=== PATIENT | female | born 1935 | race Caucasian/White ===

== ENCOUNTER → 2017-11-02 | Outpatient (REF) | payer MEDICARE ==
[2017-11-02 17:28] LABS: PLATELET COUNT, AUTOMATED 154 10^3/uL (150-450)
[2017-11-02 17:37] LABS: INR 1.35; PROTHROMBIN TIME 16.8 SECONDS (12.1-14.4)
== END ==
LOC: M LAB REF 16:51
DX: Z01.812 Encounter for preprocedural laboratory examination (principal); Z79.899 Other long term (current) drug therapy; Z79.4 Long term (current) use of insulin
CPT/HCPCS: 85049

== ENCOUNTER → 2017-11-10 | Outpatient (CLI) | payer MEDICARE ==
[2017-11-10 12:36] LABS: BF MONONUCLEAR CELL % 98.3 % (0-0); BF POLYMORPHONUCLEAR CELL % 1.7 % (0-0); RBC BODY FLUID 23 10^3/uL (<2); WBC BODY FLUID 463 /uL (0-10)
[2017-11-10 12:37] LABS: APPEARANCE, BODY FLUID CLOUDY (CLEAR); BF DIFF IF INDICATED? YES (NO); PLEURAL FL COLOR AMBER (COLORLESS); SOURCE, BODY FLUID PLEURAL
[2017-11-10 12:48] LABS: PH BODY FLUID 7.525 UNITS (NOT ESTABLISHED); SOURCE, BODY FLUID pH PLEURAL
[2017-11-10 12:54] LABS: AMYLASE, BODY FLUID 26 U/L (NOT ESTABLISHED); LDH, BODY FLUID 126 U/L (NOT ESTABLISHED); SOURCE, BODY FLUID AMYLASE PLEURAL; SOURCE, BODY FLUID GLUCOSE PLEURAL; SOURCE, BODY FLUID LDH PLEURAL; SOURCE, BODY FLUID TOT PROTEIN PLEURAL; TOTAL PROTEIN, BODY FLUID 3.4 G/DL (NOT ESTABLISHED)
== END ==
LOC: M RADPRO 10:41
DX: J90 Pleural effusion, not elsewhere classified (principal); R06.00 Dyspnea, unspecified; R18.8 Other ascites
CPT/HCPCS: 32555

== ENCOUNTER → 2019-12-05 | Outpatient (CLI) | payer MEDICARE ==
[~2019-12-05] MED LIST: /GLIP10TAB OR; DIOVAN PO; FURO20TA2 PO; GLIP-162 PO; GLIP5TAB2 OR; GLUC1000 OR; LACT20EL PO; LANTINJ4 SC; OMEP-218 PO; SPIR50TA4 PO; VENTAER INH; VERA120C PO
--- NOTE | 2019-12-05 12:44 | REPVR ---
PROCEDURE INFORMATION: Exam: US Duplex Right Lower Extremity Veins, Limited Exam date and time: 12/05/2019 12:04 PM Age: 84 years old Clinical indication: Pain; Leg, lower; Right; Additional info: Pain in right lower leg, fell and broke calf bone 3 weeks ago, unsure which TECHNIQUE: Imaging protocol: Real-time Duplex ultrasound of the Right Lower Extremity with 2-D ferguson scale, color Doppler flow and spectral waveform analysis with image documentation. Limited exam was focused on the right lower extremity veins. COMPARISON: No relevant prior studies available. FINDINGS: Right deep veins: The common femoral, femoral, proximal profunda femoral and popliteal veins are patent without thrombus. Normal Doppler waveforms. Normal compressibility and/or augmentation response. Right superficial veins: Unremarkable. Saphenofemoral junction is patent without thrombus. Soft tissues: Unremarkable. IMPRESSION: No evidence of deep vein thrombosis. There is mild calcification in the wall of the mid to distal right femoral vein which could be secondary to a chronic thrombus. Electronically signed by: Eldon Shen On 12/05/2019 12:44:32 PM
== END ==
LOC: M RAD 11:42
PROVIDERS: ATTEND Physician Assistant Surgical
DX: M79.661 Pain in right lower leg (principal)

== ENCOUNTER 2020-02-25 13:08 | Inpatient (IN) | payer MEDICARE ==
[~2020-02-25] VITALS: Ht 152.4 cm; Wt 66.1 kg
[2020-02-25] MEDS ORDERED: GLUCOSE 4GM CHEW TABLET PO PRN (19:30)
[2020-02-25] MEDS ORDERED: GLUCAGON INJ 1MG VIAL SC PRN (19:30)
[2020-02-25] MEDS ORDERED: DEXTROSE 50% 50 ML SYRINGE IV PRN (19:30)
[2020-02-25] MEDS ORDERED: ACETAMINOPHEN TAB 650MG DOSE (2X325MG) PO PRN (19:30)
[2020-02-25] MEDS: LEVALBUTEROL 1.25 MG/0.5 ML CONCENTRATE NEB INH SCH (20:00)
[2020-02-25] MEDS ORDERED: TORS20TA2 PO (20:25)
[2020-02-25] MEDS ORDERED: SPIR-10 PO (20:25)
[2020-02-25] MEDS ORDERED: ASPI81TA26 PO (20:29)
[2020-02-25] MEDS ORDERED: INSULADS INJ (20:29)
[2020-02-25 20:46] LABS: MEAN CORPUSCULAR HGB CONC 32.4 g/dl (32.0-36.5); MEAN CORPUSCULAR VOLUME 104.8 fl (80.0-96.0); PLATELET COUNT, AUTOMATED 220 10^3/uL (150-450); RED BLOOD COUNT 3.53 10^6/uL (4.00-5.40); WHITE BLOOD COUNT 8.1 10^3/uL (4.0-10.0)
--- NOTE | 2020-02-25 20:57 | HPEPDOC ---
[facility] Medical History & Physical Date of Admission Feb 25, 2020 Date of Service: Feb 25, 2020 History and Physical Chief complaint: Transferred from [facility] for right hip fracture History of present illness: Patient is an 84-year-old female with a PMHx of Liver disease (reported Cirrhosis), Pacemaker, HTN, DLP, IDDM2, Murmur (since childhood) who presented February to [facility] as a transfer from [facility] after she had a right hip fracture. Patient reported that she has been in and out of the hospital after she had fallen on November 12. She has been at the [facility] in [facility] and was discharged on 02/23. Patient reported that that morning she was doing well. However, in the evening, she had fallen on her right side and reported severe pain. Patient went to [facility] over further evaluation and she was transferred to [facility] for orthopedic evaluation. Currently patient is seen resting in bed, does not appear to be in any discomfort. She denies any chest pain, shortness breath or palpitations. Patient reported that she fell yesterday. She did not lose consciousness or sustain any head trauma. Patient denies any nausea, vomiting about pain consultation, diarrhea, or urinary discomfort. Patient denies any stroke or heart attack. Reports that she has had a stress test several years ago and reports that 2 months ago she was able to go up and down a flight of stairs without any problems. Patient doesnt appear to be the best historian and I have contacted her sister Jo Ann at [phone]. Past Medical History: Liver disease (reported Cirrhosis), Pacemaker, HTN, DLP, IDDM2, Murmur (since childhood) Past Surgical History: Hysterectomy Appendectomy Cholecystectomy Allergies: See below Medications: See below Family History: - Reviewed and noncontributory Social History: - Denies the use of alcohol or illicit drugs; Quit smoking - Denies recent travel or sick contacts - Lives alone Review of Systems: 10 point review of systems complete, all negative otherwise stated in HPI Physical exam: - Vitals: BP [123/87], HR [74], RR [16], Sat [100%RA], Temp [98.5F] - General: Lying in bed, No acute distress, Speaking in full sentences, AAOx3 - HEENT: NC, AT, PERRLA, EOMI - CVS: RRR, +S1S2, + systolic murmur - Lungs: Fair air entry bilaterally, No appreciable wheezing / rales / rhonchi - Abdomen: Soft, Non-distended, Non-tender - Extremities: No lower extremity edema, No calf tenderness, R leg is externally rotated and shorter than Left - Neuro: No focal motor or sensory deficit - Skin: No visible rashes Labs: See below Imaging: See below EKG: See below Assessment and Plan: Right femoral neck fracture - likely 2/2 mechanical fall - Patient had fallen on the evening of 02/23 - Discussed with patient and sister; patient was discharged from [facility] in [place] on 02/23 and was not able to ambulate well - Patient denies any loss of consciousness or head trauma - Imaging from [facility] consistent with fracture of femoral neck - Orthopedic surgery has been consulted; will keep NPO post-midnight; plan for OR intervention at noon - Discussed with patient and sister patient is at moderate/high risk for low risk procedure - Lab work / CXR / EKG pending Liver disease (reported Cirrhosis) - Currently patient is oriented to person, place and time - Physical does not reveal any evidence of decompensated cirrhosis - Will check ultrasound of liver - Will check Ammonia - c/w Lactulose / Torsemide / Spironolactone Pacemaker - Discussed with sister. Patient has had a pacemaker and lead change October 2019 - Will check EKG HTN - BP currently well controlled DLP - Currently not on medications IDDM2 - Will c/w ISS and long acting insulin (dose unverified) - Will continue with twice a day dosing of Levemir and adjust based on glucose levels Murmur - As per sister patient has had this since childhood - Will get ECHO GERD - Will c/w Omeprazole DVT prophylaxis - Will start TEDs/Sequentials pre-surgery; post-surgery will be as per orthopedic surgery Laboratory Data Labs 24H Laboratory Tests 2 02/25/20 20:27: Nucleated Red Blood Cells % (auto) 0.0 CBC/BMP Laboratory Tests 02/25/20 20:27 Home Medications Scheduled Aspirin (Aspirin EC) 81 Mg Tablet.dr, 81 MG PO DAILY Glipizide (Glipizide Xl) 5 Mg Tab, 5 MG PO DAILY TAKES @ 1130 Insulin Glargine (Lantus) 100 Unit/1 Ml Vial, Unknown Dose INJ QHS PT'S SISTER STATES THAT [facility] CHANGED THE DOSE BUT WASN'T SURE TO WHAT DEGREE. Lactulose (Lactulose) 10 Gm/15 Ml Skylar, 30 ML PO TID Omeprazole (Omeprazole) 20 Mg Cap, 20 MG PO DAILY Spironolactone (Spironolactone) 25 Mg Tablet, 25 MG PO DAILY Torsemide (Torsemide) 20 Mg Tablet, 20 MG PO DAILY PT WAS ON FUROSEMIDE 20MG DAILY. CHANGED BY [facility] TO TORSEMIDE Scheduled PRN Albuterol Sulfate (Ventolin Hfa) 108 Mcg/Act Aer, 2 PUFF INH Q4H PRN for SHORTNESS OF BREATH Allergies Coded Allergies: No Known Drug Allergies (Verified Allergy, Unknown, 02/25/20) meperidine (Verified Adverse Reaction, Mild, N/V, 02/25/20) EZEQUIEL SANCHES MD Feb 25, 2020 20:57
--- NOTE | 2020-02-25 20:57 | REPVR ---
PROCEDURE INFORMATION: Exam: XR Chest, 1 View Exam date and time: 02/25/2020 8:16 PM Age: 84 years old Clinical indication: Shortness of breath; Additional info: Pre-op TECHNIQUE: Imaging protocol: XR of the chest Views: 1 view. COMPARISON: CT Chest without contrast 11/10/2017 12:18 PM FINDINGS: Lungs: There is right basilar atelectasis and volume loss in the right hemithorax. Pleural space: There is a moderate to large right pleural effusion. No pneumothorax is identified. Heart/Mediastinum: There is a left subclavian pacemaker device in place with intact leads projecting over the expected locations of the right atrium and right ventricle. No cardiomegaly is noted. There is a shift of the mediastinum to the right of midline. Bones/joints: Unremarkable. IMPRESSION: Moderate to large right pleural effusion with associated right basilar atelectasis. Electronically signed by: Jose Navarro On 02/25/2020 20:56:59 PM
[2020-02-25 20:59] LABS: INR 1.4; PROTHROMBIN TIME 17.5 SECONDS (12.5-14.3)
[2020-02-25 21:00] VITALS: BP 127/71
[2020-02-25] MEDS: HumaLOG INSULIN (NovoLOG) PER UNIT SC SCH (21:00)
[2020-02-25 21:14] LABS: ALBUMIN 2.5 GM/DL (3.2-5.2); BILIRUBIN,TOTAL 2.9 MG/DL (0.2-1.0); CALCIUM LEVEL 10.4 MG/DL (8.8-10.2); CREATININE FOR GFR 0.99 MG/DL (0.55-1.30); GLOMERULAR FILTRATION RATE 56.9 (>32); POTASSIUM SERUM 3.7 MEQ/L (3.5-5.1); TOTAL PROTEIN 7.8 GM/DL (6.4-8.2)
[2020-02-25 21:22] LABS: FREE T4 1.31 NG/DL (0.76-1.46); THYROID STIMULATING HORMONE 1.37 uIU/ML (0.358-3.740)
[2020-02-25] MEDS ORDERED: LEVALBUTEROL 1.25 MG/0.5 ML CONCENTRATE NEB INH PRN (22:00)
[2020-02-25 22:03] LABS: CORTISOL PM 14.2 UG/DL (3.1-16.7); TOTAL T3 71.3 NG/DL (60.0-181.0)
[2020-02-25] MEDS: LEVEMIR (INSULIN DETEMIR) 1 UNITS/0.01ML SC SCH (22:39)
--- NOTE | 2020-02-25 22:46 | CR ---
CONSULTATION REASON FOR CONSULTATION: Right femoral neck fracture. HISTORY OF PRESENT ILLNESS: An 84-year-old female who was recently discharged from the [facility] up in [place], went home and then during the evening got up out of bed and apparently fell and she complained of right hip pain and presented to [facility] and was found to have a right femoral neck fracture. She was in rehab recovering from a right proximal tibia fracture which was treated closed with just a cast. She was initially treated for that down at [facility] and then followed up at [facility]. She has resolved that. She complains of isolated soreness of the right hip. No loss of consciousness. No tingling or numbness otherwise and she is transferred and admitted to [address] [place] [address] where I am seeing her in consultation with Dr. Corbett, the Hospitalist. She complains only of right hip pain at the present time. PAST MEDICAL HISTORY: The patient's past medical history is significant for: 1. Insulin dependent diabetes mellitus. 2. Liver failure. 3. Coronary artery disease. 4. Arrhythmias with syncopal episodes. 5. Hypertension. 6. Asthma. 7. History of pulmonary hypertension. PAST SURGICAL HISTORY: The patient's past surgical history is significant for: 1. Pacemaker placement with battery changes. 2. Appendectomy. 3. Cholecystectomy. 4. Hysterectomy. ALLERGIES: Demerol. MEDICATIONS: 1. Lactulose. 2. Omeprazole. 3. Albuterol. 4. Insulin. 5. Multivitamin. 6. Nadolol. 7. Spironolactone. 8. Torsemide. 9. Glipizide. 10. Magnesium Oxide. 11. Loperamide. SOCIAL HISTORY: She does not smoke. She quit many years ago. She does not drink alcohol. She is , lives alone in the [place] area. She has a sister in [place], named Jo Ann. She has no children. PHYSICAL EXAMINATION: GENERAL APPEARANCE: This is a pleasant female. She is actually alert and oriented. VITAL SIGNS: Temperature is 97.5 with a pulse of 70, respirations 20, blood pressure 113/68. HEENT: Normocephalic and atraumatic. The extraocular muscles grossly normal. NECK: Nontender. EXTREMITIES: Upper extremities she could elevate up over her head. There is no pain, soreness, crepitance or deformity noted of her shoulders, humeri, elbows, forearms or wrists. LUNGS: Diffuse, scattered, mild wheezes. HEART: There was a heart murmur that we could hear. ABDOMEN: Obese but nontender. EXTREMITIES: Right lower extremity was shortened and externally rotated with good strong dorsalis pedis pulse. She could dorsi flex and plantar flex her ankle well with normal sensation to light touch. Left lower extremity was benign on exam. LABORATORY DATA: White count of 9.4, hematocrit 33, platelets 190 with a sodium of 131, potassium 3.7, chloride 96, bicarbonate 28.9, BUN 15, creatinine 1.1. She did have an elevated alkaline phosphatase of 372 and an elevated bilirubin of 2.9 which apparently is chronic from her liver failure. IMAGING DATA: X-rays of the right hip showed a displaced femoral neck fracture. She had a head CT which by report is normal and showed no acute findings. IMPRESSION: Right displaced femoral neck fracture in an 84-year-old female with multiple medical comorbidities. PLAN: She is being admitted and evaluated by the Hospitalist, Dr. Corbett, who we examined her together and discussed the nature of her problems and nature of her fracture, and I discussed this with her in detail. I would recommend a right hip hemiarthroplasty for this type of fracture for her, but this does carry the risk of having surgery which I discussed with her. There is a risk of infection, damage to nerves, blood vessels, anesthetic complications, phlebitis, embolism, heart attack, , amongst others. She understands when I explained this to her. We plan to get her medically optimized and hopefully proceed with surgery tomorrow if she is felt to be medically optimized. So she signed the consent tonight and we plan for subsequently tomorrow. [facility]
[2020-02-26] VITALS (7 sets, daily range): BP systolic 96–127; BP diastolic 60–73
[2020-02-26] MEDS: LACTULOSE 20 GM/30 ML SYRUP UD PO SCH ×5 (00:36→23:38)
--- NOTE | 2020-02-26 02:22 | REPVR ---
PROCEDURE INFORMATION: Exam: US Abdomen, Limited; Right Upper Quadrant Exam date and time: 02/25/2020 9:47 PM Age: 84 years old Clinical indication: Cirrhosis; Patient HX: PT is confused and is a poor historian TECHNIQUE: Imaging protocol: US abdomen. Real time ultrasound with image documentation. Limited exam focused on the right upper quadrant. COMPARISON: CT Chest without contrast 11/10/2017 12:18:58 PM FINDINGS: Liver: The liver has a nodular contour, which can be seen with cirrhosis. There is a 3.4 cm x 3.9 cm x 3.6 cm heterogeneous lesion in the right hepatic lobe. Gallbladder: There has been a cholecystectomy. There is no fluid collection in the gallbladder fossa. Common bile duct: The common bile duct is dilated and measures 12 mm in diameter at the level of the feroz hepatis, which is stable compared to the prior CT chest on 11/10/2017. Pancreas: The imaged portion of the pancreas is unremarkable. Right kidney: The right kidney measures 9.9 cm in length. There is a 1.5 cm x 1.6 cm x 1.7 cm benign-appearing simple exophytic cyst arising from the upper pole of the right kidney, for which imaging follow-up is not recommended. Portal venous: The main portal vein is dilated and measures 15 mm in diameter. Intraperitoneal space: No free fluid is seen from the images obtained. IMPRESSION: Cirrhotic liver with a 3.4 cm x 3.9 cm x 3.6 cm lesion in the right hepatic lobe. Further with a multiphasic liver protocol MRI abdomen without and with intravenous contrast is suggested. COMMENTS: Consistent with the [employer]'s Incidental Findings Committee white paper (J Am Lucía Radiol 2018): Any incidental renal lesion less than 1 cm or classified as too small to characterize, or any incidental cystic renal lesion characterized as simple-appearing, is likely benign. No follow-up imaging is recommended for these lesions per consensus recommendations based on imaging criteria. Electronically signed by: Jose Navarro On 02/26/2020 02:22:52 AM
[2020-02-26] MEDS: ceFAZolin SOD 2 GM in IV 1 EA IV ONE ×2 (06:00→06:29)
[2020-02-26] MEDS: HumaLOG INSULIN (NovoLOG) PER UNIT SC SCH ×4 (07:30→21:00)
[2020-02-26] MEDS: LEVALBUTEROL 1.25 MG/0.5 ML CONCENTRATE NEB INH SCH ×4 (07:47→20:13)
[2020-02-26] MEDS: LEVEMIR (INSULIN DETEMIR) 1 UNITS/0.01ML SC SCH ×2 (07:59→22:27)
[2020-02-26 08:21] LABS: BASO # 0.1 10^3/uL (0.0-0.2); BASO % 0.8 % (0.0-1.0); EOS # 0.1 10^3/uL (0.0-0.5); EOS % 2.1 % (0.0-3.0); HEMATOCRIT 36.7 % (36.0-47.0); HEMOGLOBIN 11.6 g/dl (12.0-15.5); LYMPH # 0.7 10^3/uL (1.5-5.0); LYMPH % 9.9 % (24.0-44.0); MEAN CORPUSCULAR HEMOGLOBIN 33.5 pg (27.0-33.0); MEAN CORPUSCULAR HGB CONC 31.6 g/dl (32.0-36.5); MEAN CORPUSCULAR VOLUME 106.1 fl (80.0-96.0); MONO # 0.9 10^3/uL (0.0-0.8); MONO % 14.4 % (0.0-5.0); NEUTROPHILS # 4.7 10^3/uL (1.5-8.5); NEUTROPHILS % 72.3 % (36.0-66.0); PLATELET COUNT, AUTOMATED 212 10^3/uL (150-450); RED BLOOD COUNT 3.46 10^6/uL (4.00-5.40); WHITE BLOOD COUNT 6.6 10^3/uL (4.0-10.0)
[2020-02-26 08:41] LABS: ALBUMIN 2.2 GM/DL (3.2-5.2); BILIRUBIN,TOTAL 2.6 MG/DL (0.2-1.0); CALCIUM LEVEL 10.2 MG/DL (8.8-10.2); CREATININE FOR GFR 1.1 MG/DL (0.55-1.30); GLOMERULAR FILTRATION RATE 50.4 (>32); MAGNESIUM LEVEL 1.9 MG/DL (1.8-2.4); TOTAL PROTEIN 7.2 GM/DL (6.4-8.2)
[2020-02-26] MEDS ORDERED: PANTOPRAZOLE 40MG VIAL (C9113 PER 1) IV ONE (09:00)
[2020-02-26] MEDS ORDERED: TORSEMIDE 20 MG TAB PO SCH (09:00)
[2020-02-26] MEDS ORDERED: OMEPRAZOLE 20 MG CAP PO SCH (09:00)
[2020-02-26] MEDS ORDERED: SPIRONOLACTONE 25 MG TAB PO SCH (09:00)
--- NOTE | 2020-02-26 12:42 | REP ---
INDICATION: R effusion COMPARISON: 03/18/2019 TECHNIQUE: Real time ferguson scale ultrasound examination using curved array transducer. FINDINGS: Directed limited examination along the right posterior inferior hemithorax demonstrates very minimal amount of complex pleural fluid below the limits for safe thoracentesis. IMPRESSION: Small amount of right pleural fluid insufficient for thoracentesis. <Electronically signed by Glenn Mohr > 02/26/20 [id number]
[2020-02-26] MEDS ORDERED: ceFAZolin 1GM VIAL (J0690 PER 500MG) As Ordered ONE (12:53)
[2020-02-26] MEDS ORDERED: EPINEPHrine INJ 1 MG/ML 1ML AMP As Ordered ONE (12:53)
[2020-02-26] MEDS ORDERED: NS 500 ML IV ONE (14:15)
[2020-02-26] MEDS ORDERED: NS 1,000 ML IV SCH (14:15)
--- NOTE | 2020-02-26 14:29 | ECGEPIP ---
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
[2020-02-26] MEDS ORDERED: ceFAZolin 2 GM/D5W 50 ML IV BAG (J0690 PER 500MG) As Ordered ONE (15:03)
[2020-02-26] MEDS ORDERED: LIDOCAINE 2% 100MG/5ML SDV (FOR ANES.) As Ordered ONE (15:07)
[2020-02-26] MEDS ORDERED: fentaNYL 100 MCG/2 ML INJECTION (J3010) As Ordered ONE ×2 (15:07→18:51)
[2020-02-26] MEDS ORDERED: propofoL 500 MG/50 ML VIAL As Ordered ONE (15:07)
[2020-02-26] MEDS ORDERED: MIDAZOLAM INJ 2MG/2ML VIAL (J2250 PER 1MG) As Ordered ONE (15:07)
[2020-02-26] MEDS ORDERED: KETAMINE HCL 200 MG/20 ML VIAL As Ordered ONE (15:59)
[2020-02-26] MEDS ORDERED: PHENYLEPHRINE 10MG/ML 1ML VIAL (J2370 PER 1) As Ordered ONE (16:25)
[2020-02-26] MEDS ORDERED: PHENYLephrine HCL 500 MCG/5 ML (100MCG/ML) SYRINGE (J2370) As Ordered ONE ×2 (16:34→18:51)
[2020-02-26] MEDS ORDERED: fentaNYL 100 MCG/2 ML INJECTION (J3010) IV PRN (19:00)
[2020-02-26] MEDS ORDERED: LR 1,000 ML IV SCH (19:00)
[2020-02-26] MEDS ORDERED: oxyCODONE 5MG TAB PO PRN (19:00)
--- NOTE | 2020-02-26 19:04 | REP ---
INDICATION: POST OP. COMPARISON: None. TECHNIQUE: AP and cross-table lateral portably obtained radiographs of the right hip. FINDINGS: Lateral skin zach and periarticular soft tissue emphysema is seen. Right femoral head is been replaced. Right hip joint is rib normally aligned. Femoral stem prosthesis is in good position. IMPRESSION: Status post hemiarthroplasty right hip. <Electronically signed by Abdiel Vieira > 02/26/20 [id number]
[2020-02-26] MEDS ORDERED: LR 500 ML IV SCH (19:15)
[2020-02-26] MEDS ORDERED: PHENYLephrine HCL 500 MCG/5 ML (100MCG/ML) SYRINGE (J2370) IV SCH (19:15)
--- NOTE | 2020-02-26 20:10 | IPNPDOC ---
Subjective Date Seen The patient was seen on 02/26/20. Subjective Chief Complaint/HPI Ms. Cabello is an 84 year old female with history of cirrhosis and recent right hip fracture who is here after having a fall and fracturing the right femur neck. This morning, denies fever, chest pain, abdominal pain, or dysuria. She says she gets short of breath with anxiety, but otherwise, no shortness of breath at rest. Imaging demonstrated right pleural effusion. Spoke with IR about draining fluid. They were unable to perform thoracentesis since she cannot sit upright with her hip fracture. Spoke with pulmonology. It appears that her lung did not re-expand after thoracentesis in 2018, so she had an entrapped lung and it may be a chronic finding. Patient was saturating well at room air. Otherwise spoke with Cardiology about echocardiogram. EF was good and patient had moderate aortic stenosis. RCRI score of 1 which correlates to class II risk. There is no contraindication to surgery. Patient to go down to OR today. Objective Physical Examination General Exam: Positive: Cooperative Eye Exam: Positive: EOMI; Negative: Sclera icteric ENT Exam: Positive: Atraumatic Neck Exam: Positive: Supple Chest Exam: Positive: Diminished (right side) Heart Exam: Positive: Rate Normal, Regular Rhythm Abdomen Exam: Positive: Normal bowel sounds, Soft; Negative: Tenderness Extremity Exam: Negative: Edema Neuro Exam: Positive: Normal Speech Psych Exam: Positive: Mental status NL, Mood NL Assessment /Plan Assessment Ms. Cabello is an 84 year old female with history of cirrhosis and recent right hip fracture who is here after having a fall and fracturing the right femur neck. XR findings of right lung may be chronic as her lung did not re-expand in 2018. 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 Respiratory status stable. RCRI score of 1 which is class II risk (for insulin dependent diabetes mellitus). Echocardiogram demonstrated moderate aortic stenosis. There is no contraindication to surgery. Patient to go to the OR today. Plan/VTE VTE Prophylaxis Ordered?: Yes Plan 1. Right femoral neck fracture 2/2 mechanical fall -Orthopedic surgery consulted, recommendations appreciated -Went to the OR on 02/26/2020 -Most likely will need acute rehab 2. Right entrapped lung -Thoracentesis in 2018 did not re-expand lung -Finding may be chronic -Saturating well at room air -Will request pulmonary to see patient tomorrow after procedure 3. Cirrhosis -Continue with Torsemide, spironolactone, and lactulose 4. DM -Continue insulin sliding scale and levemir 5. Pacemaker -Placed for recurrent syncopal episode due to bradycardia. [place] [address]avi and Dr[address] Watts 6. GERD -Continue omeprazole 7. DVT ppx -Per orthopedic recommendation VS, I&O, 24H, Fishbone Vital Signs/I&O Vital Signs Date Time Temp Pulse Resp B/P (MAP) Pulse Ox O2 Delivery O2 Flow Rate FiO2 02/26/20 19:10 97.8 69 18 104/58 (73) 97 Room Air 02/26/20 18:06 2 I&O- Last 24 Hours up to 6 AM 02/26/20 06:00 Intake Total 0 ml Output Total 200 ml Balance -200 ml Laboratory Data 24H LABS Laboratory Tests 2 02/25/20 20:27: Nucleated Red Blood Cells % (auto) 0.0, Prothrombin Time 17.5H, Prothromb Time International Ratio 1.40, Anion Gap 6L, Glomerular Filtration Rate 56.9, Osmolality 288, Calcium Level 10.4H, Total Bilirubin 2.9H, Gamma Glutamyl Transferase 196H, Aspartate Amino Transf (AST/SGOT) 37, Alanine Aminotransferase (ALT/SGPT) 12, Alkaline Phosphatase 365H, Ammonia 45H, Total Protein 7.8, Albumin 2.5L, Albumin/Globulin Ratio 0.5L, Procalcitonin 0.24, Thyroid Stimulating Hormone (TSH) 1.370, Free Thyroxine 1.31, Total Triiodothyronine 71.3, Cortisol PM Sample 14.2 02/26/20 03:20: Coronavirus (COVID-19)(PCR) NEGATIVE 02/26/20 07:30: Urine Random Osmolality 495L, Urine Random Creatinine 102.0, Urine Random Sodium 35 02/26/20 07:56: Bedside Glucose (Misc Panel) 128H 02/26/20 08:02: Immature Granulocyte % (Auto) 0.5, Neutrophils (%) (Auto) 72.3H, Lymphocytes (%) (Auto) 9.9L, Monocytes (%) (Auto) 14.4H, Eosinophils (%) (Auto) 2.1, Basophils (%) (Auto) 0.8, Neutrophils # (Auto) 4.7, Lymphocytes # (Auto) 0.7L, Monocytes # (Auto) 0.9H, Eosinophils # (Auto) 0.1, Basophils # (Auto) 0.1, Nucleated Red Blood Cells % (auto) 0.0, Anion Gap 5L, Glomerular Filtration Rate 50.4, Calcium Level 10.2, Magnesium Level 1.9, Total Bilirubin 2.6H, Aspartate Amino Transf (AST/SGOT) 34, Alanine Aminotransferase (ALT/SGPT) 12, Alkaline Phosphatase 318H, Lactate Dehydrogenase 277H, Total Protein 7.2, Albumin 2.2L, Albumin/Globulin Ratio 0.4L 02/26/20 12:23: Bedside Glucose (Misc Panel) 150H 02/26/20 18:22: Bedside Glucose (Misc Panel) 165H CBC/BMP Laboratory Tests 02/25/20 20:27 02/26/20 08:02 PREMA DEL VALLE DO Feb 26, 2020 20:10
[2020-02-26] MEDS: LR 1,000 ML IV SCH (22:27)
[2020-02-26] MEDS: ASPIRIN 81 MG CHEW TABLET PO SCH (22:27)
[2020-02-26] MEDS: ceFAZolin SOD 2 GM in IV 1 EA IV SCH (23:36)
[2020-02-27 00:30] VITALS: BP 106/60
[2020-02-27 04:30] VITALS: BP 106/61
[2020-02-27] MEDS: LACTULOSE 20 GM/30 ML SYRUP UD PO SCH ×2 (05:33→12:20)
[2020-02-27] MEDS: ceFAZolin SOD 2 GM in IV 1 EA IV SCH ×2 (05:33→15:15)
[2020-02-27 05:55] LABS: BASO % 0.5 % (0.0-1.0); EOS % 0.5 % (0.0-3.0); HEMATOCRIT 27.6 % (36.0-47.0); LYMPH # 0.5 10^3/uL (1.5-5.0); LYMPH % 7.5 % (24.0-44.0); MEAN CORPUSCULAR HEMOGLOBIN 33.5 pg (27.0-33.0); MEAN CORPUSCULAR HGB CONC 30.8 g/dl (32.0-36.5); MEAN CORPUSCULAR VOLUME 108.7 fl (80.0-96.0); MONO # 1.2 10^3/uL (0.0-0.8); MONO % 17.7 % (0.0-5.0); NEUTROPHILS # 4.8 10^3/uL (1.5-8.5); NEUTROPHILS % 73.3 % (36.0-66.0); PLATELET COUNT, AUTOMATED 198 10^3/uL (150-450); RED BLOOD COUNT 2.54 10^6/uL (4.00-5.40); WHITE BLOOD COUNT 6.6 10^3/uL (4.0-10.0)
[2020-02-27 06:00] LABS: HEMOGLOBIN 8.5 g/dl (12.0-15.5)
[2020-02-27] MEDS ORDERED: traMADol 50 MG TAB PO PRN (06:15)
[2020-02-27 06:19] LABS: ALBUMIN 1.9 GM/DL (3.2-5.2); BILIRUBIN,TOTAL 2.3 MG/DL (0.2-1.0); CALCIUM LEVEL 9.3 MG/DL (8.8-10.2); CREATININE FOR GFR 1.34 MG/DL (0.55-1.30); GLOMERULAR FILTRATION RATE 40.1 (>32); MAGNESIUM LEVEL 1.7 MG/DL (1.8-2.4); POTASSIUM SERUM 4.3 MEQ/L (3.5-5.1); TOTAL PROTEIN 5.8 GM/DL (6.4-8.2)
[2020-02-27] MEDS: LEVALBUTEROL 1.25 MG/0.5 ML CONCENTRATE NEB INH SCH ×3 (07:18→15:19)
[2020-02-27] MEDS: LR 1,000 ML IV SCH (07:30)
[2020-02-27] MEDS: ACETAMINOPHEN 500 MG TAB PO SCH ×2 (08:54→15:15)
[2020-02-27] MEDS: MIRALAX *UNIT DOSE* 17GM PACKET PO SCH ×2 (09:00→09:45)
[2020-02-27] MEDS: MOM 30ML SUSPENSION UDC PO SCH ×2 (09:00→09:45)
[2020-02-27] MEDS: ASPIRIN 81 MG CHEW TABLET PO SCH (09:45)
[2020-02-27] MEDS: LEVEMIR (INSULIN DETEMIR) 1 UNITS/0.01ML SC SCH (09:46)
[2020-02-27] MEDS: HumaLOG INSULIN (NovoLOG) PER UNIT SC SCH ×2 (09:47→12:19)
[2020-02-27 10:00] VITALS: BP 86/49
[2020-02-27 11:00] LABS: HEMATOCRIT 25.7 % (36.0-47.0); HEMOGLOBIN 8.3 g/dl (12.0-15.5); MEAN CORPUSCULAR HEMOGLOBIN 34.4 pg (27.0-33.0); MEAN CORPUSCULAR HGB CONC 32.3 g/dl (32.0-36.5); MEAN CORPUSCULAR VOLUME 106.6 fl (80.0-96.0); PLATELET COUNT, AUTOMATED 192 10^3/uL (150-450); RED BLOOD COUNT 2.41 10^6/uL (4.00-5.40); WHITE BLOOD COUNT 8.1 10^3/uL (4.0-10.0)
[2020-02-27] MEDS ORDERED: NS 500 ML IV ONE (11:45)
[2020-02-27 12:23] VITALS: BP 105/59
[2020-02-27 13:27] VITALS: BP 103/59
[2020-02-27 14:00] VITALS: BP 104/75
[2020-02-27] MEDS ORDERED: MOM30SS2 PO (14:29)
[2020-02-27] MEDS ORDERED: INSUDET SC (14:29)
[2020-02-27] MEDS ORDERED: ACET-683 PO (14:29)
[2020-02-27] MEDS ORDERED: ASPI81CH8 PO (14:29)
[2020-02-27] MEDS ORDERED: INSUHUMDS SC ×2 (14:29)
[2020-02-27] MEDS ORDERED: LEVA12INH INH (14:29)
[2020-02-27] MEDS ORDERED: TRAM50TA2 PO (14:29)
[2020-02-27] MEDS ORDERED: PEG1POW PO (14:29)
--- NOTE | 2020-02-28 00:15 | DS.PDOC ---
Discharge Summary General Date of Admission Feb 25, 2020 at 18:05 Date of Discharge Feb 27, 2020 Attending Physician: PREMA DEL VALLE DO Specialist/Consultants [facility] Orthopedic surgery, Dr. Millard Pulmonary, Dr. Guerrero Discharge Summary PROCEDURES PERFORMED DURING STAY: Hemiarthroplasty of right hip, cemented on 02/26/2020 ADMITTING DIAGNOSES: 1. Right femoral neck fracture 2/2 fall 2. Cirrhosis 3. Bradycardia s/p pacemaker placement 4. HTN 5. Dyslipidemia 6. Diabetes Mellitus type 2 7. GERD DISCHARGE DIAGNOSES: 1. Right femoral neck fracture 2/2 fall 2. Cirrhosis 3. Bradycardia s/p pacemaker placement 4. HTN 5. Dyslipidemia 6. Diabetes Mellitus type 2 7. GERD COMPLICATIONS/CHIEF COMPLAINT: Right Fem Neck Fracture. HISTORY OF PRESENT ILLNESS: Mrs. Cabello is an 84 year old female with cirrhosis, DM2, and bradycardia s/p pacemaker transferred here from [facility] transferred here for a mechanical fall with subsequent right hip fracture. Patient had completed rehabilitation in [facility] and was discharged on 02/23. On the same day of discharge, she had mechanical fall on her right side and had severe pain. Patient went to [place] for further evaluation and was transferred here for orthopedic evaluation. HOSPITAL COURSE: During pre-op workup, it was noted that she had right pleural effusion. Discussed with pulmonary about case. In 2018, patient had a right thoracentesis and right lung has not re-expanded afterwards. 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 The pleural effusion in the CXR is actually the heart shifted to the right, and the effusion is mild. Patient went to surgery on 02/26/2020. Today, she denies any fever, chest pain, or abdominal pain. Dyspnea is not worse than before. Touched base with orthopedic surgery. Aspirin 81mg BID for 35 days for DVT ppx. DISCHARGE MEDICATIONS: Please see below. ALLERGIES: Please see below. PHYSICAL EXAMINATION ON DISCHARGE: VITAL SIGNS: Please see below. GENERAL: Comfortable, in no apparent distress. HEENT: EOMI, sclera clear. NECK: Supple. RESPIRATORY: Diminished breath sound on right lower side. CARDIOVASCULAR: Regular rate and rhythm. ABDOMEN: Soft, nontender, no guarding or rebound tenderness. Normal bowel sounds. MUSCLE SKELETAL: No pitting edema NEUROLOGICAL: CN 312 grossly intact, no focal deficits noted. PSYCHOLOGICAL: Normal mood and affect LABORATORY DATA: Please see below. IMAGING: Chest x-ray Moderate to large right pleural effusion with associated right basilar atelectasis. PROGNOSIS: Stable ACTIVITY: Weightbearing as tolerated. DIET: Carbohydrate consistent DISCHARGE PLAN: Transfer to ARU DISPOSITION: 70 Xfer Other. DISCHARGE INSTRUCTIONS: 1. With her provider at ARU 2. Continue aspirin 81mg BID for 35 days for DVT ppx per orthopedic 3. Weight bearing as tolerated DISCHARGE CONDITION: Stable Total time spent on discharge planning, discharge summary, and medication reconciliation: 45 minutes. Vital Signs/I&Os Vital Signs Date Time Temp Pulse Resp B/P (MAP) Pulse Ox O2 Delivery O2 Flow Rate FiO2 02/27/20 14:00 98.6 73 18 104/75 (85) 95 Room Air 02/27/20 08:53 1.0 I&O- Last 24 Hours up to 6 AM 02/27/20 06:00 Intake Total 2990 ml Output Total 400 ml Balance 2590 ml Laboratory Data Labs 24H Laboratory Tests 2 02/27/20 05:25: Immature Granulocyte % (Auto) 0.5, Neutrophils (%) (Auto) 73.3H, Lymphocytes (%) (Auto) 7.5L, Monocytes (%) (Auto) 17.7H, Eosinophils (%) (Auto) 0.5, Basophils (%) (Auto) 0.5, Neutrophils # (Auto) 4.8, Lymphocytes # (Auto) 0.5L, Monocytes # (Auto) 1.2H, Eosinophils # (Auto) 0.0, Basophils # (Auto) 0.0, Nucleated Red Blood Cells % (auto) 0.3H, Anion Gap 9, Glomerular Filtration Rate 40.1, Calcium Level 9.3, Magnesium Level 1.7L, Total Bilirubin 2.3H, Aspartate Amino Transf (AST/SGOT) 28, Alanine Aminotransferase (ALT/SGPT) 8L, Alkaline Phosphatase 241H, Total Protein 5.8L, Albumin 1.9L, Albumin/Globulin Ratio 0.5L 02/27/20 10:38: Nucleated Red Blood Cells % (auto) 0.0 02/27/20 11:30: Bedside Glucose (Misc Panel) 268H CBC/BMP Laboratory Tests 02/27/20 05:25 02/27/20 10:38 FSBS Laboratory Tests Test 02/27/20 11:30 Range/Units Bedside Glucose (Misc Panel) 268 83-110 MG/DL Discharge Medications Scheduled Acetaminophen (Acetaminophen) 500 Mg Tablet, 1,000 MG PO Q8H Aspirin (Children's Aspirin) 81 Mg Tab.chew, 81 MG PO BID To continue for 35 days Insulin Detemir (Levemir) 100 Unit/1 Ml Vial, 10 UNITS SC BID Insulin Human Lispro (Humalog) 100 Unit/1 Ml Vial, 0 UNITS SC AC Insulin Human Lispro (Humalog) 100 Unit/1 Ml Vial, 0 UNITS SC QHS Lactulose (Lactulose) 10 Gm/15 Ml Skylar, 30 ML PO TID, (Reported) Magnesium Hydroxide (Milk of Magnesia) 400 Mg/5 Ml Oral.susp, 30 ML PO DAILY Omeprazole (Omeprazole) 20 Mg Cap, 20 MG PO DAILY, (Reported) Polyethylene Glycol 3350 (Polyethylene Glycol 3350) 17 Gm Powd.pack, 1 PKT PO DAILY Spironolactone (Spironolactone) 25 Mg Tablet, 25 MG PO DAILY, (Reported) Torsemide (Torsemide) 20 Mg Tablet, 20 MG PO DAILY, (Reported) PT WAS ON FUROSEMIDE 20MG DAILY. CHANGED BY OLLA Indelsul TO TORSEMIDE Scheduled PRN Levalbuterol Hydrochloride (Xopenex Concentrate) 1.25 Mg/0.5 Ml Vial.neb, 0.63 MG INH Q2HP PRN for SOB/WHEEZING Tramadol HCl (Tramadol HCl) 50 Mg Tablet, 50 MG PO Q4HP PRN for MODERATE PAIN (PS 5-7) Allergies Coded Allergies: No Known Drug Allergies (Verified Allergy, Unknown, 02/25/20) meperidine (Verified Adverse Reaction, Mild, N/V, 02/25/20) PREMA DEL VALLE DO Feb 27, 2020 22:10
--- NOTE | 2020-03-02 09:41 | ECHO ---
DATE OF PROCEDURE: 02/26/2020 Age: 84 Gender: Female REFERRING PHYSICIAN: Milton Gilliland DO PATIENT LOCATION: Room 5144 REASON FOR STUDY: Heart murmur, preop. 2D MEASUREMENTS: IVS 1.7 cm LV 3.0 cm LVPW 1.4 cm LA 2.7 cm Aorta 3.2 cm DOPPLER MEASUREMENT Peak velocity across the aortic valve 2.7 msec Peak velocity across the LVOT 1.6 msec Mitral E 0.83 Mitral A 1.4 with a ratio of 0.6 2D COMMENTS: 1. Normal left ventricular size with moderately increased left ventricular wall thickness. Left ventricular systolic function is normal, estimated at 55% to 60%. 2. Normal left atrium. Normal right atrium and right ventricle. 3. The atrial septum appeared to be normal without evidence of defect or shunt. 4. Normal aortic root. 5. A small pericardial effusion was noted, no evidence of cardiac tamponade. 6. Mildly to moderately calcified aortic valve with decreased leaflet excursion. Mildly calcified mitral annulus with normal anterior mitral valve leaflet motion. Normal tricuspid valve. The pulmonic valve also appeared to be normal. The proximal pulmonary artery branches were not well visualized. 7. The inferior vena cava was normal in size, central venous pressure is most likely normal. Doppler detects mild aortic regurgitation. Abnormal relaxation pattern was noted across the mitral valve leaflets, as well as the mitral valve annulus consistent with features of grade 1 left ventricular diastolic dysfunction. IMPRESSION: 1. Normal global left ventricular systolic function with probably moderate concentric left ventricular hypertrophy. There are some features of left ventricular diastolic dysfunction manifested by abnormal relaxation, grade 1. 2. Aortic valve sclerosis with [id number] aortic stenosis and mild aortic regurgitation. 3. Isolated mitral annulus calcification. 4. A small pericardial effusion was noted. No evidence of cardiac tamponade. The above findings were discussed with Dr. Xiao prior to the patients surgery. MAAME
== END 2020-02-27 15:45 | DRG 522 ==
LOC: M MS5PR 18:05 → M RR INP 02-26 18:49 → M MS5PR 02-26 19:54
PROVIDERS: ADMIT Internal Medicine; ATTEND Internal Medicine
PROC: 0W993ZZ Drainage of Right Pleural Cavity, Percutaneous Approach (ICD-10-PCS; 2020-02-26)
PROC: 0SRR0J9 Replacement of Right Hip Joint, Femoral Surface with Synthetic Substitute, Cemented, Open Approach (ICD-10-PCS; principal; 2020-02-26 13:30)
DX: S72.001A Fracture of unspecified part of neck of right femur, initial encounter for closed fracture (principal); E11.9 Type 2 diabetes mellitus without complications; I10 Essential (primary) hypertension; K74.60 Unspecified cirrhosis of liver; J98.4 Other disorders of lung; Z95.0 Presence of cardiac pacemaker; E78.5 Hyperlipidemia, unspecified; K21.9 Gastro-esophageal reflux disease without esophagitis; Z79.82 Long term (current) use of aspirin; Z79.899 Other long term (current) drug therapy; Z88.8 Allergy status to other drugs, medicaments and biological substances; Z79.4 Long term (current) use of insulin; J45.909 Unspecified asthma, uncomplicated; I25.10 Atherosclerotic heart disease of native coronary artery without angina pectoris; I27.20 Pulmonary hypertension, unspecified; W18.30XA Fall on same level, unspecified, initial encounter; Y92.009 Unspecified place in unspecified non-institutional (private) residence as the place of occurrence of the external cause

== ENCOUNTER 2020-02-27 13:28 | Inpatient (IN) | payer MEDICARE ==
[~2020-02-27] VITALS: Ht 152.4 cm; Wt 66.5 kg
[~2020-02-27 13:28] MED LIST changes: +ASPI81TA26 PO; +INSULADS INJ; +SPIR-10 PO; +TORS20TA2 PO
[2020-02-27] MEDS ORDERED: TRAM50TA2 PO (14:29)
[2020-02-27] MEDS ORDERED: ASPI81CH8 PO (14:29)
[2020-02-27] MEDS ORDERED: ACET-683 PO (14:29)
[2020-02-27] MEDS ORDERED: INSUDET SC (14:29)
[2020-02-27] MEDS ORDERED: PEG1POW PO (14:29)
[2020-02-27] MEDS ORDERED: INSUHUMDS SC ×2 (14:29)
[2020-02-27] MEDS ORDERED: LEVA12INH INH (14:29)
[2020-02-27] MEDS ORDERED: MOM30SS2 PO (14:29)
[2020-02-27 15:55] VITALS: BP 105/55
[2020-02-27 17:30] LABS: BASO % 0.2 % (0.0-1.0); EOS # 0.1 10^3/uL (0.0-0.5); EOS % 1.2 % (0.0-3.0); HEMATOCRIT 25.4 % (36.0-47.0); HEMOGLOBIN 8.2 g/dl (12.0-15.5); LYMPH # 0.7 10^3/uL (1.5-5.0); LYMPH % 7.5 % (24.0-44.0); MEAN CORPUSCULAR HEMOGLOBIN 34.2 pg (27.0-33.0); MEAN CORPUSCULAR HGB CONC 32.3 g/dl (32.0-36.5); MEAN CORPUSCULAR VOLUME 105.8 fl (80.0-96.0); MONO # 1.8 10^3/uL (0.0-0.8); MONO % 20.3 % (0.0-5.0); NEUTROPHILS # 6.1 10^3/uL (1.5-8.5); NEUTROPHILS % 70.1 % (36.0-66.0); PLATELET COUNT, AUTOMATED 183 10^3/uL (150-450); WHITE BLOOD COUNT 8.7 10^3/uL (4.0-10.0)
[2020-02-27] MEDS ORDERED: DEXTROSE 50% 50 ML SYRINGE IV PRN (17:45)
[2020-02-27] MEDS ORDERED: GLUCOSE 4GM CHEW TABLET PO PRN (17:45)
[2020-02-27] MEDS ORDERED: ONDANSETRON 4 MG TAB PO PRN (17:45)
[2020-02-27] MEDS ORDERED: LEVALBUTEROL HFA 45MCG/ACT 15 GM INHALER INH PRN (17:45)
[2020-02-27] MEDS ORDERED: GLUCAGON INJ 1MG VIAL SC PRN (17:45)
--- NOTE | 2020-02-27 18:51 | HPEPDOC ---
Radial Drill Operator Note DATE OF ADMISSION: 02.27.2020 DATE OF SERVICE: 02.27.2020 TIME OF ADMISSION: Please refer to physician's admission order. SOURCE OF ADMISSION INFORMATION: Medical Records and Patient ADMITTING DIAGNOSES: S/P R Hip Fracture with cemented hemiarthroplasty 02.26.2020 R Pleural Effusion with cardiodextrorotation unable to undergo thoracentesis with episodic hypoxia Chronic underexpansion right lung s/p thoracentesis 2018 Chronic liver disease with encephalopathy IDDM2 GERD HTN Aortic Stenosis Murmur CHIEF COMPLAINT: Right hip pain, confusion. HISTORY OF PRESENT ILLNESS: Patient is a hypertensive, Diabetic 84 year old female with eliceo gstanding history of liver disease requiring chronic lactulose who apparently had completed a course of rehabilitation at [facility] after right tibia fracture and was discharged home 02.24.2020. However that evening she fell and had severe pain, returned to [place] and was transferred to [facility]. She was found to have pleural effusion, not felt stable for thoracentesis, Echo demonstrated moderate Aortic Stenosis but no contraindication to surgery. She underwent right cemented hemiarthroplasty under spinal anesthesia 02.26.2020 and is now WBAT to begin comprehensive rehabilitation. ASA BID and LAITH hose recommended for 35 days (04/01/2020). Some hypotension and drop in H/H noted postoperatively, was felt to be dehydrated, may need adjustment in antihypertensive medications, possible transfusion if HB drops <7. REVIEW OF SYSTEMS: The following is a completed review of systems and has been reviewed. Review of systems otherwise unremarkable. PAIN: right hip pain EYES: No recent vision changes. EARS, NOSE, & THROAT: No throat pain, or dysphagia, or rhinorrhea. CARDIOVASCULAR: Denies chest pain or palpitations. PULMONARY: admits shortness of breath. GASTROINTESTINAL: Denies constipation/diarrhea. MUSCULOSKELETAL: hip pain, s/p tibial fracture NEUROLOGICAL:.AMS chronic encephalopathy from liver disease HEMATOLOGICAL: Anemic SKIN: .Healing right hip incision PSYCHIATRIC: cognitive processing issues All other review of systems found to be negative. PAST MEDICAl HISTORY: Liver disease (reported Cirrhosis) Pacemaker HTN IDDM2 Murmur (since childhood) Asthma PAST SURGICAL HISTORY: Hysterectomy Appendectomy Cholecystectomy Tonsillectomy S/P pacemaker Allergies: Multiple.See below FAMILY HISTORY: 83, positive for DM SOCIAL HISTORY: remote former Smoker, no EtOH, lives in a [facility] step [facility] 2 story home, resides on 1st floor with assistance and support of her sister who is 18 years her vj. DIET: Low CHO regular PHYSICAL EXAMINATION: VITAL SIGNS: Please see below. GENERAL: Pleasant and cooperative. Sleepy, oriented to self and place. Able to follow 1 step commands HEENT: PERRL. Extraocular movements intact. Clear conjunctiva, no adenopathy or thyromegaly. Full cervical range of motion without tenderness or spasm. CARDIOVASCULAR: Regular rate and rhythm. Holosystolic machine murmur bilateral anterior chest szymanski. Palpable pacemaker LUNGS: Clear to auscultation bilaterally. Diminished breath sounds bilateral bases. No wheezes. No rhonchi. ABDOMEN: Soft, nontender, mildly distended. Positive bowel sounds.no organomegaly. NEUROLOGICAL: Cranial nerves II through XII intact. Sensation intact all 4 extremities. Tone wnl. EXTREMITIES: Full bilateral forward flexion, no tenderness about shoulder girdles. LAITH in place, healing anterior foreleg abrasions, 5 /5 bilateral hydrochloric acid operator, elbow flexion, unable to fully test knee extension, approximately 4/4 foot dorsiflexion, plantar flexion. SKIN: Healing right lateral incision bulky dressing, dry. Otherwise intact. LABORATORY DATA: Please see below. IMAGING: Imaging documentation personally reviewed by record. FUNCTIONAL STATUS: Premorbid: Assistance from sister, able to ambulate independently, full baseline unclear. Premorbid: Independent with all activities of daily life as well as mobility. On Admission: -Total assistance for lower body dressing, shower transfers, stairs. -Moderate to maximal assistance for bathing, upper body dressing, bed chair and wheelchair transfers, toilet transfers, ambulation. - Moderate to minimal assistance for grooming. -Moderate assistance for memory and problem solving. GOALS: regain functional capabilities at time of DC from most recent rehab stay ASSESSMENT: 84 year-old hypertensive diabetic female with past medical history of chronic liver disease who presents status post cemented hemiarthroplasty for Right hip fracture 02.26.2020. Post operatively has had hypotension, anemia, altered mental status, however is clearing and would benefit from rehabilitation interventions to regain optimal functional independence. PLAN: 1. Rehab- PT/OT advance gait and ADls, strengthen/stretch/maintain ROM all 4 limbs. We'll continue to work on timing pain medication with therapy interventions to optimize possible capacity to participate. 2. Neuro- Continue Laculose for chronic metabolic encephalopathy 3. Ortho- THR hip precautions, LAITH, ASA 4. Cardiac- Longstanding Murmur, s/p pacemaker 2007 Dr. Ravi, Dr. Watts for bradycardia, stable cardiac function Anemia H/H 8.3/25.7 on d/c -HTN running low 5. Resp pleural effusion with hx underinflated lung from prior thoracentesis 2018 incentive spirometry, monitor for need of oxygen supplementation, RT, possible infection 6. Endo- hx of DM, stable on SSI 7. - initiate usual bladder protocol 8. GI ppx- continue omeprazole, continue Lactulose, Torsemide, Spironolactone, monitor. 9. DVT prophylaxis ASA, LAITH, per ortho POST ADMISSION PHYSICIAN EVALUATION: Medical and functional status: Description of medical status, medical assessment : As above. Rehabilitation diagnosis and current and prior cold morbid medical conditions as above. Risk of complications and plans to mitigate them as above. Description of functional status current status is as above. Prior status as above. Status compared to preadmission: There are no clinically significant differences between the patient's current status and the information described on the pr eadmission screening document. Treatment plan anticipated: Treatment plan is as described above. Required disciplines including physical therapy, occupational therapy, others as noted above]. Intensity of services: 3 hours a day, 6-7 days a week. Special considerations: There are no specific special or safety considerations that would likely preclude immediate implementation of an intensive rehab ilitation program or subsequently influence the plan of care. ATTESTATION: Considering all the information above, it is my best judgment that this patient requires intensive rehabilitation therapy as described above and an inpatient hospital environment due to the complexity of nursing, medical, and rehabilitation needs required by the patient. Furthermore, this patient can reasonably be expected to participate in an benefit from an inpatient rehabilitation stay with an interdisciplinary team approach to the delivery of rehabilitation care under the direction and supervision of rehabilitation physician. PROGNOSIS: Excellent. ESTIMATED LENGTH OF STAY:7-10 days. PROJECTED DISCHARGE DESTINATION: Home with family support and any durable medical equipment required to increase functional safety and mobility. TIME SPENT COUNSELING AND COORDINATING INITIAL CARE: Greater than 60 minutes. This document is generated using speech recognition software which may result in grammatical, typographical and individual word errors. Vital Signs Vital Sign - Last 24 Hours 02/27/20 15:55 Temp 97.9 Pulse 72 Resp 20 B/P (MAP) 105/55 (72) Pulse Ox 96 O2 Delivery Room Air Laboratory Data CBC/BMP Laboratory Tests 02/27/20 16:52 Labs 24H Laboratory Tests 2 02/27/20 16:29: Bedside Glucose (Misc Panel) 270H 02/27/20 16:52: Immature Granulocyte % (Auto) 0.7, Neutrophils (%) (Auto) 70.1H, Lymphocytes (%) (Auto) 7.5L, Monocytes (%) (Auto) 20.3H, Eosinophils (%) (Auto) 1.2, Basophils (%) (Auto) 0.2, Neutrophils # (Auto) 6.1, Lymphocytes # (Auto) 0.7L, Monocytes # (Auto) 1.8H, Eosinophils # (Auto) 0.1, Basophils # (Auto) 0.0, Nucleated Red Blood Cells % (auto) 0.0 FSBS Laboratory Tests Test 02/27/20 16:29 Range/Units Bedside Glucose (Misc Panel) 270 83-110 MG/DL Home Medications Scheduled Acetaminophen (Acetaminophen) 500 Mg Tablet, 1,000 MG PO Q8H Aspirin (Children's Aspirin) 81 Mg Tab.chew, 81 MG PO BID To continue for 35 days Insulin Detemir (Levemir) 100 Unit/1 Ml Vial, 10 UNITS SC BID Insulin Human Lispro (Humalog) 100 Unit/1 Ml Vial, 0 UNITS SC AC Insulin Human Lispro (Humalog) 100 Unit/1 Ml Vial, 0 UNITS SC QHS Lactulose (Lactulose) 10 Gm/15 Ml Skylar, 30 ML PO TID, (Reported) Magnesium Hydroxide (Milk of Magnesia) 400 Mg/5 Ml Oral.susp, 30 ML PO DAILY Omeprazole (Omeprazole) 20 Mg Cap, 20 MG PO DAILY, (Reported) Polyethylene Glycol 3350 (Polyethylene Glycol 3350) 17 Gm Powd.pack, 1 PKT PO DAILY Spironolactone (Spironolactone) 25 Mg Tablet, 25 MG PO DAILY, (Reported) Torsemide (Torsemide) 20 Mg Tablet, 20 MG PO DAILY, (Reported) PT WAS ON FUROSEMIDE 20MG DAILY. CHANGED BY GIULIANO SANFORD TO TORSEMIDE Scheduled PRN Levalbuterol Hydrochloride (Xopenex Concentrate) 1.25 Mg/0.5 Ml Vial.neb, 0.63 MG INH Q2HP PRN for SOB/WHEEZING Tramadol HCl (Tramadol HCl) 50 Mg Tablet, 50 MG PO Q4HP PRN for MODERATE PAIN (PS 5-7) Allergies Coded Allergies: No Known Drug Allergies (Verified Allergy, Unknown, 02/25/20) meperidine (Verified Adverse Reaction, Mild, N/V, 02/25/20) A-FIB/CHADSVASC A-FIB History Current/History of A-Fib/PAF?: No Current PO Anticoag Therapy: No Age/Risk Factor Scoring CHADSVASC: CHADSVASC Response (Comments) Value Age Risk Factor Age >/= 75 years old 2 Gender Risk Factor Female 1 Hx of CHF No 0 Hx of HTN Yes 1 Hx of Stroke/TIA/or VTE No 0 Hx of Diabetes Yes 1 Hx of Vascular Disease No 0 Total 5 Treatment Other anticoagulant ordered: GALEN JIMENEZ MD Feb 27, 2020 18:51
[2020-02-27] MEDS: HumaLOG INSULIN (NovoLOG) PER UNIT SC SCH ×2 (19:49→21:43)
[2020-02-27 20:30] VITALS: BP 120/60
[2020-02-27] MEDS: ASPIRIN 81 MG CHEW TABLET PO SCH (21:29)
[2020-02-27] MEDS: LEVEMIR (INSULIN DETEMIR) 1 UNITS/0.01ML SC SCH (21:29)
[2020-02-28] MEDS: ACETAMINOPHEN TAB 650MG DOSE (2X325MG) PO PRN ×2 (02:40→21:50)
[2020-02-28 06:34] VITALS: BP 113/52
[2020-02-28 07:45] LABS: BASO % 0.3 % (0.0-1.0); EOS # 0.2 10^3/uL (0.0-0.5); EOS % 1.6 % (0.0-3.0); HEMATOCRIT 24.2 % (36.0-47.0); HEMOGLOBIN 7.9 g/dl (12.0-15.5); LYMPH # 0.6 10^3/uL (1.5-5.0); LYMPH % 6.3 % (24.0-44.0); MEAN CORPUSCULAR HEMOGLOBIN 34.3 pg (27.0-33.0); MEAN CORPUSCULAR HGB CONC 32.6 g/dl (32.0-36.5); MEAN CORPUSCULAR VOLUME 105.2 fl (80.0-96.0); MONO # 1.6 10^3/uL (0.0-0.8); MONO % 17.3 % (0.0-5.0); NEUTROPHILS # 6.9 10^3/uL (1.5-8.5); NEUTROPHILS % 73.6 % (36.0-66.0); PLATELET COUNT, AUTOMATED 192 10^3/uL (150-450); WHITE BLOOD COUNT 9.4 10^3/uL (4.0-10.0)
[2020-02-28 08:10] LABS: ALBUMIN 1.9 GM/DL (3.2-5.2); ALT/SGPT < 6 U/L (12-78); BILIRUBIN,TOTAL 1.9 MG/DL (0.2-1.0); BLOOD UREA NITROGEN 27 MG/DL (7-18); CALCIUM LEVEL 9.5 MG/DL (8.8-10.2); CARBON DIOXIDE LEVEL 27 MEQ/L (21-32); CHLORIDE LEVEL 96 MEQ/L (98-107); CREATININE FOR GFR 0.98 MG/DL (0.55-1.30); GLOMERULAR FILTRATION RATE 57.6 (>32); GLUCOSE, FASTING 191 MG/DL (70-100); POTASSIUM SERUM 3.9 MEQ/L (3.5-5.1); SODIUM LEVEL 130 MEQ/L (136-145); TOTAL PROTEIN 5.6 GM/DL (6.4-8.2)
[2020-02-28] MEDS: HumaLOG INSULIN (NovoLOG) PER UNIT SC SCH ×4 (08:43→21:49)
[2020-02-28] MEDS: LEVEMIR (INSULIN DETEMIR) 1 UNITS/0.01ML SC SCH ×2 (08:43→21:49)
[2020-02-28] MEDS: SPIRONOLACTONE 12.5MG PER 1/2 TABLET PO SCH (08:44)
[2020-02-28] MEDS: OMEPRAZOLE 20 MG CAP PO SCH (08:44)
[2020-02-28] MEDS: ASPIRIN 81 MG CHEW TABLET PO SCH ×2 (08:44→21:50)
[2020-02-28] MEDS: FIBER-CON 625 MG TAB PO SCH (08:44)
[2020-02-28] MEDS: LACTULOSE 20 GM/30 ML SYRUP UD PO SCH (08:44)
[2020-02-28] MEDS: traMADol 50 MG TAB PO PRN (08:59)
--- NOTE | 2020-02-28 09:57 | IPNPDOC ---
PM&R Progress Note DATE OF SERVICE: Feb 28, 2020 Sweater Designer Progress Note DATE OF ADMISSION: Feb 27, 2020 at 15:45 INPATIENT REHABILITATION ADMISSION DAY: # 2 CHIEF COMPLAINT: Right hip pain, confusion. HISTORY OF PRESENT ILLNESS: Patient is a hypertensive, diabetic 84 year old female with longstanding history of liver disease requiring chronic lactulose who apparently had completed a course of rehabilitation at [facility] after right tibia fracture and was discharged home 02.24.2020. However that evening she fell and had severe pain, returned to [place] and was transferred to [facility]. She was found to have possible pleural effusion, not felt stable for thoracentesis, Echo demonstrated moderate Aortic Stenosis and rotation and shift of the heart to midline due to volume loss from chronic right lung entrapment from prior thoracentesis, but no contraindication to surgery. She underwent right cemented hemiarthroplasty under spinal anesthesia 02.26.2020 and is now WBAT to begin comprehensive rehabilitation. ASA BID and LAITH hose recommended for 35 days (04/01/2020). Some hypotension and drop in H/H noted postoperatively, was felt to be dehydrated, improved with IV fluid bolus prior to transfer, may need adjustment in antihypertensive medications, possible transfusion if HB drops <7. Hyponatremic this morning, HB holding steady, pain management adequate. REVIEW OF SYSTEMS: The following is a completed review of systems and has been reviewed. Review of systems otherwise unremarkable. PAIN: right hip pain EYES: No recent vision changes. EARS, NOSE, & THROAT: No throat pain, or dysphagia, or rhinorrhea. CARDIOVASCULAR: Denies chest pain or palpitations. PULMONARY: admits shortness of breath. GASTROINTESTINAL: Denies constipation/diarrhea. 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 PAST MEDICAL HISTORY: Liver disease (reported Cirrhosis) Pacemaker HTN IDDM2 Murmur (since childhood) Asthma PAST SURGICAL HISTORY: Hysterectomy Appendectomy Cholecystectomy Tonsillectomy S/P pacemaker Allergies: Multiple.See below SOCIAL HISTORY: remote former Smoker, no EtOH, lives in a [facility] 2 story home, resides on 1st floor with assistance and support of her sister who is 18 years her vj. PHYSICAL EXAMINATION: VITAL SIGNS: Please see below. GENERAL: Pleasant and cooperative. Sleepy, oriented to self and place. Able to follow 1 step commands HEENT: PERRL. Extraocular movements intact. Clear conjunctiva, no adenopathy or thyromegaly. Full cervical range of motion without tenderness or spasm. CARDIOVASCULAR: Regular rate and rhythm. Holosystolic machine murmur bilateral anterior chest szymanski. Palpable pacemaker LUNGS: Clear to auscultation bilaterally. Diminished breath sounds bilateral bases. No wheezes. No rhonchi. Old healed right lower diagonal flank incision. ABDOMEN: Soft, nontender, mildly distended. Positive bowel sounds.no organomegaly. NEUROLOGICAL: Cranial nerves II through XII intact. Sensation intact all 4 extremities. Tone wnl. EXTREMITIES: Full bilateral forward flexion, no tenderness about shoulder girdles. 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 SKIN: Healing right lateral incision dressing, dry, some surrounding erythema noted. LABORATORY DATA: Please see below. IMAGING: Imaging documentation personally reviewed by record. FUNCTIONAL STATUS: Premorbid: Assistance from sister, able to ambulate independently, full baseline unclear. -Total assistance for lower body dressing, shower transfers, stairs. -Moderate to maximal assistance for bathing, upper body dressing, bed chair and wheelchair transfers, toilet transfers, ambulation. - Moderate to minimal assistance for grooming. -Moderate assistance for memory and problem solving. GOALS: regain functional capabilities at time of DC from most recent rehab stay ASSESSMENT: 84 year-old hypertensive diabetic female with past medical history of chronic liver disease who presents status post cemented hemiarthroplasty for Right hip fracture 02.26.2020. Post operatively has had hypotension, anemia, altered mental status, however is clearing and would benefit from rehabilitation interventions to regain optimal functional independence. PLAN: 1. Rehab- PT/OT advance gait and ADls, strengthen/stretch/maintain ROM all 4 limbs. We'll continue to work on timing pain medication with therapy interventions to optimize possible capacity to participate while also being cautious of limited hepatic metabolic capacity. 2. Neuro- Continue Lactulose for chronic metabolic encephalopathy. WRAPPER SIZER orientation, cognitive processing 3. Ortho- THR hip precautions, LAITH, ASA 4. Cardiac- Shifted position of heart,Longstanding Murmur, s/p pacemaker 2008 Dr. Ravi, Dr. Watts for bradycardia, stable cardiac function Anemia H/H 8.3/25.7 on d/c today 7.9/24.2 -HTN by history, currently running low, but tolerating spironolactone 5. Resp pleural effusion with hx underinflated lung from prior thoracentesis 2018 incentive spirometry, monitor for need of oxygen supplementation, RT, possible infection 6. Endo- hx of DM, stable on SSI 7. - initiate usual bladder protocol 8. GI ppx- continue omeprazole, continue Lactulose, Spironolactone, monitor, hyponatremia, will replenish 9. DVT prophylaxis ASA, LAITH, per ortho PROGNOSIS: Good ESTIMATED LENGTH OF STAY:7-14 days. PROJECTED DISCHARGE DESTINATION: Home with family support and any durable medical equipment required to increase functional safety and mobility. TIME SPENT COUNSELING AND COORDINATING INITIAL CARE: 30 minutes. This document is generated using speech recognition software which may result in grammatical, typographical and individual word errors. Allergies Coded Allergies: No Known Drug Allergies (Verified Allergy, Unknown, 02/25/20) meperidine (Verified Adverse Reaction, Mild, N/V, 02/25/20) Vital Signs Vital Signs Date Time Temp Pulse Resp B/P (MAP) Pulse Ox O2 Delivery O2 Flow Rate FiO2 02/28/20 08:59 20 Room Air 02/28/20 06:34 98.0 70 113/52 (72) 98 Laboratory Data CBC/BMP Laboratory Tests 02/27/20 16:52 02/28/20 07:26 Labs 24H Laboratory Tests 2 02/27/20 16:29: Bedside Glucose (Misc Panel) 270H 02/27/20 16:52: Immature Granulocyte % (Auto) 0.7, Neutrophils (%) (Auto) 70.1H, Lymphocytes (%) (Auto) 7.5L, Monocytes (%) (Auto) 20.3H, Eosinophils (%) (Auto) 1.2, Basophils ( %) (Auto) 0.2, Neutrophils # (Auto) 6.1, Lymphocytes # (Auto) 0.7L, Monocytes # (Auto) 1.8H, Eosinophils # (Auto) 0.1, Basophils # (Auto) 0.0, Nucleated Red Blood Cells % (auto) 0.0 02/27/20 21:27: Bedside Glucose (Misc Panel) 317H 02/28/20 06:26: Bedside Glucose (Misc Panel) 150H 02/28/20 07:26: Immature Granulocyte % (Auto) 0.9, Neutrophils (%) (Auto) 73.6H, Lymphocytes (%) (Auto) 6.3L, Monocytes (%) (Auto) 17.3H, Eosinophils (%) (Auto) 1.6, Basophils (%) (Auto) 0.3, Neutrophils # (Auto) 6.9, Lymphocytes # (Auto) 0.6L, Monocytes # (Auto) 1.6H, Eosinophils # (Auto) 0.2, Basophils # (Auto) 0.0, Nucleated Red Blood Cells % (auto) 0.0, Anion Gap 7L, Glomerular Filtration Rate 57.6, Calcium Level 9.5, Total Bilirubin 1.9H, Aspartate Amino Transf (AST/SGOT) 33, Alanine Aminotransferase (ALT/SGPT) < 6L, Alkaline Phosphatase 261H, Ammonia < 10, Total Protein 5.6L, Albumin 1.9L, Albumin/Globulin Ratio 0.5L Current Medications Current Medications Current Medications Medications (Trade) Dose Ordered Sig/Paige Route PRN Reason Start Time Stop Time Status Last Admin Dose Admin Acetaminophen (Tylenol Tab) 650 mg Q6HP PRN PO PAIN / FEVER 02/27/20 17:45 02/28/20 02:40 Aspirin (Aspirin Chewable) 81 mg BID PO 02/27/20 21:00 02/28/20 08:44 Calcium Polycarbophil (Fiber Con) 1 ea DAILY PO 02/28/20 09:00 02/28/20 08:44 Dextrose (Dextrose 50%) 25 ml ASDIRECTED PRN IV SEE LABEL COMMENTS 02/27/20 17:45 Glucagon (Glucagon) 1 mg ASDIRECTED PRN SC SEE LABEL COMMENTS 02/27/20 17:45 Glucose (Glucose) 16 GM ASDIRECTED PRN PO SEE LABEL COMMENTS 02/27/20 17:45 Home Med (Med Rec Complete!) ASDIRECTED XX 02/27/20 18:00 02/27/20 18:00 DC Insulin Detemir (Levemir Insulin) 10 units BID SC 02/27/20 21:00 02/28/20 08:43 Insulin Human Lispro (HumaLOG INSULIN) See Protocol Table AC SC 02/27/20 17:30 02/28/20 08:43 Insulin Human Lispro (HumaLOG INSULIN) See Protocol Table QHS SC 02/27/20 21:00 02/27/20 21:43 Lactulose (Cephulac) 15 ml DAILY PO 02/28/20 09:00 02/28/20 08:44 Levalbuterol HCl (Xopenex Hfa) 2 puff Q4HP PRN INH SHORTNESS OF BREATH 02/27/20 17:45 Omeprazole (PriLOSEC) 20 mg DAILY PO 02/28/20 09:00 02/28/20 08:44 Ondansetron HCl (Zofran) 4 mg Q8HP PRN PO NAUSEA OR VOMITING 02/27/20 17:45 Spironolactone (Aldactone) 12.5 mg DAILY PO 02/28/20 09:00 02/28/20 08:44 Tramadol HCl (Ultram) 50 mg Q6HP PRN PO MODERATE PAIN (PS 5-7) 02/27/20 17:45 02/28/20 08:59 GALEN HILLMAN MD Feb 28, 2020 09:57
[2020-02-28] MEDS: SODIUM CHLORIDE 1 GM TAB PO SCH ×2 (12:43→21:50)
[2020-02-28 14:00] VITALS: BP 147/77
[2020-02-28 14:37] LABS: HEMATOCRIT 23.9 % (36.0-47.0); HEMOGLOBIN 7.6 g/dl (12.0-15.5); MEAN CORPUSCULAR HEMOGLOBIN 33.6 pg (27.0-33.0); MEAN CORPUSCULAR HGB CONC 31.8 g/dl (32.0-36.5); MEAN CORPUSCULAR VOLUME 105.8 fl (80.0-96.0); PLATELET COUNT, AUTOMATED 174 10^3/uL (150-450); RED BLOOD COUNT 2.26 10^6/uL (4.00-5.40); WHITE BLOOD COUNT 8.6 10^3/uL (4.0-10.0)
[2020-02-28 15:07] LABS: PERCENT SATURATION 18.5 % (13.2-45.0)
[2020-02-28 20:00] VITALS: BP 132/71
--- NOTE | 2020-02-28 20:05 | CR.PDOC ---
General Date of Consultation: Feb 28, 2020 Consultation REASON FOR CONSULTATION/CHIEF COMPLAINT: Medical comanagement HISTORY OF PRESENT ILLNESS: Mrs. Cabello is an 84 year old female with cirrhosis, DM2, and bradycardia s/p pacemaker transferred here from [facility] transferred here for a mechanical fall with subsequent right hip fracture. Patient had completed rehabilitation in [facility] and was discharged on 02/23. On the same day of discharge, she had mechanical fall on her right side and had severe pain. Patient went to [place] for further evaluation and was transferred here for orthopedic evaluation. During pre-op workup, it was noted that she had right pleural effusion. Discussed with pulmonary about case. In 2018, patient had a right thoracentesis and right lung has not re-expanded afterwards. 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 The pleural effusion in the CXR is actually the heart shifted to the right, and the effusion is mild. Patient went to surgery on 02/26/2020. Aspirin 81mg BID for 35 days for DVT ppx. The following day, she was discharged to ARU. This afternoon, she was seen at ARU. She tells that she is feeling better today compared to yesterday. Denies any fever or chills, chest pain, abdominal pain, diarrhea, or dysuria. She tells me she thinks she doesn't have shortness of breath. ALLERGIES: Please see below. HOME MEDICATIONS: Please see below. PAST MEDICAL HISTORY: 1. Right femoral neck fracture 2/2 fall 2. Cirrhosis 3. Bradycardia s/p pacemaker placement 4. HTN 5. Dyslipidemia 6. Diabetes Mellitus type 2 7. GERD PAST SURGICAL HISTORY: 1. Hysterectomy 2. Appendectomy 3. Cholecystectomy 4. Hemiarthroplasty of right hip 2 FAMILY HISTORY: , positive for diabetes mellitus SOCIAL HISTORY: Tobacco use: Former smoker ETOH: Denies REVIEW OF SYSTEMS: CONSTITUTIONAL: Denies any fever or chills. Denies lightheadedness or dizziness. ENT: Denies sore throat. RESPIRATORY: Denies worsening shortness of breath. Denies cough. CARDIOVASCULAR: Denies chest pain. GASTROINTESTINAL: Denies abdominal pain. Denies diarrhea. GENITOURINARY: Denies dysuria. CUTANEOUS: Denies rashes. MUSCULOSKELETAL: Right hip pain HEMATOLOGICAL: Denies easy bruisability NEUROLOGICAL: Denies paresthesias. PHYSICAL EXAMINATION: VITAL SIGNS: Please see below. GENERAL: Comfortable, in no apparent distress. HEENT: Head normocephalic/atraumatic, EOMI, sclera clear. NECK: Supple RESPIRATORY: Diminished breath sounds on the right, otherwise clear CARDIOVASCULAR: Heart sounds are more obvious on the right, otherwise regular rate and rhythm ABDOMEN: Soft, nontender, no guarding or rebound tenderness. Normal bowel sounds. MUSCLE SKELETAL: Mild pitting edema NEUROLOGICAL: CN 312 grossly intact PSYCHOLOGICAL: Normal mood and affect LABORATORY DATA: Please see below. ASSESSMENT/PLAN: 1. Right femoral neck fracture 2/2 mechanical fall -Went to the OR on 02/26/2020 for a right hemiarthroplasty of the hip -Now in ARU for rehabilitation 2. Right entrapped lung -Thoracentesis in 2018 did not re-expand lung -Finding are chronic -Saturating well at room air 3. Cirrhosis -Continue with torsemide, spironolactone, and lactulose 4. DM -Continue insulin sliding scale and levemir 5. Pacemaker -Placed for recurrent syncopal episode due to bradycardia. [place] [address] Watts 6. GERD -Continue omeprazole 7. DVT ppx -Aspirin 81 mg twice a day for 35 days Vital Signs/I&O Vital Signs Date Time Temp Pulse Resp B/P (MAP) Pulse Ox O2 Delivery O2 Flow Rate FiO2 02/28/20 14:00 97.2 74 18 147/77 (100) 98 Room Air I&O- Last 24 Hours up to 6 AM 02/28/20 06:00 Intake Total 640 ml Output Total 225 ml Balance 415 ml Laboratory Data Labs 24H Laboratory Tests 2 02/27/20 16:29: Bedside Glucose (Misc Panel) 270H 02/27/20 16:52: Immature Granulocyte % (Auto) 0.7, Neutrophils (%) (Auto) 70.1H, Lymphocytes (%) (Auto) 7.5L, Monocytes (%) (Auto) 20.3H, Eosinophils (%) (Auto) 1.2, Basophils (%) (Auto) 0.2, Neutrophils # (Auto) 6.1, Lymphocytes # (Auto) 0.7L, Monocytes # (Auto) 1.8H, Eosinophils # (Auto) 0.1, Basophils # (Auto) 0.0, Nucleated Red Blood Cells % (auto) 0.0 02/27/20 21:27: Bedside Glucose (Misc Panel) 317H 02/28/20 06:26: Bedside Glucose (Misc Panel) 150H 02/28/20 07:26: Immature Granulocyte % (Auto) 0.9, Neutrophils (%) (Auto) 73.6H, Lymphocytes (%) (Auto) 6.3L, Monocytes (%) (Auto) 17.3H, Eosinophils (%) (Auto) 1.6, Basophils (%) (Auto) 0.3, Neutrophils # (Auto) 6.9, Lymphocytes # (Auto) 0.6L, Monocytes # (Auto) 1.6H, Eosinophils # (Auto) 0.2, Basophils # (Auto) 0.0, Nucleated Red Blood Cells % (auto) 0.0, Anion Gap 7L, Glomerular Filtration Rate 57.6, Calcium Level 9.5, Total Bilirubin 1.9H, Aspartate Amino Transf (AST/SGOT) 33, Alanine Aminotransferase (ALT/SGPT) < 6L, Alkaline Phosphatase 261H, Ammonia < 10, Total Protein 5.6L, Albumin 1.9L, Albumin/Globulin Ratio 0.5L 02/28/20 11:49: Bedside Glucose (Misc Panel) 164H 02/28/20 14:25: Nucleated Red Blood Cells % (auto) 0.0, Reticulocyte # (auto) 175.8H, Percent Reticulocyte Count 7.8H, Reticulocyte Hemoglobin Equivalent 39.2H, Iron Level 36L, Total Iron Binding Capacity 195L, Transferrin % Saturation 18.5, Ferritin 152, Lactate Dehydrogenase 202 CBC/BMP Laboratory Tests 02/27/20 16:52 02/28/20 07:26 02/28/20 14:25 Allergies Coded Allergies: No Known Drug Allergies (Verified Allergy, Unknown, 02/25/20) meperidine (Verified Adverse Reaction, Mild, N/V, 02/25/20) Home Medications Scheduled Acetaminophen (Acetaminophen) 500 Mg Tablet, 1,000 MG PO Q8H for 30 Days, #30 Aspirin (Children's Aspirin) 81 Mg Tab.chew, 81 MG PO BID for 35 Days, #70 To continue for 35 days Insulin Detemir (Levemir) 100 Unit/1 Ml Vial, 10 UNITS SC BID for 7 Days, #1 Insulin Human Lispro (Humalog) 100 Unit/1 Ml Vial, 0 UNITS SC AC for 14 Days, #10 Insulin Human Lispro (Humalog) 100 Unit/1 Ml Vial, 0 UNITS SC QHS for 10 Days, #10 Lactulose (Lactulose) 10 Gm/15 Ml Skylar, 30 ML PO TID, (Reported) Magnesium Hydroxide (Milk of Magnesia) 400 Mg/5 Ml Oral.susp, 30 ML PO DAILY for 10 Days, #10 Omeprazole (Omeprazole) 20 Mg Cap, 20 MG PO DAILY, (Reported) Polyethylene Glycol 3350 (Polyethylene Glycol 3350) 17 Gm Powd.pack, 1 PKT PO DAILY for 10 Days, #10 Spironolactone (Spironolactone) 25 Mg Tablet, 25 MG PO DAILY, (Reported) Torsemide (Torsemide) 20 Mg Tablet, 20 MG PO DAILY, (Reported) PT WAS ON FUROSEMIDE 20MG DAILY. CHANGED BY GIULIANO SANFORD TO TORSEMIDE Scheduled PRN Levalbuterol Hydrochloride (Xopenex Concentrate) 1.25 Mg/0.5 Ml Vial.neb, 0.63 MG INH Q2HP PRN for SOB/WHEEZING for 10 Days, #1 Tramadol HCl (Tramadol HCl) 50 Mg Tablet, 50 MG PO Q4HP PRN for MODERATE PAIN (PS 5-7) for 7 Days, #7 PREMA DEL VALLE DO Feb 28, 2020 18:25
[2020-02-29 05:56] VITALS: BP 111/57
[2020-02-29 08:35] LABS: HEMATOCRIT 23.9 % (36.0-47.0); MEAN CORPUSCULAR HEMOGLOBIN 35.9 pg (27.0-33.0); MEAN CORPUSCULAR HGB CONC 33.5 g/dl (32.0-36.5); MEAN CORPUSCULAR VOLUME 107.2 fl (80.0-96.0); PLATELET COUNT, AUTOMATED 204 10^3/uL (150-450); RED BLOOD COUNT 2.23 10^6/uL (4.00-5.40)
[2020-02-29 08:58] LABS: BLOOD UREA NITROGEN 27 MG/DL (7-18); CALCIUM LEVEL 10.1 MG/DL (8.8-10.2); CARBON DIOXIDE LEVEL 28 MEQ/L (21-32); CHLORIDE LEVEL 96 MEQ/L (98-107); CREATININE FOR GFR 0.88 MG/DL (0.55-1.30); GLOMERULAR FILTRATION RATE > 60.0 (>32); GLUCOSE, FASTING 220 MG/DL (70-100); POTASSIUM SERUM 4.6 MEQ/L (3.5-5.1); SODIUM LEVEL 129 MEQ/L (136-145)
[2020-02-29] MEDS: SPIRONOLACTONE 12.5MG PER 1/2 TABLET PO SCH (09:15)
[2020-02-29] MEDS: ASPIRIN 81 MG CHEW TABLET PO SCH ×2 (09:16→21:13)
[2020-02-29] MEDS: SODIUM CHLORIDE 1 GM TAB PO SCH ×2 (09:16→21:12)
[2020-02-29] MEDS: TORSEMIDE 20 MG TAB PO SCH (09:16)
[2020-02-29] MEDS: OMEPRAZOLE 20 MG CAP PO SCH (09:16)
[2020-02-29] MEDS: FIBER-CON 625 MG TAB PO SCH (09:16)
[2020-02-29] MEDS: LEVEMIR (INSULIN DETEMIR) 1 UNITS/0.01ML SC SCH ×2 (09:18→21:14)
[2020-02-29] MEDS: LACTULOSE 20 GM/30 ML SYRUP UD PO SCH (09:18)
[2020-02-29] MEDS: traMADol 50 MG TAB PO PRN (09:18)
[2020-02-29] MEDS: HumaLOG INSULIN (NovoLOG) PER UNIT SC SCH ×4 (09:20→21:13)
[2020-02-29 14:00] VITALS: BP 109/56
[2020-02-29 20:00] VITALS: BP 113/61
[2020-03-01 06:00] VITALS: BP 134/63
[2020-03-01] MEDS: SPIRONOLACTONE 12.5MG PER 1/2 TABLET PO SCH (09:17)
[2020-03-01] MEDS: LACTULOSE 20 GM/30 ML SYRUP UD PO SCH (09:17)
[2020-03-01] MEDS: SODIUM CHLORIDE 1 GM TAB PO SCH ×2 (09:17→20:37)
[2020-03-01] MEDS: OMEPRAZOLE 20 MG CAP PO SCH (09:18)
[2020-03-01] MEDS: HumaLOG INSULIN (NovoLOG) PER UNIT SC SCH ×4 (09:18→20:36)
[2020-03-01] MEDS: ASPIRIN 81 MG CHEW TABLET PO SCH ×2 (09:18→20:37)
[2020-03-01] MEDS: FIBER-CON 625 MG TAB PO SCH (09:18)
[2020-03-01] MEDS: TORSEMIDE 20 MG TAB PO SCH (09:19)
[2020-03-01] MEDS: LEVEMIR (INSULIN DETEMIR) 1 UNITS/0.01ML SC SCH ×2 (09:19→20:37)
[2020-03-01 10:26] LABS: HEMATOCRIT 22.3 % (36.0-47.0); HEMOGLOBIN 7.1 g/dl (12.0-15.5); MEAN CORPUSCULAR HGB CONC 31.8 g/dl (32.0-36.5); MEAN CORPUSCULAR VOLUME 106.7 fl (80.0-96.0); PLATELET COUNT, AUTOMATED 204 10^3/uL (150-450); RED BLOOD COUNT 2.09 10^6/uL (4.00-5.40)
[2020-03-01 10:33] LABS: CALCIUM LEVEL 10.1 MG/DL (8.8-10.2); CREATININE FOR GFR 1.02 MG/DL (0.55-1.30); POTASSIUM SERUM 4.1 MEQ/L (3.5-5.1)
[2020-03-01 12:54] LABS: HEMATOCRIT 24.3 % (36.0-47.0); MEAN CORPUSCULAR HEMOGLOBIN 35.1 pg (27.0-33.0); MEAN CORPUSCULAR HGB CONC 32.9 g/dl (32.0-36.5); MEAN CORPUSCULAR VOLUME 106.6 fl (80.0-96.0); PLATELET COUNT, AUTOMATED 262 10^3/uL (150-450); RED BLOOD COUNT 2.28 10^6/uL (4.00-5.40); WHITE BLOOD COUNT 9.9 10^3/uL (4.0-10.0)
[2020-03-01 14:00] VITALS: BP 121/70
[2020-03-01 19:18] LABS: OSMOLALITY URINE 346 MOSM/KG (500-800)
[2020-03-01 19:26] LABS: SODIUM,RANDOM URINE 45 MEQ/L
[2020-03-01 20:00] VITALS: BP 118/58
[2020-03-02 06:00] VITALS: BP 123/62
[2020-03-02 07:07] LABS: HEMATOCRIT 22.5 % (36.0-47.0); HEMOGLOBIN 7.4 g/dl (12.0-15.5); MEAN CORPUSCULAR HEMOGLOBIN 34.4 pg (27.0-33.0); MEAN CORPUSCULAR HGB CONC 32.9 g/dl (32.0-36.5); MEAN CORPUSCULAR VOLUME 104.7 fl (80.0-96.0); PLATELET COUNT, AUTOMATED 214 10^3/uL (150-450); RED BLOOD COUNT 2.15 10^6/uL (4.00-5.40)
[2020-03-02 07:30] LABS: CALCIUM LEVEL 9.4 MG/DL (8.8-10.2); CREATININE FOR GFR 0.96 MG/DL (0.55-1.30); GLOMERULAR FILTRATION RATE 58.9 (>32); POTASSIUM SERUM 3.8 MEQ/L (3.5-5.1)
[2020-03-02] MEDS: LEVEMIR (INSULIN DETEMIR) 1 UNITS/0.01ML SC SCH ×2 (09:01→21:00)
[2020-03-02] MEDS: HumaLOG INSULIN (NovoLOG) PER UNIT SC SCH ×4 (09:01→21:08)
[2020-03-02] MEDS: SPIRONOLACTONE 12.5MG PER 1/2 TABLET PO SCH (09:01)
[2020-03-02] MEDS: FIBER-CON 625 MG TAB PO SCH (09:01)
[2020-03-02] MEDS: OMEPRAZOLE 20 MG CAP PO SCH ×2 (09:01→21:00)
[2020-03-02] MEDS: LACTULOSE 20 GM/30 ML SYRUP UD PO SCH (09:02)
[2020-03-02] MEDS: TORSEMIDE 20 MG TAB PO SCH (09:02)
[2020-03-02] MEDS: ASPIRIN 81 MG CHEW TABLET PO SCH (09:02)
[2020-03-02] MEDS: traMADol 50 MG TAB PO PRN (09:04)
[2020-03-02] MEDS: SUCRALFATE 1 GM TAB PO SCH ×2 (10:19→18:29)
[2020-03-02 10:47] LABS: HEMATOCRIT 25.8 % (36.0-47.0); HEMOGLOBIN 8.7 g/dl (12.0-15.5)
[2020-03-02] MEDS ORDERED: ACETAMINOPHEN TAB 650MG DOSE (2X325MG) PO PRN (11:15)
--- NOTE | 2020-03-02 11:17 | IPNPDOC ---
PM&R Progress Note DATE OF SERVICE: Mar 02, 2020 Territory Account Representative Progress Note Subjective: PAtient seen in therapy stating she does not feel more short of breath than usual or much weaker, but it limited by pain. She is interested in taking tramadol in the morning before therapy. She denies olga blood in her stool. REVIEW OF SYSTEMS: The following is a completed review of systems and has been reviewed. Review of systems otherwise unremarkable. PAIN: right hip pain EYES: No recent vision changes. EARS, NOSE, & THROAT: No throat pain, or dysphagia, or rhinorrhea. CARDIOVASCULAR: Denies chest pain or palpitations. PULMONARY: admits shortness of breath. GASTROINTESTINAL: Denies constipation/diarrhea. 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 PHYSICAL EXAMINATION: VITAL SIGNS: Please see below. GENERAL: Pleasant and cooperative. HEENT: PERRL. Extraocular movements intact. Clear conjunctiva, no adenopathy or thyromegaly. Full cervical range of motion without tenderness or spasm. CARDIOVASCULAR: Regular rate and rhythm. Holosystolic machine murmur bilateral anterior chest szymanski. Palpable pacemaker LUNGS: Clear to auscultation bilaterally. Diminished breath sounds bilateral bases. No wheezes. No rhonchi. Old healed right lower diagonal flank incision. ABDOMEN: Soft, nontender, mildly distended. Positive bowel sounds.no organomegaly. NEUROLOGICAL: Cranial nerves II through XII intact. Sensation intact all 4 extremities. Tone wnl. EXTREMITIES: Full bilateral forward flexion, no tenderness about shoulder girdles. 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 SKIN: Healing right lateral incision dressing, dry, some surrounding erythema noted. LABORATORY DATA: Please see below. ASSESSMENT: 84 year-old hypertensive diabetic female with past medical history of chronic liver disease who presents status post cemented hemiarthroplasty for Right hip fracture 02.26.2020. Post operatively has had hypotension, anemia, altered mental status, however is clearing and would benefit from rehabilitation interventions to regain optimal functional independence. PLAN: 1. Rehab- PT/OT advance gait and ADls, strengthen/stretch/maintain ROM all 4 limbs. We'll continue to work on timing pain medication with therapy interventions to optimize possible capacity to participate while also being cautious of limited hepatic metabolic capacity. 2. Neuro- Continue Lactulose for chronic metabolic encephalopathy. SHOWROOM SALESPERSON orientation, cognitive processing 3. Ortho- THR hip precautions, LAITH, ASA 4. Cardiac- Shifted position of heart,Longstanding Murmur, s/p pacemaker 2007 Dr. Ravi, Dr. Watts for bradycardia, stable cardiac function Anemia Hgb on recheck today 8.7 -HTN c/u BP meds 5. Resp pleural effusion with hx under-inflated lung from prior thoracentesis 2018 incentive spirometry, monitor for need of oxygen supplementation, RT, possible infection -Duonebs ordered 6. Endo- hx of DM, stable on 7. - monitor PVRs 8. GI ppx-concern for possible GI bleed while on ASA which was changed to EC today, increased omeprazole to BID and added sucralfate, FOBT pending, continue Lactulose, Spironolactone, monitor 9. Hyponatremia- patient started on fluid restriction per medicine, c/u to monitor 10. Pain- c./u tramadol, judicious use of tylenol in setting of cirrhosis 9. DVT prophylaxis ASA BID Allergies Coded Allergies: No Known Drug Allergies (Verified Allergy, Unknown, 02/25/20) meperidine (Verified Adverse Reaction, Mild, N/V, 02/25/20) Vital Signs Vital Signs Date Time Temp Pulse Resp B/P (MAP) Pulse Ox O2 Delivery O2 Flow Rate FiO2 03/02/20 09:46 20 03/02/20 06:00 99.4 74 123/62 (82) 100 Room Air 03/01/20 08:00 2.0 Laboratory Data CBC/BMP Laboratory Tests 03/01/20 12:42 03/02/20 06:47 03/02/20 10:30 Labs 24H Laboratory Tests 2 03/01/20 11:25: Bedside Glucose (Misc Panel) 256H 03/01/20 12:42: Nucleated Red Blood Cells % (auto) 0.2H 03/01/20 16:17: Bedside Glucose (Misc Panel) 211H 03/01/20 19:00: Urine Random Osmolality 346L, Urine Random Sodium 45 03/01/20 19:38: Bedside Glucose (Misc Panel) 263H 03/02/20 05:57: Bedside Glucose (Misc Panel) 162H 03/02/20 06:47: Nucleated Red Blood Cells % (auto) 0.4H, Anion Gap 5L, Glomerular Filtration Rate 58.9, Calcium Level 9.4 Current Medications Current Medications Current Medications Medications (Trade) Dose Ordered Sig/Paige Route PRN Reason Start Time Stop Time Status Last Admin Dose Admin Acetaminophen (Tylenol Tab) 650 mg Q6HP PRN PO PAIN / FEVER 02/27/20 17:45 02/28/20 21:50 Albuterol/ Ipratropium (Duoneb (Ipr 0.5mg/Alb 2.5mg)) 3 ml RQID NEB 03/02/20 12:00 Aspirin (Aspirin Chewable) 81 mg BID PO 02/27/20 21:00 03/02/20 09:57 DC 03/02/20 09:02 Aspirin (Ecotrin) 81 mg BID PO 03/02/20 21:00 Calcium Polycarbophil (Fiber Con) 1 ea DAILY PO 02/28/20 09:00 03/02/20 09:01 Dextrose (Dextrose 50%) 25 ml ASDIRECTED PRN IV SEE LABEL COMMENTS 02/27/20 17:45 Glucagon (Glucagon) 1 mg ASDIRECTED PRN SC SEE LABEL COMMENTS 02/27/20 17:45 Glucose (Glucose) 16 GM ASDIRECTED PRN PO SEE LABEL COMMENTS 02/27/20 17:45 Home Med (Med Rec Complete!) ASDIRECTED XX 02/27/20 18:00 02/27/20 18:00 DC Insulin Detemir (Levemir Insulin) 10 units BID SC 02/27/20 21:00 03/02/20 09:01 Insulin Human Lispro (HumaLOG INSULIN) See Protocol Table AC SC 02/27/20 17:30 03/02/20 09:01 Insulin Human Lispro (HumaLOG INSULIN) See Protocol Table QHS SC 02/27/20 21:00 03/01/20 20:36 Lactulose (Cephulac) 15 ml DAILY PO 02/28/20 09:00 03/02/20 09:02 Levalbuterol HCl (Xopenex Hfa) 2 puff Q4HP PRN INH SHORTNESS OF BREATH 02/27/20 17:45 Omeprazole (PriLOSEC) 20 mg BID PO 03/02/20 21:00 Omeprazole (PriLOSEC) 20 mg DAILY PO 02/28/20 09:00 03/02/20 09:55 DC 03/02/20 09:01 Ondansetron HCl (Zofran) 4 mg Q8HP PRN PO NAUSEA OR VOMITING 02/27/20 17:45 Sodium Chloride (Sodium Chloride) 2 gm BID PO 02/28/20 09:00 03/02/20 08:59 DC 03/01/20 20:37 Spironolactone (Aldactone) 12.5 mg DAILY PO 02/28/20 09:00 03/02/20 09:01 Sucralfate (Carafate) 1 gm BID@0730,1730 PO 03/02/20 07:30 03/02/20 10:19 Torsemide (Demadex) 20 mg DAILY PO 02/29/20 09:00 03/02/20 09:02 Tramadol HCl (Ultram) 50 mg Q6HP PRN PO MODERATE PAIN (PS 5-7) 02/27/20 17:45 03/02/20 09:04 DEDE ARMSTRONG MD Mar 02, 2020 11:17
[2020-03-02] MEDS: IPRATROPIUM 0.5MG/ALBUTEROL 2.5MG INH SOL UD 3ML (DUONEB) NEB SCH ×3 (11:31→20:00)
--- NOTE | 2020-03-02 12:42 | IPNPDOC ---
Text Note Date of Service The patient was seen on 03/02/20. NOTE Patient was seen and examined this morning. Participating in therapy. Tolerating diet. No acute overnight events PHYSICAL EXAMINATION: GENERAL: Comfortable, in no apparent distress. HEENT: Head normocephalic/atraumatic, EOMI, sclera clear. NECK: Supple RESPIRATORY: Diminished breath sounds on the right, otherwise clear CARDIOVASCULAR: Heart sounds are more obvious on the right, otherwise regular rate and rhythm ABDOMEN: Soft, nontender, no guarding or rebound tenderness. Normal bowel sounds. Mildly distended MUSCLE SKELETAL: Mild pitting edema NEUROLOGICAL: CN 312 grossly intact PSYCHOLOGICAL: Normal mood and affect LABORATORY DATA: Please see below. ASSESSMENT/PLAN: 84 year-old hypertensive diabetic female with past medical history of chronic liver disease who presents status post hemiarthroplasty for Right hip fracture 02.26.2020 and currently in ARU to regain optimal functional independence. 1. Right femoral neck fracture 2/2 mechanical fall: Went to the OR on 02/26/2020 for a right hemiarthroplasty of the hip. Continue ARU for rehabilitation 2. Right entrapped lung: Chronic. Thoracentesis in 2018 did not re-expand lung. Saturating well at room air 3. Cirrhosis. Continue with torsemide, spironolactone, and lactulose to have 2-3 BMS 4. DM : Continue insulin sliding scale and levemir 5. Pacemaker: Placed for recurrent syncopal episode due to bradycardia[place] [address] Ravi and Dr[address] Watts. Out patient followup 6. GERD: Continue omeprazole 7. Hyponatremia: Stable around 130. 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 No intervention at this time. DVT ppx: Aspirin 81 mg twice a day for 35 days as per ortho Pain control as per primary Disposition as per primary. VS,Fishbone, I+O VS, Fishbone, I+O Laboratory Tests 03/01/20 12:42 03/02/20 06:47 03/02/20 10:30 Vital Signs Date Time Temp Pulse Resp B/P (MAP) Pulse Ox O2 Delivery O2 Flow Rate FiO2 03/02/20 09:46 20 03/02/20 06:00 99.4 74 123/62 (82) 100 Room Air 03/01/20 08:00 2.0 I&O- Last 24 Hours up to 6 AM 03/02/20 05:59 Intake Total 1040 ml Balance 1040 ml KT WHITE MD Mar 02, 2020 12:34
[2020-03-02 14:00] VITALS: BP 109/54
[2020-03-02 20:35] VITALS: BP 132/61
[2020-03-02] MEDS: ASPIRIN 81 MG ENTERIC TAB PO SCH (21:00)
[2020-03-03] VITALS (8 sets, daily range): BP systolic 95–114; BP diastolic 55–67
[2020-03-03 07:22] LABS: BASO % 0.3 % (0.0-1.0); EOS # 0.1 10^3/uL (0.0-0.5); EOS % 1.6 % (0.0-3.0); HEMATOCRIT 24.3 % (36.0-47.0); HEMOGLOBIN 7.8 g/dl (12.0-15.5); LYMPH # 0.8 10^3/uL (1.5-5.0); LYMPH % 9.9 % (24.0-44.0); MEAN CORPUSCULAR HEMOGLOBIN 33.6 pg (27.0-33.0); MEAN CORPUSCULAR HGB CONC 32.1 g/dl (32.0-36.5); MEAN CORPUSCULAR VOLUME 104.7 fl (80.0-96.0); MONO # 1.2 10^3/uL (0.0-0.8); MONO % 15.4 % (0.0-5.0); NEUTROPHILS # 5.6 10^3/uL (1.5-8.5); NEUTROPHILS % 70.8 % (36.0-66.0); PLATELET COUNT, AUTOMATED 226 10^3/uL (150-450); RED BLOOD COUNT 2.32 10^6/uL (4.00-5.40); WHITE BLOOD COUNT 7.9 10^3/uL (4.0-10.0)
[2020-03-03] MEDS: IPRATROPIUM 0.5MG/ALBUTEROL 2.5MG INH SOL UD 3ML (DUONEB) NEB SCH ×4 (07:26→19:25)
[2020-03-03 07:43] LABS: CREATININE FOR GFR 0.99 MG/DL (0.55-1.30); GLOMERULAR FILTRATION RATE 56.9 (>32); POTASSIUM SERUM 3.8 MEQ/L (3.5-5.1)
[2020-03-03] MEDS: SUCRALFATE 1 GM TAB PO SCH ×2 (08:34→17:53)
[2020-03-03] MEDS: TORSEMIDE 20 MG TAB PO SCH (08:35)
[2020-03-03] MEDS: HumaLOG INSULIN (NovoLOG) PER UNIT SC SCH ×4 (08:35→21:00)
[2020-03-03] MEDS: LEVEMIR (INSULIN DETEMIR) 1 UNITS/0.01ML SC SCH ×2 (08:35→20:59)
[2020-03-03] MEDS: SPIRONOLACTONE 12.5MG PER 1/2 TABLET PO SCH (08:36)
[2020-03-03] MEDS: ASPIRIN 81 MG ENTERIC TAB PO SCH ×2 (08:36→20:58)
[2020-03-03] MEDS: LACTULOSE 20 GM/30 ML SYRUP UD PO SCH (08:36)
[2020-03-03] MEDS: FIBER-CON 625 MG TAB PO SCH (08:36)
[2020-03-03] MEDS: OMEPRAZOLE 20 MG CAP PO SCH ×2 (08:36→20:59)
[2020-03-03] MEDS: traMADol 50 MG TAB PO SCH (08:36)
[2020-03-03] MEDS ORDERED: diphenhydrAMINE 25MG CAP PO ONE (12:30)
[2020-03-03] MEDS ORDERED: ACETAMINOPHEN TAB 650MG DOSE (2X325MG) PO ONE (12:30)
[2020-03-03] MEDS ORDERED: FUROSEMIDE 20MG/2ML VIAL (J1940) IV ONE (12:30)
--- NOTE | 2020-03-03 12:37 | IPNPDOC ---
PM&R Progress Note DATE OF SERVICE: Mar 03, 2020 Log Manager Progress Note Subjective: PAtient seen in therapy stating she does feel a little more short of breath than usual and is open to a blood transfusion. REVIEW OF SYSTEMS: The following is a completed review of systems and has been reviewed. Review of systems otherwise unremarkable. PAIN: right hip pain EYES: No recent vision changes. EARS, NOSE, & THROAT: No throat pain, or dysphagia, or rhinorrhea. CARDIOVASCULAR: Denies chest pain or palpitations. PULMONARY: admits shortness of breath (chronic) GASTROINTESTINAL: Denies constipation/diarrhea. 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 PHYSICAL EXAMINATION: VITAL SIGNS: Please see below. GENERAL: Pleasant and cooperative. HEENT: PERRL. Extraocular movements intact. Clear conjunctiva, no adenopathy or thyromegaly. Full cervical range of motion without tenderness or spasm. CARDIOVASCULAR: Regular rate and rhythm. Holosystolic machine murmur bilateral anterior chest szymanski. Palpable pacemaker LUNGS: Clear to auscultation bilaterally. Diminished breath sounds bilateral bases. No wheezes. No rhonchi. no crackles ABDOMEN: Soft, nontender, mildly distended. Positive bowel sounds.no organomegaly. NEUROLOGICAL: Cranial nerves II through XII intact. Sensation intact all 4 extremities. Tone wnl. EXTREMITIES: Full bilateral forward flexion, no tenderness about shoulder girdles. healing anterior foreleg abrasions, 5 /5 bilateral inspector golf ball, elbow flexion, unable to fully test knee extension, 5/5 foot dorsiflexion, plantar flexion. SKIN: Healing right lateral incision dressing, dry, some surrounding erythema noted. bilat LE edema LABORATORY DATA: Please see below. ASSESSMENT: 84 year-old hypertensive diabetic female with past medical history of chronic liver disease who presents status post cemented hemiarthroplasty for Right hip fracture 02.26.2020. Post operatively has had hypotension, anemia, altered mental status, however is clearing and would benefit from rehabilitation interventions to regain optimal functional independence. PLAN: 1. Rehab- PT/OT advance gait and ADls, strengthen/stretch/maintain ROM all 4 limbs. We'll continue to work on timing pain medication with therapy inter ventions to optimize possible capacity to participate while also being cautious of limited hepatic metabolic capacity. 2. Neuro- Continue Lactulose for chronic metabolic encephalopathy. DYE REEL OPERATOR HELPER orientation, cognitive processing 3. Ortho- THR hip precautions, LAITH, ASA 4. Cardiac- Shifted position of heart,Longstanding Murmur, s/p pacemaker 2007 [address]. Ravi, Dr. Watts for bradycardia, stable cardiac function -HTN c/u BP meds 5. Resp pleural effusion with hx under-inflated lung from prior thoracentesis 2017 incentive spirometry, monitor for need of oxygen supplementation, RT, possible infection -Duonebs ordered 6. Endo- hx of DM, stable on 7. - monitor PVRs 8. GI ppx-concern for possible GI bleed while on ASA which was changed to EC , c/u increased omeprazole BID and sucralfate, FOBT pending, continue Lactulose, Spironolactone, monitor 9. Hyponatremia- patient started on fluid restriction per medicine, will change from 1500cc to 1800cc and add back 2g salt and monitor for worsening hy ponatremia, will consider renal consult for fluid management as patient on diuretics for CHF 10. Pain- c./u tramadol, judicious use of tylenol in setting of cirrhosis 9. DVT prophylaxis ASA BID 10. Heme- patient with fluctuating H/H msotly <8 and symptomatic, will transfuse 1 unit prbc today 11. Dispo- tbd Allergies Coded Allergies: No Known Drug Allergies (Verified Allergy, Unknown, 02/25/20) meperidine (Verified Adverse Reaction, Mild, N/V, 02/25/20) Vital Signs Vital Signs Date Time Temp Pulse Resp B/P (MAP) Pulse Ox O2 Delivery O2 Flow Rate FiO2 03/03/20 08:36 18 03/03/20 06:00 97.2 74 104/61 (75) 98 Room Air 03/01/20 08:00 2.0 Laboratory Data CBC/BMP Laboratory Tests 03/03/20 06:58 Labs 24H Laboratory Tests 2 03/02/20 16:19: Bedside Glucose (Misc Panel) 302H 03/02/20 20:57: Bedside Glucose (Misc Panel) 256H 03/03/20 06:53: Bedside Glucose (Misc Panel) 147H 03/03/20 06:58: Immature Granulocyte % (Auto) 2.0, Neutrophils (%) (Auto) 70.8H, Lymphocytes (%) (Auto) 9.9L, Monocytes (%) (Auto) 15.4H, Eosinophils (%) (Auto) 1.6, Basophils (%) (Auto) 0.3, Neutrophils # (Auto) 5.6, Lymphocytes # (Auto) 0.8L, Monocytes # (Auto) 1.2H, Eosinophils # (Auto) 0.1, Basophils # (Auto) 0.0, Nucleated Red Blood Cells % (auto) 0.0, Anion Gap 5L, Glomerular Filtration Rate 56.9, Calcium Level 9.0 03/03/20 11:37: Bedside Glucose (Misc Panel) 209H Current Medications Current Medications Current Medications Medications (Trade) Dose Ordered Sig/Paige Route PRN Reason Start Time Stop Time Status Last Admin Dose Admin Acetaminophen (Tylenol Tab) 650 mg Q6HP PRN PO PAIN / FEVER 02/27/20 17:45 03/02/20 11:08 DC 02/28/20 21:50 Acetaminophen (Tylenol Tab) 650 mg Q6HP PRN PO MILD PAIN, FEVER 03/02/20 11:15 03/02/20 21:12 Albuterol/ Ipratropium (Duoneb (Ipr 0.5mg/Alb 2.5mg)) 3 ml RQID NEB 03/02/20 12:00 03/03/20 07:26 Aspirin (Aspirin Chewable) 81 mg BID PO 02/27/20 21:00 03/02/20 09:57 DC 03/02/20 09:02 Aspirin (Ecotrin) 81 mg BID PO 03/02/20 21:00 03/03/20 08:36 Calcium Polycarbophil (Fiber Con) 1 ea DAILY PO 02/28/20 09:00 03/03/20 08:36 Dextrose (Dextrose 50%) 25 ml ASDIRECTED PRN IV SEE LABEL COMMENTS 02/27/20 17:45 Glucagon (Glucagon) 1 mg ASDIRECTED PRN SC SEE LABEL COMMENTS 02/27/20 17:45 Glucose (Glucose) 16 GM ASDIRECTED PRN PO SEE LABEL COMMENTS 02/27/20 17:45 Home Med (Med Rec Complete!) ASDIRECTED XX 02/27/20 18:00 02/27/20 18:00 DC Insulin Detemir (Levemir Insulin) 10 units BID SC 02/27/20 21:00 03/03/20 09:34 DC 03/03/20 08:35 Insulin Detemir (Levemir Insulin) 10 units QHS [place] 03/03/20 21:00 Insulin Detemir (Levemir Insulin) 15 units DAILY SC 03/04/20 09:00 Insulin Human Lispro (HumaLOG INSULIN) See Protocol Table AC [place] 02/27/20 17:30 03/03/20 08:35 Insulin Human Lispro (HumaLOG INSULIN) [facility] 02/27/20 21:00 03/02/20 21:08 Lactulose (Cephulac) 15 ml DAILY PO 02/28/20 09:00 03/03/20 08:36 Levalbuterol HCl (Xopenex Hfa) 2 puff Q4HP PRN INH SHORTNESS OF BREATH 02/27/20 17:45 Omeprazole (PriLOSEC) 20 mg BID PO 03/02/20 21:00 03/03/20 08:36 Omeprazole (PriLOSEC) 20 mg DAILY PO 02/28/20 09:00 03/02/20 09:55 DC 03/02/20 09:01 Ondansetron HCl (Zofran) 4 mg Q8HP PRN PO NAUSEA OR VOMITING 02/27/20 17:45 Sodium Chloride (Sodium Chloride) 2 gm BID PO 02/28/20 09:00 03/02/20 08:59 DC 03/01/20 20:37 Spironolactone (Aldactone) 12.5 mg DAILY PO 02/28/20 09:00 03/03/20 08:36 Sucralfate (Carafate) 1 gm BID@0730,1730 PO 03/02/20 07:30 03/03/20 08:34 Torsemide (Demadex) 20 mg DAILY PO 02/29/20 09:00 03/03/20 08:35 Tramadol HCl (Ultram) 50 mg DAILY@0800 PO 03/03/20 08:00 03/03/20 08:36 Tramadol HCl (Ultram) 50 mg Q6HP PRN PO MODERATE PAIN (PS 5-7) 02/27/20 17:45 03/02/20 09:04 DEDE ARMSTRONG MD Mar 03, 2020 12:37
--- NOTE | 2020-03-03 13:17 | IPNPDOC ---
Text Note Date of Service The patient was seen on 03/03/20. NOTE Patient was seen and examined this morning. Participating in therapy. Not happy about the fluid restriction. Asking to change the diet PHYSICAL EXAMINATION: GENERAL: Comfortable, in no apparent distress. HEENT: Head normocephalic/atraumatic, EOMI, sclera clear. NECK: Supple RESPIRATORY: Diminished breath sounds on the right, otherwise clear CARDIOVASCULAR: Heart sounds are more obvious on the right, otherwise regular rate and rhythm ABDOMEN: Soft, nontender, no guarding or rebound tenderness. Normal bowel sounds. Mildly distended MUSCLE SKELETAL: SUNNY wraps in place. NEUROLOGICAL: CN 312 grossly intact PSYCHOLOGICAL: Normal mood and affect LABORATORY DATA: Please see below. ASSESSMENT/PLAN: 84 year-old hypertensive diabetic female with past medical history of chronic liver disease who presents status post hemiarthroplasty for Right hip fracture 02.26.2020 and currently in ARU to regain optimal functional independence. 1. Right femoral neck fracture 2/2 mechanical fall: Went to the OR on 02/26/2020 for a right hemiarthroplasty of the hip. Continue ARU for rehabilitation 2. Right entrapped lung: Chronic. Thoracentesis in 2018 did not re-expand lung. Saturating well at room air 3. Cirrhosis. Continue with torsemide, spironolactone, and lactulose to have 2-3 BMS 4. DM : Continue insulin sliding scale and levemir 5. Pacemaker: Placed for recurrent syncopal episode due to bradycardia. [place] [address] Ravi and Dr[address] Watts. Out patient followup 6. GERD: Continue omeprazole 7. Hyponatremia: Stable around 130. 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 No intervention at this time. DVT ppx: Aspirin 81 mg twice a day for 35 days as per ortho Pain control as per primary Disposition as per primary. VS,Fishbone, I+O VS, Fishbone, I+O Laboratory Tests 03/03/20 06:58 Vital Signs Date Time Temp Pulse Resp B/P (MAP) Pulse Ox O2 Delivery O2 Flow Rate FiO2 03/03/20 08:36 18 03/03/20 06:00 97.2 74 104/61 (75) 98 Room Air 03/01/20 08:00 2.0 I&O- Last 24 Hours up to 6 AM 03/03/20 06:00 Intake Total 1570 ml Output Total 375 ml Balance 1195 ml KT WHITE MD Mar 03, 2020 13:17
[2020-03-03] MEDS: traMADol 50 MG TAB PO PRN (23:18)
[2020-03-04] MEDS ORDERED: ECOT81TA5 PO (05:59)
[2020-03-04 06:38] VITALS: BP 115/64
[2020-03-04 06:44] LABS: BASO % 0.5 % (0.0-1.0); EOS # 0.1 10^3/uL (0.0-0.5); EOS % 1.7 % (0.0-3.0); HEMATOCRIT 27.6 % (36.0-47.0); HEMOGLOBIN 9.1 g/dl (12.0-15.5); LYMPH # 0.7 10^3/uL (1.5-5.0); LYMPH % 8.9 % (24.0-44.0); MEAN CORPUSCULAR HEMOGLOBIN 33.7 pg (27.0-33.0); MEAN CORPUSCULAR VOLUME 102.2 fl (80.0-96.0); MONO # 1.3 10^3/uL (0.0-0.8); MONO % 17.6 % (0.0-5.0); NEUTROPHILS # 5.3 10^3/uL (1.5-8.5); NEUTROPHILS % 69.9 % (36.0-66.0); PLATELET COUNT, AUTOMATED 210 10^3/uL (150-450); WHITE BLOOD COUNT 7.6 10^3/uL (4.0-10.0)
[2020-03-04 07:03] LABS: CALCIUM LEVEL 9.4 MG/DL (8.8-10.2); CREATININE FOR GFR 0.98 MG/DL (0.55-1.30); GLOMERULAR FILTRATION RATE 57.6 (>32); POTASSIUM SERUM 3.9 MEQ/L (3.5-5.1)
[2020-03-04] MEDS: LACTULOSE 20 GM/30 ML SYRUP UD PO SCH (08:25)
[2020-03-04] MEDS: traMADol 50 MG TAB PO SCH (08:26)
[2020-03-04] MEDS: SPIRONOLACTONE 12.5MG PER 1/2 TABLET PO SCH (08:26)
[2020-03-04] MEDS: TORSEMIDE 20 MG TAB PO SCH (08:27)
[2020-03-04] MEDS: LEVEMIR (INSULIN DETEMIR) 1 UNITS/0.01ML SC SCH ×2 (08:27→21:20)
[2020-03-04] MEDS: ASPIRIN 81 MG ENTERIC TAB PO SCH ×2 (08:27→21:20)
[2020-03-04] MEDS: SUCRALFATE 1 GM TAB PO SCH ×2 (08:27→17:14)
[2020-03-04] MEDS: HumaLOG INSULIN (NovoLOG) PER UNIT SC SCH ×4 (08:28→21:00)
[2020-03-04] MEDS: OMEPRAZOLE 20 MG CAP PO SCH ×2 (08:29→21:20)
[2020-03-04] MEDS: FIBER-CON 625 MG TAB PO SCH (08:29)
[2020-03-04] MEDS: IPRATROPIUM 0.5MG/ALBUTEROL 2.5MG INH SOL UD 3ML (DUONEB) NEB SCH ×3 (08:35→19:50)
--- NOTE | 2020-03-04 10:47 | IPNPDOC ---
PM&R Progress Note DATE OF SERVICE: Mar 04, 2020 Nanoelectronics Engineer Progress Note Subjective: Patient repoting she still feels short of breath on exertion, but it is no worse than yesterday, she really wants to drink more water. She denies feeling any better after getting a unit of blood. She reports the tramadol in the morning is helping her hip pain. REVIEW OF SYSTEMS: The following is a completed review of systems and has been reviewed. Review of systems otherwise unremarkable. PAIN: right hip pain EYES: No recent vision changes. EARS, NOSE, & THROAT: No throat pain, or dysphagia, or rhinorrhea. CARDIOVASCULAR: Denies chest pain or palpitations. PULMONARY: admits shortness of breath (chronic) GASTROINTESTINAL: Denies constipation/diarrhea. 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 PHYSICAL EXAMINATION: VITAL SIGNS: Please see below. GENERAL: Pleasant and cooperative. HEENT: PERRL. Extraocular movements intact. Clear conjunctiva, no adenopathy or thyromegaly. Full cervical range of motion without tenderness or spasm. CARDIOVASCULAR: Regular rate and rhythm. Holosystolic machine murmur bilateral anterior chest szymanski. Palpable pacemaker LUNGS: Clear to auscultation bilaterally. Diminished breath sounds bilateral bases. No wheezes. No rhonchi. no crackles ABDOMEN: Soft, nontender, mildly distended. Positive bowel sounds.no organomegaly. NEUROLOGICAL: Cranial nerves II through XII intact. Sensation intact all 4 extremities. Tone wnl. EXTREMITIES: Full bilateral forward flexion, no tenderness about shoulder girdles. healing anterior foreleg abrasions, 5 /5 bilateral compliance advisor, elbow flexion, unable to fully test knee extension, 5/5 foot dorsiflexion, plantar flexion. SKIN: Healing right lateral incision dressing, dry, some surrounding erythema noted. bilat LE edema (improving) LABORATORY DATA: Please see below. ASSESSMENT: 84 year-old hypertensive diabetic female with past medical history of chronic liver disease who presents status post cemented hemiarthroplasty for Right hip fracture 02.26.2020. Post operatively has had hypotension, anemia, altered mental status, however is clearing and would benefit from rehabilitation interventions to regain optimal functional independence. PLAN: 1. Rehab- PT/OT advance gait and ADls, strengthen/stretch/maintain ROM all 4 limbs. We'll continue to work on timing pain medication with therapy interventions to optimize possible capacity to participate while also being cautious of limited hepatic metabolic capacity. 2. Neuro- Continue Lactulose for chronic metabolic encephalopathy. DRYING SUPERVISOR orientation, cognitive processing 3. Ortho- THR hip precautions, LAITH, ASA 4. Cardiac- Shifted position of heart,Longstanding Murmur, s/p pacemaker 2007 Dr. Ravi, Dr. Watts for bradycardia, stable cardiac function -HTN c/u BP meds 5. Resp right pleural effusion with hx under-inflated lung from prior thoracentesis 2018 incentive spirometry, monitor for need of oxygen supplementation, RT, possible infection- repeat CXR ordered today to monitor effusion noted on last CXR from 02-25-20 patient still short of breath on exertion, but no worse and has lost weight -Duonebs ordered 6. Endo- hx of DM, stable on 7. - monitor PVRs 8. GI ppx-concern for possible GI bleed while on ASA which was changed to EC , c/u increased omeprazole BID and sucralfate, FOBT pending, continue Lactulose, Spironolactone- FOBT negative 9. Hyponatremia- patient started on fluid restriction per medicine, changed from 1500cc to 1800cc 03-03-20 and added back on 2g salt and monitor for worsening hyponatremia, will consider renal consult for fluid management as patient on diuretics for CHF however patient today appears less edematous and Na up to 132 10. Pain- c./u tramadol, judicious use of tylenol in setting of cirrhosis 9. DVT prophylaxis ASA BID 10. Heme- patient with fluctuating H/H msotly <8 and symptomatic, s/p i unit given 03-03-20 Hgb 9.1 today 11. Dispo- tbd Allergies Coded Allergies: No Known Drug Allergies (Verified Allergy, Unknown, 02/25/20) meperidine (Verified Adverse Reaction, Mild, N/V, 02/25/20) Vital Signs Vital Signs Date Time Temp Pulse Resp B/P (MAP) Pulse Ox O2 Delivery O2 Flow Rate FiO2 03/04/20 08:26 18 Room Air 03/04/20 06:38 97.6 72 115/64 (81) 98 03/01/20 08:00 2.0 Laboratory Data CBC/BMP Laboratory Tests 03/04/20 06:02 Labs 24H Laboratory Tests 2 03/03/20 11:37: Bedside Glucose (Misc Panel) 209H 03/03/20 16:43: Bedside Glucose (Misc Panel) 273H 03/03/20 20:14: Bedside Glucose (Misc Panel) 336H 03/04/20 06:02: Immature Granulocyte % (Auto) 1.4, Neutrophils (%) (Auto) 69.9H, Lymphocytes (%) (Auto) 8.9L, Monocytes (%) (Auto) 17.6H, Eosinophils (%) (Auto) 1.7, Basophils (%) (Auto) 0.5, Neutrophils # (Auto) 5.3, Lymphocytes # (Auto) 0.7L, Monocytes # (Auto) 1.3H, Eosinophils # (Auto) 0.1, Basophils # (Auto) 0.0, Nucleated Red Blood Cells % (auto) 0.3H, Anion Gap 5L, Glomerular Filtration Rate 57.6, Calcium Level 9.4 03/04/20 06:29: Bedside Glucose (Misc Panel) 192H Microbiology Microbiology 03/04/20 Stool Occult Blood (THOM) - Final, Complete Current Medications Current Medications Current Medications Medications (Trade) Dose Ordered Sig/Paige Route PRN Reason Start Time Stop Time Status Last Admin Dose Admin Acetaminophen (Tylenol Tab) 650 mg Q6HP PRN PO PAIN / FEVER 02/27/20 17:45 03/02/20 11:08 DC 02/28/20 21:50 Acetaminophen (Tylenol Tab) 650 mg Q6HP PRN PO MILD PAIN, FEVER 03/02/20 11:15 03/02/20 21:12 Albuterol/ Ipratropium (Duoneb (Ipr 0.5mg/Alb 2.5mg)) 3 ml RQID NEB 03/02/20 12:00 03/04/20 08:35 Aspirin (Aspirin Chewable) 81 mg BID PO 02/27/20 21:00 03/02/20 09:57 DC 03/02/20 09:02 Aspirin (Ecotrin) 81 mg BID PO 03/02/20 21:00 03/04/20 08:27 Calcium Polycarbophil (Fiber Con) 1 ea DAILY PO 02/28/20 09:00 03/04/20 08:29 Dextrose (Dextrose 50%) 25 ml ASDIRECTED PRN IV SEE LABEL COMMENTS 02/27/20 17:45 Glucagon (Glucagon) 1 mg ASDIRECTED PRN SC SEE LABEL COMMENTS 02/27/20 17:45 Glucose (Glucose) 16 GM ASDIRECTED PRN PO SEE LABEL COMMENTS 02/27/20 17:45 Home Med (Med Rec Complete!) ASDIRECTED XX 02/27/20 18:00 02/27/20 18:00 DC Insulin Detemir (Levemir Insulin) 10 units BID SC 02/27/20 21:00 03/03/20 09:34 DC 03/03/20 08:35 Insulin Detemir (Levemir Insulin) 10 units QHS SC 03/03/20 21:00 03/03/20 20:59 Insulin Detemir (Levemir Insulin) 15 units DAILY SC 03/04/20 09:00 03/04/20 08:27 Insulin Human Lispro (HumaLOG INSULIN) See Protocol Table AC [place] 02/27/20 17:30 03/04/20 08:28 Insulin Human Lispro (HumaLOG INSULIN) See Protocol Table QHS [place] 02/27/20 21:00 03/03/20 21:00 Lactulose (Cephulac) 15 ml DAILY PO 02/28/20 09:00 03/04/20 08:25 Levalbuterol HCl (Xopenex Hfa) 2 puff Q4HP PRN INH SHORTNESS OF BREATH 02/27/20 17:45 Omeprazole (PriLOSEC) 20 mg BID PO 03/02/20 21:00 03/04/20 08:29 Omeprazole (PriLOSEC) 20 mg DAILY PO 02/28/20 09:00 03/02/20 09:55 DC 03/02/20 09:01 Ondansetron HCl (Zofran) 4 mg Q8HP PRN PO NAUSEA OR VOMITING 02/27/20 17:45 Sodium Chloride (Sodium Chloride) 2 gm BID PO 02/28/20 09:00 03/02/20 08:59 DC 03/01/20 20:37 Spironolactone (Aldactone) 12.5 mg DAILY PO 02/28/20 09:00 03/04/20 08:26 Sucralfate (Carafate) 1 gm BID@0730,1730 PO 03/02/20 07:30 03/04/20 08:27 Torsemide (Demadex) 20 mg DAILY PO 02/29/20 09:00 03/04/20 08:27 Tramadol HCl (Ultram) 50 mg DAILY@0800 PO 03/03/20 08:00 03/04/20 08:26 Tramadol HCl (Ultram) 50 mg Q6HP PRN PO MODERATE PAIN (PS 5-7) 02/27/20 17:45 03/03/20 23:18 DEDE ARMSTRONG MD Mar 04, 2020 10:47
[2020-03-04 14:00] VITALS: BP_SYST 153; BP_SYST 171; BP_DIAS 63; BP_DIAS 88
--- NOTE | 2020-03-04 14:35 | REP ---
INDICATION: hx of effusion, monitor size. COMPARISON: Comparison chest x-ray February 25, 2020. TECHNIQUE: Two views.. FINDINGS: A bipolar pacemaker is seen in the enlarged right heart view of the left side. Left lung remains clear. Left pleural angles are sharp. No infiltrate noted on the left. There is volume loss in the right hemithorax with shift of mediastinum to the right unchanged. There is also blunting of the right lateral pleural angle and pleural fluid or pleural thickening are seen along the right lateral chest wall. There is fullness in the right perihilar region. These findings are unchanged from February 25, 2020. IMPRESSION: Volume loss in the right hemithorax and evidence of right pleural effusion and/or pleural thickening. Fullness in the right perihilar region. Unchanged from February 25, 2020.. <Electronically signed by Abdiel Vieira > 03/04/20 2198
[2020-03-04 20:00] VITALS: BP 114/60
[2020-03-05 06:00] VITALS: BP 119/59
[2020-03-05] MEDS: IPRATROPIUM 0.5MG/ALBUTEROL 2.5MG INH SOL UD 3ML (DUONEB) NEB SCH ×4 (08:00→19:27)
[2020-03-05] MEDS: HumaLOG INSULIN (NovoLOG) PER UNIT SC SCH ×4 (09:32→21:00)
[2020-03-05] MEDS: LEVEMIR (INSULIN DETEMIR) 1 UNITS/0.01ML SC SCH ×2 (09:33→21:02)
[2020-03-05] MEDS: SPIRONOLACTONE 12.5MG PER 1/2 TABLET PO SCH (09:34)
[2020-03-05] MEDS: SUCRALFATE 1 GM TAB PO SCH ×2 (09:34→17:59)
[2020-03-05] MEDS: traMADol 50 MG TAB PO SCH (09:34)
[2020-03-05] MEDS: LACTULOSE 20 GM/30 ML SYRUP UD PO SCH (09:34)
[2020-03-05] MEDS: ASPIRIN 81 MG ENTERIC TAB PO SCH ×2 (09:35→21:02)
[2020-03-05] MEDS: TORSEMIDE 20 MG TAB PO SCH (09:35)
[2020-03-05] MEDS: FIBER-CON 625 MG TAB PO SCH (09:35)
[2020-03-05] MEDS: OMEPRAZOLE 20 MG CAP PO SCH ×2 (09:35→21:02)
--- NOTE | 2020-03-05 09:40 | IPNPDOC ---
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 REVIEW OF SYSTEMS: The following is a completed review of systems and has been reviewed. Review of systems otherwise unremarkable. PAIN: right hip pain EYES: No recent vision changes. EARS, NOSE, & THROAT: No throat pain, or dysphagia, or rhinorrhea. CARDIOVASCULAR: Denies chest pain or palpitations. PULMONARY: admits shortness of breath (chronic) GASTROINTESTINAL: Denies constipation/diarrhea. 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 PHYSICAL EXAMINATION: VITAL SIGNS: Please see below. GENERAL: Pleasant and cooperative. HEENT: PERRL. Extraocular movements intact. Clear conjunctiva, no adenopathy or thyromegaly. Full cervical range of motion without tenderness or spasm. CARDIOVASCULAR: Regular rate and rhythm. Holosystolic machine murmur bilateral anterior chest szymanski. Palpable pacemaker LUNGS: Clear to auscultation bilaterally. Diminished breath sounds bilateral bases. No wheezes. No rhonchi. no crackles ABDOMEN: Soft, nontender, mildly distended. Positive bowel sounds.no organomegaly. NEUROLOGICAL: Cranial nerves II through XII intact. Sensation intact all 4 extremities. Tone wnl. EXTREMITIES: Full bilateral forward flexion, no tenderness about shoulder girdles. healing anterior foreleg abrasions, 5 /5 bilateral steel grinder, elbow flexion, unable to fully test knee extension, 5/5 foot dorsiflexion, plantar flexion. SKIN: Healing right lateral incision dressing, dry, some surrounding erythema noted. bilat LE edema (improving) LABORATORY DATA: Please see below. ASSESSMENT: 84 year-old hypertensive diabetic female with past medical history of chronic liver disease who presents status post cemented hemiarthroplasty for Right hip fracture 02.26.2020. Post operatively has had hypotension, anemia, altered mental status, however is clearing and would benefit from rehabilitation interventions to regain optimal functional independence. PLAN: 1. Rehab- PT/OT advance gait and ADls, strengthen/stretch/maintain ROM all 4 limbs 2. Neuro- Continue Lactulose for chronic metabolic encephalopathy. DIET COUNSELOR orientation, cognitive processing 3. Ortho- THR hip precautions, LAITH, ASA 4. Cardiac- Shifted position of heart,Longstanding Murmur, s/p pacemaker 2008 Dr. Ravi, Dr. Watts for bradycardia, stable cardiac function -HTN c/u BP meds 5. Resp right pleural effusion with hx under-inflated lung from prior thoracentesis 2018 incentive spirometry, monitor for need of oxygen supplementation, RT, possible infection- repeat CXR 03-03-20 showing unchanged right sided pleural effusion which may appear larger on CXR due to underinflation of lung and shifted heart position- patients weight improving -Duonebs ordered 6. Endo- hx of DM, stable on 7. - monitor PVRs 8. GI ppx-concern for possible GI bleed while on ASA which was changed to EC , c/u increased omeprazole BID and sucralfate, continue Lactulose, Spironolactone- FOBT negative 9. Hyponatremia- patient started on fluid restriction per medicine, changed from 1500cc to 1800cc 03-03-20 and added back on 2g salt and monitor for worsening hyponatremia- Sodium levels improving, however patient still with edematous LE and is consistently requesting more water which is stalling her gains in therapy, will consult renal to see if there is a way to loosen fluid restriction and balance with more aggressive diuresis 10. Pain- c./u tramadol, judicious use of tylenol in setting of cirrhosis -lidoderm patch to right knee 9. DVT prophylaxis ASA BID 10. Heme- patient with fluctuating H/H s/p 1 unit rbc 03-03-20 11. Dispo- 03-12-20 to home Allergies Coded Allergies: No Known Drug Allergies (Verified Allergy, Unknown, 02/25/20) meperidine (Verified Adverse Reaction, Mild, N/V, 02/25/20) Vital Signs Vital Signs Date Time Temp Pulse Resp B/P (MAP) Pulse Ox O2 Delivery O2 Flow Rate FiO2 03/05/20 06:00 97.7 89 18 119/59 (79) 100 Room Air 03/01/20 08:00 2.0 Laboratory Data Labs 24H Laboratory Tests 2 03/04/20 16:21: Bedside Glucose (Misc Panel) 198H 03/04/20 20:00: Bedside Glucose (Misc Panel) 228H 03/05/20 07:19: Bedside Glucose (Misc Panel) 189H Microbiology Microbiology 03/04/20 Stool Occult Blood (THOM) - Final, Complete Current Medications Current Medications Current Medications Medications (Trade) Dose Ordered Sig/Paige Route PRN Reason Start Time Stop Time Status Last Admin Dose Admin Acetaminophen (Tylenol Tab) 650 mg Q6HP PRN PO PAIN / FEVER 02/27/20 17:45 03/02/20 11:08 DC 02/28/20 21:50 Acetaminophen (Tylenol Tab) 650 mg Q6HP PRN PO MILD PAIN, FEVER 03/02/20 11:15 03/02/20 21:12 Albuterol/ Ipratropium (Duoneb (Ipr 0.5mg/Alb 2.5mg)) 3 ml RQID NEB 03/02/20 12:00 03/04/20 19:50 Aspirin (Aspirin Chewable) 81 mg BID PO 02/27/20 21:00 03/02/20 09:57 DC 03/02/20 09:02 Aspirin (Ecotrin) 81 mg BID PO 03/02/20 21:00 03/04/20 21:20 Calcium Polycarbophil (Fiber Con) 1 ea DAILY PO 02/28/20 09:00 03/04/20 08:29 Dextrose (Dextrose 50%) 25 ml ASDIRECTED PRN IV SEE LABEL COMMENTS 02/27/20 17:45 Glucagon (Glucagon) 1 mg ASDIRECTED PRN SC SEE LABEL COMMENTS 02/27/20 17:45 Glucose (Glucose) 16 GM ASDIRECTED PRN PO SEE LABEL COMMENTS 02/27/20 17:45 Home Med (Med Rec Complete!) ASDIRECTED XX 02/27/20 18:00 02/27/20 18:00 DC Insulin Detemir (Levemir Insulin) 10 units BID SC 02/27/20 21:00 03/03/20 09:34 DC 03/03/20 08:35 Insulin Detemir (Levemir Insulin) 10 units QHS SC 03/03/20 21:00 03/04/20 21:20 Insulin Detemir (Levemir Insulin) 15 units DAILY SC 03/04/20 09:00 03/04/20 08:27 Insulin Human Lispro (HumaLOG INSULIN) See Protocol Table AC [place] 02/27/20 17:30 03/04/20 17:15 Insulin Human Lispro (HumaLOG INSULIN) See Protocol Table QHS [place] 02/27/20 21:00 03/03/20 21:00 Lactulose (Cephulac) 15 ml DAILY PO 02/28/20 09:00 03/04/20 08:25 Levalbuterol HCl (Xopenex Hfa) 2 puff Q4HP PRN INH SHORTNESS OF BREATH 02/27/20 17:45 Omeprazole (PriLOSEC) 20 mg BID PO 03/02/20 21:00 03/04/20 21:20 Omeprazole (PriLOSEC) 20 mg DAILY PO 02/28/20 09:00 03/02/20 09:55 DC 03/02/20 09:01 Ondansetron HCl (Zofran) 4 mg Q8HP PRN PO NAUSEA OR VOMITING 02/27/20 17:45 Sodium Chloride (Sodium Chloride) 2 gm BID PO 02/28/20 09:00 03/02/20 08:59 DC 03/01/20 20:37 Spironolactone (Aldactone) 12.5 mg DAILY PO 02/28/20 09:00 03/04/20 08:26 Sucralfate (Carafate) 1 gm BID@0730,1730 PO 03/02/20 07:30 03/04/20 17:14 Torsemide (Demadex) 20 mg DAILY PO 02/29/20 09:00 03/04/20 08:27 Tramadol HCl (Ultram) 50 mg DAILY@0800 PO 03/03/20 08:00 03/04/20 08:26 Tramadol HCl (Ultram) 50 mg Q6HP PRN PO MODERATE PAIN (PS 5-7) 02/27/20 17:45 03/03/20 23:18 DEDE ARMSTRONG MD Mar 05, 2020 09:40
--- NOTE | 2020-03-05 11:25 | IPNPDOC ---
Text Note Date of Service The patient was seen on 03/05/20. NOTE Patient was seen and examined this morning. Participating in therapy. Still asking for more fluids and change in diet PHYSICAL EXAMINATION: GENERAL: Comfortable, in no apparent distress. HEENT: Head normocephalic/atraumatic, EOMI, sclera clear. RESPIRATORY: Diminished breath sounds on the right, otherwise clear CARDIOVASCULAR: Heart sounds are more obvious on the right, otherwise regular rate and rhythm ABDOMEN: Soft, nontender, no guarding or rebound tenderness. Normal bowel sounds. Mildly distended MUSCLE SKELETAL: SUNNY wraps in place. NEUROLOGICAL: CN 312 grossly intact PSYCHOLOGICAL: Normal mood and affect LABORATORY DATA: Please see below. ASSESSMENT/PLAN: 84 year-old hypertensive diabetic female with past medical history of chronic liver disease/cirrhosis on lactulose torsemide and Aldactone, not in decompensation, who presents status post hemiarthroplasty for Right hip fracture 02.26.2020 and currently in ARU to regain optimal functional independence. 1. Right femoral neck fracture 2/2 mechanical fall: Went to the OR on 02/26/2020 for a right hemiarthroplasty of the hip. Continue ARU for rehabilitation 2. Right entrapped lung: Chronic. Thoracentesis in 2018 did not re-expand lung. Saturating well at room air 3. Cirrhosis. Continue with torsemide, spironolactone, and lactulose to have 2-3 BMS 4. DM : Continue insulin sliding scale and levemir 5. Pacemaker: Placed for recurrent syncopal episode due to bradycardia. [place] [address] Ravi and Dr[address] Watts. Out patient followup 6. GERD: Continue omeprazole 7. Hyponatremia: Stable around 130. 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 No intervention at this time. DVT ppx: Aspirin 81 mg twice a day for 35 days as per ortho Pain control as per primary Disposition as per primary. VS,Fishbone, I+O VS, Fishbone, I+O Vital Signs Date Time Temp Pulse Resp B/P (MAP) Pulse Ox O2 Delivery O2 Flow Rate FiO2 03/05/20 09:34 20 Room Air 03/05/20 06:00 97.7 89 119/59 (79) 100 03/01/20 08:00 2.0 I&O- Last 24 Hours up to 6 AM 03/05/20 06:00 Intake Total 955 ml Output Total 300 ml Balance 655 ml KT WHITE MD Mar 05, 2020 11:25
[2020-03-05] MEDS: LIDOCAINE 5% (LIDODERM) PATCH TD SCH (12:30)
[2020-03-05 14:00] VITALS: BP 146/82
[2020-03-05 20:00] VITALS: BP 91/53
[2020-03-05] MEDS: traMADol 50 MG TAB PO PRN (21:04)
[2020-03-05] MEDS: **NOTE PATIENT COMMENT** MISC XX SCH (21:07)
[2020-03-05 21:12] VITALS: BP 110/52
[2020-03-06 06:00] VITALS: BP 112/60
[2020-03-06 06:26] VITALS: BP 112/60
[2020-03-06] MEDS: IPRATROPIUM 0.5MG/ALBUTEROL 2.5MG INH SOL UD 3ML (DUONEB) NEB SCH ×4 (07:17→19:51)
[2020-03-06 07:31] LABS: BASO % 0.4 % (0.0-1.0); EOS # 0.1 10^3/uL (0.0-0.5); EOS % 0.9 % (0.0-3.0); HEMATOCRIT 26.8 % (36.0-47.0); HEMOGLOBIN 8.5 g/dl (12.0-15.5); LYMPH # 0.5 10^3/uL (1.5-5.0); LYMPH % 6.3 % (24.0-44.0); MEAN CORPUSCULAR HEMOGLOBIN 32.7 pg (27.0-33.0); MEAN CORPUSCULAR HGB CONC 31.7 g/dl (32.0-36.5); MEAN CORPUSCULAR VOLUME 103.1 fl (80.0-96.0); MONO % 12.6 % (0.0-5.0); NEUTROPHILS # 6.2 10^3/uL (1.5-8.5); NEUTROPHILS % 78.9 % (36.0-66.0); PLATELET COUNT, AUTOMATED 204 10^3/uL (150-450); WHITE BLOOD COUNT 7.8 10^3/uL (4.0-10.0)
[2020-03-06 08:04] LABS: BLOOD UREA NITROGEN 21 MG/DL (7-18); CALCIUM LEVEL 8.9 MG/DL (8.8-10.2); CARBON DIOXIDE LEVEL 35 MEQ/L (21-32); CHLORIDE LEVEL 87 MEQ/L (98-107); CREATININE FOR GFR 0.91 MG/DL (0.55-1.30); GLOMERULAR FILTRATION RATE > 60.0 (>32); GLUCOSE, FASTING 148 MG/DL (70-100); POTASSIUM SERUM 3.6 MEQ/L (3.5-5.1); SODIUM LEVEL 127 MEQ/L (136-145)
[2020-03-06] MEDS: LACTULOSE 20 GM/30 ML SYRUP UD PO SCH (08:42)
[2020-03-06] MEDS: SPIRONOLACTONE 12.5MG PER 1/2 TABLET PO SCH (08:43)
[2020-03-06] MEDS: FIBER-CON 625 MG TAB PO SCH (08:43)
[2020-03-06] MEDS: OMEPRAZOLE 20 MG CAP PO SCH ×2 (08:43→21:49)
[2020-03-06] MEDS: ASPIRIN 81 MG ENTERIC TAB PO SCH ×2 (08:43→21:49)
[2020-03-06] MEDS: LEVEMIR (INSULIN DETEMIR) 1 UNITS/0.01ML SC SCH ×2 (08:44→21:50)
[2020-03-06] MEDS: TORSEMIDE 20 MG TAB PO SCH (08:44)
[2020-03-06] MEDS: SUCRALFATE 1 GM TAB PO SCH ×2 (08:44→17:58)
[2020-03-06] MEDS: HumaLOG INSULIN (NovoLOG) PER UNIT SC SCH ×4 (08:45→21:00)
[2020-03-06] MEDS: LIDOCAINE 5% (LIDODERM) PATCH TD SCH (08:46)
[2020-03-06] MEDS: traMADol 50 MG TAB PO SCH (08:54)
[2020-03-06] MEDS ORDERED: IRON SUCROSE 100MG 5ML VIAL (J1756 PER 1MG) IV SCH (09:00)
--- NOTE | 2020-03-06 11:41 | IPNPDOC ---
Text Note Date of Service The patient was seen on 03/06/20. NOTE Patient was seen and examined this morning. No acute overnight events PHYSICAL EXAMINATION: GENERAL: Comfortable, in no apparent distress. HEENT: Head normocephalic/atraumatic, EOMI, sclera clear. RESPIRATORY: Diminished breath sounds on the right, otherwise clear CARDIOVASCULAR: Heart sounds are more obvious on the right, otherwise regular rate and rhythm ABDOMEN: Soft, nontender, no guarding or rebound tenderness. Normal bowel sounds. Mildly distended MUSCLE SKELETAL: SUNNY wraps in place. NEUROLOGICAL: CN 312 grossly intact PSYCHOLOGICAL: Normal mood and affect LABORATORY DATA: Please see below. ASSESSMENT/PLAN: 84 year-old hypertensive diabetic female with past medical history of chronic liver disease/cirrhosis on lactulose torsemide and Aldactone, not in decompensation, who presents status post hemiarthroplasty for Right hip fracture 02.26.2020 and currently in ARU to regain optimal functional independence. 1. Right femoral neck fracture 2/2 mechanical fall: Went to the OR on 02/26/2020 for a right hemiarthroplasty of the hip. Continue ARU for rehabilitation 2. Right entrapped lung: Chronic. Thoracentesis in 2018 did not re-expand lung. Saturating well at room air 3. Cirrhosis. Continue with torsemide, spironolactone, and lactulose to have 2-3 BMS 4. DM : Continue insulin sliding scale and levemir 5. Pacemaker: Placed for recurrent syncopal episode due to bradycardia. [place] [address] Ravi and Dr[address] Watts. Out patient followup 6. GERD: Continue omeprazole 7. Hyponatremia: Stable around 130. will continue to monitor, likely hype rvolumic hypona as the pts is cirrhotic . No intervention at this time. 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 Stool of occult blood negative. DVT ppx: Aspirin 81 mg twice a day for 35 days as per ortho Pain control as per primary Disposition as per primary. VS,Fishbone, I+O VS, Fishbone, I+O Laboratory Tests 03/06/20 07:01 Vital Signs Date Time Temp Pulse Resp B/P (MAP) Pulse Ox O2 Delivery O2 Flow Rate FiO2 03/06/20 08:54 18 Room Air 03/06/20 06:26 98.0 79 112/60 (77) 97 03/01/20 08:00 2.0 I&O- Last 24 Hours up to 6 AM 03/06/20 06:00 Intake Total 640 ml Output Total 0 ml Balance 640 ml KT HWITE MD Mar 06, 2020 11:41
[2020-03-06 14:00] VITALS: BP 112/53
[2020-03-06] MEDS: TORSEMIDE 10 MG TABLET PO SCH (17:59)
[2020-03-06] MEDS: IRON SUCROSE 100 MG in NS 95 ML IV SCH (18:00)
[2020-03-06 20:15] VITALS: BP 101/61
[2020-03-06] MEDS: traMADol 50 MG TAB PO PRN (21:49)
[2020-03-06] MEDS: **NOTE PATIENT COMMENT** MISC XX SCH (21:50)
[2020-03-07 06:11] VITALS: BP 118/62
[2020-03-07] MEDS: IPRATROPIUM 0.5MG/ALBUTEROL 2.5MG INH SOL UD 3ML (DUONEB) NEB SCH ×4 (07:10→21:08)
[2020-03-07] MEDS: ASPIRIN 81 MG ENTERIC TAB PO SCH ×2 (07:56→21:34)
[2020-03-07] MEDS: SUCRALFATE 1 GM TAB PO SCH ×2 (07:57→17:19)
[2020-03-07] MEDS: OMEPRAZOLE 20 MG CAP PO SCH ×2 (07:57→21:34)
[2020-03-07] MEDS: traMADol 50 MG TAB PO SCH (07:57)
[2020-03-07] MEDS: LACTULOSE 20 GM/30 ML SYRUP UD PO SCH (07:57)
[2020-03-07] MEDS: TORSEMIDE 20 MG TAB PO SCH (07:57)
[2020-03-07] MEDS: FIBER-CON 625 MG TAB PO SCH (07:57)
[2020-03-07] MEDS: SPIRONOLACTONE 12.5MG PER 1/2 TABLET PO SCH (07:58)
[2020-03-07] MEDS: LEVEMIR (INSULIN DETEMIR) 1 UNITS/0.01ML SC SCH ×2 (07:58→21:33)
[2020-03-07] MEDS: HumaLOG INSULIN (NovoLOG) PER UNIT SC SCH ×4 (07:59→21:00)
[2020-03-07] MEDS: LIDOCAINE 5% (LIDODERM) PATCH TD SCH (07:59)
[2020-03-07] MEDS: IRON SUCROSE 100 MG in NS 95 ML IV SCH (07:59)
[2020-03-07 10:24] LABS: CALCIUM LEVEL 9.1 MG/DL (8.8-10.2); CREATININE FOR GFR 1.01 MG/DL (0.55-1.30); GLOMERULAR FILTRATION RATE 55.6 (>32); MAGNESIUM LEVEL 1.9 MG/DL (1.8-2.4); POTASSIUM SERUM 3.6 MEQ/L (3.5-5.1)
--- NOTE | 2020-03-07 11:21 | IPNPDOC ---
PM&R Progress Note DATE OF SERVICE: Mar 06, 2020 Auto Body Estimator Progress Note Subjective: Patient reporting she is very pleased she can drink more water and feels she can better tolerate therapy. REVIEW OF SYSTEMS: The following is a completed review of systems and has been reviewed. Review of systems otherwise unremarkable. PAIN: right hip pain EYES: No recent vision changes. EARS, NOSE, & THROAT: No throat pain, or dysphagia, or rhinorrhea. CARDIOVASCULAR: Denies chest pain or palpitations. PULMONARY: admits shortness of breath (chronic) GASTROINTESTINAL: Denies constipation/diarrhea. 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 PHYSICAL EXAMINATION: VITAL SIGNS: Please see below. GENERAL: Pleasant and cooperative. HEENT: PERRL. Extraocular movements intact. Clear conjunctiva, no adenopathy or thyromegaly. Full cervical range of motion without tenderness or spasm. CARDIOVASCULAR: Regular rate and rhythm. Holosystolic machine murmur bilateral anterior chest szymanski. Palpable pacemaker LUNGS: Clear to auscultation bilaterally. Diminished breath sounds bilateral bases. No wheezes. No rhonchi. no crackles ABDOMEN: Soft, nontender, mildly distended. Positive bowel sounds.no organomegaly. NEUROLOGICAL: Cranial nerves II through XII intact. Sensation intact all 4 extremities. Tone wnl. EXTREMITIES: Full bilateral forward flexion, no tenderness about shoulder girdles. 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 SKIN: Healing right lateral incision dressing, dry, some surrounding erythema noted. bilat LE edema (improving) LABORATORY DATA: Please see below. ASSESSMENT: 84 year-old hypertensive diabetic female with past medical history of chronic liver disease who presents status post cemented hemiarthroplasty for Right hip fracture 02.26.2020. Post operatively has had hypotension, anemia, altered mental status, however is clearing and would benefit from rehabilitation interventions to regain optimal functional independence. PLAN: 1. Rehab- PT/OT advance gait and ADls, strengthen/stretch/maintain ROM all 4 limbs 2. Neuro- Continue Lactulose for chronic metabolic encephalopathy. ADJUNCT BUSINESS INSTRUCTOR orientation, cognitive processing 3. Ortho- THR hip precautions, LAITH, ASA 4. Cardiac- Shifted position of heart,Longstanding Murmur, s/p pacemaker 2007 Dr. Ravi, Dr. Watts for bradycardia, stable cardiac function -HTN c/u BP meds 5. Resp right pleural effusion with hx under-inflated lung from prior thoracentesis 2018 incentive spirometry, monitor for need of oxygen supplementation, RT, possible infection- repeat CXR 03-03-20 showing unchanged right sided pleural effusion which may appear larger on CXR due to underinflation of lung and shifted heart position- patients weight improving -Duonebs ordered 6. Endo- hx of DM, stable on 7. - monitor PVRs 8. GI ppx-concern for possible GI bleed while on ASA which was changed to EC , c/u increased omeprazole BID and sucralfate, continue Lactulose, Spironolactone- FOBT negative 9. Hyponatremia- renal following, patient's diuretics increased and fluid restriction, loosened, recs and interventions appreciated 10. Pain- c./u tramadol, judicious use of tylenol in setting of cirrhosis -lidoderm patch to right knee 9. DVT prophylaxis ASA BID 10. Heme- patient with fluctuating H/H s/p 1 unit rbc 03-03-20 -receiving VEnofer per renal 11. Dispo- 03-12-20 to home Allergies Coded Allergies: No Known Drug Allergies (Verified Allergy, Unknown, 02/25/20) meperidine (Verified Adverse Reaction, Mild, N/V, 02/25/20) Vital Signs Vital Signs Date Time Temp Pulse Resp B/P (MAP) Pulse Ox O2 Delivery O2 Flow Rate FiO2 03/07/20 07:57 20 03/07/20 06:11 98.6 73 118/62 (80) 98 Room Air 99.0 Laboratory Data CBC/BMP Laboratory Tests 03/07/20 09:47 Labs 24H Laboratory Tests 2 03/06/20 16:49: Bedside Glucose (Misc Panel) 149H 03/06/20 20:48: Bedside Glucose (Misc Panel) 219H 03/07/20 06:34: Bedside Glucose (Misc Panel) 159H 03/07/20 09:47: Anion Gap 5L, Glomerular Filtration Rate 55.6, Calcium Level 9.1, Magnesium Level 1.9 Microbiology Microbiology 03/04/20 Stool Occult Blood (THOM) - Final, Complete Current Medications Current Medications Current Medications Medications (Trade) Dose Ordered Sig/Paige Route PRN Reason Start Time Stop Time Status Last Admin Dose Admin Acetaminophen (Tylenol Tab) 650 mg Q6HP PRN PO PAIN / FEVER 02/27/20 17:45 03/02/20 11:08 DC 02/28/20 21:50 Acetaminophen (Tylenol Tab) 650 mg Q6HP PRN PO MILD PAIN, FEVER 03/02/20 11:15 03/02/20 21:12 Albuterol/ Ipratropium (Duoneb (Ipr 0.5mg/Alb 2.5mg)) 3 ml RQID NEB 03/02/20 12:00 03/07/20 11:07 Aspirin (Aspirin Chewable) 81 mg BID PO 02/27/20 21:00 03/02/20 09:57 DC 03/02/20 09:02 Aspirin (Ecotrin) 81 mg BID PO 03/02/20 21:00 03/07/20 07:56 Calcium Polycarbophil (Fiber Con) 1 ea DAILY PO 02/28/20 09:00 03/07/20 07:57 Dextrose (Dextrose 50%) 25 ml ASDIRECTED PRN IV SEE LABEL COMMENTS 02/27/20 17:45 Glucagon (Glucagon) 1 mg ASDIRECTED PRN SC SEE LABEL COMMENTS 02/27/20 17:45 Glucose (Glucose) 16 GM ASDIRECTED PRN PO SEE LABEL COMMENTS 02/27/20 17:45 Home Med (Med Rec Complete!) ASDIRECTED XX 02/27/20 18:00 02/27/20 18:00 DC Insulin Detemir (Levemir Insulin) 10 units BID SC 02/27/20 21:00 03/03/20 09:34 DC 03/03/20 08:35 Insulin Detemir (Levemir Insulin) 10 units QHS SC 03/03/20 21:00 03/06/20 21:50 Insulin Detemir (Levemir Insulin) 15 units DAILY SC 03/04/20 09:00 03/07/20 07:58 Insulin Human Lispro (HumaLOG INSULIN) See Protocol Table AC SC 02/27/20 17:30 03/07/20 07:59 Insulin Human Lispro (HumaLOG INSULIN) See [facility] 02/27/20 21:00 03/03/20 21:00 Iron (Venofer) 100 mg DAILY IV 03/06/20 09:00 03/05/20 19:16 DC Iron 100 mg/ Sodium Chloride 100 ml @ 100 mls/hr Q24H IV 03/06/20 09:00 03/08/20 09:59 03/07/20 07:59 Lactulose (Cephulac) 15 ml DAILY PO 02/28/20 09:00 03/07/20 07:57 Levalbuterol HCl (Xopenex Hfa) 2 puff Q4HP PRN INH SHORTNESS OF BREATH 02/27/20 17:45 Lidocaine (Lidoderm Patch) 1 patch DAILY TD 03/05/20 09:00 03/07/20 07:59 Non-Formulary Medication ( See Comment Field Below ) REMOVE LIDODERM PATCH DAILY@21 XX 03/05/20 21:00 03/06/20 21:50 Omeprazole (PriLOSEC) 20 mg BID PO 03/02/20 21:00 03/07/20 07:57 Omeprazole (PriLOSEC) 20 mg DAILY PO 02/28/20 09:00 03/02/20 09:55 DC 03/02/20 09:01 Ondansetron HCl (Zofran) 4 mg Q8HP PRN PO NAUSEA OR VOMITING 02/27/20 17:45 Sodium Chloride (Sodium Chloride) 2 gm BID PO 02/28/20 09:00 03/02/20 08:59 DC 03/01/20 20:37 Spironolactone (Aldactone) 12.5 mg DAILY PO 02/28/20 09:00 03/05/20 19:02 DC 03/05/20 09:34 Spironolactone (Aldactone) 25 mg DAILY PO 03/06/20 09:00 03/07/20 07:58 Sucralfate (Carafate) 1 gm BID@0730,1730 PO 03/02/20 07:30 03/07/20 07:57 Torsemide (Demadex) 10 mg DAILY@1700 PO 03/06/20 17:00 03/06/20 17:59 Torsemide (Demadex) 20 mg DAILY PO 02/29/20 09:00 03/07/20 07:57 Tramadol HCl (Ultram) 50 mg DAILY@0800 PO 03/03/20 08:00 03/07/20 07:57 Tramadol HCl (Ultram) 50 mg Q6HP PRN PO MODERATE PAIN (PS 5-7) 02/27/20 17:45 03/06/20 21:49 DEDE ARMSTRONG MD Mar 07, 2020 11:21
[2020-03-07 14:00] VITALS: BP 102/56
[2020-03-07] MEDS: TORSEMIDE 10 MG TABLET PO SCH (17:19)
--- NOTE | 2020-03-07 19:48 | IPN ---
PROGRESS NOTE DATE: 03/07/2020 SUBJECTIVE: Ms. Cabello is seen this morning on her bedside. She has been admitted to acute rehabilitation following surgery for her right hip fracture. She has also significant peripheral edema and hyponatremia due to which nephrology service has been following. The patient reports feeling weak and wants to be in the bed. She is currently sitting in the recliner chair with her legs elevated. PHYSICAL EXAMINATION: Temperature 98.6 degrees Fahrenheit, heart rate 72 per minute and respiratory rate 18 per minute Blood pressure 118/62 mmHg and oxygen saturation 98% on room air. Head is atraumatic. Neck supple and jugular venous distention (JVD) minimally elevated. Heart sounds are regular and lung sounds slightly diminished at the bases. Abdomen is soft and nontender and bowel sounds are normal. Extremities without any cyanosis or clubbing. Her right lower extremity is wrapped in the Srikanth bandage. Adolfo lower extremity has 2+ edema. Neurologically, she is awake and grossly intact. LABORATORY: Today's labs show sodium 127, potassium 3.6, Co2 35, BUN 20 and creatinine 1.0, glucose 150 and calcium 9.1. A BNP level yesterday was only 542. PROBLEMS: 1. Hyponatremia and sodium level is essentially unchanged over the last 24 hours. At present, we will continue with diuretic and see how she does. 2. Hypovolemia. Her volume status is clinically decompensated with peripheral edema, but her lungs sound clear. She is oxygenating at 98% on room air. She is currently on oral diuretics an we will monitor her renal function and volume status on a daily basis. 3. Anemia. Her anemia is stable and does not need any urgent intervention. 4. Status post right hip fracture. She is currently getting acute rehabilitation.
[2020-03-07 20:15] VITALS: BP 109/53
[2020-03-07] MEDS: **NOTE PATIENT COMMENT** MISC XX SCH (21:33)
[2020-03-07] MEDS: traMADol 50 MG TAB PO PRN (21:34)
[2020-03-08 06:00] VITALS: BP 104/55
[2020-03-08] MEDS: IPRATROPIUM 0.5MG/ALBUTEROL 2.5MG INH SOL UD 3ML (DUONEB) NEB SCH ×4 (07:14→19:32)
[2020-03-08] MEDS: LIDOCAINE 5% (LIDODERM) PATCH TD SCH (09:00)
[2020-03-08] MEDS: SUCRALFATE 1 GM TAB PO SCH ×2 (09:01→17:46)
[2020-03-08] MEDS: IRON SUCROSE 100 MG in NS 95 ML IV SCH (09:01)
[2020-03-08] MEDS: TORSEMIDE 20 MG TAB PO SCH (09:01)
[2020-03-08] MEDS: traMADol 50 MG TAB PO SCH (09:02)
[2020-03-08] MEDS: FIBER-CON 625 MG TAB PO SCH (09:02)
[2020-03-08] MEDS: OMEPRAZOLE 20 MG CAP PO SCH ×2 (09:02→21:11)
[2020-03-08] MEDS: SPIRONOLACTONE 12.5MG PER 1/2 TABLET PO SCH (09:02)
[2020-03-08] MEDS: ASPIRIN 81 MG ENTERIC TAB PO SCH ×2 (09:02→21:11)
[2020-03-08] MEDS: LEVEMIR (INSULIN DETEMIR) 1 UNITS/0.01ML SC SCH ×2 (09:03→21:12)
[2020-03-08] MEDS: LACTULOSE 20 GM/30 ML SYRUP UD PO SCH (09:03)
[2020-03-08] MEDS: HumaLOG INSULIN (NovoLOG) PER UNIT SC SCH ×4 (09:03→21:00)
[2020-03-08 14:00] VITALS: BP 114/63
[2020-03-08] MEDS: TORSEMIDE 10 MG TABLET PO SCH (17:46)
[2020-03-08 20:00] VITALS: BP 111/59
--- NOTE | 2020-03-08 20:45 | IPN ---
PROGRESS NOTE DATE: 03/08/2020 SUBJECTIVE: Mrs. Cabello seen this morning on her bedside. She is lying in the bed at present, comfortably and denies any dyspnea or chest pain. She does have some lower extremity edema, which is essentially unchanged. She has more swelling on her right leg following her surgery for right hip fracture. She has a bruised right knee, where she has a dressing. She denies any fever or chills. PHYSICAL EXAMINATION: VITALS: Temperature 97.5 degrees Fahrenheit, heart rate 88 per minute, respiratory rate 20 per minute, blood pressure 104/55 mmHg and oxygen saturation 99% on room air. HEENT: Head is atraumatic. Neck is supple. JVD is about 7 to 8 cm above sternal angle. HEART: Heart sounds are irregular in rhythm. LUNGS: Clear to auscultation. ABDOMEN: Soft and nontender. Bowel sounds are normal. EXTREMITIES: Without any cyanosis or clubbing. Right knee is bruised and right thigh and leg are swollen. Surgical dressing on right hip is intact. Left leg has only 1+ edema. NEUROLOGIC: She is awake, alert and oriented x3. LABORATORY DATA: She did not have any new labs done today. Yesterday, her sodium level was 127, BUN 20, creatinine 1.0. PROBLEMS: 1. Hyponatremia: Electrolytes will be checked again tomorrow. At present, we will continue to diurese her due to leg edema. 2. Congestive heart failure: Most likely her leg edema is related to congestive heart failure. Right leg has disproportionately more swelling due to the fracture and surgery. Will continue with current diuretic dose and recheck her electrolytes and kidney function tomorrow. 3. Acute on chronic kidney disease: She has mild chronic kidney disease with slight worsening. We will recheck her renal function tomorrow morning.
[2020-03-08] MEDS: **NOTE PATIENT COMMENT** MISC XX SCH (21:13)
[2020-03-09 05:55] VITALS: BP 125/66
[2020-03-09 08:08] LABS: BASO # 0.1 10^3/uL (0.0-0.2); BASO % 0.4 % (0.0-1.0); EOS # 0.1 10^3/uL (0.0-0.5); EOS % 0.6 % (0.0-3.0); HEMATOCRIT 28.2 % (36.0-47.0); LYMPH # 0.6 10^3/uL (1.5-5.0); MEAN CORPUSCULAR HGB CONC 31.9 g/dl (32.0-36.5); MEAN CORPUSCULAR VOLUME 103.3 fl (80.0-96.0); MONO # 1.1 10^3/uL (0.0-0.8); MONO % 8.8 % (0.0-5.0); NEUTROPHILS % 84.4 % (36.0-66.0); PLATELET COUNT, AUTOMATED 218 10^3/uL (150-450); RED BLOOD COUNT 2.73 10^6/uL (4.00-5.40); WHITE BLOOD COUNT 11.9 10^3/uL (4.0-10.0)
[2020-03-09 08:29] LABS: CALCIUM LEVEL 8.6 MG/DL (8.8-10.2); CREATININE FOR GFR 0.98 MG/DL (0.55-1.30); GLOMERULAR FILTRATION RATE 57.6 (>32); POTASSIUM SERUM 3.5 MEQ/L (3.5-5.1)
[2020-03-09] MEDS: IPRATROPIUM 0.5MG/ALBUTEROL 2.5MG INH SOL UD 3ML (DUONEB) NEB SCH ×4 (08:34→18:49)
[2020-03-09] MEDS: ASPIRIN 81 MG ENTERIC TAB PO SCH ×2 (08:51→21:38)
[2020-03-09] MEDS: SPIRONOLACTONE 12.5MG PER 1/2 TABLET PO SCH (08:51)
[2020-03-09] MEDS: LACTULOSE 20 GM/30 ML SYRUP UD PO SCH (08:51)
[2020-03-09] MEDS: traMADol 50 MG TAB PO SCH (08:52)
[2020-03-09] MEDS: SUCRALFATE 1 GM TAB PO SCH ×2 (08:52→17:13)
[2020-03-09] MEDS: LEVEMIR (INSULIN DETEMIR) 1 UNITS/0.01ML SC SCH ×2 (08:53→21:40)
[2020-03-09] MEDS: HumaLOG INSULIN (NovoLOG) PER UNIT SC SCH ×4 (08:54→21:42)
[2020-03-09] MEDS: OMEPRAZOLE 20 MG CAP PO SCH ×2 (08:54→21:38)
[2020-03-09] MEDS: FIBER-CON 625 MG TAB PO SCH (08:54)
[2020-03-09] MEDS: TORSEMIDE 20 MG TAB PO SCH (08:54)
[2020-03-09] MEDS: LIDOCAINE 5% (LIDODERM) PATCH TD SCH (08:55)
--- NOTE | 2020-03-09 12:49 | IPNPDOC ---
PM&R Progress Note DATE OF SERVICE: Mar 09, 2020 Extra Gang Supervisor Progress Note Subjective: Patient reporting she feels less short of breath at rest, but on exertion it is the same more or less. She reports minimal pain. REVIEW OF SYSTEMS: The following is a completed review of systems and has been reviewed. Review of systems otherwise unremarkable. PAIN: right hip pain EYES: No recent vision changes. EARS, NOSE, & THROAT: No throat pain, or dysphagia, or rhinorrhea. CARDIOVASCULAR: Denies chest pain or palpitations. PULMONARY: admits shortness of breath (chronic) GASTROINTESTINAL: Denies constipation/diarrhea. 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 PHYSICAL EXAMINATION: VITAL SIGNS: Please see below. GENERAL: Pleasant and cooperative. HEENT: PERRL. Extraocular movements intact. Clear conjunctiva, no adenopathy or thyromegaly. Full cervical range of motion without tenderness or spasm. CARDIOVASCULAR: Regular rate and rhythm. Holosystolic machine murmur bilateral anterior chest szymanski. Palpable pacemaker LUNGS: Clear to auscultation bilaterally. Diminished breath sounds bilateral bases. No wheezes. No rhonchi. no crackles ABDOMEN: Soft, nontender, mildly distended. Positive bowel sounds.no organomegaly. NEUROLOGICAL: Cranial nerves II through XII intact. Sensation intact all 4 extremities. Tone wnl. EXTREMITIES: Full bilateral forward flexion, no tenderness about shoulder girdles. healing anterior foreleg abrasions, 5 /5 bilateral comb tender, elbow flexion, unable to fully test knee extension, 5/5 foot dorsiflexion, plantar flexion. SKIN: Healing right lateral incision dressing, dry, some surrounding erythema noted. bilat LE edema (improving) LABORATORY DATA: Please see below. ASSESSMENT: 84 year-old hypertensive diabetic female with past medical history of chronic liver disease who presents status post cemented hemiarthroplasty for Right hip fracture 02.26.2020. Post operatively has had hypotension, anemia, altered mental status, however is clearing and would benefit from rehabilitation interventions to regain optimal functional independence. PLAN: 1. Rehab- PT/OT advance gait and ADls, strengthen/stretch/maintain ROM all 4 limbs 2. Neuro- Continue Lactulose for chronic metabolic encephalopathy. 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 Ortho- THR hip precautions, LAITH, ASA 4. Cardiac- Shifted position of heart,Longstanding Murmur, s/p pacemaker 2008 Dr. Ravi, Dr. Watts for bradycardia, stable cardiac function -HTN c/u BP meds 5. Resp right pleural effusion with hx under-inflated lung from prior thoracentesis 2018 incentive spirometry, monitor for need of oxygen supp lementation, RT, possible infection- repeat CXR 03-03-20 showing unchanged right sided pleural effusion which may appear larger on CXR due to underinflation of lung and shifted heart position- patients weight improving -Duonebs ordered 6. Endo- hx of DM, stable on 7. - monitor PVRs 8. GI ppx-concern for possible GI bleed while on ASA which was changed to EC , c/u increased omeprazole BID and sucralfate, continue Lactulose, Spironolactone- FOBT negative 9. Hyponatremia- renal following, patient's diuretics increased and fluid restriction, loosened, recs and interventions appreciated 10. Pain- c./u tramadol, judicious use of tylenol in setting of cirrhosis -lidoderm patch to right knee 9. DVT prophylaxis ASA BID 10. Heme- patient with fluctuating H/H s/p 1 unit rbc 03-03-20 -s/p VEnofer per renal 11. Dispo- 03-12-20 to home, patient may need more time as not independent yet Allergies Coded Allergies: No Known Drug Allergies (Verified Allergy, Unknown, 02/25/20) meperidine (Verified Adverse Reaction, Mild, N/V, 02/25/20) Vital Signs Vital Signs Date Time Temp Pulse Resp B/P (MAP) Pulse Ox O2 Delivery O2 Flow Rate FiO2 03/09/20 08:52 18 Room Air 03/09/20 05:55 98.1 81 125/66 (85) 97 03/07/20 06:11 99.0 Laboratory Data CBC/BMP Laboratory Tests 03/09/20 07:30 Labs 24H Laboratory Tests 2 03/08/20 16:33: Bedside Glucose (Misc Panel) 200H 03/08/20 19:42: Bedside Glucose (Misc Panel) 201H 03/09/20 04:54: Bedside Glucose (Misc Panel) 176H 03/09/20 07:30: Immature Granulocyte % (Auto) 0.8, Neutrophils (%) (Auto) 84.4H, Lymphocytes (%) (Auto) 5.0L, Monocytes (%) (Auto) 8.8H, Eosinophils (%) (Auto) 0.6, Basophils (%) (Auto) 0.4, Neutrophils # (Auto) 10.0H, Lymphocytes # (Auto) 0.6L, Monocytes # (Auto) 1.1H, Eosinophils # (Auto) 0.1, Basophils # (Auto) 0.1, Nucleated Red Blood Cells % (auto) 0.2H, Anion Gap 8, Glomerular Filtration Rate 57.6, Calcium Level 8.6L 03/09/20 11:11: Bedside Glucose (Misc Panel) 186H Microbiology Microbiology 03/04/20 Stool Occult Blood (THOM) - Final, Complete Current Medications Current Medications Current Medications Medications (Trade) Dose Ordered Sig/Paige Route PRN Reason Start Time Stop Time Status Last Admin Dose Admin Acetaminophen (Tylenol Tab) 650 mg Q6HP PRN PO PAIN / FEVER 02/27/20 17:45 03/02/20 11:08 DC 02/28/20 21:50 Acetaminophen (Tylenol Tab) 650 mg Q6HP PRN PO MILD PAIN, FEVER 03/02/20 11:15 03/02/20 21:12 Albuterol/ Ipratropium (Duoneb (Ipr 0.5mg/Alb 2.5mg)) 3 ml RQID NEB 03/02/20 12:00 03/09/20 11:32 Aspirin (Aspirin Chewable) 81 mg BID PO 02/27/20 21:00 03/02/20 09:57 DC 03/02/20 09:02 Aspirin (Ecotrin) 81 mg BID PO 03/02/20 21:00 03/09/20 08:51 Calcium Polycarbophil (Fiber Con) 1 ea DAILY PO 02/28/20 09:00 03/09/20 08:54 Dextrose (Dextrose 50%) 25 ml ASDIRECTED PRN IV SEE LABEL COMMENTS 02/27/20 17:45 Glucagon (Glucagon) 1 mg ASDIRECTED PRN SC SEE LABEL COMMENTS 02/27/20 17:45 Glucose (Glucose) 16 GM ASDIRECTED PRN PO SEE LABEL COMMENTS 02/27/20 17:45 Home Med (Med Rec Complete!) ASDIRECTED XX 02/27/20 18:00 02/27/20 18:00 DC Insulin Detemir (Levemir Insulin) 10 units BID SC 02/27/20 21:00 03/03/20 09:34 DC 03/03/20 08:35 Insulin Detemir (Levemir Insulin) 10 units QHS SC 03/03/20 21:00 03/08/20 21:12 Insulin Detemir (Levemir Insulin) 15 units DAILY SC 03/04/20 09:00 03/09/20 08:53 Insulin Human Lispro (HumaLOG INSULIN) See Protocol Table AC SC 02/27/20 17:30 03/09/20 12:43 Insulin Human Lispro (HumaLOG INSULIN) See Protocol Table QHS SC 02/27/20 21:00 03/03/20 21:00 Iron (Venofer) 100 mg DAILY IV 03/06/20 09:00 03/05/20 19:16 DC Iron 100 mg/ Sodium Chloride 100 ml @ 100 mls/hr Q24H IV 03/06/20 09:00 03/08/20 09:59 DC 03/08/20 09:01 Lactulose (Cephulac) 15 ml DAILY PO 02/28/20 09:00 03/09/20 08:51 Levalbuterol HCl (Xopenex Hfa) 2 puff Q4HP PRN INH SHORTNESS OF BREATH 02/27/20 17:45 Lidocaine (Lidoderm Patch) 1 patch DAILY TD 03/05/20 09:00 03/09/20 08:55 Non-Formulary Medication ( See Comment Field Below ) REMOVE LIDODERM PATCH DAILY@21 XX 03/05/20 21:00 03/08/20 21:13 Omeprazole (PriLOSEC) 20 mg BID PO 03/02/20 21:00 03/09/20 08:54 Omeprazole (PriLOSEC) 20 mg DAILY PO 02/28/20 09:00 03/02/20 09:55 DC 03/02/20 09:01 Ondansetron HCl (Zofran) 4 mg Q8HP PRN PO NAUSEA OR VOMITING 02/27/20 17:45 Sodium Chloride (Sodium Chloride) 2 gm BID PO 02/28/20 09:00 03/02/20 08:59 DC 03/01/20 20:37 Spironolactone (Aldactone) 12.5 mg DAILY PO 02/28/20 09:00 03/05/20 19:02 DC 03/05/20 09:34 Spironolactone (Aldactone) 25 mg DAILY PO 03/06/20 09:00 03/09/20 08:56 MA 03/09/20 08:51 Spironolactone (Aldactone) 50 mg DAILY PO 03/10/20 09:00 Sucralfate (Carafate) 1 gm BID@0730,1730 PO 03/02/20 07:30 03/09/20 08:52 Torsemide (Demadex) 10 mg DAILY@1700 PO 03/06/20 17:00 03/09/20 08:56 MA 03/08/20 17:46 Torsemide (Demadex) 20 mg DAILY PO 02/29/20 09:00 03/09/20 08:56 MA 03/09/20 08:54 Torsemide (Demadex) 40 mg DAILY PO 03/10/20 09:00 Tramadol HCl (Ultram) 50 mg DAILY@0800 PO 03/03/20 08:00 03/09/20 08:52 Tramadol HCl (Ultram) 50 mg Q6HP PRN PO MODERATE PAIN (PS 5-7) 02/27/20 17:45 03/07/20 21:34 DEDE ARMSTRONG MD Mar 09, 2020 12:49
[2020-03-09] MEDS ORDERED: POTASSIUM CHLORIDE 10 MEQ SR TABLET PO ONE (13:00)
--- NOTE | 2020-03-09 13:11 | IPN ---
PROGRESS NOTE DATE: 03/09/2020 SUBJECTIVE: Mrs. Cabello is seen this morning at her bedside. She reports feeling weak and short of breath on exertion. She also has a complaint of constipation but denies any dysuria or hematuria. She is currently in acute rehab following surgery for her fractured right hip. She has significant edema on her lower extremities and also has hyponatremia. PHYSICAL EXAMINATION: VITAL SIGNS: Temperature 98.1 degrees Fahrenheit, heart rate 80 per minute, respiratory rate 18 per minute. Blood pressure 125/66 mmHg and oxygen saturation 97% on room air. HEAD AND NECK: Head is atraumatic. Neck is supple and JVD is about 7 to 8 cm above sternal angle. LUNGS: A few basilar rales. HEART: Heart sounds are regular and without epicardial friction rub. ABDOMEN: Soft and nontender and bowel sounds are present. EXTREMITIES: Without any cyanosis or clubbing. The right leg/hip area dressing is intact. She has edema on both legs, at least 2+. NEUROLOGIC: She is awake, alert and oriented x3. LABORATORY DATA: Today's labs showed a WBC count of 11.9, hemoglobin 9.0 and hematocrit 28.2. Platelets are 218,000. Sodium 127, potassium 3.5, CO2 33, chloride 86, BUN 16 and creatinine 0.98, glucose 194 and calcium 8.6. PROBLEMS: 1. Congestive heart failure, volume status remains decompensated. I am increasing her furosemide dose to 40 mg daily and spironolactone 50 mg daily. She should continue with restricted fluid intake. 2. Hyponatremia, this is related to congestive heart failure and inability to follow fluid restriction. Will continue with diuretics and hope to correct her volume status over the next few days. 3. Hypokalemia, the potassium level is borderline and spironolactone dose is being increased to 50 mg daily. I will also give her one dose of potassium chloride 20 mEq today. In fact, I am going to put her on twice a day potassium chloride for now until her potassium level improves. 4. Constipation. Patient reports constipation but did have a small bowel movement today. She has received some bowel care. She can probably benefit from Senokot.
[2020-03-09 14:00] VITALS: BP 115/69
[2020-03-09 20:00] VITALS: BP 117/57
[2020-03-09] MEDS: **NOTE PATIENT COMMENT** MISC XX SCH (21:39)
[2020-03-09] MEDS: POTASSIUM CHLORIDE 10 MEQ SR TABLET PO SCH (21:39)
--- NOTE | 2020-03-10 04:58 | CR ---
CONSULTATION DATE: 03/05/2020 REQUESTING PHYSICIAN: Parvin Doherty D.O. CONSULTING PHYSICIAN: Miranda Castelan DO REASON FOR CONSULTATION: Diuretic management in this patient with chronic diastolic congestive heart failure. HISTORY OF PRESENT ILLNESS: Lindsay Cabello is an 84-year-old female with a past medical history of cirrhosis, Type 2 diabetes mellitus, bradycardia status post pacemaker and chronic diastolic congestive heart failure and other comorbid conditions mentioned below. The patient is an admit to the acute rehabilitation unit status post right hip fracture with cemented hemiarthroplasty on February 26, 2020. She is on a 1.8 liter fluid restriction. She has bilateral leg edema. She is on chronic diuretic therapy with torsemide and spirolactone and nephrology evaluation was requested for help in the management of her diuretics given her decompensated heart failure and optimization of fluid status while she is undergoing rehabilitation. PAST MEDICAL HISTORY: 1. Insulin dependent diabetes mellitus Type 2. 2. GERD. 3. Hypertension. 4. Diastolic congestive heart failure. 5. History of chronic liver disease with hepatic encephalopathy. 6. Chronic under-expansion of the right lung status post thoracentesis in 2018. 7. Cardio dextrorotation. 8. Status post right hip fracture with cemented hemiarthroplasty. 9. Pacemaker. 10.Asthma. 11.Dyslipidemia. 12.Anemia. 13.Aortic stenosis. PAST SURGICAL HISTORY: 1. Cemented hemiarthroplasty thoracentesis. 2. Pacemaker. 3. Hysterectomy. 4. Appendectomy. 5. Cholecystectomy. 6. Tonsillectomy. ALLERGIES: Meperidine. FAMILY HISTORY: No family history of kidney failure requiring dialysis. SOCIAL HISTORY: Remote former smoker, no alcohol. No drug use. REVIEW OF SYSTEMS: Constitutional: Denies fevers or chills. Eyes: Denies recent vision changes or tearing. ENT: Denies throat pain or dysphagia. Cardiac: Has a history of diastolic congestive heart failure, reports leg edema. Denies chest pain or palpitations. Pulmonary: Reports dyspnea with exertion. Denies hemoptysis. Gastrointestinal: Denies constipation or diarrhea. Musculoskeletal: Reports hip pain status post hemiarthroplasty. Neurologic: A history of encephalopathy and altered mental status. Hematologic: Anemia. Denies anticoagulant use. Skin: Healing right hip incision. Denies pruritus. Psychiatric: Cognitive processing issues. Denies anxiety or depression. Endocrine: Diabetes and no reported thyroid issues. PHYSICAL EXAMINATION: VITAL SIGNS: Temperature 98.7, pulse 85, respiratory rate 22, blood pressure 146/82, saturating 94 to 96% on room air. GENERAL: The patient is seen sitting in the chair in the rehabilitation unit. Awake, alert, oriented to person and place and in no apparent distress. NECK: Supple. Jugular veins are mildly elevated. HEART: Heart sounds are regular and there is 2+ leg edema of the left lower extremity. The right lower extremity is wrapped in bandages. LUNGS: Lung sounds are diminished on the right and clearer on the left. ABDOMEN: Soft and nontender. There are bowel sounds. EXTREMITIES: The right lower extremity is wrapped in bandages. The left lower extremity has 2+ edema. NEUROLOGIC: She is oriented to person, place and situation. SKIN: Warm and dry. LABORATORY DATA: White count 7.6, hemoglobin 9.1, platelets are 210,000. Sodium 132, potassium 3.9, bicarbonate 34, BUN 24, creatinine 0.9. Stool occult blood is negative. Iron is 36, T-sat 18.5, ferritin 152. Chest x-ray March 04: Volume loss in the right hemithorax, right pleural effusion or right pleural thickening, volume loss of the right hemithorax with shift of mediastinum to the right which is a chronic finding. INPATIENT MEDICATIONS: Lidoderm patch, Tylenol 6 q. hourly p.r.n., DuoNeb, aspirin 81 mg p.o. b.i.d., FiberCon one daily, insulin, Lactulose 15 ml p.o. daily, omeprazole 20 mg p.o. b.i.d., Zofran p.r.n., Spironolactone 12.5 mg p.o. daily, Carafate 1 gram p.o. b.i.d., torsemide 20 mg p.o. daily, tramadol q. 6 hourly p.r.n. PROBLEMS: 1. Decompensated chronic diastolic congestive heart failure. Echocardiogram from February 26, 2020 reviewed with preserved left ventricular ejection fraction and Grade 1 diastolic dysfunction. Patient has fluid overload with significant leg edema although she is not requiring any supplemental oxygen. The patient makes it clear to me that she does not want to tighten her fluid restriction. We will increase the diuretics, torsemide is increased to 20 mg in the morning and 10 mg in the afternoon and spironolactone is increased to 25 mg daily. I have advised her to use ice chips to try and cut back on her fluid intake. 2. Hypervolemic hyponatremia. It is due to decompensated heart failure fluid overload and probably also related to her cirrhosis. She has no ascites seen on recent abdominal imaging. Her diuretics are being up-titrated although I am keeping her on oral diuretic and not changing to IV. She should continue on a moderate fluid restriction and low sodium diet. 3. Anemia related to iron deficiency. She was transfused 1 unit of packed red blood cells two days ago and hemoglobin has come up from 7.8 to 9.1. Iron stores show iron deficiency and I have ordered three doses of IV Venofer 100 mg once daily for the next three days. Her stool occult blood was negative. 4. Chronic liver disease, no ascites seen on recent imaging. Patient has a cirrhotic liver. She is on daily Lactulose for a history of encephalopathy. Her albumin is less than 2. If she does not respond to increased oral diuretic we will give her albumin infusion to help correct the volume status. She likely has some third spacing given low oncotic pressure. Thank you for involving me in the care of Ms. Cabello. I will be happy to follow her along with you.
[2020-03-10 05:57] VITALS: BP 120/58
[2020-03-10] MEDS: POTASSIUM CHLORIDE 10 MEQ SR TABLET PO SCH ×2 (08:55→22:07)
[2020-03-10] MEDS: SUCRALFATE 1 GM TAB PO SCH ×2 (08:56→17:02)
[2020-03-10] MEDS: ASPIRIN 81 MG ENTERIC TAB PO SCH ×2 (08:56→22:07)
[2020-03-10] MEDS: SPIRONOLACTONE 50 MG TAB PO SCH (08:56)
[2020-03-10] MEDS: IPRATROPIUM 0.5MG/ALBUTEROL 2.5MG INH SOL UD 3ML (DUONEB) NEB SCH ×4 (08:56→18:04)
[2020-03-10] MEDS: traMADol 50 MG TAB PO SCH (08:56)
[2020-03-10] MEDS: FIBER-CON 625 MG TAB PO SCH (08:56)
[2020-03-10] MEDS: TORSEMIDE 20 MG TAB PO SCH (08:57)
[2020-03-10] MEDS: HumaLOG INSULIN (NovoLOG) PER UNIT SC SCH ×4 (08:57→22:06)
[2020-03-10] MEDS: OMEPRAZOLE 20 MG CAP PO SCH ×2 (08:58→22:07)
[2020-03-10] MEDS: LEVEMIR (INSULIN DETEMIR) 1 UNITS/0.01ML SC SCH ×2 (08:58→22:07)
[2020-03-10] MEDS: LIDOCAINE 5% (LIDODERM) PATCH TD SCH (08:58)
[2020-03-10] MEDS: LACTULOSE 20 GM/30 ML SYRUP UD PO SCH (08:58)
--- NOTE | 2020-03-10 12:50 | IPNPDOC ---
PM&R Progress Note DATE OF SERVICE: Mar 10, 2020 Driver License Examiner Progress Note Subjective: Patient seen eating lunch stating she feels well and understands she has more wok to do in order to be safe for a discahrge home. The option of short-term rehab was explained to her and she was open to the idea. REVIEW OF SYSTEMS: The following is a completed review of systems and has been reviewed. Review of systems otherwise unremarkable. PAIN: right hip pain EYES: No recent vision changes. EARS, NOSE, & THROAT: No throat pain, or dysphagia, or rhinorrhea. CARDIOVASCULAR: Denies chest pain or palpitations. PULMONARY: admits shortness of breath (chronic) GASTROINTESTINAL: Denies constipation/diarrhea. 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 PHYSICAL EXAMINATION: VITAL SIGNS: Please see below. GENERAL: Pleasant and cooperative. HEENT: PERRL. Extraocular movements intact. Clear conjunctiva, no adenopathy or thyromegaly. Full cervical range of motion without tenderness or spasm. CARDIOVASCULAR: Regular rate and rhythm. Holosystolic machine murmur bilateral anterior chest szymanski. Palpable pacemaker LUNGS: Clear to auscultation bilaterally. Diminished breath sounds bilateral bases. No wheezes. No rhonchi. no crackles ABDOMEN: Soft, nontender, mildly distended. Positive bowel sounds.no organomegaly. NEUROLOGICAL: Cranial nerves II through XII intact. Sensation intact all 4 extremities. Tone wnl. EXTREMITIES: Full bilateral forward flexion, no tenderness about shoulder girdles. healing anterior foreleg abrasions, 5 /5 bilateral transfer driver, elbow flexion, unable to fully test knee extension, 5/5 foot dorsiflexion, plantar flexion. SKIN: Healing right lateral incision dressing, dry, some surrounding erythema noted. bilat LE edema (improving) ASSESSMENT: 84 year-old hypertensive diabetic female with past medical history of chronic liver disease who presents status post cemented hemiarthroplasty for Right hip fracture 02.26.2020. Post operatively has had hypotension, anemia, altered mental status, however is clearing and would benefit from rehabilitation interventions to regain optimal functional independence. PLAN: 1. Rehab- PT/OT advance gait and ADls, strengthen/stretch/maintain ROM all 4 limbs 2. Neuro- Continue Lactulose for chronic metabolic encephalopathy. GREEN BUILDING DESIGN SPECIALIST orientation, cognitive processing 3. Ortho- THR hip precautions, LAITH, ASA 4. Cardiac- Shifted position of heart,Longstanding Murmur, s/p pacemaker 2007 Dr. Ravi, Dr. Watts for bradycardia, stable cardiac function -HTN c/u BP meds 5. Resp right pleural effusion with hx under-inflated lung from prior thoracentesis 2018 incentive spirometry, monitor for need of oxygen supplementation, RT, possible infection- repeat CXR 03-03-20 showing unchanged right sided pleural effusion which may appear larger on CXR due to underinflation of lung and shifted heart position- patients weight improving -Duonebs ordered 6. Endo- hx of DM, stable on 7. - monitor PVRs 8. GI ppx-concern for possible GI bleed while on ASA which was changed to EC , c/u increased omeprazole BID and sucralfate, continue Lactulose, Spironolactone- FOBT negative 9. Hyponatremia- renal following, patient's diuretics increased and fluid restriction, loosened, recs and interventions appreciated 10. Pain- c./u tramadol, judicious use of tylenol in setting of cirrhosis -lidoderm patch to right knee 9. DVT prophylaxis ASA BID 10. Heme- patient with fluctuating H/H s/p 1 unit rbc 03-03-20 -s/p VEnofer per renal 11. Dispo- 03-12-20 to home, patient may need more time as not independent yet Allergies Coded Allergies: No Known Drug Allergies (Verified Allergy, Unknown, 02/25/20) meperidine (Verified Adverse Reaction, Mild, N/V, 02/25/20) Vital Signs Vital Signs Date Time Temp Pulse Resp B/P (MAP) Pulse Ox O2 Delivery O2 Flow Rate FiO2 03/10/20 08:56 19 Room Air 03/10/20 05:57 97.8 82 120/58 (78) 100 03/07/20 06:11 99.0 Laboratory Data Labs 24H Laboratory Tests 2 03/09/20 16:50: Bedside Glucose (Misc Panel) 288H 03/09/20 20:11: Bedside Glucose (Misc Panel) 323H 03/10/20 04:59: Bedside Glucose (Misc Panel) 219H 03/10/20 11:46: Bedside Glucose (Misc Panel) 231H Microbiology Microbiology 03/04/20 Stool Occult Blood (THOM) - Final, Complete Current Medications Current Medications Current Medications Medications (Trade) Dose Ordered Sig/Paige Route PRN Reason Start Time Stop Time Status Last Admin Dose Admin Acetaminophen (Tylenol Tab) 650 mg Q6HP PRN PO PAIN / FEVER 02/27/20 17:45 03/02/20 11:08 DC 02/28/20 21:50 Acetaminophen (Tylenol Tab) 650 mg Q6HP PRN PO MILD PAIN, FEVER 03/02/20 11:15 03/02/20 21:12 Albuterol/ Ipratropium (Duoneb (Ipr 0.5mg/Alb 2.5mg)) 3 ml RQID NEB 03/02/20 12:00 03/10/20 12:43 Aspirin (Aspirin Chewable) 81 mg BID PO 02/27/20 21:00 03/02/20 09:57 DC 03/02/20 09:02 Aspirin (Ecotrin) 81 mg BID PO 03/02/20 21:00 03/10/20 08:56 Calcium Polycarbophil (Fiber Con) 1 ea DAILY PO 02/28/20 09:00 03/10/20 08:56 Dextrose (Dextrose 50%) 25 ml ASDIRECTED PRN IV SEE LABEL COMMENTS 02/27/20 17:45 Glucagon (Glucagon) 1 mg ASDIRECTED PRN SC SEE LABEL COMMENTS 02/27/20 17:45 Glucose (Glucose) 16 GM ASDIRECTED PRN PO SEE LABEL COMMENTS 02/27/20 17:45 Home Med (Med Rec Complete!) ASDIRECTED XX 02/27/20 18:00 02/27/20 18:00 DC Insulin Detemir (Levemir Insulin) 10 units BID SC 02/27/20 21:00 03/03/20 09:34 DC 03/03/20 08:35 Insulin Detemir (Levemir Insulin) 10 units QHS SC 03/03/20 21:00 03/10/20 08:03 DC 03/09/20 21:40 Insulin Detemir (Levemir Insulin) 15 units DAILY SC 03/04/20 09:00 03/10/20 08:58 Insulin Detemir (Levemir Insulin) 15 units QHS SC 03/10/20 21:00 Insulin Human Lispro (HumaLOG INSULIN) See Protocol Table AC SC 02/27/20 17:30 03/10/20 12:43 Insulin Human Lispro (HumaLOG INSULIN) See Protocol Table QHS SC 02/27/20 21:00 03/09/20 21:42 Iron (Venofer) 100 mg DAILY IV 03/06/20 09:00 03/05/20 19:16 DC Iron 100 mg/ Sodium Chloride 100 ml @ 100 mls/hr Q24H IV 03/06/20 09:00 03/08/20 09:59 DC 03/08/20 09:01 Lactulose (Cephulac) 15 ml DAILY PO 02/28/20 09:00 03/10/20 08:58 Levalbuterol HCl (Xopenex Hfa) 2 puff Q4HP PRN INH SHORTNESS OF BREATH 02/27/20 17:45 Lidocaine (Lidoderm Patch) 1 patch DAILY TD 03/05/20 09:00 03/10/20 08:58 Non-Formulary Medication ( See Comment Field Below ) REMOVE LIDODERM PATCH DAILY@21 XX 03/05/20 21:00 03/09/20 21:39 Omeprazole (PriLOSEC) 20 mg BID PO 03/02/20 21:00 03/10/20 08:58 Omeprazole (PriLOSEC) 20 mg DAILY PO 02/28/20 09:00 03/02/20 09:55 DC 03/02/20 09:01 Ondansetron HCl (Zofran) 4 mg Q8HP PRN PO NAUSEA OR VOMITING 02/27/20 17:45 Potassium Chloride (Micro-K Extencaps) 10 meq BID PO 03/09/20 21:00 03/10/20 08:55 Sodium Chloride (Sodium Chloride) 2 gm BID PO 02/28/20 09:00 03/02/20 08:59 DC 03/01/20 20:37 Spironolactone (Aldactone) 12.5 mg DAILY PO 02/28/20 09:00 03/05/20 19:02 DC 03/05/20 09:34 Spironolactone (Aldactone) 25 mg DAILY PO 03/06/20 09:00 03/09/20 08:56 DC 03/09/20 08:51 Spironolactone (Aldactone) 50 mg DAILY PO 03/10/20 09:00 03/10/20 08:56 Sucralfate (Carafate) 1 gm BID@0730,1730 PO 03/02/20 07:30 03/10/20 08:56 Torsemide (Demadex) 10 mg DAILY@1700 PO 03/06/20 17:00 03/09/20 08:56 DC 03/08/20 17:46 Torsemide (Demadex) 20 mg DAILY PO 02/29/20 09:00 03/09/20 08:56 DC 03/09/20 08:54 Torsemide (Demadex) 40 mg DAILY PO 03/10/20 09:00 03/10/20 08:57 Tramadol HCl (Ultram) 50 mg DAILY@0800 PO 03/03/20 08:00 03/10/20 08:56 Tramadol HCl (Ultram) 50 mg Q6HP PRN PO MODERATE PAIN (PS 5-7) 02/27/20 17:45 03/07/20 21:34 DEDE ARMSTRONG MD Mar 10, 2020 12:50
[2020-03-10 14:00] VITALS: BP 100/60
--- NOTE | 2020-03-10 19:00 | IPN ---
PROGRESS NOTE DATE: 03/10/2020 SUBJECTIVE: Mrs. Cabello is seen this morning at her bedside. She is lying in the bed currently and denies any new issues. She does get dyspnea on exertion. She has bilateral lower extremity edema. She is currently getting rehab following her right hip surgery for fracture. OBJECTIVE: VITAL SIGNS: Temperature 97.8 degrees Fahrenheit, heart rate 82 per minute, respiratory rate 19 per minute, blood pressure 120/58 mmHg, and oxygen saturation 100% on room air. HEENT: Head is atraumatic. NECK: Supple. JVD is about 7 cm above the sternal angle. HEART: Sounds are regular. LUNGS: Slightly diminished at the bases. ABDOMEN: Soft and nontender. Bowel sounds are normal. EXTREMITIES: Without any cyanosis or clubbing. Both her lower extremities are wrapped in an Srikanth bandage. She does have 2+ edema. NEUROLOGIC: She is awake, alert, and oriented x3. LABORATORY DATA: The patient did not have any new labs done today. PROBLEMS: 1. Hyponatremia. Yesterday her sodium level was stable at 127. We will recheck her electrolytes tomorrow. 2. Hypokalemia. Potassium was 3.5 and she has been given potassium supplement in addition to increased dose of Spironolactone. Electrolytes will be checked again tomorrow morning. 3. Acute on chronic congestive heart failure. Her volume status remains decompensated. She is now on 40 mg of torsemide and 50 Spironolactone once a day. Weight is essentially unchanged. She is trying not to follow any fluid restriction. 4. Anemia. Most likely related to her fractured hip and surgery. She is stable so far. CBC will be checked again tomorrow morning.
[2020-03-10 20:00] VITALS: BP 135/79
[2020-03-10] MEDS ORDERED: SENNA 8.6 MG TAB (SENOKOT) PO ONE (21:00)
[2020-03-10] MEDS: **NOTE PATIENT COMMENT** MISC XX SCH (21:00)
[2020-03-11 06:00] VITALS: BP 139/73
[2020-03-11] MEDS: IPRATROPIUM 0.5MG/ALBUTEROL 2.5MG INH SOL UD 3ML (DUONEB) NEB SCH ×4 (06:02→17:56)
[2020-03-11 06:57] LABS: BASO # 0.1 10^3/uL (0.0-0.2); BASO % 0.6 % (0.0-1.0); EOS # 0.1 10^3/uL (0.0-0.5); EOS % 1.5 % (0.0-3.0); HEMATOCRIT 29.3 % (36.0-47.0); HEMOGLOBIN 9.3 g/dl (12.0-15.5); LYMPH # 0.6 10^3/uL (1.5-5.0); LYMPH % 7.5 % (24.0-44.0); MEAN CORPUSCULAR HEMOGLOBIN 33.9 pg (27.0-33.0); MEAN CORPUSCULAR HGB CONC 31.7 g/dl (32.0-36.5); MEAN CORPUSCULAR VOLUME 106.9 fl (80.0-96.0); MONO # 0.9 10^3/uL (0.0-0.8); MONO % 11.1 % (0.0-5.0); NEUTROPHILS # 6.2 10^3/uL (1.5-8.5); NEUTROPHILS % 78.7 % (36.0-66.0); PLATELET COUNT, AUTOMATED 198 10^3/uL (150-450); RED BLOOD COUNT 2.74 10^6/uL (4.00-5.40); WHITE BLOOD COUNT 7.8 10^3/uL (4.0-10.0)
[2020-03-11 07:21] LABS: CALCIUM LEVEL 9.2 MG/DL (8.8-10.2); CREATININE FOR GFR 1.02 MG/DL (0.55-1.30); POTASSIUM SERUM 3.7 MEQ/L (3.5-5.1)
[2020-03-11] MEDS: LIDOCAINE 5% (LIDODERM) PATCH TD SCH (08:39)
[2020-03-11] MEDS: HumaLOG INSULIN (NovoLOG) PER UNIT SC SCH ×4 (08:39→21:00)
[2020-03-11] MEDS: SPIRONOLACTONE 50 MG TAB PO SCH (08:40)
[2020-03-11] MEDS: LEVEMIR (INSULIN DETEMIR) 1 UNITS/0.01ML SC SCH ×2 (08:40→21:51)
[2020-03-11] MEDS: traMADol 50 MG TAB PO SCH (08:40)
[2020-03-11] MEDS: OMEPRAZOLE 20 MG CAP PO SCH ×2 (08:40→21:49)
[2020-03-11] MEDS: LACTULOSE 20 GM/30 ML SYRUP UD PO SCH (08:40)
[2020-03-11] MEDS: SUCRALFATE 1 GM TAB PO SCH ×2 (08:40→17:55)
[2020-03-11] MEDS: POTASSIUM CHLORIDE 10 MEQ SR TABLET PO SCH ×2 (08:41→21:49)
[2020-03-11] MEDS: ASPIRIN 81 MG ENTERIC TAB PO SCH ×2 (08:41→21:51)
[2020-03-11] MEDS: TORSEMIDE 20 MG TAB PO SCH (08:41)
[2020-03-11] MEDS: FIBER-CON 625 MG TAB PO SCH (08:41)
[2020-03-11] MEDS: ACETAMINOPHEN TAB 650MG DOSE (2X325MG) PO SCH ×2 (13:57→21:50)
[2020-03-11 14:00] VITALS: BP 103/59
--- NOTE | 2020-03-11 15:53 | IPNPDOC ---
PM&R Progress Note DATE OF SERVICE: Mar 11, 2020 Drilling Field Operator Progress Note Subjective: Patient reporting she has pain in her knee and back today and would like to try taking tylenol more regularly. She reports she otherwise is doing well. REVIEW OF SYSTEMS: The following is a completed review of systems and has been reviewed. Review of systems otherwise unremarkable. PAIN: right hip pain EYES: No recent vision changes. EARS, NOSE, & THROAT: No throat pain, or dysphagia, or rhinorrhea. CARDIOVASCULAR: Denies chest pain or palpitations. PULMONARY: admits shortness of breath (chronic) GASTROINTESTINAL: Denies constipation/diarrhea. 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 PHYSICAL EXAMINATION: VITAL SIGNS: Please see below. GENERAL: Pleasant and cooperative. HEENT: PERRL. Extraocular movements intact. Clear conjunctiva, no adenopathy or thyromegaly. Full cervical range of motion without tenderness or spasm. CARDIOVASCULAR: Regular rate and rhythm. Holosystolic machine murmur bilateral anterior chest szymanski. Palpable pacemaker LUNGS: Clear to auscultation bilaterally. Diminished breath sounds bilateral bases. No wheezes. No rhonchi. no crackles ABDOMEN: Soft, nontender, mildly distended. Positive bowel sounds.no organomegaly. NEUROLOGICAL: Cranial nerves II through XII intact. Sensation intact all 4 extr emities. Tone wnl. EXTREMITIES: Full bilateral forward flexion, no tenderness about shoulder girdle s. healing anterior foreleg abrasions, 5 /5 bilateral dog groomer, elbow flexion, unable to fully test knee extension, 5/5 foot dorsiflexion, plantar flexion. SKIN: Healing right lateral incision dressing, dry, some surrounding erythema noted. bilat LE edema (improving) ASSESSMENT: 84 year-old hypertensive diabetic female with past medical history of chronic liver disease who presents status post cemented hemiarthroplasty for Right hip fracture 02.26.2020. Post operatively has had hypotension, anemia, altered mental status, however is clearing and would benefit from rehabilitation interventions to regain optimal functional independence. PLAN: 1. Rehab- PT/OT advance gait and ADls, strengthen/stretch/maintain ROM all 4 limbs 2. Neuro- Continue Lactulose for chronic metabolic encephalopathy. DENTAL OFFICE ASSISTANT orientation, cognitive processing 3. Ortho- THR hip precautions, LAITH, ASA 4. Cardiac- Shifted position of heart,Longstanding Murmur, s/p pacemaker 2008 Dr. Ravi, Dr. Watts for bradycardia, stable cardiac function -HTN c/u BP meds 5. Resp right pleural effusion with hx under-inflated lung from prior thoracentesis 2018 incentive spirometry, monitor for need of oxygen supplementation, RT, possible infection- repeat CXR 03-03-20 showing unchanged right sided pleural effusion which may appear larger on CXR due to underinflation of lung and shifted heart position- patients weight improving -Duonebs ordered 6. Endo- hx of DM, stable on 7. - monitor PVRs 8. GI ppx-concern for possible GI bleed while on ASA which was changed to EC , c/u increased omeprazole BID and sucralfate, continue Lactulose, Spironolactone- FOBT negative 9. Hyponatremia- renal following, patient's diuretics increased and fluid restriction, loosened, recs and interventions appreciated 10. Pain- c./u tramadol, judicious use of tylenol in setting of cirrhosis -lidoderm patch to right knee 9. DVT prophylaxis ASA BID 10. Heme- patient with fluctuating H/H s/p 1 unit rbc 03-03-20-stable -s/p VEnofer per renal 11. Dispo- patient is participating wellin therapy, but will likely need longer period of therapy at short term rehab in order to be able to go home alone safely Allergies Coded Allergies: No Known Drug Allergies (Verified Allergy, Unknown, 02/25/20) meperidine (Verified Adverse Reaction, Mild, N/V, 02/25/20) Vital Signs Vital Signs Date Time Temp Pulse Resp B/P (MAP) Pulse Ox O2 Delivery O2 Flow Rate FiO2 03/11/20 14:00 97.6 97 19 103/59 (74) 95 Room Air 03/07/20 06:11 99.0 Laboratory Data CBC/BMP Laboratory Tests 03/11/20 06:42 Labs 24H Laboratory Tests 2 03/10/20 16:53: Bedside Glucose (Misc Panel) 232H 03/10/20 19:45: Bedside Glucose (Misc Panel) 261H 03/11/20 05:26: Bedside Glucose (Misc Panel) 199H 03/11/20 06:42: Immature Granulocyte % (Auto) 0.6, Neutrophils (%) (Auto) 78.7H, Lymphocytes (%) (Auto) 7.5L, Monocytes (%) (Auto) 11.1H, Eosinophils (%) (Auto) 1.5, Basophils (%) (Auto) 0.6, Neutrophils # (Auto) 6.2, Lymphocytes # (Auto) 0.6L, Monocytes # (Auto) 0.9H, Eosinophils # (Auto) 0.1, Basophils # (Auto) 0.1, Nucleated Red Blood Cells % (auto) 0.0, Anion Gap 5L, Glomerular Filtration Rate 55.0, Calcium Level 9.2 03/11/20 11:36: Bedside Glucose (Misc Panel) 196H Microbiology Microbiology 03/04/20 Stool Occult Blood (THOM) - Final, Complete Current Medications Current Medications Current Medications Medications (Trade) Dose Ordered Sig/Paige Route PRN Reason Start Time Stop Time Status Last Admin Dose Admin Acetaminophen (Tylenol Tab) 650 mg Q6HP PRN PO PAIN / FEVER 02/27/20 17:45 03/02/20 11:08 DC 02/28/20 21:50 Acetaminophen (Tylenol Tab) 650 mg Q6HP PRN PO MILD PAIN, FEVER 03/02/20 11:15 03/11/20 13:15 DC 03/02/20 21:12 Acetaminophen (Tylenol Tab) 650 mg TID PO 03/11/20 13:30 03/11/20 13:57 Albuterol/ Ipratropium (Duoneb (Ipr 0.5mg/Alb 2.5mg)) 3 ml RQID NEB 03/02/20 12:00 03/11/20 14:55 Aspirin (Aspirin Chewable) 81 mg BID PO 02/27/20 21:00 03/02/20 09:57 DC 03/02/20 09:02 Aspirin (Ecotrin) 81 mg BID PO 03/02/20 21:00 03/11/20 08:41 Calcium Polycarbophil (Fiber Con) 1 ea DAILY PO 02/28/20 09:00 03/11/20 08:41 Dextrose (Dextrose 50%) 25 ml ASDIRECTED PRN IV SEE LABEL COMMENTS 02/27/20 17:45 Glucagon (Glucagon) 1 mg ASDIRECTED PRN SC SEE LABEL COMMENTS 02/27/20 17:45 Glucose (Glucose) 16 GM ASDIRECTED PRN PO SEE LABEL COMMENTS 02/27/20 17:45 Home Med (Med Rec Complete!) ASDIRECTED XX 02/27/20 18:00 02/27/20 18:00 DC Insulin Detemir (Levemir Insulin) 10 units BID SC 02/27/20 21:00 03/03/20 09:34 DC 03/03/20 08:35 Insulin Detemir (Levemir Insulin) 10 units QHS SC 03/03/20 21:00 03/10/20 08:03 DC 03/09/20 21:40 Insulin Detemir (Levemir Insulin) 15 units DAILY SC 03/04/20 09:00 03/11/20 08:40 Insulin Detemir (Levemir Insulin) 15 units QHS SC 03/10/20 21:00 03/10/20 22:07 Insulin Human Lispro (HumaLOG INSULIN) See Protocol Table AC TN 02/27/20 17:30 03/11/20 12:25 Insulin Human Lispro (HumaLOG INSULIN) See Protocol Table QHS TN 02/27/20 21:00 03/10/20 22:06 Iron (Venofer) 100 mg DAILY IV 03/06/20 09:00 03/05/20 19:16 DC Iron 100 mg/ Sodium Chloride 100 ml @ 100 mls/hr Q24H IV 03/06/20 09:00 03/08/20 09:59 DC 03/08/20 09:01 Lactulose (Cephulac) 15 ml DAILY PO 02/28/20 09:00 03/11/20 08:40 Levalbuterol HCl (Xopenex Hfa) 2 puff Q4HP PRN INH SHORTNESS OF BREATH 02/27/20 17:45 Lidocaine (Lidoderm Patch) 1 patch DAILY TD 03/05/20 09:00 03/11/20 08:39 Non-Formulary Medication ( See Comment Field Below ) REMOVE LIDODERM PATCH DAILY@21 XX 03/05/20 21:00 03/10/20 21:00 Omeprazole (PriLOSEC) 20 mg BID PO 03/02/20 21:00 03/11/20 08:40 Omeprazole (PriLOSEC) 20 mg DAILY PO 02/28/20 09:00 03/02/20 09:55 DC 03/02/20 09:01 Ondansetron HCl (Zofran) 4 mg Q8HP PRN PO NAUSEA OR VOMITING 02/27/20 17:45 Potassium Chloride (Micro-K Extencaps) 10 meq BID PO 03/09/20 21:00 03/11/20 08:41 Sodium Chloride (Sodium Chloride) 2 gm BID PO 02/28/20 09:00 03/02/20 08:59 DC 03/01/20 20:37 Spironolactone (Aldactone) 12.5 mg DAILY PO 02/28/20 09:00 03/05/20 19:02 DC 03/05/20 09:34 Spironolactone (Aldactone) 25 mg DAILY PO 03/06/20 09:00 03/09/20 08:56 DC 03/09/20 08:51 Spironolactone (Aldactone) 50 mg DAILY PO 03/10/20 09:00 03/11/20 08:40 Sucralfate (Carafate) 1 gm BID@0730,1730 PO 03/02/20 07:30 03/11/20 08:40 Torsemide (Demadex) 10 mg DAILY@1700 PO 03/06/20 17:00 03/09/20 08:56 DC 03/08/20 17:46 Torsemide (Demadex) 20 mg DAILY PO 02/29/20 09:00 03/09/20 08:56 DC 03/09/20 08:54 Torsemide (Demadex) 40 mg DAILY PO 03/10/20 09:00 03/11/20 08:41 Tramadol HCl (Ultram) 50 mg DAILY@0800 PO 03/03/20 08:00 03/11/20 08:40 Tramadol HCl (Ultram) 50 mg Q6HP PRN PO MODERATE PAIN (PS 5-7) 02/27/20 17:45 03/07/20 21:34 DEDE ARMSTRONG MD Mar 11, 2020 15:53
--- NOTE | 2020-03-11 16:36 | IPN ---
NEPHROLOGY PROGRESS NOTE DATE: 03/11/2020 SUBJECTIVE: Ms. Cabello is seen this morning on her bedside. She is currently in the chair and wants to go back to her bed. She reports that physical therapy was hard and she feels very tired now. She is also quite short of breath even sitting in the chair. PHYSICAL EXAMINATION: Temperature 98.2 degrees Fahrenheit, heart rate 95 per minute and respiratory rate 18 per minute. Blood pressure 139/73 mmHg and oxygen saturation 97% on room air. Head: Atraumatic. Neck: Supple and JVD difficult to be assessed sitting upright. Heart: Sounds are tachycardic. Lungs: Few basilar rales. Abdomen: Soft and nontender and bowel sounds are normal. Extremities: Without any cyanosis or clubbing. Lower extremity edema is 2+ bilaterally. Neurologically: She is awake, alert and oriented times 3. LABORATORY DATA: Today's labs show WBC count 7.8, hemoglobin 9.3, hematocrit 29.3. Sodium is up to 130, potassium 3.7, CO2 37, BUN 16, creatinine 1.02, glucose 192 and calcium 9.2. PROBLEMS/PLAN: 1. Hyponatremia: Sodium level is improved to 130 today and we will continue with diuretics. Electrolytes should be checked again tomorrow. 2. Hypokalemia: Potassium level has improved with potassium supplement and spironolactone. Will need to monitor her electrolytes daily and adjust her potassium and spironolactone dose. 3. Congestive heart failure: Volume status is gradually improving. Patient is being advised to restrict her fluid intake in order for her diuretic to work well. She likes to drink more fluids. At present she is responding to diuretic and we will continue to monitor her closely. 4. Anemia: Her anemia is stable and does not need any urgent intervention.
[2020-03-11 20:30] VITALS: BP 122/63
[2020-03-11] MEDS: **NOTE PATIENT COMMENT** MISC XX SCH (21:00)
[2020-03-12] MEDS: IPRATROPIUM 0.5MG/ALBUTEROL 2.5MG INH SOL UD 3ML (DUONEB) NEB SCH ×4 (06:07→19:34)
[2020-03-12] MEDS: LEVEMIR (INSULIN DETEMIR) 1 UNITS/0.01ML SC SCH ×2 (08:09→20:40)
[2020-03-12] MEDS: LACTULOSE 20 GM/30 ML SYRUP UD PO SCH (08:10)
[2020-03-12] MEDS: HumaLOG INSULIN (NovoLOG) PER UNIT SC SCH ×4 (08:10→20:40)
[2020-03-12] MEDS: SUCRALFATE 1 GM TAB PO SCH ×2 (08:10→17:30)
[2020-03-12] MEDS: LIDOCAINE 5% (LIDODERM) PATCH TD SCH (08:10)
[2020-03-12] MEDS: OMEPRAZOLE 20 MG CAP PO SCH ×2 (08:11→20:38)
[2020-03-12] MEDS: TORSEMIDE 20 MG TAB PO SCH (08:11)
[2020-03-12] MEDS: POTASSIUM CHLORIDE 10 MEQ SR TABLET PO SCH ×2 (08:11→20:39)
[2020-03-12] MEDS: ASPIRIN 81 MG ENTERIC TAB PO SCH ×2 (08:11→20:38)
[2020-03-12] MEDS: SPIRONOLACTONE 50 MG TAB PO SCH (08:11)
[2020-03-12] MEDS: FIBER-CON 625 MG TAB PO SCH (08:11)
[2020-03-12] MEDS: ACETAMINOPHEN TAB 650MG DOSE (2X325MG) PO SCH ×3 (08:12→20:39)
[2020-03-12] MEDS: traMADol 50 MG TAB PO SCH (08:12)
[2020-03-12 10:25] LABS: CALCIUM LEVEL 9.3 MG/DL (8.8-10.2); CREATININE FOR GFR 1.07 MG/DL (0.55-1.30); PHOSPHORUS LEVEL 3.2 MG/DL (2.5-4.9); POTASSIUM SERUM 4.1 MEQ/L (3.5-5.1)
--- NOTE | 2020-03-12 11:59 | IPN ---
PROGRESS NOTE DATE: 03/12/2020 SUBJECTIVE: Mrs. Cabello is seen this morning on her bedside. She is sitting in the chair. She reports feeling tired and has complained of pain in her right knee and hip. She denies any nausea or vomiting. PHYSICAL EXAMINATION: VITAL SIGNS: Temperature is 98.4 degrees Fahrenheit, heart rate is 65 per minute and respiratory rate is 18 per minute. Blood pressure is 122/63 mmHg and oxygen saturation is 96% on room air. HEAD: Atraumatic. NECK: Supple. JVD is difficult to be assessed. HEART: Heart sounds are regular. LUNGS: Bibasilar rales. ABDOMEN: Soft and nontender. Bowel sounds are normal. EXTREMITIES: Without any cyanosis or clubbing. Lower extremity edema is 2+ bilaterally. She has a dressing on her right knee which is bruised and also dressing on her right hip incision site where she had her surgery. LABORATORY DATA: Today's chemistries showed a sodium level of 129, potassium 4.1, chloride 89, CO2 32, BUN 18, and creatinine 1.07. Her serum albumin is 2.0, calcium is 9.3 and phosphorus 3.2. PROBLEMS: 1. Acute on chronic congestive heart failure, volume status is still not very well-compensated. She is on Furosemide 40 mg daily and Spironolactone 50 mg daily. Will continue with the same. 2. Hypokalemia. Her potassium level is gradually improving and we will consider to cut down her potassium supplement if her potassium goes above 4.5. 3. Hyponatremia. Sodium level is essentially unchanged. I feel that her hyponatremia is related to volume overload and decompensated congestive heart failure. We will continue our efforts to diurese her. Unfortunately, she is not willing to restrict her fluid intake much. 4. Constipation. The patient has been quite concerned about her constipation. She did have one bowel movement yesterday and I will give her another dose of Senokot tonight. She received Lactulose 15 ml daily and I would suggest to increase the dose to 30 ml in order for her to have a good BM.
--- NOTE | 2020-03-12 12:14 | IPNPDOC ---
PM&R Progress Note DATE OF SERVICE: Mar 12, 2020 [id number] Developer Progress Note Subjective: Patient reporting she feels sore today and would like to try taking tramadol. She otherwise states her breathing is stable. REVIEW OF SYSTEMS: The following is a completed review of systems and has been reviewed. Review of systems otherwise unremarkable. PAIN: right hip pain EYES: No recent vision changes. EARS, NOSE, & THROAT: No throat pain, or dysphagia, or rhinorrhea. CARDIOVASCULAR: Denies chest pain or palpitations. PULMONARY: admits shortness of breath (chronic) GASTROINTESTINAL: Denies constipation/diarrhea. 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 PHYSICAL EXAMINATION: VITAL SIGNS: Please see below. GENERAL: Pleasant and cooperative. HEENT: PERRL. Extraocular movements intact. Clear conjunctiva, no adenopathy or thyromegaly. Full cervical range of motion without tenderness or spasm. CARDIOVASCULAR: Regular rate and rhythm. Holosystolic machine murmur bilateral anterior chest szymanski. Palpable pacemaker LUNGS: Clear to auscultation bilaterally. Diminished breath sounds bilateral bases. No wheezes. No rhonchi. no crackles ABDOMEN: Soft, nontender, mildly distended. Positive bowel sounds.no organomegaly. NEUROLOGICAL: Cranial nerves II through XII intact. Sensation intact all 4 extremities. Tone wnl. EXTREMITIES: Full bilateral forward flexion, no tenderness about shoulder girdles. 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 SKIN: Healing right lateral incision dressing, dry, some surrounding erythema noted. bilat LE edema (improving) ASSESSMENT: 84 year-old hypertensive diabetic female with past medical history of chronic liver disease who presents status post cemented hemiarthroplasty for Right hip fracture 02.26.2020. Post operatively has had hypotension, anemia, altered mental status, however is clearing and would benefit from rehabilitation interventions to regain optimal functional independence. PLAN: 1. Rehab- PT/OT advance gait and ADls, strengthen/stretch/maintain ROM all 4 limbs 2. Neuro- Continue Lactulose for chronic metabolic encephalopathy. SWEATBAND PERFORATOR orientation, cognitive processing 3. Ortho- THR hip precautions, LAITH, ASA 4. Cardiac- Shifted position of heart,Longstanding Murmur, s/p pacemaker 2007 Dr. Ravi, Dr. Watts for bradycardia, stable cardiac function -HTN c/u BP meds 5. Resp right pleural effusion with hx under-inflated lung from prior thoracentesis 2018 incentive spirometry, monitor for need of oxygen supplementation, RT, possible infection- repeat CXR 03-03-20 showing unchanged right sided pleural effusion which may appear larger on CXR due to underinflation of lung and shifted heart position- patients weight improving and endurance in therapy also improving -Duonebs ordered 6. Endo- hx of DM, stable on 7. - monitor PVRs 8. GI ppx-concern for possible GI bleed while on ASA which was changed to EC , c/u increased omeprazole BID and sucralfate, continue Lactulose, Spironolactone- FOBT negative 9. Hyponatremia- renal following, patient's diuretics increased and fluid restriction, loosened, recs and interventions appreciated 10. Pain- c./u tramadol, judicious use of tylenol in setting of cirrhosis -lidoderm patch to right knee 9. DVT prophylaxis ASA BID 10. Heme- patient with fluctuating H/H s/p 1 unit rbc 03-03-20-stable -s/p VEnofer per renal 11. Dispo- patient is participating wellin therapy, but will likely need longer period of therapy at short term rehab in order to be able to go home alone safely Allergies Coded Allergies: No Known Drug Allergies (Verified Allergy, Unknown, 02/25/20) meperidine (Verified Adverse Reaction, Mild, N/V, 02/25/20) Vital Signs Vital Signs Date Time Temp Pulse Resp B/P (MAP) Pulse Ox O2 Delivery O2 Flow Rate FiO2 03/12/20 08:12 18 03/12/20 06:00 98.4 65 96 Room Air 03/11/20 20:30 122/63 (82) 03/07/20 06:11 99.0 Laboratory Data CBC/BMP Laboratory Tests 03/12/20 09:20 Labs 24H Laboratory Tests 2 03/11/20 16:52: Bedside Glucose (Misc Panel) 187H 03/11/20 21:06: Bedside Glucose (Misc Panel) 180H 03/12/20 06:12: Bedside Glucose (Misc Panel) 125H 03/12/20 09:20: Anion Gap 8, Glomerular Filtration Rate 52.0, Calcium Level 9.3, Phosphorus Level 3.2, Albumin 2.0L 03/12/20 11:34: Bedside Glucose (Misc Panel) 156H Microbiology Microbiology 03/04/20 Stool Occult Blood (THOM) - Final, Complete Current Medications Current Medications Current Medications Medications (Trade) Dose Ordered Sig/Paige Route PRN Reason Start Time Stop Time Status Last Admin Dose Admin Acetaminophen (Tylenol Tab) 650 mg Q6HP PRN PO PAIN / FEVER 02/27/20 17:45 03/02/20 11:08 DC 02/28/20 21:50 Acetaminophen (Tylenol Tab) 650 mg Q6HP PRN PO MILD PAIN, FEVER 03/02/20 11:15 03/11/20 13:15 DC 03/02/20 21:12 Acetaminophen (Tylenol Tab) 650 mg TID PO 03/11/20 13:30 03/12/20 08:12 Albuterol/ Ipratropium (Duoneb (Ipr 0.5mg/Alb 2.5mg)) 3 ml RQID NEB 03/02/20 12:00 03/12/20 12:11 Aspirin (Aspirin Chewable) 81 mg BID PO 02/27/20 21:00 03/02/20 09:57 DC 03/02/20 09:02 Aspirin (Ecotrin) 81 mg BID PO 03/02/20 21:00 03/12/20 08:11 Calcium Polycarbophil (Fiber Con) 1 ea DAILY PO 02/28/20 09:00 03/12/20 08:11 Dextrose (Dextrose 50%) 25 ml ASDIRECTED PRN IV SEE LABEL COMMENTS 02/27/20 17:45 Glucagon (Glucagon) 1 mg ASDIRECTED PRN SC SEE LABEL COMMENTS 02/27/20 17:45 Glucose (Glucose) 16 GM ASDIRECTED PRN PO SEE LABEL COMMENTS 02/27/20 17:45 Home Med (Med Rec Complete!) ASDIRECTED XX 02/27/20 18:00 02/27/20 18:00 DC Insulin Detemir (Levemir Insulin) 10 units BID SC 02/27/20 21:00 03/03/20 09:34 DC 03/03/20 08:35 Insulin Detemir (Levemir Insulin) 10 units QHS SC 03/03/20 21:00 03/10/20 08:03 DC 03/09/20 21:40 Insulin Detemir (Levemir Insulin) 15 units DAILY SC 03/04/20 09:00 03/12/20 08:09 Insulin Detemir (Levemir Insulin) 15 units QHS [place] 03/10/20 21:00 03/11/20 21:51 Insulin Human Lispro (HumaLOG INSULIN) See Protocol Table AC SC 02/27/20 17:30 03/12/20 08:10 Insulin Human Lispro (HumaLOG INSULIN) See Protocol Table QHS NH 02/27/20 21:00 03/10/20 22:06 Iron (Venofer) 100 mg DAILY IV 03/06/20 09:00 03/05/20 19:16 DC Iron 100 mg/ Sodium Chloride 100 ml @ 100 mls/hr Q24H IV 03/06/20 09:00 03/08/20 09:59 DC 03/08/20 09:01 Lactulose (Cephulac) 15 ml DAILY PO 02/28/20 09:00 03/12/20 11:33 DC 03/12/20 08:10 Lactulose (Cephulac) 30 ml DAILY PO 03/13/20 09:00 Levalbuterol HCl (Xopenex Hfa) 2 puff Q4HP PRN INH SHORTNESS OF BREATH 02/27/20 17:45 Lidocaine (Lidoderm Patch) 1 patch DAILY TD 03/05/20 09:00 03/12/20 08:10 Non-Formulary Medication ( See Comment Field Below ) REMOVE LIDODERM PATCH DAILY@21 XX 03/05/20 21:00 03/11/20 21:00 Omeprazole (PriLOSEC) 20 mg BID PO 03/02/20 21:00 03/12/20 08:11 Omeprazole (PriLOSEC) 20 mg DAILY PO 02/28/20 09:00 03/02/20 09:55 DC 03/02/20 09:01 Ondansetron HCl (Zofran) 4 mg Q8HP PRN PO NAUSEA OR VOMITING 02/27/20 17:45 Potassium Chloride (Micro-K Extencaps) 10 meq BID PO 03/09/20 21:00 03/12/20 08:11 Sodium Chloride (Sodium Chloride) 2 gm BID PO 02/28/20 09:00 03/02/20 08:59 DC 03/01/20 20:37 Spironolactone (Aldactone) 12.5 mg DAILY PO 02/28/20 09:00 03/05/20 19:02 DC 03/05/20 09:34 Spironolactone (Aldactone) 25 mg DAILY PO 03/06/20 09:00 03/09/20 08:56 DC 03/09/20 08:51 Spironolactone (Aldactone) 50 mg DAILY PO 03/10/20 09:00 03/12/20 08:11 Sucralfate (Carafate) 1 gm BID@0730,1730 PO 03/02/20 07:30 03/12/20 08:10 Torsemide (Demadex) 10 mg DAILY@1700 PO 03/06/20 17:00 03/09/20 08:56 DC 03/08/20 17:46 Torsemide (Demadex) 20 mg DAILY PO 02/29/20 09:00 03/09/20 08:56 DC 03/09/20 08:54 Torsemide (Demadex) 40 mg DAILY PO 03/10/20 09:00 03/12/20 08:11 Tramadol HCl (Ultram) 50 mg DAILY@0800 PO 03/03/20 08:00 03/12/20 08:12 Tramadol HCl (Ultram) 50 mg Q6HP PRN PO MODERATE PAIN (PS 5-7) 02/27/20 17:45 03/07/20 21:34 DEDE ARMSTRONG MD Mar 12, 2020 12:14
[2020-03-12 14:30] VITALS: BP 128/68
[2020-03-12] MEDS: **NOTE PATIENT COMMENT** MISC XX SCH (20:41)
[2020-03-12 21:00] VITALS: BP 113/63
[2020-03-12] MEDS ORDERED: SENNA 8.6 MG TAB (SENOKOT) PO ONE (21:00)
[2020-03-13 05:53] VITALS: BP 131/72
[2020-03-13 06:00] VITALS: BP 117/86
[2020-03-13 06:52] LABS: BASO # 0.1 10^3/uL (0.0-0.2); BASO % 1.1 % (0.0-1.0); EOS # 0.1 10^3/uL (0.0-0.5); EOS % 1.7 % (0.0-3.0); HEMATOCRIT 28.8 % (36.0-47.0); HEMOGLOBIN 9.4 g/dl (12.0-15.5); LYMPH # 0.5 10^3/uL (1.5-5.0); LYMPH % 8.8 % (24.0-44.0); MEAN CORPUSCULAR HEMOGLOBIN 34.6 pg (27.0-33.0); MEAN CORPUSCULAR HGB CONC 32.6 g/dl (32.0-36.5); MEAN CORPUSCULAR VOLUME 105.9 fl (80.0-96.0); MONO # 0.9 10^3/uL (0.0-0.8); MONO % 16.5 % (0.0-5.0); NEUTROPHILS # 3.9 10^3/uL (1.5-8.5); NEUTROPHILS % 71.2 % (36.0-66.0); PLATELET COUNT, AUTOMATED 169 10^3/uL (150-450); RED BLOOD COUNT 2.72 10^6/uL (4.00-5.40); WHITE BLOOD COUNT 5.5 10^3/uL (4.0-10.0)
[2020-03-13 07:16] LABS: CALCIUM LEVEL 9.1 MG/DL (8.8-10.2); CREATININE FOR GFR 1.02 MG/DL (0.55-1.30)
[2020-03-13] MEDS: IPRATROPIUM 0.5MG/ALBUTEROL 2.5MG INH SOL UD 3ML (DUONEB) NEB SCH ×4 (08:00→20:00)
[2020-03-13] MEDS: LACTULOSE 20 GM/30 ML SYRUP UD PO SCH (09:20)
[2020-03-13] MEDS: TORSEMIDE 20 MG TAB PO SCH (09:20)
[2020-03-13] MEDS: OMEPRAZOLE 20 MG CAP PO SCH ×2 (09:20→21:37)
[2020-03-13] MEDS: POTASSIUM CHLORIDE 10 MEQ SR TABLET PO SCH ×2 (09:21→21:38)
[2020-03-13] MEDS: ACETAMINOPHEN TAB 650MG DOSE (2X325MG) PO SCH ×3 (09:21→21:38)
[2020-03-13] MEDS: ASPIRIN 81 MG ENTERIC TAB PO SCH ×2 (09:21→21:37)
[2020-03-13] MEDS: LEVEMIR (INSULIN DETEMIR) 1 UNITS/0.01ML SC SCH ×2 (09:22→21:39)
[2020-03-13] MEDS: SUCRALFATE 1 GM TAB PO SCH ×2 (09:22→17:39)
[2020-03-13] MEDS: HumaLOG INSULIN (NovoLOG) PER UNIT SC SCH ×4 (09:22→21:00)
[2020-03-13] MEDS: traMADol 50 MG TAB PO SCH (09:23)
[2020-03-13] MEDS: SPIRONOLACTONE 50 MG TAB PO SCH (09:23)
[2020-03-13] MEDS: LIDOCAINE 5% (LIDODERM) PATCH TD SCH (09:23)
[2020-03-13] MEDS: FIBER-CON 625 MG TAB PO SCH (09:23)
--- NOTE | 2020-03-13 10:36 | IPNPDOC ---
PM&R Progress Note DATE OF SERVICE: Mar 13, 2020 [employer] Analyst Progress Note Subjective: Patient seen in therapy with no complaints and denies worsening shortness of breath. REVIEW OF SYSTEMS: The following is a completed review of systems and has been reviewed. Review of systems otherwise unremarkable. PAIN: right hip pain EYES: No recent vision changes. EARS, NOSE, & THROAT: No throat pain, or dysphagia, or rhinorrhea. CARDIOVASCULAR: Denies chest pain or palpitations. PULMONARY: admits shortness of breath (chronic) GASTROINTESTINAL: Denies constipation/diarrhea. 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 PHYSICAL EXAMINATION: VITAL SIGNS: Please see below. GENERAL: Pleasant and cooperative. HEENT: PERRL. Extraocular movements intact. Clear conjunctiva, no adenopathy or thyromegaly. Full cervical range of motion without tenderness or spasm. CARDIOVASCULAR: Regular rate and rhythm. Holosystolic machine murmur bilateral anterior chest szymanski. Palpable pacemaker LUNGS: Clear to auscultation bilaterally. Diminished breath sounds bilateral bases. No wheezes. No rhonchi. no crackles ABDOMEN: Soft, nontender, mildly distended. Positive bowel sounds.no organomegaly. NEUROLOGICAL: Cranial nerves II through XII intact. Sensation intact all 4 extremities. Tone wnl. EXTREMITIES: Full bilateral forward flexion, no tenderness about shoulder girdles. healing anterior foreleg abrasions, 5 /5 bilateral automatic toe laster, elbow flexion, unable to fully test knee extension, 5/5 foot dorsiflexion, plantar flexion. SKIN: Healing right lateral incision dressing, dry, some surrounding erythema noted. bilat LE edema (improving) ASSESSMENT: 84 year-old hypertensive diabetic female with past medical history of chronic liver disease who presents status post cemented hemiarthroplasty for Right hip fracture 02.26.2020. Post operatively has had hypotension, anemia, altered mental status, however is clearing and would benefit from rehabilitation interventions to regain optimal functional independence. PLAN: 1. Rehab- PT/OT advance gait and ADls, strengthen/stretch/maintain ROM all 4 limbs 2. Neuro- Continue Lactulose for chronic metabolic encephalopathy. LACING PRESSER orientation, cognitive processing 3. Ortho- THR hip precautions, LAITH, ASA 4. Cardiac- Shifted position of heart,Longstanding Murmur, s/p pacemaker 2007 Dr Eric Ravi, Dr. Watts for bradycardia, stable cardiac function -HTN c/u BP meds 5. Resp right pleural effusion with hx under-inflated lung from prior thoracentesis 2018 incentive spirometry, monitor for need of oxygen supplementation, RT, possible infection- repeat CXR 03-03-20 showing unchanged right sided pleural effusion which may appear larger on CXR due to underinflation of lung and shifted heart position- patients weight improving and endurance in therapy also improving -Duonebs ordered 6. Endo- hx of DM, stable on 7. - monitor PVRs 8. GI ppx-concern for possible GI bleed while on ASA which was changed to EC , c/u increased omeprazole BID and sucralfate, continue Lactulose, Fabian nolactone- FOBT negative 9. Hyponatremia- renal following, patient's diuretics increased and fluid r estriction, loosened, recs and interventions appreciated 10. Pain- c./u tramadol, judicious use of tylenol in setting of cirrhosis -lidoderm patch to right knee 9. DVT prophylaxis ASA BID 10. Heme- patient with fluctuating H/H s/p 1 unit rbc 03-03-20-stable -s/p VEnofer per renal 11. Dispo- patient is participating wellin therapy, but will likely need longer period of therapy at short term rehab in order to be able to go home alone safely-awaiting bed at [facility] Allergies Coded Allergies: No Known Drug Allergies (Verified Allergy, Unknown, 02/25/20) meperidine (Verified Adverse Reaction, Mild, N/V, 02/25/20) Vital Signs Vital Signs Date Time Temp Pulse Resp B/P (MAP) Pulse Ox O2 Delivery O2 Flow Rate FiO2 03/13/20 09:23 16 Room Air 03/13/20 06:00 97.7 75 117/86 (96) 98 03/07/20 06:11 99.0 Laboratory Data CBC/BMP Laboratory Tests 03/13/20 06:24 Labs 24H Laboratory Tests 2 03/12/20 11:34: Bedside Glucose (Misc Panel) 156H 03/12/20 16:27: Bedside Glucose (Misc Panel) 224H 03/12/20 20:20: Bedside Glucose (Misc Panel) 208H 03/13/20 06:24: Immature Granulocyte % (Auto) 0.7, Neutrophils (%) (Auto) 71.2H, Lymphocytes (%) (Auto) 8.8L, Monocytes (%) (Auto) 16.5H, Eosinophils (%) (Auto) 1.7, Basophils (%) (Auto) 1.1H, Neutrophils # (Auto) 3.9, Lymphocytes # (Auto) 0.5L, Monocytes # (Auto) 0.9H, Eosinophils # (Auto) 0.1, Basophils # (Auto) 0.1, Nucleated Red Blood Cells % (auto) 0.0, Anion Gap 7L, Glomerular Filtration Rate 55.0, Calcium Level 9.1 Microbiology Microbiology 03/04/20 Stool Occult Blood (THOM) - Final, Complete Current Medications Current Medications Current Medications Medications (Trade) Dose Ordered Sig/Paige Route PRN Reason Start Time Stop Time Status Last Admin Dose Admin Acetaminophen (Tylenol Tab) 650 mg Q6HP PRN PO PAIN / FEVER 02/27/20 17:45 03/02/20 11:08 DC 02/28/20 21:50 Acetaminophen (Tylenol Tab) 650 mg Q6HP PRN PO MILD PAIN, FEVER 03/02/20 11:15 03/11/20 13:15 DC 03/02/20 21:12 Acetaminophen (Tylenol Tab) 650 mg TID PO 03/11/20 13:30 03/13/20 09:21 Albuterol/ Ipratropium (Duoneb (Ipr 0.5mg/Alb 2.5mg)) 3 ml RQID NEB 03/02/20 12:00 03/12/20 19:34 Aspirin (Aspirin Chewable) 81 mg BID PO 02/27/20 21:00 03/02/20 09:57 DC 03/02/20 09:02 Aspirin (Ecotrin) 81 mg BID PO 03/02/20 21:00 03/13/20 09:21 Calcium Polycarbophil (Fiber Con) 1 ea DAILY PO 02/28/20 09:00 03/13/20 09:23 Dextrose (Dextrose 50%) 25 ml ASDIRECTED PRN IV SEE LABEL COMMENTS 02/27/20 17:45 Glucagon (Glucagon) 1 mg ASDIRECTED PRN SC SEE LABEL COMMENTS 02/27/20 17:45 Glucose (Glucose) 16 GM ASDIRECTED PRN PO SEE LABEL COMMENTS 02/27/20 17:45 Home Med (Med Rec Complete!) ASDIRECTED XX 02/27/20 18:00 02/27/20 18:00 DC Insulin Detemir (Levemir Insulin) 10 units BID SC 02/27/20 21:00 03/03/20 09:34 DC 03/03/20 08:35 Insulin Detemir (Levemir Insulin) 10 units QHS SC 03/03/20 21:00 03/10/20 08:03 DC 03/09/20 21:40 Insulin Detemir (Levemir Insulin) 15 units DAILY SC 03/04/20 09:00 03/13/20 09:22 Insulin Detemir (Levemir Insulin) 15 units QHS MT 03/10/20 21:00 03/12/20 20:40 Insulin Human Lispro (HumaLOG INSULIN) See Protocol Table AC MT 02/27/20 17:30 03/13/20 09:22 Insulin Human Lispro (HumaLOG INSULIN) See Protocol Table QHS MT 02/27/20 21:00 03/10/20 22:06 Iron (Venofer) 100 mg DAILY IV 03/06/20 09:00 03/05/20 19:16 DC Iron 100 mg/ Sodium Chloride 100 ml @ 100 mls/hr Q24H IV 03/06/20 09:00 03/08/20 09:59 DC 03/08/20 09:01 Lactulose (Cephulac) 15 ml DAILY PO 02/28/20 09:00 03/12/20 11:33 DC 03/12/20 08:10 Lactulose (Cephulac) 30 ml DAILY PO 03/13/20 09:00 03/13/20 09:20 Levalbuterol HCl (Xopenex Hfa) 2 puff Q4HP PRN INH SHORTNESS OF BREATH 02/27/20 17:45 Lidocaine (Lidoderm Patch) 1 patch DAILY TD 03/05/20 09:00 03/13/20 09:23 Non-Formulary Medication ( See Comment Field Below ) REMOVE LIDODERM PATCH DAILY@21 XX 03/05/20 21:00 03/12/20 20:41 Omeprazole (PriLOSEC) 20 mg BID PO 03/02/20 21:00 03/13/20 09:20 Omeprazole (PriLOSEC) 20 mg DAILY PO 02/28/20 09:00 03/02/20 09:55 DC 03/02/20 09:01 Ondansetron HCl (Zofran) 4 mg Q8HP PRN PO NAUSEA OR VOMITING 02/27/20 17:45 Potassium Chloride (Micro-K Extencaps) 10 meq BID PO 03/09/20 21:00 03/13/20 09:21 Sodium Chloride (Sodium Chloride) 2 gm BID PO 02/28/20 09:00 03/02/20 08:59 DC 03/01/20 20:37 Spironolactone (Aldactone) 12.5 mg DAILY PO 02/28/20 09:00 03/05/20 19:02 DC 03/05/20 09:34 Spironolactone (Aldactone) 25 mg DAILY PO 03/06/20 09:00 03/09/20 08:56 DC 03/09/20 08:51 Spironolactone (Aldactone) 50 mg DAILY PO 03/10/20 09:00 03/13/20 09:23 Sucralfate (Carafate) 1 gm BID@0730,1730 PO 03/02/20 07:30 03/13/20 09:22 Torsemide (Demadex) 10 mg DAILY@1700 PO 03/06/20 17:00 03/09/20 08:56 DC 03/08/20 17:46 Torsemide (Demadex) 20 mg DAILY PO 02/29/20 09:00 03/09/20 08:56 [place] 03/09/20 08:54 Torsemide (Demadex) 40 mg DAILY PO 03/10/20 09:00 03/13/20 09:20 Tramadol HCl (Ultram) 50 mg DAILY@0800 PO 03/03/20 08:00 03/13/20 09:23 Tramadol HCl (Ultram) 50 mg Q6HP PRN PO MODERATE PAIN (PS 5-7) 02/27/20 17:45 03/07/20 21:34 DEDE ARMSTRONG MD Mar 13, 2020 10:36
[2020-03-13 14:00] VITALS: BP 98/61
--- NOTE | 2020-03-13 14:33 | IPN ---
PROGRESS NOTE DATE: 03/13/2020 SUBJECTIVE: Mrs. Cabello is seen this morning at her bedside. She is sitting in the chair and reports ongoing bowel problems. She has been receiving lactulose and missed the dose of Senokot yesterday. She reports only small amounts of stool and does not report a good bowel movement for several days. She feels uncomfortable and feels that she has a hard stool in her rectum, which does not want to come out. Her leg edema and dyspnea are essentially unchanged. OBJECTIVE: VITAL SIGNS: Temperature 97.7 degrees Fahrenheit, heart rate 75 per minute, and respiratory rate 16 per minute. Blood pressure 117/86 mmHg and oxygen saturation 98% on room air. HEAD: Head is atraumatic. NECK: Supple. JVD about 6 cm above the sternal angle. HEART: Sounds are regular. LUNGS: With few basilar rales bilaterally. ABDOMEN: Soft and bowel sounds are present. EXTREMITIES: Without any cyanosis or clubbing. Lower extremity edema is 2+. NEUROLOGIC: She is awake, alert, and oriented x3. LABORATORY DATA: Today's labs show a WBC count of 5.5, hemoglobin 9.4, and hematocrit 28.8. Sodium is up to 131, potassium 4.0, CO2 of 35, BUN 21, and creatinine 1.02. Glucose 122 and calcium 9.1. PROBLEMS: 1. Hyponatremia. Sodium level is gradually improving with diuresis. She should try to restrict her fluid intake; however, the patient is not willing to do that. 2. Acute on chronic congestive heart failure. Volume status only slightly improved. She remains on torsemide 40 mg daily and Spironolactone 50 mg daily. Will continue our efforts to diurese her. 3. Constipation. The patient has been given lactulose and Senokot; however, she reports that she did not have a good bowel movement for several days. I have increased her lactulose dose to 30 mL daily and advised the nursing staff to check for fecal impaction as she may have impacted stool, which is causing her symptoms.
[2020-03-13 17:28] VITALS: BP 101/55
[2020-03-13 20:00] VITALS: BP 91/55
[2020-03-13] MEDS: **NOTE PATIENT COMMENT** MISC XX SCH (21:39)
[2020-03-14 05:44] VITALS: BP 122/67
[2020-03-14] MEDS: HumaLOG INSULIN (NovoLOG) PER UNIT SC SCH ×4 (07:15→21:24)
[2020-03-14] MEDS: IPRATROPIUM 0.5MG/ALBUTEROL 2.5MG INH SOL UD 3ML (DUONEB) NEB SCH ×4 (07:43→20:00)
[2020-03-14] MEDS: FIBER-CON 625 MG TAB PO SCH (08:13)
[2020-03-14] MEDS: OMEPRAZOLE 20 MG CAP PO SCH ×2 (08:13→21:22)
[2020-03-14] MEDS: LEVEMIR (INSULIN DETEMIR) 1 UNITS/0.01ML SC SCH ×2 (08:13→21:24)
[2020-03-14] MEDS: traMADol 50 MG TAB PO SCH (08:13)
[2020-03-14] MEDS: SPIRONOLACTONE 50 MG TAB PO SCH (08:13)
[2020-03-14] MEDS: LACTULOSE 20 GM/30 ML SYRUP UD PO SCH (08:13)
[2020-03-14] MEDS: POTASSIUM CHLORIDE 10 MEQ SR TABLET PO SCH ×2 (08:14→21:22)
[2020-03-14] MEDS: TORSEMIDE 20 MG TAB PO SCH ×2 (08:14→17:21)
[2020-03-14] MEDS: LIDOCAINE 5% (LIDODERM) PATCH TD SCH (08:14)
[2020-03-14] MEDS: ACETAMINOPHEN TAB 650MG DOSE (2X325MG) PO SCH ×3 (08:14→21:23)
[2020-03-14] MEDS: SUCRALFATE 1 GM TAB PO SCH ×2 (08:15→17:22)
[2020-03-14] MEDS: ASPIRIN 81 MG ENTERIC TAB PO SCH ×2 (08:15→21:22)
[2020-03-14 14:00] VITALS: BP 115/58
[2020-03-14 20:00] VITALS: BP 145/62
[2020-03-14] MEDS: **NOTE PATIENT COMMENT** MISC XX SCH (21:23)
[2020-03-15 05:42] VITALS: BP 98/56
[2020-03-15 06:23] LABS: ALBUMIN 1.8 GM/DL (3.2-5.2); CALCIUM LEVEL 8.3 MG/DL (8.8-10.2); CREATININE FOR GFR 1.06 MG/DL (0.55-1.30); GLOMERULAR FILTRATION RATE 52.6 (>32); PHOSPHORUS LEVEL 2.8 MG/DL (2.5-4.9); POTASSIUM SERUM 4.1 MEQ/L (3.5-5.1)
[2020-03-15] MEDS: IPRATROPIUM 0.5MG/ALBUTEROL 2.5MG INH SOL UD 3ML (DUONEB) NEB SCH ×4 (07:36→19:17)
[2020-03-15] MEDS: HumaLOG INSULIN (NovoLOG) PER UNIT SC SCH ×4 (07:39→20:42)
[2020-03-15] MEDS: LIDOCAINE 5% (LIDODERM) PATCH TD SCH (07:39)
[2020-03-15] MEDS: SUCRALFATE 1 GM TAB PO SCH ×2 (07:40→17:34)
[2020-03-15] MEDS: LACTULOSE 20 GM/30 ML SYRUP UD PO SCH (07:40)
[2020-03-15] MEDS: traMADol 50 MG TAB PO SCH (07:40)
[2020-03-15] MEDS: LEVEMIR (INSULIN DETEMIR) 1 UNITS/0.01ML SC SCH ×2 (07:40→20:40)
[2020-03-15] MEDS: TORSEMIDE 20 MG TAB PO SCH ×2 (07:41→17:35)
[2020-03-15] MEDS: POTASSIUM CHLORIDE 10 MEQ SR TABLET PO SCH ×2 (07:41→20:41)
[2020-03-15] MEDS: FIBER-CON 625 MG TAB PO SCH (07:41)
[2020-03-15] MEDS: ACETAMINOPHEN TAB 650MG DOSE (2X325MG) PO SCH ×3 (07:41→20:41)
[2020-03-15] MEDS: ASPIRIN 81 MG ENTERIC TAB PO SCH ×2 (07:42→20:42)
[2020-03-15] MEDS: SPIRONOLACTONE 50 MG TAB PO SCH (07:42)
[2020-03-15] MEDS: OMEPRAZOLE 20 MG CAP PO SCH ×2 (07:42→20:40)
--- NOTE | 2020-03-15 09:44 | IPN ---
PROGRESS NOTE DATE: 03/14/2020 SUBJECTIVE: The patient was seen and examined at the bedside today morning. She is afebrile, hemodynamically stable. She continues to be on oral diuretics. There is no significant improvement in the edema. She reports persistent leg edema. Renal function is otherwise stable. OBJECTIVE: VITAL SIGNS: Temperature is 97.8 degrees Fahrenheit, blood pressure is 122/67, pulse is 80, respiratory rate is 20, saturating 98% on room air. INTAKE AND OUTPUT: Urine output is not recorded. Patient has incontinent voids. Weight on the bed scale is 71.9 kg which is almost the same as yesterday. GENERAL: The patient is awake, alert and oriented x3, sitting up, in no apparent distress. HEAD AND NECK: Extraocular muscles intact. Pupils equally round and reactive to light. Mucous membranes are moist. Neck is supple. There is mildly elevated JVD. CARDIOVASCULAR: S1 and S2, regular rate, 2+ edema of the legs and thighs. She has a systolic murmur which is Grade 3/6. RESPIRATORY: Mildly decreased breath sounds at the bases, otherwise no active rales or rhonchi. ABDOMEN: Soft, positive bowel sounds. Nontender. MUSCULOSKELETAL: There is 2+ edema of the extremities all the way up to the thighs. BOWLING PIN REFINISHER: No focal deficit. Power is 5/5 in bilateral upper extremities. LABORATORY DATA: CBC from yesterday showed a hemoglobin of 9.4 and BMP is also from yesterday with a sodium of 131 and creatinine of 1.02. CURRENT INPATIENT MEDICATIONS: The patient's medications are all reviewed by myself. She is on torsemide 40 mg daily. I have increased the torsemide dose to 40 mg p.o. twice a day. She is also on Spironolactone 50 mg daily. No other changes in the medications today as compared with yesterday. ASSESSMENT AND PLAN: 1. Hypervolemic hyponatremia. Patient has persistent hyponatremia. As mentioned above, the diuretic dose has been increased. Hopefully, improvement in the volume status should help improve sodium level as well. 2. Acute on chronic decompensated congestive heart failure. She has persistent edema. Weight is still the same as yesterday. As mentioned above, torsemide dose has been increased to 40 mg p.o. twice a day. Continue current dose of spironolactone and potassium. Further change in the diuretic dose will be done over the next 24 to 48 hours once I review her labs and see the response to the current regimen. 3. Constipation. The patient had two bowel movements yesterday with the higher dose of laxatives.
[2020-03-15 14:00] VITALS: BP 126/68
--- NOTE | 2020-03-15 20:09 | IPN ---
PROGRESS NOTE DATE: 03/15/2020 SUBJECTIVE: Patient was seen and examined at the bedside today morning in the rehabilitation unit. She was getting physical therapy of her right leg when I saw her in the morning. She reports lower extremity edema is getting better. Her dose of torsemide was increased yesterday. Renal function is stable on current dose of torsemide. OBJECTIVE: Vital signs: Temperature is 98.1 degrees Fahrenheit, blood pressure is 98/56, pulse is 76, respiratory rate of 20, saturating 97% on room air. Intake and output: Urine output is not recorded well, she has incontinent voids. Weight in the bed scale is 71.8 kg. PHYSICAL EXAMINATION: GENERAL: Patient is awake, alert, oriented times two, laying in the bed, no apparent distress. HEAD AND NECK EXAM: Extraocular muscles intact. Pupils are equally round and reactive to light. Mucous membranes are moist. Neck is supple. She has moderately elevated jugular venous distension (JVD). CARDIOVASCULAR: S1, S2, regular rate. 2+ edema of the bilateral lower extremities. RESPIRATORY: Chest is clear to auscultation bilaterally. Bilateral equal air entry. No rales or rhonchi. ABDOMEN: Soft, positive bowel sounds, nontender, no organomegaly. MUSCULOSKELETAL: 2+ edema of the bilateral lower extremities and mildly decreased range of movement of the right hip. CENTRAL NERVOUS SYSTEM (CLIENT RENEWAL SPECIALIST): No focal deficits. Power is 5/5 in bilateral upper extremities. LABORATORY REVIEW: CBC is from 03/13/2020. BMP done today morning showed sodium 130, potassium 4.1, chloride 91, bicarbonate 33, BUN 21, creatinine is 1.06. CURRENT INPATIENT MEDICATIONS: Patient's medications were all reviewed by myself. Her torsemide dose was increased to 40 mg by mouth twice a day yesterday. She continues to be on spironolactone as well. No other significant change in the medications today as compared with yesterday. ASSESSMENT AND PLAN: 1. Acute on chronic decompensated congestive heart failure. Patient's torsemide dose was increased yesterday. Lower extremity edema is improving. Continue current dose. Continue to monitor daily weight, intake and output. 2. Hypervolemic hyponatremia. Sodium level is stable. It should improve with further diuresis. 3. Anemia in chronic kidney disease. Hemoglobin level is stable, however if it drops further then patient will be started on Aranesp.
[2020-03-15 20:18] VITALS: BP 122/55
[2020-03-15] MEDS: traMADol 50 MG TAB PO PRN (20:42)
[2020-03-15] MEDS: **NOTE PATIENT COMMENT** MISC XX SCH (20:43)
[2020-03-16 05:45] VITALS: BP_SYST 141; BP_SYST 150; BP_DIAS 70; BP_DIAS 73
[2020-03-16 06:59] LABS: BASO % 0.6 % (0.0-1.0); EOS # 0.1 10^3/uL (0.0-0.5); EOS % 1.3 % (0.0-3.0); HEMATOCRIT 30.8 % (36.0-47.0); HEMOGLOBIN 9.8 g/dl (12.0-15.5); LYMPH # 0.6 10^3/uL (1.5-5.0); LYMPH % 7.9 % (24.0-44.0); MEAN CORPUSCULAR HEMOGLOBIN 33.9 pg (27.0-33.0); MEAN CORPUSCULAR HGB CONC 31.8 g/dl (32.0-36.5); MEAN CORPUSCULAR VOLUME 106.6 fl (80.0-96.0); MONO % 13.9 % (0.0-5.0); NEUTROPHILS # 5.4 10^3/uL (1.5-8.5); NEUTROPHILS % 75.7 % (36.0-66.0); PLATELET COUNT, AUTOMATED 154 10^3/uL (150-450); RED BLOOD COUNT 2.89 10^6/uL (4.00-5.40); WHITE BLOOD COUNT 7.1 10^3/uL (4.0-10.0)
[2020-03-16] MEDS: IPRATROPIUM 0.5MG/ALBUTEROL 2.5MG INH SOL UD 3ML (DUONEB) NEB SCH ×4 (07:18→20:16)
[2020-03-16 07:31] LABS: CALCIUM LEVEL 9.2 MG/DL (8.8-10.2); CREATININE FOR GFR 1.18 MG/DL (0.55-1.30); GLOMERULAR FILTRATION RATE 46.5 (>32); POTASSIUM SERUM 4.1 MEQ/L (3.5-5.1)
[2020-03-16] MEDS: LACTULOSE 20 GM/30 ML SYRUP UD PO SCH (08:28)
[2020-03-16] MEDS: LIDOCAINE 5% (LIDODERM) PATCH TD SCH (08:29)
[2020-03-16] MEDS: HumaLOG INSULIN (NovoLOG) PER UNIT SC SCH ×4 (08:30→21:00)
[2020-03-16] MEDS: LEVEMIR (INSULIN DETEMIR) 1 UNITS/0.01ML SC SCH ×2 (08:31→21:58)
[2020-03-16] MEDS: OMEPRAZOLE 20 MG CAP PO SCH ×2 (08:31→21:57)
[2020-03-16] MEDS: ASPIRIN 81 MG ENTERIC TAB PO SCH ×2 (08:32→21:57)
[2020-03-16] MEDS: POTASSIUM CHLORIDE 10 MEQ SR TABLET PO SCH ×2 (08:32→21:57)
[2020-03-16] MEDS: FIBER-CON 625 MG TAB PO SCH (08:33)
[2020-03-16] MEDS: traMADol 50 MG TAB PO SCH (08:33)
[2020-03-16] MEDS: TORSEMIDE 20 MG TAB PO SCH ×2 (08:33→17:03)
[2020-03-16] MEDS: SUCRALFATE 1 GM TAB PO SCH ×2 (08:33→17:02)
[2020-03-16] MEDS: SPIRONOLACTONE 50 MG TAB PO SCH (08:33)
[2020-03-16] MEDS: ACETAMINOPHEN TAB 650MG DOSE (2X325MG) PO SCH ×3 (08:34→21:57)
--- NOTE | 2020-03-16 12:51 | IPNPDOC ---
PM&R Progress Note DATE OF SERVICE: Mar 16, 2020 Criminal Records Technician Progress Note Subjective: Patient reporting she feels well enough and understands there is a delay in obtaining a bed at short term rehab. She was encouraged to ask for tramadol for her pain. REVIEW OF SYSTEMS: The following is a completed review of systems and has been reviewed. Review of systems otherwise unremarkable. PAIN: right hip pain EYES: No recent vision changes. EARS, NOSE, & THROAT: No throat pain, or dysphagia, or rhinorrhea. CARDIOVASCULAR: Denies chest pain or palpitations. PULMONARY: admits shortness of breath (chronic) GASTROINTESTINAL: Denies constipation/diarrhea. 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 PHYSICAL EXAMINATION: VITAL SIGNS: Please see below. GENERAL: Pleasant and cooperative. HEENT: PERRL. Extraocular movements intact. Clear conjunctiva, no adenopathy or thyromegaly. Full cervical range of motion without tenderness or spasm. CARDIOVASCULAR: Regular rate and rhythm. Holosystolic machine murmur bilateral anterior chest szymanski. Palpable pacemaker LUNGS: Clear to auscultation bilaterally. Diminished breath sounds bilateral bases. No wheezes. No rhonchi. no crackles ABDOMEN: Soft, nontender, mildly distended. Positive bowel sounds.no organomegaly. NEUROLOGICAL: Cranial nerves II through XII intact. Sensation intact all 4 extremities. Tone wnl. EXTREMITIES: Full bilateral forward flexion, no tenderness about shoulder girdles. healing anterior foreleg abrasions, 5 /5 bilateral registered pharmacy technician, elbow flexion, unable to fully test knee extension, 5/5 foot dorsiflexion, plantar flexion. SKIN: Healing right lateral incision dressing, dry, some surrounding erythema noted. bilat LE edema (improving) ASSESSMENT: 84 year-old hypertensive diabetic female with past medical history of chronic liver disease who presents status post cemented hemiarthroplasty for Right hip fracture 02.26.2020. Post operatively has had hypotension, anemia, altered mental status, however is clearing and would benefit from rehabilitation interventions to regain optimal functional independence. PLAN: 1. Rehab- PT/OT advance gait and ADls, strengthen/stretch/maintain ROM all 4 limbs 2. Neuro- Continue Lactulose for chronic metabolic encephalopathy. MACHINE STEMMER orientation, cognitive processing 3. Ortho- THR hip precautions, LAITH, ASA 4. Cardiac- Shifted position of heart,Longstanding Murmur, s/p pacemaker 2008 Dr. Ravi, Dr. Watts for bradycardia, stable cardiac function -HTN c/u BP meds 5. Resp right pleural effusion with hx under-inflated lung from prior thoracentesis 2018 incentive spirometry, monitor for need of oxygen s upplementation, RT, possible infection- repeat CXR 03-03-20 showing unchanged right sided pleural effusion which may appear larger on CXR due to underinflation of lung and shifted heart position- patients weight improving and endurance in therapy also improving -Duonebs ordered 6. Endo- hx of DM, stable on 7. - monitor PVRs 8. GI ppx-concern for possible GI bleed while on ASA which was changed to EC , c/u increased omeprazole BID and sucralfate, continue Lactulose, Spironolactone- FOBT negative 9. Hyponatremia- renal following, patient's diuretics increased and fluid restriction, loosened, recs and interventions appreciated 10. Pain- c./u tramadol, judicious use of tylenol in setting of cirrhosis -lidoderm patch to right knee 9. DVT prophylaxis ASA BID 10. Heme- patient with fluctuating H/H s/p 1 unit rbc 03-03-20-stable -s/p VEnofer per renal 11. Dispo- patient is participating well in therapy, but will likely need longer period of therapy at short term rehab in order to be able to go home alone safely-awaiting bed at [facility], c/u to make gains and require intesive therapy and close medical management Allergies Coded Allergies: No Known Drug Allergies (Verified Allergy, Unknown, 02/25/20) meperidine (Verified Adverse Reaction, Mild, N/V, 02/25/20) Vital Signs Vital Signs Date Time Temp Pulse Resp B/P (MAP) Pulse Ox O2 Delivery O2 Flow Rate FiO2 03/16/20 08:33 22 Room Air 03/16/20 05:45 97.7 80 141/73 (95) 95 Laboratory Data CBC/BMP Laboratory Tests 03/16/20 06:35 Labs 24H Laboratory Tests 2 03/15/20 16:58: Bedside Glucose (Misc Panel) 236H 03/15/20 20:07: Bedside Glucose (Misc Panel) 171H 03/16/20 06:35: Immature Granulocyte % (Auto) 0.6, Neutrophils (%) (Auto) 75.7H, Lymphocytes (%) (Auto) 7.9L, Monocytes (%) (Auto) 13.9H, Eosinophils (%) (Auto) 1.3, Basophils (%) (Auto) 0.6, Neutrophils # (Auto) 5.4, Lymphocytes # (Auto) 0.6L, Monocytes # (Auto) 1.0H, Eosinophils # (Auto) 0.1, Basophils # (Auto) 0.0, Nucleated Red Blood Cells % (auto) 0.0, Anion Gap 6L, Glomerular Filtration Rate 46.5, Calcium Level 9.2 03/16/20 11:19: Bedside Glucose (Misc Panel) 131H Current Medications Current Medications Current Medications Medications (Trade) Dose Ordered Sig/Paige Route PRN Reason Start Time Stop Time Status Last Admin Dose Admin Acetaminophen (Tylenol Tab) 650 mg Q6HP PRN PO PAIN / FEVER 02/27/20 17:45 03/02/20 11:08 DC 02/28/20 21:50 Acetaminophen (Tylenol Tab) 650 mg Q6HP PRN PO MILD PAIN, FEVER 03/02/20 11:15 03/11/20 13:15 DC 03/02/20 21:12 Acetaminophen (Tylenol Tab) 650 mg TID PO 03/11/20 13:30 03/16/20 08:34 Albuterol/ Ipratropium (Duoneb (Ipr 0.5mg/Alb 2.5mg)) 3 ml RQID NEB 03/02/20 12:00 03/16/20 11:25 Aspirin (Aspirin Chewable) 81 mg BID PO 02/27/20 21:00 03/02/20 09:57 DC 03/02/20 09:02 Aspirin (Ecotrin) 81 mg BID PO 03/02/20 21:00 03/16/20 08:32 Calcium Polycarbophil (Fiber Con) 1 ea DAILY PO 02/28/20 09:00 03/16/20 08:33 Dextrose (Dextrose 50%) 25 ml ASDIRECTED PRN IV SEE LABEL COMMENTS 02/27/20 17:45 Glucagon (Glucagon) 1 mg ASDIRECTED PRN SC SEE LABEL COMMENTS 02/27/20 17:45 Glucose (Glucose) 16 GM ASDIRECTED PRN PO SEE LABEL COMMENTS 02/27/20 17:45 Home Med (Med Rec Complete!) ASDIRECTED XX 02/27/20 18:00 02/27/20 18:00 DC Insulin Detemir (Levemir Insulin) 10 units BID SC 02/27/20 21:00 03/03/20 09:34 DC 03/03/20 08:35 Insulin Detemir (Levemir Insulin) 10 units QHS SC 03/03/20 21:00 03/10/20 08:03 DC 03/09/20 21:40 Insulin Detemir (Levemir Insulin) 15 units DAILY SC 03/04/20 09:00 03/16/20 08:31 Insulin Detemir (Levemir Insulin) 15 units QHS SC 03/10/20 21:00 03/15/20 20:40 Insulin Human Lispro (HumaLOG INSULIN) See Protocol Table AC SC 02/27/20 17:30 03/16/20 12:19 Insulin Human Lispro (HumaLOG INSULIN) See Protocol Table QHS SC 02/27/20 21:00 03/14/20 21:24 Iron (Venofer) 100 mg DAILY IV 03/06/20 09:00 03/05/20 19:16 DC Iron 100 mg/ Sodium Chloride 100 ml @ 100 mls/hr Q24H IV 03/06/20 09:00 03/08/20 09:59 DC 03/08/20 09:01 Lactulose (Cephulac) 15 ml DAILY PO 02/28/20 09:00 03/12/20 11:33 DC 03/12/20 08:10 Lactulose (Cephulac) 30 ml DAILY PO 03/13/20 09:00 03/16/20 08:28 Levalbuterol HCl (Xopenex Hfa) 2 puff Q4HP PRN INH SHORTNESS OF BREATH 02/27/20 17:45 Lidocaine (Lidoderm Patch) 1 patch DAILY TD 03/05/20 09:00 03/16/20 08:29 Miscellaneous (Unresolved Clarification Entry) SEE LABEL COMMENTS DAILY XX 03/15/20 09:00 03/15/20 13:03 DC Non-Formulary Medication ( See Comment Field Below ) REMOVE LIDODERM PATCH DAILY@21 XX 03/05/20 21:00 03/15/20 20:43 Omeprazole (PriLOSEC) 20 mg BID PO 03/02/20 21:00 03/16/20 08:31 Omeprazole (PriLOSEC) 20 mg DAILY PO 02/28/20 09:00 03/02/20 09:55 DC 03/02/20 09:01 Ondansetron HCl (Zofran) 4 mg Q8HP PRN PO NAUSEA OR VOMITING 02/27/20 17:45 Potassium Chloride (Micro-K Extencaps) 10 meq BID PO 03/09/20 21:00 03/16/20 08:32 Sodium Chloride (Sodium Chloride) 2 gm BID PO 02/28/20 09:00 03/02/20 08:59 DC 03/01/20 20:37 Spironolactone (Aldactone) 12.5 mg DAILY PO 02/28/20 09:00 03/05/20 19:02 DC 03/05/20 09:34 Spironolactone (Aldactone) 25 mg DAILY PO 03/06/20 09:00 03/09/20 08:56 DC 03/09/20 08:51 Spironolactone (Aldactone) 50 mg DAILY PO 03/10/20 09:00 03/16/20 08:33 Sucralfate (Carafate) 1 gm BID@0730,1730 PO 03/02/20 07:30 03/16/20 08:33 Torsemide (Demadex) 10 mg DAILY@1700 PO 03/06/20 17:00 03/09/20 08:56 [place] 03/08/20 17:46 Torsemide (Demadex) 20 mg DAILY PO 02/29/20 09:00 03/09/20 08:56 [place] 03/09/20 08:54 Torsemide (Demadex) 40 mg BID@0900,1700 PO 03/14/20 17:00 03/16/20 08:33 Torsemide (Demadex) 40 mg DAILY PO 03/10/20 09:00 03/14/20 12:06 DC 03/14/20 08:14 Tramadol HCl (Ultram) 50 mg DAILY@0800 PO 03/03/20 08:00 03/16/20 08:33 Tramadol HCl (Ultram) 50 mg Q6HP PRN PO MODERATE PAIN (PS 5-7) 02/27/20 17:45 03/15/20 20:42 DEDE ARMSTRONG MD Mar 16, 2020 12:51
[2020-03-16 14:00] VITALS: BP 127/68
[2020-03-16 21:00] VITALS: BP 92/52
[2020-03-16] MEDS: **NOTE PATIENT COMMENT** MISC XX SCH (21:58)
[2020-03-17 06:00] VITALS: BP 115/56
--- NOTE | 2020-03-17 06:38 | IPN ---
PROGRESS NOTE DATE: 03/16/2020 SUBJECTIVE: The patient was seen and examined at the bedside today morning in the rehab unit. She is afebrile and hemodynamically stable. She is tolerating the current diuretic dose. Renal function is stable. She is diuresing well and edema is gradually improving. OBJECTIVE: VITAL SIGNS: Temperature 98 degrees Fahrenheit, blood pressure 127/68, pulse 84, respiratory rate of 24, saturating 95% on room air. INTAKE AND OUTPUT: Urine output is not recorded because she is incontinent. Weight on the bed scale is 70.3 kg, which is 1 kg below her weight yesterday. GENERAL: The patient is awake, alert, and oriented x3. Lying in bed in no apparent distress. HEAD AND NECK: Extraocular muscles intact. Pupils equally round and reactive to light. Mucous membranes are moist. Neck is supple. There is no significant JVD. CARDIOVASCULAR: S1, S2, regular rate. There is 2+ edema of the bilateral lower extremities all the way up to the thighs. RESPIRATORY: Chest is clear to auscultation bilaterally. Currently no rales or rhonchi. ABDOMEN: Soft with positive bowel sounds and nontender. No organomegaly. MUSCULOSKELETAL: 2+ edema of the extremities and mildly decreased range of movement of the right thigh because of recent trauma. VEGETABLE FARMWORKER: No focal deficit. Power is 5/5 in bilateral upper extremities. LABORATORY REVIEW: CBC showed WBC 7.l, hemoglobin 9.8, platelets 154,000. BMP showed sodium 128, potassium 4.1, chloride 90, bicarb 32, BUN 22, creatinine 1.18. CURRENT INPATIENT MEDICATIONS: The patient's medications were all reviewed by myself. She continues to be on torsemide 40 mg p.o. twice a day along with Spironolactone 50 mg p.o. daily. ASSESSMENT AND PLAN: 1. Acute on chronic decompensated congestive heart failure. Continue current dose of torsemide 40 b.i.d. and Spironolactone 50. Volume status is getting better. 2. Hypervolemic hyponatremia. She has persistent hyponatremia. Continue the diuretics at this time. 3. Anemia. Hemoglobin level is stable and improving. No need of Aranesp administration at this time.
[2020-03-17] MEDS: IPRATROPIUM 0.5MG/ALBUTEROL 2.5MG INH SOL UD 3ML (DUONEB) NEB SCH ×4 (07:18→20:54)
[2020-03-17] MEDS: HumaLOG INSULIN (NovoLOG) PER UNIT SC SCH ×4 (07:30→22:01)
[2020-03-17] MEDS: LEVEMIR (INSULIN DETEMIR) 1 UNITS/0.01ML SC SCH ×2 (09:00→22:01)
[2020-03-17] MEDS: LACTULOSE 20 GM/30 ML SYRUP UD PO SCH (09:06)
[2020-03-17] MEDS: ASPIRIN 81 MG ENTERIC TAB PO SCH ×2 (09:06→22:02)
[2020-03-17] MEDS: SUCRALFATE 1 GM TAB PO SCH ×2 (09:07→17:33)
[2020-03-17] MEDS: FIBER-CON 625 MG TAB PO SCH (09:07)
[2020-03-17] MEDS: ACETAMINOPHEN TAB 650MG DOSE (2X325MG) PO SCH ×3 (09:07→22:02)
[2020-03-17] MEDS: SPIRONOLACTONE 50 MG TAB PO SCH (09:08)
[2020-03-17] MEDS: traMADol 50 MG TAB PO SCH (09:08)
[2020-03-17] MEDS: POTASSIUM CHLORIDE 10 MEQ SR TABLET PO SCH ×2 (09:08→22:03)
[2020-03-17] MEDS: OMEPRAZOLE 20 MG CAP PO SCH ×2 (09:08→22:02)
[2020-03-17] MEDS: LIDOCAINE 5% (LIDODERM) PATCH TD SCH (09:09)
[2020-03-17] MEDS: TORSEMIDE 20 MG TAB PO SCH ×2 (09:09→17:34)
--- NOTE | 2020-03-17 11:46 | IPNPDOC ---
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 She is looking forward to going to short term rehab before going home. REVIEW OF SYSTEMS: The following is a completed review of systems and has been reviewed. Review of systems otherwise unremarkable. PAIN: right hip pain EYES: No recent vision changes. EARS, NOSE, & THROAT: No throat pain, or dysphagia, or rhinorrhea. CARDIOVASCULAR: Denies chest pain or palpitations. PULMONARY: admits shortness of breath (chronic) GASTROINTESTINAL: Denies constipation/diarrhea. 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 PHYSICAL EXAMINATION: VITAL SIGNS: Please see below. GENERAL: Pleasant and cooperative. HEENT: PERRL. Extraocular movements intact. Clear conjunctiva, no adenopathy or thyromegaly. Full cervical range of motion without tenderness or spasm. CARDIOVASCULAR: Regular rate and rhythm. Holosystolic machine murmur bilateral anterior chest szymanski. Palpable pacemaker LUNGS: Clear to auscultation bilaterally. Diminished breath sounds bilateral bases. No wheezes. No rhonchi. no crackles ABDOMEN: Soft, nontender, mildly distended. Positive bowel sounds.no organomegaly. NEUROLOGICAL: Cranial nerves II through XII intact. Sensation intact all 4 extremities. Tone wnl. EXTREMITIES: Full bilateral forward flexion, no tenderness about shoulder girdles. healing anterior foreleg abrasions, 5 /5 bilateral pest control technician, elbow flexion, unable to fully test knee extension, 5/5 foot dorsiflexion, plantar flexion. SKIN: Healing right lateral incision dressing bilat LE edema (improving) ASSESSMENT: 84 year-old hypertensive diabetic female with past medical history of chronic liver disease who presents status post cemented hemiarthroplasty for Right hip fracture 02.26.2020. Post operatively has had hypotension, anemia, altered mental status, however is clearing and would benefit from rehabilitation interventions to regain optimal functional independence. PLAN: 1. Rehab- PT/OT advance gait and ADls, strengthen/stretch/maintain ROM all 4 limbs 2. Neuro- Continue Lactulose for chronic metabolic encephalopathy. REPRODUCER orientation, cognitive processing 3. Ortho- THR hip precautions, LAITH, ASA 4. Cardiac- Shifted position of heart,Longstanding Murmur, s/p pacemaker 2007 Dr. Ravi, Dr. Watts for bradycardia, stable cardiac function -HTN c/u BP meds 5. Resp right pleural effusion with hx under-inflated lung from prior thoracentesis 2018 incentive spirometry, monitor for need of oxygen supplementation, RT, possible infection- repeat CXR 03-03-20 showing unchanged right sided pleural effusion which may appear larger on CXR due to underinflation of lung and shifted heart position- patients weight improving and endurance in therapy also improving -Duonebs ordered 6. Endo- hx of DM, stable on 7. - monitor PVRs 8. GI ppx-concern for possible GI bleed while on ASA which was changed to EC , c/u increased omeprazole BID and sucralfate, continue Lactulose, Spironolactone- FOBT negative 9. Hyponatremia- renal following, patient's diuretics increased and fluid restriction, loosened, recs and interventions appreciated 10. Pain- c./u tramadol, judicious use of tylenol in setting of cirrhosis -lidoderm patch to right knee 9. DVT prophylaxis ASA BID 10. Heme- patient with fluctuating H/H s/p 1 unit rbc 03-03-20-stable -s/p VEnofer per renal 11. Dispo- patient is participating well in therapy, but will likely need longer period of therapy at short term rehab in order to be able to go home alone safely-awaiting bed at [facility], c/u to make gains and require intensive therapy and close medical management Allergies Coded Allergies: No Known Drug Allergies (Verified Allergy, Unknown, 02/25/20) meperidine (Verified Adverse Reaction, Mild, N/V, 02/25/20) Vital Signs Vital Signs Date Time Temp Pulse Resp B/P (MAP) Pulse Ox O2 Delivery O2 Flow Rate FiO2 03/17/20 09:08 20 Room Air 03/17/20 06:00 97.2 74 115/56 (75) 95 Laboratory Data Labs 24H Laboratory Tests 2 03/16/20 16:19: Bedside Glucose (Misc Panel) 165H 03/16/20 19:57: Bedside Glucose (Misc Panel) 192H 03/17/20 05:22: Bedside Glucose (Misc Panel) 86 03/17/20 11:09: Bedside Glucose (Misc Panel) 215H Current Medications Current Medications Current Medications Medications (Trade) Dose Ordered Sig/Paige Route PRN Reason Start Time Stop Time Status Last Admin Dose Admin Acetaminophen (Tylenol Tab) 650 mg Q6HP PRN PO PAIN / FEVER 02/27/20 17:45 03/02/20 11:08 DC 02/28/20 21:50 Acetaminophen (Tylenol Tab) 650 mg Q6HP PRN PO MILD PAIN, FEVER 03/02/20 11:15 03/11/20 13:15 DC 03/02/20 21:12 Acetaminophen (Tylenol Tab) 650 mg TID PO 03/11/20 13:30 03/17/20 09:07 Albuterol/ Ipratropium (Duoneb (Ipr 0.5mg/Alb 2.5mg)) 3 ml RQID NEB 03/02/20 12:00 03/17/20 07:18 Aspirin (Aspirin Chewable) 81 mg BID PO 02/27/20 21:00 03/02/20 09:57 DC 03/02/20 09:02 Aspirin (Ecotrin) 81 mg BID PO 03/02/20 21:00 03/17/20 09:06 Calcium Polycarbophil (Fiber Con) 1 ea DAILY PO 02/28/20 09:00 03/17/20 09:07 Dextrose (Dextrose 50%) 25 ml ASDIRECTED PRN IV SEE LABEL COMMENTS 02/27/20 17:45 Glucagon (Glucagon) 1 mg ASDIRECTED PRN SC SEE LABEL COMMENTS 02/27/20 17:45 Glucose (Glucose) 16 GM ASDIRECTED PRN PO SEE LABEL COMMENTS 02/27/20 17:45 Home Med (Med Rec Complete!) ASDIRECTED XX 02/27/20 18:00 02/27/20 18:00 DC Insulin Detemir (Levemir Insulin) 10 units BID SC 02/27/20 21:00 03/03/20 09:34 DC 03/03/20 08:35 Insulin Detemir (Levemir Insulin) 10 units QHS SC 03/03/20 21:00 03/10/20 08:03 DC 03/09/20 21:40 Insulin Detemir (Levemir Insulin) 15 units DAILY SC 03/04/20 09:00 03/16/20 08:31 Insulin Detemir (Levemir Insulin) 15 units QHS SC 03/10/20 21:00 03/16/20 21:58 Insulin Human Lispro (HumaLOG INSULIN) See Protocol Table AC SC 02/27/20 17:30 03/16/20 17:02 Insulin Human Lispro (HumaLOG INSULIN) See Protocol Table QHS SC 02/27/20 21:00 03/14/20 21:24 Iron (Venofer) 100 mg DAILY IV 03/06/20 09:00 03/05/20 19:16 DC Iron 100 mg/ Sodium Chloride 100 ml @ 100 mls/hr Q24H IV 03/06/20 09:00 03/08/20 09:59 DC 03/08/20 09:01 Lactulose (Cephulac) 15 ml DAILY PO 02/28/20 09:00 03/12/20 11:33 DC 03/12/20 08:10 Lactulose (Cephulac) 30 ml DAILY PO 03/13/20 09:00 03/17/20 09:06 Levalbuterol HCl (Xopenex Hfa) 2 puff Q4HP PRN INH SHORTNESS OF BREATH 02/27/20 17:45 Lidocaine (Lidoderm Patch) 1 patch DAILY TD 03/05/20 09:00 03/17/20 09:09 Miscellaneous (Unresolved Clarification Entry) SEE LABEL COMMENTS DAILY XX 03/15/20 09:00 03/15/20 13:03 DC Non-Formulary Medication ( See Comment Field Below ) REMOVE LIDODERM PATCH DAILY@21 XX 03/05/20 21:00 03/16/20 21:58 Omeprazole (PriLOSEC) 20 mg BID PO 03/02/20 21:00 03/17/20 09:08 Omeprazole (PriLOSEC) 20 mg DAILY PO 02/28/20 09:00 03/02/20 09:55 DC 03/02/20 09:01 Ondansetron HCl (Zofran) 4 mg Q8HP PRN PO NAUSEA OR VOMITING 02/27/20 17:45 Potassium Chloride (Micro-K Extencaps) 10 meq BID PO 03/09/20 21:00 03/17/20 09:08 Sodium Chloride (Sodium Chloride) 2 gm BID PO 02/28/20 09:00 03/02/20 08:59 DC 03/01/20 20:37 Spironolactone (Aldactone) 12.5 mg DAILY PO 02/28/20 09:00 03/05/20 19:02 DC 03/05/20 09:34 Spironolactone (Aldactone) 25 mg DAILY PO 03/06/20 09:00 03/09/20 08:56 DC 03/09/20 08:51 Spironolactone (Aldactone) 50 mg DAILY PO 03/10/20 09:00 03/17/20 09:08 Sucralfate (Carafate) 1 gm BID@0730,1730 PO 03/02/20 07:30 03/17/20 09:07 Torsemide (Demadex) 10 mg DAILY@1700 PO 03/06/20 17:00 03/09/20 08:56 DC 03/08/20 17:46 Torsemide (Demadex) 20 mg DAILY PO 02/29/20 09:00 03/09/20 08:56 DC 03/09/20 08:54 Torsemide (Demadex) 40 mg BID@0900,1700 PO 03/14/20 17:00 03/17/20 09:09 Torsemide (Demadex) 40 mg DAILY PO 03/10/20 09:00 03/14/20 12:06 DC 03/14/20 08:14 Tramadol HCl (Ultram) 50 mg DAILY@0800 PO 03/03/20 08:00 03/17/20 09:08 Tramadol HCl (Ultram) 50 mg Q6HP PRN PO MODERATE PAIN (PS 5-7) 02/27/20 17:45 03/15/20 20:42 DEDE ARMSTRONG MD Mar 17, 2020 11:46
[2020-03-17 14:00] VITALS: BP 115/58
[2020-03-17 21:00] VITALS: BP 116/54
[2020-03-17] MEDS: **NOTE PATIENT COMMENT** MISC XX SCH (22:01)
[2020-03-18 05:30] VITALS: BP 150/70
[2020-03-18] MEDS: IPRATROPIUM 0.5MG/ALBUTEROL 2.5MG INH SOL UD 3ML (DUONEB) NEB SCH ×3 (07:43→20:00)
[2020-03-18] MEDS: LACTULOSE 20 GM/30 ML SYRUP UD PO SCH (09:14)
[2020-03-18] MEDS: ASPIRIN 81 MG ENTERIC TAB PO SCH ×2 (09:15→20:26)
[2020-03-18] MEDS: TORSEMIDE 20 MG TAB PO SCH ×2 (09:15→17:08)
[2020-03-18] MEDS: SUCRALFATE 1 GM TAB PO SCH ×2 (09:17→17:08)
[2020-03-18] MEDS: HumaLOG INSULIN (NovoLOG) PER UNIT SC SCH ×4 (09:17→21:39)
[2020-03-18] MEDS: traMADol 50 MG TAB PO SCH (09:18)
[2020-03-18] MEDS: FIBER-CON 625 MG TAB PO SCH (09:18)
[2020-03-18] MEDS: OMEPRAZOLE 20 MG CAP PO SCH ×2 (09:18→20:26)
[2020-03-18] MEDS: SPIRONOLACTONE 50 MG TAB PO SCH (09:18)
[2020-03-18] MEDS: POTASSIUM CHLORIDE 10 MEQ SR TABLET PO SCH ×2 (09:18→20:26)
[2020-03-18] MEDS: LIDOCAINE 5% (LIDODERM) PATCH TD SCH (09:19)
[2020-03-18] MEDS: LEVEMIR (INSULIN DETEMIR) 1 UNITS/0.01ML SC SCH ×2 (09:19→21:38)
[2020-03-18] MEDS: ACETAMINOPHEN TAB 650MG DOSE (2X325MG) PO SCH ×3 (09:19→20:26)
--- NOTE | 2020-03-18 09:32 | IPNPDOC ---
PM&R Progress Note Methods And Procedures Analyst Progress Note DATE OF ADMISSION: Feb 27, 2020 at 15:45 INPATIENT REHABILITATION ADMISSION DAY: # SUBJECTIVE: Patient is a -year-old with . ALLERGIES: See Below MEDICATIONS: Reviewed, see below. OBJECTIVE: VITAL SIGNS: Please see below. PHYSICAL EXAMINATION: GENERAL: [Cachectic, well developed, sitting up in bed, no acute distress]. HEENT: [Normocephalic, atraumatic]. [No facial droop]. [Poor dentition, missing teeth. PERRL, EOMI]. CARDIOVASCULAR: [S1, S2, irregular rate]. [No lower limb edema or calf tenderness]. LUNGS: [Decreased breath sounds, coarse throughout]. ABDOMEN: [Soft, nontender, nondistended. Normoactive bowel sounds throughout]. MUSCULOSKELETAL: MMT: /5 strength proximally bilateral shoulder abduction, forward flexion and bilateral hip flexion. /5 strength bilateral elbow flexion, knee flexion, /5 bilateral elbow extension and knee extension. /5 mid wife, dorsiflexion, plantar flexion. NEUROLOGICAL: [Alert and oriented times three]. [Answers all question appropriately]. SKIN: . LABORATORY DATA: Reviewed. Please see below. MICROBIOLOGY: Please see below. IMAGING: ASSESSMENT AND PLAN: 1. . 2. . 3. . TIME SPENT: Chart Review, examination and documentation minutes. Allergies Coded Allergies: No Known Drug Allergies (Verified Allergy, Unknown, 02/25/20) meperidine (Verified Adverse Reaction, Mild, N/V, 02/25/20) Vital Signs Vital Signs Date Time Temp Pulse Resp B/P (MAP) Pulse Ox O2 Delivery O2 Flow Rate FiO2 03/18/20 09:18 19 03/18/20 05:30 98.7 85 150/70 (96) 98 Room Air Laboratory Data Labs 24H Laboratory Tests 2 03/17/20 11:09: Bedside Glucose (Misc Panel) 215H 03/17/20 16:22: Bedside Glucose (Misc Panel) 292H 03/17/20 19:42: Bedside Glucose (Misc Panel) 342H 03/18/20 05:20: Bedside Glucose (Misc Panel) 133H Current Medications Current Medications Current Medications Medications (Trade) Dose Ordered Sig/Paige Route PRN Reason Start Time Stop Time Status Last Admin Dose Admin Acetaminophen (Tylenol Tab) 650 mg Q6HP PRN PO PAIN / FEVER 02/27/20 17:45 12/7/20 11:08 DC 02/28/20 21:50 Acetaminophen (Tylenol Tab) 650 mg Q6HP PRN PO MILD PAIN, FEVER 03/02/20 11:15 03/11/20 13:15 DC 03/02/20 21:12 Acetaminophen (Tylenol Tab) 650 mg TID PO 03/11/20 13:30 03/18/20 09:19 Albuterol/ Ipratropium (Duoneb (Ipr 0.5mg/Alb 2.5mg)) 3 ml RQID NEB 03/02/20 12:00 03/18/20 07:43 Aspirin (Aspirin Chewable) 81 mg BID PO 02/27/20 21:00 03/02/20 09:57 DC 03/02/20 09:02 Aspirin (Ecotrin) 81 mg BID PO 03/02/20 21:00 03/18/20 09:15 Calcium Polycarbophil (Fiber Con) 1 ea DAILY PO 02/28/20 09:00 03/18/20 09:18 Dextrose (Dextrose 50%) 25 ml ASDIRECTED PRN IV SEE LABEL COMMENTS 02/27/20 17:45 Glucagon (Glucagon) 1 mg ASDIRECTED PRN SC SEE LABEL COMMENTS 02/27/20 17:45 Glucose (Glucose) 16 GM ASDIRECTED PRN PO SEE LABEL COMMENTS 02/27/20 17:45 Home Med (Med Rec Complete!) ASDIRECTED XX 02/27/20 18:00 02/27/20 18:00 DC Insulin Detemir (Levemir Insulin) 10 units BID SC 02/27/20 21:00 03/03/20 09:34 DC 03/03/20 08:35 Insulin Detemir (Levemir Insulin) 10 units QHS SC 03/03/20 21:00 03/10/20 08:03 DC 03/09/20 21:40 Insulin Detemir (Levemir Insulin) 15 units DAILY SC 03/04/20 09:00 03/18/20 09:19 Insulin Detemir (Levemir Insulin) 15 units QHS SC 03/10/20 21:00 03/17/20 22:01 Insulin Human Lispro (HumaLOG INSULIN) See Protocol Table AC SC 02/27/20 17:30 03/18/20 09:17 Insulin Human Lispro (HumaLOG INSULIN) See Protocol Table QHS SC 02/27/20 21:00 03/17/20 22:01 Iron (Venofer) 100 mg DAILY IV 03/06/20 09:00 03/05/20 19:16 DC Iron 100 mg/ Sodium Chloride 100 ml @ 100 mls/hr Q24H IV 03/06/20 09:00 03/08/20 09:59 DC 03/08/20 09:01 Lactulose (Cephulac) 15 ml DAILY PO 02/28/20 09:00 03/12/20 11:33 DC 03/12/20 08:10 Lactulose (Cephulac) 30 ml DAILY PO 03/13/20 09:00 03/18/20 09:14 Levalbuterol HCl (Xopenex Hfa) 2 puff Q4HP PRN INH SHORTNESS OF BREATH 02/27/20 17:45 Lidocaine (Lidoderm Patch) 1 patch DAILY TD 03/05/20 09:00 03/18/20 09:19 Miscellaneous (Unresolved Clarification Entry) SEE LABEL COMMENTS DAILY XX 03/15/20 09:00 03/15/20 13:03 DC Non-Formulary Medication ( See Comment Field Below ) REMOVE LIDODERM PATCH DAILY@21 XX 03/05/20 21:00 03/17/20 22:01 Omeprazole (PriLOSEC) 20 mg BID PO 03/02/20 21:00 03/18/20 09:18 Omeprazole (PriLOSEC) 20 mg DAILY PO 02/28/20 09:00 03/02/20 09:55 DC 03/02/20 09:01 Ondansetron HCl (Zofran) 4 mg Q8HP PRN PO NAUSEA OR VOMITING 02/27/20 17:45 Potassium Chloride (Micro-K Extencaps) 10 meq BID PO 03/09/20 21:00 03/18/20 09:18 Sodium Chloride (Sodium Chloride) 2 gm BID PO 02/28/20 09:00 03/02/20 08:59 DC 03/01/20 20:37 Spironolactone (Aldactone) 12.5 mg DAILY PO 02/28/20 09:00 03/05/20 19:02 DC 03/05/20 09:34 Spironolactone (Aldactone) 25 mg DAILY PO 03/06/20 09:00 03/09/20 08:56 DC 03/09/20 08:51 Spironolactone (Aldactone) 50 mg DAILY PO 03/10/20 09:00 03/18/20 09:18 Sucralfate (Carafate) 1 gm BID@0730,1730 PO 03/02/20 07:30 03/18/20 09:17 Torsemide (Demadex) 10 mg DAILY@1700 PO 03/06/20 17:00 03/09/20 08:56 CA 03/08/20 17:46 Torsemide (Demadex) 20 mg DAILY PO 02/29/20 09:00 03/09/20 08:56 CA 03/09/20 08:54 Torsemide (Demadex) 40 mg BID@0900,1700 PO 03/14/20 17:00 03/18/20 09:15 Torsemide (Demadex) 40 mg DAILY PO 03/10/20 09:00 03/14/20 12:06 CA 03/14/20 08:14 Tramadol HCl (Ultram) 50 mg DAILY@0800 PO 03/03/20 08:00 03/18/20 09:18 Tramadol HCl (Ultram) 50 mg Q6HP PRN PO MODERATE PAIN (PS 5-7) 02/27/20 17:45 03/15/20 20:42 DEDE ARMSTRONG MD Mar 18, 2020 09:32
[2020-03-18 10:22] LABS: BASO % 0.7 % (0.0-1.0); EOS # 0.1 10^3/uL (0.0-0.5); EOS % 1.6 % (0.0-3.0); HEMATOCRIT 30.1 % (36.0-47.0); HEMOGLOBIN 9.5 g/dl (12.0-15.5); LYMPH # 0.4 10^3/uL (1.5-5.0); MEAN CORPUSCULAR HEMOGLOBIN 33.3 pg (27.0-33.0); MEAN CORPUSCULAR HGB CONC 31.6 g/dl (32.0-36.5); MEAN CORPUSCULAR VOLUME 105.6 fl (80.0-96.0); MONO # 0.8 10^3/uL (0.0-0.8); MONO % 13.9 % (0.0-5.0); NEUTROPHILS # 4.4 10^3/uL (1.5-8.5); NEUTROPHILS % 76.3 % (36.0-66.0); PLATELET COUNT, AUTOMATED 158 10^3/uL (150-450); RED BLOOD COUNT 2.85 10^6/uL (4.00-5.40); WHITE BLOOD COUNT 5.7 10^3/uL (4.0-10.0)
[2020-03-18 10:39] LABS: CREATININE FOR GFR 1.18 MG/DL (0.55-1.30); GLOMERULAR FILTRATION RATE 46.5 (>32)
[2020-03-18] MEDS ORDERED: POTASSIUM CHLORIDE 10 MEQ SR TABLET PO ONE (13:00)
[2020-03-18 14:00] VITALS: BP 128/68
[2020-03-18] MEDS ORDERED: metOLazone 2.5 MG TAB PO ONE (14:00)
[2020-03-18 20:00] VITALS: BP 137/66
[2020-03-18] MEDS: traMADol 50 MG TAB PO PRN (20:26)
[2020-03-18] MEDS: **NOTE PATIENT COMMENT** MISC XX SCH (20:27)
[2020-03-19 05:45] VITALS: BP 116/63
[2020-03-19] MEDS: IPRATROPIUM 0.5MG/ALBUTEROL 2.5MG INH SOL UD 3ML (DUONEB) NEB SCH ×4 (07:17→19:35)
--- NOTE | 2020-03-19 08:49 | IPN ---
PROGRESS NOTE DATE: 03/18/2020 SUBJECTIVE: The patient was seen and examined at the bedside today morning in the rehab unit. She denies any active complaints. She is tolerating the current dose of diuretics. Lower extremity edema is persistent but very slowly improving. Her renal function is stable. OBJECTIVE: VITAL SIGNS: Temperature is 98.9 degrees Fahrenheit, blood pressure is 128/68, pulse is 79, respiratory rate of 19, saturating 97% on room air. INTAKE AND OUTPUT: Urine output is not recorded. She has had 10 voids so far since overnight. Weight on the bed scale is 69.6 kg. GENERAL: The patient is awake, alert and oriented x3, sitting up in the bed in no apparent distress. HEAD AND NECK: Extraocular muscles intact. Pupils are equally round and reactive to light. Mucous membranes are moist. Neck is supple. Mildly elevated JVD. CARDIOVASCULAR: S1 and S2, regular rate. There is 2+ edema of the bilateral lower extremities all the way up to the thighs. RESPIRATORY: Chest is clear to auscultation bilaterally. Bilateral equal air entry. No rales or rhonchi. ABDOMEN: Soft, positive bowel sounds. Nontender. No organomegaly. MUSCULOSKELETAL: Edema of the lower extremities. Bruising of the right knee and right hip was noted. PIANO ACCOMPANIST: No focal deficits. Power is 5/5 in bilateral upper extremities. LABORATORY DATA: CBC showed a WBC of 5.7, hemoglobin 9.5, platelets are 158,000. BMP showed a sodium of 128, potassium 4, chloride 89, bicarbonate 32, BUN 22, creatinine is 1.18. Calcium is 9. CURRENT INPATIENT MEDICATIONS: The patient's medications were all reviewed by myself. I gave her a dose of metolazone 2.5 mg p.o. x1 dose today. I have increased her torsemide to 50 mg p.o. twice a day. She continues to be on spironolactone 50 mg p.o. daily. She was also given a dose of potassium chloride 40 mEq in addition to the 10 mEq twice a day that she is already getting. ASSESSMENT AND PLAN: 1. Persistent lower extremity edema. The patient is already on torsemide 40 mg p.o. twice a day with spironolactone 50 mg, however she has persistent edema. I added metolazone for sequential nephron blockade and torsemide dose has been increased to 50 mg p.o. twice a day. 2. Hypervolemic hyponatremia. Patient still has significant edema in the lower extremities, diuretic dose has been increased as mentioned above. 3. Anemia and chronic kidney disease, hemoglobin level is stable. If it drops below 8 then she will be started on Aranesp.
[2020-03-19] MEDS: LIDOCAINE 5% (LIDODERM) PATCH TD SCH (09:00)
[2020-03-19] MEDS: LACTULOSE 20 GM/30 ML SYRUP UD PO SCH (09:21)
[2020-03-19] MEDS: SPIRONOLACTONE 50 MG TAB PO SCH (09:21)
[2020-03-19] MEDS: HumaLOG INSULIN (NovoLOG) PER UNIT SC SCH ×4 (09:22→20:00)
[2020-03-19] MEDS: POTASSIUM CHLORIDE 10 MEQ SR TABLET PO SCH ×2 (09:23→20:09)
[2020-03-19] MEDS: LEVEMIR (INSULIN DETEMIR) 1 UNITS/0.01ML SC SCH ×2 (09:23→20:11)
[2020-03-19] MEDS: ASPIRIN 81 MG ENTERIC TAB PO SCH ×2 (09:24→20:08)
[2020-03-19] MEDS: ACETAMINOPHEN TAB 650MG DOSE (2X325MG) PO SCH ×3 (09:24→20:10)
[2020-03-19] MEDS: traMADol 50 MG TAB PO SCH (09:24)
[2020-03-19] MEDS: FIBER-CON 625 MG TAB PO SCH (09:24)
[2020-03-19] MEDS: OMEPRAZOLE 20 MG CAP PO SCH ×2 (09:25→20:09)
[2020-03-19] MEDS: TORSEMIDE (DEMADEX) 50 MG PER 1/2 TAB PO SCH ×2 (09:25→17:39)
[2020-03-19] MEDS: SUCRALFATE 1 GM TAB PO SCH ×2 (09:25→17:39)
[2020-03-19] MEDS ORDERED: metOLazone 2.5 MG TAB PO ONE (13:00)
[2020-03-19 13:45] VITALS: BP 114/59
[2020-03-19 20:00] VITALS: BP 108/60
[2020-03-19] MEDS: traMADol 50 MG TAB PO PRN (20:10)
[2020-03-19] MEDS: **NOTE PATIENT COMMENT** MISC XX SCH (20:12)
[2020-03-20 05:41] VITALS: BP 120/61
[2020-03-20 07:11] LABS: BASO % 0.7 % (0.0-1.0); EOS # 0.1 10^3/uL (0.0-0.5); EOS % 1.6 % (0.0-3.0); HEMOGLOBIN 10.5 g/dl (12.0-15.5); LYMPH # 0.6 10^3/uL (1.5-5.0); LYMPH % 9.9 % (24.0-44.0); MEAN CORPUSCULAR HEMOGLOBIN 33.2 pg (27.0-33.0); MEAN CORPUSCULAR HGB CONC 31.8 g/dl (32.0-36.5); MEAN CORPUSCULAR VOLUME 104.4 fl (80.0-96.0); MONO % 15.8 % (0.0-5.0); NEUTROPHILS # 4.4 10^3/uL (1.5-8.5); NEUTROPHILS % 71.7 % (36.0-66.0); PLATELET COUNT, AUTOMATED 193 10^3/uL (150-450); RED BLOOD COUNT 3.16 10^6/uL (4.00-5.40); WHITE BLOOD COUNT 6.1 10^3/uL (4.0-10.0)
[2020-03-20] MEDS: IPRATROPIUM 0.5MG/ALBUTEROL 2.5MG INH SOL UD 3ML (DUONEB) NEB SCH ×4 (07:23→20:00)
[2020-03-20 07:34] LABS: CALCIUM LEVEL 9.7 MG/DL (8.8-10.2); CREATININE FOR GFR 1.28 MG/DL (0.55-1.30); GLOMERULAR FILTRATION RATE 42.3 (>32); MAGNESIUM LEVEL 2.1 MG/DL (1.8-2.4); POTASSIUM SERUM 3.9 MEQ/L (3.5-5.1)
[2020-03-20] MEDS: LEVEMIR (INSULIN DETEMIR) 1 UNITS/0.01ML SC SCH ×2 (08:44→20:53)
[2020-03-20] MEDS: LACTULOSE 20 GM/30 ML SYRUP UD PO SCH (08:45)
[2020-03-20] MEDS: FIBER-CON 625 MG TAB PO SCH (08:45)
[2020-03-20] MEDS: HumaLOG INSULIN (NovoLOG) PER UNIT SC SCH ×4 (08:45→21:00)
[2020-03-20] MEDS: ASPIRIN 81 MG ENTERIC TAB PO SCH ×2 (08:45→20:52)
[2020-03-20] MEDS: SPIRONOLACTONE 50 MG TAB PO SCH (08:45)
[2020-03-20] MEDS: OMEPRAZOLE 20 MG CAP PO SCH ×2 (08:45→20:53)
[2020-03-20] MEDS: SUCRALFATE 1 GM TAB PO SCH ×2 (08:46→16:27)
[2020-03-20] MEDS: CEPHALEXIN 500 MG CAP PO SCH ×3 (08:46→16:27)
[2020-03-20] MEDS: LIDOCAINE 5% (LIDODERM) PATCH TD SCH (08:46)
[2020-03-20] MEDS: TORSEMIDE (DEMADEX) 50 MG PER 1/2 TAB PO SCH ×2 (08:46→16:27)
[2020-03-20] MEDS: traMADol 50 MG TAB PO SCH (08:47)
[2020-03-20] MEDS: ACETAMINOPHEN TAB 650MG DOSE (2X325MG) PO SCH ×3 (08:47→20:52)
[2020-03-20] MEDS: POTASSIUM CHLORIDE 10 MEQ SR TABLET PO SCH ×2 (08:48→20:53)
[2020-03-20 10:13] LABS: C REACTIVE PROTEIN QUANTITATIV 9.1 MG/DL (0.00-0.30)
[2020-03-20 10:30] LABS: ERYTHROCYTE SEDIMENTATION RATE 60 mm/hr (0-30)
[2020-03-20 14:00] VITALS: BP 111/61
[2020-03-20] MEDS ORDERED: metOLazone 2.5 MG TAB PO ONE (14:00)
--- NOTE | 2020-03-20 14:44 | IPN ---
PROGRESS NOTE DATE: 03/19/2020 SUBJECTIVE: Patient was seen and examined at the bedside today morning in the rehabilitation unit. She denies any active complaints apart from mild persistent lower extremity edema and right hip pain. Her diuretic dose was increased yesterday. OBJECTIVE: Vital signs: Temperature is 98.3 degrees Fahrenheit, blood pressure 114/59, pulse is 80, respiratory rate of 22, saturating 92% on room air. Intake and output: Urine output is not recorded well. She has some incontinent voids as well. Weight in the bed scale is 69.6 kg, which is stable as yesterday. PHYSICAL EXAMINATION: GENERAL: Patient is awake, alert, oriented times two, lying in bed in no apparent distress. HEAD AND NECK: Extraocular muscles intact. Pupils equally round and reactive to light. Mucous membranes are moist. Neck is supple. There is no jugular venous distention (JVD). CARDIOVASCULAR: S1, S2, regular rate. Edema 2+ of the bilateral lower extremities starting from ankles all the way up to thighs. RESPIRATORY: Chest is clear to auscultation bilaterally. Bilateral equal air entry. No rales or rhonchi. ABDOMEN: Soft. Positive bowel sounds. Nontender. No organomegaly. MUSCULOSKELETAL: Bruising of the right knee and right hip area and edema of the lower extremities, as mentioned above. CENTRAL NERVOUS SYSTEM: No focal deficit. Power is 5/5 in bilateral upper extremities. LABORATORY REVIEW: CBC is from yesterday. BMP is also from yesterday. CURRENT INPATIENT MEDICATIONS: Patient's medications were all reviewed by myself. She is on torsemide 50 mg by mouth twice a day. Dose was increased just today morning. I also gave her a dose of metolazone, and she continues to be on spironolactone 50 mg by mouth daily. ASSESSMENT AND PLAN: 1. Persistent lower extremity edema. As mentioned above, her torsemide dose has been increased, and she was also given dose of metolazone for sequential nephron blockade. Continue to monitor intake and output. If she does not respond to the oral diuretics, then she will be started on intravenous (IV) diuretic. 2. Hypervolemic hyponatremia. Basic metabolic profile (BMP) is not available today. It could be checked tomorrow morning. Continue diuretics as mentioned above 3. Anemia and chronic kidney disease. Hemoglobin level is stable at 9.5 as per recent labs. 4. Chronic kidney disease, stage III. Renal function is stable despite aggressive diuretics. Creatinine has been fluctuating at around 1.1.
--- NOTE | 2020-03-20 15:19 | REP ---
INDICATION: drainage Status post arthroplasty. COMPARISON: 02/26/2020 TECHNIQUE: AP and frog-lateral views. FINDINGS: The patient is status post right hip replacement with normal positioning and appearance to the femoral and acetabular components. Overlying postsurgical changes appreciated. IMPRESSION: Satisfactory hip replacement radiographs. <Electronically signed by Glenn Mohr > 03/20/20 0121
--- NOTE | 2020-03-20 18:19 | IPNPDOC ---
Text Note Date of Service The patient was seen on 03/20/20. NOTE Subjective:. No any acute events overnight. Patient continues to have moderate right hip pain. Objective: GENERAL APPEARANCE: NAD HEENT: no scleral icterus, no JVD, EOMI CARDIOVASCULAR: S1S2 LUNGS: Diminished lung sounds bilaterally ABDOMEN: soft & not tender w palpitation MUSCULOSKELETAL: +2 pitting edema of lower extremities bilaterally, right hip area covered with dressing soaked with serosanguineous discharge INTEGUMENT: no generalized palor NEUROLOGICAL: cranial nerve function from 2-12 intact intact, follows commands, speech not dysarthric Assessment and plan Patient is an 84 year old female with cirrhosis, DM2, and bradycardia s/p pacemaker transferred here from [facility] transferred here for a mechanical fall with subsequent right hip fracture. Patient had completed rehabilitation in [facility] and was discharged on 02/23. On the same day of discharge, she had mechanical fall on her right side and had severe pain. Patient went to [facility] for further evaluation and was transferred here for orthopedic evaluation. During pre-op workup, it was noted that she had right pleural effusion. Discussed with pulmonary about case. In 2018, patient had a right thoracentesis and right lung has not re-expanded afterwards. 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 The pleural effusion in the CXR is actually the heart shifted to the right, and the effusion is mild. Patient went to surgery on 02/26/2020. Aspirin 81mg BID for 35 days for DVT ppx. The following day, she was discharged to ARU. Right femoral neck fracture 2/2 mechanical fall -Went to the OR on 02/26/2020 for a right hemiarthroplasty of the hip -Now in ARU for rehabilitation There is concern for infected surgical wound after right hip replacement. Orthopedic team plans incision and drainage tomorrow. Patient stable and clear for this procedure. Patient doesn't have leukocytosis, she is normotensive Right entrapped lung Thoracentesis in 2018 did not re-expand lung Finding are chronic Saturating well at room air Will repeat chest x-ray 3. Cirrhosis Continue diuresis 4. DM Continue insulin sliding scale and levemir 5. Pacemaker Placed for recurrent syncopal episode due to bradycardia. [place] [address] Ravi and Dr[address] Watts 6. GERD Continue omeprazole 7 Anemia and chronic kidney disease. Hemoglobin level is stable VS,Fishbone, I+O VS, Fishbone, I+O Laboratory Tests 03/20/20 06:28 Vital Signs Date Time Temp Pulse Resp B/P (MAP) Pulse Ox O2 Delivery O2 Flow Rate FiO2 03/20/20 14:00 96.8 70 18 111/61 (78) 96 Room Air I&O- Last 24 Hours up to 6 AM 03/20/20 05:59 Intake Total 1170 ml Output Total 1975 ml Balance -805 ml CHRISTA LUU DO Mar 20, 2020 18:19
--- NOTE | 2020-03-20 18:52 | REP ---
INDICATION: preop COMPARISON: 03/04/2020, 02/25/2020 TECHNIQUE: PA and lateral. FINDINGS: Pleuroparenchymal changes involving the right hemithorax with suspected large pleural effusion and underlying parenchymal opacities as well as associated volume loss with ipsilateral mediastinal shift appears relatively unchanged as compared through 02/25/2020. Left hemithorax is well aerated and clear. IMPRESSION: Right-sided pleuroparenchymal changes including suspected large pleural effusion are relatively unchanged compared through 02/25/2020. No further prior examinations are available for comparison and no associated chest CT is available for more detailed analysis. <Electronically signed by Glenn Mohr > 03/20/20 1136
[2020-03-20] MEDS: ceFAZolin SOD 2 GM in IV 1 EA IV SCH (18:54)
[2020-03-20 20:30] VITALS: BP 110/61
[2020-03-20] MEDS: **NOTE PATIENT COMMENT** MISC XX SCH (20:54)
--- NOTE | 2020-03-20 21:55 | IPN ---
NEPHROLOGY PROGRESS NOTE DATE: 03/20/5020 SUBJECTIVE: The patient was seen and examined at the bedside today morning in the Rehab Unit. She was laying in the bed. She denies any active complaints apart from lower extremity edema and mild pain in the right hip. She continues to be on high dose diuretics. Edema is slowly improving and renal function has stayed stable. OBJECTIVE: VITAL SIGNS: Temperature is 96.8 degrees Fahrenheit, blood pressure is 111/61, pulse is 70, respiratory rate of 18, saturating 96% on room air. INTAKE AND OUTPUT: Urine output recorded as 1.9 liters yesterday; 875 mL so far today. Weight in the bed scale is 67.9 kg which is lower than her weight yesterday. PHYSICAL EXAMINATION: GENERAL APPEARANCE: The patient is awake, alert, oriented x2, laying in bed in no apparent distress. HEAD AND NECK: Extraocular muscles intact. Pupils are equally round and reactive to light. Mucous membranes are moist. Neck is supple. There is no significant jugular venous distention. CARDIOVASCULAR: S1, S2, regular rate. EXTREMITIES: 2+ edema of the bilateral lower extremities. Right is worst than left. RESPIRATORY: Chest is clear to auscultation bilaterally. Bilaterally currently no rales or rhonchi. ABDOMEN: Soft, positive bowel sounds, nontender, no organomegaly. MUSCULOSKELETAL: Mildly decreased any movement of the right hip and bruising of the right knee and right hip area and edema of the extremities as mentioned above. 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 Power is 5/5 in bilateral upper extremities. LAB REVIEW: CBC showed a WBC of 6.1, hemoglobin 10.5, platelets are 193. BMP showed a sodium of 130, potassium 3.9, chloride is 80, bicarbonate is 38, BUN 28, creatinine is 1.2. Calcium 9.7, magnesium is 2.1. C-reactive protein is 9.1. CURRENT INPATIENT MEDICATIONS: The patient's medications were all reviewed by myself. She is currently on Torsemide 50 mg p.o. twice daily, Spironolactone 50 mg daily. And she was given an extra dose of Metolazone 2.5 mg today morning. ASSESSMENT AND PLAN: 1. Persistent lower extremity edema her diuretic regimen has been increased. Continue the current regimen for now and monitor intake and output. Weight and edema is slowly improving. 2. Hypervolemic hyponatremia - sodium level is improving with the diuretics. Continue the fluid restriction now. 3. Anemia and chronic kidney disease - hemoglobin level is stable and improving. No need of Aranesp administration at this time. 4. Metabolic alkalosis - The patient has mild metabolic alkalosis secondary to aggressive diuretics. If bicarbonate level goes up tomorrow morning, then diuretic dose will be adjusted.
[2020-03-21] MEDS: ceFAZolin SOD 2 GM in IV 1 EA IV SCH ×2 (03:03→09:50)
[2020-03-21 05:30] VITALS: BP 110/66
[2020-03-21] MEDS: HumaLOG INSULIN (NovoLOG) PER UNIT SC SCH (07:30)
[2020-03-21] MEDS: SUCRALFATE 1 GM TAB PO SCH (07:30)
[2020-03-21] MEDS: IPRATROPIUM 0.5MG/ALBUTEROL 2.5MG INH SOL UD 3ML (DUONEB) NEB SCH ×2 (08:00→11:20)
[2020-03-21] MEDS: traMADol 50 MG TAB PO SCH (08:00)
[2020-03-21] MEDS: POTASSIUM CHLORIDE 10 MEQ SR TABLET PO SCH (08:02)
[2020-03-21] MEDS: SPIRONOLACTONE 50 MG TAB PO SCH (08:02)
[2020-03-21] MEDS: OMEPRAZOLE 20 MG CAP PO SCH (09:00)
[2020-03-21] MEDS: LEVEMIR (INSULIN DETEMIR) 1 UNITS/0.01ML SC SCH (09:00)
[2020-03-21] MEDS: FIBER-CON 625 MG TAB PO SCH (09:00)
[2020-03-21] MEDS: LACTULOSE 20 GM/30 ML SYRUP UD PO SCH (09:00)
[2020-03-21] MEDS: LIDOCAINE 5% (LIDODERM) PATCH TD SCH (09:00)
[2020-03-21] MEDS: ASPIRIN 81 MG ENTERIC TAB PO SCH (09:00)
[2020-03-21] MEDS: ACETAMINOPHEN TAB 650MG DOSE (2X325MG) PO SCH (09:00)
[2020-03-21] MEDS: TORSEMIDE (DEMADEX) 50 MG PER 1/2 TAB PO SCH (09:00)
[2020-03-21] MEDS ORDERED: VANCOMYCIN 1000MG/20ML VIAL XX ONE (10:34)
[2020-03-21] MEDS ORDERED: TOBRAMYCIN SULF 1.2 GM VIAL TOP ONE (10:40)
[2020-03-21] MEDS ORDERED: ONDANSETRON 4MG/2ML VIAL IV PRN (13:15)
[2020-03-21] MEDS ORDERED: fentaNYL 100 MCG/2 ML INJECTION (J3010) IV PRN (13:15)
[2020-03-21] MEDS ORDERED: PHENYLEPHRINE HCL INJ 10 MG in D5W 99 ML IV SCH (13:15)
[2020-03-21] MEDS ORDERED: oxyCODONE 5MG TAB PO PRN (13:15)
[2020-03-21] MEDS ORDERED: LR 1,000 ML IV SCH (13:15)
--- NOTE | 2020-03-21 15:07 | DS.PDOC ---
Discharge Summary General Date of Admission Feb 27, 2020 at 15:45 Date of Discharge 03/21/20 Discharge Summary PROCEDURES PERFORMED DURING STAY: [None]. ADMITTING DIAGNOSES: Right femoral neck fracture 2/2 mechanical fall Cirrhosis Right entrapped lung DM Pacemaker GERD Anemia and chronic kidney disease DISCHARGE DIAGNOSES: Right femoral neck fracture 2/2 mechanical fall Cirrhosis Right entrapped lung DM Pacemaker GERD Anemia and chronic kidney disease COMPLICATIONS/CHIEF COMPLAINT: R Fem Neck Fracture. HISTORY OF PRESENT ILLNESS: Patient is an 84 year old female with cirrhosis, DM2, and bradycardia s/p pacemaker transferred here from [facility] transferred here for a mechanical fall with subsequent right hip fracture. Patient had completed rehabilitation in [facility] and was discharged on 02/23. On the same day of discharge, she had mechanical fall on her right side and had severe pain. Patient went to [place] for further evaluation and was transferred here for orthopedic evaluation. During pre-op workup, it was noted that she had right pleural effusion. Discussed with pulmonary about case. In 2018, patient had a right thoracentesis and right lung has not re-expanded afterwards. 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 The pleural effusion in the CXR is actually the heart shifted to the right, and the effusion is mild. Patient went to surgery on 02/26/2020. Aspirin 81mg BID for 35 days for DVT ppx. The following day, she was discharged to ARU. HOSPITAL COURSE: During hospital stay the following issues addressed Right femoral neck fracture 2/2 mechanical fall -Went to the OR on 02/26/2020 for a right hemiarthroplasty of the hip -Now in ARU for rehabilitation There is concern for infected surgical wound after right hip replacement. Orthopedic team did incision and drainage today. Patient will be transferred to inpatient unit Right entrapped lung Thoracentesis in 2018 did not re-expand lung Finding are chronic Saturating well at room air 3. Cirrhosis Continue diuresis 4. DM Continue insulin sliding scale and levemir 5. Pacemaker Placed for recurrent syncopal episode due to bradycardia. [place] [address] Ravi and Dr[address] Watts 6. GERD Continue omeprazole 7 Anemia and chronic kidney disease. Hemoglobin level is stable DISCHARGE MEDICATIONS: Please see below. ALLERGIES: Please see below. PHYSICAL EXAMINATION ON DISCHARGE: VITAL SIGNS: Please see below. GENERAL APPEARANCE: NAD HEENT: no scleral icterus, no JVD, EOMI CARDIOVASCULAR: S1S2 LUNGS: Diminished lung sounds bilaterally ABDOMEN: soft & not tender w palpitation MUSCULOSKELETAL: +2 pitting edema of lower extremities bilaterally, right hip area covered with dressing soaked with serosanguineous discharge INTEGUMENT: no generalized palor NEUROLOGICAL: cranial nerve function from 2-12 intact intact, follows commands, speech not dysarthric LABORATORY DATA: Please see below. IMAGING:INDICATION: drainage Status post arthroplasty. COMPARISON: 02/26/2020 TECHNIQUE: AP and frog-lateral views. FINDINGS: The patient is status post right hip replacement with normal positioning and appearance to the femoral and acetabular components. Overlying postsurgical changes appreciated. IMPRESSION: Satisfactory hip replacement radiographs. PROGNOSIS: Fair ACTIVITY: [As tolerated]. DIET: Regular DISCHARGE PLAN: Transfer to inpatient unit DISCHARGE CONDITION: [Stable]. TIME SPENT ON DISCHARGE: Greater than 20 minutes. Vital Signs/I&Os Vital Signs Date Time Temp Pulse Resp B/P (MAP) Pulse Ox O2 Delivery O2 Flow Rate FiO2 03/21/20 14:24 18 100 Room Air 03/21/20 13:50 79 97/52 (67) 03/21/20 13:30 97.2 03/21/20 11:55 10 I&O- Last 24 Hours up to 6 AM 03/21/20 06:00 Intake Total 980 ml Output Total 150 ml Balance 830 ml Laboratory Data Labs 24H Laboratory Tests 2 03/20/20 16:45: Bedside Glucose (Misc Panel) 224H 03/20/20 19:54: Bedside Glucose (Misc Panel) 191H 03/21/20 05:25: Bedside Glucose (Misc Panel) 117H FSBS Laboratory Tests Test 03/20/20 16:45 03/20/20 19:54 03/21/20 05:25 Range/Units Bedside Glucose (Misc Panel) 224 191 117 83-110 MG/DL Microbiology Microbiology 03/21/20 Gram Stain - Final, Resulted 03/21/20 Wound Culture, Resulted Pending 03/21/20 Anaerobic Culture, Resulted Pending 03/21/20 Gram Stain - Final, Resulted 03/21/20 Wound Culture, Resulted Pending 03/21/20 Anaerobic Culture, Resulted Pending 03/20/20 Wound Culture, Received Pending Discharge Medications Scheduled Acetaminophen (Acetaminophen) 500 Mg Tablet, 1,000 MG PO Q8H Aspirin (Children's Aspirin) 81 Mg Tab.chew, 81 MG PO BID To continue for 35 days Aspirin (Ecotrin) 81 Mg Tablet.dr, 81 MG PO BID for pain Insulin Detemir (Levemir) 100 Unit/1 Ml Vial, 10 UNITS SC BID Insulin Human Lispro (Humalog) 100 Unit/1 Ml Vial, 0 UNITS SC AC Insulin Human Lispro (Humalog) 100 Unit/1 Ml Vial, 0 UNITS SC QHS Lactulose (Lactulose) 10 Gm/15 Ml Skylar, 30 ML PO TID, (Reported) Magnesium Hydroxide (Milk of Magnesia) 400 Mg/5 Ml Oral.susp, 30 ML PO DAILY Omeprazole (Omeprazole) 20 Mg Cap, 20 MG PO DAILY, (Reported) Polyethylene Glycol 3350 (Polyethylene Glycol 3350) 17 Gm Powd.pack, 1 PKT PO DAILY Spironolactone (Spironolactone) 25 Mg Tablet, 25 MG PO DAILY, (Reported) Torsemide (Torsemide) 20 Mg Tablet, 20 MG PO DAILY, (Reported) PT WAS ON FUROSEMIDE 20MG DAILY. CHANGED BY [facility] TO TORSEMIDE Scheduled PRN Levalbuterol Hydrochloride (Xopenex Concentrate) 1.25 Mg/0.5 Ml Vial.neb, 0.63 MG INH Q2HP PRN for SOB/WHEEZING Tramadol HCl (Tramadol HCl) 50 Mg Tablet, 50 MG PO Q4HP PRN for MODERATE PAIN (PS 5-7) Allergies Coded Allergies: No Known Drug Allergies (Verified Allergy, Unknown, 02/25/20) meperidine (Verified Adverse Reaction, Mild, N/V, 02/25/20) CHRISTA LUU DO Mar 21, 2020 15:07
[2020-03-21 15:15] VITALS: BP 92/54
== END 2020-03-21 13:15 | disposition short-term general hospital (02) | DRG 560 ==
LOC: M PM&R 15:45
PROVIDERS: ADMIT Physical Medicine & Rehabilitation; ATTEND Physical Medicine & Rehabilitation
DX: S72.001D Fracture of unspecified part of neck of right femur, subsequent encounter for closed fracture with routine healing (principal); E87.1 Hypo-osmolality and hyponatremia; I13.0 Hypertensive heart and chronic kidney disease with heart failure and stage 1 through stage 4 chronic kidney disease, or unspecified chronic kidney disease; Z96.641 Presence of right artificial hip joint; R26.89 Other abnormalities of gait and mobility; K21.9 Gastro-esophageal reflux disease without esophagitis; I35.0 Nonrheumatic aortic (valve) stenosis; E11.9 Type 2 diabetes mellitus without complications; K74.60 Unspecified cirrhosis of liver; Z66 Do not resuscitate; K72.90 Hepatic failure, unspecified without coma; Z95.0 Presence of cardiac pacemaker; R01.1 Cardiac murmur, unspecified; J45.909 Unspecified asthma, uncomplicated; Z90.49 Acquired absence of other specified parts of digestive tract; Z79.82 Long term (current) use of aspirin; Z79.4 Long term (current) use of insulin; Z79.899 Other long term (current) drug therapy; Z88.8 Allergy status to other drugs, medicaments and biological substances; E86.1 Hypovolemia; I50.9 Heart failure, unspecified; E87.6 Hypokalemia; K59.00 Constipation, unspecified; D63.1 Anemia in chronic kidney disease; N18.30 Chronic kidney disease, stage 3 unspecified

== ENCOUNTER 2020-03-21 08:37 | Inpatient (IN) | payer MEDICARE ==
[~2020-03-21] VITALS: Ht 152.4 cm; Wt 67.4 kg
[~2020-03-21 08:37] MED LIST changes: +ACET-683 PO; +ASPI81CH8 PO; +ECOT81TA5 PO; +INSUDET SC; +INSUHUMDS SC; +LEVA12INH INH; +MOM30SS2 PO; +PEG1POW PO; +TRAM50TA2 PO
[2020-03-21] MEDS ORDERED: ceFAZolin 2 GM/D5W 50 ML IV BAG (J0690 PER 500MG) As Ordered ONE (08:59)
[2020-03-21] MEDS ORDERED: TOBRAMYCIN SULF 1.2 GM VIAL ONE ×2 (09:00)
[2020-03-21] MEDS ORDERED: VANCOMYCIN 1000MG/20ML VIAL ONE ×2 (09:00)
[2020-03-21] MEDS ORDERED: ceFAZolin 2 GM/D5W 50 ML IV BAG (J0690 PER 500MG) ONE (09:00)
[2020-03-21] MEDS ORDERED: TOBRAMYCIN SULF 1.2 GM VIAL As Ordered ONE ×2 (09:36→10:50)
[2020-03-21] MEDS ORDERED: VANCOMYCIN 1000MG/20ML VIAL As Ordered ONE ×2 (09:36→10:50)
[2020-03-21] MEDS ORDERED: KETAMINE HCL 200 MG/20 ML VIAL As Ordered ONE (10:11)
[2020-03-21] MEDS ORDERED: propofoL 200 MG/20 ML VIAL As Ordered ONE (10:11)
[2020-03-21] MEDS ORDERED: PHENYLephrine HCL 500 MCG/5 ML (100MCG/ML) SYRINGE (J2370) As Ordered ONE ×2 (10:11→10:36)
[2020-03-21] MEDS ORDERED: ONDANSETRON 4MG/2ML VIAL As Ordered ONE (10:11)
[2020-03-21] MEDS ORDERED: PHENYLEPHRINE 10MG/ML 1ML VIAL (J2370 PER 1) As Ordered ONE ×2 (10:36→14:11)
--- NOTE | 2020-03-21 12:34 | RO ---
OPERATIVE NOTE DATE OF OPERATION: 03/21/2020 PREOPERATIVE DIAGNOSIS: Infected prosthesis right hip. POSTOPERATIVE DIAGNOSIS: Infected prosthesis right hip. PROCEDURES: 1. Irrigation and debridement of right hip. 2. Exchange arthroplasty of the right hemiarthroplasty femoral head and sleeve. 3. Removal of cerclage cable. 4. Insertion of antibiotic beads. SURGEON: Ailyn Pate MD ANESTHESIA: Spinal. ESTIMATED BLOOD LOSS: 200 mL. SPECIMENS: Superficial and deep aerobic and anaerobic cultures. COMPLICATIONS: None. FINDINGS: She had a superficial seroma that actually did trace down into the hip joint. PROCEDURE: She was already on antibiotics to start and spinal anesthetic was induced in the operating room. She was turned to lateral decubitus position, beanbag was utilized. The right hip area was carefully prepped with sterile Betadine in the usual fashion and it was draped out. After appropriate time out the previous open incision was extended distally and proximally to the extent of the previous surgical incision. Cultures of aerobic and anaerobic swabs were taken superficially and then probed down and you could clearly see that there was a small rent in the deep fascia that did communicate with the prosthesis so I felt best to proceed with exchange arthroplasty. The tensor fascia division was completed and the gluteus medius split was completed proximally and distally off the femur and then I was able to reach in and dislocate the hip anteriorly. The ball was removed and then copious amount of pulsatile lavage irrigant solution was instilled superficial and deep within the depths of the wound. Any remaining sutures were removed sharply and with rongeur. Any necrotic tissue was removed with rongeur and thorough irrigation was performed. In total we used 6 liters of antibiotic irrigant solution with pulse lavage. Once everything was thoroughly cleaned deep and superficially I then dried the trunnion off and placed a new -3 neck sleeve and a new 44 mm head. It was impacted back onto the trunnion. I did remove the cerclage cable at this point after identifying and snipped it and removed it with a pair of pliers. The hip was then reduced and as I was doing this debridement and irrigation on the back table we mixed two batches of the antibiotic beads using Vancomycin and Tobramycin and they were placed in both the depth of the arthrotomy around the prosthesis and into the joint as well as superficial tissues. I then placed a drain deep in the hip joint and then another drain superficial to the tensor fascia and then closed the gluteus medius back anatomically to the normal position with interrupted #1 PDS sutures and then the tensor fascia was closed with combination of #1 PDS sutures and running #1 Stratafix. The leftover antibiotic powder was placed within the depths of the superficial wound. Deep subdermal tissues were closed with interrupted 2-0 PDS sutures. It is noteworthy that I also did irrigate with dilute Betadine solution in the depths of the wound and onto the prosthesis itself to help thoroughly cleanse this area of any residual bacteria that may be present. The skin was closed with zach covered by Adaptic and dry, sterile bulky dressing. She was turned supine and transferred to recovery room in stable condition. There were no intraoperative complications. cc: [facility]
[2020-03-21] MEDS ORDERED: fentaNYL 100 MCG/2 ML INJECTION (J3010) IV PRN (13:30)
[2020-03-21] MEDS ORDERED: LR 1,000 ML IV SCH ×2 (13:30)
[2020-03-21] MEDS ORDERED: ONDANSETRON 4MG/2ML VIAL IV PRN ×2 (13:30)
[2020-03-21] MEDS ORDERED: PHENYLEPHRINE HCL INJ 10 MG in D5W 99 ML IV SCH (13:30)
[2020-03-21] MEDS ORDERED: MORPHINE 2 MG/ML 1ML VIAL (J2270) IV PRN (13:30)
[2020-03-21] MEDS ORDERED: oxyCODONE 5MG TAB PO PRN (13:30)
[2020-03-21] MEDS ORDERED: MORPHINE 4 MG/ML 1ML VIAL/SYRINGE (J2270) IV PRN (13:30)
[2020-03-21] MEDS ORDERED: PERCOCET 5MG/325MG TAB PO PRN ×2 (13:30)
[2020-03-21] MEDS ORDERED: VANCOMYCIN HCL 1,000 MG, VIAL MATE ADAPTER 1 EACH in D5W 250 ML IV SCH (13:45)
[2020-03-21] MEDS ORDERED: VANCOMYCIN HCL 750 MG, VIAL MATE ADAPTER 1 EACH in D5W 250 ML IV SCH (13:45)
--- NOTE | 2020-03-21 14:12 | HPEPDOC ---
[facility] Medical History & Physical Date of Admission Mar 21, 2020 Date of Service: Mar 21, 2020 History and Physical CHIEF COMPLAINT: Infected prosthesis of the right hip HISTORY OF PRESENT ILLNESS: 84-year-old female with past medical history significant for liver cirrhosis, type 2 diabetes, chronic diastolic heart failure, 2018 Right thoracentesis for a pleural effusion with subsequent right lung entrapment bradycardia requiring pacemaker, hypertension, chronic underexpansion of the right lung, status post thoracentesis in 2018. Cardio dextrorotation, asthma and dyslipidemia who had a mechanical fall at home on 11/13/2019 and underwent rehabilitation at [facility] and discharged on 02/24/2020. Patient had another fall reported severe pain on the right side and was sent to [facility] and subsequently transferred to [facility] on February 24 when she was admitted to the medical service and evaluated by orthopedic surgery. At that time patient was found to have a right-sided pleural effusion from liver cirrhosis, which did not require intervention since she was saturating 95% on room air and was not tachypnea, but was evaluated by car wash attendant, Dr. Guerrero and had a hemiarthroplasty of the right hip cemented on 02/26/2020 by orthopedic surgery and discharged on aspirin 81 mg twice a day for 35 days for DVT prophylaxis to the acute rehabilitation unit at [facility]. While at the acute rehabilitation unit. Patient had fluid overload with acute diastolic heart failure exacerbation with hypervolemic hyponatremia managed by gas turbine assembler Dr. Miranda Castelan and Dr. Rose. Despite pain medications to continue to complain of pain and underwent spinal anesthesia for incision and drainage of an infected prosthesis of the right hip, status post vancomycin beads in the operating room with Dr. Live on 03/21/2020, complicated by postop hypotension requiring vasopressor. Hospitalist was asked to admit the patient, postoperatively for an Infected prosthesis of the right hip. She complains of painful right at 10 on a pain scale of the right hip. She denies any chest pain, pressure, tightness, lightheadedness, dizziness, shortness of breath, fever, chills, cough, nausea, vomiting, diarrhea, abdominal pain, bright red blood per rectum, melena, black tarry stools, dysuria, urgency, frequency, changes in appetite, vision, ear ache, diplopia, ear discharge, sore throat, bilateral upper or lower extremity paresthesias. 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 Cardio dextrorotation, dyslipidemia,seroma right hip PAST SURGICAL HISTORY: Hysterectomy, appendectomy, cholecystectomy, tonsillectomy Status post right hip fracture with cemented hemiarthroplasty pacemaker thoracentesis 2018 due to right pleural effusion 03/21/20 infected right hip prosthesis-Irrigation and debridement of right hip, Exchange arthroplasty of the right hemiarthroplasty femoral head and sleeve, Removal of cerclage cable, Insertion of antibiotic beads. HOME MEDICATIONS: SEE BELOW SOCIAL HISTORY: Nonsmoker. Denies alcohol abuse was previously in rehabilitation in [facility] FAMILY HISTORY: Noncontributory due to age ALLERGIES: Please see below. REVIEW OF SYSTEMS: 12 point system negative aside from positive findings in HPI HOME MEDICATIONS: Please see below. PHYSICAL EXAMINATION: VITAL SIGNS: See below GENERAL APPEARANCE: Hard of hearing, appears her stated age, frail appearing Awake, alert, oriented to person and place. Answers questions appropriately Speech is fluent. No respiratory distress or use of respiratory accessory muscles HEENT: No cervical lymphadenopathy. Dry mucous membranes. No carotid bruit CARDIOVASCULAR: S1, S2. Systolic ejection murmur at the apex radiating to the carotids. Regular rate and rhythm LUNGS: Diminished breath sounds at the right base. Left lung is clear ABDOMEN: Soft, nontender, nondistended, positive bowel sounds 4 quadrants. Well-healed surgical scars EXTREMITIES: Postop right hip. 1+ pitting edema bilaterally. Ecchymotic areas bilateral lower extremities LABORATORY DATA: See below. IMAGING: See below MICROBIOLOGY: Please see below. 03/21/20 PREOPERATIVE DIAGNOSIS: Infected prosthesis right hip. POSTOPERATIVE DIAGNOSIS: Infected prosthesis right hip. PROCEDURES: 1. Irrigation and debridement of right hip. 2. Exchange arthroplasty of the right hemiarthroplasty femoral head and sleeve. 3. Removal of cerclage cable. 4. Insertion of antibiotic beads. SURGEON: Ailyn Pate MD ASSESSMENT: 84-year-old female with past medical history significant for liver cirrhosis, type 2 diabetes, chronic diastolic heart failure, 2018 Right thoracentesis for a pleural effusion with subsequent right lung entrapment bradycardia requiring pacemaker, hypertension, chronic underexpansion of the right lung, status post thoracentesis in 2018. Cardio dextrorotation, asthma and dyslipidemia who had a mechanical fall at home on 11/13/2019 and underwent rehabilitation at [facility] and discharged on 02/24/2020. Patient had another fall reported severe pain on the right side and was sent to [facility] and subsequently transferred to [facility] on February 24 when she was admitted to the medical service and evaluated by orthopedic surgery. At that time patient was found to have a right-sided pleural effusion from liver cirrhosis, which did not require intervention since she was saturating 95% on room air and was not tachypnea, but was evaluated by car wash attendant, Dr. Guerrero and had a hemiarthroplasty of the right hip cemented on 02/26/2020 by orthopedic surgery and discharged on aspirin 81 mg twice a day for 35 days for DVT prophylaxis to the acute rehabilitation unit at [facility]. While at the acute rehabilitation unit. Patient had fluid overload with acute diastolic heart failure exacerbation with hypervolemic hyponatremia managed by gas turbine assembler Dr. Miranda Castelan and Dr. Rose. Despite pain medications to continue to complain of pain and underwent spinal anesthesia for incision and drainage of an infected prosthesis of the right hip, status post vancomycin beads in the operating room with Dr. Live on 02/25, complicated by postop hypotension requiring vasopressor. Hospitalist was asked to admit the patient, postoperatively for an Infected prosthesis of the right hip. She complains of painful right at 10 on a pain scale of the right hip. She denies any chest pain, pressure, tightness, lightheadedness, dizziness, shortness of breath, fever, chills, cough, nausea, vomiting, diarrhea, abdominal pain, bright red blood per rectum, melena, black tarry stools, dysuria, urgency, frequency, changes in appetite, vision, ear ache, diplopia, ear discharge, sore throat, bilateral upper or lower extremity paresthesias. Infected prosthesis of the right hip -Orthopedic surgery Dr. Julius Pate consulted. -03/21/20 Status post incision and drainage, Irrigation and debridement of right hip, Exchange arthroplasty of the right hemiarthroplasty femoral head and sleeve, Removal of cerclage cable, Insertion of antibiotic beads. -Infectious disease consult on 03/23/2020, Dr. Patito Peralta -Monitor for fevers. Daily CBC with differential -Obtain baseline CRP, sedimentation rate, and pro-calcitonin -Intravenous vancomycin to be managed by pharmacy with peak and trough monitoring and adjustment renally Medication-induced postoperative hypotension -Patient developed hypotension with mean arterial pressure of 50 systolic pressure is 66 mmHg in the recovery room requiring phenylephrine -Secondary to fentanyl given for pain, and anesthesia -Due to decompensated diastolic congestive heart failure, and hypervolemic hyponatremia, we are avoiding intravenous fluids. -Transfuse with 25% albumin and if significant anemia, may transfuse red blood cells -midodrine 10 mg tid , Trial to keep mean ultralow pressure greater than 60 Decompensated diastolic congestive heart failure exacerbation with preserved systolic function -Holding off on any diuretics due to low blood pressure -She still remains fluid overloaded. -Nephrology has been consulted to manage patient's fluid balance and to keep her net negative balance Once the blood pressure has stabilized Chronic right pleural effusion with underexpansion of the right lung -Did not require any thoracentesis or chest tube placement since she was not hypoxic -If patient requires more oxygen with oxygen saturation less than 88% on room air, we will need to recheck Chest x-ray to rule out worsening edema Hyponatremia secondary to congestive heart failure -Stable without significant fluctuations. -Sodium level with no signs of confusion, headache or seizure activity -Fluid balance is managed by nephrology Decompensated liver cirrhosis with pleural effusions and lower extremity edema -Due to hypotension, patient will be transfused albumin. -Fluid balance is managed by nephrology -Telemetry -Strict I's and O's -Weigh daily pulmonary hypertension -Complicating her care coronary artery disease -No acute ischemic symptoms and denies chest pain, pressure, tightness or shortness of breath asthma -Compensated type 2 insulin-dependent diabetes -On insulin sliding scale per [facility] protocol with coverage -Fingersticks every before meals at bedtime -Consistent carbohydrate diet -Hypoglycemic protocol bradycardia requiring pacemaker placement -Telemetry mechanical fall with right hip fracture s/p 02/26/20 cemented hemiarthroplasty -Infected right hip prosthesis, status post incision and drainage and antibiotic bead insertion -PT, OT consulted -AR U evaluation gastroesophageal reflux disease -Chronic History of hepatic encephalopathy -On chronic lactulose DVT prophylaxis: Per orthopedic surgery Home Medications Scheduled Acetaminophen (Acetaminophen) 500 Mg Tablet, 1,000 MG PO Q8H Aspirin (Children's Aspirin) 81 Mg Tab.chew, 81 MG PO BID To continue for 35 days Aspirin (Ecotrin) 81 Mg Tablet.dr, 81 MG PO BID for pain Insulin Detemir (Levemir) 100 Unit/1 Ml Vial, 10 UNITS SC BID Insulin Human Lispro (Humalog) 100 Unit/1 Ml Vial, 0 UNITS SC AC Insulin Human Lispro (Humalog) 100 Unit/1 Ml Vial, 0 UNITS SC QHS Lactulose (Lactulose) 10 Gm/15 Ml Skylar, 30 ML PO TID Magnesium Hydroxide (Milk of Magnesia) 400 Mg/5 Ml Oral.susp, 30 ML PO DAILY Omeprazole (Omeprazole) 20 Mg Cap, 20 MG PO DAILY Polyethylene Glycol 3350 (Polyethylene Glycol 3350) 17 Gm Powd.pack, 1 PKT PO DAILY Spironolactone (Spironolactone) 25 Mg Tablet, 25 MG PO DAILY Torsemide (Torsemide) 20 Mg Tablet, 20 MG PO DAILY PT WAS ON FUROSEMIDE 20MG DAILY. CHANGED BY GIULIANO SANFORD TO TORSEMIDE Scheduled PRN Levalbuterol Hydrochloride (Xopenex Concentrate) 1.25 Mg/0.5 Ml Vial.neb, 0.63 MG INH Q2HP PRN for SOB/WHEEZING Tramadol HCl (Tramadol HCl) 50 Mg Tablet, 50 MG PO Q4HP PRN for MODERATE PAIN (PS 5-7) Allergies Coded Allergies: No Known Drug Allergies (Verified Allergy, Unknown, 02/25/20) meperidine (Verified Adverse Reaction, Mild, N/V, 02/25/20) A-FIB/CHADSVASC A-FIB History Current/History of A-Fib/PAF?: No Current PO Anticoag Therapy: No Age/Risk Factor Scoring CHADSVASC: CHADSVASC Response (Comments) Value Age Risk Factor Age >/= 75 years old 2 Gender Risk Factor Female 1 Hx of CHF Yes 1 Hx of HTN Yes 1 Hx of Stroke/TIA/or VTE No 0 Hx of Diabetes Yes 1 Hx of Vascular Disease No 0 Total 6 Treatment Treatment ordered: NONE Reason Anticoagulant not given: Current bleeding LUCI OWENS MD Mar 21, 2020 14:10
[2020-03-21] MEDS ORDERED: oxyCODONE 5MG TAB As Ordered ONE (14:23)
[2020-03-21] MEDS ORDERED: ceFAZolin SOD 2 GM in IV 1 EA IV SCH (15:00)
[2020-03-21 15:30] VITALS: BP 110/58
[2020-03-21] MEDS: ACETAMINOPHEN TAB 650MG DOSE (2X325MG) PO PRN (15:57)
[2020-03-21] MEDS: MIDODRINE 5 MG TAB PO SCH (15:58)
[2020-03-21 16:00] VITALS: BP 97/55
[2020-03-21 16:16] LABS: BASO % 0.3 % (0.0-1.0); EOS % 0.1 % (0.0-3.0); HEMATOCRIT 31.2 % (36.0-47.0); HEMOGLOBIN 9.8 g/dl (12.0-15.5); LYMPH # 0.4 10^3/uL (1.5-5.0); LYMPH % 3.7 % (24.0-44.0); MEAN CORPUSCULAR HEMOGLOBIN 32.5 pg (27.0-33.0); MEAN CORPUSCULAR HGB CONC 31.4 g/dl (32.0-36.5); MEAN CORPUSCULAR VOLUME 103.3 fl (80.0-96.0); MONO # 1.4 10^3/uL (0.0-0.8); NEUTROPHILS % 82.9 % (36.0-66.0); PLATELET COUNT, AUTOMATED 242 10^3/uL (150-450); RED BLOOD COUNT 3.02 10^6/uL (4.00-5.40); WHITE BLOOD COUNT 12.1 10^3/uL (4.0-10.0)
[2020-03-21 16:37] LABS: ERYTHROCYTE SEDIMENTATION RATE 61 mm/hr (0-30)
[2020-03-21 16:39] LABS: ALBUMIN 1.8 GM/DL (3.2-5.2); BILIRUBIN,DIRECT 1.9 MG/DL (0.0-0.2); BILIRUBIN,TOTAL 3.7 MG/DL (0.2-1.0); C REACTIVE PROTEIN QUANTITATIV 8.19 MG/DL (0.00-0.30); CK-MB VALUE MASS 2.7 NG/ML (<3.6); CREATININE FOR GFR 1.47 MG/DL (0.55-1.30); GLOMERULAR FILTRATION RATE 36.1 (>32); MB/CK RELATIVE INDEX 6.43 (< OR =4); TOTAL PROTEIN 6.3 GM/DL (6.4-8.2); TROPONIN I 0.05 NG/ML (< 0.10)
[2020-03-21] MEDS: VANCOMYCIN HCL 1,000 MG, VIAL MATE ADAPTER 1 EACH in D5W 250 ML IV SCH (17:00)
[2020-03-21] MEDS: HumaLOG INSULIN (NovoLOG) PER UNIT SC SCH ×2 (17:01→20:59)
[2020-03-21 18:00] VITALS: BP 92/54
[2020-03-21 18:18] VITALS: BP 108/55
[2020-03-21 18:53] VITALS: BP 109/61
[2020-03-21 20:00] VITALS: BP 101/63
[2020-03-21] MEDS: LEVEMIR (INSULIN DETEMIR) 1 UNITS/0.01ML SC SCH (20:58)
[2020-03-21] MEDS: ASPIRIN 81 MG ENTERIC TAB PO SCH (20:59)
[2020-03-21] MEDS: LACTULOSE 20 GM/30 ML SYRUP UD PO SCH (20:59)
[2020-03-22] VITALS: BP 120/75
[2020-03-22 04:00] VITALS: BP 138/62
[2020-03-22 06:14] LABS: BASO % 0.4 % (0.0-1.0); HEMATOCRIT 26.4 % (36.0-47.0); HEMOGLOBIN 8.3 g/dl (12.0-15.5); LYMPH # 0.6 10^3/uL (1.5-5.0); MEAN CORPUSCULAR HEMOGLOBIN 32.5 pg (27.0-33.0); MEAN CORPUSCULAR HGB CONC 31.4 g/dl (32.0-36.5); MEAN CORPUSCULAR VOLUME 103.5 fl (80.0-96.0); MONO % 11.3 % (0.0-5.0); NEUTROPHILS # 6.8 10^3/uL (1.5-8.5); NEUTROPHILS % 80.7 % (36.0-66.0); PLATELET COUNT, AUTOMATED 221 10^3/uL (150-450); RED BLOOD COUNT 2.55 10^6/uL (4.00-5.40); WHITE BLOOD COUNT 8.4 10^3/uL (4.0-10.0)
[2020-03-22 06:34] LABS: C REACTIVE PROTEIN QUANTITATIV 8.26 MG/DL (0.00-0.30); CREATININE FOR GFR 1.47 MG/DL (0.55-1.30); GLOMERULAR FILTRATION RATE 36.1 (>32); POTASSIUM SERUM 3.9 MEQ/L (3.5-5.1)
[2020-03-22 06:48] LABS: ERYTHROCYTE SEDIMENTATION RATE 63 mm/hr (0-30)
[2020-03-22] MEDS ORDERED: VANCOMYCIN HCL 1,000 MG, VIAL MATE ADAPTER 1 EACH in D5W 250 ML IV SCH (07:45)
[2020-03-22] MEDS ORDERED: ONDANSETRON 4MG/2ML VIAL IV PRN (07:45)
[2020-03-22] MEDS ORDERED: oxyCODONE 5MG TAB PO PRN (07:45)
[2020-03-22 08:00] VITALS: BP 102/51
--- NOTE | 2020-03-22 09:07 | IPNPDOC ---
Date Seen The patient was seen on 03/22/20. Progress Note S: admitted to pcu due to postop hypotension systolic blood pressure 66mmhg w/o fever, chest pain, or dizziness, s/p iv albumin infusion 25% and trial of midodrine 3 times a day to avoid using vasopressors iv. no issues overnight 3/10 discomfort in hip and does not want pain meds this am. sbp 120-130mmHg overnight into this morning. c/o neck pruritus but no rash. PHYSICAL EXAMINATION: VITAL SIGNS: See below GENERAL APPEARANCE: Hard of hearing, appears her stated age, frail appearing Awake, alert, oriented to person and place. Answers questions appropriately Speech is fluent. No respiratory distress or use of respiratory accessory muscles HEENT: No cervical lymphadenopathy. Dry mucous membranes. No carotid bruit CARDIOVASCULAR: S1, S2. Systolic ejection murmur at the apex radiating to the carotids. Regular rate and rhythm LUNGS: Diminished breath sounds at the right base. Left lung is clear ABDOMEN: Soft, nontender, nondistended, positive bowel sounds 4 quadrants. Well-healed surgical scars EXTREMITIES: Postop right hip. 1+ pitting edema bilaterally. Ecchymotic areas bi lateral lower extremities SKIN: dry skinand some erythema on the neck from scratching LABORATORY DATA: See below. IMAGING: See below MICROBIOLOGY: Please see below. 03/21/20 PREOPERATIVE DIAGNOSIS: Infected prosthesis right hip. POSTOPERATIVE DIAGNOSIS: Infected prosthesis right hip. PROCEDURES: 1. Irrigation and debridement of right hip. 2. Exchange arthroplasty of the right hemiarthroplasty femoral head and sleeve. 3. Removal of cerclage cable. 4. Insertion of antibiotic beads. SURGEON: Ailyn Pate MD ASSESSMENT: 84-year-old female with past medical history significant for liver cirrhosis, type 2 diabetes, chronic diastolic heart failure, 2018 Right thoracentesis for a pleural effusion with subsequent right lung entrapment bradycardia requiring pacemaker, hypertension, chronic underexpansion of the right lung, status post thoracentesis in 2018. Cardio dextrorotation, asthma and dyslipidemia who had a mechanical fall at home on 11/13/2019 and underwent rehabilitation at [facility] and discharged on 02/24/2020. Patient had another fall reported severe pain on the right side and was sent to [facility] and subsequently transferred to [facility] on February 24 when she was admitted to the medical service and evaluated by orthopedic surgery. At that time patient was found to have a right-sided pleural effusion from liver cirrhosis, which did not require intervention since she was saturating 95% on room air and was not tachypnea, but was evaluated by [employer], Dr. Guerrero and had a hemiarthroplasty of the right hip cemented on 02/26/2020 by orthopedic surgery and discharged on aspirin 81 mg twice a day for 35 days for DVT prophylaxis to the acute rehabilitation unit at [facility]. While at the acute rehabilitation unit. Patient had fluid overload with acute diastolic heart failure exacerbation with hypervolemic hyponatremia managed by terrazzo polisher Dr. Miranda Castelan and Dr. Rose. Despite pain medications to continue to complain of pain and underwent spinal anesthesia for incision and drainage of an infected prosthesis of the right hip, status post vancomycin beads in the operating room with Dr. Live on 03/21/2020, complicated by postop hypotension requiring vasopressor. Hospitalist was asked to admit the patient, postoperatively for an Infected prosthesis of the right hip. She complains of painful right at 10 on a pain scale of the right hip. She denies any chest pain, pressure, tightness, lightheadedness, dizziness, shortness of breath, fever, chills, cough, nausea, vomiting, diarrhea, abdominal pain, bright red blood per rectum, melena, black tarry stools, dysuria, urgency, frequency, changes in appetite, vision, ear ache, diplopia, ear discharge, sore throat, bilateral upper or lower extremity paresthesias. Infected prosthesis of the right hip -Orthopedic surgery Dr. Julius Pate consulted. -03/21/20 Status post incision and drainage, Irrigation and debridement of right hip, Exchange arthroplasty of the right hemiarthroplasty femoral head and sleeve, Removal of cerclage cable, Insertion of antibiotic beads. -Infectious disease consult on 03/23/2020, Dr. Patito Peralta -Monitor for fevers. Daily CBC with differential -Obtained baseline CRP, sedimentation rate, and pro-calcitonin -Intravenous vancomycin to be managed by pharmacy with peak and trough monitoring and adjustment renally -Patient was hypotensive yesterday on IV vancomycin, currently day #2 Medication-induced postoperative hypotension -Patient developed hypotension with mean arterial pressure of 50 systolic pressure is 66 mmHg in the recovery room . On 03/21/2020 requiring phenylephrine -Secondary to fentanyl given for pain, and anesthesia -Due to decompensated diastolic congestive heart failure, and hypervolemic hyponatremia, we are avoiding intravenous fluids. -Transfused with 25% albumin . On 03/21/2020 -midodrine 10 mg tid , Trial to keep mean arterial pressure greater than 60 -Patient had 2 mL of blood loss in the operating room and had 80 animals in recovery through the drain . -if significant anemia, may transfuse red blood cells Decompensated diastolic congestive heart failure exacerbation with preserved s ystolic function -Held off on any diuretics due to low blood pressure on 03/21/2020 -Nephrology has been consulted to manage patient's fluid balance and to keep her net negative balance -On strict I's and O's, daily weights Chronic right pleural effusion with underexpansion of the right lung -Did not require any thoracentesis or chest tube placement since she was not hypoxic -If patient requires more oxygen with oxygen saturation less than 88% on room air, we will need to recheck Chest x-ray to rule out worsening edema , especially due to recent transfusion with 25% albumin Hyponatremia secondary to congestive heart failure -Stable without significant fluctuations. -Sodium level with no signs of confusion, headache or seizure activity -Fluid balance is managed by nephrology Decompensated liver cirrhosis with pleural effusions and lower extremity edema -Due to hypotension, patient was transfused 25% albumin On 03/21/2020 -Fluid balance is managed by nephrology -Telemetry -Strict I's and O's -Weigh daily pulmonary hypertension -Complicating her care coronary artery disease -No acute ischemic symptoms and denies chest pain, pressure, tightness or shortness of breath asthma -Compensated type 2 insulin-dependent diabetes -On insulin sliding scale per [facility] protocol with coverage -Fingersticks every before meals at bedtime -Consistent carbohydrate diet -Hypoglycemic protocol bradycardia requiring pacemaker placement -Telemetry mechanical fall with right hip fracture s/p 02/26/20 cemented hemiarthroplasty -Infected right hip prosthesis, status post incision and drainage and antibiotic bead insertion -PT, OT consulted -AR U evaluation gastroesophageal reflux disease -Chronic History of hepatic encephalopathy -On chronic lactulose DVT prophylaxis: Per orthopedic surgery Disposition: Patient may be transferred to medical surgical floor. Now that her blood pressure is improved with systolic ranging at 1 20 mmHg VS, I&O, 24H, Fishbone Vital Signs/I&O Vital Signs Date Time Temp Pulse Resp B/P (MAP) Pulse Ox O2 Delivery O2 Flow Rate FiO2 03/22/20 04:00 97.9 85 18 138/62 (87) 96 Room Air l I&O- Last 24 Hours up to 6 AM 03/22/20 06:00 Intake Total 1300.0 ml Output Total 675 ml Balance 625.0 ml Laboratory Data 24H LABS Laboratory Tests 2 03/21/20 15:47: Immature Granulocyte % (Auto) 1.0, Neutrophils (%) (Auto) 82.9H, Lymphocytes (%) (Auto) 3.7L, Monocytes (%) (Auto) 12.0H, Eosinophils (%) (Auto) 0.1, Basophils (%) (Auto) 0.3, Neutrophils # (Auto) 10.0H, Lymphocytes # (Auto) 0.4L, Monocytes # (Auto) 1.4H, Eosinophils # (Auto) 0.0, Basophils # (Auto) 0.0, Nucleated Red Blood Cells % (auto) 0.0, Erythrocyte Sedimentation Rate 61H, Anion Gap 9, Glomerular Filtration Rate 36.1, Calcium Level 9.0, Total Bilirubin 3.7H, Direct Bilirubin 1.9H, Aspartate Amino Transf (AST/SGOT) 38H, Alanine Aminotransferase (ALT/SGPT) 8L, Alkaline Phosphatase 417H, Total Creatine Kinase 42, Creatine Kinase MB 2.7, Creatine Kinase MB Relative Index 6.43H, Troponin I 0.05, C- Reactive Protein, Quantitative 8.19H, Total Protein 6.3L, Albumin 1.8L, Albumin/Globulin Ratio 0.4L 03/21/20 16:48: Bedside Glucose (Misc Panel) 201H 03/21/20 19:48: Bedside Glucose (Misc Panel) 229H 03/22/20 05:49: Immature Granulocyte % (Auto) 0.6, Neutrophils (%) (Auto) 80.7H, Lymphocytes (%) (Auto) 7.0L, Monocytes (%) (Auto) 11.3H, Eosinophils (%) (Auto) 0.0, Basophils (%) (Auto) 0.4, Neutrophils # (Auto) 6.8, Lymphocytes # (Auto) 0.6L, Monocytes # (Auto) 1.0H, Eosinophils # (Auto) 0.0, Basophils # (Auto) 0.0, Nucleated Red Blood Cells % (auto) 0.0, Erythrocyte Sedimentation Rate 63H, Anion Gap 8, Glomerular Filtration Rate 36.1, Calcium Level 9.0, C-Reactive Protein, Quantitative 8.26H CBC/BMP Laboratory Tests 03/21/20 15:47 03/22/20 05:49 Microbiology Microbiology 03/21/20 Blood Culture, Received Pending 03/21/20 Blood Culture, Received Pending LUCI OWENS MD Mar 22, 2020 07:47
[2020-03-22] MEDS: LACTULOSE 20 GM/30 ML SYRUP UD PO SCH ×3 (09:24→23:07)
[2020-03-22] MEDS: HumaLOG INSULIN (NovoLOG) PER UNIT SC SCH ×4 (09:24→23:08)
[2020-03-22] MEDS: VANCOMYCIN HCL 1,000 MG, VIAL MATE ADAPTER 1 EACH in D5W 250 ML IV SCH (09:24)
[2020-03-22] MEDS: LEVEMIR (INSULIN DETEMIR) 1 UNITS/0.01ML SC SCH ×2 (09:25→23:09)
[2020-03-22] MEDS: ASPIRIN 81 MG ENTERIC TAB PO SCH ×2 (09:25→23:07)
[2020-03-22] MEDS: OMEPRAZOLE 20 MG CAP PO SCH (09:26)
[2020-03-22] MEDS: MIDODRINE 5 MG TAB PO SCH ×3 (09:26→15:42)
[2020-03-22] MEDS: ACETAMINOPHEN TAB 650MG DOSE (2X325MG) PO PRN (09:27)
[2020-03-22 14:00] VITALS: BP 130/67
--- NOTE | 2020-03-22 14:18 | REP ---
INDICATION: Large right pleural effusion COMPARISON: Chest x-ray dated 03/20/2020. Chest CT dated 11/10/2017. TECHNIQUE: Axial noncontrast images from the thoracic inlet to the upper abdomen with coronal and sagittal reformations. This CT examination was performed using the following dose reduction techniques: Automated exposure control, adjustment of mA and/or kv according to the patient's size, and use of iterative reconstruction technique. FINDINGS: There is evidence for a moderate partially loculated right pleural effusion along with partial collapse to the right lung with associated volume loss and ipsilateral mediastinal shift. Underlying right-sided pulmonary mass lesion cannot be excluded. The left hemithorax is well aerated and clear. Evaluation of the mediastinum demonstrates atherosclerotic changes to the thoracic aorta and coronary arteries without aortic aneurysm. No cardiomegaly or PE pericardial effusion. Pacemaker noted. Thyroid gland is grossly unremarkable. Surrounding musculoskeletal structures are intact and without acute osseous abnormality. Upper abdomen demonstrates cirrhosis along with moderate ascites. Subtle suspicious low-density hepatic lesions are suspected and warrant further investigation. Bilateral adrenal glands are normal. Evidence for associated portal hypertension with splenomegaly, patent umbilical vein and scattered varices. IMPRESSION: 1. Moderate partially loculated right pleural effusion with suspected partial collapse to the right lung, associated volume loss and ipsilateral mediastinal shift. 2. Upper abdominal findings consistent with cirrhosis and suspicious for underlying vague hepatic mass lesions. <Electronically signed by Glenn Mohr > 03/22/20 [id number]
--- NOTE | 2020-03-22 16:23 | IPN ---
PROGRESS NOTE DATE: 03/22/2020 SUBJECTIVE: The patient was being followed in rehab floor by nephrology for her congestive heart failure and hyponatremia. Yesterday, he was taken to OR due to development of seroma at the right hip surgical site and was felt to have infected prosthesis. She underwent exchange arthroplasty and debridement of her wound. She was hypertensive postoperatively and was transferred to progressive care unit. She was given IV albumin and midodrine due to low blood pressure. I could not see her yesterday as she was in the OR for long time. This morning I have seen on her bedside. She is awake and alert and without any acute distress. She still has some pain at the surgical site, however, not requiring any significant pain medication. PHYSICAL EXAMINATION: Temperature 97.1 degrees Fahrenheit, heart rate 83 per minute and respiratory rate 16 per minute. Blood pressure 102/50 mmHg, oxygen saturation 96% on room air. Head is atraumatic. Neck is supple and jugular venous distention (JVD) about 6 cm above the sternal angle. Heart sounds are regular. Lungs have diminished breath sounds on the right, but the left side sounds clear. Abdomen is soft and nontender and bowel sounds are present. Extremities without any cyanosis or clubbing. She has HALLE drains in her right hip surgical wound and dressing is intact. Lower extremity edema is 1+ bilaterally. Neurologically, she is awake, alert and oriented x3. LABORATORY DATA: Today's labs show sodium 125, potassium 3.9, chloride 81, Co2 36, BUN 38 and creatinine 1.47, glucose 204 and calcium 9.0. C-reactive protein is 8.26. WBC count is 8.4, hemoglobin 8.3 and hematocrit 26.4. Platelets 221. PROBLEMS: 1. Acute kidney injury superimposed on chronic kidney disease. Most likely related to hypotension and possible intravascular hypovolemia. There is no change in kidney function from yesterday to day. We will continue to watch her without any further intervention at present. I will not give her more IV fluid due to risk for decompensation in her congestive heart failure. 2. Diastolic congestive heart failure. The patient does have slight volume overload, but not in any respiratory distress. She has a large pleural effusion. She has been hypotensive and not likely to tolerate diuretic very well. I am going to hold off on diuretics for now. 3. Hyponatremia, most likely due to the IV fluids given during surgery yesterday as she received D5W with epinephrine and also received Ringers lactated solution. She has been in pain, which is also probably contributing to her hyponatremia. We will hold off on diuretics for now and see how she does over the next 24 hours. Once she is hemodynamically more stable, then we will consider to diurese her. 4. Anemia. Her anemia has worsened due to surgeries and infected hip. No urgent need for transfusion, but she is likely to require transfusion again. 5. Large right pleural effusion. Her last chest x-ray showed a large right pleural effusion and we will get a CT scan of chest today without any contrast for further evaluation. She is likely to benefit from chest tube placement.
[2020-03-22 23:11] VITALS: BP 105/49
[2020-03-23] MEDS: VANCOMYCIN HCL 1,000 MG, VIAL MATE ADAPTER 1 EACH in D5W 250 ML IV SCH ×2 (04:23→22:07)
[2020-03-23 05:37] VITALS: BP 102/48
[2020-03-23 06:40] LABS: BASO # 0.1 10^3/uL (0.0-0.2); BASO % 0.8 % (0.0-1.0); EOS # 0.1 10^3/uL (0.0-0.5); EOS % 0.8 % (0.0-3.0); HEMATOCRIT 25.1 % (36.0-47.0); HEMOGLOBIN 8.1 g/dl (12.0-15.5); LYMPH # 0.8 10^3/uL (1.5-5.0); LYMPH % 11.8 % (24.0-44.0); MEAN CORPUSCULAR HEMOGLOBIN 32.9 pg (27.0-33.0); MEAN CORPUSCULAR HGB CONC 32.3 g/dl (32.0-36.5); MONO % 16.3 % (0.0-5.0); NEUTROPHILS # 4.5 10^3/uL (1.5-8.5); NEUTROPHILS % 69.8 % (36.0-66.0); PLATELET COUNT, AUTOMATED 200 10^3/uL (150-450); RED BLOOD COUNT 2.46 10^6/uL (4.00-5.40); WHITE BLOOD COUNT 6.4 10^3/uL (4.0-10.0)
[2020-03-23 07:11] LABS: CALCIUM LEVEL 9.8 MG/DL (8.8-10.2); CREATININE FOR GFR 1.23 MG/DL (0.55-1.30); GLOMERULAR FILTRATION RATE 44.3 (>32); POTASSIUM SERUM 3.3 MEQ/L (3.5-5.1)
[2020-03-23] MEDS: MIDODRINE 5 MG TAB PO SCH ×3 (07:38→16:00)
[2020-03-23] MEDS: LACTULOSE 20 GM/30 ML SYRUP UD PO SCH ×3 (07:55→22:08)
[2020-03-23] MEDS: ASPIRIN 81 MG ENTERIC TAB PO SCH ×2 (07:55→22:08)
[2020-03-23] MEDS: OMEPRAZOLE 20 MG CAP PO SCH (07:55)
[2020-03-23] MEDS: HumaLOG INSULIN (NovoLOG) PER UNIT SC SCH ×4 (07:58→22:09)
[2020-03-23] MEDS: LEVEMIR (INSULIN DETEMIR) 1 UNITS/0.01ML SC SCH ×2 (07:59→22:10)
[2020-03-23] MEDS ORDERED: POTASSIUM CHLORIDE 10 MEQ SR TABLET PO ONE ×2 (08:00→14:00)
--- NOTE | 2020-03-23 08:00 | IPNPDOC ---
Date Seen The patient was seen on 03/23/20. Progress Note S: Despite loculated pleural effusion, pt denies sob and has been laying flat in bed without respiratory distress. no c/o fever, chills, diaphoresis, PND, orthopnea. c/o discomfort in postop hip 4/10 when not moving . PHYSICAL EXAMINATION: VITAL SIGNS: See below GENERAL APPEARANCE: slight pallor. no cyanosis. Hard of hearing, appears her stated age, frail appearing Awake, alert, oriented to person and place. Answers questions appropriately Speech is fluent. No respiratory distress or use of respiratory accessory muscles HEENT: No cervical lymphadenopathy. Dry mucous membranes. No carotid bruit CARDIOVASCULAR: S1, S2. Systolic ejection murmur at the apex radiating to the carotids. Regular rate and rhythm LUNGS: Diminished breath sounds and crackles at the right base. Left lung is c lear ABDOMEN: Soft, nontender, nondistended, positive bowel sounds 4 quadrants. Well-healed surgical scars EXTREMITIES: Postop right hip. 1+ pitting edema bilaterally. Ecchymotic areas bilateral lower extremities SKIN: dry skin and some erythema on the neck from scratching LABORATORY DATA: See below. IMAGING: See below MICROBIOLOGY: Please see below. 03/21/20 PREOPERATIVE DIAGNOSIS: Infected prosthesis right hip. POSTOPERATIVE DIAGNOSIS: Infected prosthesis right hip. PROCEDURES: 1. Irrigation and debridement of right hip. 2. Exchange arthroplasty of the right hemiarthroplasty femoral head and sleeve. 3. Removal of cerclage cable. 4. Insertion of antibiotic beads. SURGEON: Ailyn Pate MD ASSESSMENT: 84-year-old female with past medical history significant for liver cirrhosis, type 2 diabetes, chronic diastolic heart failure, 2018 Right thoracentesis for a pleural effusion with subsequent right lung entrapment bradycardia requiring pacemaker, hypertension, chronic underexpansion of the right lung, status post thoracentesis in 2018. Cardio dextrorotation, asthma and dyslipidemia who had a mechanical fall at home on 11/13/2019 and underwent rehabilitation at [facility] and discharged on 02/24/2020. Patient had another fall reported severe pain on the right side and was sent to [facility] and subsequently transferred to [facility] on February 24 when she was admitted to the medical service and evaluated by orthopedic surgery. At that time patient was found to have a right-sided pleural effusion from liver cirrhosis, which did not require intervention since she was saturating 95% on room air and was not tachypnea, but was evaluated by licensed staff mft, Dr. Guerrero and had a hemiarthroplasty of the right hip cemented on 02/26/2020 by orthopedic surgery and discharged on aspirin 81 mg twice a day for 35 days for DVT prophylaxis to the acute rehabilitation unit at [facility]. While at the acute rehabilitation unit. Patient had fluid overload with acute diastolic heart failure exacerbation with hypervolemic hyponatremia managed by bone tender Dr. Miranda Castelan and Dr. Rose. Despite pain medications to continue to complain of pain and underwent spinal anesthesia for incision and drainage of an infected prosthesis of the right hip, status post vancomycin beads in the operating room with Dr. Live on 03/21/2020, complicated by postop hypotension requiring vasopressor. Hospitalist was asked to admit the patient, postoperatively for an Infected prosthesis of the right hip. She complains of painful right at 10 on a pain scale of the right hip. She denies any chest pain, pressure, tightness, lightheadedness, dizziness, shortness of breath, fever, chills, cough, nausea, vomiting, diarrhea, abdominal pain, bright red blood per rectum, melena, black tarry stools, dysuria, urgency, frequency, changes in appetite, vision, ear ache, diplopia, ear discharge, sore throat, bilateral upper or lower extremity paresthesias. Infected prosthesis of the right hip -Orthopedic surgery Dr. Julius Pate consulted. -03/21/20 Status post incision and drainage, Irrigation and debridement of right hip, Exchange arthroplasty of the right hemiarthroplasty femoral head and sleeve, Removal of cerclage cable, Insertion of antibiotic beads. -Infectious disease consult on 03/23/2020, Dr. Patito Peralta to determine if IV vancomycin should be continued. -Monitor for fevers. Daily CBC with differential -monitoring CRP, sedimentation rate, and pro-calcitonin -Intravenous vancomycin managed by pharmacy with peak and trough monitoring and adjustment renally -on IV vancomycin, currently day #3 Medication-induced postoperative hypotension -Patient developed hypotension with mean arterial pressure of 50 systolic pressure is 66 mmHg in the recovery room On 03/21/2020 requiring phenylephrine -Secondary to fentanyl given for pain, and anesthesia -Due to decompensated diastolic congestive heart failure, and hypervolemic hyponatremia, we avoided intravenous fluids. -Transfused with 25% albumin On 03/21/2020 -midodrine 10 mg tid to keep mean arterial pressure greater than 65 -Patient had 200 mL of blood loss in the operating room and had 80 mL in recovery through the drain on 03/21/20. -may need to transfuse rbc if hgb<8. Decompensated diastolic congestive heart failure exacerbation with preserved systolic function -Held off on any diuretics due to low blood pressure on 03/21/2020 -Nephrology has been consulted to manage patient's fluid balance and to keep her net negative balance -On strict I's and O's, daily weights Chronic right pleural effusion with underexpansion of the right lung -evaluated by licensed staff mft, Dr. Guerrero-Did not require any thoracentesis or chest tube placement since she was not hypoxic -Repeat CT chest: loculated pleural effusion -pt remains on room air with o2 sat 95-97% without tachypnea, tachycardia, respiratory distress, or hypoxia -Thoracic surgery Dr. Garcia consulted. Chronic Hyponatremia secondary to congestive heart failure -Stable without significant fluctuations. -Sodium level with no signs of confusion, headache or seizure activity -Fluid balance is managed by nephrology Decompensated liver cirrhosis with pleural effusions and lower extremity edema -Due to hypotension, patient was transfused 25% albumin On 03/21/2020 and kept on midodrine 10 mg tid -Fluid balance is managed by nephrology -Telemetry -Strict I's and O's -Weigh daily pulmonary hypertension -Complicating her care coronary artery disease -No acute ischemic symptoms and denies chest pain, pressure, tightness or shortness of breath asthma -Compensated type 2 insulin-dependent diabetes -On insulin sliding scale per [facility] protocol with coverage -Fingersticks every before meals at bedtime -Consistent carbohydrate diet -Hypoglycemic protocol bradycardia requiring pacemaker placement -Telemetry mechanical fall with right hip fracture s/p 02/26/20 cemented hemiarthroplasty -Infected right hip prosthesis, status post incision and drainage and antibiotic bead insertion -PT, OT consulted -AR U evaluation gastroesophageal reflux disease -Chronic History of hepatic encephalopathy -On chronic lactulose DVT prophylaxis: Per orthopedic surgery on ASA 32 bid disposition: pending clinical improvement, awaiting thoracic surgery, ID recommendations. ARU screen. VS, I&O, 24H, Fishbone Vital Signs/I&O Vital Signs Date Time Temp Pulse Resp B/P (MAP) Pulse Ox O2 Delivery O2 Flow Rate FiO2 03/23/20 05:37 98.1 83 18 102/48 (66) 95 Room Air I&O- Last 24 Hours up to 6 AM 03/23/20 06:00 Intake Total 750 ml Output Total 790 ml Balance -40 ml Laboratory Data 24H LABS Laboratory Tests 2 03/22/20 12:01: Bedside Glucose (Misc Panel) 346H 03/22/20 16:48: Bedside Glucose (Misc Panel) 180H 03/22/20 22:53: Bedside Glucose (Misc Panel) 256H 03/23/20 06:19: Immature Granulocyte % (Auto) 0.5, Neutrophils (%) (Auto) 69.8H, Lymphocytes (%) (Auto) 11.8L, Monocytes (%) (Auto) 16.3H, Eosinophils (%) (Auto) 0.8, Basophils (%) (Auto) 0.8, Neutrophils # (Auto) 4.5, Lymphocytes # (Auto) 0.8L, Monocytes # (Auto) 1.0H, Eosinophils # (Auto) 0.1, Basophils # (Auto) 0.1, Nucleated Red B lood Cells % (auto) 0.0, Anion Gap 7L, Glomerular Filtration Rate 44.3, Calcium Level 9.8 CBC/BMP Laboratory Tests 03/23/20 06:19 Microbiology Microbiology 03/21/20 Blood Culture - Preliminary, Resulted No growth after 24 hours . All specim... 03/21/20 Blood Culture - Preliminary, Resulted No growth after 24 hours . All specim... LUCI OWENS MD Mar 23, 2020 08:00
[2020-03-23] MEDS ORDERED: PREVNAR 13 VACCINE SYRINGE IM ONE (09:00)
[2020-03-23] MEDS ORDERED: LIDOCAINE 1% MDV 20ML VIAL As Ordered ONE (11:18)
[2020-03-23] MEDS: LACTOBACILLUS ACIDOPHILUS CAP (BACID) PO SCH ×3 (13:12→22:08)
[2020-03-23] MEDS: rifAMPin 150MG CAPSULE PO SCH ×2 (13:15→22:07)
[2020-03-23 13:18] VITALS: BP 102/51
[2020-03-23 14:00] VITALS: BP 144/81
--- NOTE | 2020-03-23 15:00 | IPN ---
PROGRESS NOTE DATE: 03/23/2020 SUBJECTIVE: Ms. Cabello is seen this morning on her bedside. She is feeling better and denies any new complaints. The pain in her right hip is much better now. She denies any vomiting or diarrhea. She has no dyspnea or chest pain. She has large right pleural effusion and a CAT scan of chest was done yesterday, which did confirm moderate size partially loculated right pleural effusion with suspected partial lung collapse. She also had cirrhosis and ascites with possible suspicious hepatic mass lesion. PHYSICAL EXAMINATION: Temperature 96.7 degrees Fahrenheit, heart rate 64 per minute, respiratory rate 18 per minute. Blood pressure 102/48 mmHg and oxygen saturation 98% on room air. Head is atraumatic. Neck is supple and jugular venous distention (JVD) minimally elevated. Heart sounds are regular and lungs with diminished breath sounds on the right side. Abdomen is soft and distended with ascites, but nontender. Bowel sounds are present. Extremities have no cyanosis or clubbing. Right hip area dressing is intact. Neurologically, she is awake, alert and oriented x3. LABORATORY DATA: Today's labs showed WBC count 6.4, hemoglobin 8.1 and hematocrit 25.1, platelets 200. Sodium 126, potassium 3.3, BUN 36 and creatinine 1.23, glucose 179 and calcium 9.8. PROBLEMS: 1. Acute kidney injury superimposed on chronic kidney disease, most likely related to hypotension and volume depletion. Kidney function is slightly better today. 2. Hyponatremia. Sodium level is stable at present and is related to multiorgan problems. She has cirrhosis with ascites, congestive heart failure and acute kidney injury with diuretic use. She also received some IV fluids during and after surgery, which contributed to her hyponatremia. At present, she is suitable for diuretic due to hypotension and acute renal failure. We will continue to monitor her electrolytes on a daily basis. If her sodium level starts getting worse, then we can certainly intervene. 3. Hypokalemia, related to poor oral intake and potassium is being replaced with two doses of potassium chloride 20 mEq each. Electrolytes will be checked again tomorrow. 4. Anemia. Her anemia is worsened since she had surgery for her hip. She would benefit from transfusion when needed. 5. Infected right hip prosthesis, status post re-surgery. The patient remains on antibiotics and is currently afebrile. 6. Cirrhosis of the liver with ascites and possible hepatic mass. At present, we will monitor her closely without any aggressive diuresis. Further imaging of her liver would be deferred to hospitalist service. 7. Right pleural effusion. Dr. Garcia has commented and he does not feel that the patient is going to benefit from a thoracentesis in view of her multiple underlying conditions, will just monitor and see how she does.
--- NOTE | 2020-03-23 15:50 | REP ---
INDICATION: IV access for 6 weeks of vancomycin antibiotic treatment.. COMPARISON: None. TECHNIQUE: The procedure was performed under the direct supervision of Dr. Vieira. The risks and benefits of the procedure were explained to the patient and informed consent was obtained. The right basilic vein was localized using ultrasound guidance. The skin was prepped and draped in a sterile fashion. 2% lidocaine was used as a local anesthetic. Using ultrasound guidance the basilic vein was cannulated and a 0.018 guidewire was inserted and advanced. The guidewire was unable to be advanced into the SVC.. The needle was removed and a 4.5 German dilator and peel-away sheath was inserted over the guide wire. A 4.5 German single lumen catheter was cut to length of 32 cm. The dilator was removed and the catheter was inserted over the guide wire with the tip ending in the mid right subclavian vein. The peel-away sheath was removed and the catheter was flushed with heparinized saline as per Hospital protocol. The catheter was affixed to the skin and a sterile dressing was applied. The patient tolerated the procedure well and there were no immediate complications. 2.6 minutes of fluoro time was utilized for this procedure. FINDINGS: None IMPRESSION: PICC line insertion right basilic vein with the tip ending in the mid right subclavian vein. <Electronically signed by José Arriaga > 03/23/20 1549 <Electronically signed by Abdiel Vieira > 03/23/20 1542
[2020-03-23 16:27] VITALS: BP 107/54
[2020-03-23] MEDS ORDERED: SODIUM CHLORIDE 0.9% INJ 10 ML SYR IV PRN (20:00)
[2020-03-23 22:00] VITALS: BP 106/54
[2020-03-23] MEDS: ACETAMINOPHEN TAB 650MG DOSE (2X325MG) PO PRN (22:08)
[2020-03-24 06:00] VITALS: BP 107/51
[2020-03-24] MEDS ORDERED: SENOKOT S TAB PO PRN (06:00)
[2020-03-24] MEDS: SODIUM CHLORIDE 0.9% INJ 10 ML SYR IV SCH ×2 (06:23→17:53)
[2020-03-24 06:51] LABS: BASO # 0.1 10^3/uL (0.0-0.2); BASO % 0.7 % (0.0-1.0); EOS # 0.1 10^3/uL (0.0-0.5); EOS % 0.9 % (0.0-3.0); HEMATOCRIT 24.2 % (36.0-47.0); HEMOGLOBIN 7.8 g/dl (12.0-15.5); LYMPH # 0.7 10^3/uL (1.5-5.0); LYMPH % 9.7 % (24.0-44.0); MEAN CORPUSCULAR HEMOGLOBIN 32.6 pg (27.0-33.0); MEAN CORPUSCULAR HGB CONC 32.2 g/dl (32.0-36.5); MEAN CORPUSCULAR VOLUME 101.3 fl (80.0-96.0); MONO # 1.2 10^3/uL (0.0-0.8); MONO % 15.4 % (0.0-5.0); NEUTROPHILS # 5.4 10^3/uL (1.5-8.5); NEUTROPHILS % 72.5 % (36.0-66.0); PLATELET COUNT, AUTOMATED 202 10^3/uL (150-450); RED BLOOD COUNT 2.39 10^6/uL (4.00-5.40); WHITE BLOOD COUNT 7.5 10^3/uL (4.0-10.0)
[2020-03-24 07:13] LABS: CALCIUM LEVEL 10.4 MG/DL (8.8-10.2); CREATININE FOR GFR 1.16 MG/DL (0.55-1.30); GLOMERULAR FILTRATION RATE 47.4 (>32); POTASSIUM SERUM 3.8 MEQ/L (3.5-5.1)
[2020-03-24] MEDS: LEVEMIR (INSULIN DETEMIR) 1 UNITS/0.01ML SC SCH ×2 (07:41→21:26)
[2020-03-24] MEDS: HumaLOG INSULIN (NovoLOG) PER UNIT SC SCH ×4 (07:41→21:00)
[2020-03-24] MEDS: OMEPRAZOLE 20 MG CAP PO SCH (07:42)
[2020-03-24] MEDS: rifAMPin 150MG CAPSULE PO SCH ×2 (07:42→21:25)
[2020-03-24] MEDS: ASPIRIN 81 MG ENTERIC TAB PO SCH ×2 (07:42→21:24)
[2020-03-24] MEDS: LACTOBACILLUS ACIDOPHILUS CAP (BACID) PO SCH ×4 (07:42→21:25)
[2020-03-24] MEDS: MIDODRINE 5 MG TAB PO SCH ×3 (07:43→15:34)
[2020-03-24] MEDS: LACTULOSE 20 GM/30 ML SYRUP UD PO SCH ×3 (07:43→21:24)
[2020-03-24 08:59] LABS: C REACTIVE PROTEIN QUANTITATIV 4.92 MG/DL (0.00-0.30)
[2020-03-24] MEDS: SPIRONOLACTONE 50 MG TAB PO SCH (09:04)
[2020-03-24 09:45] LABS: ERYTHROCYTE SEDIMENTATION RATE 63 mm/hr (0-30)
[2020-03-24 11:46] VITALS: BP 114/62
--- NOTE | 2020-03-24 12:58 | IPN ---
NEPHROLOGY PROGRESS NOTE DATE: 03/24/2020 SUBJECTIVE: Ms. Cabello is seen this morning on her bedside. She is feeling about the same. Denies any nausea or vomiting. She remains somewhat short of breath, but denies any chest pain. No fever or chills. PHYSICAL EXAMINATION: Temperature 98.7 degrees Fahrenheit, heart rate 71 per minute and respiratory rate 18 per minute. Blood pressure 107/50 mmHg and oxygen saturation 95% on room air. Head: Atraumatic. Neck: Supple and JVD mildly elevated. Heart: Sounds are irregular. Lungs: With diminished breath sounds on the right side. Abdomen: Distended with ascites and bowel sounds are present. Extremities: Without any cyanosis or clubbing. Right hip area dressing is intact and HALLE drains are present. Lower extremity edema is about 1+ bilaterally. Neurologically: She is awake, alert and oriented times 3. LABORATORY DATA: Today's labs show WBC count 7.5, hemoglobin 7.8 and hematocrit 24.2. Sodium 124, potassium 3.8, CO2 33, BUN 25, creatinine 1.16, glucose 244 and calcium 10.4. C-reactive protein is 4.98. PROBLEMS/PLAN: 1. Acute renal failure superimposed on chronic kidney disease: Kidney function is gradually improving since her diuretics were stopped. 2. Cirrhosis with ascites: Patient denies any use of alcohol. Her cirrhosis is certainly non-alcoholic. She does have ascites, but no urgent indication for a paracentesis. 3. Hyponatremia: Sodium level has worsened slightly; however, her blood sugar is also 244 today so she probably has some pseudohyponatremia, but also true hyponatremia due to congestive heart failure and cirrhosis in addition to her kidney problems. I am starting spironolactone 50 mg once a day and we will continue to monitor her electrolytes. 4. Anemia: Her anemia has worsened related to right hip surgery and she is likely to require transfusion. I will defer to her primary care service. 5. Right hip infection: Patient had surgery done and infected hip prosthesis was removed and replaced. She remains on antibiotics.
[2020-03-24 14:00] VITALS: BP 108/60
--- NOTE | 2020-03-24 15:03 | IPNPDOC ---
Text Note Date of Service The patient was seen on 03/24/20. NOTE Subjective: Patient seen and examined at bedside. No new medical complaints. No acute overnight events reported. Objective: VITAL SIGNS: See below GENERAL APPEARANCE: slight pallor. no cyanosis. Hard of hearing, appears her stated age, frail appearing Awake, alert, oriented to person and place. Answers questions appropriately Speech is fluent. No respiratory distress or use of respiratory accessory muscles HEENT: No cervical lymphadenopathy. Dry mucous membranes. No carotid bruit CARDIOVASCULAR: S1, S2. Systolic ejection murmur at the apex radiating to the carotids. Regular rate and rhythm LUNGS: Diminished breath sounds and crackles at the right base. Left lung is clear ABDOMEN: Soft, nontender, nondistended, positive bowel sounds 4 quadrants. Well-healed surgical scars EXTREMITIES: Postop right hip. 1+ pitting edema bilaterally. Ecchymotic areas bilateral lower extremities SKIN: dry skin and some erythema on the neck from scratching ASSESSMENT/PLAN: 84-year-old female with past medical history significant for liver cirrhosis, type 2 diabetes, chronic diastolic heart failure, 2018 Right thoracentesis for a pleural effusion with subsequent right lung entrapment bradycardia requiring pacemaker, hypertension, chronic underexpansion of the right lung, status post thoracentesis in 2018. Cardio dextrorotation, asthma and dyslipidemia who had a mechanical fall at home on 11/13/2019 and underwent rehabilitation at [facility] and discharged on 02/24/2020. Patient had another fall reported severe pain on the right side and was sent to [facility] and subsequently transferred to [facility] on February 24 when she was admitted to the medical service and evaluated by orthopedic surgery. At that time patient was found to have a right-sided pleural effusion from liver cirrhosis, which did not require intervention since she was saturating 95% on room air and was not tachypnea, but was evaluated by lens coater, Dr. Guerrero and had a hemiarthroplasty of the right hip cemented on 02/26/2020 by orthopedic surgery and discharged on aspirin 81 mg twice a day for 35 days for DVT prophylaxis to the acute rehabilitation unit at [facility]. While at the acute rehabilitation unit. Patient had fluid overload with acute diastolic heart failure exacerbation with hypervolemic hyponatremia managed by medical laboratory technologist Dr. Miranda Castelan and Dr. Rose. Despite pain medications to continue to complain of pain and underwent spinal anesthesia for incision and drainage of an infected prosthesis of the right hip, status post vancomycin beads in the operating room with Dr. Live on 03/21/2020, complicated by postop hypotension requiring vasopressor. Hospitalist was asked to admit the patient, postoperatively for an Infected prosthesis of the right hip. She complains of painful right at 10 on a pain scale of the right hip. She denies any chest pain, pressure, tightness, lightheadedness, dizziness, shortness of breath, fever, chills, cough, nausea, vomiting, diarrhea, abdominal pain, bright red blood per rectum, melena, black tarry stools, dysuria, urgency, frequency, changes in appetite, vision, ear ache, diplopia, ear discharge, sore throat, bilateral upper or lower extremity paresthesias. #Infected prosthesis of the right hip -Orthopedic surgery Dr. Julius Pate consulted. -03/21/20 Status post incision and drainage, Irrigation and debridement of right hip, Exchange arthroplasty of the right hemiarthroplasty femoral head and sleeve, Removal of cerclage cable, Insertion of antibiotic beads. -Monitor for fevers. Daily CBC with differential -monitoring CRP, sedimentation rate, and pro-calcitonin -Intravenous vancomycin managed by pharmacy with peak and trough monitoring and adjustment renally - ID consulted with chart review - will need to be re-consulted when available in-house next week - recommendations noted - IV vancomycin x 6weeks - po rifampin 300 mg pid - PICC Line -PFS consult for Home IV vanco x total 6weeks -PICC Line once blood cultures are negative -on IV vancomycin, currently day #4 #Medication-induced postoperative hypotension -Patient developed hypotension with mean arterial pressure of 50 systolic pressure is 66 mmHg in the recovery room On 03/21/2020 requiring phenylephrine -Secondary to fentanyl given for pain, and anesthesia -Due to decompensated diastolic congestive heart failure, and hypervolemic hyponatremia, we avoided intravenous fluids. -Transfused with 25% albumin On 03/21/2020 -midodrine 10 mg tid to keep mean arterial pressure greater than 65 -Patient had 200 mL of blood loss in the operating room and had 80 mL in recovery through the drain on 03/21/20. -may need to transfuse rbc if hgb<8. #Decompensated diastolic congestive heart failure exacerbation with preserved systolic function -Held off on any diuretics due to low blood pressure on 03/21/2020 -Nephrology has been consulted to manage patient's fluid balance and to keep her net negative balance -On strict I's and O's, daily weights #Chronic right pleural effusion with underexpansion of the right lung -evaluated by lens coater, Dr. Guerrero-Did not require any thoracentesis or chest tube placement since she was not hypoxic -Repeat CT chest: loculated pleural effusion -pt remains on room air with o2 sat 95-97% without tachypnea, tachycardia, respiratory distress, or hypoxia -extensive discussion with pulmonary - no further recommendations - no further evaluation or treatment indicated at this time #Chronic Hyponatremia secondary to congestive heart failure -Stable without significant fluctuations. -Sodium level with no signs of confusion, headache or seizure activity -Fluid balance is managed by nephrology #Decompensated liver cirrhosis with pleural effusions and lower extremity edema -Due to hypotension, patient was transfused 25% albumin On 03/21/2020 and kept on midodrine 10 mg tid -Fluid balance is managed by nephrology -Telemetry -Strict I's and O's -Weigh daily #pulmonary hypertension -Complicating her care # coronary artery disease -No acute ischemic symptoms and denies chest pain, pressure, tightness or shortness of breath #asthma -Compensated # type 2 insulin-dependent diabetes -On insulin sliding scale per [facility] protocol with coverage -Fingersticks every before meals at bedtime -Consistent carbohydrate diet -Hypoglycemic protocol #bradycardia requiring pacemaker placement -Telemetry #mechanical fall with right hip fracture s/p 02/26/20 cemented hemiarthroplasty -Infected right hip prosthesis, status post incision and drainage and antibiotic bead insertion -PT, OT consulted -AR U evaluation #gastroesophageal reflux disease -Chronic #History of hepatic encephalopathy -On chronic lactulose #DVT prophylaxis: Per orthopedic surgery on ASA 325 bid disposition: pending clinical improvement VS,Fishbone, I+O VS, Fishbone, I+O Laboratory Tests 03/24/20 06:26 Vital Signs Date Time Temp Pulse Resp B/P (MAP) Pulse Ox O2 Delivery O2 Flow Rate FiO2 03/24/20 14:00 98.6 84 17 108/60 (76) 96 Room Air I&O- Last 24 Hours up to 6 AM 03/24/20 05:59 Intake Total 1980 ml Output Total 175 ml Balance 1805 ml SELWYN NARAYAN MD Mar 24, 2020 15:03
[2020-03-24 15:35] VITALS: BP 112/61
[2020-03-24] MEDS: VANCOMYCIN HCL 1,000 MG, VIAL MATE ADAPTER 1 EACH in D5W 250 ML IV SCH (15:52)
[2020-03-24] MEDS: ACETAMINOPHEN TAB 650MG DOSE (2X325MG) PO PRN (21:25)
[2020-03-25 06:00] VITALS: BP 113/58
[2020-03-25 06:14] LABS: BASO % 0.4 % (0.0-1.0); EOS # 0.1 10^3/uL (0.0-0.5); EOS % 0.7 % (0.0-3.0); HEMATOCRIT 25.1 % (36.0-47.0); HEMOGLOBIN 8.2 g/dl (12.0-15.5); LYMPH # 0.5 10^3/uL (1.5-5.0); LYMPH % 5.8 % (24.0-44.0); MEAN CORPUSCULAR HEMOGLOBIN 32.5 pg (27.0-33.0); MEAN CORPUSCULAR HGB CONC 32.7 g/dl (32.0-36.5); MEAN CORPUSCULAR VOLUME 99.6 fl (80.0-96.0); MONO # 1.3 10^3/uL (0.0-0.8); MONO % 14.9 % (0.0-5.0); NEUTROPHILS % 77.4 % (36.0-66.0); PLATELET COUNT, AUTOMATED 219 10^3/uL (150-450); RED BLOOD COUNT 2.52 10^6/uL (4.00-5.40)
[2020-03-25] MEDS: SODIUM CHLORIDE 0.9% INJ 10 ML SYR IV SCH ×2 (06:16→17:54)
[2020-03-25 06:40] LABS: C REACTIVE PROTEIN QUANTITATIV 3.96 MG/DL (0.00-0.30); CALCIUM LEVEL 10.3 MG/DL (8.8-10.2); CREATININE FOR GFR 1.14 MG/DL (0.55-1.30); GLOMERULAR FILTRATION RATE 48.3 (>32); POTASSIUM SERUM 4.2 MEQ/L (3.5-5.1)
[2020-03-25 07:57] LABS: ERYTHROCYTE SEDIMENTATION RATE 56 mm/hr (0-30)
[2020-03-25] MEDS: LACTULOSE 20 GM/30 ML SYRUP UD PO SCH ×3 (08:32→21:12)
[2020-03-25] MEDS: ASPIRIN 81 MG ENTERIC TAB PO SCH ×2 (08:33→21:12)
[2020-03-25] MEDS: OMEPRAZOLE 20 MG CAP PO SCH (08:33)
[2020-03-25] MEDS: rifAMPin 150MG CAPSULE PO SCH ×2 (08:33→21:13)
[2020-03-25] MEDS: LACTOBACILLUS ACIDOPHILUS CAP (BACID) PO SCH ×4 (08:33→21:13)
[2020-03-25] MEDS: HumaLOG INSULIN (NovoLOG) PER UNIT SC SCH ×4 (08:35→21:00)
[2020-03-25] MEDS: MIDODRINE 5 MG TAB PO SCH ×3 (08:36→16:20)
[2020-03-25] MEDS: FUROSEMIDE 40 MG TAB PO SCH (08:42)
[2020-03-25] MEDS: SPIRONOLACTONE 50 MG TAB PO SCH (08:42)
[2020-03-25] MEDS: LEVEMIR (INSULIN DETEMIR) 1 UNITS/0.01ML SC SCH ×2 (08:43→21:12)
[2020-03-25] MEDS: VANCOMYCIN HCL 1,000 MG, VIAL MATE ADAPTER 1 EACH in D5W 250 ML IV SCH (10:12)
--- NOTE | 2020-03-25 12:38 | IPNPDOC ---
Text Note Date of Service The patient was seen on 03/25/20. NOTE Subjective: Patient seen and examined at bedside. No new medical complaints. No acute overnight events reported. Objective: VITAL SIGNS: See below GENERAL APPEARANCE: slight pallor. no cyanosis. Hard of hearing, appears her stated age, frail appearing Awake, alert, oriented to person and place. Answers questions appropriately Speech is fluent. No respiratory distress or use of respiratory accessory muscles HEENT: No cervical lymphadenopathy. Dry mucous membranes. No carotid bruit CARDIOVASCULAR: S1, S2. Systolic ejection murmur at the apex radiating to the carotids. Regular rate and rhythm LUNGS: Diminished breath sounds and crackles at the right base. Left lung is clear ABDOMEN: Soft, nontender, nondistended, positive bowel sounds 4 quadrants. Well-healed surgical scars EXTREMITIES: Postop right hip. 1+ pitting edema bilaterally. Ecchymotic areas bilateral lower extremities SKIN: dry skin and some erythema on the neck from scratching ASSESSMENT/PLAN: 84-year-old female with past medical history significant for liver cirrhosis, type 2 diabetes, chronic diastolic heart failure, 2018 Right thoracentesis for a pleural effusion with subsequent right lung entrapment bradycardia requiring pacemaker, hypertension, chronic underexpansion of the right lung, status post thoracentesis in 2018. Cardio dextrorotation, asthma and dyslipidemia who had a mechanical fall at home on 11/13/2019 and underwent rehabilitation at [facility] and discharged on 02/24/2020. Patient had another fall reported severe pain on the right side and was sent to [facility] and subsequently transferred to [facility] on February 24 when she was admitted to the medical serv ice and evaluated by orthopedic surgery. At that time patient was found to have a right-sided pleural effusion from liver cirrhosis, which did not require intervention since she was saturating 95% on room air and was not tachypnea, but was evaluated by technical assistant, Dr. Guerrero and had a hemiarthroplasty of the right hip cemented on 02/26/2020 by orthopedic surgery and discharged on aspirin 81 mg twice a day for 35 days for DVT prophylaxis to the acute rehabilitation unit at [facility]. While at the acute rehabilitation unit. Patient had fluid overload with acute diastolic heart failure exacerbation with hypervolemic hyponatremia managed by white lead filterer Dr. Miranda Castelan and Dr. Rose. De spite pain medications to continue to complain of pain and underwent spinal anesthesia for incision and drainage of an infected prosthesis of the right hip, status post vancomycin beads in the operating room with Dr. Live on 03/21/2020, complicated by postop hypotension requiring vasopressor. Hospitalist was asked to admit the patient, postoperatively for an Infected prosthesis of the right hip. She complains of painful right at 10 on a pain scale of the right hip. She denies any chest pain, pressure, tightness, lightheadedness, dizziness, shortness of breath, fever, chills, cough, nausea, vomiting, diarrhea, abdominal pain, bright red blood per rectum, melena, black tarry stools, dysuria, urgency, frequency, changes in appetite, vision, ear ache, diplopia, ear discharge, sore throat, bilateral upper or lower extremity paresthesias. #Infected prosthesis of the right hip -Orthopedic surgery Dr. Julius Pate consulted. -03/21/20 Status post incision and drainage, Irrigation and debridement of right hip, Exchange arthroplasty of the right hemiarthroplasty femoral head and sleeve, Removal of cerclage cable, Insertion of antibiotic beads. -Monitor for fevers. Daily CBC with differential -monitoring CRP, sedimentation rate, and pro-calcitonin -Intravenous vancomycin managed by pharmacy with peak and trough monitoring and adjustment renally - ID consulted with chart review - will need to be re-consulted when available in-house next week - recommendations noted - IV vancomycin x 6weeks - po rifampin 300 mg pid - PICC Line -PFS consult for Home IV vanco x total 6weeks -PICC Line once blood cultures are negative -on IV vancomycin, currently day #5 #Medication-induced postoperative hypotension -Patient developed hypotension with mean arterial pressure of 50 systolic pressure is 66 mmHg in the recovery room On 03/21/2020 requiring phenylephrine -Secondary to fentanyl given for pain, and anesthesia -Due to decompensated diastolic congestive heart failure, and hypervolemic hyponatremia, we avoided intravenous fluids. -Transfused with 25% albumin On 03/21/2020 -midodrine 10 mg tid to keep mean arterial pressure greater than 65 -Patient had 200 mL of blood loss in the operating room and had 80 mL in recovery through the drain on 03/21/20. -may need to transfuse rbc if hgb<8. #Decompensated diastolic congestive heart failure exacerbation with preserved systolic function -Held off on any diuretics due to low blood pressure on 03/21/2020 -Nephrology has been consulted to manage patient's fluid balance and to keep her net negative balance -On strict I's and O's, daily weights #Chronic right pleural effusion with underexpansion of the right lung -evaluated by technical assistant, Dr. Guerrero-Did not require any thoracentesis or chest tube placement since she was not hypoxic -Repeat CT chest: loculated pleural effusion -pt remains on room air with o2 sat 95-97% without tachypnea, tachycardia, respiratory distress, or hypoxia -extensive discussion with pulmonary - no further recommendations - no further evaluation or treatment indicated at this time #Chronic Hyponatremia secondary to congestive heart failure -Stable without significant fluctuations. -Sodium level with no signs of confusion, headache or seizure activity -Fluid balance is managed by nephrology #Decompensated liver cirrhosis with pleural effusions and lower extremity edema -Due to hypotension, patient was transfused 25% albumin On 03/21/2020 and kept on midodrine 10 mg tid -Fluid balance is managed by nephrology -Telemetry -Strict I's and O's -Weigh daily #pulmonary hypertension -Complicating her care # coronary artery disease -No acute ischemic symptoms and denies chest pain, pressure, tightness or shortness of breath #asthma -Compensated # type 2 insulin-dependent diabetes -On insulin sliding scale per [facility] protocol with coverage -Fingersticks every before meals at bedtime -Consistent carbohydrate diet -Hypoglycemic protocol #bradycardia requiring pacemaker placement -Telemetry #mechanical fall with right hip fracture s/p 02/26/20 cemented hemiarthroplasty -Infected right hip prosthesis, status post incision and drainage and antibiotic bead insertion -PT, OT consulted -AR U evaluation #gastroesophageal reflux disease -Chronic #History of hepatic encephalopathy -On chronic lactulose #DVT prophylaxis: Per orthopedic surgery on ASA 325 bid disposition: pending clinical improvement VS,Tlbone, I+O VS, Fishbone, I+O Laboratory Tests 03/25/20 05:47 Vital Signs Date Time Temp Pulse Resp B/P (MAP) Pulse Ox O2 Delivery O2 Flow Rate FiO2 03/25/20 06:00 98.0 77 17 113/58 (76) 97 Room Air I&O- Last 24 Hours up to 6 AM 03/25/20 06:00 Intake Total 1940 ml Output Total 260 ml Balance 1680 ml LALDIN,SELWYN S. MD Mar 25, 2020 12:38
--- NOTE | 2020-03-25 13:04 | IPN ---
PROGRESS NOTE DATE: 03/25/2020 Mrs. Cabello is seen this morning on her bedside. She is feeling discouraged today due to complicated hospitalization and long stay. She denies any nausea or vomiting. She has no dyspnea, chest pain, fever, or chills. She has a wound vacuum-assisted closure (VAC) dressing to her right hip. PHYSICAL EXAMINATION: Temperature 98 degrees Fahrenheit, heart rate 77 per minute, respiratory rate 17 per minute, blood pressure 113/58 mmHg, and oxygen saturation 97% on room air. Head is atraumatic. Neck supple, and jugular venous distention (JVD) minimally above the clavicle. Heart sounds are irregular in rhythm. Lungs with diminished breath sounds, particularly on the right side. Abdomen obese, soft, and nontender. She does have ascites. Extremities without any cyanosis or clubbing. Right hip has a wound VAC dressing. Lower extremity edema is only trace to 1+. Today's labs show WBC count 9.0, hemoglobin 8.2, and hematocrit 25.1. Sodium 125, potassium 4.2, chloride 87, CO2 of 30, BUN 19, and creatinine 1.14. Glucose 171 and calcium 10.3. A C-reactive protein is 3.96. PROBLEMS: 1. Acute kidney injury superimposed on chronic kidney disease. No significant change in kidney function over last 24 hours. At this point, we will continue to monitor her electrolytes and renal function closely. 2. Hyponatremia. This is a chronic issue and related to cirrhosis of liver, congestive heart failure, and kidney disease. She should remain on restricted fluid intake. Diuretics are being increased. I am adding Lasix 40 mg today, and electrolytes will be checked again tomorrow. 3. Congestive heart failure and right pleural effusion. She has a large right pleural effusion in the setting of ascites and congestive heart failure. Dr. Garcia does not feel that she is likely to benefit from a thoracentesis or chest tube. At present, we will continue to slowly diurese her. She is on spironolactone 50 mg daily, and Lasix 40 mg daily is being added. 4. Anemia. At present, anemia is stable and does not need any urgent intervention. 5. Hypercalcemia. She has developed mild hypercalcemia since her recent hip procedure. At this point, we will continue to monitor closely, as she is not getting any vitamin D supplement. She is also not receiving any calcium supplement. 6. Infected hip prosthesis. Patient remains on vancomycin and will need to be watched closely.
[2020-03-25 14:00] VITALS: BP 127/74
[2020-03-25] MEDS: ACETAMINOPHEN TAB 650MG DOSE (2X325MG) PO PRN (21:16)
[2020-03-25 22:00] VITALS: BP 128/69
[2020-03-26 03:04] LABS: BASO # 0.1 10^3/uL (0.0-0.2); BASO % 0.7 % (0.0-1.0); EOS # 0.2 10^3/uL (0.0-0.5); EOS % 1.4 % (0.0-3.0); HEMATOCRIT 26.9 % (36.0-47.0); HEMOGLOBIN 8.4 g/dl (12.0-15.5); LYMPH # 0.9 10^3/uL (1.5-5.0); LYMPH % 8.9 % (24.0-44.0); MEAN CORPUSCULAR HEMOGLOBIN 32.3 pg (27.0-33.0); MEAN CORPUSCULAR HGB CONC 31.2 g/dl (32.0-36.5); MEAN CORPUSCULAR VOLUME 103.5 fl (80.0-96.0); MONO # 1.5 10^3/uL (0.0-0.8); MONO % 14.1 % (0.0-5.0); NEUTROPHILS # 7.7 10^3/uL (1.5-8.5); NEUTROPHILS % 74.2 % (36.0-66.0); PLATELET COUNT, AUTOMATED 254 10^3/uL (150-450); WHITE BLOOD COUNT 10.4 10^3/uL (4.0-10.0)
[2020-03-26 03:23] LABS: ERYTHROCYTE SEDIMENTATION RATE 46 mm/hr (0-30)
[2020-03-26 03:32] LABS: VANCOMYCIN LEVEL TROUGH 22.6 UG/ML (10.0-20.0)
[2020-03-26 04:14] LABS: C REACTIVE PROTEIN QUANTITATIV 3.37 MG/DL (0.00-0.30); CALCIUM LEVEL 10.1 MG/DL (8.8-10.2); CREATININE FOR GFR 1.18 MG/DL (0.55-1.30); GLOMERULAR FILTRATION RATE 46.5 (>32); POTASSIUM SERUM 3.5 MEQ/L (3.5-5.1)
[2020-03-26] MEDS: SODIUM CHLORIDE 0.9% INJ 10 ML SYR IV SCH ×2 (05:04→17:44)
[2020-03-26 06:00] VITALS: BP 106/50
--- NOTE | 2020-03-26 08:11 | IPN ---
PROGRESS NOTE DATE: 03/26/2020 SUBJECTIVE: Ada is seen while rounding for the Hospitalist. Complicated 84-year-old currently being treated for infected right hip prosthesis, status post incision and drainage, irrigation and debridement, insertion of antibiotic beads on 03/21/20. Postop course complicated by hypotension requiring pressor therapy, decompensated diastolic congestive heart failure, decompensated liver cirrhosis with pleural effusions and lower extremity edema with a history of __ encephalopathy, Type 2 diabetes, and acute kidney injury superimposed on chronic kidney disease with hyponatremia. She was sleeping when I saw her, she indicated no distress. She looks like she has had no recent fevers. PHYSICAL EXAMINATION: VITAL SIGNS: Blood pressure 106/58, afebrile. GENERAL APPEARANCE: Resting comfortably. LUNGS: Clear. HEART: Regular rhythm, there is a 1/6 systolic ejection murmur. ABDOMEN: Soft, nontender. No masses. EXTREMITIES: Trace peripheral edema. LABORATORY DATA: White count 10.4, hemoglobin 8.4, platelets 254,000, sodium 126 (chronic hyponatremia from cirrhosis), potassium 3.5, BUN 28, creatinine 1.18. Vancomycin trough level was elevated last night, dose to be managed by Clinical Pharmacology. IMPRESSION: 1. Infected right hip prosthesis. She has had IV antibiotics with Vancomycin, dose adjustment per Clinical Pharmacology. IV Vancomycin x6 weeks, p.o. Rifampin 300 mg b.i.d. We need to consult Infectious Disease formally on Monday. Currently receiving helpful "curbside" consultation. 2. Decompensated diastolic congestive heart failure with preserved ejection fraction, furosemide was restarted yesterday by Nephrology. 3. Chronic kidney disease. Nephrology is on the case and helping managing this. 4. Cirrhosis with chronic hyponatremia, furosemide restarted yesterday. Sodium level is stable. No ascites on exam. 5. Type 2 diabetes. Blood sugars have been in the 100 to 200 range which is satisfactory. 6. ? lung mass, apparently there is a lung mass on CT scan. Pulmonary was consulted but after discussion of the case prior my assuming the patient's care no intervention was felt to be needed and Pulmonary consultation was apparently canceled yesterday.
[2020-03-26] MEDS: VANCOMYCIN HCL 1,000 MG, VIAL MATE ADAPTER 1 EACH in D5W 250 ML IV SCH (08:58)
[2020-03-26] MEDS: LACTULOSE 20 GM/30 ML SYRUP UD PO SCH ×3 (08:58→20:51)
[2020-03-26] MEDS: LEVEMIR (INSULIN DETEMIR) 1 UNITS/0.01ML SC SCH ×2 (08:59→20:50)
[2020-03-26] MEDS: POTASSIUM CHLORIDE 10 MEQ SR TABLET PO SCH ×2 (09:00→20:49)
[2020-03-26] MEDS: SPIRONOLACTONE 50 MG TAB PO SCH ×2 (09:00→17:43)
[2020-03-26] MEDS: HumaLOG INSULIN (NovoLOG) PER UNIT SC SCH ×4 (09:00→20:52)
[2020-03-26] MEDS: LACTOBACILLUS ACIDOPHILUS CAP (BACID) PO SCH ×4 (09:00→20:49)
[2020-03-26] MEDS: rifAMPin 150MG CAPSULE PO SCH ×2 (09:01→20:49)
[2020-03-26] MEDS: FUROSEMIDE 40 MG TAB PO SCH (09:01)
[2020-03-26] MEDS: MIDODRINE 5 MG TAB PO SCH ×4 (09:01→16:00)
[2020-03-26] MEDS: ASPIRIN 81 MG ENTERIC TAB PO SCH ×2 (09:01→20:49)
[2020-03-26] MEDS: OMEPRAZOLE 20 MG CAP PO SCH (09:01)
[2020-03-26 14:00] VITALS: BP 105/50
--- NOTE | 2020-03-26 15:13 | IPN ---
NEPHROLOGY PROGRESS NOTE DATE: 03/26/2020 SUBJECTIVE: Ms. Cabello is seen this morning on her bedside. She is resting comfortably at present. She has a wound-VAC dressing on her right hip. She denies any dyspnea, chest pain, nausea or vomiting. She remains on vancomycin for infection in her right hip prosthesis for which she had prosthetic hip removed and replaced. She has a large right pleural effusion, cirrhosis with ascites, congestive heart failure with peripheral edema. PHYSICAL EXAMINATION: Temperature 97.6 degrees Fahrenheit, heart rate 78 per minute and respiratory rate 18 per minute. Blood pressure 106/50 mmHg and oxygen saturation 96% on room air. Head: Atraumatic. Neck: Supple and JVD mildly elevated. Heart: Sounds are irregular in rhythm. Lungs: With diminished breath sounds on the right side. Abdomen: Soft, distended with ascites and nontender. Bowel sounds are present. Extremities: Without any cyanosis or clubbing. Right hip area wound is with wound-VAC dressing. Lower extremity edema as improved significantly. LABORATORY DATA: Today's labs show WBC count up to 10.4, hemoglobin 8.4 and hematocrit 26.9. Sodium 126, potassium 3.5, CO2 32, BUN 20, creatinine 1.18 and calcium level 10.1 PROBLEMS/PLAN: 1. Hyponatremia: Sodium level gradually improving. We will continue our efforts to gently diurese her. 2. Hypokalemia: Potassium level is borderline low. I am increasing her spironolactone to 50 mg twice a day in view of ascites and congestive heart failure. We will also give her potassium supplement 10 mEq twice a day for a few days. 3. Congestive heart failure and right sided pleural effusion: She has a large right pleural effusion and volume status has been decompensated. She is receiving Lasix 40 mg daily and I am increasing her spironolactone to 50 mg twice a day. 4. Acute on chronic kidney disease: Kidney function is mostly stable without any significant change for the last 4 days. 5. Hypercalcemia most likely related to recent hip surgery and I.V. fluids given: Calcium level has improved. No specific intervention is needed. 6. Infection in right hip: She remains on vancomycin with vancomycin trough level of 22.6 today. We will need to monitor closely in view of her CKD. 7. Anemia: At present her anemia is stable and she does not need urgent transfusion.
[2020-03-26 22:00] VITALS: BP 102/56
[2020-03-27] MEDS: SODIUM CHLORIDE 0.9% INJ 10 ML SYR IV SCH ×2 (05:16→17:06)
[2020-03-27 06:00] VITALS: BP 103/57
--- NOTE | 2020-03-27 07:42 | IPN ---
PROGRESS NOTE DATE: 03/27/2020 SUBJECTIVE: Ada is seen on [address], really no change from yesterday. She feels a little better than the day before. She actually feels a little stronger as well. She has multiple medical problems that were listed yesterday. She has been seen by Nephrology, appreciate their input. Diuretic doses have been adjusted to deal with her ascites and pleural effusions. PHYSICAL EXAMINATION: VITAL SIGNS: Blood pressure 102/56, afebrile, 99% O2 saturation on room air. GENERAL: Alert and conversant. LUNGS: Clear. HEART: Regular rhythm. ABDOMEN: Soft, nontender. EXTREMITIES: Right hip has a Wound-Vac on. Trace peripheral edema. LABORATORY DATA: Labs are all pending today. ASSESSMENT: In the absence of morning labs, and formulating a plan for her, anticipate will be maintaining the course as listed yesterday. The diuretic doses are being adjusted by Nephrology, appreciate their input. Check back on her case later today when morning labs are returned; at 7:30 in the morning there are no labs yet.
[2020-03-27 08:51] LABS: BASO # 0.1 10^3/uL (0.0-0.2); BASO % 0.7 % (0.0-1.0); EOS # 0.1 10^3/uL (0.0-0.5); EOS % 1.5 % (0.0-3.0); HEMATOCRIT 28.9 % (36.0-47.0); HEMOGLOBIN 9.1 g/dl (12.0-15.5); LYMPH # 0.8 10^3/uL (1.5-5.0); LYMPH % 9.4 % (24.0-44.0); MEAN CORPUSCULAR HEMOGLOBIN 32.7 pg (27.0-33.0); MEAN CORPUSCULAR HGB CONC 31.5 g/dl (32.0-36.5); MONO # 1.3 10^3/uL (0.0-0.8); MONO % 14.8 % (0.0-5.0); NEUTROPHILS # 6.3 10^3/uL (1.5-8.5); PLATELET COUNT, AUTOMATED 252 10^3/uL (150-450); RED BLOOD COUNT 2.78 10^6/uL (4.00-5.40); WHITE BLOOD COUNT 8.7 10^3/uL (4.0-10.0)
[2020-03-27] MEDS: ASPIRIN 81 MG ENTERIC TAB PO SCH ×2 (09:05→21:02)
[2020-03-27] MEDS: OMEPRAZOLE 20 MG CAP PO SCH (09:05)
[2020-03-27] MEDS: LACTULOSE 20 GM/30 ML SYRUP UD PO SCH ×3 (09:05→21:00)
[2020-03-27] MEDS: MIDODRINE 5 MG TAB PO SCH ×3 (09:05→17:05)
[2020-03-27] MEDS: SPIRONOLACTONE 50 MG TAB PO SCH ×2 (09:05→17:05)
[2020-03-27] MEDS: LACTOBACILLUS ACIDOPHILUS CAP (BACID) PO SCH ×4 (09:05→21:02)
[2020-03-27] MEDS: VANCOMYCIN HCL 1,000 MG, VIAL MATE ADAPTER 1 EACH in D5W 250 ML IV SCH (09:05)
[2020-03-27 09:06] LABS: C REACTIVE PROTEIN QUANTITATIV 3.56 MG/DL (0.00-0.30); CALCIUM LEVEL 10.4 MG/DL (8.8-10.2); CREATININE FOR GFR 1.19 MG/DL (0.55-1.30); POTASSIUM SERUM 3.5 MEQ/L (3.5-5.1)
[2020-03-27] MEDS: POTASSIUM CHLORIDE 10 MEQ SR TABLET PO SCH ×2 (09:06→21:02)
[2020-03-27] MEDS: FUROSEMIDE 40 MG TAB PO SCH (09:06)
[2020-03-27] MEDS: rifAMPin 150MG CAPSULE PO SCH ×2 (09:06→21:02)
[2020-03-27] MEDS: HumaLOG INSULIN (NovoLOG) PER UNIT SC SCH ×4 (09:07→21:00)
[2020-03-27] MEDS: LEVEMIR (INSULIN DETEMIR) 1 UNITS/0.01ML SC SCH ×2 (09:07→21:00)
[2020-03-27 09:33] LABS: ERYTHROCYTE SEDIMENTATION RATE 53 mm/hr (0-30)
[2020-03-27 13:46] VITALS: BP 118/71
--- NOTE | 2020-03-27 14:56 | IPN ---
NEPHROLOGY PROGRESS NOTE DATE: 03/27/2020 SUBJECTIVE: Mrs. Cabello is seen this morning at her bedside. She is complaining of pain in her right hip. She denies any nausea or vomiting. She has no fever or chills and remains on intravenous Vancomycin and oral Rifampin for infection in her right hip prosthesis. PHYSICAL EXAMINATION: VITAL SIGNS: Temperature is 97.2 degrees Fahrenheit, heart rate 70 per minute and respiratory rate 20 per minute, blood pressure 118/70 mm of mercury and oxygen saturation is 98% on room air. INTAKE AND OUTPUT: Records are incomplete. HEENT: Her head is atraumatic. NECK: Supple and JVD not abnormally elevated. HEART: Regular. LUNGS: Diminished breath sounds on the right side. ABDOMEN: Soft, distended and ascites is present. There is no tenderness. EXTREMITIES: Without any cyanosis or clubbing. Bruise on her right knee is unchanged. Wound VAC dressing on right hip wound is present. NEUROLOGICAL: She is at her baseline mentation without any focal deficits. LABORATORY STUDIES: Today's labs show a WBC count of 8.7, hemoglobin 9.1 and hematocrit 28.9, platelets 252. Sodium 127, potassium 3.5, CO2 33, BUN 18 and creatinine 1.19, glucose and calcium 10.4. PROBLEMS: 1. Hypernatremia - sodium level is gradually improving. Her hyponatremia is related to cirrhosis, congestive heart failure and kidney disease. At present we will continue gentle diuresis and monitor her electrolytes on a daily basis. She also received hypotonic IV fluids during her surgical procedure which caused worsening of hyponatremia, however it is now gradually improving. 2. Hypokalemia the patient will continue with potassium supplement along with Spironolactone until her potassium level improves and then we will consider stopping of her potassium supplement. 3. Cirrhosis and ascites along with peripheral edema she had significant peripheral edema and also has a large right pleural effusion. She has multiorgan problems including congestive heart failure, chronic kidney disease, and cirrhosis of the liver with ascites. At present she is on Furosemide and Spironolactone because of her volume overload. She seems to have significant improvement and I am stopping her Furosemide at present. We will continue with Spironolactone 50 mg twice daily for now. 4. Hypercalcemia likely related to volume depletion with over diuresis and recent hip surgery. Furosemide is being stopped now and we will monitor her electrolytes along with calcium and sodium over the next few days. 5. Congestive heart failure and right pleural effusion - the patient was significantly volume overloaded, however has gradually and we will continue with gentle diuresis for now. 6. Anemia her anemia is gradually improving and does not need any urgent intervention. 7. Infection in right hip following surgery she had her hip prosthesis replaced and remains on antibiotics. Her Vancomycin level has been therapeutic or only slightly elevated. Today's level is 19 which is appropriate.
[2020-03-27 22:00] VITALS: BP 111/57
[2020-03-28] MEDS: SODIUM CHLORIDE 0.9% INJ 10 ML SYR IV SCH ×2 (05:02→16:57)
[2020-03-28 06:00] VITALS: BP 107/52
[2020-03-28] MEDS: HumaLOG INSULIN (NovoLOG) PER UNIT SC SCH ×4 (07:30→21:00)
[2020-03-28] MEDS: LACTULOSE 20 GM/30 ML SYRUP UD PO SCH ×3 (09:00→21:58)
[2020-03-28 09:08] LABS: BASO # 0.1 10^3/uL (0.0-0.2); EOS # 0.1 10^3/uL (0.0-0.5); EOS % 0.8 % (0.0-3.0); HEMATOCRIT 28.8 % (36.0-47.0); HEMOGLOBIN 8.8 g/dl (12.0-15.5); LYMPH # 0.7 10^3/uL (1.5-5.0); LYMPH % 7.4 % (24.0-44.0); MEAN CORPUSCULAR HEMOGLOBIN 31.9 pg (27.0-33.0); MEAN CORPUSCULAR HGB CONC 30.6 g/dl (32.0-36.5); MEAN CORPUSCULAR VOLUME 104.3 fl (80.0-96.0); MONO # 1.3 10^3/uL (0.0-0.8); MONO % 13.8 % (0.0-5.0); NEUTROPHILS # 7.2 10^3/uL (1.5-8.5); NEUTROPHILS % 76.3 % (36.0-66.0); PLATELET COUNT, AUTOMATED 248 10^3/uL (150-450); RED BLOOD COUNT 2.76 10^6/uL (4.00-5.40); WHITE BLOOD COUNT 9.4 10^3/uL (4.0-10.0)
[2020-03-28 09:29] LABS: C REACTIVE PROTEIN QUANTITATIV 3.27 MG/DL (0.00-0.30); CALCIUM LEVEL 9.8 MG/DL (8.8-10.2); CREATININE FOR GFR 1.1 MG/DL (0.55-1.30); GLOMERULAR FILTRATION RATE 50.4 (>32); POTASSIUM SERUM 4.1 MEQ/L (3.5-5.1); VANCOMYCIN LEVEL TROUGH 19.2 UG/ML (10.0-20.0)
[2020-03-28] MEDS: rifAMPin 150MG CAPSULE PO SCH ×2 (09:43→21:23)
[2020-03-28] MEDS: OMEPRAZOLE 20 MG CAP PO SCH (09:43)
[2020-03-28] MEDS: POTASSIUM CHLORIDE 10 MEQ SR TABLET PO SCH (09:43)
[2020-03-28] MEDS: LACTOBACILLUS ACIDOPHILUS CAP (BACID) PO SCH ×4 (09:43→21:22)
[2020-03-28] MEDS: SPIRONOLACTONE 50 MG TAB PO SCH ×2 (09:43→16:57)
[2020-03-28] MEDS: ASPIRIN 81 MG ENTERIC TAB PO SCH ×2 (09:43→21:22)
[2020-03-28] MEDS: MIDODRINE 5 MG TAB PO SCH ×3 (09:43→16:57)
[2020-03-28] MEDS: VANCOMYCIN HCL 1,000 MG, VIAL MATE ADAPTER 1 EACH in D5W 250 ML IV SCH (09:44)
[2020-03-28] MEDS: LEVEMIR (INSULIN DETEMIR) 1 UNITS/0.01ML SC SCH ×2 (09:45→21:23)
[2020-03-28 10:16] LABS: ERYTHROCYTE SEDIMENTATION RATE 50 mm/hr (0-30)
--- NOTE | 2020-03-28 10:22 | IPN ---
PROGRESS NOTE DATE: 03/28/2020 SUBJECTIVE: Ada looks better today. She feels better as well. She is a little bit stronger, she is not short of breath. It is the best she has looked in the few days I have been taking care of her. No chest pain, shortness of breath, fever or chills. PHYSICAL EXAMINATION: VITAL SIGNS: Blood pressure 107/50, pulse 71, afebrile. GENERAL: She is alert, conversant, in no distress. LUNGS: Clear. HEART: Regular rate and rhythm. There is a 1/6 systolic ejection fraction. ABDOMEN: Sof, nontender. No masses. EXTREMITIES: Trace peripheral edema. Wound-Vac on right hip. IMPRESSION: 1. Infected right hip prosthesis, on IV antibiotics with Vancomycin and Rifampin. On Monday we need to put in a formal consultation for Infectious Disease. 2. Decompensated congestive heart failure, her diuretic dose was adjusted by Nephrology, I appreciate their input. Spironolactone has been added. 3. Hypokalemia, supplemental potassium has been given. She also has spironolactone which eventually should help. 4. Congestive heart failure, right pleural effusion. She has not had a net diuresis over the last few days. 5. Lung mass, apparently lung mass on CT scan. Pulmonary is consulted but did not feel she needed inpatient attention. This needs to be addressed on an outpatient follow-up. 6. Type 2 diabetes. Blood sugars generally in the 100-200 range.
--- NOTE | 2020-03-28 11:20 | IPN ---
PROGRESS NOTE DATE: 03/28/2020 SUBJECTIVE: The patient is seen and examined this morning at the bedside. She complains of unchanged and stable shortness of breath. She denies any pain, nausea, vomiting or diarrhea. PHYSICAL EXAMINATION: VITAL SIGNS: Temperature is 97.9, pulse 71, respiratory rate is 20, blood pressure is 107/52, saturating 94 to 98% on room air. INTAKE AND OUTPUT: Intake yesterday was 1270, there were five voids recorded yesterday. Weight on the bed scale today is not recorded. GENERAL: The patient is seen awake, alert, elderly female, frail, lying down, head of the bed elevated. HEENT: Extraocular muscles are intact. Tongue is moist. NECK: Supple. Neck veins are not elevated. HEART: Heart sounds are regular. There is trace to 1+ leg edema that is bilateral. There is a faint systolic murmur. ABDOMEN: Soft and nontender to palpation. There are bowel sounds. EXTREMITIES: Compression stockings with trace to 1+ peripheral edema. There is ecchymosis over the right knee. There is a Wound-Vac on the right hip. NEUROLOGIC: She is at baseline mentation, interactive, conversational and cooperative with physical exam. LUNGS: Symmetric air entry bilaterally. She is comfortable on room air. No crackle or rhonchus. LABORATORY DATA: Sodium 128, potassium 4.1, bicarbonate 32, BUN 16, creatinine 1.1. Hemoglobin 8.8, platelets 248,000. Vancomycin trough 19. INPATIENT MEDICATIONS: Vancomycin 1 gram IV daily, Tylenol p.r.n., aspirin 81 mg p.o. b.i.d., Senokot p.r.n., Heparin insulin, Bacid with meal, lactulose 30 ml three times a day, Midodrine 10 mg three times a day, omeprazole 20 mg p.o. daily, Zofran p.r.n., oxycodone p.r.n., potassium 10 mEq p.o. twice daily, Rifampin 300 mg p.o. twice daily, spironolactone 50 mg p.o. twice daily. PROBLEMS: 1. Decompensated diastolic congestive heart failure. An echocardiogram from last month noted. The patient is mildly hypervolemic on exam. However, she is respiring comfortably on room air. I would continue at this time with spironolactone twice daily in view of her cirrhosis and congestive heart failure. She will also receive Lasix on an intermittent basis. 2. Hypokalemia. She is receiving spironolactone 50 mg twice daily and I am stopping the potassium supplement as her blood potassium levels are now greater than 4. 3. Cirrhosis with ascites. Her albumin levels are chronically low. She has third spacing of fluid. She has chronic hyponatremia secondary to cirrhosis and congestive heart failure. She does not wish to follow fluid restriction. She is receiving spironolactone and she is also on Midodrine for chronic hypotension associated with her cirrhosis. She is encouraged for dietary protein intake. 4. Hypervolemic hyponatremia. It is multifactorial in etiology and due to cirrhosis and congestive heart failure. Continue diuretic. Her sodium levels are slowly improving. 5. Anemia. She did receive IV iron last month and I will get repeat iron levels. 6. Infection in right hip following surgery. She had hip prosthesis replaced, she remains on Vancomycin. Her trough level is therapeutic. She has a Wound-Vac. There is no leukocytosis nor fever.
[2020-03-28] MEDS: FUROSEMIDE 20 MG TAB PO SCH (12:44)
[2020-03-28 14:00] VITALS: BP 115/63
[2020-03-28 22:00] VITALS: BP 114/57
[2020-03-29] MEDS: SODIUM CHLORIDE 0.9% INJ 10 ML SYR IV SCH ×2 (05:16→17:34)
[2020-03-29 06:00] VITALS: BP 103/58
[2020-03-29] MEDS: HumaLOG INSULIN (NovoLOG) PER UNIT SC SCH ×4 (07:30→21:00)
[2020-03-29 08:24] LABS: CALCIUM LEVEL 9.6 MG/DL (8.8-10.2); CREATININE FOR GFR 1.14 MG/DL (0.55-1.30); GLOMERULAR FILTRATION RATE 48.3 (>32); POTASSIUM SERUM 4.1 MEQ/L (3.5-5.1)
[2020-03-29 08:26] LABS: C REACTIVE PROTEIN QUANTITATIV 3.14 MG/DL (0.00-0.30); PERCENT SATURATION 16.4 % (13.2-45.0)
[2020-03-29] MEDS: LEVEMIR (INSULIN DETEMIR) 1 UNITS/0.01ML SC SCH ×2 (08:29→21:40)
[2020-03-29] MEDS: ASPIRIN 81 MG ENTERIC TAB PO SCH ×2 (08:40→21:39)
[2020-03-29] MEDS: OMEPRAZOLE 20 MG CAP PO SCH (08:40)
[2020-03-29] MEDS: SPIRONOLACTONE 50 MG TAB PO SCH ×2 (08:40→17:33)
[2020-03-29] MEDS: FUROSEMIDE 20 MG TAB PO SCH (08:40)
[2020-03-29] MEDS: MIDODRINE 5 MG TAB PO SCH ×3 (08:40→17:33)
[2020-03-29] MEDS: LACTOBACILLUS ACIDOPHILUS CAP (BACID) PO SCH ×4 (08:40→21:39)
[2020-03-29] MEDS: LACTULOSE 20 GM/30 ML SYRUP UD PO SCH ×3 (08:40→21:00)
[2020-03-29] MEDS: rifAMPin 150MG CAPSULE PO SCH ×2 (08:40→21:39)
[2020-03-29] MEDS: VANCOMYCIN HCL 1,000 MG, VIAL MATE ADAPTER 1 EACH in D5W 250 ML IV SCH (08:41)
--- NOTE | 2020-03-29 11:48 | REP ---
INDICATION: abnl exam COMPARISON: 03/20/2020 TECHNIQUE: AP and lateral. FINDINGS: Right-sided pleuroparenchymal changes including large right pleural effusion and underlying areas of consolidation are essentially unchanged. Visualized portions of the mediastinum and cardiac silhouette are stable and within normal limits. Left hemithorax is clear. Right PICC line identified with tip in the subclavian vein. IMPRESSION: Stable right-sided pleuroparenchymal changes including large effusion and underlying areas of consolidation. <Electronically signed by Glenn Mohr > 03/29/20 [id number]
--- NOTE | 2020-03-29 12:56 | REP ---
INDICATION: effusion COMPARISON: 03/22/2020 TECHNIQUE: Axial noncontrast images from the thoracic inlet to the upper abdomen with coronal and sagittal reformations. This CT examination was performed using the following dose reduction techniques: Automated exposure control, adjustment of mA and/or kv according to the patient's size, and use of iterative reconstruction technique. FINDINGS: Right-sided pleuroparenchymal changes including moderate pleural effusion, pleural thickening, and areas of consolidation are unchanged. Associated right-sided volume loss causes ipsilateral mediastinal shift and hyperexpansion of the left hemithorax which remains stable. Right-sided PICC line extends into the subclavian vein. Limited evaluation of the upper abdomen demonstrates cirrhosis with portal hypertension, splenomegaly, and ascites. IMPRESSION: 1. Right-sided pleuroparenchymal changes including moderate effusion, areas of consolidation/partial collapse, and pleural thickening with associated volume loss and ipsilateral mediastinal shift remains stable. 2. No new acute process appreciated. <Electronically signed by Glenn Mohr > 03/29/20 [id number]
[2020-03-29 14:00] VITALS: BP 115/62
--- NOTE | 2020-03-29 18:06 | IPN ---
PROGRESS NOTE DATE: 03/29/2019 SUBJECTIVE: Nursing staff is concerned about Lindsay's pulmonary status. She has developed some decreased breath sounds on the right side. She has a partial loculated right pleural effusion on the CT from admission. Overall she actually feels better, says she slept well, another day where she feels she is stronger than the day before. PHYSICAL EXAM: Vital signs: She has been afebrile, blood pressure 103/58, pulse 77. General appearance: Alert, conversant, no distress. Lungs: Decreased breath sounds on the right compared to the left. Heart: Regular rate and rhythm. Abdomen: Soft, nontender. Extremities: No peripheral edema. LABS: Sed rate is 42, sodium 129, potassium 4.1, BUN 17, creatinine 1.1, glucose 91. Iron studies show low TIBC, normal percent saturation consistent with anemia of chronic disease. IMPRESSION/PLAN: 1. Abnormal pulmonary exam. Chest x-ray ordered. Follow up based upon results of this. 2. The rest of her medical problems as outlined in yesterday's note are stable and she seems to be making slow progress.
[2020-03-29] MEDS: PERCOCET 5MG/325MG TAB PO PRN (21:41)
[2020-03-29 22:00] VITALS: BP 114/61
[2020-03-30] MEDS: SODIUM CHLORIDE 0.9% INJ 10 ML SYR IV SCH ×2 (05:24→18:19)
[2020-03-30 05:54] LABS: HEMATOCRIT 27.6 % (36.0-47.0); HEMOGLOBIN 8.5 g/dl (12.0-15.5); MEAN CORPUSCULAR HEMOGLOBIN 31.8 pg (27.0-33.0); MEAN CORPUSCULAR HGB CONC 30.8 g/dl (32.0-36.5); MEAN CORPUSCULAR VOLUME 103.4 fl (80.0-96.0); PLATELET COUNT, AUTOMATED 235 10^3/uL (150-450); RED BLOOD COUNT 2.67 10^6/uL (4.00-5.40); WHITE BLOOD COUNT 7.6 10^3/uL (4.0-10.0)
[2020-03-30 06:00] VITALS: BP 110/54
[2020-03-30 06:24] LABS: C REACTIVE PROTEIN QUANTITATIV 2.78 MG/DL (0.00-0.30); CALCIUM LEVEL 9.4 MG/DL (8.8-10.2); CREATININE FOR GFR 1.11 MG/DL (0.55-1.30); GLOMERULAR FILTRATION RATE 49.9 (>32); POTASSIUM SERUM 3.9 MEQ/L (3.5-5.1)
[2020-03-30 07:09] LABS: ERYTHROCYTE SEDIMENTATION RATE 46 mm/hr (0-30)
[2020-03-30] MEDS: HumaLOG INSULIN (NovoLOG) PER UNIT SC SCH ×4 (07:30→21:00)
--- NOTE | 2020-03-30 08:18 | IPN ---
PROGRESS NOTE DATE: 03/29/2020 SUBJECTIVE: Patient seen and examined this morning at the bedside. She denies any complaints. Reports her hip pain is controlled. Denies shortness of breath at rest. OBJECTIVE: VITAL SIGNS: Temperature 97.5, pulse 77, respiratory rate 20, blood pressure 103/58, saturating 95% to 97% on room air. INTAKE AND OUTPUT: Intake yesterday was 1560. There were more than 10 voids recorded. Weight on the bed scale today is not recorded. GENERAL: The patient is seen awake and alert, lying in the bed. Head of the bed is only elevated about 15 degrees. She is comfortable, frail, and in no distress. HEENT: Extraocular muscles are intact. Tongue is moist. NECK: Supple. Jugular veins are not elevated. HEART: Sounds are regular. There is trace to 1+ leg edema bilaterally, which is decreased from prior and is most noticeable at the hip and sacrum independent areas. There is a systolic murmur. ABDOMEN: Soft and nontender. There are bowel sounds. EXTREMITIES: Show no clubbing or cyanosis. There is a wound VAC on the right hip. There is ecchymosis over the right knee. There is some dependent edema in the thighs and sacrum. NEUROLOGIC: She is at baseline mentation, interactive, and conversational. LUNGS: Symmetric air entry bilaterally. No crackles or rales. Comfortable on room air. LABORATORY DATA: Hemoglobin 8.8. Iron 34, TSAT 16%, sodium 139, bicarbonate 31, creatinine 1.1. IMAGING: Chest x-ray stable right-sided pleural parenchymal changes including large effusion and underlying areas of consolidation. INPATIENT MEDICATIONS: Patient continues on the same medications without changes noted over the past 24 hours. PROBLEMS: 1. Decompensated diastolic congestive heart failure and chronic right pleural effusion. The patient is mildly hypervolemic on exam and has chronic hypervolemic hyponatremia. She continues on Spironolactone 50 mg twice daily along with Lasix 20 mg daily. Over the course of her lengthy hospitalization (one month), her volume status has improved. Continue current regimen. 2. Cirrhosis with ascites. Albumin levels are chronically low with third-spacing of fluid. She has chronic hyponatremia secondary to cirrhosis and congestive heart failure. She is on midodrine and lactulose, and she is on combination diuretics of Lasix and Spironolactone. 3. Anemia related to iron deficiency and chronic inflammatory state. She did receive Venofer last month, but iron stores are still inadequate. I would give her 300 mg of Venofer further after clearing it with infectious disease as she does have an infected right hip prosthesis. 4. Chronic right pleural effusion. Has previously been evaluated by CT surgery, who did not feel that the patient would benefit from thoracentesis in view of multiple underlying conditions. Will continue current diuretic regimen. 5. Hypervolemic hyponatremia. Serum sodium has come up from 124 to 129. Continue Lasix and Spironolactone. Her sodium levels are slowly improving. 6. Hypokalemia. Potassium levels are stable with Spironolactone and she is off of potassium supplementation. 7. 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 Vancomycin levels have been appropriate. I will clear with infectious disease prior to giving her IV iron for her anemia.
[2020-03-30] MEDS ORDERED: IRON SUCROSE 100MG 5ML VIAL (J1756 PER 1MG) IV SCH (09:00)
[2020-03-30] MEDS: LACTULOSE 20 GM/30 ML SYRUP UD PO SCH ×3 (10:15→21:00)
[2020-03-30] MEDS: MIDODRINE 5 MG TAB PO SCH ×3 (10:16→16:00)
[2020-03-30] MEDS: ASPIRIN 81 MG ENTERIC TAB PO SCH ×2 (10:16→21:37)
[2020-03-30] MEDS: FUROSEMIDE 20 MG TAB PO SCH (10:16)
[2020-03-30] MEDS: rifAMPin 150MG CAPSULE PO SCH ×2 (10:16→21:37)
[2020-03-30] MEDS: OMEPRAZOLE 20 MG CAP PO SCH (10:17)
[2020-03-30] MEDS: PERCOCET 5MG/325MG TAB PO PRN ×2 (10:17→18:22)
[2020-03-30] MEDS: SPIRONOLACTONE 50 MG TAB PO SCH ×2 (10:17→18:19)
[2020-03-30] MEDS: LACTOBACILLUS ACIDOPHILUS CAP (BACID) PO SCH ×4 (10:20→21:37)
[2020-03-30] MEDS: LEVEMIR (INSULIN DETEMIR) 1 UNITS/0.01ML SC SCH ×2 (10:22→21:38)
--- NOTE | 2020-03-30 10:30 | IPN ---
PROGRESS NOTE DATE: 03/30/2020 SUBJECTIVE: Ada is stable. No change from yesterday. Nursing staff is concerned about the pleural effusion. We worked this up more yesterday, did a chest x-ray and then followed with a CT of the chest that showed no change in the pleural effusion. This was discussed with Dr. Garcia (see below). OBJECTIVE: VITAL SIGNS: Afebrile. Vital signs stable. GENERAL APPEARANCE: Alert and conversant. LUNGS: Clear. HEART: Regular rate and rhythm. ABDOMEN: Soft and nontender. EXTREMITIES: She has a wound VAC on. There is trace to 1+ peripheral edema. The wound VAC is on the right hip. IMAGING: CT scan showed right pleural effusion, unchanged. IMPRESSION: 1. Right pleural effusion. This is chronic. I discussed with Dr. Garcia who feels that this has been present for a while, this lung is probably encased, and there is no benefit for intervention at this point. 2. Decompensated diastolic congestive heart failure. Volume status is satisfactory on the current regimen. 3. Cirrhosis with ascites and chronic hyponatremia. We reduced the frequency of lactulose since she was having uncontrolled loose stool that is better now. Mental status is satisfactory and she does not seem encephalopathic. 4. 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 5. Hyponatremia secondary to cirrhosis. Sodium levels are stable and she is asymptomatic from this.
--- NOTE | 2020-03-30 12:34 | IPN ---
PROGRESS NOTE DATE: 03/30/2020 SUBJECTIVE: Ada is seen and examined this morning at the bedside. She reports frequency of bowel movements associated with Lactulose. She otherwise denies any complaints. She denies shortness of breath at rest. She reports pain is tolerable. PHYSICAL EXAMINATION: VITAL SIGNS: Temperature 97.0 pulse 70, respiratory rate is 20, blood pressure is 110/54, saturating 96% on room air. INTAKE AND OUTPUT: Intake yesterday was 1260. Urine output was recorded as one incontinent void along with 80 ml, there were four bowel movements. Weight on the bed scale today is not recorded. GENERAL: Patient is seen lying down in bed, the head of the bed is only elevated 10 degrees. Elderly female, frail, awake, alert and in no apparent distress. HEENT: Extraocular muscles are intact. Tongue is moist. NECK: Supple. Jugular veins are not elevated. HEART: Heart sounds are regular. There is trace edema which is most notable in the dependent areas. There is a systolic murmur. The compression stockings are actually loose on her legs. LUNGS: Diminished air entry on the right, comfortable on room air. No tachypnea. ABDOMEN: Soft and nontender. There are bowel sounds. EXTREMITIES: No clubbing or cyanosis. There is a Wound-Vac on the right hip. There is ecchymosis over the right knee. There is some dependent edema. NEUROLOGIC: She is at baseline mentation, interactive and conversational. LABORATORY DATA: White count is 7.6, hemoglobin is 8.5, platelets are 235,000, sodium 128, potassium 3.9, bicarbonate 30, BUN 16, creatinine 1.1. CRP 2.7. INPATIENT MEDICATIONS: Reviewed by myself. Vancomycin dose was decreased to 750 mg daily. Her remainder of medications are unchanged from prior problems. PROBLEMS: 1. Decompensated diastolic congestive heart failure. Patient's volume status is mildly hypervolemic and is stable. She has a chronic right pleural effusion which is felt to not require drainage. She has chronic and stable hypervolemic hyponatremia. She continues on Spironolactone and Lasix. 2. Cirrhosis with ascites. Albumin levels are chronically low with third spacing of fluid. She has chronic hyponatremia secondary to both congestive heart failure and cirrhosis. She continues on Lactulose. There are no signs of encephalopathy. She is on Midodrine and blood pressures are acceptable and she continues on combination diuretic Lasix and Spironolactone. 3. Anemia related to iron deficiency and chronic inflammatory state. She received Venofer last month, iron stores are still inadequate. We will re-dose Venofer after clearing with Dr. Peralta this week as she does have an infected right hip. 4. Chronic right pleural effusion, has previously been evaluated by CT Surgery and recommendation was the patient would not benefit from thoracentesis in view of multiple underlying chronic conditions and chronicity of the condition. Will continue diuretic regimen. 5. Hypervolemic hyponatremia. It is multifactorial due to cirrhosis and CHF, continue Lasix and spironolactone. 6. 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 Manage as per primary team. I see that her Vancomycin dose was adjusted and levels have been appropriate.
[2020-03-30] MEDS: VANCOMYCIN HCL 750 MG, VIAL MATE ADAPTER 1 EACH in D5W 250 ML IV SCH (13:23)
[2020-03-30 14:00] VITALS: BP 111/64
[2020-03-30 22:00] VITALS: BP 110/59
[2020-03-31 06:00] VITALS: BP 111/64
[2020-03-31] MEDS: SODIUM CHLORIDE 0.9% INJ 10 ML SYR IV SCH ×2 (06:04→17:52)
[2020-03-31 06:21] LABS: HEMATOCRIT 28.9 % (36.0-47.0); HEMOGLOBIN 8.7 g/dl (12.0-15.5); MEAN CORPUSCULAR HEMOGLOBIN 31.6 pg (27.0-33.0); MEAN CORPUSCULAR HGB CONC 30.1 g/dl (32.0-36.5); MEAN CORPUSCULAR VOLUME 105.1 fl (80.0-96.0); PLATELET COUNT, AUTOMATED 191 10^3/uL (150-450); RED BLOOD COUNT 2.75 10^6/uL (4.00-5.40)
[2020-03-31 06:52] LABS: C REACTIVE PROTEIN QUANTITATIV 3.03 MG/DL (0.00-0.30); CALCIUM LEVEL 10.1 MG/DL (8.8-10.2); CREATININE FOR GFR 1.03 MG/DL (0.55-1.30); GLOMERULAR FILTRATION RATE 54.3 (>32); POTASSIUM SERUM 4.1 MEQ/L (3.5-5.1)
[2020-03-31 06:53] LABS: ERYTHROCYTE SEDIMENTATION RATE 26 mm/hr (0-30)
[2020-03-31] MEDS: HumaLOG INSULIN (NovoLOG) PER UNIT SC SCH ×4 (07:30→22:32)
[2020-03-31] MEDS: SPIRONOLACTONE 50 MG TAB PO SCH ×2 (08:54→17:51)
[2020-03-31] MEDS: LACTULOSE 20 GM/30 ML SYRUP UD PO SCH ×2 (08:54→16:45)
[2020-03-31] MEDS: LACTOBACILLUS ACIDOPHILUS CAP (BACID) PO SCH ×4 (08:55→22:43)
[2020-03-31] MEDS: OMEPRAZOLE 20 MG CAP PO SCH (08:55)
[2020-03-31] MEDS: ASPIRIN 81 MG ENTERIC TAB PO SCH ×2 (08:55→22:43)
[2020-03-31] MEDS: rifAMPin 150MG CAPSULE PO SCH ×2 (08:55→22:43)
[2020-03-31] MEDS: FUROSEMIDE 20 MG TAB PO SCH ×2 (08:56→17:51)
[2020-03-31] MEDS: PERCOCET 5MG/325MG TAB PO PRN (08:56)
[2020-03-31] MEDS: MIDODRINE 5 MG TAB PO SCH ×3 (08:56→16:00)
[2020-03-31] MEDS: LEVEMIR (INSULIN DETEMIR) 1 UNITS/0.01ML SC SCH ×2 (08:57→22:33)
--- NOTE | 2020-03-31 09:44 | IPN ---
PROGRESS NOTE DATE: 03/31/2020 SUBJECTIVE: Ada is seen on [address] Castelan's input from nephrology. She is making slow progress. Her congestive heart failure seems stabilized. She denies any chest pain, shortness of breath, fever, or chills. OBJECTIVE: VITAL SIGNS: Afebrile. Vital signs stable with blood pressure 111/64. GENERAL APPEARANCE: Alert, conversant. LUNGS: Clear. HEART: Regular rhythm with 1/6 systolic ejection murmur. ABDOMEN: Soft and nontender with no masses. Mild amount of ascites. EXTREMITIES: Trace peripheral edema. Wound VAC on the right hip. LABORATORY DATA: White count 7, hemoglobin 8.7, platelets 191,000. Sodium 127, potassium 4.1, BUN 14, creatinine 1.0. CRP stable at 3. Vancomycin level was a little high yesterday and dose has been adjusted. IMPRESSION: 1. Decompensated diastolic congestive heart failure. Volume status is satisfactory on current regimen. 2. Cirrhosis with ascites and has chronic hyponatremia. Mental status is stable. She is not encephalopathic. We reduced her lactulose due to uncontrolled loose stool. Her ascites seem stable as well. 3. 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 The patient night be appropriate for rehab towards the end of the week. I think her volume status is stabilizing at this time.
[2020-03-31] MEDS: VANCOMYCIN HCL 750 MG, VIAL MATE ADAPTER 1 EACH in D5W 250 ML IV SCH (12:20)
--- NOTE | 2020-03-31 20:31 | CR ---
CONSULTATION DATE: 03/31/2020 Asked to consult by Dr. Julius Millard for evaluation of right hip prosthetic joint infection. HISTORY OF PRESENT ILLNESS: Mrs. Cabello is an 84-year-old female who was admitted to the hospital in early February after she was transferred from [facility] for a right hip fracture. The patient is known to have liver cirrhosis, hypertension, hyperlipidemia, and congestive heart failure. The patient had a right hemiarthroplasty by Dr. Millard and she developed a seroma which got infected. She had cultures done on 03/20/2020 from the seroma that were positive for Staphylococcus epidermidis. Patient was taken to the operating room and had an incision and drainage, irrigation and debridement with exchange arthroplasty and removal of cerclage cable and insertion of antibiotic beads. The estimated blood loss was 200 mL. Cultures were obtained and were positive for Staphylococcus epidermidis. The patient has been on IV vancomycin and Rifampin and doing well. She has had no nausea, vomiting, or diarrhea, no fever or chills. She has a wound vacuum assisted closure (VAC) in place that will be changed tomorrow so today I was not able to see the wound. She still has some fluid overload and is being diuresed. PAST MEDICAL HISTORY: Significant for chronic diastolic heart failure, pulmonary hypertension, liver cirrhosis, coronary artery disease, hypertension, asthma, type 2 diabetes, bradycardia requiring pacemaker insertion, gastroesophageal reflux disease, hepatic encephalopathy, dyslipidemia. PAST SURGICAL HISTORY: Right hip hemiarthroplasty with complication of seroma and Staphylococcus epidermidis infection status post revision on 03/21/2020, thoracentesis in 2018, hysterectomy, appendectomy, cholecystectomy, tonsillectomy. SOCIAL HISTORY: She is a nonsmoker, denies alcohol use. She was in rehabilitation in [facility]. ALLERGIES: MEPERIDINE. MEDICATIONS; - spironolactone 50 mg by mouth twice a day - probiotics one tablet by mouth with meals - lactulose 30 mg by mouth three times a day - aspirin 81 mg by mouth twice a day - insulin sliding scale - furosemide 20 mg by mouth twice a day - Levemir 10 units subcutaneous twice a day - Percocet one tablet by mouth every 4 hours as needed - omeprazole 20 mg by mouth daily - midodrine 10 mg by mouth three times a day - rifampin 300 mg by mouth twice a day started on 03/23/2020 - vancomycin 750 mg IV every 24 hours LABORATORY DATA: White count 7, hemoglobin 8.7, hematocrit 28.9, platelets 191, ESR 26 down from 63, sodium 127, potassium 4.1, chloride 94, bicarbonate 27, BUN 14, creatinine 1.03, glucose 112, calcium 10.9, CRP 3.03 down from 9.1. Wound culture of the right hip, three, were positive for Staphylococcus epidermidis, resistant to oxacillin and erythromycin, sensitive to rifampin. Blood cultures, two sets, done on 03/21/2020 were negative. PHYSICAL EXAMINATION: She is a pleasant, elderly female in no acute distress. Vital signs are stable. Heart: Normal S1, S2 with a systolic ejection murmur 3/6 heard at the right upper sternal border and radiating throughout the pericardium. Lungs: Diminished at the bases. Abdomen: Soft, nontender, no hepatosplenomegaly, mild ascites. Extremities: Trace edema. Right hip has edema with a wound VAC in place, no erythema around the wound VAC. General appearance: Healthy, elderly female in no acute distress. Neurologic: Exam alert, oriented, times three. Motor strength: Patient is able to move both lower extremities, right with pain but she is able to flex her hip at least 90 degrees and her knee as well. Left leg normal range of motion. Upper extremities normal. IMAGING STUDIES: Chest CT done on 03/29/2020 showed moderate pleural effusion with pleural thickening and consolidation on the right side with mediastinal shift and hyperextension of the left hemithorax, right-sided peripherally inserted central catheter (PICC) line in place. Hip x-ray done on 03/20/2020 shows satisfactory hip replacement with normal positioning and alignment. Liver ultrasound done on 02/25/2020 shows a nodular contour consistent with cirrhosis, 3.4 x 3.9 x 3.6 lesion in the right hepatic lobe, cholecystectomy, no fluid collection. MRI of the abdomen was recommended to rule out malignancy. IMPRESSION: This is an 84-year-old female with a history of liver cirrhosis, congestive heart failure who was admitted with a hip fracture, had a hemiarthroplasty done early February was complicated by postoperative joint infection with Staphylococcus epidermidis. The patient needed revision with debridement and antibiotic spacer placed. She is on vancomycin at 750 mg every 24 hours with rifampin 300 mg by mouth twice a day. PLAN : The patient has peripherally inserted central catheter (PICC) line in the right arm for IV antibiotics and she will require antibiotics for a total of at least 6 weeks. End of IV antibiotic therapy would be 05/02/2020. Patient needs to be monitored with a complete blood count (CBC), complete metabolic panel (CMP) to monitor for liver toxicity from rifampin and renal issues with vancomycin. C- reactive protein (CRP), erythrocyte sedimentation rate (ESR) at least once weekly with a vancomycin trough . Patient has been incontinent of bowel movement and has at least 5-7 bowel movements a day. Lactulose was decreased to twice a day. MTDD
[2020-03-31 22:00] VITALS: BP 106/53
[2020-03-31] MEDS: ACETAMINOPHEN TAB 650MG DOSE (2X325MG) PO PRN (22:43)
[2020-04-01] MEDS: SODIUM CHLORIDE 0.9% INJ 10 ML SYR IV SCH ×2 (05:01→17:51)
[2020-04-01 06:00] VITALS: BP 106/67
[2020-04-01 07:17] LABS: HEMATOCRIT 29.1 % (36.0-47.0); HEMOGLOBIN 9.2 g/dl (12.0-15.5); MEAN CORPUSCULAR HEMOGLOBIN 32.3 pg (27.0-33.0); MEAN CORPUSCULAR HGB CONC 31.6 g/dl (32.0-36.5); MEAN CORPUSCULAR VOLUME 102.1 fl (80.0-96.0); PLATELET COUNT, AUTOMATED 241 10^3/uL (150-450); RED BLOOD COUNT 2.85 10^6/uL (4.00-5.40)
[2020-04-01 07:54] LABS: CALCIUM LEVEL 9.7 MG/DL (8.8-10.2); GLOMERULAR FILTRATION RATE 56.2 (>32); POTASSIUM SERUM 3.8 MEQ/L (3.5-5.1)
[2020-04-01] MEDS: rifAMPin 150MG CAPSULE PO SCH ×2 (09:00→20:58)
[2020-04-01] MEDS: OMEPRAZOLE 20 MG CAP PO SCH (09:01)
[2020-04-01] MEDS: LACTULOSE 20 GM/30 ML SYRUP UD PO SCH ×2 (09:01→20:58)
[2020-04-01] MEDS: SPIRONOLACTONE 50 MG TAB PO SCH ×2 (09:02→16:51)
[2020-04-01] MEDS: ASPIRIN 81 MG ENTERIC TAB PO SCH ×2 (09:02→20:57)
[2020-04-01] MEDS: FUROSEMIDE 20 MG TAB PO SCH ×2 (09:02→16:52)
[2020-04-01] MEDS: LACTOBACILLUS ACIDOPHILUS CAP (BACID) PO SCH ×4 (09:02→20:57)
[2020-04-01] MEDS: MIDODRINE 5 MG TAB PO SCH ×3 (09:02→16:51)
[2020-04-01] MEDS: LEVEMIR (INSULIN DETEMIR) 1 UNITS/0.01ML SC SCH ×2 (09:03→21:00)
[2020-04-01] MEDS: HumaLOG INSULIN (NovoLOG) PER UNIT SC SCH ×4 (09:03→21:00)
--- NOTE | 2020-04-01 11:11 | IPN ---
PROGRESS NOTE DATE: 04/01/2019 SUBJECTIVE: Ada continues to slowly recover. She is stable today. Her blood pressure is good at 106/67. She was seen by Dr. Peralta from infectious disease yesterday for her infected right hip hemiarthroplasty. She recommends PICC line insertion in the right arm, six weeks of antibiotics with IV vancomycin ending on 05/02/2020, and rifampin continued until 05/02/2020, with CBC, CMP, C-reactive protein, and sed rate weekly. OBJECTIVE: VITAL SIGNS: Afebrile. Stable. LUNGS: Clear. HEART: Regular rhythm with 1/6 systolic ejection murmur. ABDOMEN: Soft and nontender with no masses. EXTREMITIES: Trace peripheral edema. Wound VAC on the right hip. LABORATORY DATA: White count 7, hemoglobin 9.2, platelets 241,000. Sodium 139, potassium 3.8, BUN 12, creatinine 1.0, glucose 155. Blood sugars in the 100 to 200 range. IMPRESSION: 1. Infected right hip hemiarthroplasty with Staphylococcus epidermidis. Antibiotic instructions per Dr. Peralta, six weeks of rifampin and vancomycin to finish on 05/02/2020. 2. Diabetes. I will increase her basal insulin. Continue sliding scale with coverage. The rest of her medical problems are stable and she will be put on SNF level of care.
[2020-04-01] MEDS: VANCOMYCIN HCL 750 MG, VIAL MATE ADAPTER 1 EACH in D5W 250 ML IV SCH (12:22)
[2020-04-01] MEDS: PERCOCET 5MG/325MG TAB PO PRN (12:32)
--- NOTE | 2020-04-01 12:35 | IPN ---
PROGRESS NOTE DATE: 04/01/2020 SUBJECTIVE: Ada is seen and examined this morning at the bedside working with Physical Therapy, sitting at the edge of the bed with no overnight complaints. Denies shortness of breath at rest and denies dyspnea with mild exertion. PHYSICAL EXAMINATION: VITAL SIGNS: Temperature 97.9, pulse 71, respiratory rate is 18, blood pressure 106/67, saturating 99% on room air. INTAKE AND OUTPUT: Intake yesterday was 720, urine output was 940. There were two bowel movements. Weight on the bed scale today is not recorded. GENERAL: The patient is seen sitting up on the edge of the bed, elderly female in no apparent distress. Legs are dangling. HEENT: Extraocular muscles are intact. Tongue is moist. NECK: Supple. Jugular veins are not elevated while she is sitting upright. HEART: Heart sounds are regular. S1 and S2. There is a systolic murmur. LUNGS: Clear to auscultation with diminished breath sounds on the right. ABDOMEN: Soft and nontender. EXTREMITIES: Legs show only trace edema. SKIN: Scattered bruising. NEUROLOGIC: Oriented at baseline mentation. Cooperative with physical exam and follows commands. LABORATORY DATA: White count 7.0, hemoglobin 9.2, platelets 241,000. Sodium 129, potassium 3.8, bicarbonate 29. Creatinine 1.0. INPATIENT MEDICATIONS: I had increased her Lasix yesterday to 20 mg p.o. b.i.d. The primary team adjusted her insulin and reduced her Lactulose to 30 ml twice daily. The remainder of her medications are unchanged from prior. PROBLEMS: 1. Diastolic congestive heart failure. Volume status appears fairly reasonable and is stable. She has a chronic right pleural effusion and will not benefit with drainage. Her chronic hypervolemic hyponatremia is stable as well. She continues on spironolactone 50 mg twice daily and I have increased her Lasix to 20 mg b.i.d. yesterday as well. Continue current diuretic regimen. Volume status is improving. 2. Cirrhosis with ascites. She has chronic hypoalbuminemia. She is on Midodrine for blood pressure support. Her Lactulose was adjusted by the primary service. She is on combination diuretics, Lasix and spironolactone. Her volume status is acceptable. Continue current regimen. 3. Hypervolemic hyponatremia, it is multiple factorial and related to cirrhosis plus congestive heart failure. Continue with spironolactone 50 mg twice daily and Lasix 20 mg twice daily and oral fluid restriction. 4. Infected right hip hemiarthroplasty. Patient is continued on Rifampin and Vancomycin as per Infectious Diseases. 5. Disposition: Patient is stable from a Nephrology point of view. She is going to be on SNF status. We will see her intermittently.
[2020-04-01 14:00] VITALS: BP 111/63
[2020-04-01] MEDS: ACETAMINOPHEN TAB 650MG DOSE (2X325MG) PO PRN (20:58)
[2020-04-01 22:00] VITALS: BP 107/65
[2020-04-02] MEDS: SODIUM CHLORIDE 0.9% INJ 10 ML SYR IV SCH ×2 (05:20→16:45)
[2020-04-02 06:00] VITALS: BP 107/63
[2020-04-02 06:47] LABS: HEMATOCRIT 28.4 % (36.0-47.0); MEAN CORPUSCULAR HEMOGLOBIN 32.6 pg (27.0-33.0); MEAN CORPUSCULAR HGB CONC 31.7 g/dl (32.0-36.5); MEAN CORPUSCULAR VOLUME 102.9 fl (80.0-96.0); PLATELET COUNT, AUTOMATED 249 10^3/uL (150-450); RED BLOOD COUNT 2.76 10^6/uL (4.00-5.40); WHITE BLOOD COUNT 6.1 10^3/uL (4.0-10.0)
[2020-04-02 07:26] LABS: CALCIUM LEVEL 9.7 MG/DL (8.8-10.2); CREATININE FOR GFR 1.08 MG/DL (0.55-1.30); GLOMERULAR FILTRATION RATE 51.5 (>32); POTASSIUM SERUM 3.5 MEQ/L (3.5-5.1)
[2020-04-02] MEDS: MIDODRINE 5 MG TAB PO SCH ×3 (08:00→16:00)
[2020-04-02] MEDS: SPIRONOLACTONE 50 MG TAB PO SCH ×2 (08:11→16:44)
[2020-04-02] MEDS: PERCOCET 5MG/325MG TAB PO PRN ×2 (08:12→15:38)
[2020-04-02] MEDS: LACTOBACILLUS ACIDOPHILUS CAP (BACID) PO SCH ×4 (08:13→16:44)
[2020-04-02] MEDS: ASPIRIN 81 MG ENTERIC TAB PO SCH ×2 (08:14→20:51)
[2020-04-02] MEDS: rifAMPin 150MG CAPSULE PO SCH ×2 (08:14→20:52)
[2020-04-02] MEDS: FUROSEMIDE 20 MG TAB PO SCH ×2 (08:14→16:44)
[2020-04-02] MEDS: LEVEMIR (INSULIN DETEMIR) 1 UNITS/0.01ML SC SCH ×2 (08:15→21:00)
[2020-04-02] MEDS: LACTULOSE 20 GM/30 ML SYRUP UD PO SCH ×2 (08:15→20:51)
[2020-04-02] MEDS: OMEPRAZOLE 20 MG CAP PO SCH (08:15)
[2020-04-02] MEDS: HumaLOG INSULIN (NovoLOG) PER UNIT SC SCH ×5 (08:16→21:00)
[2020-04-02 09:11] LABS: C REACTIVE PROTEIN QUANTITATIV 3.56 MG/DL (0.00-0.30)
[2020-04-02 09:18] LABS: ERYTHROCYTE SEDIMENTATION RATE 40 mm/hr (0-30)
[2020-04-02] MEDS: VANCOMYCIN HCL 500 MG in D5W MINI-BAG PLUS 100 ML IV SCH (13:00)
[2020-04-02 14:00] VITALS: BP 107/62
[2020-04-02] MEDS: ACETAMINOPHEN TAB 650MG DOSE (2X325MG) PO PRN (20:52)
[2020-04-02 20:58] VITALS: BP 109/61
[2020-04-03 04:49] VITALS: BP 118/53
[2020-04-03] MEDS: PERCOCET 5MG/325MG TAB PO PRN ×2 (04:53→08:57)
[2020-04-03] MEDS: SODIUM CHLORIDE 0.9% INJ 10 ML SYR IV SCH (04:53)
[2020-04-03 07:44] LABS: HEMATOCRIT 29.2 % (36.0-47.0); HEMOGLOBIN 9.1 g/dl (12.0-15.5); MEAN CORPUSCULAR HEMOGLOBIN 31.9 pg (27.0-33.0); MEAN CORPUSCULAR HGB CONC 31.2 g/dl (32.0-36.5); MEAN CORPUSCULAR VOLUME 102.5 fl (80.0-96.0); PLATELET COUNT, AUTOMATED 272 10^3/uL (150-450); RED BLOOD COUNT 2.85 10^6/uL (4.00-5.40)
[2020-04-03] MEDS ORDERED: RIFA150C2 PO (07:56)
[2020-04-03] MEDS ORDERED: RISATAB3 PO (07:56)
[2020-04-03] MEDS ORDERED: HEPA100I9 IV ×2 (07:56)
[2020-04-03] MEDS ORDERED: VANC500P IV (07:56)
[2020-04-03] MEDS: MIDODRINE 5 MG TAB PO SCH ×2 (08:00→11:45)
[2020-04-03 08:27] LABS: CREATININE FOR GFR 1.2 MG/DL (0.55-1.30); GLOMERULAR FILTRATION RATE 45.6 (>32); POTASSIUM SERUM 4.4 MEQ/L (3.5-5.1)
[2020-04-03] MEDS: LACTOBACILLUS ACIDOPHILUS CAP (BACID) PO SCH ×2 (08:56→12:00)
[2020-04-03] MEDS: rifAMPin 150MG CAPSULE PO SCH (08:56)
[2020-04-03] MEDS: ASPIRIN 81 MG ENTERIC TAB PO SCH (08:56)
[2020-04-03] MEDS: OMEPRAZOLE 20 MG CAP PO SCH (08:57)
[2020-04-03] MEDS: FUROSEMIDE 20 MG TAB PO SCH (08:58)
[2020-04-03] MEDS: LACTULOSE 20 GM/30 ML SYRUP UD PO SCH (08:58)
[2020-04-03] MEDS: SPIRONOLACTONE 50 MG TAB PO SCH (08:59)
[2020-04-03] MEDS: LEVEMIR (INSULIN DETEMIR) 1 UNITS/0.01ML SC SCH (09:00)
[2020-04-03] MEDS: HumaLOG INSULIN (NovoLOG) PER UNIT SC SCH ×2 (09:00→11:59)
--- NOTE | 2020-04-03 09:30 | IPN ---
PROGRESS NOTE DATE: 04/02/2020 SUBJECTIVE: Ada seems to be doing fairly well. She is stable. She has been transferred to [facility] level. She had the wound VAC changed yesterday. There is no redness or tenderness along the incision site. She is able to flex her hip about 80 degrees. PICC line was inserted in the right arm. Patient tolerated IV antibiotics without any side effects. No nausea, vomiting, or diarrhea. MEDICATIONS: Vancomycin 500 mg IV q. 24 hours, rifampin 300 mg p.o. b.i.d. OBJECTIVE: VITAL SIGNS: Temperature 97.2, pulse 72, respirations 20, blood pressure 109/61, O2 saturation 100% on room. HEART: Systolic ejection murmur 2/6 at the right upper sternal border. LUNGS: Clear with no wheezes, rales, or rhonchi. ABDOMEN: Obese, soft, and nontender. EXTREMITIES: Trace peripheral edema. Wound VAC at the right hip with some pitting edema, but no redness and minimal drainage in the wound VAC. LABORATORY DATA: White count 6.1, hemoglobin 9, hematocrit 28.4, platelets 249,000. ESR 40. Sodium 129, potassium 3.5, chloride 94, bicarb 30, BUN 13, creatinine 1.08, glucose 173, calcium 9.7, CRP 3.56. Blood cultures two sets on 03/21 were negative. Respiratory panel on 04/02 is negative for SARS-coV-2. IMPRESSION: 1. Infected right hip hemiarthroplasty with Staph epidermidis on IV vancomycin and or rifampin for a total of six weeks with end of therapy anticipated on 05/02/2020. 2. Diabetes well-controlled. 3. Heart failure and liver cirrhosis with hyponatremia, stable currently with good volume status per nephrology. PLAN: Continue with current IV antibiotics. PICC line was placed on 03/23/2020, right arm. Continue to monitor weekly labs including CBC, CMP, ESR, CRP, and vancomycin trough. If the patient is transferred to another long term, I would like to see her back in two to three weeks. Anticipated end of therapy 05/02/2020.Will try to check the wound when the wound VAC is removed on Monday with dressing changes.
[2020-04-03] MEDS: VANCOMYCIN HCL 500 MG in D5W MINI-BAG PLUS 100 ML IV SCH (11:45)
--- NOTE | 2020-04-03 16:06 | IPN ---
PROGRESS NOTE DATE: 04/03/2020 Ada seems to be doing fairly well except for some confusion. She was upset. She knows she is going to the [facility] for rehabilitation but is refusing to have the peripherally inserted central catheter (PICC) line stay in her right arm. She stated that she needs to get it off because it beeps all night long. She will have it placed somewhere else if she needs to. She denies any pain. Wound vacuum-assisted closure (VAC) was removed today. No nausea, vomiting, or diarrhea. She has chronic shortness of breath, unchanged. MEDICATIONS: - vancomycin 500 mg intravenous (IV) every 24 hours - rifampin 300 mg by mouth twice a day VITAL SIGNS: Temperature is 96.6, pulse 87, respirations 20, blood pressure 118/53, oxygen saturation 97% on room air. HEART: Normal S1, S2 with a systolic ejection murmur, 3/6, at the right upper sternal border, radiating all over. LUNGS: Diminished breath sounds at the bases but clear. ABDOMEN: Obese, soft, nontender. EXTREMITIES: Trace edema bilaterally. Hip has some edema. There is an Optifoam dressing. Well healed. No purulent discharge. No redness. LABORATORY DATA: White count is 6, hemoglobin 9.1, hematocrit 29.2, platelets 272, ESR 40. Sodium 127, potassium 4.4, chloride 27, BUN 14, creatinine 1.2, glucose 10. Vancomycin trough 18.7. IMPRESSION: 1. 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 2. Diabetes, well controlled. 3. Heart failure and liver cirrhosis with hyponatremia, compensated, stable. PLAN: Continue with current IV antibiotics. Monitor complete blood count (CBC), comprehensive metabolic profile (CMP), erythrocyte sedimentation rate (ESR), C-reactive protein (CRP), and vancomycin trough weekly. Please fax the report to Dr. Peralta's office. The patient will need to be seen in followup in 2-3 weeks, whenever she sees orthopedic surgery. The appointment could be made at the same time. Discontinue antibiotics on 05/02/2020.
== END 2020-04-03 13:50 | disposition home or self-care (01) | DRG 466 ==
LOC: EDSTATUS 11:59 → M PCU 15:24 → M MS5PR 03-22 11:18
PROVIDERS: ADMIT General Practice; ATTEND Orthopaedic Surgery
PROC: 0SRR0JZ Replacement of Right Hip Joint, Femoral Surface with Synthetic Substitute, Open Approach (ICD-10-PCS; principal; 2020-03-21)
PROC: 0SPR0JZ Removal of Synthetic Substitute from Right Hip Joint, Femoral Surface, Open Approach (ICD-10-PCS; 2020-03-21)
PROC: 02HV33Z Insertion of Infusion Device into Superior Vena Cava, Percutaneous Approach (ICD-10-PCS; 2020-03-23)
DX: T84.51XA Infection and inflammatory reaction due to internal right hip prosthesis, initial encounter (principal); I50.33 Acute on chronic diastolic (congestive) heart failure; E87.1 Hypo-osmolality and hyponatremia; R18.8 Other ascites; I13.0 Hypertensive heart and chronic kidney disease with heart failure and stage 1 through stage 4 chronic kidney disease, or unspecified chronic kidney disease; N17.9 Acute kidney failure, unspecified; J90 Pleural effusion, not elsewhere classified; I95.2 Hypotension due to drugs; K74.60 Unspecified cirrhosis of liver; K72.90 Hepatic failure, unspecified without coma; N18.9 Chronic kidney disease, unspecified; E11.22 Type 2 diabetes mellitus with diabetic chronic kidney disease; J45.909 Unspecified asthma, uncomplicated; Z95.0 Presence of cardiac pacemaker; E78.5 Hyperlipidemia, unspecified; I27.20 Pulmonary hypertension, unspecified; Z79.4 Long term (current) use of insulin; K21.9 Gastro-esophageal reflux disease without esophagitis; Z79.82 Long term (current) use of aspirin; Z79.899 Other long term (current) drug therapy; Z88.8 Allergy status to other drugs, medicaments and biological substances; D64.9 Anemia, unspecified; E87.6 Hypokalemia; E83.52 Hypercalcemia; Y83.1 Surgical operation with implant of artificial internal device as the cause of abnormal reaction of the patient, or of later complication, without mention of misadventure at the time of the procedure

== ENCOUNTER 2020-04-24 20:42 | Inpatient (IN) | payer MEDICARE ==
[~2020-04-24] VITALS: Ht 152.4 cm; Wt 71.2 kg
[~2020-04-24 20:42] MED LIST changes: +HEPA100I9 IV; +RIFA150C2 PO; +RISATAB3 PO; +VANC500P IV
[2020-04-25] VITALS (12 sets, daily range): BP systolic 100–122; BP diastolic 54–75; O2SAT 89–95
[2020-04-25] MEDS ORDERED: GLUCAGON INJ 1MG VIAL SC PRN ×2 (01:00→12:45)
[2020-04-25] MEDS ORDERED: MOM 30ML SUSPENSION UDC PO PRN (01:00)
[2020-04-25] MEDS ORDERED: DEXTROSE 50% 50 ML SYRINGE IV PRN ×2 (01:00→12:45)
[2020-04-25] MEDS ORDERED: GLUCOSE 4GM CHEW TABLET PO PRN ×2 (01:00→12:45)
[2020-04-25] MEDS ORDERED: MAALOX 30 ML SUSP *UDC PO PRN (01:00)
[2020-04-25] MEDS ORDERED: VANCOMYCIN HCL 1,000 MG, VIAL MATE ADAPTER 1 EACH in D5W 250 ML IV SCH (01:00)
--- OUTSIDE RECORDS SUMMARY | 2020-04-25 01:18 | CCD | Continuity of Care Document ---
Author Author Lindsay PATE MD Organization Unknown Address [address] [place] [address], [facility] [address] [place] [address] Phone [phone] Care Team Providers Care Hydrometallurgical Engineer Name Role Phone Mariano Bell BINA-Jo AUTM [phone] Problems Description No Information Available Social History Type Date Description Comments Sex Unknown Allergies, Adverse Reactions, Alerts Description No Information Available Medications Description No Information Available Immunizations Description No Information Available Vital Signs Date Vital Result Comment 02/24/2020 10:05am Body Temperature 96.7 F Height 60 inches 5'0" Weight 165.00 lb BMI (Body Mass Index) 32.2 kg/m2 Results Description No Information Available Procedures Date Code Description Status 03/21/2020 05028 Revise Total Hip Arthroplasty Fe moral Component Only Completed 02/26/2020 17612 FX Femur Neck Prox End Neck Int Fix Or Prosthetic Replacement Completed 02/26/2020 06827 FX Femur Prox End Neck Int Fix O r Prosthetic Replacement Completed 02/24/2020 25132 X-Ray Knee Ap & Lateral Complete d 01/31/2020 78873 X-Ray Knee Ap & Lateral Complete d 01/31/2020 31665 Inject/Drain Joint/Bursa Major C ompleted 12/20/2019 74078 X-Ray Knee Ap & Lateral Complete d 12/05/2019 02036 X-Ray Knee Ap & Lateral Complete d 12/05/2019 61377 Apply Cast Long Leg Completed 11/27/2019 62704 X-Ray Knee Ap & Lateral Complete d 11/27/2019 05540 FX Tibia Shaft W/O Manipulation Completed Medical Devices Description No Information Available Encounters Type Date Location Provider Dx Diagnosis Office Visit 02/24/2020 9:00a [facility] Jeni Boothe PA-C S82.221 D Displ transverse fx shaft of r tibia, 7thD M17.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 Tl PA-C S82.221 D Displ transverse fx shaft of r tibia, 7thD Office Visit 12/20/2019 1:00p Carson Jeni L. Tl PA-C S82.221 D Displ transverse fx shaft of r tibia, 7thD Office Visit 12/05/2019 10:45a [facility] Jeni L. Tl PA-C S82.221 D Displ transverse fx shaft of r tibia, 7thD M79.661 Pain in right lower leg Office Visit 11/27/2019 3:15p Carsonjuan miguel Boothe PA-C S82.221 A Displaced transverse fracture of shaft of right tibia, init Assessments Date Code Description Provider 03/21/2020 T84.51xA Infection and inflam matory reaction due to internal right hip prosthesis, initial encounter Ailyn Pate MD 02/26/2020 S72.001A Fracture of unspecif ied part of neck of right femur, initial encounter for closed fracture ALEXIS Joy 02/26/2020 S72.001A Fracture of unspecif ied part of neck of right femur, initial encounter for closed fracture Ailyn Pate MD 02/25/2020 S72.001A Fracture of unspecif ied part of neck of right femur, initial encounter for closed fracture Ailyn Pate MD 02/24/2020 S82.221D Displaced transverse fracture of shaft of right tibia, subsequent encounter for closed fracture with routine healing DIONNE GoldenC 02/24/2020 M17.11 Unilateral primary osteoarthriti s, right knee DIONNE GoldenC 01/31/2020 S82.221D Displaced transverse fracture of shaft of right tibia, subsequent encounter for closed fracture with routine healing DIONNE GoldenC 01/31/2020 M17.11 Unilateral primary osteoarthriti s, right knee Jeni Suero ДМИТРИЙ Boothe 12/31/2019 S82.221D Displaced transverse fracture of shaft of right tibia, subsequent encounter for closed fracture with routine healing Jeni Suero ДМИТРИЙ Boothe 12/20/2019 S82.221D Displaced transverse fracture of shaft of right tibia, subsequent encounter for closed fracture with routine healing Jeni Suero ДМИТРИЙ Boothe 12/05/2019 S82.221D Displaced transverse fracture of shaft of right tibia, subsequent encounter for closed fracture with routine healing Jeni L. ДМИТРИЙ Boothe 12/05/2019 M79.661 Pain in right lower leg Jeni L. ДМИТРИЙ Boothe 11/27/2019 S82.221A Displaced transverse fracture of shaft of right tibia, initial encounter for closed fracture Jeni L. ДМИТРИЙ Boothe Plan of Treatment 02/24/2020 - Jeni L. ДМИТРИЙ Boothe* S82.221D Displaced transverse fracture of shaft of right tibia, subsequent encounter for closed fracture with routine healing* Follow up:* prn * M17.11 Unilateral primary osteoarthritis, right knee Functional Status Description No Information Available Mental Status Description No Information Available Referrals Description No Information Available
--- OUTSIDE RECORDS SUMMARY | 2020-04-25 01:18 | CCD | Continuity of Care Document ---
Author Author Lindsay SALDIVAR PA-C Organization Unknown Address [address] [address] Phone [phone] Care Team Providers Care Wool Supplier Name Role Phone Mariano Bell BINA-C AUTM [phone] Problems Description No Information Available Social History [...] Information Available Procedures Date Code Description Status 02/26/2020 57115 FX Femur Neck Prox End Neck Int Fix Or Prosthetic Replacement Completed 02/26/2020 61092 FX Femur Prox End Neck Int Fix O r Prosthetic Replacement Completed 02/24/2020 05007 X-Ray Knee Ap & Lateral Complete d 01/31/2020 43615 X-Ray Knee Ap & Lateral Complete d 01/31/2020 17441 Inject/Drain Joint/Bursa Major C ompleted 12/20/2019 50143 X-Ray Knee Ap & Lateral Complete d 12/05/2019 55274 X-Ray Knee Ap & Lateral Complete d 12/05/2019 78836 Apply Cast Long Leg Completed 11/27/2019 37279 X-Ray Knee Ap & Lateral Complete d 11/27/2019 45175 FX Tibia Shaft W/O Manipulation Completed Medical Devices Description No Information Available Encounters Type Date Location Provider Dx Diagnosis Office Visit 02/24/2020 9:00a [facility] Jeni Saldivar PA-C S82.221 D Displ transverse fx shaft of r tibia, 7thD M17.11 Unilateral primary osteoarth ritis, right knee Office Visit 01/31/2020 10:30a [facility] Jeni L. 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 Tl PA-C S82.221 D Displ transverse fx shaft of r tibia, 7thD Office Visit 12/20/2019 1:00p [facility] Jeni L. Tl PA-C S82.221 D Displ transverse fx shaft of r tibia, 7thD Office Visit 12/05/2019 10:45a [facility] Jeni L. Tl PA-C S82.221 D Displ transverse fx shaft of r tibia, 7thD M79.661 Pain in right lower leg Office Visit 11/27/2019 3:15p [facility] Jeni L. Tl PA-C S82.221 A Displaced transverse fracture of shaft of right tibia, init Assessments Date Code Description Provider 02/26/2020 S72.001A Fracture of unspecif ied part [...] closed fracture with routine healing Jeni L. Tl PA-C 02/24/2020 M17.11 Unilateral primary osteoarthriti s, right knee Jeni L. Tl PA-C 01/31/2020 S82.221D Displaced transverse fracture of shaft of right tibia, subsequent encounter for closed fracture with routine healing Jeni L. Tl PA-C 01/31/2020 M17.11 Unilateral primary osteoarthriti s, right knee Jeni L. Tl PA-C 12/31/2019 S82.221D Displaced transverse fracture of shaft of right tibia, subsequent encounter for closed fracture with routine healing Jeni L. Tl PA-C 12/20/2019 S82.221D Displaced transverse fracture of shaft of right tibia, subsequent encounter for closed fracture with routine healing Jeni L. ДМИТРИЙ Saldivar 12/05/2019 S82.221D Displaced transverse fracture of shaft of right tibia, subsequent encounter for closed fracture with routine healing Jeni L. ДМИТРИЙ Saldivar 12/05/2019 M79.661 Pain in right lower leg Jeni L. ДМИТРИЙ Saldivar 11/27/2019 S82.221A Displaced transverse fracture of shaft of right tibia, initial encounter for closed fracture Jeni Nimo ДМИТРИЙ Saldivar Plan of Treatment 02/24/2020 - Jeni Nimo ДМИТРИЙ Saldivar* S82.221D Displaced transverse fracture of shaft of right tibia, subsequent encounter for closed fracture with routine healing* Follow up:* prn * M17.11 Unilateral primary osteoarthritis, right knee Functional Status Description No Information Available Mental Status Description No Information Available Referrals Description No Information Available
--- OUTSIDE RECORDS SUMMARY | 2020-04-25 01:23 | CCD ---
Author Author [facility] Organization [facility] Address Unknown Phone Unavailable Care Team Providers Care Sand Carrier Name Role Phone Virgil Yanes MD Unavailable [phone] Virgil Yanes MD Unavailable [phone] Virgil Yanes MD Unavailable [phone] Ian ELIZALDE MD Unavailable Unavailable Ian ELIZALDE MD Unavailable Unavailable Ian ELIZALDE MD Unavailable Unavailable Ian ELIZALDE MD Unavailable Unavailable Ian ELIZALDE MD Unavailable Unavailable Ian ELIZALDE MD Unavailable Unavailable Ian ELIZALDE MD Unavailable Unavailable Ian ELIZALDE MD Unavailable Unavailable Ian ELIZALDE MD Unavailable Unavailable Ian ELIZALDE MD Unavailable Unavailable Ian ELIZALDE MD Unavailable Unavailable Ian ELIZALDE MD Unavailable Unavailable Ian ELIZALDE MD Unavailable Unavailable Ian ELIZALDE MD Unavailable Unavailable Ian ELIZALDE MD Unavailable Unavailable Ian ELIZALDE MD Unavailable Unavailable Ian ELIZALDE MD Unavailable Unavailable Ian ELIZALDE MD Unavailable Unavailable Ian ELIZALDE MD Unavailable Unavailable Ian ELIZALDE MD Unavailable Unavailable Ian ELIZALDE MD Unavailable Unavailable Ian ELIZALDE MD Unavailable Unavailable Ian ELIZALDE MD Unavailable Unavailable Ian ELIZALDE MD Unavailable Unavailable Ian ELIZALDE MD Unavailable Unavailable Ian ELIZALDE MD Unavailable Unavailable Ian ELIZALDE MD Unavailable Unavailable Ian ELIZALDE MD Unavailable Unavailable Ian ELIZALDE MD Unavailable Unavailable Ian ELIZALDE MD Unavailable Unavailable Ian ELIZALDE MD Unavailable Unavailable Ian ELIZALDE MD Unavailable Unavailable Ian ELIZALDE MD Unavailable Unavailable Ian ELIZALDE MD Unavailable Unavailable Ian ELIZALDE MD Unavailable Unavailable Ian ELIZALDE MD Unavailable Unavailable Ian ELIZALDE MD Unavailable Unavailable Ian ELIZALDE MD Unavailable Unavailable Ian ELIZALDE MD Unavailable Unavailable Ian ELIZALDE MD Unavailable Unavailable Ian ELIZALDE MD Unavailable Unavailable Ian ELIZALDE MD Unavailable Unavailable Ian ELIZALDE MD Unavailable Unavailable Ian ELIZALDE MD Unavailable Unavailable Ian ELIZALDE MD Unavailable Unavailable Ian ELIZALDE MD Unavailable Unavailable Ian ELIZALDE MD Unavailable Unavailable Ian ELIZALDE MD Unavailable Unavailable Ian ELIZALDE MD Unavailable Unavailable Ian ELIZALDE MD Unavailable Unavailable Ian ELIZALDE MD Unavailable Unavailable Ian ELIZALDE MD Unavailable Unavailable Ian ELIZALDE MD Unavailable Unavailable Ian ELIZALDE MD Unavailable Unavailable Ian ELIZALDE MD Unavailable Unavailable Ian ELIZALDE MD Unavailable Unavailable Ian ELIZALDE MD Unavailable Unavailable Ian ELIZALDE MD Unavailable Unavailable Ian ELIZALDE MD Unavailable Unavailable Ian ELIZALDE MD Unavailable Unavailable Ian ELIZALDE MD Unavailable Unavailable Ian ELIZALDE MD Unavailable Unavailable Ian ELIZALDE MD Unavailable Unavailable Ian ELIZALDE MD Unavailable Unavailable Ian ELIZALDE MD Unavailable Unavailable Ian ELIZALDE MD Unavailable Unavailable Ian ELIZALDE MD Unavailable Unavailable Ian ELIZALDE MD Unavailable Unavailable Ian ELIZALDE MD Unavailable Unavailable Ian ELIZALDE MD Unavailable Unavailable Ian ELIZALDE MD Unavailable Unavailable Ian ELIZALDE MD Unavailable Unavailable Ian ELIZALDE MD Unavailable Unavailable Ian ELIZALDE MD Unavailable Unavailable Ian ELIZALDE MD Unavailable Unavailable Ian ELIZALDE MD Unavailable Unavailable Ian ELIZALDE MD Unavailable Unavailable Ian ELIZALDE MD Unavailable Unavailable Ian ELIZALDE MD Unavailable Unavailable Ian ELIZALDE MD Unavailable Unavailable Ian ELIZALDE MD Unavailable Unavailable Ian ELIZALDE MD Unavailable Unavailable Ian ELIZALDE MD Unavailable Unavailable Ian ELIZALDE MD Unavailable Unavailable Ian ELIZALDE MD Unavailable Unavailable Ian ELIZALDE MD Unavailable Unavailable Ian ELIZALDE MD Unavailable Unavailable Ian ELIZALDE MD Unavailable Unavailable Ian ELIZALDE MD Unavailable Unavailable Ian ELIZALDE MD Unavailable Unavailable Ian ELIZALDE MD Unavailable Unavailable Ian ELIZALDE MD Unavailable Unavailable Ian ELIZALDE MD Unavailable Unavailable Ian ELIZALDE MD Unavailable Unavailable Ian ELIZALDE MD Unavailable Unavailable Ian ELIZALDE MD Unavailable Unavailable DREW ESCOBAR Unavailable Unavailable Ian ELIZALDE MD Unavailable Unavailable Ian ELIZALDE MD Unavailable Unavailable Ian ELIZALDE MD Unavailable Unavailable Ian ELIZALDE MD Unavailable Unavailable Ian ELIZALDE MD Unavailable Unavailable Ian ELIZALDE MD Unavailable Unavailable Ian ELIZALDE MD Unavailable Unavailable Ian ELIZALDE MD Unavailable Unavailable Ian ELIZALDE MD Unavailable Unavailable Ian ELIZALDE MD Unavailable Unavailable Ian ELIZALDE MD Unavailable Unavailable Ian ELIZALDE MD Unavailable Unavailable Ian ELIZALDE MD Unavailable Unavailable Ian ELIZALDE MD Unavailable Unavailable Ian ELIZALDE MD Unavailable Unavailable Ian ELIZALDE MD Unavailable Unavailable Ian ELIZALDE MD Unavailable Unavailable Ian ELIZALDE MD Unavailable Unavailable Ian ELIZALDE MD Unavailable Unavailable Ian ELIZALDE MD Unavailable Unavailable Ian ELIZALDE MD Unavailable Unavailable Ian ELIZALDE MD Unavailable Unavailable Ian ELIZALDE MD Unavailable Unavailable Ian ELIZALDE MD Unavailable Unavailable Ian ELIZALDE MD Unavailable Unavailable Ian ELIZALDE MD Unavailable Unavailable Ian ELIZALDE MD Unavailable Unavailable Ian ELIZALDE MD Unavailable Unavailable Ian ELIZALDE MD Unavailable Unavailable Ian ELIZALDE MD Unavailable Unavailable Ian ELIZALDE MD Unavailable Unavailable Ian ELIZALDE MD Unavailable Unavailable Ian ELIZALDE MD Unavailable Unavailable Ian ELIZALDE MD Unavailable Unavailable Ian ELIZALDE MD Unavailable Unavailable Ian ELIZALDE MD Unavailable Unavailable Ian ELIZALDE MD Unavailable Unavailable Ian ELIZALDE MD Unavailable Unavailable Ian ELIZALDE MD Unavailable Unavailable Ian ELIZALDE MD Unavailable Unavailable Ian ELIZALDE MD Unavailable Unavailable Ian ELIZALDE MD Unavailable Unavailable Ian ELIZALDE MD Unavailable Unavailable Ian ELIZALDE MD Unavailable Unavailable Ian ELIZALDE MD Unavailable Unavailable Ian ELIZALDE MD Unavailable Unavailable Ian ELIZALDE MD Unavailable Unavailable Ian ELIZALDE MD Unavailable Unavailable Ian ELIZALDE MD Unavailable Unavailable Ian ELIZALDE MD Unavailable Unavailable Ian ELIZALDE MD Unavailable Unavailable Ian ELIZALDE MD Unavailable Unavailable Ian ELIZALDE MD Unavailable Unavailable Ian ELIZALDE MD Unavailable Unavailable Ian LEIZALDE MD Unavailable Unavailable Ian ELIZALDE MD Unavailable Unavailable Ian ELIZALDE MD Unavailable Unavailable Ian ELIZALDE MD Unavailable Unavailable Ian ELIZALDE MD Unavailable Unavailable Ian ELIZALDE MD Unavailable Unavailable Ian ELIZALDE MD Unavailable Unavailable Ian ELIZALDE MD Unavailable Unavailable Ian ELIZALDE MD Unavailable Unavailable Ian ELIZALDE MD Unavailable Unavailable Ian ELIZALDE MD Unavailable Unavailable Ian ELIZALDE MD Unavailable Unavailable Ian ELIZALDE MD Unavailable Unavailable Ian ELIZALDE MD Unavailable Unavailable Ian ELIZALDE MD Unavailable Unavailable Ian ELIZALDE MD Unavailable Unavailable Ian ELIZALDE MD Unavailable Unavailable Ian ELIZALDE MD Unavailable Unavailable Ian ELIZALDE MD Unavailable Unavailable Ian ELIZALDE MD Unavailable Unavailable Ian ELIZALDE MD Unavailable Unavailable Ian ELIZALDE MD Unavailable Unavailable Ian ELIZALDE MD Unavailable Unavailable Ian ELIZALDE MD Unavailable Unavailable Ian ELIZALDE MD Unavailable Unavailable Ian ELIZALDE MD Unavailable Unavailable Ian ELIZALDE MD Unavailable Unavailable Ian ELIZALDE MD Unavailable Unavailable Ian ELIZALDE MD Unavailable Unavailable Ian ELIZALDE MD Unavailable Unavailable Ian ELIZALDE MD Unavailable Unavailable Ian ELIZALDE MD Unavailable Unavailable Ian ELIZALDE MD Unavailable Unavailable Ian ELIZALDE MD Unavailable Unavailable Ian ELIZALDE MD Unavailable Unavailable Ian ELIZALDE MD Unavailable Unavailable Ian ELIZALDE MD Unavailable Unavailable Ian ELIZALDE MD Unavailable Unavailable Ian ELIZALDE MD Unavailable Unavailable Ian ELIZALDE MD Unavailable Unavailable Ian ELIZALDE MD Unavailable Unavailable Ian ELIZALDE MD Unavailable Unavailable Laine Royal MD Unavailable Unavailable Fish, [facility], PA-C Unavailable Unavailabl e Fish, [facility], PA-C Unavailable Unavailabl e Fish, [facility], PA-C Unavailable Unavailabl e Fish, [facility], PA-C Unavailable Unavailabl e Fish, [facility], PA-C Unavailable Unavailabl e Fish, [facility], PA-C Unavailable Unavailabl e Fish, [facility], PA-C Unavailable Unavailabl e Fish, [facility], PA-C Unavailable Unavailabl e Fish, [facility], PA-C Unavailable Unavailabl e Fish, [facility], PA-C Unavailable Unavailabl e Fish, [facility], PA-C Unavailable Unavailabl e Fish, [facility], PA-C Unavailable Unavailabl e Fish, [facility], PA-C Unavailable Unavailabl e Fish, [facility], PA-C Unavailable Unavailabl e Fish, [facility], PA-C Unavailable Unavailabl e Fish, [facility], PA-C Unavailable Unavailabl e Fish, [facility], PA-C Unavailable Unavailabl e Fish, [facility], PA-C Unavailable Unavailabl e Fish, [facility], PA-C Unavailable Unavailabl e Fish, [facility], PA-C Unavailable Unavailabl e Fish, [facility], PA-C Unavailable Unavailabl e Fish, [facility], PA-C Unavailable Unavailabl e Fish, [facility], PA-C Unavailable Unavailabl e Fish, [facility], PA-C Unavailable Unavailabl e Fish, [facility], PA-C Unavailable Unavailabl e Fish, [facility], PA-C Unavailable Unavailabl e Fish, [facility], PA-C Unavailable Unavailabl e Fish, [facility], PA-C Unavailable Unavailabl e Fish, [facility], PA-C Unavailable Unavailabl e Fish, Chikis Ngo MPAS, PA-C Unavailable Unavailabl e Fish, Chikis Ngo MPAS, PA-C Unavailable Unavailabl e Fish, Chikis Ngo MPAS, PA-C Unavailable Unavailabl e Fish, Chikis Ngo MPAS, PA-C Unavailable Unavailabl e LESLIEPETER KING Unavailable Unavailable SANCHESCOLE LUZ MD Unavailable Unavailable SANCHESCOLE MD Unavailable Unavailable SANCHESCOLE MD Unavailable Unavailable SANCHES COLE MD Unavailable Unavailable SANCHES COLE MD Unavailable Unavailable SANCHES COLE MD Unavailable Unavailable SANCHES COLE MD Unavailable Unavailable SANCHES COLE MD Unavailable Unavailable SANCHES COLE MD Unavailable Unavailable SANCHESCOLE MD Unavailable Unavailable SANCHESCOLE LUZ MD Unavailable Unavailable SANCHESCOLE MD Unavailable Unavailable SANCHESCOLE LUZ MD Unavailable Unavailable SANCHESCOLE MD Unavailable Unavailable SANCHESCOLE MD Unavailable Unavailable SANCHESCOLE LUZ MD Unavailable Unavailable SANCHESCOLE LUZ MD Unavailable Unavailable SANCHESCOLE LUZ MD Unavailable Unavailable SANCHESCOLE LUZ MD Unavailable Unavailable SANCHESCOLE MD Unavailable Unavailable SANCHESCOLE MD Unavailable Unavailable SANCHESCOLE MD Unavailable Unavailable SANCHESCOLE MD Unavailable Unavailable SANCHESCOLE LUZ MD Unavailable Unavailable SANCHESCOLE LUZ MD Unavailable Unavailable SANCHESCOLE LUZ MD Unavailable Unavailable SANCHESCOLE LUZ MD Unavailable Unavailable SANCHESCOLE LUZ MD Unavailable Unavailable SANCHESCOLE LUZ MD Unavailable Unavailable SANCHESCOLE MD Unavailable Unavailable SANCHESCOLE LUZ MD Unavailable Unavailable SANCHESCOLE LUZ MD Unavailable Unavailable SANCHESCOLE LUZ MD Unavailable Unavailable SANCHESCOLE LUZ MD Unavailable Unavailable SANCHESCOLE LUZ MD Unavailable Unavailable SANCHESCOLE MD Unavailable Unavailable SANCHESCOLE MD Unavailable Unavailable SANCHES COLE MD Unavailable Unavailable SANCHESCOLE MD Unavailable Unavailable SANCHESCOLE MD Unavailable Unavailable SANCHES COLE MD Unavailable Unavailable SANCHESCOLE LUZ MD Unavailable Unavailable SANCHESCOLE LUZ MD Unavailable Unavailable SANCHESCOLE MD Unavailable Unavailable SANCHESCOLE MD Unavailable Unavailable SANCHESCOLE MD Unavailable Unavailable SANCHES COLE MD Unavailable Unavailable SANCHESCOLE MD Unavailable Unavailable SANCHESCOLE MD Unavailable Unavailable SANCHESCOLE MD Unavailable Unavailable SANCHESCOLE MD Unavailable Unavailable SANCHES COLE MD Unavailable Unavailable SANCHESCOLE MD Unavailable Unavailable SANCHES COLE MD Unavailable Unavailable COLE SANCHES MD Unavailable Unavailable COLE SANCHES MD Unavailable Unavailable COLE SANCHES MD Unavailable Unavailable COLE SANCHES MD Unavailable Unavailable COLE SANCHES MD Unavailable Unavailable COLE SANCHES MD Unavailable Unavailable COLE SANCHES MD Unavailable Unavailable COLE SANCHES MD Unavailable Unavailable COLE SANCHES MD Unavailable Unavailable COLE SANCHES MD Unavailable Unavailable COLE SANCHES MD Unavailable Unavailable COLE SANCHES MD Unavailable Unavailable COLE SANCHES MD Unavailable Unavailable COLE SANCHES MD Unavailable Unavailable COLE SANCHES MD Unavailable Unavailable Drew Escobar MD Unavailable Unavaila ble MigeedDrew MD Unavailable Unavaila ble MigeedDrew MD Unavailable Unavaila ble MigeedDrew MD Unavailable Unavaila ble MigeedDrew MD Unavailable Unavaila ble MigeedDrew MD Unavailable Unavaila ble MigeedDrew MD Unavailable Unavaila ble MigeedDrew MD Unavailable Unavaila ble MigeedDrew MD Unavailable Unavaila ble MigeedDrew MD Unavailable Unavaila ble MigeedDrew MD Unavailable Unavaila ble MigeedDrew MD Unavailable Unavaila ble MigeedDrew MD Unavailable Unavaila ble MigeedDrew MD Unavailable Unavaila ble MigeedDrew MD Unavailable Unavaila ble MigeedDrew MD Unavailable Unavaila ble MigeedDrew MD Unavailable Unavaila ble MigeedDrew MD Unavailable Unavaila ble MigeedDrew MD Unavailable Unavaila ble MigeedDrew MD Unavailable Unavaila ble MigeedDrew MD Unavailable Unavaila ble MigeedDrew MD Unavailable Unavaila ble MigeedDrew MD Unavailable Unavaila ble MigeedDrew MD Unavailable Unavaila ble MigeedDrew MD Unavailable Unavaila ble MigeedDrew MD Unavailable Unavaila ble MigeedDrew MD Unavailable Unavaila ble MigeedDrew MD Unavailable Unavaila ble MigeedDrew MD Unavailable Unavaila ble MigeedDrew MD Unavailable Unavaila ble MigeedDrew MD Unavailable Unavaila ble MigeedDrew MD Unavailable Unavaila ble MigeedDrew MD Unavailable Unavaila ble MigeedDrew MD Unavailable Unavaila ble MigeedDrew MD Unavailable Unavaila ble MigeedDrew MD Unavailable Unavaila ble MigeedDrew MD Unavailable Unavaila ble MigeedDrew MD Unavailable Unavaila ble MigeedDrew MD Unavailable Unavaila ble MigeedDrew MD Unavailable Unavaila ble MigeedDrew MD Unavailable Unavaila ble MigeedDrew MD Unavailable Unavaila ble MigeedDrew MD Unavailable Unavaila ble Franky KENYON MD Unavailable Unavailable Franky KENYON MD Unavailable Unavailable Franky KENYON MD Unavailable Unavailable Franky KENYON MD Unavailable Unavailable Franky KENYON MD Unavailable Unavailable Franky KENYON MD Unavailable Unavailable Franky KENYON MD Unavailable Unavailable Franky KENYON MD Unavailable Unavailable Franky KENYON MD Unavailable Unavailable Franky KENYON MD Unavailable Unavailable Franky KENYON MD Unavailable Unavailable Franky KENYON MD Unavailable Unavailable Franky KENYON MD Unavailable Unavailable Franky KENYON MD Unavailable Unavailable Franky KENYON MD Unavailable Unavailable Franky KENYON MD Unavailable Unavailable Franky KENYON MD Unavailable Unavailable Franky KENYON MD Unavailable Unavailable Franky KENYON MD Unavailable Unavailable Franky KENYON MD Unavailable Unavailable Franky KENYON MD Unavailable Unavailable Franky KENYON MD Unavailable Unavailable Franky KENYON MD Unavailable Unavailable Franky KENYON MD Unavailable Unavailable Franky KENYON MD Unavailable Unavailable Franky KENYON MD Unavailable Unavailable Socorro SCHULTE MD Unavailable Unavailable SCHULTESocorro SOUSA MD Unavailable Unavailable Socorro SCHULTE MD Unavailable Unavailable Socorro SCHULTE CHELSEA MD Unavailable Unavailable Socorro SCHULTE MD Unavailable Unavailable Socorro SCHULTE MD Unavailable Unavailable Socorro SCHULTE MD Unavailable Unavailable Socorro SCHULTE MD Unavailable Unavailable Socorro SCHULTE MD Unavailable Unavailable Socorro SCHULTE MD Unavailable Unavailable Socorro SCHULTE MD Unavailable Unavailable Socorro SCHULTE MD Unavailable Unavailable Socorro SCHULTE MD Unavailable Unavailable Socorro SCHULTE MD Unavailable Unavailable Socorro SCHULTE MD Unavailable Unavailable Socorro SCHULTE MD Unavailable Unavailable Socorro SCHULTE MD Unavailable Unavailable Socorro SCHULTE MD Unavailable Unavailable Socorro SCHULTE MD Unavailable Unavailable Socorro SCHULTE MD Unavailable Unavailable Socorro SCHULTE MD Unavailable Unavailable Socorro SCHULTE MD Unavailable Unavailable Socorro SCHULTE MD Unavailable Unavailable Socorro SCHULTE MD Unavailable Unavailable Socorro SCHULTE MD Unavailable Unavailable Socorro SCHULTE MD Unavailable Unavailable Socorro SCHULTE MD Unavailable Unavailable Socorro SCHULTE MD Unavailable Unavailable Socorro SCHULTE MD Unavailable Unavailable Socorro SCHULTE MD Unavailable Unavailable Socorro SCHULTE MD Unavailable Unavailable Socorro SCHULTE MD Unavailable Unavailable Socorro SCHULTE MD Unavailable Unavailable Socorro SCHULTE MD Unavailable Unavailable Socorro SCHULTE MD Unavailable Unavailable Socorro SCHULTE MD Unavailable Unavailable Socorro SCHULTE MD Unavailable Unavailable Socorro SCHULTE MD Unavailable Unavailable Socorro SCHULTE MD Unavailable Unavailable Socorro SCHULTE MD Unavailable Unavailable Socorro SCHULTE MD Unavailable Unavailable Jo REN Unavailable Unavailable [facility] Unavailable Unavailable ALEJANDRA CLARK MD Unavailable Unavailable ALEJANDRA CLARK MD Unavailable Unavailable ALEJANDRA CLARK MD Unavailable Unavailable ALEJANDRA CLARK MD Unavailable Unavailable ALEJANDRA CLARK MD Unavailable Unavailable ALEJANDRA CLARK MD Unavailable Unavailable ALEJANDRA CLARK MD Unavailable Unavailable ALEJANDRA CLARK MD Unavailable Unavailable ALEJANDRA CLARK MD Unavailable Unavailable ALEJANDRA CLARK MD Unavailable Unavailable ALEJANDRA CLARK MD Unavailable Unavailable ALEJANDRA CLARK MD Unavailable Unavailable ALEJANDRA CLARK MD Unavailable Unavailable ALEJANDRA CLARK MD Unavailable Unavailable ALEJANDRA CLARK MD Unavailable Unavailable Italia-Werner, K Andrese Unavailable Unavailable Italia-Werner, K Andrese Unavailable Unavailable Italia-Werner, K Imre Unavailable Unavailable Italia-Werner, K Andrese Unavailable Unavailable Italia-Werner, K Andrese Unavailable Unavailable Virgil Yanes MD Unavailable Unavailable PETER LESLIE Unavailable Unavailable LIORIan MD Unavailable Unavailable LIORIan MD Unavailable Unavailable LIORIan MD Unavailable Unavailable LIORIan MD Unavailable Unavailable LIORIan MD Unavailable Unavailable LIOR, Ian WILSON MD Unavailable Unavailable LIOR, Ian WILSON MD Unavailable Unavailable LIOR, Ian WILSON MD Unavailable Unavailable LIOR, Ian WILSON MD Unavailable Unavailable LIOR, Ian WILSON MD Unavailable Unavailable LIOR, Ian WILSON MD Unavailable Unavailable LIOR, Ian WILSON MD Unavailable Unavailable LIOR, Ian WILSON MD Unavailable Unavailable LIOR, Ian WILSON MD Unavailable Unavailable LIORIan MD Unavailable Unavailable LIORIan MD Unavailable Unavailable LIORIan MD Unavailable Unavailable LIORIan MD Unavailable Unavailable LIORIan MD Unavailable Unavailable LIOR, Ian WILSON MD Unavailable Unavailable LIOR, Ian WILSON MD Unavailable Unavailable LIORIan MD Unavailable Unavailable LIORIan MD Unavailable Unavailable LIORIan MD Unavailable Unavailable LIOR, Ian WILSON MD Unavailable Unavailable LIOR, Ian WILSON MD Unavailable Unavailable LIOR, Ian WILSON MD Unavailable Unavailable LIOR, Ian WILSON MD Unavailable Unavailable LIOR, Ian WILSON MD Unavailable Unavailable LIOR, Ian WILSON MD Unavailable Unavailable LIORIan MD Unavailable Unavailable LIORIan MD Unavailable Unavailable LIORIan MD Unavailable Unavailable LIOR, Ian WILSON MD Unavailable Unavailable LIOR, Ian WILSON MD Unavailable Unavailable LIOR, Ian WILSON MD Unavailable Unavailable LIORIan RAMÍREZ MD Unavailable Unavailable LIORIan MD Unavailable Unavailable LIORIan MD Unavailable Unavailable LIOR, Ian WILSON MD Unavailable Unavailable LIOR, Ian WILSON MD Unavailable Unavailable LIOR, Ian WILSON MD Unavailable Unavailable LIOR, Ian WILSON MD Unavailable Unavailable LIORIan RAMÍREZ MD Unavailable Unavailable LIORIan MD Unavailable Unavailable LIORIan MD Unavailable Unavailable LIOR, Ian WILSON MD Unavailable Unavailable LIOR, Ian WILSON MD Unavailable Unavailable LIOR, Ian WILSON MD Unavailable Unavailable LIOR, Ian WILSON MD Unavailable Unavailable LIORIan MD Unavailable Unavailable LIORIan MD Unavailable Unavailable LIORIan MD Unavailable Unavailable LIOR, Ian WILSON MD Unavailable Unavailable LIOR, Ian WILSON MD Unavailable Unavailable LIOR, Ian WILSON MD Unavailable Unavailable LIORIan MD Unavailable Unavailable LIORIan MD Unavailable Unavailable LIORIan MD Unavailable Unavailable LIORIan MD Unavailable Unavailable LIOR, Ian WILSON MD Unavailable Unavailable LIOR, Ian WILSON MD Unavailable Unavailable LIORIan MD Unavailable Unavailable LIORIan MD Unavailable Unavailable LIORIan MD Unavailable Unavailable LIORIan MD Unavailable Unavailable LIORIan MD Unavailable Unavailable LIORIan MD Unavailable Unavailable LIORIan MD Unavailable Unavailable LIORIan MD Unavailable Unavailable LIORIan RAMÍREZ MD Unavailable Unavailable LIORIan RAMÍREZ MD Unavailable Unavailable LIORIan MD Unavailable Unavailable LIORIan MD Unavailable Unavailable LIORIan MD Unavailable Unavailable LIORIan MD Unavailable Unavailable ZEGIL, D HAKAN OUTSIDE CUTTER HAND Unavailable Unavailable ZEGIL, D HAKAN OUTSIDE CUTTER HAND Unavailable Unavailable ZEGIL, D HAKAN OUTSIDE CUTTER HAND Unavailable Unavailable Kojo, Christo DO Unavailable Unavailable Kojo, Christo DO Unavailable Unavailable [place], Christo DO Unavailable Unavailable [place], Christo DO Unavailable Unavailable Kojo, Christo DO Unavailable Unavailable SUDORE, Juan CHRISTIANSON MD Unavailable Unavailable SUDORE, Juan CHRISTIANSON MD Unavailable Unavailable SUDORE, Juan CHRISTIANSON MD Unavailable Unavailable SUDORE, Juan CHRISTIANSON MD Unavailable Unavailable SUDORE, Juan CHRISTIANSON MD Unavailable Unavailable SUDORE, Juan CHRISTIANSON MD Unavailable Unavailable SUDORE, A DENNIS BARNES Unavailable Unavailable SUDORE, A DENNIS MD Unavailable Unavailable SUDORE, A DENNIS MD Unavailable Unavailable SUDORE, A DENNIS MD Unavailable Unavailable SUDORE, A DENNIS MD Unavailable Unavailable SUDORE, A DENNIS MD Unavailable Unavailable SUDORE, A DENNIS MD Unavailable Unavailable SUDORE, A DENNIS MD Unavailable Unavailable SUDORE, A DENNIS MD Unavailable Unavailable SUDORE, A DENNIS MD Unavailable Unavailable SUDORE, A DENNIS MD Unavailable Unavailable SUDORE, A DENNIS MD Unavailable Unavailable SUDORE, A DENNIS MD Unavailable Unavailable Ian CARDENAS MD Unavailable Unavailable Ian CARDENAS MD Unavailable Unavailable Ian CARDENAS MD Unavailable Unavailable Ian CARDENAS MD Unavailable Unavailable Ian CARDENAS MD Unavailable Unavailable Ian CARDENAS MD Unavailable Unavailable Ian CARDENAS MD Unavailable Unavailable Ian CARDENAS MD Unavailable Unavailable Ian CARDENAS MD Unavailable Unavailable Ian CARDENAS MD Unavailable Unavailable Ian CARDENAS MD Unavailable Unavailable Ian CARDENAS MD Unavailable Unavailable Ian CARDENAS MD Unavailable Unavailable Ian CARDENAS MD Unavailable Unavailable Ian CARDENAS MD Unavailable Unavailable Ian CARDENAS MD Unavailable Unavailable Ian CARDENAS MD Unavailable Unavailable Ian CARDENAS MD Unavailable Unavailable Ian CARDENAS MD Unavailable Unavailable Ian CARDENAS MD Unavailable Unavailable Ian CARDENAS MD Unavailable Unavailable Ian CARDENAS MD Unavailable Unavailable Ian CARDENAS MD Unavailable Unavailable Ian CARDENAS MD Unavailable Unavailable Ian CARDENAS MD Unavailable Unavailable Ian CARDENAS MD Unavailable Unavailable Ian CARDENAS MD Unavailable Unavailable Ian CARDENAS MD Unavailable Unavailable Ian CARDENAS MD Unavailable Unavailable Ian CARDENAS MD Unavailable Unavailable Ian CARDENAS MD Unavailable Unavailable Ian CARDENAS MD Unavailable Unavailable Ian CARDENAS MD Unavailable Unavailable Ian CARDENAS MD Unavailable Unavailable Ian CARDENAS MD Unavailable Unavailable Ian CARDENAS MD Unavailable Unavailable Ian CARDENAS MD Unavailable Unavailable Ian CARDENAS MD Unavailable Unavailable Ian CARDENAS MD Unavailable Unavailable Ian CARDENAS MD Unavailable Unavailable Ian CARDENAS MD Unavailable Unavailable Ian CARDENAS MD Unavailable Unavailable Ian CARDENAS MD Unavailable Unavailable Ian CARDENAS MD Unavailable Unavailable Ian CARDENAS MD Unavailable Unavailable Ian CARDENAS MD Unavailable Unavailable Ian CARDENAS MD Unavailable Unavailable Ian CARDENAS MD Unavailable Unavailable Ian CARDENAS MD Unavailable Unavailable Ian CARDENAS MD Unavailable Unavailable Ian CARDENAS MD Unavailable Unavailable Ian CARDENAS MD Unavailable Unavailable Ian CARDENAS MD Unavailable Unavailable Ian CARDENAS MD Unavailable Unavailable Ian CARDENAS MD Unavailable Unavailable Ian CARDENAS MD Unavailable Unavailable Ina CARDENAS MD Unavailable Unavailable Ian CARDENAS MD Unavailable Unavailable Ian CARDENAS MD Unavailable Unavailable Ian CARDENAS MD Unavailable Unavailable Ian CARDENAS MD Unavailable Unavailable Ian CARDENAS MD Unavailable Unavailable Ian CARDENAS MD Unavailable Unavailable Ian CARDENAS MD Unavailable Unavailable Ian CARDENAS MD Unavailable Unavailable De Borgia, FEDERICO STORY WRITER Unavailable Unavailable Virginia, FEDERICO STORY WRITER Unavailable Unavailable De Borgia, FEDERICO STORY WRITER Unavailable Unavailable De Borgia, FEDERICO STORY WRITER Unavailable Unavailable Virginia, FEDERICO STORY WRITER Unavailable Unavailable De Borgia, FEDERICO STORY WRITER Unavailable Unavailable Virginia, FEDERICO STORY WRITER Unavailable Unavailable Virginia, FEDERICO STORY WRITER Unavailable Unavailable Virginia, FEDERICO STORY WRITER Unavailable Unavailable De Borgia, FEDERICO STORY WRITER Unavailable Unavailable Masood Richardson MD Unavailable Unavailable Masood Richardson MD Unavailable Unavailable Masood Richardson MD Unavailable Unavailable Masood Richardson MD Unavailable Unavailable Masood Richardson MD Unavailable Unavailable Masood Richardson MD Unavailable Unavailable Masood Richardson MD Unavailable Unavailable Masood Richardson MD Unavailable Unavailable Masood Richardson MD Unavailable Unavailable Masood Richardson MD Unavailable Unavailable Masood Richardson MD Unavailable Unavailable Masood Richardson MD Unavailable Unavailable Francisco Richardsoneem MD Unavailable Unavailable TASH, A CECILE PA Unavailable Unavailable TASH, A CECILE PA Unavailable Unavailable TASH, A CECILE PA Unavailable Unavailable TASH, A CECILE PA Unavailable Unavailable TASH, A CECILE PA Unavailable Unavailable TASH, A CECILE PA Unavailable Unavailable TASH, A CECILE PA Unavailable Unavailable TASH, A CECILE PA Unavailable Unavailable TASH, A CECILE PA Unavailable Unavailable TASH, A CECILE PA Unavailable Unavailable TASH, A CECILE PA Unavailable Unavailable TASH, A CECILE PA Unavailable Unavailable TASH, A CECILE PA Unavailable Unavailable SUDHAKAR CHAMBERS MD Unavailable Unavailable SUDHAKAR CHAMBERS MD Unavailable Unavailable SUDHAKAR CHAMBERS MD Unavailable Unavailable SUDHAKAR CHAMBERS MD Unavailable Unavailable SUDHAKAR CHAMBERS MD Unavailable Unavailable SUDHAKAR CHAMBERS MD Unavailable Unavailable SUDHAKAR CHAMBERS MD Unavailable Unavailable SUDHAKAR CHAMBERS MD Unavailable Unavailable SUDHAKAR CHAMBERS MD Unavailable Unavailable SUDHAKAR CHAMBERS MD Unavailable Unavailable SUDHAKAR CHAMBERS MD Unavailable Unavailable SUDHAKAR CHAMBERS MD Unavailable Unavailable TRISHSUDHAKAR MD Unavailable Unavailable TRISHSUDHAKAR MD Unavailable Unavailable TRISH, SUDHAKAR BARNES Unavailable Unavailable TRISH, SUDHAKAR BARNES Unavailable Unavailable TRISH, SUDHAKAR BARNES Unavailable Unavailable TRISH, SUDHAKAR BARNES Unavailable Unavailable TRISH, SUDHAKAR BARNES Unavailable Unavailable TRISH, SUDHAKAR BARNES Unavailable Unavailable TRISH, SUDHAKAR BARNES Unavailable Unavailable TRISH, SUDHAKAR BARNES Unavailable Unavailable TRISH, SUDHAKAR BARNES Unavailable Unavailable TRISH, SUDHAKAR BARNES Unavailable Unavailable TRISH, SUDHAKAR BARNES Unavailable Unavailable TRISH, SUDHAKAR BARNES Unavailable Unavailable TRISH, SUDHAKAR BARNES Unavailable Unavailable TRISH, SUDHAKAR BARNES Unavailable Unavailable TRISH, SUDHAKAR BARNES Unavailable Unavailable TRISH, SUDHAKAR BARNES Unavailable Unavailable TRISH, SUDHAKAR BARNES Unavailable Unavailable TRISH, SUDHAKAR BARNES Unavailable Unavailable TRISH, SUDHAKAR BARNES Unavailable Unavailable TRISH, SUDHAKAR BARNES Unavailable Unavailable TRISH, SUDHAKAR BARNES Unavailable Unavailable TRISH, SUDHAKAR BARNES Unavailable Unavailable TRISH, SUDHAKAR BARNES Unavailable Unavailable TRISH, SUDHAKAR BARNES Unavailable Unavailable TRISH, SUDHAKAR BARNES Unavailable Unavailable TRISH, SUDHAKAR BARNES Unavailable Unavailable TRISH, SUDHAKAR BARNES Unavailable Unavailable TRISH, SUDHAKAR BARNES Unavailable Unavailable TRISH, SUDHAKAR BARNES Unavailable Unavailable TRISH, SUDHAKAR BARNES Unavailable Unavailable TRISH, SUDHAKAR BARNES Unavailable Unavailable TRISH, SUDHAKAR BARNES Unavailable Unavailable TRISH, SUDHAKAR BARNES Unavailable Unavailable TRISH, SUDHAKAR BARNES Unavailable Unavailable TRISH, SUDHAKAR BARNES Unavailable Unavailable TRISH, SUDHAKAR BARNES Unavailable Unavailable TRISH, SUDHAKAR BARNES Unavailable Unavailable TRISH, SUDHAKAR BARNES Unavailable Unavailable TRISH, SUDHAKAR BARNES Unavailable Unavailable TRISH, SUDHAKAR BARNES Unavailable Unavailable Federico R De Borgia, R OUTSIDE CUTTER HAND OUTSIDE CUTTER HAND Unavailable Unavailable SILVINO IV, L SELWYN OUTSIDE CUTTER HAND Unavailable Unavailable SILVINO IV, L SELWYN OUTSIDE CUTTER HAND Unavailable Unavailable SILVINO IV, L SELWYN OUTSIDE CUTTER HAND Unavailable Unavailable SILVINO IV, L SELWYN OUTSIDE CUTTER HAND Unavailable Unavailable SILVINO IV, L SELWYN OUTSIDE CUTTER HAND Unavailable Unavailable SILVINO IV, L SELWYN OUTSIDE CUTTER HAND Unavailable Unavailable SILVINO IV, L SELWYN OUTSIDE CUTTER HAND Unavailable Unavailable SILVINO IV, L SELWYN OUTSIDE CUTTER HAND Unavailable Unavailable SILVINO IV, L SELWYN OUTSIDE CUTTER HAND Unavailable Unavailable SILVINO IV, L SELWYN OUTSIDE CUTTER HAND Unavailable Unavailable SILVINO IV, L SELWYN OUTSIDE CUTTER HAND Unavailable Unavailable SILVINO IV, L SELWYN OUTSIDE CUTTER HAND Unavailable Unavailable SILVINO IV, L SELWYN OUTSIDE CUTTER HAND Unavailable Unavailable SILVINO IV, L SELWNY OUTSIDE CUTTER HAND Unavailable Unavailable SILVINO IV, L SELWYN OUTSIDE CUTTER HAND Unavailable Unavailable SILVINO IV, L SELWYN OUTSIDE CUTTER HAND Unavailable Unavailable SILVINO IV, L SELWYN OUTSIDE CUTTER HAND Unavailable Unavailable SILVINO IV, L SELWYN OUTSIDE CUTTER HAND Unavailable Unavailable SILVINO IV, L SELWYN OUTSIDE CUTTER HAND Unavailable Unavailable SILVINO IV, L SELWYN OUTSIDE CUTTER HAND Unavailable Unavailable SILVINO IV, L SELWYN OUTSIDE CUTTER HAND Unavailable Unavailable SILVINO IV, L SELWYN OUTSIDE CUTTER HAND Unavailable Unavailable SILVINO IV, L SELWYN OUTSIDE CUTTER HAND Unavailable Unavailable SILVINO IV, L SELWYN OUTSIDE CUTTER HAND Unavailable Unavailable SILVINO IV, L SELWYN OUTSIDE CUTTER HAND Unavailable Unavailable SILVINO IV, L SELWYN OUTSIDE CUTTER HAND Unavailable Unavailable SILVINO IV, L SELWYN OUTSIDE CUTTER HAND Unavailable Unavailable SILVINO IV, L SELWYN OUTSIDE CUTTER HAND Unavailable Unavailable SILVINO IV, L SELWYN OUTSIDE CUTTER HAND Unavailable Unavailable SILVINO IV, L SELWYN OUTSIDE CUTTER HAND Unavailable Unavailable SILVINO IV, L SELWYN OUTSIDE CUTTER HAND Unavailable Unavailable SILVINO IV, L SELWYN OUTSIDE CUTTER HAND Unavailable Unavailable Oj Martínez JR, MD Unavailable Unavailable Oj Martínez JR, MD Unavailable Unavailable Oj Martínez JR, MD Unavailable Unavailable Oj Martínez JR, MD Unavailable Unavailable Oj Martínez JR, MD Unavailable Unavailable Oj Martínez JR, MD Unavailable Unavailable Oj Martínez JR, MD Unavailable Unavailable Oj Martínez JR, MD Unavailable Unavailable Oj Martínez JR, MD Unavailable Unavailable Oj Martínez JR, MD Unavailable Unavailable Oj Martínez JR, MD Unavailable Unavailable Oj Martínez JR, MD Unavailable Unavailable Oj Martínez JR, MD Unavailable Unavailable Oj Martínez JR, MD Unavailable Unavailable Oj Martínez JR, MD Unavailable Unavailable Oj Martínez JR, MD Unavailable Unavailable Oj Martínez JR, MD Unavailable Unavailable Oj Martínez JR, MD Unavailable Unavailable Ian EMANUEL MD Unavailable Unavailable Ian EMANUEL MD Unavailable Unavailable Ian EMANUEL MD Unavailable Unavailable Ian EMANUEL MD Unavailable Unavailable Ian EMANUEL MD Unavailable Unavailable Ian EMANUEL MD Unavailable Unavailable Ian EMANUEL MD Unavailable Unavailable Ian EMANUEL MD Unavailable Unavailable Ian EMANUEL MD Unavailable Unavailable Ian EMANUEL MD Unavailable Unavailable Ian EMANUEL MD Unavailable Unavailable Ian EMANUEL MD Unavailable Unavailable Ian EMANUEL MD Unavailable Unavailable Ian EMANUEL MD Unavailable Unavailable Ian EMANUEL MD Unavailable Unavailable Ian EMANUEL MD Unavailable Unavailable Ian EMANUEL MD Unavailable Unavailable Ian EMANUEL MD Unavailable Unavailable Ian EMANUEL MD Unavailable Unavailable Ian EMANUEL MD Unavailable Unavailable Ian EMANUEL MD Unavailable Unavailable Ian EMANUEL MD Unavailable Unavailable LIOR, J KATIE BARNES Unavailable Unavailable LIOR, J KATIE BARNES Unavailable Unavailable LIOR, J KATIE BARNES Unavailable Unavailable LIOR, J KATIE BARNES Unavailable Unavailable LIOR, J KATIE BARNES Unavailable Unavailable LIOR, J KATIE BARNES Unavailable Unavailable LIOR, J KATIE BARNES Unavailable Unavailable LIOR, J KATIE BARNES Unavailable Unavailable LIOR, J KATIE BARNES Unavailable Unavailable LIOR, J KATIE BARNES Unavailable Unavailable LIOR, J KATIE BARNES Unavailable Unavailable LIOR, J KATIE BARNES Unavailable Unavailable LIOR, J KATIE BARNES Unavailable Unavailable LIOR, J KATIE BARNES Unavailable Unavailable LIOR, J KATIE BARNES Unavailable Unavailable LIOR, J KATIE BARNES Unavailable Unavailable LIOR, J KATIE BARNES Unavailable Unavailable LIOR, J KATIE BARNES Unavailable Unavailable LIOR, J KATIE BARNES Unavailable Unavailable LIOR, J KATIE BARNES Unavailable Unavailable LIOR, J KATIE BARNES Unavailable Unavailable LIOR, J KATIE BARNES Unavailable Unavailable LIOR, J KATIE BARNES Unavailable Unavailable LIOR, J KATIE BARNES Unavailable Unavailable LIOR, J KATIE BARNES Unavailable Unavailable LIOR, J KATIE BARNES Unavailable Unavailable LIOR, J KATIE BARNES Unavailable Unavailable LIOR, J KATIE BARNES Unavailable Unavailable LIOR, J KATIE BARNES Unavailable Unavailable LIOR, J KATIE BARNES Unavailable Unavailable LIOR, J KATIE BARNES Unavailable Unavailable LIOR, J KATIE BARNES Unavailable Unavailable LIOR, J KATIE BARNES Unavailable Unavailable LIOR, J KATIE BARNES Unavailable Unavailable LIOR, J KATIE BARNES Unavailable Unavailable LIOR, J KATIE BARNES Unavailable Unavailable LIOR, J KATIE BARNES Unavailable Unavailable LIOR, J KATIE BARNES Unavailable Unavailable LIOR, J KATIE BARNES Unavailable Unavailable LIOR, J KATIE BARNES Unavailable Unavailable LIOR, J KATIE BARNES Unavailable Unavailable LIOR, J KATIE BARNES Unavailable Unavailable LIOR, J KATIE BARNES Unavailable Unavailable LIOR, J KATIE BARNES Unavailable Unavailable LIOR, J KATIE BARNES Unavailable Unavailable LIOR, Ian WILSON MD Unavailable Unavailable LIOR, Ian WILSON MD Unavailable Unavailable LIOR, Ian WILSON MD Unavailable Unavailable LIOR, Ian WILSON MD Unavailable Unavailable LIOR, Ian WILSON MD Unavailable Unavailable LIOR, Ian WILSON MD Unavailable Unavailable LIOR, Ian WILSON MD Unavailable Unavailable LIOR, Ian WILSON MD Unavailable Unavailable LIOR, Ian WILSON MD Unavailable Unavailable Selwyn Bell, IV BLOCK PILER Unavailable Unavailable Re-disclosure Warning The records that you are about to access may contain information from federally-assisted alcohol or drug abuse programs. If such information is present, then the following federally mandated warning applies: This information has been disclosed to you from records protected by federal confidentiality rules (42 CFR part 2). The federal rules prohibit you from making any further disclosure of this information unless further disclosure is expressly permitted by the written consent of the person to whom it pertains or as otherwise permitted by 42 CFR part 2. A general authorization for the release of medical or other information is NOT sufficient for this purpose. The Federal rules restrict any use of the information to criminally investigate or prosecute any alcohol or drug abuse patient.The records that you are about to access may contain highly sensitive health information, the redisclosure of which is protected by Article 27-F of the [place] [facility] Public Health law. If you continue you may have access to information: Regarding HIV / AIDS; Provided by facilities licensed or operated by the [facility] Office of Mental Health; or Provided by the [facility] Office for People With Developmental Disabilities. If such information is present, then the following [facility] mandated warning applies: This information has been disclosed to you from confidential records which are protected by state law. State law prohibits you from making any further disclosure of this information without the specific written consent of the person to whom it pertains, or as otherwise permitted by law. Any unauthorized further disclosure in violation of state law may result in a fine or residential sentence or both. A general authorization for the release of medical or other information is NOT sufficient authorization for further disc losure. Allergies and Adverse Reactions Type Description Substance Reaction Status Data Source(s ) BRANDNAME DEMEROL DEMEROL sweating [facility] Drug allergy Drug allergy meperidine (From Demerol) Nausea M Unknown Reaction U [facility] Drug allergy Drug allergy meperidine HCl (From Demerol) Vomiting I [facility] Drug allergy Drug allergy Unable to Assess [facility] Propensity to adverse reactions MEPERIDINE HCL Meperidine Hcl Active [facility] Family History Family Member Name Family Member Gender Family Member Status Date o f Status Description Data Source(s) Unknown Male Problem [facility] ([facility]) Encounters Encounter Providers Location Date Indications Data Source(s ) Outpatient Attender: [facility] 04/24/2020 02:4 5:00 PM EST [facility] Emergency Attender: RASHMI ALEJANDRACOConsultant: CHELSEA SCHULTE MD 04/24/2020 02:24:00 PM EST - 04/25/2020 12:09:00 AM EST [facility] Patient discharged. Outpatient Attender: COLE SANCHES MDConsultant: CHELSEA Alan MD 04/06/2020 04:58:00 PM EST - 04/06/2020 05:03:00 PM EST [facility] Emergency Attender: HAKAN LEAL OUTSIDE CUTTER HAND ED-ED 03/2019 10:30:00 AM EST - 02/25/2020 05:05:00 PM EST FAILURE TO THRIVE [facility] FAILURE TO THRIVE Patient discharged. Office Visit Attender: Jeni SOUSA PA-C Physical Therapy 02/24/2020 08:00:00 AM EST [facility] ([facility]) Outpatient Attender: KATIE EMANUEL MD CPSCAORT-LABPNP 01/26 09:48:00 AM EST - 02/21/2020 09:49:00 AM EST FREQUENT URINATION [facility] FREQUENT URINATION Patient discharged. Outpatient Attender: Jeni SOUSA PA-C Physical Therapy 01/31/2020 09:30:00 AM EST [facility] ([facility]) Outpatient Attender: BINA [facility] FNPAtten carli: [facility] STORY WRITER CPSCAORT-LABPNP 01/29/2020 07:00:00 AM EST COVID SCREENING [facility] COVID SCREENING Outpatient Attender: Christo Varma DO CPSCAORT-LABPNP 01/23/2020 12 :00:00 PM EDT COVID 19 SCREENING [facility] COVID 19 SCREENING Outpatient MAGDI-MAGDI 01/18/2020 07:14:14 PM EDT [facility] Recurring Patient Referrer: DELON ELIZALDE MD 0 01:05:03 PM EDT [facility] Outpatient Attender: SUDHAKAR FAIRBANKS-SJP.GVR 01/13/2020 12:00:00 AM EDT [facility] Outpatient SJP-[email or web address].GVR 01/13/2020 12:00:00 AM EDT [facility] Outpatient Attender: KATIE EMANUEL MD CPSCACARL-IMAPD 11/2019 02:26:00 PM EDT - 01/03/2020 02:27:00 PM EDT PAIN RIGHT LEG EDEMA [facility] PAIN RIGHT LEG EDEMA Patient discharged. Office Visit Attender: Jeni SOUSA PA-C Physical Therapy 12/31/2019 09:00:00 AM EDT [facility] ([facility]) Outpatient Attender: BINA Marquez De Borgia FNPAttvivian carli: FEDERICO [place] STORY WRITER CPSCAORT-LABPNP 12/26/2019 10:40:00 AM EDT I48.91; E11.9, AFIB, DM2 [facility] I48.91; E11.9, AFIB, DM2 Resident Attender: KATIE EMANUEL MDAdmitter: KATIE HARRIS MD 3 12/25/2019 10:45:00 AM EDT [facility] Patient admitted. Office Visit Attender: Jeni SOUSA PA-C Physical Therapy 12/20/2019 01:00:00 PM EDT [facility] ([facility]) Outpatient CPSCAORT-LABEJN 12/20/2019 10:01:00 AM EDT [facility] Office Visit Attender: Jeni SOUSA PA-C Physical Therapy 12/05/2019 10:45:00 AM EDT [facility] ([facility]) OFFICE OUTPATIENT NEW 30 MINUTES Attender: Jeni SOUSA PA-C Physical Therapy 11/27/2019 03:15:00 PM EDT [facility] ([facility]) Outpatient CPSCAORT-LABEJN 11/27/2019 09:47:00 AM EDT [facility] Inpatient Attender: Virgil Yanes MD Attender: Virgil Yanes MDAdmitter: Virgil Yanes MD ED-MSP 11/20/2019 02:26:00 PM EDT - 12/25/2019 10:00:00 AM EDT PT OT [facility] PT OT Patient discharged. Recurring Patient Referrer: DELON ELIZALDE MD 0 09:43:56 AM EDT [facility] Inpatient Attender: Masood Richardson MDAtt karl: DENNIS LEGGETT MDAttender: ALEJANDRA CLARK MDAttender: SILVESTRE KENYON MDAttender: PETER ENAMORADOZAttender: PETER ENAMORADOZAdmitter: SILVESTRE KENYON MDConsultant: Elsie Escobar MDConsultant: TAMIKO CARDENAS MDConsultant: DELON ELIZALDE MD [id number] 11/13 11:09:29 PM EDT - 11/20/2019 12:43:00 PM EDT [facility] Patient discharged. Inpatient Attender: Rita Royal MDAttender: Rita Royal MDAdmitter: Rita Royal MDConsultant: Rome Martínez JR CPSCAORT-MSU3 11/13/2019 11:48:00 PM EDT - 11/14/2019 07:45:00 PM EDT RIGHT TIB FX [facility] RIGHT TIB FX Patient discharged. Outpatient CPSCAORT-LABEJN 11/13/2019 08:53:00 PM EDT [facility] Emergency Attender: CECILE ESPINOZA ED-ED 11/12 06:44:00 PM EDT - 11/13/2019 10:57:00 PM EDT fall [facility] fall Patient discharged. Outpatient SJP-[email or web address].GVR 11/07/2019 12:00:00 AM EDT [facility] Outpatient Attender: Elsie Escobar MD Admitter: Elsie Escobar MDReferrer: Elsie Escobar MD [id number] 10/30/2019 06:18:00 AM EDT - 10/30/2019 10:30:00 AM EDT [facility] Patient discharged. Outpatient Attender: DREW ESCOBARConsultant: CHELSEA Varghese 10/25/2019 10:28:00 AM EDT - 10/25/2019 11:28:00 AM EDT [facility] Patient discharged. Outpatient BARBIEP-SJP 10/23/2019 01:13:55 PM EDT [facility] Outpatient SJP-SJP.GVR 10/17/2019 12:24 :18 PM EDT - 10/17/2019 01:12:39 PM EDT [facility] Outpatient Attender: SUDHAKAR CHAMBERS MD SJP-SJP.GVR 0 12:00:00 AM EDT - 10/14/2019 03:38:01 PM EDT [facility] Outpatient SJP-SJP.GVR 10/14/2019 12:00:00 AM EDT [facility] Outpatient Attender: MILA Bell RNPAttender: SELWYN TO IV ED-LABEDW 09/13/2019 08:18:00 AM EDT - 09/13/2019 08:19:00 AM EDT [facility] Patient discharged. Outpatient SJP-SJP 07/11/2019 03:50:07 PM EDT [facility] Outpatient Referrer: SUDHAKAR CHAMBERS MD [email or web address] 07/11/2019 12:00:00 AM EDT [facility] Medications Medication Brand Name Start Date Product Form Dose Route Admi nistrative Instructions Pharmacy Instructions Status Indications Reaction Description Data Source(s) 25 mg 02/24/2020 12:00:00 AM EST tablet 60 TAKE ONE TABLET BY MOUTH EVERY DAY TAKE ONE TABLET BY MOUTH EVERY DAY SOLD: 02/24/2020 [facility] 100 unit/mL 02/24/2020 12:00:00 AM EST insulin pen 30 INJECT UNDER THE SKIN PER LOW DOSE SLIDING SCALE: 70-150=0 UNITS, 151-200=1 UNIT, 201-250=3 UNITS, 251-300=5 UNITS, 301-350=7 UNITS, 351-400=9 UNITS, OVER 400= 12 UNITS INJECT UNDER THE SKIN PER LOW DOSE SLIDING SCALE: 70-150=0 UNITS, 151-200=1 UNIT, 201- 250=3 UNITS, 251-300=5 UNITS, 301-350=7 UNITS, 351-400=9 UNITS, OVER 400= 12 UNITS SOLD: 02/24/2020 [facility] 20 mg 02/24/2020 12:00:00 AM EST tablet 45 TAKE 1/2 TABLET BY MOUTH ONCE DAILY TAKE 1/2 TABLET BY MOUTH ONCE DAILY SOLD: 02/24/2020 [facility] 20 mg 02/24/2020 12:00:00 AM EST tablet 60 TAKE ONE TABLET BY MOUTH EVERY DAY TAKE ONE TABLET BY MOUTH EVERY DAY SOLD: 02/24/2020 [facility] 30 gauge x 3/16" 02/24/2020 12:00:00 AM EST needle 100 USE DIRECTED WITH INSULIN PEN USE DIRECTED WITH INSULIN PEN SOLD: 02/24/2020 [facility] 10 gram/15 mL 01/13/2020 12:00:00 AM EDT solution 2365 TAKE 30 ML BY MOUTH THREE TIMES A DAY TAKE 30 ML BY MOUTH THREE TIMES A DAY SOLD: 01/14/2020 [facility] torsemide 20 MG Oral Tablet torsemide (DEMADEX) 20 MG tablet torsemide (DEMADEX) 20 MG tablet 11/21/2019 12:00:00 AM EDT 20 mg Oral activ e Take 1 tablet (20 mg total) by mouth daily [facility] Multiple Vitamins-Iron (MULTIVITAMIN WITH IRON) TABS [id number] 11/21/2019 12:00:00 AM EDT 1 {tbl} Oral active Take 1 tablet by mouth daily [facility] Nadolol 20 MG Oral Tablet nadolol (CORGARD) 20 MG tabl et nadolol (CORGARD) 20 MG tablet 11/21/2019 12:00:00 AM EDT 10 mg Oral active Take 0.5 tablets (10 mg total) by mouth daily [facility] Acetaminophen 325 MG Oral Tablet acetaminophen (TYLENO L) 325 MG tablet acetaminophen (TYLENOL) 325 MG tablet 11/20/2019 12:00:00 AM EDT 65 0 mg Oral active Take 2 tablets (650 mg total) by mouth every 4 (four) hours as needed [facility] Insulin Glargine 100 UNT/ML Injectable S olution [Lantus] insulin glargine (LANTUS) 100 UNIT/ML injection insulin glargine (LANTUS) 100 UNIT/ML injection 11/20/2019 12:00:00 AM EDT 9 U Subcutaneous active Inject 9 Units under the skin nightly [facility] Acetaminophen 325 MG / Oxycodone Hydroch loride 5 MG Oral Tablet oxyCODONE- acetaminophen (PERCOCET) 5-325 MG per tablet oxyCODONE-acetaminophen (PERCOCET) 5-325 MG per tablet 11/20/2019 12:00:00 AM EDT 1 {tbl} Oral active Take 1 tablet by mouth every 6 (six) hours as needed Max Daily Amount: 4 tablets [facility] 20 mg 11/20/2019 12:00:00 AM EDT capsule,delayed release (DR/EC) 30 TAKE ONE CAPSULE BY MOUTH EVERY DAY TAKE ONE CAPSULE BY MOUTH EVERY DAY SOLD: 11/20/2019 [facility] potassium chloride SA (K-DUR,KLOR-CON) CR tablet 40 mEq [id number] 11/19/2019 11:00:00 AM EDT 40 meq Oral completed 40 mEq, Oral, Once, 11/19/19 at 1100, For 1 dose [facility] Medication administered onsite Insulin Glargine 100 UNT/ML Injectable S olution [Lantus] insulin glargine (LANTUS) injection 9 Units insulin glargine (LANTUS) injection 9 Units 11/16/2019 12:00:00 PM EDT 9 U Subcutaneous active 9 Units, Subcutaneous, Daily (Lantus), First dose on 11/16/19 at 1200
Basal Insulin (Lantus) Adjustments based on AM Blood GlucoseBlood GlucoseAdjustmentLess than 70 mg/dl Nursing to initiate hypoglycemia [id number] to 100 mg/dl Pharmacy to decrease total daily d ose by 20%101 to 200 mg/dl No Change
[facility] Medication administered onsite Nadolol 40 MG Oral Tablet nadolol (CORGARD) tablet 10 mg nadolol (CORGARD) tablet 10 mg 11/16/2019 09:00:00 AM EDT 10 mg Oral activ e 10 mg, Oral, Daily, First dose on 11/16/19 at 0900
Hold for systolic blood pressure less than 120 mmHg
[facility] Medication administered onsite Cholecalciferol 1000 UNT Oral Tablet Vit costello D (CHOLECALCIFEROL) tablet 2,000 Units Vitamin D (CHOLECALCIFEROL) tablet 2,000 Units 11/16/2019 09 :00:00 AM EDT 2000 U Oral active 2,000 Units, Ora l, Daily, First dose on 11/16/19 at 0900
25 mcg = 1000 units
[facility] Medication administered onsite multivitamin with iron 1 tablet [id number] 11/16/2019 09:00:00 AM EDT 1 {tbl} Oral active 1 tablet, Oral, Daily, First dose on 11/16/19 at 0900 [facility] Medication administered onsite torsemide 20 MG Oral Tablet torsemide (DEMADEX) tablet 20 mg torsemide (DEMADEX) tablet 20 mg 11/16/2019 09:00:00 AM EDT 20 mg Oral acti ve 20 mg, Oral, Daily, First dose on 11/16/19 at 0900 [facility] Medication administered onsite vancomycin (VANCOCIN) IVPB 1,000 mg [id number] 11/16/2019 07:00:0 0 AM EDT 1000 mg Intravenous aborted 1,000 mg , Intravenous, Administer over 1 Hours, Every 24 hours (relative), First dose on 11/16/19 at 0700 [facility] Medication administered onsite Acetaminophen 325 MG / Oxycodone Hydroch loride 5 MG Oral Tablet oxyCODONE- acetaminophen (PERCOCET) 5-325 MG 1 tablet oxyCODONE-acetaminophen (PERCOCET) 5- 325 MG 1 tablet 11/16/2019 05:39:43 AM EDT 1 {tbl} Oral c ompleted 1 tablet, Oral, Every 6 hours PRN, moderate pain (4-6), Starting 11/16/19 at 0539, For 2 days [facility] Medication administered onsite Insulin Glargine 100 UNT/ML Injectable S olution [Lantus] insulin glargine (LANTUS) injection 12 Units insulin glargine (LANTUS) injection 12 Units 11/15/2019 12:00:00 PM EDT 12 U Subcutaneous aborted 12 Units, Subcutaneous, Daily (Lantus), First dose on Mon11/15/19 at 1200
Basal Insulin (Lantus) Adjustments based on AM Blood GlucoseBlood GlucoseAdjustmentLess than 70 mg/dl Nursing to initiate hypoglycemia [id number] to 100 mg/dl Pharmacy to decrease total daily d ose by 20%101 to 200 mg/dl No Change
[facility] Medication administered onsite heparin (porcine) injection 5,000 Units [id number] 11/15/19 09:00:00 AM EDT 5000 U Subcutaneous active 5,000 Units , Subcutaneous, Every 12 hours (scheduled), First dose on Mon11/15/19 at 0900
If platelet count is less than 100,000 or hematocrit is less than 25, or if there is a 5 point decrease in hematocrit, do not give the dose and call physician/designee.
[facility] Medication administered onsite Spironolactone 25 MG Oral Tablet spironolactone (ALDAC TONE) tablet 50 mg spironolactone (ALDACTONE) tablet 50 mg 11/15/2019 09:00:00 AM EDT 50 mg Oral active 50 mg, Oral, Da theresa, First dose on Mon11/15/19 at 0900
For administration and preparation considerations, refer to Hazardous Drugs in the Workplace Policy on Intranet.
[facility] Medication administered onsite pantoprazole 40 MG Delayed Release Oral Tablet pantoprazole (PROTONIX) EC tablet 40 mg pantoprazole (PROTONIX) EC tablet 40 mg 11/15/2019 09:00:00 AM E DT 40 mg Oral active Gastroesophageal Reflux Diseas e 40 mg, Oral, Daily, Indications: Gastroesophageal Reflux Disease, First dose on Mon11/15/19 at 0900 [facility] Gastroesophageal Reflux Disease Medication administered onsite Lactulose 667 MG/ML Oral Solution lactul ose (CHRONULAC) 10 GM/15ML solution 20 g lactulose (CHRONULAC) 10 GM/15ML solution 20 g 11/15/2019 09:00: 00 AM EDT 20 g Oral active Hepatic Encephalopathy 20 g, Oral, TIDSS, First dose on Mon11/15/19 at 0900
Hold if more than 3 loose stools AND ammonia < 50
[facility] Hepatic Encephalopathy Medication administered onsite Furosemide 20 MG Oral Tablet furosemide (LASIX) tablet 20 mg furosemide (LASIX) tablet 20 mg 11/15/2019 09:00:00 AM EDT 20 mg Oral abort ed 20 mg, Oral, Every morning, First dose on Mon11/15/19 at 0900
Hold if SBP < 105 or DBP < 60 and call if held to discuss.Hold if Potassium < 3.2 and call to replete potassium prior to administration.
[facility] Medication administered onsite vancomycin in 500mL (VANCOCIN) IV 1,500 mg [id number] 11/15/2019 09:00:00 AM EDT 1500 mg Intravenous completed 1, 500 mg, Intravenous, Administer over 120 Minutes, Once, Mon11/15/19 at 0900, For 1 dose [facility] Medication administered onsite Insulin Lispro 100 UNT/ML Injectable Skylar ution insulin lispro (HumaLOG) injection 1-8 Units insulin lispro (HumaLOG) injection 1-8 Units 0 08:00:00 AM EDT Subcutaneous active 1-8 Units, Subcutaneous, MEALSS, First dose on Mon11/15/19 at 0800
4 units Nutritional and Correction Insulin ScaleBlood Glucose (mg/dl) <70 start hypoglycemiaprotocolGlucoseEats >=50% Eats <50%Eats Nothing (mg/dl) of meal of mealor NPO70- 1203 units 1 units 0 -2890 units 2 units 0 tshxu132- 2205 units 3 units 1 [id number] units 3 units 1 bobay711- 3206 units 4 units 2 [id number] units 5 units 3 -3448 units 5 units 3 units>420 call MD8 units 6 units 4 unitsTest glucose within 30 minutes of insulin administration.Administer insulin within 15 minutes (before or after) of the patient starting to eat.For patients that are NPO, use theNPO (correction) scale to cover POC glucose at 08:00, 12:00, 17:00.
[facility] Medication administered onsite normal saline flush 0.9 % injection 3 mL [id number] 11/15/2019 06:00:00 AM EDT 3 mL Intravenous active 3 mL , Intravenous, PROTOCOL, First dose on Mon11/15/19 at 0600
flush per protocol, D/C Main IV fluid if appropriate
[facility] Medication administered onsite piperacillin-tazobactam (ZOSYN) 3.375 g in sodium chloride (NS) 0.9 % 100 mL IV pigtail 11/15/2019 04:00:00 AM EDT 3.375 g Intravenous completed Skin and Soft Tissue Infection 3.375 g, Intravenous, Admini ster over 30 Minutes, Every 6 hours (relative), First dose on Mon11/15/19 at 0400, For 5 days [facility] Skin and Soft Tissue Infection Medication administered onsite sodium chloride 0.45% (HALF SALINE) infusion [id number] 11/15/2019 12:00:00 AM EDT Intravenous aborted at 6 0 mL/hr, Intravenous, Continuous, Starting Mon11/15/19 at 0000 [facility] Medication administered onsite Albuterol 0.83 MG/ML Inhalant Solution a lbuterol (PROVENTIL) nebulizer solution 2.5 mg albuterol (PROVENTIL) nebulizer solution 2.5 mg 2019 11:27:16 PM EDT 2.5 mg active 2.5 mg, Nebulization, RT every 4 hours as needed, shortness of breath, once COVID negative then begin PRN dyspnea, Starting Kandi 11/14/19 at 2327 [facility] Medication administered onsite Acetaminophen 325 MG Oral Tablet acetaminophen (TYLENO L) 325 MG tablet 650 mg acetaminophen (TYLENOL) 325 MG tablet 650 mg 11/14/2019 11:18:30 PM EDT 650 mg Oral active 650 mg, Or al, Every 4 hours PRN, mild pain (1-3), headaches, Starting Kandi 11/14/19 at 2318
"Maximum dose of acetaminophen is 4,000 mg from all sources in 24 hours."
[facility] Medication administered onsite sodium chloride (PF) (NS) 0.9 % flush 3 mL 11/14/2019 11:1 6:19 PM EDT 3 mL Intravenous active [Order 1 Star t] Name: Maintain 2nd IV Access Signed Summary: Routine, Until discontinued, Starting Kandi 11/14/19 at 2317, Until Specified [Order 1 End] [Order 2 Start] Name: sodium chloride (PF) (NS) 0.9 % flush 3 mL Signed Summary: 3 mL, Intravenous, As needed, line care, Starting Kandi 11/14/19 at 2316
2nd IV
[Order 2 End] [facility] Medication administered onsite 250 mg 11/09/2019 12:00:00 AM EDT capsule 28 TAKE ONE CAPSULE BY MOUTH FOUR TIMES A DAY FOR 7 DAYS TAKE ONE CAPSULE BY MOUTH FOUR TIMES A DAY FOR 7 DAYS SOLD: 11/09/2019 [facility] lidocaine (PF) (XYLOCAINE-MPF) 1 % injection [id number] 07/2019 07:55:03 AM EDT active As needed, Start ing Mon10/30/19 at 0755, Intra-Procedure [facility] Medication administered onsite fentaNYL Citrate (PF) (SUBLIMAZE) injection [id number] 10/30/2019 07:50:52 AM EDT active As neede d, Starting Mon10/30/19 at 0750, Intra-Procedure [facility] Medication administered onsite 2 ML Midazolam 1 MG/ML Injection midazolam (VERSED) in jection midazolam (VERSED) injection 10/30/2019 07:50:42 AM EDT active As needed, Starting Mon10/30/19 at 0750, IntraProcedure [facility] Medication administered onsite Cefazolin 1000 MG Injection ceFAZolin (ANCEF) injectio n ceFAZolin (ANCEF) injection 10/30/2019 07:37:19 AM EDT active As needed, Starting Mon10/30/19 at 0737, Intra-Procedure [facility] Medication administered onsite 50 mg 10/22/2019 12:00:00 AM EDT tablet 30 TAKE ONE TABLET BY MOUTH EVERY DAY WITH FOOD TAKE ONE TABLET BY MOUTH EVERY DAY WITH FOOD SOLD: 11/25/2019 [facility] 50 mg 10/22/2019 12:00:00 AM EDT tablet 30 TAKE ONE TABLET BY MOUTH EVERY DAY WITH FOOD TAKE ONE TABLET BY MOUTH EVERY DAY WITH FOOD SOLD: 10/22/2019 [facility] Lactulose 667 MG/ML Oral Solution Lactulose Encephalop athy 10 GM/15ML SOLN Lactulose Encephalopathy 10 GM/15ML SOLN 09/09/2019 12:00:00 AM EDT Oral active Hepatic Encephalopathy Take by mouth 3 (t hree) times a day [facility] Hepatic Encephalopathy 20 mg 09/04/2019 12:00:00 AM EDT tablet 30 TAKE ONE TABLET BY MOUTH EVERY DAY TAKE ONE TABLET BY MOUTH EVERY DAY SOLD: 10/22/2019 [facility] 20 mg 09/04/2019 12:00:00 AM EDT tablet 30 TAKE ONE TABLET BY MOUTH EVERY DAY TAKE ONE TABLET BY MOUTH EVERY DAY SOLD: 11/25/2019 [facility] 20 mg 09/04/2019 12:00:00 AM EDT tablet 30 TAKE ONE TABLET BY MOUTH EVERY DAY TAKE ONE TABLET BY MOUTH EVERY DAY SOLD: 09/05/2019 [facility] 100 unit/mL (3 mL) 07/08/2019 12:00:00 AM EDT insulin pen 15 INJECT 32 UNITS UNDER THE SKIN ONCE DAILY AT NOON INJECT 32 UNITS UNDER THE SKIN ONCE ANIBAL Y AT NOON SOLD: 10/28/2019 [facility] 100 unit/mL (3 mL) 07/08/2019 12:00:00 AM EDT insulin pen 15 INJECT 32 UNITS UNDER THE SKIN ONCE DAILY AT NOON INJECT 32 UNITS UNDER THE SKIN ONCE ANIBAL Y AT NOON SOLD: 09/10/2019 [facility] 100 unit/mL (3 mL) 07/08/2019 12:00:00 AM EDT insulin pen 15 INJECT 32 UNITS UNDER THE SKIN ONCE DAILY AT NOON INJECT 32 UNITS UNDER THE SKIN ONCE ANIBAL Y AT NOON SOLD: 07/08/2019 [facility] 50 mg 06/19/2019 12:00:00 AM EDT tablet 30 TAKE ONE TABLET BY MOUTH EVERY DAY WITH FOOD TAKE ONE TABLET BY MOUTH EVERY DAY WITH FOOD SOLD: 06/21/2019 [facility] 50 mg 06/19/2019 12:00:00 AM EDT tablet 30 TAKE ONE TABLET BY MOUTH EVERY DAY WITH FOOD TAKE ONE TABLET BY MOUTH EVERY DAY WITH FOOD SOLD: 07/22/2019 [facility] 50 mg 06/19/2019 12:00:00 AM EDT tablet 30 TAKE ONE TABLET BY MOUTH EVERY DAY WITH FOOD TAKE ONE TABLET BY MOUTH EVERY DAY WITH FOOD SOLD: 08/22/2019 [facility] 50 mg 06/19/2019 12:00:00 AM EDT tablet 30 TAKE ONE TABLET BY MOUTH EVERY DAY WITH FOOD TAKE ONE TABLET BY MOUTH EVERY DAY WITH FOOD SOLD: 09/22/2019 [facility] 5 mg 06/18/2019 12:00:00 AM EDT tablet extended release 24hr 90 TAKE ONE TABLET BY MOUTH EVERY DAY TAKE ONE TABLET BY MOUTH EVERY DAY SOLD: 12/16/2019 [facility] 5 mg 06/18/2019 12:00:00 AM EDT tablet extended release 24hr 90 TAKE ONE TABLET BY MOUTH EVERY DAY TAKE ONE TABLET BY MOUTH EVERY DAY SOLD: 06/18/2019 [facility] 50 mg 12/19/2018 12:00:00 AM EDT tablet 30 TAKE ONE TABLET BY MOUTH EVERY DAY WITH FOOD TAKE ONE TABLET BY MOUTH EVERY DAY WITH FOOD SOLD: 03/23/2019 [facility] 50 mg 12/19/2018 12:00:00 AM EDT tablet 30 TAKE ONE TABLET BY MOUTH EVERY DAY WITH FOOD TAKE ONE TABLET BY MOUTH EVERY DAY WITH FOOD SOLD: 05/22/2019 [facility] 50 mg 12/19/2018 12:00:00 AM EDT tablet 30 TAKE ONE TABLET BY MOUTH EVERY DAY WITH FOOD TAKE ONE TABLET BY MOUTH EVERY DAY WITH FOOD SOLD: 04/23/2019 [facility] 50 mg 12/19/2018 12:00:00 AM EDT tablet 30 TAKE ONE TABLET BY MOUTH EVERY DAY WITH FOOD TAKE ONE TABLET BY MOUTH EVERY DAY WITH FOOD SOLD: 02/23/2019 [facility] 10 gram/15 mL 11/22/2018 12:00:00 AM EDT solution 2838 TAKE 30 ML BY MOUTH THREE TIMES A DAY TAKE 30 ML BY MOUTH THREE TIMES A DAY SOLD: 07/22/2019 [facility] 10 gram/15 mL 11/22/2018 12:00:00 AM EDT solution 2838 TAKE 30 ML BY MOUTH THREE TIMES A DAY TAKE 30 ML BY MOUTH THREE TIMES A DAY SOLD: 05/22/2019 [facility] 10 gram/15 mL 11/22/2018 12:00:00 AM EDT solution 2838 TAKE 30 ML BY MOUTH THREE TIMES A DAY TAKE 30 ML BY MOUTH THREE TIMES A DAY SOLD: 09/10/2019 [facility] 10 gram/15 mL 11/22/2018 12:00:00 AM EDT solution 2838 TAKE 30 ML BY MOUTH THREE TIMES A DAY TAKE 30 ML BY MOUTH THREE TIMES A DAY SOLD: 03/23/2019 [facility] 100 unit/mL (3 mL) 09/25/2018 12:00:00 AM EDT insulin pen 15 INJECT 32 UNITS SUBCUTANEOUSLY DAILY AT NOON INJECT 32 UNITS SUBCUTANEOUSLY DAILY AT NOON SOLD: 03/01/2019 [facility] 100 unit/mL (3 mL) 09/25/2018 12:00:00 AM EDT insulin pen 15 INJECT 32 UNITS SUBCUTANEOUSLY DAILY AT NOON INJECT 32 UNITS SUBCUTANEOUSLY DAILY AT NOON SOLD: 06/03/2019 [facility] 100 unit/mL (3 mL) 09/25/2018 12:00:00 AM EDT insulin pen 15 INJECT 32 UNITS SUBCUTANEOUSLY DAILY AT NOON INJECT 32 UNITS SUBCUTANEOUSLY DAILY AT NOON SOLD: 04/18/2019 [facility] 32 gauge x 5/32" 09/13/2018 12:00:00 AM EDT needle 100 USE 3 TIMES A DAY AND NEEDED USE 3 TIMES A DAY AND NEEDED SOLD: 09/10/2019 [facility] 32 gauge x 5/32" 09/13/2018 12:00:00 AM EDT needle 100 USE 3 TIMES A DAY AND NEEDED USE 3 TIMES A DAY AND NEEDED SOLD: 07/08/2019 [facility] 20 mg 09/13/2018 12:00:00 AM EDT capsule,delayed release (DR/EC) 90 TAKE 1 CAPSULE BY MOUTH EVERY DAY TAKE 1 CAPSULE BY MOUTH EVERY DAY SOLD: 09/02/2019 [facility] 20 mg 09/13/2018 12:00:00 AM EDT capsule,delayed release (DR/EC) 90 TAKE 1 CAPSULE BY MOUTH EVERY DAY TAKE 1 CAPSULE BY MOUTH EVERY DAY SOLD: 03/11/2019 [facility] 20 mg 09/13/2018 12:00:00 AM EDT capsule,delayed release (DR/EC) 90 TAKE 1 CAPSULE BY MOUTH EVERY DAY TAKE 1 CAPSULE BY MOUTH EVERY DAY SOLD: 06/05/2019 [facility] 32 gauge x 5/32" 09/13/2018 12:00:00 AM EDT needle 100 USE 3 TIMES A DAY AND NEEDED USE 3 TIMES A DAY AND NEEDED SOLD: 04/18/2019 [facility] 20 mg 08/22/2018 12:00:00 AM EDT tablet 30 TAKE ONE TABLET BY MOUTH EVERY DAY TAKE ONE TABLET BY MOUTH EVERY DAY SOLD: 08/01/2019 [facility] 5 mg 07/01/2018 12:00:00 AM EDT tablet extended release 24hr 90 TAKE ONE TABLET BY MOUTH EVERY DAY TAKE ONE TABLET BY MOUTH EVERY DAY SOLD: 03/11/2019 [facility] Furosemide 20 MG Oral Tablet furosemide (LASIX) 20 MG tablet furosemide (LASIX) 20 MG tablet aborted FUROSEMIDE 20 MG TABS [facility] Insulin Glargine 100 UNT/ML Injectable S olution insulin glargine (LANTUS) 100 UNIT/ML injection insulin glargine (LANTUS) 100 UNIT/ML injection 32 U Subcutaneous aborted Inject 32 Units u nder the skin daily @ 1200 [facility] Insurance Providers Payer name Policy type / Coverage type Policy ID Covered constitution party ID Covered constitution party's relationship to pacheco Policy [place] Plan Information MEDICARE [id number] SP [id number] [employer] HE[employer] C[employer] OPTIONS [id number] SP [id number] [employer] HE[employer] C[employer] OPTIONS -O/P [id number] 18 [id number] MEDICARE PART A -O/P [id number] 18 [id number] MEDICARE PART A -O/P [id number] 18 [id number] MEDICARE C [id number] S [id number] [id number] AARP O [id number] S [id number] MEDICARE [id number] S [id number] [employer]ARP [employer] C[employer] OPTIONS [id number] S [id number] MEDICARE [id number] S [id number] AARP HEALTH CARE OPTIONS [id number] S [id number] [facility] AARP Supplemental F [id number] SELF [id number] Medicare C [id number] SELF [id number] [id number] INSURANCE COVID-19 COVID Aure C OVID MEDICARE [id number] Arue [id number] [id number] [facility] [id number] Aure [id number] AARP INSURANCE [id number] MEDICARE [id number] SP [id number] D INSURANCE COVID-19 [id number] [facility] [id number] MEDICARE [id number] MEDICARE [id number] S [id number] [id number] MEDICARE [id number] S [id number] MEDICARE [id number] S [id number] FINANCIAL ASSISTANCE [id number] S [id number] [employer] MEDICARE [id number] S [id number] MEDICARE [id number] Aure [id number] D MEDICARE [id number] S [id number] D Aar Medigap Part B [id number] Self [id number] [place] Medicare Primary [id number] Self [id number] MEDICARE C [id number] S [id number] D Aar Medigap Part B [id number] Self [id number] [place] Medicare Primary [id number] Self [id number] [facility] MEDICARE ADVANTAGE [id number] 18 [id number] [facility] HEALTH CARE OPTIONS -O/P [id number] 18 [id number] [facility] [id number] 18 [id number] [facility] [id number] 18 [id number] [facility] [id number] 18 [id number] [facility] -SW[facility] [id number] 18 [id number] MEDICARE -SWING BED [id number] 18 [id number] MEDICARE -O/P [id number] 18 [id number] Problems, Conditions, and Diagnoses Code Display Name Description Problem Type Effective Dates Data Source(s) W19.XXXA Fall Fall [id number] 11/15/2019 12:00:00 AM ED T [facility] S00.10XA Periorbital ecchymoses Periorbital ecchymoses [id number] 11/15/2019 12:00:00 AM EDT [facility] S01.81XA Laceration of brow without complication, left - sutures 11/13/2019 Laceration of brow without complication, left - sutures 11/13/2019 [id number] 11/15/2019 12:00:00 AM EDT [facility] D62 Acute blood loss anemia Acute blood loss anemia 415313 01 11/15/2019 12:00:00 AM EDT [facility] T82.110A Pacemaker RV lead malfunction reported P cordellker RV lead malfunction reported [id number] 11/15/2019 12:00:00 AM EDT [facility] S82.201A Closed right tibial fracture Closed right tibial fract ure [id number] 11/15/2019 12:00:00 AM EDT [facility] R79.1 Elevated INR 1.4-1.7 Elevated INR 1.4-1.7 [id number] 11/15/2019 12:00:00 AM EDT [facility] T82.7XXA Infection of pacemaker pocket Infection of pacemaker p ocket [id number] 11/14/2019 12:00:00 AM EDT [facility] Z45.010 Encounter for pacemaker at end of batter y life 10/24/2019 Encounter for pacemaker at end of battery life 10/24/2019 [id number] 10/24/2019 12:00: 00 AM EDT [facility] I49.5 Sinoatrial node dysfunction Sinoatrial node dysfunctio n [id number] 10/11/2019 12:00:00 AM EDT [facility] E11.9 Diabetes mellitus, type II Diabetes mellitus, type II [id number] 10/11/2019 12:00:00 AM EDT [facility] I35.9 Aortic valve disease Aortic valve disease [id number] 10/11/2019 12:00:00 AM EDT [facility] R60.9 Edema Edema [id number] 10/11/2019 12:00:00 AM ED T [facility] I10 Benign essential hypertension Benign essential hyperte nsion [id number] 10/11/2019 12:00:00 AM EDT [facility] M19.90 Arthritis Arthritis [id number] 10/11/2019 12:00:00 AM ED T [facility] Z1152 Invalid ICD10 Description Invalid ICD10 Description Di agnosis 04/06/2020 04:58:00 PM EST [facility] R35.0 Frequency of micturition FREQUENCY OF MICTURITION Diag nosis 02/21/2020 09:48:00 AM EST [facility] R60.9 Edema, unspecified EDEMA, UNSPECIFIED Diagnosis [facility] Pain in right lower leg PAIN IN RIGHT LOWER LEG Diagno sis 01/03/2020 02:26:00 PM [facility] Y92.[address] or not applicable UNSPECIFIED PLACE OR NOT APPLICABLE Diagnosis 11/20/2019 02:26:00 PM [facility] W19.XXXD Unspecified fall, subsequent encounter U NSPECIFIED FALL, SUBSEQUENT ENCOUNTER Diagnosis 11/20/2019 02:26:00 PM [facility] spital I11.0 Hypertensive heart disease with heart fa ilure HYPERTENSIVE HEART DISEASE WITH HEART FAILURE Diagnosis 11/20/2019 02:26:00 PM [facility] spital K59.00 Constipation, unspecified CONSTIPATION, UNSPECIFIED Di agnosis 11/20/2019 02:26:00 PM [facility] D50.9 Iron deficiency anemia, unspecified IRON DEFICIE NCY ANEMIA, UNSPECIFIED Diagnosis 11/20/2019 02:26:00 PM [facility] K74.69 Other cirrhosis of liver OTHER CIRRHOSIS OF LIVER Diag nosis 11/20/2019 02:26:00 PM [facility] I35.9 Nonrheumatic aortic valve disorder, unsp ecified NONRHEUMATIC AORTIC VALVE DISORDER, UNSPECIFIED Diagnosis 11/20/2019 02:26:00 PM [facility] 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 Z87.891 Personal history of nicotine dependence PERSONAL HISTORY OF NICOTINE DEPENDENCE Diagnosis 11/20/2019 02:26:00 PM [facility] yeseniatal J45.909 Unspecified asthma, uncomplicated UNSPECIFIED THMA, UNCOMPLICATED Diagnosis 11/20/2019 02:26:00 PM [facility] E11.9 Type 2 diabetes mellitus without complic ations TYPE 2 DIABETES MELLITUS WITHOUT COMPLICATIONS Diagnosis 11/20/2019 02:26:00 PM [facility] K21.9 Gastro-esophageal reflux disease without esophagitis GASTRO-ESOPHAGEAL REFLUX DISEASE WITHOUT ESOPHAGITIS Diagnosis 11/20/2019 02:26:00 PM ED [facility] Z95.0 Presence of cardiac pacemaker PRESENCE OF CARDIAC PACE MAKER Diagnosis 11/20/2019 02:26:00 PM EDT [facility] R18.8 Other ascites OTHER ASCITES Diagnosis 11/20/2019 02:26:00 PM [facility] I50.30 Unspecified diastolic (congestive) heart failure UNSPECIFIED DIASTOLIC (CONGESTIVE) HEART FAILURE Diagnosis 11/20/2019 02:26:00 PM EDT [facility] S82.101D Unspecified fracture of uppe r end of right tibia, subsequent encounter for closed fracture with routine healing UNSP FX UPPER END OF R TIBIA, SUBS FOR CLOS FX W ROUTN HEAL Diagnosis 11/20/2019 02:26:00 PM EDT [facility] ospital T82.110A Breakdown (mechanical) of cardiac electr ode, initial encounter Breakdown (mechanical) of cardiac electr Diagnosis 11/14/2019 11:09:29 PM EDT [facility] Y92.[address] in unspeci fied non-institutional (private) residence as the place of occurrence of the external cause UNSP PLACE IN UNSP NON-INSTITUT (PRIVATE) RESIDENCE PLACE Diagnosis 11/13/2019 11:48:00 PM EDT [facility] Y83.8 Other surgical procedures as the cause of abnormal reaction of the patient, or of later complication, without mention of misadventure at the time of the procedure [facility] SURGICAL PROCEDURES CAUSE ABN REACT/COMPL, W/O MIS ADVNT Diagnosis 11/13/2019 11:48:00 PM EDT [facility] K21.9 Gastro-esophageal reflux disease without esophagitis GASTRO-ESOPHAGEAL REFLUX DISEASE WITHOUT ESOPHAGITIS Diagnosis 11/13/2019 11:48:00 PM ED [facility] K72.90 Hepatic failure, unspecified without com a HEPATIC FAILURE, UNSPECIFIED WITHOUT COMA Diagnosis 11/13/2019 11:48:00 PM EDT [facility] Z79.4 retirement (current) use of insulin [employer] (CU RRENT) USE OF INSULIN Diagnosis 11/13/2019 11:48:00 PM EDT [facility] N18.3 Chronic kidney disease, stage 3 (moderat e) CHRONIC KIDNEY DISEASE, STAGE 3 (MODERATE) Diagnosis 11/13/2019 11:48:00 PM EDT [facility] E11.22 Type 2 diabetes mellitus with diabetic c hronic kidney disease TYPE 2 DIABETES MELLITUS W DIABETIC CHRONIC KIDNEY DISEASE Diagnosis 11:48:00 PM [facility] I95.9 Hypotension, unspecified HYPOTENSION, UNSPECIFIED Diag nosis 11/13/2019 11:48:00 PM EDT [facility] K74.60 Unspecified cirrhosis of liver UNSPECIFIED CIRRHOSIS O F LIVER Diagnosis 11/13/2019 11:48:00 PM EDT [facility] F03.90 Unspecified dementia without behavioral disturbance UNSPECIFIED DEMENTIA WITHOUT BEHAVIORAL DISTURBANCE Diagnosis 11/13/2019 11:48:[address] [facility] Z87.891 Personal history of nicotine dependence PERSONAL HISTORY OF NICOTINE DEPENDENCE Diagnosis 11/13/2019 11:48:00 PM T [facility] W18.39XA Other fall on same level, initial encoun ter OTHER FALL ON SAME LEVEL, INITIAL ENCOUNTER Diagnosis 11/13/2019 11:48:00 PM [facility] T82.897A Other specified complication of cardiac prosthetic devices, implants and grafts, initial encounter OTH COMPLICATION OF CARDIAC PROSTH DEV/GRFT, INIT Diagnosis 11/13/2019 11:48:00 PM [facility] J90 Pleural effusion, not elsewhere classifi ed PLEURAL EFFUSION, NOT ELSEWHERE CLASSIFIED Diagnosis 11/13/2019 11:48:00 PM [facility] D62 Acute posthemorrhagic anemia ACUTE POSTHEMORRHAGIC ANE JUAN JOSÉ Diagnosis 11/13/2019 11:48:00 PM [facility] N17.9 Acute kidney failure, unspecified ACUTE KIDNEY F AILURE, UNSPECIFIED Diagnosis 11/13/2019 11:48:00 PM [facility] S82.101A Unspecified fracture of uppe r end of right tibia, initial encounter for closed fracture UNSP FRACTURE OF UPPER END OF RIGHT TIBIA, INIT FOR CL OS FX Diagnosis 11/13/2019 11:48:00 PM [facility] T82.7XXA Infection and inflammatory r eaction due to other cardiac and vascular devices, implants and grafts, initial encounter INFECT/INFLM REACT D/T OTH CARDI/VASC DEV/IMPLNT/GRFT, INIT Diagnosis 11/13/2019 11:48:00 PM EDT [facility] Z45.010 Encounter for checking and t esting of cardiac pacemaker pulse generator [battery] Encounter for checking and testing of ca Diagnosis 10/30/2019 06:18:00 AM EDT [facility] Z950 Presence of cardiac pacemaker Presence of cardiac pace maker Diagnosis 10/25/2019 10:28:00 AM EDT [facility] I495 Sick sinus syndrome Sick sinus syndrome Diagnosis 0 10/25/2019 10:28:00 AM EDT [facility] Z1159 Encounter for screening for other viral diseases Encounter for screening for other viral diseases Diagnosis 10/25/2019 10:28:00 AM EDT [facility] K74.60 Unspecified cirrhosis of liver Unspecified cirrhosis o f liver Diagnosis 10/14/2019 10:18:41 AM EDT [facility] Z95.0 Presence of cardiac pacemaker Presence of cardiac pace maker Diagnosis 10/14/2019 10:18:41 AM EDT [facility] I10 Essential (primary) hypertension Essential (primary) h ypertension Diagnosis 10/14/2019 10:18:41 AM EDT [facility] M19.90 Unspecified osteoarthritis, unspecified site Unspecified osteoarthritis, unspecified Diagnosis 10/14/2019 10:18:41 AM EDT [facility] I49.5 Sick sinus syndrome Sick sinus syndrome Diagnosis 0 10/14/2019 10:18:41 AM EDT [facility] R06.02 Shortness of breath Shortness of breath Diagnosis 0 10/14/2019 10:18:41 AM EDT [facility] I35.9 Nonrheumatic aortic valve disorder, unsp ecified Nonrheumatic aortic valve disorder, unsp Diagnosis 10/14/2019 10:18:41 AM EDT [facility] E11.65 Type 2 diabetes mellitus with hyperglyce juan josé TYPE 2 DIABETES MELLITUS WITH HYPERGLYCEMIA Diagnosis 09/13/2019 08:18:00 AM [facility]ital E78.00 Pure hypercholesterolemia, unspecified P URE HYPERCHOLESTEROLEMIA, UNSPECIFIED Diagnosis 09/13/2019 08:18:00 AM EDT [facility] spital I10 Essential (primary) hypertension ESSENTIAL (PRIMARY) H YPERTENSION Diagnosis 09/13/2019 08:18:00 AM [facility] Surgeries/Procedures Procedure Description Date Indications Data Source(s) REVJ TOT HIP ARTHRP FEM ONLY W/WO ALGRFT 03/21/2020 12 :00:00 AM EST [facility] ([facility] ) OPTX FEM FX PROX END NCK INT FIXJ/PROSTC RPLCMT 2019 12:00:00 AM EST [facility] ([facility]) OPTX FEM FX PROX END NCK INT FIXJ/PROSTC RPLCMT 2019 12:00:00 AM EST [facility] ([facility]) RADIOLOGIC EXAMINATION KNEE 1/2 VIEWS 02/24/2020 12:00 :00 AM EST [facility] ([facility]) ARTHROCENTESIS ASPIR&/INJECTION MAJOR JT/BURSA 020 12:00:00 AM EST [facility] ([facility]) RADIOLOGIC EXAMINATION KNEE 1/2 VIEWS 01/31/2020 12:00 :00 AM EST [facility] ([facility]) DUP-SCAN XTR VEINS UNILATERAL/LIMITED STUDY EXTREMITY STUDY 01/03/2020 12:00:00 AM [facility] COLLECTION VENOUS BLOOD VENIPUNCTURE 12/26/2019 12:00: 00 AM [facility] BLOOD COUNT COMPLETE AUTO&AUTO DIFRNTL WBC COUNT 12/25 12:00:00 AM [facility] HEMOGLOBIN GLYCOSYLATED A1C 12/26/2019 12:00:00 AM [facility] BILIRUBIN DIRECT 12/26/2019 12:00:00 AM [facility] COMPREHENSIVE METABOLIC PANEL 12/26/2019 12:00:00 AM E [facility] RADIOLOGIC EXAMINATION KNEE 1/2 VIEWS 12/20/2019 12:00 :00 AM T [facility] ([facility]) Apply Cast Long Leg 12/05/2019 12:00:[address] [facility] ([facility]) RADIOLOGIC EXAMINATION KNEE 1/2 VIEWS 12/05/2019 12:00 :00 AM EDT [facility] ([facility] ) CLTX TIBIAL SHAFT FX W/O MANIPULATION 11/27/2019 12:00 :00 AM EDT [facility] ([facility] ) RADIOLOGIC EXAMINATION KNEE 1/2 VIEWS 11/27/2019 12:00 :00 AM EDT [facility] ([facility] ) FX Tibia Proximal W/O Manipulation 11/27/2019 12:00:00 AM EDT [facility] ([facility] ) Transfer Training Treatment TRANSFER TRAINING TREATMENT 10/26 12:00:00 AM [facility] Therapeutic Exercise Treatment of Musculoskeletal Syst em - Whole Body THERAPEUTIC EXERCISE TREATMENT OF MUSCULOSK WHOLE 11/21/2019 12:00:00 AM [facility] Range of Motion and Joint Mobility Treat ment of Musculoskeletal System - Whole Body ROM & JT MOBILITY TREATMENT OF MUSCULOSK WHOLE 11/21/2019 12 :00:00 AM [facility] Gait Training/Functional Ambulation Treatment GAIT TRA INING/FUNCTIONAL AMBULATION TREATMENT 11/21/2019 12:00:[address] [facility] Bed Mobility Treatment BED MOBILITY TREATMENT 11/21/2019 12:00:00 A M [facility] GLUC BLD GLUC MNTR DEV CLEARED FDA SPEC HOME USE POCT GLUCOSE Routine 11/20/2019 9:18 AM EDT 11/20/2019 01:18:00 PM EDT [facility] BLOOD COUNT COMPLETE AUTOMATED CBC Routine 11/20/2019 4:38 A M EDT 11/20/2019 08:38:00 AM EDT [facility] BASIC METABOLIC PANEL CALCIUM TOTAL BASIC METABOLIC PANEL Routi ne 11/20/2019 4:38 AM EDT 11/20/2019 08:38:00 AM EDT [facility] GLUC BLD GLUC MNTR DEV CLEARED FDA SPEC HOME USE POCT GLUCOSE Routine 11/19/2019 5:57 PM EDT 11/19/2019 09:57:00 PM EDT [facility] 2019 NCOV AMPLIFIED 2019 NCOV AMPLIFIED STAT 11/19/2019 1:53 PM EDT 11/19/2019 05:53:00 PM EDT [facility] GLUC BLD GLUC MNTR DEV CLEARED FDA SPEC HOME USE POCT GLUCOSE Routine 11/19/2019 9:26 AM EDT 11/19/2019 01:26:00 PM EDT [facility] BLOOD COUNT COMPLETE AUTOMATED CBC Routine 11/19/2019 6:24 A M EDT 11/19/2019 10:24:00 AM EDT [facility] BASIC METABOLIC PANEL CALCIUM TOTAL BASIC METABOLIC PANEL Routi ne 11/19/2019 6:24 AM EDT 11/19/2019 10:24:00 AM EDT [facility] GLUC BLD GLUC MNTR DEV CLEARED FDA SPEC HOME USE POCT GLUCOSE Routine 11/18/2019 6:07 PM EDT 11/18/2019 10:07:00 PM EDT [facility] GLUC BLD GLUC MNTR DEV CLEARED FDA SPEC HOME USE POCT GLUCOSE Routine 11/18/2019 9:40 AM EDT 11/18/2019 01:40:00 PM EDT [facility] GLUC BLD GLUC MNTR DEV CLEARED FDA SPEC HOME USE POCT GLUCOSE Routine 11/18/2019 9:36 AM EDT 11/18/2019 01:36:00 PM EDT [facility] BLOOD COUNT COMPLETE AUTOMATED CBC Routine 11/18/2019 4:34 A M EDT 11/18/2019 08:34:00 AM EDT [facility] BASIC METABOLIC PANEL CALCIUM TOTAL BASIC METABOLIC PANEL Routi ne 11/18/2019 4:34 AM EDT 11/18/2019 08:34:00 AM EDT [facility] GLUC BLD GLUC MNTR DEV CLEARED FDA SPEC HOME USE POCT GLUCOSE Routine 11/17/2019 5:08 PM EDT 11/17/2019 09:08:00 PM EDT [facility] GLUC BLD GLUC MNTR DEV CLEARED FDA SPEC HOME USE POCT GLUCOSE Routine 11/17/2019 1:14 PM EDT 11/17/2019 05:14:00 PM EDT [facility] GLUC BLD GLUC MNTR DEV CLEARED FDA SPEC HOME USE POCT GLUCOSE Routine 11/17/2019 8:55 AM EDT 11/17/2019 12:55:00 PM EDT [facility] BLOOD COUNT COMPLETE AUTOMATED CBC Routine 11/17/2019 4:38 A M EDT 11/17/2019 08:38:00 AM EDT [facility] BASIC METABOLIC PANEL CALCIUM TOTAL BASIC METABOLIC PANEL Routi ne 11/17/2019 4:38 AM EDT 11/17/2019 08:38:00 AM EDT [facility] GLUC BLD GLUC MNTR DEV CLEARED FDA SPEC HOME USE POCT GLUCOSE Routine 11/16/2019 5:46 PM EDT 11/16/2019 09:46:00 PM EDT [facility] GLUC BLD GLUC MNTR DEV CLEARED FDA SPEC HOME USE POCT GLUCOSE Routine 11/16/2019 3:14 PM EDT 11/16/2019 07:14:00 PM EDT [facility] WOUND OSTOMY EVAL AND TREAT WOUND OSTOMY EVAL AND TREAT Routine 11/16/2019 11:22 AM EDT 11/16/2019 03:22:59 PM EDT [facility] GLUC BLD GLUC MNTR DEV CLEARED FDA SPEC HOME USE POCT GLUCOSE Routine 11/16/2019 10:02 AM EDT 11/16/2019 02:02:00 PM EDT [facility] BLOOD COUNT COMPLETE AUTOMATED CBC Routine 11/16/2019 5:22 A M EDT 11/16/2019 09:22:00 AM EDT [facility] BASIC METABOLIC PANEL CALCIUM TOTAL BASIC METABOLIC PANEL Routi ne 11/16/2019 5:22 AM EDT 11/16/2019 09:22:00 AM EDT [facility] GLUC BLD GLUC MNTR DEV CLEARED FDA SPEC HOME USE POCT GLUCOSE Routine 11/15/2019 8:32 PM EDT 11/16/2019 12:32:00 AM EDT [facility] CT LOWER EXTREMITY W/O CONTRAST MATERIAL CT LOWER EXTREMITY WO CONTRAST RIGHT Routine 11/15/2019 7:50 PM EDT 11/15/2019 11:50:36 PM EDT [facility] RADIOLOGIC EXAM KNEE COMPLETE 4/MORE VIEWS XR KNEE AP LATERAL AXIAL AND TUNNEL RIGHT Routine 11/15/2019 7:18 PM EDT 11/15/2019 11:18 :49 PM EDT [facility] GLUC BLD GLUC MNTR DEV CLEARED FDA SPEC HOME USE POCT GLUCOSE Routine 11/15/2019 2:38 PM EDT 11/15/2019 06:38:00 PM EDT [facility] RADIOLOGIC EXAMINATION TIBIA & FIBULA 2 VIEWS XR TIBI A FIBULA AP AND LATERAL RIGHT STAT 11/15/2019 2:22 PM EDT 11/15/2019 06:22 :23 PM EDT [facility] ECHO TTHRC R-T 2D W/WOM-MODE COMPL SPEC&COLR DOP ECHOCARDIO GRAM TRANSTHORACIC Routine 11/15/2019 1:21 PM EDT 11/15/2019 05:21:07 PM EDT [facility] GLUC BLD GLUC MNTR DEV CLEARED FDA SPEC HOME USE POCT GLUCOSE Routine 11/15/2019 9:10 AM EDT 11/15/2019 01:10:00 PM EDT [facility] BLOOD COUNT COMPLETE AUTOMATED CBC Routine 11/15/2019 6:31 A M EDT 11/15/2019 10:31:00 AM EDT [facility] BASIC METABOLIC PANEL CALCIUM TOTAL BASIC METABOLIC PANEL Routi ne 11/15/2019 6:31 AM EDT 11/15/2019 10:31:00 AM EDT [facility] URINE CULTURE HOLD SPECIMEN URINE CULTURE HOLD SPECIMEN Routine 11/15/2019 4:30 AM EDT 11/15/2019 08:30:00 AM EDT [facility] URINE MICROSCOPIC URINE MICROSCOPIC STAT 11/15/2019 4:30 AM EDT 11/15/2019 08:30:00 AM EDT [facility] URNLS DIP STICK/TABLET RGNT AUTO W/O MICROSCOPY URINALYSIS W/O MICRO STAT 11/15/2019 4:30 AM EDT 11/15/2019 08:30:00 AM EDT [facility] XR CHEST PORTABLE XR CHEST PORTABLE STAT 11/15/2019 12:34 AM EDT 11/15/2019 04:34:19 AM EDT [facility] AMMONIA AMMONIA STAT 11/14/2019 11:52 PM EDT 020 03:52:00 AM EDT [facility] PROCALCITONIN (PCT) PROCALCITONIN STAT 11/14/2019 11:50 PM EDT 11/15/2019 03:50:00 AM EDT [facility] NT PRO BNP NT PRO BNP Routine 11/14/2019 11:50 PM EDT 11/15/2019 03:50:00 AM EDT [facility] IRON BINDING CAPACITY IRON PANEL STAT 11/14/2019 11:50 PM EDT 11/15/2019 03:50:00 AM EDT [facility] TROPONIN QUANTITATIVE TROPONIN I STAT 11/14/2019 11:50 PM EDT 11/15/2019 03:50:00 AM EDT [facility] THROMBOPLASTIN TIME PARTIAL PLASMA/WHOLE BLOOD APTT STAT 11/14/2019 11:50 PM EDT 11/15/2019 03:50:00 AM EDT [facility] PROTHROMBIN TIME PROTIME-INR STAT 11/14/2019 11:50 PM EDT 11/15/2019 03:50:00 AM EDT [facility] BLOOD COUNT RETICULOCYTE AUTOMATED RETICULOCYTES STAT 10/26 11:50 PM EDT 11/15/2019 03:50:00 AM EDT [facility] BLOOD COUNT COMPLETE AUTO&AUTO DIFRNTL WBC COUNT CBC AND DIFFER ENTIAL STAT 11/14/2019 11:50 PM EDT 11/15/2019 03:50:00 AM EDT [facility] C-REACTIVE PROTEIN C-REACTIVE PROTEIN STAT 11/14/2019 11:50 PM E DT 11/15/2019 03:50:00 AM EDT [facility] THYROID STIMULATING HORMONE TSH TSH Routine 11/14/2019 11:50 PM EDT 11/15/2019 03:50:00 AM EDT [facility] LACTATE DEHYDROGENASE LDH LACTATE DEHYDROGENASE STAT 0 11:50 PM EDT 11/15/2019 03:50:00 AM EDT [facility] LACTATE LACTIC ACID STAT 11/14/2019 11:50 PM EDT 11/15/2019 03:50:00 AM EDT [facility] FOLIC ACID SERUM FOLATE STAT 11/14/2019 11:50 PM EDT 11/15/2019 03:50:00 AM EDT [facility] FERRITIN FERRITIN STAT 11/14/2019 11:50 PM EDT 11/14 03:50:00 AM EDT [facility] CYANOCOBALAMIN VITAMIN B-12 VITAMIN B12 STAT 11/14/2019 11:50 PM EDT 11/15/2019 03:50:00 AM EDT [facility] COMPREHENSIVE METABOLIC PANEL COMPREHENSIVE METABOLIC PANEL STA T 11/14/2019 11:50 PM EDT 11/15/2019 03:50:00 AM EDT [facility] ECG ROUTINE ECG W/LEAST 12 LDS W/I&R ECG 12-LEAD Routine 11/14/2019 10:57 PM EDT 11/15/2019 02:57:53 AM EDT [facility] 2019 NCOV AMPLIFIED 2019 NCOV AMPLIFIED Routine 11/14/2019 10:31 PM EDT 11/15/2019 02:31:00 AM EDT [facility] Ultrasonography of Right and Left Heart ULTRASONOGRAPHY OF R IGHT AND LEFT HEART 11/14/2019 12:00:00 AM EDT [facility] EP STUDY EP STUDY Routine 10/30/2019 8:06 AM EDT Encounter for pacemaker at end of battery life 10/30/2019 12 :06:55 PM EDT Encounter for pacemaker at end of battery life [facility] Encounter for pacemaker at end of batter y life GLUC BLD GLUC MNTR DEV CLEARED FDA SPEC HOME USE POCT GLUCOSE Routine 10/30/2019 7:04 AM EDT 10/30/2019 11:04:00 AM EDT [facility] Results ID Date Data Source [id number] 04/24/2020 07:11:00 PM [facility] DETECTEDDETECTEDCALLED TO DR GELA VELASQUEZ 04-24-20{ PROCEDURAL CONTROL VALID KIT LOT # _[id number] 04/24/20.EVA. KIT EXP DATE _[id number] 04/24/20.EVA. NORMAL RANGE IS NOT DETECTEDNEGATIVE RESULTS SHOULD BE TREATED PRESUMPTIVE AND, IF INCONSISTENT WITHCLINICAL SIGNS AND SYMPTOMS OR NECESSARY FOR PATIENT MANAGEMENT, SHOULD BETESTED WITH DIFFERENT AUTHORIZED OR CLEARED MOLECULAR TESTS. NEGATIVE RESULTSDO NOT PRECLUDE SARS-CoV-2 INFECTION AND SHOULD NOT BE USED THE SOLE BASISFOR PATIENT MANAGEMENT DECISIONS. Name Value Range Interpretation Code Description Data Beryl rce(s) Supporting Document(s) ID Date Data Source [id number] 04/24/2020 06:51:00 PM [facility] Name Value Range Interpretation Code Description Data Beryl rce(s) Supporting Document(s) Lactate [Moles/volume] in Serum or Plasma 6.6 MMOL/L 0.2 - 2.2 [facility] VERIFIED BY REPEAT CALL/ READ BACK CALLED TO [facility] BY: EVA [facility] DATE/TIME 04-24-2020 1851 [facility] ID Date Data Source [id number] 04/24/2020 06:19:00 PM [facility] Name Value Range Interpretation Code Description Data [facility] rce(s) Supporting Document(s) URINALYSIS [facility] URINALYSIS SOURCE Cath Spec [facility] COLOR yellow NORMAL: Yellow [facility] CLARITY hazy NORMAL: Clear [facility] Specific gravity of Urine by Test strip 1.020 1.001 - 1.030 [facility] pH 5 5 - 9 [facility] Glucose [Mass/volume] in Urine by Test strip NORM NORMAL: Negat [facility] Bilirubin.total [Presence] in Urine by Test strip 1 NORMAL: Negative [facility] Ketones [Presence] in Urine by Test strip 5 NORMAL: Negative A [facility] Protein [Mass/volume] in Urine by Test strip 15 NORMAL: Negat [facility] Nitrite [Presence] in Urine by Test strip NEG NORMAL: Negative [facility] BLOOD NEG NORMAL: Negative [facility] Leukocyte esterase [Presence] in Urine by Test strip 25 MINESH L: Negative [facility] Urobilinogen [Mass/volume] in Urine by Test strip NOR less carlton n 1.0 mg/dL [facility] MICROSCOPIC See Below [facility] WBC 1 - 3 NORMAL: NONE SEEN [facility] Erythrocytes [#/volume] in Urine by Test strip 1 - 3 NORMAL: NON E SEEN [facility] EPITHELIAL MODERATE NORMAL: NONE SEEN A [facility] Bacteria [Presence] in Urine sediment by Light microscopy Tr luisana NORMAL: NONE SEEN [facility] Amorphous sediment [Presence] in Urine sediment by Light alyssia roscopy RARE NORMAL: NONE SEEN [facility] Casts [#/area] in Urine sediment by Microscopy low power field See Be low [facility] Hyaline casts [#/area] in Urine sediment by Microscopy low p ower field 1-3 NORMAL: None Seen A [facility] ID Date Data Source [id number] 04/24/2020 11:31:[address] [facility] Value Range Interpretation Code Description Data Beryl rce(s) Supporting Document(s) Ferritin [Mass/volume] in Serum or Plasma 697.7 ng/mL 3.0 - 105 H [facility] ID Date Data Source [id number] 04/24/2020 05:57:[address] [facility] Value Range Interpretation Code Description Data Beryl rce(s) Supporting Document(s) C reactive protein [Mass/volume] in Serum or Plasma by High sensitivity method 133.82 MG/L 1.00 - 3.00 H [facility] CDC/S HS-CRP CUT-OFF: RELATIVE RISK: <1.0 mg/L Low 1.0 - 3.0 mg/L Average >3.0 mg/L High Optimally, the average of HS-CRP results repeated two weeks apart should be used for risk assessment. ID Date Data Source [id number] 04/24/2020 03:51:00 PM [facility] Name Value Range Interpretation Code Description Data Beryl rce(s) Supporting Document(s) TROPONIN T <0.01 NG/ML 0.00 - 0.10 [facility] TROPONIN T0.1 ng/ml Recommended as the c linical threshold value forTroponin T. ID Date Data Source [id number] 04/24/2020 03:46:[address] [facility] Value Range Interpretation Code Description Data Beryl rce(s) Supporting Document(s) BNP 1453 PG/ML 0 - 450 H [facility] ID Date Data Source [id number] 04/24/2020 03:33:00 PM EST [facility] Name Value Range Interpretation Code Description Data Beryl rce(s) Supporting Document(s) COMPREHENSIVE METABOLIC PANEL [facility] COMPREHENSIVE METABOLIC PANEL Sodium [Moles/volume] in Serum or Plasma 121 mEq/L 134 - 153 L [facility] Potassium [Moles/volume] in Serum or Plasma 3.2 mEq/L 3.6 - 5.0 L [facility] Chloride [Moles/volume] in Serum or Plasma 79 mEq/L 98 - 107 L [facility] Carbon dioxide, total [Moles/volume] in Serum or Plasma 32 MEQ/L 22 - 30 H [facility] Glucose [Mass/volume] in Serum or Plasma 187 MG/DL 70 - 99 H [facility] BUN 18 MG/DL 7 - 21 [facility] Creatinine [Mass/volume] in Serum or Plasma 1.0 MG/DL 0.7 - 1.5 [facility] BUN/CREAT 18 8 - 27 [facility] Protein [Mass/volume] in Serum or Plasma 5.9 G/DL 6.3 - 8.2 L [facility] Albumin [Mass/volume] in Serum or Plasma 2.3 G/DL 3.9 - 5.0 L [facility] Globulin [Mass/volume] in Serum by calculation 3.6 GM/DL 2.4 - 3.2 H [facility] A/G RATIO 0.6 0.8 - 2.0 L [facility] Calcium [Mass/volume] in Serum or Plasma 8.1 MG/DL 8.4 - 10.2 L [facility] Bilirubin.total [Mass/volume] in Serum or Plasma 3.9 MG/DL 0.2 - 1.3 H [facility] Alkaline phosphatase [Enzymatic activity/volume] in Serum or Plasma 189 U/L 38 - 126 H [facility] Aspartate aminotransferase [Enzymatic activity/volume] in Serum or Plasma 56 U/L 5 - 40 H [facility] Alanine aminotransferase [Enzymatic activity/volume] in Seru m or Plasma 6 U/L 7 - 56 L [facility] Anion gap 3 in Serum or Plasma 10.0 mmol/L 8.0 - 16.0 [facility] AGE [address] [facility] NON-AA GFR 56 mL/min [facility] rocío AFR AMER GFR >60 [facility] Male GFR In terprentation 20-49 yrs >60 mL/min Normal 50-59 yrs >56 mL/min Normal 60-69 yrs >49 mL/min Normal 70-79yrs >42 mL/min Normal 80 and above >35 mL/min Normal Female GFR Interpretation 20-39 yrs >60 mL/min Normal 40-49 yrs >58 mL/min Normal 50-59 yrs >51 mL/min Normal 60-69 yrs >45 mL/min Normal 70-79 yrs >39 mL/min Normal 80 and above >32 mL/min Normal ID Date Data Source [id number] 04/24/2020 03:31:00 PM EST [facility] Name Value Range Interpretation Code Description Data Beryl rce(s) Supporting Document(s) CBC W/AUTOMATED DIFF [facility] COMPLETE BLOOD COUNT Leukocytes [#/volume] in Blood by Automated count 4.9 10^3/uL 4.2 - 1 1.0 [facility] Erythrocytes [#/volume] in Blood by Automated count 3.33 10^6/uL 4. 20 - 5.40 L [facility] Hemoglobin [Mass/volume] in Blood 10.2 g/dL 12.0 - 16.0 L [facility] Hematocrit [Volume Fraction] of Blood by Automated count 30.1 % 3 7.0 - 47.0 L [facility] Erythrocyte mean corpuscular volume [Entitic volume] by Auto mated count 90.4 fL 81.0 - 101 [facility] Erythrocyte mean corpuscular hemoglobin [Entitic mass] by Automated count 30.6 pg 27.0 - 34.0 [facility] Erythrocyte mean corpuscular hemoglobin concentration [Mass/volume] by Automated count 33.9 g/dL 31.0 - 36.0 [facility] Erythrocyte distribution width [Ratio] by Automated count 17.2 % 11.5 - 14.5 H [facility] Platelets [#/volume] in Blood by Automated count 131 10^3/uL 150 - 45 0 L [facility] Platelet mean volume [Entitic volume] in Blood by Automated count 8.5 fL 7.4 - 10.4 [facility] Neutrophils/100 leukocytes in Blood by Automated count 86.8 % 37. 0 - 80.0 H [facility] Lymphocytes/100 leukocytes in Blood by Manual count 3.7 % 25.0 - 40.0 L [facility] Monocytes/100 leukocytes in Blood by Automated count 9.1 % 3.0 - 8.0 H [facility] Eosinophils/100 leukocytes in Blood by Automated count 0.0 % 0.0 - 7.0 [facility] Basophils/100 leukocytes in Blood by Automated count 0.0 % 0.0 - 2.5 [facility] %IG 0.4 % 0.0 - 0.[address] [facility] %NRBC 0.0 % 0.0 - 0.0 [facility] al Neutrophils [#/volume] in Blood by Automated count 4.21 10^3/uL 2.00 - 6.90 [facility] Lymphocytes [#/volume] in Blood by Automated count 0.18 10^3/uL 0.60 - 3.40 L [facility] Monocytes [#/volume] in Blood by Automated count 0.44 10^3/uL 0.00 - 0.90 [facility] Eosinophils [#/volume] in Blood by Automated count 0.00 10^3/uL 0.00 - 0.70 [facility] Basophils [#/volume] in Blood by Automated count 0.00 10^3/uL 0.00 - 0.20 [facility] #IG 0.02 10^3/uL 0.00 - 0.10 [facility]ital #NRBC 0.00 10^3/uL 0.00 - 0.00 [facility] MANUAL DIFF NOT INDICATED [facility] RBC MORPH NOT INDICATED [facility] spital ID Date Data Source [id number] 04/24/2020 03:25:00 PM EST [facility] Name Value Range Interpretation Code Description Data Beryl rce(s) Supporting Document(s) Fibrin D-dimer FEU [Mass/volume] in Platelet poor plasma 3.69 ug /mL 0.27 - 0.50 H [facility] ID Date Data Source [id number] 04/24/2020 03:25:00 PM [facility] Name Value Range Interpretation Code Description Data Beryl rce(s) Supporting Document(s) Prothrombin time (PT) 21.7 SECONDS 11.0 - 15.5 H [facility] INR in Platelet poor plasma by Coagulation assay 1.79 0.93 - 1. 23 H [facility] aPTT in Blood by Coagulation assay 60.4 SECONDS 24.8 - 36.7 H [facility] \\BLDo\\INR INTERPRETATION\\BLDx\\ Therapeutic range for Coumadin and related oral anticoagulants. - International Normalized Ratio (INR): 2.0 - 3.0 for Venous Thrombosis, Pulmonary Embolus, Tissue heart valves, Acute MO Atrial Fibrillation, Valvular heart disease and recurrent Systemic Embolism. - International Normalized Ratio (INR): 2.5 - 3.5 for Mechanical Prosthetic valve. ID Date Data Source [id number] 04/24/2020 03:11:00 PM [facility] Name Value Range Interpretation Code Description Data Beryl rce(s) Supporting Document(s) pH of Serum or Plasma 7.48 7.32 - 7.43 [facility] pCO2 V 44.5 mm/HG 38.0 - 51.0 [facility] pO2 V 46.1 mm/HG 30.0 - 55.0 [facility] Bicarbonate [Moles/volume] in Venous blood 32.6 meq/L 22.0 - 29.0 H [facility] TCO2 V 33.9 meq/L 22.0 - 29.[address] [facility] Base excess in Blood by calculation 8.3 -2.0 - 2.0 [facility] O2 SAT V 86.3 % 40.0 - 85.[address] [facility] ID Date Data Source [id number] 04/24/2020 03:09:00 PM [facility] Name Value Range Interpretation Code Description Data Beryl rce(s) Supporting Document(s) Lactate [Moles/volume] in Serum or Plasma 3.8 MMOL/L 0.2 - 2.2 [facility] CALL/ READ BACK chula/ ED [facility] BY: JNL [facility] DATE/TIME 04/24/20 15:11 [facility] spital ID Date Data Source [id number] 04/09/2020 12:00:00 AM EST [facility] Name Value Range Interpretation Code Description Data Beryl rce(s) Supporting Document(s) SARS-CoV2 Rapid Antigen Positive [facility] This lab was ordered by [facility] and reported by [facility]. ID Date Data Source [id number] 04/06/2020 09:44:00 AM EST [facility] Name Value Range Interpretation Code Description Data Beryl rce(s) Supporting Document(s) SARS coronavirus 2 RNA Not Detected [facility] This lab was ordered by [facility] and reported by [facility]. ID Date Data Source [id number] 04/09/2020 06:26:00 AM EST [facility] Name Value Range Interpretation Code Description Data Beryl rce(s) Supporting Document(s) SARS-CoV-2, GET Not Detected Not Detected [facility] This nucleic acid amplification test was developed and its performancecharacteristics determined by [employer] Nucleic acidamplification tests include PCR and TMA. This test has not been FDAcleared or approved. This test has been authorized by FDA under anEmergency Use Authorization (EUA). This test is only authorized forthe duration of time the declaration that circumstances existjustifying the authorization of the emergency use of in vitrodiagnostic tests for detection of SARS-CoV-2 virus and/or diagnosisof COVID-19 infection under section 564(b)(1) of the Act, 21 U.S.C.360bbb-3(b) (1), unless the authorization is terminated or revokedsooner.When diagnostic testing is negative, the possibility of a falsenegative result should be considered in the context of a patient'srecent exposures and the presence of clinical signs and symptomsconsistent with COVID- 19. An individual without symptoms of COVID-19and who is not shedding SARS-CoV-2 virus would expect to have anegative (not detected) result in this assay. ORDER COVID 19 2 DAY YES [facility] ID Date Data Source [id number] 04/02/2020 07:41:00 PM EST [facility] Name Value Range Interpretation Code Description Data Beryl rce(s) Supporting Document(s) SARS-CoV-2 (COVID 19) NEGATIVE - SARS-CoV-2 (COVID19) [facility] This lab was ordered by [facility] a nd reported by [facility]. ID Date Data Source [id number] 03/30/2020 10:17:00 AM EST [facility] Name Value Range Interpretation Code Description Data Beryl rce(s) Supporting Document(s) Respiratory specimen severe acute respir atory syndrome coronavirus 2 (SARS-CoV-2) RNA [facility] This lab was ordered by [facility] rocío and reported by . ID Date Data Source [id number] 02/26/2020 03:20:00 AM EST [facility] Name Value Range Interpretation Code Description Data Beryl rce(s) Supporting Document(s) SARS coronavirus 2 RNA [Presence] in Res piratory specimen by GET with probe detection [facility] This lab was ordered by [facility] a nd reported by [facility]. ID Date Data Source [id number] 02/26/2020 11:19:00 AM EST [facility] Imaging Services Department Imaging Report [address] [place] [id number] %(RAD)RES..mtdd.print.filter("line") Name: LINDSAY BLAIR : 1935 Age/Sex: 84F Ordering Provider: BINA Bolaños Med Rec #: [id number] Reg Status: [facility] Room #: Date of Service: 02/25/20 Report Number: [id number] cc:ALEXIS Conteh Send Report To: [id number] CT/CT Head No Contrast Reason for exam: fall Comparison: 11-13-19 FINDINGS: There is mild prominence of the ventricles and sulci from atrophy, which is stable. Stable severe, diffuse low attenuation is seen in the periventricular w kiel matter from chronic periventricular white matter ischemia. There is no mass, mass effect, midline shift, extra-axial fluid collection or intracranial hemorrhage. The visualized portions of the orbits are unremarkable along with the visualizedparanasal sinuses. No suspicious osseous lesions or acute fracture is identified. IMPRESSION: Atrophy. Severe chronic periventricular what matter ischemia. No acute disease. While performing the above CT exam, the following dose reduction techniques wereused: *Automated exposure control *Adjustment of the mA and/or kV according to patient size *Use of iterative reconstruction technique CT Dose in mGy: Contrast Agent: Amount in ml: Method of Administration: REPORT SIGNATURE ON FILE Reported By: Tashi Chaudhari MD <Electronically signed by Tashi Chaudhari MD> 02/27/20 0955 Dictation Date/Time: 02/25/20 1512 Transcribed Date/Time: 05/16 1119 Salon Sales Consultant: RAFFI Name Value Range Interpretation Code Description Data Beryl rce(s) Supporting Document(s) ID Date Data Source [id number] 02/25/2020 12:32:00 PM EST [facility] First test? NOEmployed in healthcare? NOSymptomatic per CDC? NOHospitalized? NOICU? NOResident in congregated care? ex skilled nursing, [facility] NO? NO Name Value Range Interpretation Code Description Data [facility] rce(s) Supporting Document(s) SARS-CoV-2 RNA Negative Normal (applies to non-numeric r esults) [facility] Negative results should be treated as pr esumptive and, if inconsistent with clinical signs and symptoms or necessary for patient management, should be tested with different authorized or cleared molecular tests. Negative results do not preclude SARS-CoV-2 infection and should not be used as the sole basis for patient management decisions. Negative results should be considered in the context of a patient???s recent exposures, history and the presence of clinical signs and symptoms consistent with COVID-19. This test has not been FDA cleared or approved; this test has been authorized by FDA under an Emergency Use Authorization for use by laboratories certified under the Clinical Laboratory Improvement Amendments of 1988 (CLIA), 42 U.S.C. ???263a, to perform moderate complexity/high complexity tests and at the Point of Care (POC), i.e., in patient care settings operating under a CLIA Certificate of Waiver, Certificate of Compliance, or Certificate of Accreditation. Factsheets for healthcare providers: https://www.fda.gov/media/887870/download Factsheets for patients: https://www.fda.gov/media/544351/download The ID NOW Instrument is a rapid molecular in vitro diagnostic test utilizing an isothermal nucleic acid amplification technology intended for the qualitative detection of nucleic acid from the SARS-CoV-2 viral RNA. THIS IS A STATE REPORTABLE COMMUNICABLE DISEASE. Manual entry verified by Gustavo Lemus 02/25/20 1231 ID Date Data Source [id number] 02/25/2020 11:47:00 AM EST [facility] Name Value Range Interpretation Code Description Data Beryl rce(s) Supporting Document(s) Sodium 131 mmol/L 136-145 Below low normal [facility] Potassium 3.5-5.1 Normal (applies to non-numeric resul ts) [facility] Chloride 96 mmol/L 98-107 Below low normal [facility] spital Carbon Dioxide CO2 21-32 Normal (applies to non-numer ic results) [facility] Anion Gap 5.0-16.0 Normal (applies to non-numeric resul ts) [facility] BUN 15 mg/dL 7-18 Normal (applies to non-numeric results) [facility] Creatinine,Serum 0.7-1.2 Normal (applies to non-numeric results) [facility] GFR 50 mL/min >60 Below low normal [facility] spital Glucose Level 307 mg/dL 60-99 Above high normal [facility] Reference range is only applicable when patient is fasting Note the following drug interference: Sulfasalazine Sulfapyridine Can see falsely depressed Can see falsely elevated result with up to 17% results with up to 11% decrease in measurement increase in measurement Recommend patients be collected for this test prior to administration of either drug. Calcium 8.5-10.1 Normal (applies to non-numeric resul ts) [facility] Bilirubin,Total 0.1-1.9 PH [facility] can Foster RN read back critical informati on 02/25/20 1146 LAB.NRO SGOT(AST) 39 U/L 15-37 Above high normal [facility] ospital Note the following drug interference: Sulfasalazine Sulfapyridine Can see falsely depressed Can see falsely elevated result with up to 10% results with up to 10% decrease in measurement increase in measurement Recommend patients be collected for this test prior to administration of either drug. SGPT(ALT) 15 U/L 12-78 Normal (applies to non-numeric resul ts) [facility] Note the following drug interference: Sulfasalazine Sulfapyridine Can see falsely depressed Can see falsely elevated result with up to 29% results with up to 10% decrease in measurement increase in measurement Recommend patients be collected for this test prior to administration of either drug. Alkaline Phosphatase 372 U/L 38-126 Above high normal [facility] can increase Alkaline Phosp le vels up to 2 times the normal adult value. Normal values for children and adolescents are 2 to 3 times the normal adult value. Total Protein 6.0-8.2 Normal (applies to non-numeric re sults) [facility] Albumin Level 3.4-5.0 Below low normal [facility] ID Date Data Source [id number] 02/25/2020 11:37:00 AM EST [facility] Name Value Range Interpretation Code Description Data Beryl rce(s) Supporting Document(s) White Blood Count 3.5-10.5 Normal (applies to non-numeri c results) [facility] Red Blood Count 3.90-5.00 Below low normal [facility] Hemoglobin 12.0-15.5 Below low normal [facility] Hematocrit 34.9-44.5 Below low normal [facility] Mean Corpuscular Volume 81.2-95.1 Above high normal [facility] Mean Corpuscular Hgb 25.6-32.2 Above high normal [facility] Mean Corpuscular Hgb Conc 32.0-36.0 Normal (applies to no n-numeric results) [facility] Red Cell Distribution Width 11.9-15.5 Above high normal [facility] Platelet Count 190 x10 3/uL 150-450 Normal (applies to non-numeric results) [facility] Mean Platelet Volume 9.4-12.4 Normal (applies to non-num omer results) [facility] Neutrophils% (Auto) 31.0-71.0 Above high normal [facility] Lymphocytes% (Auto) 20.0-55.0 Below low normal [facility] Monocytes% (Auto) 4.0-12.0 Above high normal [facility] Eosinophils% (Auto) 1.0-8.0 Below low normal [facility] Basophils% (Auto) 0.0-2.0 Normal (applies to non-numeri c results) [facility] Immature Granulocytes% (Auto) 0.0-2.0 Normal (juan lies to non-numeric results) [facility] Neutrophils# (Auto) 1.50-6.20 Above high normal [facility] Lymphocytes# (Auto) 1.20-4.00 Below low normal [facility] Monocytes# (Auto) 0.00-0.90 Above high normal [facility] Eosinophils# (Auto) 0.00-0.50 Normal (applies to non-nume ronaldo results) [facility] Basophils# (Auto) 0.00-0.20 Normal (applies to non-numeri c results) [facility] Immature Granulocytes# (Auto) 0.00-7.00 No rmal (applies to non-numeric results) [facility] Slide Reviewed By Normal (applies to non-numeri c results) [facility] Slide has been reviewed and findings con firmed by a technologist/nurse technician. ID Date Data Source [id number] 02/25/2020 12:57:00 PM [facility] Imaging Services Department Imaging Report [address], [place] [address] %(RAD)RES..mtdd.print.filter("line") Name: LINDSAY BLAIR : 1935 Age/Sex: 84F Ordering Provider: BINA Bolaños Med Rec #: [id number] Reg Status: REG ER Room #: Date of Service: 02/25/20 Report Number: [id number] cc:ALEXIS Conteh Send Report To: [id number] XRP/XR Femur Rt Reason for exam: pain FINDINGS: There is a right femoral neck fracture identified with some foreshortening at the fracture site. No other significant findings. IMPRESSION: Right femoral neck fracture. Time portable performed: Fluoroscopy time in seconds: Number of Exposures: Contrast Agent in ml: Method of Administration: REPORT SIGNATURE ON FILE Reported By: Cecile Montalvo MD <Electronically signed by Nini Montalvo MD> 02/25/20 1658 Dictation Date/Time: 02/25/20 1210 Transcribed Date/Time: 02/25/20 1257 Salon Sales Consultant: DANIA Name Value Range Interpretation Code Description Data Beryl rce(s) Supporting Document(s) ID Date Data Source [id number] 02/25/2020 12:55:00 PM [facility] Imaging Services Department Imaging Report [address], [place] [address] %(RAD)RES..mtdd.print.filter("line") Name: LINDSAY BLAIR : 1935 Age/Sex: 84F Ordering Provider: Hakan Leal [facility] Med Rec #: [id number] Reg Status: REG ER Room #: Date of Service: 02/25/20 Report Number: [id number] cc:ALEXIS Conteh Send Report To: [id number] XRP/XR Hips Stan w Pelvis min 5 vws Reason for exam: pain FINDINGS: Right femoral neck fracture noted. 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 IMPRESSION: Right femoral neck fracture. Time portable performed: Fluo roscopy time in seconds: Number of Exposures: Contrast Agent in ml: Method of Administration: REPORT SIGNATURE ON FILE Reported By: Cecile Montalvo MD <Electronically signed by Nini Montalvo MD> 02/25/20 1658 Dictation Date/Time: 02/25/20 1210 Transcribed Date/Time: 02/25/20 1255 Salon Sales Consultant: DANIA Name Value Range Interpretation Code Description Data Beryl rce(s) Supporting Document(s) ID Date Data Source [id number] 02/22/2020 12:00:00 AM EST [facility] Name Value Range Interpretation Code Description Data Beryl rce(s) Supporting Document(s) SARS-CoV2 Rapid Antigen [facility] This lab was ordered by [facility] and reported by [facility]. ID Date Data Source [id number] 03/10/2020 02:16:00 AM [facility] Name Value Range Interpretation Code Description Data Beryl rce(s) Supporting Document(s) SARS-CoV-2 RNA INHOUSE Negative Normal (applies to non-n umeric results) [facility] Testing was performed using the [employer] COVID-19 MDx Assay. This test has been authorized by FDA under an (Emergency Use Authorization) EUA for use by authorized laboratories for individuals who are suspected of COVID-19 by their healthcare provider. This test is only authorized for the duration of the declaration that circumstances exist justifying the authorization of emergency use of in vitro diagnostic tests for detection and/or diagnosis of SARS-CoV-2. Methodology: Endpoint RT-PCR. Fact sheets for this EUA assay can be found at the following links: Providers: https://www.fda.gov/media/306946/download Patients : https://www.fda.gov/media/196604/download THIS IS A [facility] REPORTABLE COMMUNICABLE DISEASE Negative results do not preclude SARS-CoV-2 infection and should not be used as the sole basis for patient management decisions. Negative results must be combined with clinical observations,patient history, and epidemiological information. ID Date Data Source [id number] 03/10/2020 02:16:00 AM [facility] Name Value Range Interpretation Code Description Data Beryl rce(s) Supporting Document(s) Urine Culture Normal (applies to non-numeric re sults) [facility] ID Date Data Source [id number] 03/10/2020 02:16:00 AM [facility] Name Value Range Interpretation Code Description Data Beryl rce(s) Supporting Document(s) Color,Urine Yellow Normal (applies to non-numeric resu lts) [facility] Clarity,Urine Clear Normal (applies to non-numeric re sults) [facility] Specific [place],Urine 1.001-1.030 Normal (applies to non- numeric results) [facility] PH,Urine 5.0-8.0 Normal (applies to non-numeric resul ts) [facility] Protein,Urine Negative Normal (applies to non-numeric re sults) [facility] Glucose,Urine (UA) Negative [facility] Ketones,Urine Negative Normal (applies to non-numeric re sults) [facility] Blood,Urine Negative Normal (applies to non-numeric resu lts) [facility] Bilirubin,Urine Negative Normal (applies to non-numeric results) [facility] Urobilinogen,Urine Norm 0.2-1 Normal (applies to non-numer ic results) [facility] Leukocyte Esterase,Urine Negative [facility] Nitrite,Urine Negative Normal (applies to non-numeric re sults) [facility] RBC,Auto Urine 0-2 Normal (applies to non-numeric r esults) [facility] WBC Urine Auto 0-10 Normal (applies to non-numeric r esults) [facility] Casts,Hyaline,Urine Auto 0-2 Normal (applies to non -numeric results) [facility] Bacteria Urine Auto None Seen Normal (applies to non-nume ronaldo results) [facility] Epithelial Cell Ur Auto None-Few Normal (applies to non- numeric results) [facility] ID Date Data Source [id number] 03/10/2020 09:02:00 AM EST [facility] Name Value Range Interpretation Code Description Data Beryl rce(s) Supporting Document(s) SARS-CoV-2 GET result NotDetected Normal (applies to non-n umeric results) [facility] This nucleic acid amplification test was developed and its performance characteristics determined by [employer] Nucleic acid amplification tests include PCR and TMA. This test has not been FDA cleared or approved. This test has been authorized by FDA under an Emergency Use Authorization (EUA). This test is only authorized for the duration of time the declaration that circumstances exist justifying the authorization of the emergency use of in vitro diagnostic tests for detection of SARS-CoV-2 virus and/or diagnosis of COVID-19 infection under section 564(b)(1) of the Act, 21 U.S.C. 360bbb-3(b) (1), unless the authorization is terminated or revoked sooner. When diagnostic testing is negative, the possibility of a false negative result should be considered in the context of a patient's recent exposures and the presence of clinical signs and symptoms consistent with COVID-19. An individual without symptoms of COVID-19 and who is not shedding SARS-CoV-2 virus would expect to have a negative (not detected) result in this assay. Performed at: [facility] [address] [id number] Inspection Supervisor: Eliza Whitley MD, Phone: [phone] ID Date Data Source [id number] 03/23/2020 01:02:00 PM EST [facility] COVID-19 Patient Ethnicity UnknownCOVID -19 Patient Race UnknownCOVID-19 Specimen Source Nasopharyngeal Name Value Range Interpretation Code Description Data Beryl rce(s) Supporting Document(s) SARS-CoV-2 Specimen Source Normal (applies to n on-numeric results) [facility] SARS-CoV-2 RNA Undetected Normal (applies to non-numeric r esults) [facility] SARS-CoV-2 RNA absent. This result does not rule out COVID-19 in the patient, as the sensitivity of the test depends on the timing of the specimen collection and the quality of the specimen. Result should be correlated with patient's history and clinical presentation. Patient Race Normal (applies to non-numeric res ults) [facility] Patient Ethnicity Normal (applies to non-numeri c results) [facility] Method Summary Normal (applies to non-numeric r esults) [facility] THFSH- This test uses the TaqPath COVID- 19 Combo Kit ([employer] and is performed on the [employer] magnetic particle processor and [employer] SnapOne Fast Dx Real-Time PCR System. It has received Emergency Use Authorization (EUA) by the U.S. Food and Drug Administration. Performance characteristics were verified by [facility] in a manner consistent with CLIA requirements. Fact sheets for this Emergency Use Authorization (EUA) can be found at the following links: https://www.fda.gov/media/113671/download for Healthcare Providers https://www.fda.gov/media/799259/download for Patients Test Performed by: [facility] [place] [address] Inspection Supervisor: Carlos Alegre M.D. Ph.D.; CLIA# [id number] ID Date Data Source [id number] 01/18/2020 07:13:37 PM EDT [facility] Name Value Range Interpretation Code Description Data Beryl rce(s) Supporting Document(s) &PDF [facility] GAAXLv6xGtMPHqXh28/OCUabGSBjo7ZqMZxwBIf4EEhdJBOcU4TqzLeyRGkGB50BZlpYGAWmRdNrCNGg FcG [file] ICAgICAgICAgICAgICAgICAgICAgICAgICAgICAgICAgICAgICAgICAgICAgICAgICAgICAgICAgICAg UZQrRL2XKGCuLVWpJHDlZYQvGNTcEJGqFAYaUVDrVG AgICAgICAgICAgICAgICAgICAgICAgICAgICAgICAgICAgICAgICAgICAgICAgICAgICAgICAgICAgIC YnOLOjFFCaFWIyXWBoQV4WSUDeAWWbSAUwFKUrEZGtVNFgCQKmCWAxVLRcNIJmUDEiQRXxYMYnMYJtNI AgICAgICAgICAgICAgICAgICAgICAgICAgICAgICAg HAIbJDFsORWjRGSfAQOkGEGsLDIrCPGdQF2HILLwKXEdJIZrVZDkLQLuJYBuNBXoQATwCPOwKCDkFTYd ICAgICAgICAgICAgICAgICAgICAgICAgICAgICAgICAgICAgICAgICAgICAgICAgICAgICAgICAgICAg ORQxUOZzOR6RZDDbRJWgYRHwDLIhLXXbXTQlTLMwCK AgICAgICAgICAgICAgICAgICAgICAgICAgICAgICAgICAgICAgICAgICAgICAgICAgICAgICAgICAgIC QoLQYvWSFwHUIdQWIjJYXpRK3EEKKhGYBxALZrCRNfQNMxUNNzDEMgTSWpAEYvFJEePDCiWREgIYRrOS AgICAgICAgICAgICAgICAgICAgICAgICAgICAgICAg RIEiZZUiUABwXFQcVFOsNXBjALTcXMZoNEQmVI6UZIWvUCSfMLMcMYGuVGHaZEGeUKQsFESkUPRrKHUr ICAgICAgICAgICAgICAgICAgICAgICAgICAgICAgICAgICAgICAgICAgICAgICAgICAgICAgICAgICAg AEAsSWOvIOAbIL7DSJAgIICzBPGlIQIzIPPsCZHkST AgICAgICAgICAgICAgICAgICAgICAgICAgICAgICAgICAgICAgICAgICAgICAgICAgICAgICAgICAgIC MqTUSwVMHlVMJeUJZsAPKhYDYfZK5ZCSWrFFYpMMFsXFGnCXUnATLvJZKiAMUvBJXmOIXuVRLtMIAlMM AgICAgICAgICAgICAgICAgICAgICAgICAgICAgICAg JHUeASSlOMLfRJZeCTHxXPIyWRIlKEVuDTGmXEAxDA6EASRiLBRdBMRwTIBpWPEnJWHmPBZpVJXaIMUx ICAgICAgICAgICAgICAgICAgICAgICAgICAgICAgICAgICAgICAgICAgICAgICAgICAgICAgICAgICAg DHAaOQEoBQGpYITgXG2QBL83qJCiw5L2UETjWY1url c/Ug5DFDqjyiUtpSZdQP8ALpCwXC7sru0ZMmCoTK0awd0CXVzPUiRdQ9L4gXBjXNQwGGGHKgLhF21bWP wfNz55NVywSLNeSbCiFQe3Qw8TVtCpY0jcVNXnOcZ4KBJtXnS8PSPvVzZiAMoxND0Sh8XfxBMsOYc+Pg 8DCI3kl3HsRLwsPrGsDT8hqg7HQVkHKoWjL2D9tFFu C0O4LRvnZf7AWAMfCNRsLjIwQKGSKKxsCA1QSR2ghrO3DM1AtDQmYXYqVNVzqTCgYXv9K17sbFUcKEsi ZP7GHHB+Elida+Ur3VRHSoEZFdOSCtXwCzWYEOEnWzK71jjCHxBMXqPDS6MSOeWb5WIYYiA3MuowHtaIvz rnOjIBHuADNVBE8WYStcooKumKSeaOqxTO78hHjcNH 9KOf7AGeGqJM8hej8OwIIcBh4VBHSlWr8MMBScCWIdGJNiZVS5XUTcNnIjLEmiOFNaRKWrWFX3NPZgIE QlTU6WWrZiVMXxAiM2GJXvRBAcYOFexc6XHYMhTXTaMLIeJyCjCOYkQZIrPUizOAToYUSiXLvnGFNgJE FrSK7AQoGwRUWpOID0GKPwZYFoGAPpvq7GECNyYUDo XlJ8LEZnHQDhRHHqBAzzOWEiPWAaCPJ9YRNoZOUmXN2JAbLbTBMeNHGvHuJbKUSkINNueo5YBABwYFPo CTCnAVEzPOPvNIEuBKrsQDSlOAC1LoM0TKEmECRkEM8LEjXuSJOpMGH9NHfkVWKmLTXzoe5XNZJfMLTm SrD2DwVjZSHnYABjAApfTBGlSYZ6PfN1HYHrJHRuAI 3TSvZwQBEzKWB7COIlQCLuMUGbzk3MCEEhVYKcQArtBeEeBHQeJWEcMQexAPMvCNZqUDQ5QHSmTRSrBC 0VYjUzIVVqXADuLVPoWZTlREPncx7UUIDfLJPnHnL5SANzLIYoTKArDNgaILNgOVTwNvL5ZSQdLNAgXA 7PUyYjCSXcDSM4KrVsDIZdGQPopk6DKMSxBTGrVug7 FSFkWVHbJDEzMKutIWLoXLQmBKS1LUGrLHKnKL7ADaSrBBSvBSn2QEOtKUPuDVRgoc6KHWDjYPBsYiOa NWDyBGNaNCFrJGepIXJpJKFbMTc9WCCuAIVtIN4SWqHbQJPqYeL8KgDdWGMuUJGvbl2JaNPvvWxkpo3Q CMkDOx2RpTnmJCZ3BQqnYr8zbIWlEdBjVNGFKn8Jdl LqCSIuOLVMUOkuZGXgLTI5Tdy6PZubJfMtYUs4ZPuqQKNiOqivFNEaVFZ0UPMsJsQ4UvH1WKRlR0G1Yv X4LIRpAEQ5EuEcLZQbWWPrFrgxCdR+BW2qQEw+Fx8Wb6YvztD1pgYdREakNUhlHL8GRNGRG4LSLl== ID Date Data Source [id number] 01/03/2020 06:10:00 PM EDT [facility] Hospital Name: LINDSAY BLAIR : 1935 Age/S ex: 84F Ordering Provider: Ktaie Emanuel MD Med Rec #: [id number] Reg Status: DEP REF Room #: Date of Service: 01/03/20 Report Number: [id number] cc:Katie Emanuel MD; Selwyn Bell IV, EDMUND Send Report To: [id number] US/US Duplex Lower Ext Veins Rt Reason for exam: PAIN, LEG EDEMA Technique: Ultrasound imaging performed using color flow and spectral Doppler interrogation. FINDINGS: There is no evidence for DVT. No Guillory's cysts are present. Edema is present in the subcutaneous tissues of the right calf. IMPRESSION: Edema in the subcutaneous tissues of the veins of the right calf, otherwise normal exam. REPORT SIGNATURE ON FILE Reported By: Cecile Verduzco MD <Electronically signed by Cecile Verduzco MD> 01/06/20 1138 Dictation Date/Time: 01/03/20 1530 Transcribed Date/Time: 01/03/20 18 10 [employer] Sales Consultant: LUKE Name Value Range Interpretation Code Description Data Beryl rce(s) Supporting Document(s) ID Date Data Source [id number] 12/26/2019 02:30:00 PM EDT [facility] Name Value Range Interpretation Code Description Data Beryl rce(s) Supporting Document(s) Sodium 134 mmol/L 137-145 Below low normal [facility] Potassium 3.5-5.1 Normal (applies to non-numeric resul ts) [facility] Chloride 98 mmol/L 98-112 Normal (applies to non-numeric resul ts) [facility] Carbon Dioxide CO2 22.0-33.0 Normal (applies to non-numer ic results) [facility] Anion Gap 4.0-11.0 Normal (applies to non-numeric resul ts) [facility] BUN 21 mg/dL 7-17 Above high normal [facility] Creatinine 0.70-1.20 Above high normal [facility] GFR 38 mL/min >60 Below low normal [facility] Result based on MDRD formula. Glucose Level 284 mg/dL 74-99 Above high normal [facility] The reference range is only applicable w hen fasting. Calcium-Uncorrected 8.4-10.2 Normal (applies to non-nume ronaldo results) [facility] Corrected Calcium 8.4-10.2 Above high normal [facility] Bilirubin,Total 0.2-1.3 Above high normal [facility] SGOT(AST) 33 U/L 14-36 Normal (applies to non-numeric resul ts) [facility] SGPT(ALT) 11 U/L 9-52 Normal (applies to non-numeric resul ts) [facility] Alkaline Phosphatase 358 U/L 38-126 Above high normal [facility] can increase Alkaline Phosp le vels up to 2 times the normal adult value. Normal values for children and adolescents are 2 to 3 times the normal adult value. Total Protein 6.3-8.2 Normal (applies to non-numeric re sults) [facility] Albumin 3.5-5.0 Below low normal [facility] ID Date Data Source [id number] 12/26/2019 02:30:00 PM EDT [facility] Name Value Range Interpretation Code Description Data Beryl rce(s) Supporting Document(s) Bilirubin,Direct 0.0-0.3 Above high normal [facility] ID Date Data Source [id number] 12/26/2019 01:44:00 PM EDT [facility] Name Value Range Interpretation Code Description Data Beryl rce(s) Supporting Document(s) Hemoglobin A1C % Less than 5.7% Above high normal [facility] HBA1C: Normal: Less than 5.7% Prediabetes: 5.7% to 6.4% Diabetes: 6.5% or higher HA1C % vs Estimated Average Glucose (eAG) % eAG % eAG 6% 126 mg/dL 10% 240 mg/dL 7% 154 mg/dL 11% 269 mg/dL 8% 183 mg/dL 12% 298 mg/dL 9% 212 mg/dL Reference: [place] [employer], 2017 ID Date Data Source [id number] 12/26/2019 01:21:00 PM EDT [facility] Name Value Range Interpretation Code Description Data Beryl rce(s) Supporting Document(s) White Blood Count 4.8-10.8 Below low normal [facility] Red Blood Count 3.68-5.22 Below low normal [facility] Hemoglobin 11.2-15.7 Below low normal [facility] Hematocrit 34.1-44.9 Below low normal [facility] Mean Corpuscular Volume 81-99 Normal (applies to non- numeric results) [facility] Mean Corpuscular Hemoglobin 27.0-33.0 Normal (appli es to non-numeric results) [facility] Mean Corpuscular HGB Conc 32.0-36.0 Below low normal [facility] Red Cell Distribution Width 11.5-14.5 Above high normal [facility] Platelet Count 204 X10 3/uL 130-450 Normal (applies to non-numeric results) [facility] Mean Platelet Volume 9.5-12.7 Normal (applies to non-num omer results) [facility] Imm Grans% (AUTO) 0 % 0-2 Normal (applies to non-numeri c results) [facility] Neutrophils % (AUTO) 72 % 40-75 Normal (applies to non-num omer results) [facility] Lymphocytes % (AUTO) 13 % 21-46 Below low normal [facility] Monocytes % (AUTO) 12 % 5-12 Normal (applies to non-numer ic results) [facility] Eosinophils % (AUTO) 2 % 1-5 Normal (applies to non-num omer results) [facility] Basophils % (AUTO) 1 % 0-1 Normal (applies to non-numer ic results) [facility] Imm Grans# (AUTO) 0.0-0.5 Normal (applies to non-numeri c results) [facility] Neutrophils # (AUTO) 1.5-8.1 Normal (applies to non-num omer results) [facility] Lymphocytes # (AUTO) 1.0-3.1 Below low normal [facility] Monocytes # (AUTO) 0.2-1.3 Normal (applies to non-numer ic results) [facility] Eosinophils# (AUTO) 0.0-0.5 Normal (applies to non-nume ronaldo results) [facility] Basophils # (AUTO) 0.0-0.1 Normal (applies to non-numer ic results) [facility] ID Date Data Source [id number] 12/25/2019 08:45:00 AM EDT [facility] Time Collected: 0753 [place] Result: 94 Name Value Range Interpretation Code Description Data Beryl rce(s) Supporting Document(s) LAB Glucose,Fingerstick 94 mg/dL 61-115 Normal (applies t o non-numeric results) [facility] ID Date Data Source [id number] 12/24/2019 07:11:00 PM EDT [facility] Name Value Range Interpretation Code Description Data Beryl rce(s) Supporting Document(s) Respiratory specimen severe acute respir atory syndrome coronavirus 2 (SARS-CoV-2) RNA [facility] This lab was ordered by [facility] and reported by . ID Date Data Source [id number] 12/24/2019 05:10:00 PM EDT [facility] Time Collected: 1632 [place] Result: 23 5 Name Value Range Interpretation Code Description Data Beryl rce(s) Supporting Document(s) LAB Glucose,Fingerstick 235 mg/dL 61-115 Above high normal [facility] ID Date Data Source [id number] 12/24/2019 07:11:00 PM EDT [facility] First test? NOEmployed in healthcare? NOSymptomatic per CDC? NOHospitalized? YESICU? NOResident in congregated care? ex skilled nursing, [facility] YES? NO Name Value Range Interpretation Code Description Data Beryl rce(s) Supporting Document(s) SARS-CoV-2 RNA Negative Normal (applies to non-numeric r esults) [facility] Negative results should be treated as pr esumptive and, if inconsistent with clinical signs and symptoms or necessary for patient management, should be tested with different authorized or cleared molecular tests. Negative results do not preclude SARS-CoV-2 infection and should not be used as the sole basis for patient management decisions. Negative results should be considered in the context of a patient???s recent exposures, history and the presence of clinical signs and symptoms consistent with COVID-19. This test has not been FDA cleared or approved; this test has been authorized by FDA under an Emergency Use Authorization for use by laboratories certified under the Clinical Laboratory Improvement Amendments of 1988 (CLIA), 42 U.S.C. ???263a, to perform moderate complexity/high complexity tests and at the Point of Care (POC), i.e., in patient care settings operating under a CLIA Certificate of Waiver, Certificate of Compliance, or Certificate of Accreditation. Factsheets for healthcare providers: https://www.fda.gov/media/044224/download Factsheets for patients: https://www.fda.gov/media/994730/download THIS IS A STATE REPORTABLE COMMUNICABLE DISEASE. Manual entry verified by Francheska Sevilla 12/24/191909 ID Date Data Source [id number] 12/24/2019 11:39:00 AM [facility] Time Collected: 1126 Gluf[place] Result: 20 5 Name Value Range Interpretation Code Description Data Beryl rce(s) Supporting Document(s) LAB Glucose,Fingerstick 205 mg/dL 61-115 Above high normal [facility] ID Date Data Source [id number] 12/24/2019 08:52:00 AM [facility] Time Collected: 0745 [place] Result: 83 Name Value Range Interpretation Code Description Data Beryl rce(s) Supporting Document(s) LAB Glucose,Fingerstick 83 mg/dL 61-115 Normal (applies t o non-numeric results) [facility] ID Date Data Source [id number] 12/23/2019 08:38:00 PM [facility] Time Collected: 1999 [place] Result: 15 6 Name Value Range Interpretation Code Description Data Beryl rce(s) Supporting Document(s) LAB Glucose,Fingerstick 156 mg/dL 61-115 Above high normal [facility] ID Date Data Source [id number] 12/23/2019 04:46:00 PM [facility] [place] Result: 194 Name Value Range Interpretation Code Description Data Beryl rce(s) Supporting Document(s) LAB Glucose,Fingerstick 194 mg/dL 61-115 Above high normal [facility] ID Date Data Source [id number] 12/23/2019 11:45:00 AM [facility] [place] Result: 199 Name Value Range Interpretation Code Description Data Beryl rce(s) Supporting Document(s) LAB Glucose,Fingerstick 225 mg/dL 61-115 Above high normal [facility] ID Date Data Source [id number] 12/23/2019 08:08:00 AM [facility] [place] Result: 86 Name Value Range Interpretation Code Description Data Beryl rce(s) Supporting Document(s) LAB Glucose,Fingerstick 86 mg/dL 61-115 Normal (applies t o non-numeric results) [facility] ID Date Data Source [id number] 12/22/2019 09:50:00 PM [facility] [place] Result: 223 Name Value Range Interpretation Code Description Data Beryl rce(s) Supporting Document(s) LAB Glucose,Fingerstick 223 mg/dL 61-115 Above high normal [facility] ID Date Data Source [id number] 12/22/2019 05:08:00 PM [facility] Gluf[place] Result: 194 Name Value Range Interpretation Code Description Data Beryl rce(s) Supporting Document(s) LAB Glucose,Fingerstick 194 mg/dL 61-115 Above high normal [facility] ID Date Data Source [id number] 12/22/2019 12:25:00 PM [facility] [place] Result: 169 Name Value Range Interpretation Code Description Data Beryl rce(s) Supporting Document(s) LAB Glucose,Fingerstick 169 mg/dL 61-115 Above high normal [facility] ID Date Data Source [id number] 12/22/2019 08:25:00 AM [facility] [place] Result: 146 Name Value Range Interpretation Code Description Data Beryl rce(s) Supporting Document(s) LAB Glucose,Fingerstick 146 mg/dL 61-115 Above high normal [facility] ID Date Data Source [id number] 12/21/2019 10:21:00 PM [facility] [place]uf[place] Result: 172 Name Value Range Interpretation Code Description Data Beryl rce(s) Supporting Document(s) LAB Glucose,Fingerstick 172 mg/dL 61-115 Above high [facility] ID Date Data Source [id number] 12/21/2019 05:05:00 PM [facility] Time Collected: 1641 [place] Result: 21 4 Name Value Range Interpretation Code Description Data Beryl rce(s) Supporting Document(s) LAB Glucose,Fingerstick 214 mg/dL 61-[address] [facility] ID Date Data Source [id number] 12/21/2019 12:14:00 PM [facility] Time Collected: 1142 [place] Result: 10 2 Name Value Range Interpretation Code Description Data Beryl rce(s) Supporting Document(s) LAB Glucose,Fingerstick 102 mg/dL 61-115 Normal ( applies to non-numeric results) [facility] ID Date Data Source [id number] 12/21/2019 11:22:00 AM [facility] Name Value Range Interpretation Code Description Data Beryl rce(s) Supporting Document(s) Sodium 137 mmol/L 136-145 Normal (applies to non-numeric resul ts) [facility] Potassium 3.5-5.1 Normal (applies to non-numeric resul ts) [facility] Chloride 102 mmol/L 98-107 Normal (applies to non-numeric resul ts) [facility] Carbon Dioxide CO2 21-32 Normal (applies to non-numer ic results) [facility] Anion Gap 5.0-16.0 Below low normal [facility] spital BUN 20 mg/dL 7-18 Above high normal [facility] ospital Creatinine,Serum 0.7-1.2 Normal (applies to non-numeric results) [facility] GFR 45 mL/min >60 Below low normal [facility] spital Glucose Level 107 mg/dL 60-99 Above high normal [facility] Reference range is only applicable when patient is fasting Note the following drug interference: Sulfasalazine Sulfapyridine Can see falsely depressed Can see falsely elevated result with up to 17% results with up to 11% decrease in measurement increase in measurement Recommend patients be collected for this test prior to administration of either drug. Calcium 8.5-10.1 Normal (applies to non-numeric resul ts) [facility] ID Date Data Source [id number] 12/21/2019 11:21:00 AM EDT [facility] Name Value Range Interpretation Code Description Data Beryl rce(s) Supporting Document(s) Ammonia 42 umol/L 11-32 Above high normal [facility] ospital Note the following drug interference: Sulfasalazine Sulfapyridine Can see falsely elevated Can see falsely depressed result with up to 10% results with up to 19% increase in measurement decrease in measurement Recommend patients be collected for this test prior to administration of either drug. ID Date Data Source [id number] 12/21/2019 11:11:00 AM T [facility] Name Value Range Interpretation Code Description Data Beryl rce(s) Supporting Document(s) White Blood Count 3.5-10.5 Normal (applies to non-numeri c results) [facility] Red Blood Count 3.90-5.00 Below low normal [facility] Hemoglobin 12.0-15.5 Below low normal [facility] ospital Hematocrit 34.9-44.5 Below low normal [facility] ospital Mean Corpuscular Volume 81.2-95.1 Above high normal [facility] Mean Corpuscular Hgb 25.6-32.2 Normal (applies to non-num omer results) [facility] Mean Corpuscular Hgb Conc 32.0-36.0 Below low normal [facility] Red Cell Distribution Width 11.9-15.5 Above high normal [facility] Platelet Count 180 x10 3/uL 150-450 Normal (applies to non-numeric results) [facility] Mean Platelet Volume 9.4-12.4 Normal (applies to non-num omer results) [facility] Neutrophils% (Auto) 31.0-71.0 Normal (applies to non-nume ronaldo results) [facility] Lymphocytes% (Auto) 20.0-55.0 Below low normal [facility] Monocytes% (Auto) 4.0-12.0 Above high normal [facility] Eosinophils% (Auto) 1.0-8.0 Normal (applies to non-nume ronaldo results) [facility] Basophils% (Auto) 0.0-2.0 Normal (applies to non-numeri c results) [facility] Immature Granulocytes% (Auto) 0.0-2.0 Normal (juan lies to non-numeric results) [facility] Neutrophils# (Auto) 1.50-6.20 Normal (applies to non-nume ronaldo results) [facility] Lymphocytes# (Auto) 1.20-4.00 Below low normal [facility] Monocytes# (Auto) 0.00-0.90 Normal (applies to non-numeri c results) [facility] Eosinophils# (Auto) 0.00-0.50 Normal (applies to non-nume ronaldo results) [facility] Basophils# (Auto) 0.00-0.20 Normal (applies to non-numeri c results) [facility] Immature Granulocytes# (Auto) 0.00-7.00 No rmal (applies to non-numeric results) [facility] ID Date Data Source [id number] 12/21/2019 08:03:00 AM EDT [facility] Time Collected: 725 Gluf[place] Result: 80 Name Value Range Interpretation Code Description Data Beryl rce(s) Supporting Document(s) LAB Glucose,Fingerstick 80 mg/dL 61-115 Normal (applies t o non-numeric results) [facility] ID Date Data Source [id number] 12/20/2019 11:01:00 PM [facility] Time Collected: 1999 [place] Result: 15 2 Name Value Range Interpretation Code Description Data Beryl rce(s) Supporting Document(s) LAB Glucose,Fingerstick 152 mg/dL 61-115 Above high normal [facility] ID Date Data Source [id number] 12/20/2019 05:12:00 PM [facility] Gluf[place] Result: 363 Name Value Range Interpretation Code Description Data Beryl rce(s) Supporting Document(s) LAB Glucose,Fingerstick 363 mg/dL 61-115 Above high normal [facility] ID Date Data Source [id number] 12/20/2019 11:37:00 AM [facility] Time Collected: 1119 [place] Result: 33 2 Name Value Range Interpretation Code Description Data Beryl rce(s) Supporting Document(s) LAB Glucose,Fingerstick 332 mg/dL 61-115 Above high normal [facility] ID Date Data Source [id number] 12/20/2019 07:26:00 AM [facility] [place] Result: 140 Name Value Range Interpretation Code Description Data Beryl rce(s) Supporting Document(s) LAB Glucose,Fingerstick 140 mg/dL 61-115 Above high [facility] ID Date Data Source [id number] 12/21/2019 02:56:00 PM [facility] spital Collected By: Nurse Initials: AT Time Collected: 714 Collected By: Nurse Initials: AT Time Collected: 714 Procedure Performed By: [facility] [address] [place] [address] Director: Shruthi Arriaga MD Mixed siva: Mixed siva, probable contamination. Name Value Range Interpretation Code Description Data Beryl rce(s) Supporting Document(s) ID Date Data Source [id number] 12/21/2019 02:29:00 PM EDT [facility] Collected By: Nurse Initials: AT Time Collected: 714 Procedure Performed By: [facility] [address] [place] [address] Director: Shruthi Arriaga MD Name Value Range Interpretation Code Description Data Beryl rce(s) Supporting Document(s) Urine Culture Normal (applies to non-numeric re sults) [facility] ID Date Data Source [id number] 12/20/2019 07:49:00 AM EDT [facility] Collected By: Nurse Initials: AT Time Collected: 714 Name Value Range Interpretation Code Description Data Beryl rce(s) Supporting Document(s) Color,Urine Colorl-Dk Y Normal (applies to non-numeric res ults) [facility] Clarity,Urine Clear Normal (applies to non-numeric re sults) [facility] Specific [place],Urine 1.005-1.030 Normal (applies to non- numeric results) [facility] pH,Urine 5.0-8.0 Normal (applies to non-numeric resul ts) [facility] Protein,Urine Negative Normal (applies to non-numeric re sults) [facility] Glucose,Urine Negative Normal (applies to non-numeric re sults) [facility] Ketones,Urine Negative Normal (applies to non-numeric re sults) [facility] Blood,Urine Negative [facility] Bil[facility],Urine Negative Normal (applies to non-numeric results) [facility] Urobilinogen,Urine 0.2-1.0 Normal (applies to non-numer ic results) [facility] Leukocyte Esterase,Urine Negative Normal (applies to non -numeric results) [facility] Nitrite,Urine Negative Normal (applies to non-numeric re sults) [facility] RBC,Urine None Seen [facility] WBC,Urine None Seen Normal (applies to non-numeric resul ts) [facility] Casts,Urine None Seen Normal (applies to non-numeric resu lts) [facility] Epithelial Cells,Urine None - Few Normal (applies to non-n umeric results) [facility] Bacteria,Urine None Seen [facility] ital ID Date Data Source [id number] 12/19/2019 09:31:00 PM [facility] Time Collected: 2099 Gluf[place] Result: 12 8 Name Value Range Interpretation Code Description Data Beryl rce(s) Supporting Document(s) LAB Glucose,Fingerstick 128 mg/dL 61-115 Above high normal [facility] ID Date Data Source [id number] 12/19/2019 05:21:00 PM [facility] [place] Result: 192 Name Value Range Interpretation Code Description Data Beryl rce(s) Supporting Document(s) LAB Glucose,Fingerstick 192 mg/dL 61-115 Above high normal [facility] ID Date Data Source [id number] 12/19/2019 11:24:00 AM [facility] [place] Result: 202 Name Value Range Interpretation Code Description Data Beryl rce(s) Supporting Document(s) LAB Glucose,Fingerstick 202 mg/dL 61-115 Above high normal [facility] ID Date Data Source [id number] 12/19/2019 07:34:00 AM [facility] [place] Result: 86 Name Value Range Interpretation Code Description Data Beryl rce(s) Supporting Document(s) LAB Glucose,Fingerstick 86 mg/dL 61-115 Normal (applies t o non-numeric results) [facility] ID Date Data Source [id number] 12/18/2019 08:23:00 PM [facility] Time Collected: 1999 [place] Result: 21 6 Name Value Range Interpretation Code Description Data Beryl rce(s) Supporting Document(s) LAB Glucose,Fingerstick 216 mg/dL 61-115 Above high normal [facility] ID Date Data Source [id number] 12/18/2019 06:06:00 PM [facility] [place] Result: 285 Name Value Range Interpretation Code Description Data Beryl rce(s) Supporting Document(s) LAB Glucose,Fingerstick 285 mg/dL 61-115 Above high normal [facility] ID Date Data Source [id number] 12/18/2019 01:05:00 PM EDT [facility] Time Collected: 1140 [place] Result: 18 6 Name Value Range Interpretation Code Description [facility](s) LAB Glucose,Fingerstick 186 mg/dL 61-115 Above high normal [facility] ID Date Data Source [id number] 12/18/2019 08:04:00 AM EDT [facility] Name Value Range Interpretation Code Description Data [facility] Supporting Document(s) White Blood Count 3.5-10.5 Normal (applies to non-numeri c results) [facility] Red Blood Count 3.90-5.00 Below low normal [facility] Hemoglobin 12.0-15.5 Below low normal [facility] ospital Hematocrit 34.9-44.5 Below low normal [facility] Mean Corpuscular Volume 81.2-95.1 Above high normal [facility] Mean Corpuscular Hgb 25.6-32.2 Normal (applies to non-num omer results) [facility] Mean Corpuscular Hgb Conc 32.0-36.0 Below low normal [facility] Red Cell Distribution Width 11.9-15.5 Above high normal [facility] Platelet Count 178 x10 3/uL 150-450 Normal (applies to non-numeric results) [facility] Mean Platelet Volume 9.4-12.4 Normal (applies to non-num omer results) [facility] Neutrophils% (Auto) 31.0-71.0 Normal (applies to non-nume ronaldo results) [facility] Lymphocytes% (Auto) 20.0-55.0 Below low normal [facility] Monocytes% (Auto) 4.0-12.0 Above high normal [facility] Eosinophils% (Auto) 1.0-8.0 Normal (applies to non-nume ronaldo results) [facility] Basophils% (Auto) 0.0-2.0 Normal (applies to non-numeri c results) [facility] Immature Granulocytes% (Auto) 0.0-2.0 Normal (juan lies to non-numeric results) [facility] Neutrophils# (Auto) 1.50-6.20 Normal (applies to non-nume ronaldo results) [facility] Lymphocytes# (Auto) 1.20-4.00 Below low normal [facility] Monocytes# (Auto) 0.00-0.90 Normal (applies to non-numeri c results) [facility] Eosinophils# (Auto) 0.00-0.50 Normal (applies to non-nume ronaldo results) [facility] Basophils# (Auto) 0.00-0.20 Normal (applies to non-numeri c results) [facility] Immature Granulocytes# (Auto) 0.00-7.00 No rmal (applies to non-numeric results) [facility] Slide Reviewed By Normal (applies to non-numeri c results) [facility] Slide has been reviewed and findings con firmed by a technologist/nurse technician. ID Date Data Source [id number] 12/18/2019 08:04:00 AM EDT [facility] Name Value Range Interpretation Code Description Data Beryl rce(s) Supporting Document(s) Platelet Estimate (Manual) Agreement Normal (applie s to non-numeric results) [facility] Hypochromasia (Manual) Not Present [facility] ID Date Data Source [id number] 12/18/2019 07:44:00 AM [facility] Name Value Range Interpretation Code Description Data Beryl rce(s) Supporting Document(s) Sodium 136 mmol/L 136-145 Normal (applies to non-numeric resul ts) [facility] Potassium 3.5-5.1 Normal (applies to non-numeric resul ts) [facility] Chloride 101 mmol/L 98-107 Normal (applies to non-numeric resul ts) [facility] Carbon Dioxide CO2 21-32 Normal (applies to non-numer ic results) [facility] Anion Gap 5.0-16.0 Normal (applies to non-numeric resul ts) [facility] BUN 18 mg/dL 7-18 Normal (applies to non-numeric results) [facility] Creatinine,Serum 0.7-1.2 Normal (applies to non-numeric results) [facility] GFR 50 mL/min >60 Below low normal [facility] spital Glucose Level 124 mg/dL 60-99 Above high normal [facility] Reference range is only applicable when patient is fasting Note the following drug interference: Sulfasalazine Sulfapyridine Can see falsely depressed Can see falsely elevated result with up to 17% results with up to 11% decrease in measurement increase in measurement Recommend patients be collected for this test prior to administration of either drug. Calcium 8.5-10.1 Normal (applies to non-numeric resul ts) [facility] ID Date Data Source [id number] 12/17/2019 09:30:00 PM [facility] Time Collected: 1999 [place] Result: 15 7 Name Value Range Interpretation Code Description Data Beryl rce(s) Supporting Document(s) LAB Glucose,Fingerstick 157 mg/dL 61-115 Above high normal [facility] ID Date Data Source [id number] 12/17/2019 05:00:00 PM [facility] [place] Result: 152 Name Value Range Interpretation Code Description Data Beryl rce(s) Supporting Document(s) LAB Glucose,Fingerstick 152 mg/dL 61-115 Above high normal [facility] ID Date Data Source [id number] 12/17/2019 12:53:00 PM [facility] [place] Result: 246 Name Value Range Interpretation Code Description Data Beryl rce(s) Supporting Document(s) LAB Glucose,Fingerstick 246 mg/dL 61-115 Above high normal [facility] ID Date Data Source [id number] 12/17/2019 08:15:00 AM [facility] [place] Result: 78 Name Value Range Interpretation Code Description Data Beryl rce(s) Supporting Document(s) LAB Glucose,Fingerstick 78 mg/dL 61-115 Normal (applies t o non-numeric results) [facility] ID Date Data Source [id number] 12/16/2019 11:04:00 PM [facility] [place] Result: 149 Name Value Range Interpretation Code Description Data Beryl rce(s) Supporting Document(s) LAB Glucose,Fingerstick 149 mg/dL 61-115 Above high normal [facility] ID Date Data Source [id number] 12/16/2019 05:21:00 PM [facility] Time Collected: 1625 [place] Result: 17 1 Name Value Range Interpretation Code Description Data Beryl rce(s) Supporting Document(s) LAB Glucose,Fingerstick 171 mg/dL 61-115 Above high normal [facility] ID Date Data Source [id number] 12/16/2019 11:17:00 AM [facility] Time Collected: 1113 [place] Result: 10 7 Name Value Range Interpretation Code Description Data Beryl rce(s) Supporting Document(s) LAB Glucose,Fingerstick 107 mg/dL 61-115 Normal ( applies to non-numeric results) [facility] ID Date Data Source [id number] 12/16/2019 07:49:00 AM [facility] Time Collected: 729 [place] Result: 71 Name Value Range Interpretation Code Description Data Beryl rce(s) Supporting Document(s) LAB Glucose,Fingerstick 71 mg/dL 61-115 Normal (applies t o non-numeric results) [facility] ID Date Data Source [id number] 12/15/2019 08:17:00 PM [facility] Time Collected: 1999 [place] Result: 29 7 Name Value Range Interpretation Code Description Data Beryl rce(s) Supporting Document(s) LAB Glucose,Fingerstick 297 mg/dL 61-115 Above high normal [facility] ID Date Data Source [id number] 12/15/2019 04:54:00 PM [facility] [place] Result: 223 Name Value Range Interpretation Code Description Data Beryl rce(s) Supporting Document(s) LAB Glucose,Fingerstick 223 mg/dL 61-115 Above high normal [facility] ID Date Data Source [id number] 12/15/2019 12:08:00 PM [facility] [place] Result: 219 Name Value Range Interpretation Code Description Data Beryl rce(s) Supporting Document(s) LAB Glucose,Fingerstick 219 mg/dL 61-[address] [facility] ID Date Data Source [id number] 12/15/2019 09:13:00 AM [facility] [place] Result: 120 Name Value Range Interpretation Code Description Data Beryl rce(s) Supporting Document(s) LAB Glucose,Fingerstick 120 mg/dL 61-[address] [facility] ID Date Data Source [id number] 12/14/2019 08:29:00 PM [facility] Time Collected: 1999 [place] Result: 13 5 Name Value Range Interpretation Code Description Data Beryl rce(s) Supporting Document(s) LAB Glucose,Fingerstick 135 mg/dL 61-[address] [facility] ID Date Data Source [id number] 12/14/2019 05:10:00 PM [facility] [place] Result: 176 Name Value Range Interpretation Code Description Data Beryl rce(s) Supporting Document(s) LAB Glucose,Fingerstick 176 mg/dL 61-[address] [facility] ID Date Data Source [id number] 12/14/2019 12:00:00 PM [facility] [place] Result: 208 Name Value Range Interpretation Code Description Data Beryl rce(s) Supporting Document(s) LAB Glucose,Fingerstick 208 mg/dL 61-[address] [facility] ID Date Data Source [id number] 12/14/2019 07:40:00 AM [facility] [place] Result: 166 Name Value Range Interpretation Code Description Data Beryl rce(s) Supporting Document(s) LAB Glucose,Fingerstick 166 mg/dL 61-[address] [facility] ID Date Data Source [id number] 12/13/2019 09:29:00 PM [facility] Time Collected: 2099 [place] Result: 88 Name Value Range Interpretation Code Description Data Beryl rce(s) Supporting Document(s) LAB Glucose,Fingerstick 88 mg/dL 61-115 Normal (applies t o non-numeric results) [facility] ID Date Data Source [id number] 12/13/2019 04:55:00 PM [facility] [place] Result: 238 Name Value Range Interpretation Code Description Data Beryl rce(s) Supporting Document(s) LAB Glucose,Fingerstick 238 mg/dL 61-115 Above high normal [facility] ID Date Data Source [id number] 12/13/2019 11:25:00 AM [facility] [place] Result: 208 Name Value Range Interpretation Code Description Data Beryl rce(s) Supporting Document(s) LAB Glucose,Fingerstick 208 mg/dL 61-115 Above high normal [facility] ID Date Data Source [id number] 12/13/2019 07:40:00 AM [facility] [place] Result: 108 Name Value Range Interpretation Code Description Data Beryl rce(s) Supporting Document(s) LAB Glucose,Fingerstick 108 mg/dL 61-115 Normal ( applies to non-numeric results) [facility] ID Date Data Source [id number] 12/12/2019 11:01:00 PM [facility] Time Collected: 2099 [place] Result: 17 8 Name Value Range Interpretation Code Description Data Beryl rce(s) Supporting Document(s) LAB Glucose,Fingerstick 178 mg/dL 61-115 Above high normal [facility] ID Date Data Source [id number] 12/12/2019 04:55:00 PM [facility] Time Collected: 1627 [place] Result: 21 8 Name Value Range Interpretation Code Description Data Beryl rce(s) Supporting Document(s) LAB Glucose,Fingerstick 218 mg/dL 61-115 Above high normal [facility] ID Date Data Source [id number] 12/12/2019 11:33:00 AM [facility] Time Collected: 1128 [place] Result: 32 1 Name Value Range Interpretation Code Description Data Beryl rce(s) Supporting Document(s) LAB Glucose,Fingerstick 321 mg/dL 61-115 Above high normal [facility] ID Date Data Source [id number] 12/12/2019 09:37:00 AM [facility] Time Collected: 0730 [place] Result: 10 9 Name Value Range Interpretation Code Description Data Beryl rce(s) Supporting Document(s) LAB Glucose,Fingerstick 109 mg/dL 61-115 Normal ( applies to non-numeric results) [facility] ID Date Data Source [id number] 12/11/2019 11:59:00 PM [facility] Time Collected: 2100 [place] Result: 23 1 Name Value Range Interpretation Code Description Data Beryl rce(s) Supporting Document(s) LAB Glucose,Fingerstick 231 mg/dL 61-115 Above high normal [facility] ID Date Data Source [id number] 12/11/2019 05:30:00 PM [facility] [place] Result: 220 Name Value Range Interpretation Code Description Data Beryl rce(s) Supporting Document(s) LAB Glucose,Fingerstick 220 mg/dL 61-115 [facility] normal [facility] ID Date Data Source [id number] 12/11/2019 12:36:00 PM [facility] [place] Result: 239 Name Value Range Interpretation Code Description Data Beryl rce(s) Supporting Document(s) LAB Glucose,Fingerstick 239 mg/dL 61-115 [facility] normal [facility] ID Date Data Source [id number] 12/11/2019 07:50:00 AM [facility] [place] Result: 83 Name Value Range Interpretation Code Description Data Beryl rce(s) Supporting Document(s) LAB Glucose,Fingerstick 83 mg/dL 61-115 Normal (applies t o non-numeric results) [facility] ID Date Data Source [id number] 12/10/2019 08:29:00 PM [facility] Time Collected: 1999 [place] Result: 14 0 Name Value Range Interpretation Code Description Data Beryl rce(s) Supporting Document(s) LAB Glucose,Fingerstick 140 mg/dL 61-115 Above high normal [facility] ID Date Data Source [id number] 12/10/2019 06:47:00 PM [facility] Time Collected: 1649 [place] Result: 16 7 Name Value Range Interpretation Code Description Data Beryl rce(s) Supporting Document(s) LAB Glucose,Fingerstick 167 mg/dL 61-115 Above high normal [facility] ID Date Data Source [id number] 12/10/2019 11:58:00 AM [facility] [place] Result: 324 Name Value Range Interpretation Code Description Data Beryl rce(s) Supporting Document(s) LAB Glucose,Fingerstick 324 mg/dL 61-115 Above high normal [facility] ID Date Data Source [id number] 12/10/2019 10:06:00 AM [facility] [place] Result: 140 Name Value Range Interpretation Code Description Data Beryl rce(s) Supporting Document(s) LAB Glucose,Fingerstick 140 mg/dL 61-115 [facility] normal [facility] ID Date Data Source [id number] 12/09/2019 10:07:00 PM [facility] Time Collected: 1999 [place] Result: 15 5 Name Value Range Interpretation Code Description Data Beryl rce(s) Supporting Document(s) LAB Glucose,Fingerstick 155 mg/dL 61-115 Above high normal [facility] ID Date Data Source [id number] 12/09/2019 05:07:00 PM [facility] [place] Result: 110 Name Value Range Interpretation Code Description Data Beryl rce(s) Supporting Document(s) LAB Glucose,Fingerstick 110 mg/dL 61-115 Normal ( applies to non-numeric results) [facility] ID Date Data Source [id number] 12/09/2019 11:41:00 AM [facility] [place] Result: 254 Name Value Range Interpretation Code Description Data Beryl rce(s) Supporting Document(s) LAB Glucose,Fingerstick 254 mg/dL 61-115 Above high normal [facility] ID Date Data Source [id number] 12/09/2019 08:08:00 AM [facility] Time Collected: 0744 [place] Result: 73 Name Value Range Interpretation Code Description Data Beryl rce(s) Supporting Document(s) LAB Glucose,Fingerstick 73 mg/dL 61-115 Normal (applies t o non-numeric results) [facility] ID Date Data Source [id number] 12/08/2019 08:44:00 PM [facility] Time Collected: 1999 [place] Result: 25 9 Name Value Range Interpretation Code Description Data Beryl rce(s) Supporting Document(s) LAB Glucose,Fingerstick 259 mg/dL 61-[address] [facility] ID Date Data Source [id number] 12/08/2019 05:19:00 PM [facility] Time Collected: 1608 [place] Result: 23 3 Name Value Range Interpretation Code Description Data Ebryl rce(s) Supporting Document(s) LAB Glucose,Fingerstick 233 mg/dL 61-[address] [facility] ID Date Data Source [id number] 12/08/2019 11:24:00 AM [facility] Time Collected: 1106 [place] Result: 16 0 Name Value Range Interpretation Code Description Data Beryl rce(s) Supporting Document(s) LAB Glucose,Fingerstick 160 mg/dL 61-115 Above high [facility] ID Date Data Source [id number] 12/08/2019 07:57:00 AM [facility] Time Collected: 0718 [place] Result: 12 6 Name Value Range Interpretation Code Description Data Beryl rce(s) Supporting Document(s) LAB Glucose,Fingerstick 126 mg/dL 61-[address] [facility] ID Date Data Source [id number] 12/08/2019 01:34:00 AM [facility] [place] Result: 368 Name Value Range Interpretation Code Description Data Beryl rce(s) Supporting Document(s) LAB Glucose,Fingerstick 368 mg/dL 61-[address] [facility] ID Date Data Source [id number] 12/07/2019 09:08:00 PM [facility] Time Collected: 2037 [place] Result: 36 8 Name Value Range Interpretation Code Description Data Beryl rce(s) Supporting Document(s) LAB Glucose,Fingerstick 368 mg/dL 61-[address] [facility] ID Date Data Source [id number] 12/07/2019 06:33:00 PM [facility] Time Collected: 163 [place] Result: 34 6 Name Value Range Interpretation Code Description Data Beryl rce(s) Supporting Document(s) LAB Glucose,Fingerstick 346 mg/dL 61-[address] [facility] ID Date Data Source [id number] 12/07/2019 03:05:00 PM [facility] Time Collected: 1130 [place] Result: 24 9 Name Value Range Interpretation Code Description Data Beryl rce(s) Supporting Document(s) LAB Glucose,Fingerstick 249 mg/dL 61-[address] [facility] ID Date Data Source [id number] 12/07/2019 10:21:00 AM [facility] Time Collected: 07 [place] Result: 12 5 Name Value Range Interpretation Code Description Data Beryl rce(s) Supporting Document(s) LAB Glucose,Fingerstick 125 mg/dL 61-[address] [facility] ID Date Data Source [id number] 12/06/2019 08:05:00 PM [facility] Time Collected: 1999 [place] Result: 32 9 Name Value Range Interpretation Code Description Data Beryl rce(s) Supporting Document(s) LAB Glucose,Fingerstick 329 mg/dL 61-[address] [facility] ID Date Data Source [id number] 12/06/2019 05:44:00 PM [facility] Time Collected: 1630 [place] Result: 27 6 Name Value Range Interpretation Code Description Data Beryl rce(s) Supporting Document(s) LAB Glucose,Fingerstick 276 mg/dL 61-115 Above high normal [facility] ID Date Data Source [id number] 12/06/2019 12:41:00 PM [facility] Time Collected: 1125 [place] Result: 25 6 Name Value Range Interpretation Code Description Data Beryl rce(s) Supporting Document(s) LAB Glucose,Fingerstick 256 mg/dL 61-115 Above high [facility] ID Date Data Source [id number] 12/06/2019 08:14:00 AM [facility] Time Collected: 0750 [place] Result: 16 1 Name Value Range Interpretation Code Description Data Beryl rce(s) Supporting Document(s) LAB Glucose,Fingerstick 161 mg/dL 61-[address] [facility] ID Date Data Source [id number] 12/05/2019 06:12:00 PM [facility] Name Value Range Interpretation Code Description Data Beryl rce(s) Supporting Document(s) Glucose Level 540 mg/dL 60-99 [facility] read back critical information 1811 LAB.OG Reference range is only applicable when patient is fasting Note the following drug interference: Sulfasalazine Sulfapyridine Can see falsely depressed Can see falsely elevated result with up to 17% results with up to 11% decrease in measurement increase in measurement Recommend patients be collected for this test prior to administration of either drug. ID Date Data Source [id number] 12/05/2019 05:36:00 PM [facility] [place] Result: too high to read Name Value Range Interpretation Code Description Data Beryl rce(s) Supporting Document(s) LAB Glucose,Fingerstick 61-115 [facility] Fingerstick Glucose exceeds Point of Car e testing limit. Specimen sent to Lab for confirmation. ID Date Data Source [id number] 12/05/2019 07:52:00 AM [facility] Name Value Range Interpretation Code Description Data Beryl rce(s) Supporting Document(s) Sodium 133 mmol/L 136-145 Below low normal [facility]spital Potassium 3.5-5.1 Normal (applies to non-numeric resul ts) [facility] Chloride 96 mmol/L 98-107 Below low normal [facility] spital Carbon Dioxide CO2 21-32 Normal (applies to non-numer ic results) [facility] Anion Gap 5.0-16.0 Normal (applies to non-numeric resul ts) [facility] BUN 22 mg/dL 7-18 Above high normal [facility] ospital Creatinine,Serum 0.7-1.2 Above high normal [facility] GFR 38 mL/min >60 Below low normal [facility] spital Glucose Level 190 mg/dL 60-99 Above high normal [facility] Reference range is only applicable when patient is fasting Note the following drug interference: Sulfasalazine Sulfapyridine Can see falsely depressed Can see falsely elevated result with up to 17% results with up to 11% decrease in measurement increase in measurement Recommend patients be collected for this test prior to administration of either drug. Calcium 8.5-10.1 Normal (applies to non-numeric resul ts) [facility] Bilirubin,Total 0.1-1.9 Above high normal [facility] SGOT(AST) 28 U/L 15-37 Normal (applies to non-numeric resul ts) [facility] Note the following drug interference: Sulfasalazine Sulfapyridine Can see falsely depressed Can see falsely elevated result with up to 10% results with up to 10% decrease in measurement increase in measurement Recommend patients be collected for this test prior to administration of either drug. SGPT(ALT) 12 U/L 12-78 Normal (applies to non-numeric resul ts) [facility] Note the following drug interference: Sulfasalazine Sulfapyridine Can see falsely depressed Can see falsely elevated result with up to 29% results with up to 10% decrease in measurement increase in measurement Recommend patients be collected for this test prior to administration of either drug. Alkaline Phosphatase 457 U/L 38-126 Above high normal [facility] can increase Alkaline Phosp le vels up to 2 times the normal adult value. Normal values for children and adolescents are 2 to 3 times the normal adult value. Total Protein 6.0-8.2 Normal (applies to non-numeric re sults) [facility] Albumin Level 3.4-5.0 Below low normal [facility] ID Date Data Source [id number] 12/05/2019 07:52:00 AM EDT [facility] Name Value Range Interpretation Code Description Data Beryl rce(s) Supporting Document(s) Magnesium 1.8-2.4 Normal (applies to non-numeric resul ts) [facility] ID Date Data Source [id number] 12/05/2019 07:39:00 AM EDT [facility] Name Value Range Interpretation Code Description Data Beryl rce(s) Supporting Document(s) White Blood Count 3.5-10.5 Normal (applies to non-numeri c results) [facility] Red Blood Count 3.90-5.00 Below low normal [facility] Hemoglobin 12.0-15.5 Below low normal [facility] Hematocrit 34.9-44.5 Below low normal [facility] Mean Corpuscular Volume 81.2-95.1 Above high normal [facility] Mean Corpuscular Hgb 25.6-32.2 Normal (applies to non-num omer results) [facility] Mean Corpuscular Hgb Conc 32.0-36.0 Below low normal [facility] Red Cell Distribution Width 11.9-15.5 Above high normal [facility] Platelet Count 216 x10 3/uL 150-450 Normal (applies to non-numeric results) [facility] Mean Platelet Volume 9.4-12.4 Normal (applies to non-num omer results) [facility] Neutrophils% (Auto) 31.0-71.0 Normal (applies to non-nume ronaldo results) [facility] Lymphocytes% (Auto) 20.0-55.0 Below low normal [facility] Monocytes% (Auto) 4.0-12.0 Above high normal [facility] Eosinophils% (Auto) 1.0-8.0 Normal (applies to non-nume ronaldo results) [facility] Basophils% (Auto) 0.0-2.0 Normal (applies to non-numeri c results) [facility] Immature Granulocytes% (Auto) 0.0-2.0 Normal (juan lies to non-numeric results) [facility] Neutrophils# (Auto) 1.50-6.20 Normal (applies to non-nume ronaldo results) [facility] Lymphocytes# (Auto) 1.20-4.00 Below low normal [facility] Monocytes# (Auto) 0.00-0.90 Normal (applies to non-numeri c results) [facility] Eosinophils# (Auto) 0.00-0.50 Normal (applies to non-nume ronaldo results) [facility] Basophils# (Auto) 0.00-0.20 Normal (applies to non-numeri c results) [facility] Immature Granulocytes# (Auto) 0.00-7.00 No rmal (applies to non-numeric results) [facility] Slide Reviewed By Normal (applies to non-numeri c results) [facility] Slide has been reviewed and findings con firmed by a technologist/nurse technician. ID Date Data Source [id number] 12/11/2019 09:10:00 AM [facility] WANTS THIS ADDED ON TO THIS DRAW Name Value Range Interpretation Code Description Data [facility](s) Supporting Document(s) Vitamin D, Total 30.0-100.0 Normal (applies to non-numeric results) [facility] ID Date Data Source [id number] 12/05/2019 01:24:00 AM [facility] Time Collected: 2100 Glufin Result: 21 1 Name Value Range Interpretation Code Description Data [facility](s) Supporting Document(s) LAB Glucose,Fingerstick 211 mg/dL 61-115 Above high normal [facility] ID Date Data Source [id number] 12/04/2019 07:58:00 PM EDT [facility] Glufin Result: 227 Name Value Range Interpretation Code Description Data Beryl rce(s) Supporting Document(s) LAB Glucose,Fingerstick 227 mg/dL 61-115 Above high normal [facility] ID Date Data Source [id number] 12/04/2019 02:31:00 PM EDT [facility] Name Value Range Interpretation Code Description Data Beryl rce(s) Supporting Document(s) Sodium 133 mmol/L 136-145 Below low normal [facility] Potassium 3.5-5.1 Normal (applies to non-numeric resul ts) [facility] Chloride 95 mmol/L 98-107 Below low normal [facility] spital Carbon Dioxide CO2 21-32 Normal (applies to non-numer ic results) [facility] Anion Gap 5.0-16.0 Normal (applies to non-numeric resul ts) [facility] BUN 21 mg/dL 7-18 Above high normal [facility]ital Creatinine,Serum 0.7-1.2 Above high normal [facility] GFR 41 mL/min >60 Below low normal [facility] spital Glucose Level 244 mg/dL 60-99 Above high normal [facility] Reference range is only applicable when patient is fasting Note the following drug interference: Sulfasalazine Sulfapyridine Can see falsely depressed Can see falsely elevated result with up to 17% results with up to 11% decrease in measurement increase in measurement Recommend patients be collected for this test prior to administration of either drug. Calcium 8.5-10.1 Normal (applies to non-numeric resul ts) [facility] Bilirubin,Total 0.1-1.9 PH [facility] can Alan (ELROY)read back critical informat ion 12/04/19 1429 LAB.JAREN SGOT(AST) 34 U/L 15-37 Normal (applies to non-numeric resul ts) [facility] Note the following drug interference: Sulfasalazine Sulfapyridine Can see falsely depressed Can see falsely elevated result with up to 10% results with up to 10% decrease in measurement increase in measurement Recommend patients be collected for this test prior to administration of either drug. SGPT(ALT) 14 U/L 12-78 Normal (applies to non-numeric resul ts) [facility] Note the following drug interference: Sulfasalazine Sulfapyridine Can see falsely depressed Can see falsely elevated result with up to 29% results with up to 10% decrease in measurement increase in measurement Recommend patients be collected for this test prior to administration of either drug. Alkaline Phosphatase 540 U/L 38-126 Above high normal [facility] can increase Alkaline Phosp le vels up to 2 times the normal adult value. Normal values for children and adolescents are 2 to 3 times the normal adult value. Total Protein 6.0-8.2 Normal (applies to non-numeric re sults) [facility] Albumin Level 3.4-5.0 Below low normal [facility] ID Date Data Source [id number] 12/04/2019 02:15:00 PM EDT [facility] Name Value Range Interpretation Code Description Data Beryl rce(s) Supporting Document(s) White Blood Count 3.5-10.5 Normal (applies to non-numeri c results) [facility] Red Blood Count 3.90-5.00 Below low normal [facility] Hemoglobin 12.0-15.5 Below low normal [facility] Hematocrit 34.9-44.5 Below low normal [facility] Mean Corpuscular Volume 81.2-95.1 Above high normal [facility] Mean Corpuscular Hgb 25.6-32.2 Normal (applies to non-num omer results) [facility] Mean Corpuscular Hgb Conc 32.0-36.0 Below low normal [facility] Red Cell Distribution Width 11.9-15.5 Above high normal [facility] Platelet Count 232 x10 3/uL 150-450 Normal (applies to non-numeric results) [facility] Mean Platelet Volume 9.4-12.4 Normal (applies to non-num omer results) [facility] Neutrophils% (Auto) 31.0-71.0 Above high normal [facility] Lymphocytes% (Auto) 20.0-55.0 Below low normal [facility] Monocytes% (Auto) 4.0-12.0 Normal (applies to non-numeri c results) [facility] Eosinophils% (Auto) 1.0-8.0 Normal (applies to non-nume ronaldo results) [facility] Basophils% (Auto) 0.0-2.0 Normal (applies to non-numeri c results) [facility] Immature Granulocytes% (Auto) 0.0-2.0 Normal (juan lies to non-numeric results) [facility] Neutrophils# (Auto) 1.50-6.20 Normal (applies to non-nume ronaldo results) [facility] Lymphocytes# (Auto) 1.20-4.00 Below low normal [facility] Monocytes# (Auto) 0.00-0.90 Normal (applies to non-numeri c results) [facility] Eosinophils# (Auto) 0.00-0.50 Normal (applies to non-nume ronaldo results) [facility] Basophils# (Auto) 0.00-0.20 Normal (applies to non-numeri c results) [facility] Immature Granulocytes# (Auto) 0.00-7.00 No rmal (applies to non-numeric results) [facility] Slide Reviewed By Normal (applies to non-numeri c results) [facility] Slide has been reviewed and findings con firmed by a technologist/nurse technician. ID Date Data Source [id number] 12/04/2019 11:56:00 AM EDT [facility] Glufin Result: 265 Name Value Range Interpretation Code Description Data Beryl rce(s) Supporting Document(s) LAB Glucose,Fingerstick 265 mg/dL 61-115 Above high normal [facility] ID Date Data Source [id number] 12/04/2019 07:36:00 AM EDT [facility] Glufin Result: 193 Name Value Range Interpretation Code Description Data Beryl rce(s) Supporting Document(s) LAB Glucose,Fingerstick 193 mg/dL 61-115 Above high normal [facility] ID Date Data Source [id number] 12/03/2019 09:31:00 PM [facility] Time Collected: 2100 Glufin Result: 26 8 Name Value Range Interpretation Code Description Data Beryl rce(s) Supporting Document(s) LAB Glucose,Fingerstick 268 mg/dL 61-115 Above high normal [facility] ID Date Data Source [id number] 12/03/2019 06:46:00 PM [facility] Time Collected: 1630 Glufin Result: 23 7 Name Value Range Interpretation Code Description Data Beryl rce(s) Supporting Document(s) LAB Glucose,Fingerstick 237 mg/dL 61-115 Above high normal [facility] ID Date Data Source [id number] 12/03/2019 11:47:00 AM [facility] Time Collected: 1130 Glufin Result: 20 5 Name Value Range Interpretation Code Description Data Beryl rce(s) Supporting Document(s) LAB Glucose,Fingerstick 205 mg/dL 61-115 Above high normal [facility] ID Date Data Source [id number] 12/03/2019 07:47:00 AM [facility] Name Value Range Interpretation Code Description Data Beryl rce(s) Supporting Document(s) Sodium 135 mmol/L 136-145 Below low normal [facility] Potassium 3.5-5.1 Normal (applies to non-numeric resul ts) [facility] Chloride 98 mmol/L 98-107 Normal (applies to non-numeric resul ts) [facility] Carbon Dioxide CO2 21-32 Above high normal [facility] Anion Gap 5.0-16.0 Below low normal [facility] spital BUN 18 mg/dL 7-18 Normal (applies to non-numeric results) [facility] Creatinine,Serum 0.7-1.2 Normal (applies to non-numeric results) [facility] GFR 45 mL/min >60 Below low normal [facility] spital Glucose Level 81 mg/dL 60-99 Normal (applies to non-numeric re sults) [facility] Reference range is only applicable when patient is fasting Note the following drug interference: Sulfasalazine Sulfapyridine Can see falsely depressed Can see falsely elevated result with up to 17% results with up to 11% decrease in measurement increase in measurement Recommend patients be collected for this test prior to administration of either drug. Calcium 8.5-10.1 Normal (applies to non-numeric resul ts) [facility] Bilirubin,Total 0.1-1.9 Above high normal [facility] Ruthann Garvey HAIDER read back critical inf ormation 12/03/19 0745 LAB.[facility] SGOT(AST) 34 U/L 15-37 Normal (applies to non-numeric resul ts) [facility] Note the following drug interference: Sulfasalazine Sulfapyridine Can see falsely depressed Can see falsely elevated result with up to 10% results with up to 10% decrease in measurement increase in measurement Recommend patients be collected for this test prior to administration of either drug. SGPT(ALT) 11 U/L 12-78 Below low normal [facility] Note the following drug interference: Sulfasalazine Sulfapyridine Can see falsely depressed Can see falsely elevated result with up to 29% results with up to 10% decrease in measurement increase in measurement Recommend patients be collected for this test prior to administration of either drug. Alkaline Phosphatase 470 U/L 38-126 Above high normal [facility] can increase Alkaline Phosp le vels up to 2 times the normal adult value. Normal values for children and adolescents are 2 to 3 times the normal adult value. Total Protein 6.0-8.2 Normal (applies to non-numeric re sults) [facility] Albumin Level 3.4-5.0 Below low normal [facility] ID Date Data Source [id number] 12/03/2019 07:47:00 AM EDT [facility] Name Value Range Interpretation Code Description Data Beryl rce(s) Supporting Document(s) Magnesium 1.8-2.4 Normal (applies to non-numeric resul ts) [facility] ID Date Data Source [id number] 12/03/2019 07:10:00 AM EDT [facility] Name Value Range Interpretation Code Description Data Beryl rce(s) Supporting Document(s) White Blood Count 3.5-10.5 Normal (applies to non-numeri c results) [facility] Red Blood Count 3.90-5.00 Below low normal [facility] Hemoglobin 12.0-15.5 Below low normal [facility]ital Hematocrit 34.9-44.5 Below low normal [facility] Mean Corpuscular Volume 81.2-95.1 Normal (applies to non- numeric results) [facility] Mean Corpuscular Hgb 25.6-32.2 Normal (applies to non-num omer results) [facility] Mean Corpuscular Hgb Conc 32.0-36.0 Below low normal [facility] Red Cell Distribution Width 11.9-15.5 Above high normal [facility] Platelet Count 205 x10 3/uL 150-450 Normal (applies to non-numeric results) [facility] Mean Platelet Volume 9.4-12.4 Normal (applies to non-num omer results) [facility] Neutrophils% (Auto) 31.0-71.0 Normal (applies to non-nume ronaldo results) [facility] Lymphocytes% (Auto) 20.0-55.0 Below low normal [facility] Monocytes% (Auto) 4.0-12.0 Above high normal [facility] Eosinophils% (Auto) 1.0-8.0 Normal (applies to non-nume ronaldo results) [facility] Basophils% (Auto) 0.0-2.0 Normal (applies to non-numeri c results) [facility] Immature Granulocytes% (Auto) 0.0-2.0 Normal (juan lies to non-numeric results) [facility] Neutrophils# (Auto) 1.50-6.20 Normal (applies to non-nume ronaldo results) [facility] Lymphocytes# (Auto) 1.20-4.00 Below low normal [facility] Monocytes# (Auto) 0.00-0.90 Normal (applies to non-numeri c results) [facility] Eosinophils# (Auto) 0.00-0.50 Normal (applies to non-nume ronaldo results) [facility] Basophils# (Auto) 0.00-0.20 Normal (applies to non-numeri c results) [facility] Immature Granulocytes# (Auto) 0.00-7.00 No rmal (applies to non-numeric results) [facility] Slide Reviewed By Normal (applies to non-numeri c results) [facility] Slide has been reviewed and findings con firmed by a technologist/nurse technician. ID Date Data Source [id number] 12/03/2019 07:06:00 AM [facility] Name Value Range Interpretation Code Description Data Beryl rce(s) Supporting Document(s) Ammonia 39 umol/L 11-32 Above high normal [facility] ospital Note the following drug interference: Sulfasalazine Sulfapyridine Can see falsely elevated Can see falsely depressed result with up to 10% results with up to 19% increase in measurement decrease in measurement Recommend patients be collected for this test prior to administration of either drug. ID Date Data Source [id number] 12/02/2019 09:42:00 PM [facility] Glufin Result: 347 Name Value Range Interpretation Code Description Data Beryl rce(s) Supporting Document(s) LAB Glucose,Fingerstick 347 mg/dL 61-115 Above high normal [facility] ID Date Data Source [id number] 12/02/2019 05:25:00 PM [facility] Name Value Range Interpretation Code Description Data Beryl rce(s) Supporting Document(s) Glucose Level 380 mg/dL 60-99 Above high normal [facility] Reference range is only applicable when patient is fasting Note the following drug interference: Sulfasalazine Sulfapyridine Can see falsely depressed Can see falsely elevated result with up to 17% results with up to 11% decrease in measurement increase in measurement Recommend patients be collected for this test prior to administration of either drug. ID Date Data Source [id number] 12/02/2019 04:54:00 PM [facility] Time Collected: 1646 Glufin Result: >4 00 Name Value Range Interpretation Code Description Data Beryl rce(s) Supporting Document(s) LAB Glucose,Fingerstick 61-115 PH [facility] Fingerstick Glucose exceeds Point of Car e testing limit. Specimen sent to Lab for confirmation. ID Date Data Source [id number] 12/02/2019 11:59:00 AM [facility] Time Collected: 1130 Glufin Result: 30 0 Name Value Range Interpretation Code Description Data Beryl rce(s) Supporting Document(s) LAB Glucose,Fingerstick 300 mg/dL 61-[address] [facility] ID Date Data Source [id number] 12/02/2019 08:42:00 AM [facility] Time Collected: 719 Glufin Result: 19 9 Name Value Range Interpretation Code Description Data Beryl rce(s) Supporting Document(s) LAB Glucose,Fingerstick 199 mg/dL 61-[address] [facility] ID Date Data Source [id number] 12/01/2019 08:40:00 PM [facility] Time Collected: 1999 Glufin Result: 27 2 Name Value Range Interpretation Code Description Data Beryl rce(s) Supporting Document(s) LAB Glucose,Fingerstick 272 mg/dL 61-[address] [facility] ID Date Data Source [id number] 12/01/2019 04:57:00 PM [facility] Glufin Result: 367 Name Value Range Interpretation Code Description Data Beryl rce(s) Supporting Document(s) LAB Glucose,Fingerstick 367 mg/dL 61-[address] [facility] ID Date Data Source [id number] 12/01/2019 11:47:00 AM [facility] Glufin Result: 308 Name Value Range Interpretation Code Description Data Beryl rce(s) Supporting Document(s) LAB Glucose,Fingerstick 308 mg/dL 61-[address] [facility] ID Date Data Source [id number] 12/01/2019 07:53:00 AM [facility] Glufin Result: 190 Name Value Range Interpretation Code Description Data Beryl rce(s) Supporting Document(s) LAB Glucose,Fingerstick 190 mg/dL 61-[address] [facility] ID Date Data Source [id number] 11/30/2019 08:14:00 PM [facility] Time Collected: 1999 Glufin Result: 34 8 Name Value Range Interpretation Code Description Data Beryl rce(s) Supporting Document(s) LAB Glucose,Fingerstick 348 mg/dL 61-[address] [facility] ID Date Data Source [id number] 11/30/2019 06:46:00 PM [facility] Glufin Result: 279 Name Value Range Interpretation Code Description Data Beryl rce(s) Supporting Document(s) LAB Glucose,Fingerstick 279 mg/dL 61-[address] [facility] ID Date Data Source [id number] 11/30/2019 12:05:00 PM [facility] Glufin Result: 303 Name Value Range Interpretation Code Description Data Beryl rce(s) Supporting Document(s) LAB Glucose,Fingerstick 303 mg/dL 61-[address] [facility] ID Date Data Source [id number] 11/30/2019 12:06:00 PM [facility] [place] Result: 168 Name Value Range Interpretation Code Description Data Beryl rce(s) Supporting Document(s) LAB Glucose,Fingerstick 168 mg/dL 61-[address] [facility] ID Date Data Source [id number] 11/30/2019 01:37:00 AM [facility] [place] Result: 226 Name Value Range Interpretation Code Description Data Beryl rce(s) Supporting Document(s) LAB Glucose,Fingerstick 226 mg/dL 61-[address] [facility] ID Date Data Source [id number] 11/29/2019 10:49:00 PM [facility] Time Collected: 2099 [place] Result: 22 6 Name Value Range Interpretation Code Description Data Beryl rce(s) Supporting Document(s) LAB Glucose,Fingerstick 226 mg/dL 61-[address] [facility] ID Date Data Source [id number] 11/29/2019 04:29:00 PM [facility] Time Collected: 1625 [place] Result: 23 0 Name Value Range Interpretation Code Description Data Beryl rce(s) Supporting Document(s) LAB Glucose,Fingerstick 230 mg/dL 61-[address] [facility] ID Date Data Source [id number] 11/29/2019 11:36:00 AM [facility] Time Collected: 0125 [place] Result: 19 1 Name Value Range Interpretation Code Description Data Beryl rce(s) Supporting Document(s) LAB Glucose,Fingerstick 191 mg/dL 61-[address] [facility] ID Date Data Source [id number] 11/29/2019 09:48:00 AM [facility] Time Collected: 0735 [place] Result: 17 8 Name Value Range Interpretation Code Description Data Beryl rce(s) Supporting Document(s) LAB Glucose,Fingerstick 178 mg/dL 61-[address] [facility] ID Date Data Source [id number] 11/28/2019 04:49:00 PM [facility] Time Collected: 1630 [place] Result: 36 5 Name Value Range Interpretation Code Description Data Beryl rce(s) Supporting Document(s) LAB Glucose,Fingerstick 365 mg/dL 61-[address] [facility] ID Date Data Source [id number] 11/28/2019 11:53:00 AM [facility] Time Collected: 1130 [place] Result: 33 8 Name Value Range Interpretation Code Description Data Beryl rce(s) Supporting Document(s) LAB Glucose,Fingerstick 338 mg/dL 61-[address] [facility] ID Date Data Source [id number] 11/28/2019 07:44:00 AM [facility] Time Collected: 0730 [place] Result: 16 2 Name Value Range Interpretation Code Description Data Beryl rce(s) Supporting Document(s) LAB Glucose,Fingerstick 162 mg/dL 61-[address] [facility] ID Date Data Source [id number] 11/28/2019 07:26:00 AM [facility] Time Collected: 042 [place] Result: 18 8 Name Value Range Interpretation Code Description Data Beryl rce(s) Supporting Document(s) LAB Glucose,Fingerstick 188 mg/dL 61-[address] [facility] ID Date Data Source [id number] 11/28/2019 07:26:00 AM [facility] Time Collected: 0201 [place] Result: 29 6 Name Value Range Interpretation Code Description Data Beryl rce(s) Supporting Document(s) LAB Glucose,Fingerstick 296 mg/dL 61-[address] [facility] ID Date Data Source [id number] 11/28/2019 01:13:00 AM [facility] Time Collected: 0042 [place] Result: 35 7 Name Value Range Interpretation Code Description Data Beryl rce(s) Supporting Document(s) LAB Glucose,Fingerstick 357 mg/dL 61-[address] [facility] ID Date Data Source [id number] 11/27/2019 10:57:00 PM [facility] Name Value Range Interpretation Code Description Data Beryl rce(s) Supporting Document(s) Glucose Level 363 mg/dL 60-99 Above [facility] Reference range is only applicable when patient is fasting Note the following drug interference: Sulfasalazine Sulfapyridine Can see falsely depressed Can see falsely elevated result with up to 17% results with up to 11% decrease in measurement increase in measurement Recommend patients be collected for this test prior to administration of either drug. ID Date Data Source [id number] 11/27/2019 10:25:00 PM [facility] Time Collected: 2214 [place] Result: hi gh Name Value Range Interpretation Code Description Data Beryl rce(s) Supporting Document(s) LAB Glucose,Fingerstick 61-115 [facility] Fingerstick Glucose exceeds Point of Car e testing limit. Specimen sent to Lab for confirmation. ID Date Data Source [id number] 11/27/2019 06:51:00 PM [facility] [place] Result: 305 Name Value Range Interpretation Code Description Data Beryl rce(s) Supporting Document(s) LAB Glucose,Fingerstick 305 mg/dL 61-115 Above high normal [facility] ID Date Data Source [id number] 11/27/2019 12:08:00 PM [facility] [place] Result: 315 Name Value Range Interpretation Code Description Data Beryl rce(s) Supporting Document(s) LAB Glucose,Fingerstick 315 mg/dL 61-115 Above high normal [facility] ID Date Data Source [id number] 11/27/2019 06:39:00 AM [facility] Time Collected: 637 [place] Result: 17 8 Name Value Range Interpretation Code Description Data Beryl rce(s) Supporting Document(s) LAB Glucose,Fingerstick 178 mg/dL 61-115 Above high normal [facility] ID Date Data Source [id number] 11/27/2019 01:46:00 PM [facility] Name Value Range Interpretation Code Description Data Beryl rce(s) Supporting Document(s) FESAT Iron result 43 ug/dL 37-170 Normal (applies to non-numeri c results) [facility] Test Performed By: [facility] [address] [place] [address] Director: Johan Arriaga MD FESAT TIBC result 301 ug/dL 265-497 Normal (applies to non-numeri c results) [facility] Test Performed By: [facility] [address] [place] [address] Director: Johan Arriaga MD FESAT %Iron Saturation result 12.0-55.0 No rmal (applies to non-numeric results) [facility] Test Performed By: [facility] [address] [place] [address] Director: Johan Arriaga MD ID Date Data Source [id number] 11/27/2019 01:46:00 PM [facility] Name Value Range Interpretation Code Description Data Beryl rce(s) Supporting Document(s) Ferritin result 89 ng/mL 11.1-264.0 Normal (applies to non-numeric results) [facility] Test Performed By: [facility] [address] [place] [address] Director: Johan Arriaga MD ID Date Data Source [id number] 11/27/2019 12:44:00 PM EDT [facility] Name Value Range Interpretation Code Description Data Beryl rce(s) Supporting Document(s) Iron FE Level 43 ug/dL 37-170 Normal (applies to non-numeric re sults) [facility] Test Performed By: [facility] [address] [place] [address] Director: Johan Arriaga MD Total Iron Binding Capacity 301 ug/dL 265-497 Norm al (applies to non-numeric results) [facility] Test Performed By: [facility] [address] [place] [address] Director: Johan Arriaga MD %Iron Saturation 12.0-55.0 Normal (applies to non-numeric results) [facility] Test Performed By: [facility] [address] [place] [address] Director: Johan Arriaga MD ID Date Data Source [id number] 11/27/2019 12:44:00 PM EDT [facility] Name Value Range Interpretation Code Description Data Beryl rce(s) Supporting Document(s) Ferritin 89 ng/mL 11.1-264.0 Normal (applies to non-numeric resul ts) [facility] Test Performed By: [facility] [address] [place] [address] Director: Johan Arriaga MD ID Date Data Source [id number] 11/27/2019 08:30:00 AM EDT [facility] Name Value Range Interpretation Code Description Data Beryl rce(s) Supporting Document(s) Sodium 133 mmol/L 136-145 Below low normal [facility] Potassium 3.5-5.1 Normal (applies to non-numeric resul ts) [facility] Chloride 97 mmol/L 98-107 Below low normal [facility] Carbon Dioxide CO2 21-32 Normal (applies to non-numer ic results) [facility] Anion Gap 5.0-16.0 Below low normal [facility] BUN 19 mg/dL 7-18 Above high normal [facility] Creatinine,Serum 0.7-1.2 Normal (applies to non-numeric results) [facility] GFR 45 mL/min >60 Below low normal [facility] spital Glucose Level 172 mg/dL 60-99 Above high normal [facility] Reference range is only applicable when patient is fasting Note the following drug interference: Sulfasalazine Sulfapyridine Can see falsely depressed Can see falsely elevated result with up to 17% results with up to 11% decrease in measurement increase in measurement Recommend patients be collected for this test prior to administration of either drug. Calcium 8.5-10.1 Normal (applies to non-numeric resul ts) [facility] Bilirubin,Total 0.1-1.9 Normal (applies to non-numeric results) [facility] SGOT(AST) 32 U/L 15-37 Normal (applies to non-numeric resul ts) [facility] Note the following drug interference: Sulfasalazine Sulfapyridine Can see falsely depressed Can see falsely elevated result with up to 10% results with up to 10% decrease in measurement increase in measurement Recommend patients be collected for this test prior to administration of either drug. SGPT(ALT) 13 U/L 12-78 Normal (applies to non-numeric resul ts) [facility] Note the following drug interference: Sulfasalazine Sulfapyridine Can see falsely depressed Can see falsely elevated result with up to 29% results with up to 10% decrease in measurement increase in measurement Recommend patients be collected for this test prior to administration of either drug. Alkaline Phosphatase 381 U/L 38-126 Above high normal [facility] can increase Alkaline Phosp le vels up to 2 times the normal adult value. Normal values for children and adolescents are 2 to 3 times the normal adult value. Total Protein 6.0-8.2 Normal (applies to non-numeric re sults) [facility] Albumin Level 3.4-5.0 Below low normal [facility] ID Date Data Source [id number] 11/27/2019 08:30:00 AM EDT [facility] Name Value Range Interpretation Code Description Data Beryl rce(s) Supporting Document(s) Phosphorus 2.5-4.9 Normal (applies to non-numeric resul ts) [facility] ID Date Data Source [id number] 11/27/2019 08:30:00 AM EDT [facility] Name Value Range Interpretation Code Description Data Beryl rce(s) Supporting Document(s) Magnesium 1.8-2.4 Normal (applies to non-numeric resul ts) [facility] ID Date Data Source [id number] 11/27/2019 08:30:00 AM [facility] Name Value Range Interpretation Code Description Data Beryl rce(s) Supporting Document(s) Triglycerides 22 mg/dL <150 Normal (applies to non-numeric re sults) [facility] Cholesterol 84 mg/dL 100-200 Below low normal [facility] LDL Cholesterol Calculated 27 0-130 Normal (applies to n on-numeric results) [facility] HDL Cholesterol 53 mg/dL 40-60 Normal (applies to non-numeric results) [facility] Cholesterol/HDL Ratio 3.6-6.7 Below low normal [facility] ID Date Data Source [id number] 11/27/2019 07:45:00 AM EDT [facility] Name Value Range Interpretation Code Description Data Beryl rce(s) Supporting Document(s) Hemoglobin A1c 4.4-6.2 Above high normal [facility] Estimated Avg Glucose 146 mg/dL 126-240 Normal (applies to non-numeric results) [facility] ID Date Data Source [id number] 11/27/2019 07:21:00 AM EDT [facility] Name Value Range Interpretation Code Description Data Beryl rce(s) Supporting Document(s) White Blood Count 3.5-10.5 Normal (applies to non-numeri c results) [facility] Red Blood Count 3.90-5.00 Below low normal [facility] Hemoglobin 12.0-15.5 Below low normal [facility] Hematocrit 34.9-44.5 Below low normal [facility] Mean Corpuscular Volume 81.2-95.1 Normal (applies to non- numeric results) [facility] Mean Corpuscular Hgb 25.6-32.2 Normal (applies to non-num omer results) [facility] Mean Corpuscular Hgb Conc 32.0-36.0 Below low normal [facility] Red Cell Distribution Width 11.9-15.5 Above high normal [facility] Platelet Count 204 x10 3/uL 150-450 Normal (applies to non-numeric results) [facility] Mean Platelet Volume 9.4-12.4 Normal (applies to non-num omer results) [facility] Neutrophils% (Auto) 31.0-71.0 Above high normal [facility] Lymphocytes% (Auto) 20.0-55.0 Below low normal [facility] Monocytes% (Auto) 4.0-12.0 Normal (applies to non-numeri c results) [facility] Eosinophils% (Auto) 1.0-8.0 Normal (applies to non-nume ronaldo results) [facility] Basophils% (Auto) 0.0-2.0 Normal (applies to non-numeri c results) [facility] Immature Granulocytes% (Auto) 0.0-2.0 Normal (juan lies to non-numeric results) [facility] Neutrophils# (Auto) 1.50-6.20 Above high normal [facility] Lymphocytes# (Auto) 1.20-4.00 Below low normal [facility] Monocytes# (Auto) 0.00-0.90 Normal (applies to non-numeri c results) [facility] Eosinophils# (Auto) 0.00-0.50 Normal (applies to non-nume ronaldo results) [facility] Basophils# (Auto) 0.00-0.20 Normal (applies to non-numeri c results) [facility] Immature Granulocytes# (Auto) 0.00-7.00 No rmal (applies to non-numeric results) [facility] Slide Reviewed By Normal (applies to non-numeri c results) [facility] Slide has been reviewed and findings con firmed by a technologist/nurse technician. ID Date Data Source [id number] 11/27/2019 07:21:00 AM [facility] Name Value Range Interpretation Code Description Data Beryl rce(s) Supporting Document(s) Reticulocyte Count 0.50-1.81 Above high normal [facility] ID Date Data Source [id number] 11/27/2019 06:12:00 AM [facility] Time Collected: 0515 [place] Result: 21 1 Name Value Range Interpretation Code Description Data Beryl rce(s) Supporting Document(s) LAB Glucose,Fingerstick 211 mg/dL 61-115 Above high normal [facility] ID Date Data Source [id number] 11/27/2019 03:34:00 AM [facility] Time Collected: 0324 [place] Result: 14 7 Name Value Range Interpretation Code Description Data Beryl rce(s) Supporting Document(s) LAB Glucose,Fingerstick 147 mg/dL 61-115 Above high normal [facility] ID Date Data Source [id number] 11/27/2019 02:15:00 AM [facility] Time Collected: 0207 [place] Result: 97 Name Value Range Interpretation Code Description Data Beryl rce(s) Supporting Document(s) LAB Glucose,Fingerstick 97 mg/dL 61-115 Normal (applies t o non-numeric results) [facility] ID Date Data Source [id number] 11/27/2019 01:39:00 AM [facility] Time Collected: 0115 [place] Result: 53 Name Value Range Interpretation Code Description Data Beryl rce(s) Supporting Document(s) LAB Glucose,Fingerstick 53 mg/dL 61-115 Below low normal [facility] ID Date Data Source [id number] 11/27/2019 12:26:00 AM [facility] Time Collected: 0010 [place] Result: 80 Name Value Range Interpretation Code Description Data Beryl rce(s) Supporting Document(s) LAB Glucose,Fingerstick 80 mg/dL 61-115 Normal (applies t o non-numeric results) [facility] ID Date Data Source [id number] 11/26/2019 10:34:00 PM [facility] Time Collected: 2226 [place] Result: 36 3 Name Value Range Interpretation Code Description Data Beryl rce(s) Supporting Document(s) LAB Glucose,Fingerstick 363 mg/dL 61-115 Above high normal [facility] ID Date Data Source [id number] 11/26/2019 05:02:00 PM [facility] Name Value Range Interpretation Code Description Data Beryl rce(s) Supporting Document(s) Glucose Level 428 mg/dL 60-99 [facility] (RN) read back critical inform ation 11/26/19 1654 LAB.[facility] Reference range is only applicable when patient is fasting Note the following drug interference: Sulfasalazine Sulfapyridine Can see falsely depressed Can see falsely elevated result with up to 17% results with up to 11% decrease in measurement increase in measurement Recommend patients be collected for this test prior to administration of either drug. ID Date Data Source [id number] 11/26/2019 04:29:00 PM [facility] [place] Result: too high to read Name Value Range Interpretation Code Description Data Beryl rce(s) Supporting Document(s) LAB Glucose,Fingerstick 61-115 PH [facility] Fingerstick Glucose exceeds Point of Car e testing limit. Specimen sent to Lab for confirmation. ID Date Data Source [id number] 11/26/2019 12:41:00 PM [facility] [place] Result: 344 Name Value Range Interpretation Code Description Data Beryl rce(s) Supporting Document(s) LAB Glucose,Fingerstick 344 mg/dL 61-115 Above high normal [facility] ID Date Data Source [id number] 11/26/2019 08:05:00 AM [facility] [place] Result: 218 Name Value Range Interpretation Code Description Data Beryl rce(s) Supporting Document(s) LAB Glucose,Fingerstick 218 mg/dL 61-[address] [facility] ID Date Data Source [id number] 11/25/2019 09:57:00 PM [facility] Time Collected: 1999 [place] Result: 39 9 Name Value Range Interpretation Code Description Data Beryl rce(s) Supporting Document(s) LAB Glucose,Fingerstick 399 mg/dL 61-[address] [facility] ID Date Data Source [id number] 11/25/2019 05:38:00 PM [facility] [place] Result: 281 Name Value Range Interpretation Code Description Data Beryl rce(s) Supporting Document(s) LAB Glucose,Fingerstick 281 mg/dL 61-[address] [facility] ID Date Data Source [id number] 11/25/2019 12:17:00 PM [facility] Time Collected: 1130 [place] Result: 28 3 Name Value Range Interpretation Code Description Data Beryl rce(s) Supporting Document(s) LAB Glucose,Fingerstick 283 mg/dL 61-[address] [facility] ID Date Data Source [id number] 11/25/2019 08:10:00 AM [facility] Time Collected: 07 [place] Result: 12 5 Name Value Range Interpretation Code Description Data Beryl rce(s) Supporting Document(s) LAB Glucose,Fingerstick 125 mg/dL 61-[address] [facility] ID Date Data Source [id number] 11/24/2019 08:21:00 PM [facility] Time Collected: 1852 [place] Result: 40 0 Name Value Range Interpretation Code Description Data Beryl rce(s) Supporting Document(s) LAB Glucose,Fingerstick 400 mg/dL 61-[address] [facility] Fingerstick Glucose exceeds Point of Car e testing limit. Specimen sent to Lab for confirmation. ID Date Data Source [id number] 11/24/2019 04:42:00 PM [facility] Name Value Range Interpretation Code Description Data Beryl rce(s) Supporting Document(s) Glucose Level 446 mg/dL 60-99 [facility] Hu read back critical information 11/24/19 1642 LAB.[facility] Reference range is only applicable when patient is fasting Note the following drug interference: Sulfasalazine Sulfapyridine Can see falsely depressed Can see falsely elevated result with up to 17% results with up to 11% decrease in measurement increase in measurement Recommend patients be collected for this test prior to administration of either drug. ID Date Data Source [id number] 11/24/2019 04:12:00 PM [facility] Time Collected: 1608 [place] Result: HI Name Value Range Interpretation Code Description Data Beryl rce(s) Supporting Document(s) LAB Glucose,Fingerstick 61-115 [facility] Fingerstick Glucose exceeds Point of Car e testing limit. Specimen sent to Lab for confirmation. ID Date Data Source [id number] 11/24/2019 12:49:00 PM [facility] Time Collected: 1130 [place] Result: 36 2 Name Value Range Interpretation Code Description Data Beryl rce(s) Supporting Document(s) LAB Glucose,Fingerstick 362 mg/dL 61-[address] [facility] ID Date Data Source [id number] 11/24/2019 10:09:00 AM [facility] Time Collected: 0900 [place] Result: 31 4 Name Value Range Interpretation Code Description Data Beryl rce(s) Supporting Document(s) LAB Glucose,Fingerstick 314 mg/dL 61-[address] [facility] ID Date Data Source [id number] 11/23/2019 10:23:00 PM [facility] [place] Result: 327 Name Value Range Interpretation Code Description Data Beryl rce(s) Supporting Document(s) LAB Glucose,Fingerstick 327 mg/dL 61-[address] [facility] ID Date Data Source [id number] 11/23/2019 05:33:00 PM [facility] Time Collected: 1630 [place] Result: 30 5 Name Value Range Interpretation Code Description Data Beryl rce(s) Supporting Document(s) LAB Glucose,Fingerstick 305 mg/dL 61-[address] [facility] ID Date Data Source [id number] 11/23/2019 11:56:00 AM [facility] Time Collected: 1130 [place] Result: 29 2 Name Value Range Interpretation Code Description Data Beryl rce(s) Supporting Document(s) LAB Glucose,Fingerstick 292 mg/dL 61-[address] [facility] ID Date Data Source [id number] 11/23/2019 09:32:00 AM [facility] Time Collected: 07 [place] Result: 15 4 Name Value Range Interpretation Code Description Data Beryl rce(s) Supporting Document(s) LAB Glucose,Fingerstick 154 mg/dL 61-[address] [facility] ID Date Data Source [id number] 11/22/2019 07:01:00 PM [facility] Time Collected: 1630 [place] Result: 32 5 Name Value Range Interpretation Code Description Data Beryl rce(s) Supporting Document(s) LAB Glucose,Fingerstick 325 mg/dL 61-[address] [facility] ID Date Data Source [id number] 11/22/2019 12:49:00 PM [facility] Time Collected: 1141 Glufin Result: 27 3 Name Value Range Interpretation Code Description Data Beryl rce(s) Supporting Document(s) LAB Glucose,Fingerstick 273 mg/dL 61-[address] [facility] ID Date Data Source [id number] 11/22/2019 12:48:00 PM [facility] Time Collected: 1130 Glufin Result: 27 3 Name Value Range Interpretation Code Description Data Beryl rce(s) Supporting Document(s) LAB Glucose,Fingerstick 273 mg/dL 61-[address] [facility] ID Date Data Source [id number] 11/22/2019 08:00:00 AM [facility] Time Collected: 0716 Glufin Result: 19 0 Name Value Range Interpretation Code Description Data Beryl rce(s) Supporting Document(s) LAB Glucose,Fingerstick 190 mg/dL 61-115 Above high normal [facility] ID Date Data Source [id number] 11/21/2019 09:23:00 PM [facility] Time Collected: 2100 Glufin Result: 28 4 Name Value Range Interpretation Code Description Data Beryl rce(s) Supporting Document(s) LAB Glucose,Fingerstick 284 mg/dL 61-115 Above high normal [facility] ID Date Data Source [id number] 11/21/2019 04:59:00 PM [facility] Time Collected: 1630 Glufin Result: 32 6 Name Value Range Interpretation Code Description Data Beryl rce(s) Supporting Document(s) LAB Glucose,Fingerstick 326 mg/dL 61-115 Above high [facility] ID Date Data Source [id number] 11/21/2019 12:22:00 PM [facility] Time Collected: 1130 Glufin Result: 32 6 Name Value Range Interpretation Code Description Data Beryl rce(s) Supporting Document(s) LAB Glucose,Fingerstick 326 mg/dL 61-[address] [facility] ID Date Data Source [id number] 11/21/2019 07:32:00 AM [facility] Name Value Range Interpretation Code Description Data Beryl rce(s) Supporting Document(s) White Blood Count 3.5-10.5 Normal (applies to non-numeri c results) [facility] Red Blood Count 3.90-5.00 Below low normal [facility] Hemoglobin 12.0-15.5 Below low normal [facility] Hematocrit 34.9-44.5 Below low normal [facility] Mean Corpuscular Volume 81.2-95.1 Normal (applies to non- numeric results) [facility] Mean Corpuscular Hgb 25.6-32.2 Normal (applies to non-num omer results) [facility] Mean Corpuscular Hgb Conc 32.0-36.0 Below low normal [facility] Red Cell Distribution Width 11.9-15.5 Above high normal [facility] Platelet Count 219 x10 3/uL 150-450 Normal (applies to non-numeric results) [facility] Mean Platelet Volume 9.4-12.4 Normal (applies to non-num omer results) [facility] Neutrophils% (Auto) 31.0-71.0 Normal (applies to non-nume ronaldo results) [facility] Lymphocytes% (Auto) 20.0-55.0 Below low normal [facility] Monocytes% (Auto) 4.0-12.0 Above high normal [facility] Eosinophils% (Auto) 1.0-8.0 Normal (applies to non-nume ronaldo results) [facility] Basophils% (Auto) 0.0-2.0 Normal (applies to non-numeri c results) [facility] Immature Granulocytes% (Auto) 0.0-2.0 Normal (juan lies to non-numeric results) [facility] Neutrophils# (Auto) 1.50-6.20 Normal (applies to non-nume ronaldo results) [facility] Lymphocytes# (Auto) 1.20-4.00 Below low normal [facility] Monocytes# (Auto) 0.00-0.90 Normal (applies to non-numeri c results) [facility] Eosinophils# (Auto) 0.00-0.50 Normal (applies to non-nume ronaldo results) [facility] Basophils# (Auto) 0.00-0.20 Normal (applies to non-numeri c results) [facility] Immature Granulocytes# (Auto) 0.00-7.00 No rmal (applies to non-numeric results) [facility] Slide has been reviewed and findings con firmed by a technologist/nurse technician. ID Date Data Source [id number] 11/21/2019 07:26:00 AM EDT [facility] Name Value Range Interpretation Code Description Data Beryl rce(s) Supporting Document(s) PT 9.2-11.7 Above high normal [facility] INR Normal (applies to non-numeric results) [facility] The use of INR is restricted to patients on stable oral anticoagulant. Therapeutic Range: 2.0 - 3.0 High Risk Range: 2.5 - 3.5 ID Date Data Source [id number] 11/21/2019 07:53:00 AM EDT [facility] Name Value Range Interpretation Code Description Data Beryl rce(s) Supporting Document(s) Sodium 136 mmol/L 136-145 Normal (applies to non-numeric resul ts) [facility] Potassium 3.5-5.1 Below low normal [facility] spital Chloride 99 mmol/L 98-107 Normal (applies to non-numeric resul ts) [facility] Carbon Dioxide CO2 21-32 Normal (applies to non-numer ic results) [facility] Anion Gap 5.0-16.0 Normal (applies to non-numeric resul ts) [facility] BUN 23 mg/dL 7-18 Above high normal [facility] Creatinine,Serum 0.7-1.2 Above high normal [facility] GFR 41 mL/min >60 Below low normal [facility] spital Glucose Level 153 mg/dL 60-99 Above high normal [facility] Reference range is only applicable when patient is fasting Note the following drug interference: Sulfasalazine Sulfapyridine Can see falsely depressed Can see falsely elevated result with up to 17% results with up to 11% decrease in measurement increase in measurement Recommend patients be collected for this test prior to administration of either drug. Calcium 8.5-10.1 Normal (applies to non-numeric resul ts) [facility] Bilirubin,Total 0.1-1.9 Normal (applies to non-numeric results) [facility] SGOT(AST) 28 U/L 15-37 Normal (applies to non-numeric resul ts) [facility] Note the following drug interference: Sulfasalazine Sulfapyridine Can see falsely depressed Can see falsely elevated result with up to 10% results with up to 10% decrease in measurement increase in measurement Recommend patients be collected for this test prior to administration of either drug. SGPT(ALT) 14 U/L 12-78 Normal (applies to non-numeric resul ts) [facility] Note the following drug interference: Sulfasalazine Sulfapyridine Can see falsely depressed Can see falsely elevated result with up to 29% results with up to 10% decrease in measurement increase in measurement Recommend patients be collected for this test prior to administration of either drug. Alkaline Phosphatase 172 U/L 38-126 Above high normal [facility] can increase Alkaline Phosp le vels up to 2 times the normal adult value. Normal values for children and adolescents are 2 to 3 times the normal adult value. Total Protein 6.0-8.2 Normal (applies to non-numeric re sults) [facility] Albumin Level 3.4-5.0 Below low normal [facility] ID Date Data Source [id number] 11/21/2019 07:53:00 AM [facility] Name Value Range Interpretation Code Description Data Beryl rce(s) Supporting Document(s) Magnesium 1.8-2.4 Below low normal [facility] spital ID Date Data Source [id number] 11/20/2019 10:08:00 PM [facility] Name Value Range Interpretation Code Description Data Beryl rce(s) Supporting Document(s) Glucose Level 60-99 Normal (applies to non-numeric re sults) [facility] BASMET drawn 5hrs ID Date Data Source [id number] 11/20/2019 10:00:00 PM [facility] Glufin Result: To high to read Name Value Range Interpretation Code Description Data Beryl rce(s) Supporting Document(s) LAB Glucose,Fingerstick 61-115 PH [facility] Fingerstick Glucose exceeds Point of Car e testing limit. Specimen sent to Lab for confirmation. ID Date Data Source [id number] 11/20/2019 10:20:00 PM [facility] Name Value Range Interpretation Code Description Data Beryl rce(s) Supporting Document(s) Magnesium 1.8-2.4 Below low normal [facility] spital ID Date Data Source [id number] 11/20/2019 09:14:00 PM [facility] Name Value Range Interpretation Code Description Data Beryl rce(s) Supporting Document(s) Sodium 134 mmol/L 136-145 Below low normal [facility] Potassium 3.5-5.1 Below low normal [facility] spital Ade Clark RN read back critical inf ormation 11/20/192110 LAB.[facility]NRO Chloride 97 mmol/L 98-107 Below low normal [facility] sp[facility] Carbon Dioxide CO2 21-32 Normal (applies to non-numer ic results) [facility] Anion Gap 5.0-16.0 Normal (applies to non-numeric resul ts) [facility] BUN 25 mg/dL 7-18 Above high normal [facility] Creatinine,Serum 0.7-1.2 Above high normal [facility] GFR 38 mL/min >60 Below low normal [facility] Glucose Level 336 mg/dL 60-99 Above high normal [facility] Reference range is only applicable when patient is fasting Note the following drug interference: Sulfasalazine Sulfapyridine Can see falsely depressed Can see falsely elevated result with up to 17% results with up to 11% decrease in measurement increase in measurement Recommend patients be collected for this test prior to administration of either drug. Calcium 8.5-10.1 Normal (applies to non-numeric resul ts) [facility] ID Date Data Source [id number] 11/20/2019 06:04:00 PM [facility] Collected By: Nurse Initials: mw Time Collected: 1745 Name Value Range Interpretation Code Description Data [facility] rce(s) Supporting Document(s) Color,Urine Colorl-Dk Y Normal (applies to non-numeric res ults) [facility] Clarity,Urine Clear Normal (applies to non-numeric re sults) [facility] Specific [place],Urine 1.005-1.030 Normal (applies to non- numeric results) [facility] pH,Urine 5.0-8.0 Normal (applies to non-numeric resul ts) [facility] Protein,Urine Negative Normal (applies to non-numeric re sults) [facility] Glucose,Urine Negative [facility] Ketones,Urine Negative Normal (applies to non-numeric re sults) [facility] Blood,Urine Negative Normal (applies to non-numeric resu lts) [facility] Bilirubin,Urine Negative Normal (applies to non-numeric results) [facility] Urobilinogen,Urine 0.2-1.0 Normal (applies to non-numer ic results) [facility] Leukocyte Esterase,Urine Negative Normal (applies to non -numeric results) [facility] Nitrite,Urine Negative Normal (applies to non-numeric re sults) [facility] ID Date Data Source [id number] 11/20/2019 11:17:48 AM EDT [facility]FORMATIONPatient [facility] Name Date of Age Gend*PT [id number] Lindsay Blair 1935 84 years F IPPT Location Admission Date/Time Visit ID Attending [id number] 11/14/192308 --- Dennis Leggett MD([id number]) EPI ID CSN Admitting Provider [id number] Silvestre Kenyon MD([id number]) [facility] DISCHARGE SUMMARYPatient Name: Lindsay Blair of : 1935 Age 84 yearsPrimary Physician: Selwyn Bell IV, NP PCP [id number] Date: 11/14/2019 Discharge Date:[facility] Diagnoses:Principal Problem: Infection of pacemaker pocketActive Problems: Aortic valve disease Cardiac pacemaker in situ Diabetes mellitus, type II Cirrhosis advanced Sinoatrial node dysfunction Encounter for pacemaker at end of battery life 10/24/2019 Elevated INR 1.4-1.7 Closed right tibial fracture Pacemaker RV lead malfunction reported Acute blood loss anemia Laceration of brow without complication, left - sutures 11/13/2019 Periorbital ecchymoses FallDischarge Medications:Current Discharge Medication ListSTART taking these medications Det ailsacetaminophen (TYLENOL) 325 MG tablet Take 2 tablets (650 mg total) by mouthevery 4 (four) hours as neededQty: 30 tablet, Refills: 0Multiple Vitamins- Iron (MULTIVITAMIN WITH IRON) TABS Take 1 tablet by mouthdailyRefills: 0nadolol (CORGARD) 20 MG tablet Take 0.5 tablets (10 mg total) by mouth dailyoxyCODONE- acetaminophen (PERCOCET) 5-325 MG per tablet Take 1 tablet by mouthevery 6 (six) hours as needed Max Daily Amount: 4 tabletsRefills: 0torsemide (DEMADEX) 20 MG tablet Take 1 tablet (20 mg total) by mouth dailyCONTINUE these medications which have CHANGED Detailsinsulin glargine (LANTUS) 100 UNIT/ML injection Inject 9 Units under the skinnightlyQty: 10 mL, Refills: 0CONTINUE these medications which have NOT CHANGED Detailsalbuterol (PROVENTIL HFA;VENTOLIN HFA) 108 (90 Base) MCG/ACT inhaler Inhale 2puffs every 4 (four) hours as needed for wheezingalbuterol (PROVENTIL) (2.5 MG/3ML) 0.083% nebulizer solution ALBUTEROL SULFATENEBUglipiZIDE (GLUCOTROL) 5 MG tablet GLIPIZIDE 5 MG TABSLactulose Ence phalopathy 10 GM/15ML SOLN Take by mouth 3 (three) times a daynitroglycerin (NITROSTAT) 0.4 MG SL tablet NITROSTAT 0.4 MG SUBLOmeprazole 20 MG TBEC OMEPRAZOLE 20 MG TBECspironolactone (ALDACTONE) 50 MG tablet SPIRONOLACTONE 50 MG TABSSTOP taking these medications furosemide (LASIX) 20 MG tabletFollow Up Instructions:The patient was given an after visit summary.Patient will follow up with Biochemistry Technician Dr. Chambers on 11/29/19, Orthopedic Surgeon12/05/19 and her PCP Selwyn Bell IV, STORY WRITER will call her with an appointment.Brief Hospital Course:84-year-old female with a past medical history of asthma, cirrhosis, diabetes,GERD, hypertension, chronic hydrothorax, pacemaker who recently had a newbattery placed for her pacemaker by Dr. Escobar. She was seen in the office byher Biochemistry Technician Dr. Chambers.There was concern for drainage in the pacemaker pocket.She was started on dicloxacillin. Several days later she had a fall injuring herleft eyebrow. She also injured her right ramirez. She was sent to [facility] and was found to have a right proximal tibial fracture. Sutures wereplaced in her left eyebrow. She was transferred to [facility] for evaluation of possible pacemaker infection. She was also noted tohave hypotension. She was started on IV Zosyn. She was transferred to [facility] evaluation. She was noted to have a fever. She had a negative screen forCOVID-19 infection. She was seen by the Cardiology service. Her pacemaker wasinterrogated. It was a normal device check. The pocket was examined and therewere no signs of infection. There was no tenderness or leukocytosis.Echocardiogram showed LVEF 60 to 65%. Left ventricle motion was normal. Leftventricle diastolic function was abnormal. Left atrial size was severelydilated. There was mild MR with mild mitral stenosis. Also seen was moderateaortic stenosis. Her furosemide was changed to torsemide. Nadolol was alsoadded. Her spironolactone and lactulose were continued. She was seen by theOrthopedic service. They recommended conservative treatment with kneeimmobilizer nonweightbearing of the right lower extremity. Recommendedfollow-up as an outpatient. Patient was also treated for UTI. Urine cultureshowed no growth. Patient was seen by physical therapy service who arerecommending short-term rehab. Repeat COVID-19 testing is negative.. Patientwill follow up with Biochemistry Technician Dr. Chambers on 11/29/19, Orthopedic Surgeon 01/13and her PCP Selwyn Bell IV STORY WRITER will call her with an appointment. Patient isstable for discharge.Discharge Exam:Blood Pressure: BP: 117/58 Pulse: Heart Rate: 69Temperature: Temp: 98.1 F Respirations: Resp: 16Admission Weight: Weight: 70.8 kg (156 lb) O2 Saturation: SpO2: 97 %Discharge Weight: Weight: 75.1 kg (165 lb 8 oz) BMI: Body mass index is 31.27kg/m .Constitutional: She is oriented to person, place, and time. She appearswell- developed.HENT:Left eyebrow LAC/bruisingEyes: EOM are normal.Neck: Normal range of motion.Cardiovascular: Normal rate and regular rhythm.Pulmonary/Chest: Effort normal. She has decreased breath sounds.Abdominal: Soft. Bowel sounds are normal. There is no tenderness.Musculoskeletal:R SUE immobilizer.Neurological: She is alert and oriented to person, place, and time.Skin: Skin is warm.Psychiatric: Her behavior is normal. Diagnostics:Imaging:Echo Transthoracic (tte)Result Date: . Left ventricular cavity size is normal with mild increase in wallthickness. 2. LV systolic function is normal with resting estimated ejectionfraction is 60-65 %. 3. The left ventricular wall motion is normal 4. LVdiastolic function is abnormal with elevated filling pressure 5. Left atrialsize is severely dilated 6. Mild myxomatous degeneration of the mitralleaflet, severe mitral annular calcification, mild mitral regurgitation. Mitralvalve V-max is 1.9 m/s, max/mean gradient 14/6 mmHg consistent with a mildmitral stenosis. 7. Aortic valve V max is 3.98 M/Sec, Max/ Mean Gradient 63/33mm hg, DI= 0.38 consistent with moderate aortic stenosis .X-ray Chest PortableResult Date: 11/15/2019[place]. [place] [address] Patient Name: LINDSAY STRONGAGNER : 1935 Sex: F Ordering Provider: SILVESTRE KENYON AuthorizingProv: SILVESTRE KENYON Referring Provider: Procedure Performed: XR CHESTPORTABLE Exam Date: 11/15/2019 00:34 Patient Class: Inpatient Reason for Exam:check pacer lead position Technique: AP portable view obtained. Comparison: NoneFindings: A single frontal view of the chest demonstrates an opacification ofthe lower right hemithorax likely secondary to a combination of effusion andconsolidation. Groundglass opacities throughout remainder of the right lung.Some density at the right lung apex may be secondary to pleural thickening orloculated effusion. Left lung is clear. Dual-chamber left-sided pacemaker isnoted with leads overlying the region of the right ventricle. Mediastinumappears slightly shifted to the right.IMPRESSION: 1. Opacification lower right hemithorax likely secondary to effusionand consolidation with perhaps some loculated effusion at the right apex andgroundglass opacities throughout the remainder of the right lung. 2. Someshifting of the mediastinum to the right some of which may be technical. Reportelectronically signed by: JAY GONZÁLES On 11/15/2019 6:09 AM Workstation ID:[id number] Lower Extremity Without Iv Contrast RightResult Date: 11/15/2019. [place] [address] Patient Name: LINDSAY FWAGNER : 1935 Sex: F Ordering Provider: ALFIE MACARIO AuthorizingProv: ALFIE MACARIO Referring Provider: Procedure Performed: CT LOWEREXTREMITY WO CONTRAST RIGHT Exam Date: 11/15/2019 19:50 AccessionNumber: [id number] Patient Class: Inpatient Reason forExam: Fracture, tib/fib Technique: Helical axial images were obtained during theadministration 70ml of Isovue 370 IV contrast. One or more of the followingdosereduction techniques were utilized; automated exposure control, dosemodulation, technique adjustment based on patient size and iterativereconstruction algorithms. Multiplanar reconstructions were created andreviewed. Comparison: None Findings: Medial and lateral meniscal calcificationsare seen which are likely chondrocalcinosis. 3 compartment productive changesare seen. No aggressive osseous lesion is identified. There is a small kneeeffusion. Soft tissue edema is seen in the legs. There is a fracture in themetadiaphysis of the proximal tibia.IMPRESSION: There is a fracture in the metadiaphysis of the proximal tibia.Chondrocalcinosis is suspected. Osteoarthrosis is noted. There is a small kneeeffusion. Report electronically signed by: IVÁN KOROMA On 11/15/2019 8:36 PMWorkstation ID: [id number] Knee Complete RightResult Date: 11/15/2019. [place] [address] Patient Name: LINDSAY FWAGNER : 1935 Sex: F Ordering Provider: ALFIE AMIRAH AuthorizingProv: ALFIE MACARIO Referring Provider: Procedure Performed: XR KNEECOMPLETE RIGHT Exam Date: 11/15/2019 19:18 Patient Class: Inpatient Reason for Exam:proximal tibia fracture Technique: AP, lateral and obliques obtained.Comparison: None Findings: 3 compartment productive changes are seen. There is afracture through the proximal tibial metadiaphysis. Chondrocalcinosis is noted.IMPRESSION: There is a fracture through the proximal tibial metadiaphysis.Report electronically signed by: IVÁN KOROMA On 11/15/2019 9:17 PM WorkstationID: [id number] Tibia Fibula RightResult Date: 11/15/2019. [place] [address] Patient Name: LINDSAY STRONGAGNER : 1935 Sex: F Ordering Provider: SAMMY ZAZUETA AuthorizingProv: SAMMY ZAZUETA Referring Provider: Procedure Performed: XR TIBIA FIBULAAP AND LATERAL RIGHT Exam Date: 11/15/2019 14:22 Patient Class: Inpatient Reason for Exam:reported to have proximal tibia fx from another facility, no images availableTechnique: AP and lateral views obtained. Comparison: None Findings: Four viewsof the right tibia and fibula demonstrate a posterior splint. There is acomminuted fracture of the proximal tibia noted with slight anteriorangulation.Other visualized bony structures are unremarkable.IMPRESSION: Comminuted fracture proximal tibia. Report electronically signed by:JAY GONZÁLES On 11/15/2019 2:31 PM Workstation ID: [id number] Procedure Component Value Units Date/Time 2019 nCoV Amplified [[id number]] Collected: 11/19/19 1353 Order Status: Completed Specimen: Swab from Nasopharyngeal Updated: SPECIMEN DESCRIPTION NASOPHARYNGEAL COVID19 RESULT NOT DETECTED Comment: THIS ASSAY AMPLIFIES AND DETECTSTHE TARGET RNA USING REAL-TIME PCR.NEGATIVE 2019_NCOV RT-PCR RESULTS DONOT PRECLUDE 2019_NCOV INFECTION ANDSHOULD NOT BE USED THE SOLE BASISFOR PATIENT MANAGEMENT DECISIONS. Comment SEE NOTES Comment: THE [place] FDA HAS MADE THIS TEST AVAILABLEUNDER AN EMERGENCY USE AUTHORIZATION(EUA) FOR THE DETECTION AND/OR DIAGNOSISOF THE VIRUS THAT CAUSES COVID-19.RESULTS EMAILED TO [facility] IC AT 16:08 ON 11/19/19.86425 2018 nCoV Amplified [[id number]] Order Status: Canceled Specimen: Swab from Nasopharyngeal 2019 nCoV Amplified [[id number]] Collected: 11/19/19 1310 Order Status: Canceled Specimen: Swab from Nasopharyngeal Blood Culture x 1 Set (2 bottles aerobic and anaerobic) [[id number]] Collected:11/14/192349 Order Status: Completed Specimen: Peripheral Updated: 11/19/19 1007 Specimen Description PERIPHERAL Special Requests NONE Culture Result NO GROWTH 4 DAYS Report Status PENDING Blood Culture x 1 Set (2 bottles aerobic and anaerobic) [[id number]] Collected:11/14/190 Order Status: Completed Specimen: Peripheral Updated: 11/19/19 1007 Specimen Description PERIPHERAL Special Requests NONE Culture Result NO GROWTH 4 DAYS Report Status PENDING 2019 nCoV Amplified [[id number]] Collected: 11/19/19 0000 Order Status: Canceled Specimen: Swab from Nasopharyngeal 2019 nCoV Amplified [[id number]] Collected: 11/14/19 2231 Order Status: Completed Updated: 11/15/19 0242 SPEC IMEN DESCRIPTION NASOPHARYNGEAL COVID19 RESULT NOT DETECTED Comment: THIS ASSAY AMPLIFIES AND DETECTSTHE TARGET RNA USING REAL-TIME PCR.NEGATIVE 2019_NCOV RT-PCR RESULTS DONOT PRECLUDE 2019_NCOV INFECTION ANDSHOULD NOT BE USED THE SOLE BASISFOR PATIENT MANAGEMENT DECISIONS. Comment SEE NOTES Comment: THE [place] FDA HAS MADE THIS TEST AVAILABLEUNDER AN EMERGENCY USE AUTHORIZATION(EUA) FOR THE DETECTION AND/OR DIAGNOSISOF THE VIRUS THAT CAUSES COVID-19.EMAILED RESULTS TO [facility] AT [address] [place] . [address] 2018 nCoV Amplified [[id number]] Order Status: Completed Specimen: Swab from Nasopharyngeal 2019 nCoV Amplified [[id number]] Order Status: Canceled Specimen: Swab from NasopharyngealRecent Labs:BMP:Lab ResultsComponent Value Date NA 141 11/20/2019 K 3.7 11/20/2019 CL 105 11/20/2019 CO2 31 11/20/2019 ANIONGAP 5 (L) 11/20/2019 CALCIUM 9.2 11/20/2019 GLU 167 (H) 11/20/2019 BUN 25 (H) 11/20/2019 CREATININE 1.49 (H) 11/20/2019 GFRAA 40 (L) 11/20/2019 GFRNONAA 33 (L) 11/20/2019CBC Brief:Lab Resul tsComponent Value Date WBC 4.5 11/20/2019 HGB 7.7 (L) 11/20/2019 HCT 23.7 (L) 11/20/2019 PLT 188 11/20/2019Philip MD Lorenzo11:14 AMTotal time spent for discharge on date of discharge: 36 minutes Name Value Range Interpretation Code Description Data Beryl rce(s) Supporting Document(s) ID Date Data Source [id number] 11/20/2019 09:20:20 AM EDT [facility] Name Value Range Interpretation Code Description Data Beryl rce(s) Supporting Document(s) POC NOVA GLU 151 mg/dL (70-99) H [facility] [place] PERFORMED BY [facility]ICAL STAFF ID Date Data Source [id number] 11/20/2019 05:57:30 AM EDT [facility] Name Value Range Interpretation Code Description Data Beryl rce(s) Supporting Document(s) SODIUM 141 mmol/L (136-145) [facility] POTASSIUM 3.7 mmol/L (3.6-5.2) [facility] CHLORIDE 105 mmol/L (100-108) [facility] CO2 31 mmol/L (22-31) [facility] ANION GAP 5 mmol/L (7-16) L [facility] UREA NITROGEN 25 mg/dL (7-24) H [facility] CREATININE 1.49 mg/dL (0.60-1.00) H [facility] BUN/CREAT RATIO 16.8 RATIO (10.0-20.0) [facility] GLUCOSE 167 mg/dL (70-99) H [facility] CALCIUM 9.2 mg/dL (8.4-10.2) [facility] GFR 33 ml/min/1.73m2 (>59) L [facility] GFR ( AMER) 40 ml/min/1.73m2 (>59) L [facility] GFR INTERPRETATION [facility] --NORMAL KIDNEY FUNCTION OR MILD DISEASE - GFR >OR= 60CHRONIC KIDNEY DISEASE - GFR 15 - 59RENAL FAILURE - GFR <15 Est. GFR calculation based on the MDRDstudy equation, which assumes a steadystate for creatinine. Est. GFR should notbe used for medication dosing. ID Date Data Source [id number] 11/20/2019 05:36:27 AM EDT [facility] Name Value Range Interpretation Code Description Data Beryl rce(s) Supporting Document(s) WBC 4.5 10*3/uL (4.1-11.0) [facility] [place] RBC 2.63 10*6/uL (4.00-5.40) L [facility] HGB 7.7 g/dL (12.0-16.0) L [facility] HCT 23.7 % (36.0-47.0) L [facility] MCV 90.1 fL (80.0-95.0) [facility] MCH 29.1 pg (27.0-32.0) [facility] MCHC 32.4 g/dL (32.0-36.0) [facility] RDW 18.6 % (10.5-14.5) H [facility] PLT 188 10*3/uL (150-450) [facility] MPV 8.3 fL (7.1-10.7) [facility] ID Date Data Source [id number] 11/19/2019 05:59:03 PM EDT [facility] Name Value Range Interpretation Code Description Data Beryl rce(s) Supporting Document(s) POC NOVA GLU 242 mg/dL (70-99) H [facility] [place] [facility] STA[facility] ID Date Data Source [id number] 11/19/2019 01:53:00 PM EDT [facility] Name Value Range Interpretation Code Description Data Beryl rce(s) Supporting Document(s) SARS coronavirus 2 RNA [Presence] in Res piratory specimen by GET with probe detection [facility] This lab was reported by [facility]. ID Date Data Source [id number] 11/19/2019 04:09:42 PM EDT [facility] Name Value Range Interpretation Code Description Data Beryl rce(s) Supporting Document(s) SPECIMEN DESCRIPTION [facility] [place] COVID19 RESULT (NDET) [facility] THIS ASSAY AMPLIFIES AND DETECTSTHE TARG ET RNA USING REAL-TIME PCR.NEGATIVE 2019_NCOV RT-PCR RESULTS DONOT PRECLUDE 2019_NCOV INFECTION ANDSHOULD NOT BE USED THE SOLE BASISFOR PATIENT MANAGEMENT DECISIONS. COMMENT [facility] UNDER AN EMERGENCY USE AUTHORIZATION(EUA ) FOR THE DETECTION AND/OR DIAGNOSISOF THE VIRUS THAT CAUSES COVID-19.RESULTS EMAILED TO [facility] IC AT 16:08 ON 11/19/19.89017 ID Date Data Source [id number] 11/19/2019 09:27:49 AM EDT [facility] Name Value Range Interpretation Code Description Data Beryl rce(s) Supporting Document(s) POC NOVA GLU 101 mg/dL (70-99) H Lab [facility] PERFORMED BY [facility] CLINICAL STAFF ID Date Data Source [id number] 11/19/2019 08:53:50 AM EDT [facility] Name Value Range Interpretation Code Description Data Beryl rce(s) Supporting Document(s) SODIUM 141 mmol/L (136-145) [facility] POTASSIUM 3.4 mmol/L (3.6-5.2) L [facility] CHLORIDE 103 mmol/L (100-108) [facility] CO2 28 mmol/L (22-31) [facility] ANION GAP 10 mmol/L (7-16) [facility] UREA NITROGEN 19 mg/dL (7-24) [facility] CREATININE 1.11 mg/dL (0.60-1.00) H [facility] BUN/CREAT RATIO 17.1 RATIO (10.0-20.0) [facility] GLUCOSE 87 mg/dL (70-99) [facility] CALCIUM 8.8 mg/dL (8.4-10.2) [facility] GFR 47 ml/min/1.73m2 (>59) L [facility] GFR ( AMER) 57 ml/min/1.73m2 (>59) L [facility] GFR INTERPRETATION [facility] --NORMAL KIDNEY FUNCTION OR MILD DISEASE - GFR >OR= 60CHRONIC KIDNEY DISEASE - GFR 15 - 59RENAL FAILURE - GFR <15 Est. GFR calculation based on the MDRDstudy equation, which assumes a steadystate for creatinine. Est. GFR should notbe used for medication dosing. ID Date Data Source [id number] 11/19/2019 07:58:34 AM EDT [facility] Name Value Range Interpretation Code Description Data Beryl rce(s) Supporting Document(s) WBC 4.5 10*3/uL (4.1-11.0) [facility] [place] RBC 2.63 10*6/uL (4.00-5.40) L [facility] HGB 7.7 g/dL (12.0-16.0) L [facility] HCT 23.5 % (36.0-47.0) L [facility] MCV 89.5 fL (80.0-95.0) [facility] MCH 29.5 pg (27.0-32.0) [facility] MCHC 32.9 g/dL (32.0-36.0) [facility] RDW 18.4 % (10.5-14.5) H [facility] PLT 174 10*3/uL (150-450) [facility] MPV 8.2 fL (7.1-10.7) [facility] ID Date Data Source [id number] 11/18/2019 06:19:28 PM EDT [facility] Name Value Range Interpretation Code Description Data Beryl rce(s) Supporting Document(s) POC NOVA GLU 213 mg/dL (70-99) H [facility] [place] [facility] ID Date Data Source [id number] 11/15/2019 07:52:00 AM EDT [facility] Name: LINDSAY BLAIR : 1935 Age/S ex: 84F Attending Physician: Rita Man MD [facility] Rec #: [id number] Admission Date: 11/13/19 Room #: 307-1 Admitting Physician: Rita Royal MD Report Number: [id number] _ cc: Send Report To: Report Status - Signed CONSULTATION DATE OF CONSULTATION: November 14, 2019. She is an 84-year-old woman who was at home when she fell striking her right knee last night. She was transferred from [facility] with a nondisplaced right proximal tibia fracture, was in a posterior splint. I saw her this morning. She was comfortable. No numbness or tingling. Comfortable in the splint. Taking Tylenol only for relief of pain. She has a history of ambulating with a walker. She states she occasionally has balance issues. She does have a history of a pacemaker, cirrhosis of unknown etiology, mild dementia, type 2 diabetes, chronic pleural effusions. She fell after experiencing dizziness and then fell last night sustaining a nondisplaced proximal tibia fracture. On exam today there is minimal swelling and edema of the right lower leg. She is mildly tender to palpation over the proximal tibia, nontender about the medial and lateral joint line of the right knee, nontender about the patella tendon, and no pain to patella compression. She is neurovascularly intact in the right lower extremity. Compartments are all soft. Moving all toes with good pulses distally in the right lower extremity. Good range of motion of the left leg without discomfort. IMPRESSION: Nondisplaced proximal tibia fracture. I recommended a CT scan for her but most likely will continue with posterior splinting and then advance it to a knee immobilizer pending the results of the CT scan. Likely nonsurgical treatment at this time. Should be strict nonweightbearing right lower extremity, ice, elevation, and reportedly is going to be transferred to [facility] for evaluation of her pacemaker since she had some dizziness and it mayhave been from cardiac related. Can follow up with us after discharge in the next several days for possible placement of a knee immobilizer and should obtaina CT scan as well. Strict nonweightbearing right lower extremity. REPORT SIGNATURE ON FILE Dictated By: Rome Martínze MD <Electronically signed by Rome Martínez MD> 11/18/19 1022 Dictation Date/Time: 11/14/19 1746 Transcribed Date/Time: 11/15/19 0752/[email or web address].JAMIE Name Value Range Interpretation Code Description Data Beryl rce(s) Supporting Document(s) ID Date Data Source [id number] 11/18/2019 01:21:00 PM EDT [facility] Name Value Range Interpretation Code Description Data Beryl rce(s) Supporting Document(s) POC NOVA GLU 137 mg/dL (70-99) H [facility] [place] [facility] STA[facility] ID Date Data Source [id number] 11/18/2019 01:20:49 PM EDT [facility] Name Value Range Interpretation Code Description Data Beryl rce(s) Supporting Document(s) POC NOVA GLU 155 mg/dL (70-99) H [facility] [place] [facility] ID Date Data Source [id number] 11/18/2019 07:42:12 AM EDT [facility] Name Value Range Interpretation Code Description Data Beryl rce(s) Supporting Document(s) SODIUM 140 mmol/L (136-145) [facility] POTASSIUM 3.4 mmol/L (3.6-5.2) L [facility] CHLORIDE 104 mmol/L (100-108) [facility] CO2 30 mmol/L (22-31) [facility] ANION GAP 6 mmol/L (7-16) L [facility] UREA NITROGEN 20 mg/dL (7-24) [facility] CREATININE 1.18 mg/dL (0.60-1.00) H [facility] BUN/CREAT RATIO 16.9 RATIO (10.0-20.0) [facility] GLUCOSE 121 mg/dL (70-99) H [facility] CALCIUM 8.9 mg/dL (8.4-10.2) [facility] GFR 44 ml/min/1.73m2 (>59) L [facility] GFR ( AMER) 53 ml/min/1.73m2 (>59) L [facility] GFR INTERPRETATION [facility] --NORMAL KIDNEY FUNCTION OR MILD DISEASE - GFR >OR= 60CHRONIC KIDNEY DISEASE - GFR 15 - 59RENAL FAILURE - GFR <15 Est. GFR calculation based on the MDRDstudy equation, which assumes a steadystate for creatinine. Est. GFR should notbe used for medication dosing. ID Date Data Source [id number] 11/18/2019 07:06:27 AM EDT [facility] [place] Name Value Range Interpretation Code Description Data Beryl rce(s) Supporting Document(s) WBC 4.6 10*3/uL (4.1-11.0) [facility] [place] RBC 2.76 10*6/uL (4.00-5.40) L [facility] HGB 8.1 g/dL (12.0-16.0) L [facility] HCT 24.9 % (36.0-47.0) L [facility] MCV 90.2 fL (80.0-95.0) [facility] MCH 29.2 pg (27.0-32.0) [facility] MCHC 32.4 g/dL (32.0-36.0) [facility] RDW 18.6 % (10.5-14.5) H [facility] PLT 169 10*3/uL (150-450) [facility] MPV 8.5 fL (7.1-10.7) [facility] ID Date Data Source [id number] 11/17/2019 05:10:32 PM EDT [facility] Name Value Range Interpretation Code Description Data Beryl rce(s) Supporting Document(s) POC NOVA GLU 195 mg/dL (70-99) H [facility] [place] [facility] ID Date Data Source [id number] 11/17/2019 01:15:36 PM EDT [facility] Name Value Range Interpretation Code Description Data Beryl rce(s) Supporting Document(s) POC NOVA GLU 221 mg/dL (70-99) H [facility] [place] [facility] ID Date Data Source [id number] 11/17/2019 08:57:06 AM EDT [facility] Name Value Range Interpretation Code Description Data Beryl rce(s) Supporting Document(s) POC NOVA GLU 118 mg/dL (70-99) H [facility] [place] [facility] ID Date Data Source [id number] 11/17/2019 06:31:03 AM EDT [facility] Name Value Range Interpretation Code Description Data Beryl rce(s) Supporting Document(s) SODIUM 137 mmol/L (136-145) [facility] POTASSIUM 4.0 mmol/L (3.6-5.2) [facility] CHLORIDE 104 mmol/L (100-108) [facility] CO2 31 mmol/L (22-31) [facility] ANION GAP 2 mmol/L (7-16) L [facility] UREA NITROGEN 19 mg/dL (7-24) [facility] CREATININE 1.16 mg/dL (0.60-1.00) H [facility] BUN/CREAT RATIO 16.4 RATIO (10.0-20.0) [facility] GLUCOSE 140 mg/dL (70-99) H [facility] CALCIUM 9.2 mg/dL (8.4-10.2) [facility] GFR 45 ml/min/1.73m2 (>59) L [facility] GFR ( AMER) 54 ml/min/1.73m2 (>59) L [facility] GFR INTERPRETATION [facility] --NORMAL KIDNEY FUNCTION OR MILD DISEASE - GFR >OR= 60CHRONIC KIDNEY DISEASE - GFR 15 - 59RENAL FAILURE - GFR <15 Est. GFR calculation based on the MDRDstudy equation, which assumes a steadystate for creatinine. Est. GFR should notbe used for medication dosing. ID Date Data Source [id number] 11/17/2019 06:05:10 AM EDT [facility] [place] Name Value Range Interpretation Code Description Data Beryl rce(s) Supporting Document(s) WBC 4.6 10*3/uL (4.1-11.0) [facility] [place] RBC 2.55 10*6/uL (4.00-5.40) L [facility] HGB 7.5 g/dL (12.0-16.0) L [facility] HCT 22.6 % (36.0-47.0) L [facility] MCV 88.4 fL (80.0-95.0) [facility] MCH 29.4 pg (27.0-32.0) [facility] MCHC 33.3 g/dL (32.0-36.0) [facility] RDW 18.2 % (10.5-14.5) H [facility] PLT 161 10*3/uL (150-450) [facility] MPV 8.6 fL (7.1-10.7) [facility] ID Date Data Source [id number] 11/16/2019 05:48:31 PM EDT [facility] Name Value Range Interpretation Code Description Data Beryl rce(s) Supporting Document(s) POC NOVA GLU 256 mg/dL (70-99) H [facility] [place] [facility] ID Date Data Source [id number] 11/16/2019 03:16:00 PM EDT [facility] [place] Name Value Range Interpretation Code Description Data Beryl rce(s) Supporting Document(s) POC NOVA GLU 115 mg/dL (70-99) H [facility] [place] [facility] ID Date Data Source [id number] 11/16/2019 10:25:58 AM EDT [facility] [place] Name Value Range Interpretation Code Description Data Beryl rce(s) Supporting Document(s) POC NOVA GLU 116 mg/dL (70-99) H [facility] [place] [facility] ID Date Data Source [id number] 11/16/2019 09:22:33 AM EDT [facility] INFORMATIONPatient [facility]N Name Date of Age Gend*PT [id number] Lindsay Blair F 1935 84 years F IPPT Location Admission Date/Time Visit ID Attending [id number] 11/14/192308 --- Masood Richardson MD([id number]) EPI ID CSN Admitting Provider [id number] Silvestre Kenyon MD([id number])Ortho Consult/H&P NoteOrthopedic In-hospital consultation requested by Silvestre Kenyon [facility] Complaint: Right knee painAda F IrineoMRN: [id number] for consult: Right proximal tibia fractureImpression and Recommendations:Principal Problem: Infection of pacemaker pocketActive Problems: Aortic valve disease Cardiac pacemaker in situ Diabetes mellitus, type II Cirrhosis advanced Sinoatrial node dysfunction Encounter for pacema ker at end of battery life 10/24/2019 Elevated INR 1.4-1.7 Closed right tibial fracture Pacemaker RV lead malfunction reported Acute blood loss anemia Laceration of brow without complication, left - sutures 11/13/2019 Periorbital ecchymoses Fall 1. Right proximal tibia fracture: Conservative treatment-knee immobilizer,nonweightbearing right lower extremity. Can open knee immobilizer for skincare, etc. Can adjust knee immobilizer for comfort/position. Can follow-up inthe office after discharge-call for appointment [phone]/Imaging/Other diagnostics:CT scan right knee/x-rays right knee: Pr oximal tibia fracture-nondisplaced.Also severe knee degenerative arthritisHistory of Present Illness: 84-year-old female who fell a few days ago. Afterthe fall, complained of right knee pain. Also of no admitted [facility] to [facility] due to infected pacemaker replacement.Location: Right kneeSeverity: ModerateCharacter: AchyExacerbating factors: ActivityAlleviating factors: RestDenies bowl or bladder dysfunction. Denies any signs of infection norcancer/metastasisPast Medical History:Past Medical History:Diagnosis Date Asthma Cirrhosis of liver DM (diabetes mellitus) Encounter for pacemaker at end of battery life 10/24/2019 10/24/2019 Added automatically from request for surgery [id number] GERD (gastroesophageal reflux disease) Heart murmur History of severe nausea and vomiting after administration of anesthetic agent Hypertension PacemakerPast Surgical History:Past Surgical History:Procedure Laterality Date APPENDECTOMY CHOLECYSTECTOMY EP STUDY N/A 10/30/2019 Procedure: SJM PPM battery change; Surgeon: Bharath Escobar MD;Laterality: N/A; [facility] HYSTERECTOMY TONSILLECTOMY AND ADENOIDECTOMYMedications:Medications Prior to AdmissionMedication Sig Dispense Refill Last Dose albuterol (PROVENTIL HFA;VENTOLIN HFA) 108 (90 Base) MCG/ACT inhaler Inhale 2puffs every 4 (four) hours as needed for wheezing Past Week at Unknown time albuterol (PROVENTIL) (2.5 MG/3ML) 0.083% nebulizer solution ALBUTEROL SULFATENEBU Past Week at Unknown time furosemide (LASIX) 20 MG tablet FUROSEMIDE 20 MG TABS 11/14/2019 at Unknowntime glipiZIDE (GLUCOTROL) 5 MG tablet GLIPIZIDE 5 MG TABS Unknown at Unknowntime insulin glargine (LANTUS) 100 UNIT/ML injection Inject 32 Units under the skindaily @ 1200 11/14/2019 at 1230 Lactulose Encephalopathy 10 GM/15ML SOLN Take by mouth 3 (three) times a day11/14/2019 at 1200 nitroglycerin (NITROSTAT) 0.4 MG SL tablet NITROSTAT 0.4 MG SUBL Unknown atUnknown time Omeprazole 20 MG TBEC OMEPRAZOLE 20 MG TBEC Unknown at Unknown time spironolactone (ALDACTONE) 50 MG tablet SPIRONOLACTONE 50 MG TABS 11/14/2019at 0800Allergies:Demerol [meperidine hcl]Family History:No family history on file.Social History:Social HistoryTobacco Use Smoking status: Former Smoker Types: Cigarettes Smokeless tobacco: Former UserSubstance Use Topics Alcohol use: Not Currently Drug use: NeverReview of Systems:Constitutional:negEyes: negEars, nose, mouth, throat, and face: negRespiratory: negCardiovascular: negGastrointestinal: negGenitourinary:negIntegument/breast: negHematologic/lymphatic: negMusculoskeletal:as aboveNeurological:as aboveBehavioral/Psych:negEndocrine: negAllergic/Immunologic:as abovePhysical Exam:Temp: [96.8 F-100.1 F] 98.8 FHeart Rate: [55-69] 69Resp: [18-20] 20BP: (96-139)/(55-64) 96/55HEENT: normalNecK: Skin normal, non-tender, no masses, no spasm, normal strength, norm alstability, good ROMMotor, sensory reflexes normal in both UE; negative corbett's sign bilaterally2+ radial pulses bilaterallyRight shoulder exam: skin normal, non-tender, normal strength, normal stability,good ROMLeft shoulder exam: Skin normal, non-tender, normal strength, normal stability,good ROMThoracic exam: skin normal,no masses, no spasm, non-tender, normal strength,normal stability, good ROMLumbar exam : skin normal,no masses, no spasm, non-tender,normal strength,normal stability, good ROMMotor, sensory reflexes normal in both LERight hip: skin normal, non-tender, normal strength, normal stability, good ROMLeft hip: skin normal, non-tender, normal strength, normal stability, good ROMCalves: supple, non-tenderRight knee: Diffuse tenderness: Skin intactSignature: VICK Paniaguaate: November 15, 2019Time: 8:15 PMCC:Silvestre Kenyon MD Name Value Range Interpretation Code Description Data Beryl rce(s) Supporting Document(s) ID Date Data Source [id number] 11/16/2019 06:58:58 AM EDT [facility] Name Value Range Interpretation Code Description Data Beryl e(s) Supporting Document(s) SODIUM 141 mmol/L (136-145) [facility] POTASSIUM 3.9 mmol/L (3.6-5.2) [facility] CHLORIDE 106 mmol/L (100-108) [facility] CO2 27 mmol/L (22-31) [facility] ANION GAP 8 mmol/L (7-16) [facility] UREA NITROGEN 15 mg/dL (7-24) [facility] CREATININE 0.91 mg/dL (0.60-1.00) [facility] BUN/CREAT RATIO 16.5 RATIO (10.0-20.0) [facility] GLUCOSE 97 mg/dL (70-99) [facility] CALCIUM 8.7 mg/dL (8.4-10.2) [facility] GFR 59 ml/min/1.73m2 (>59) L [facility] GFR ( AMER) >60 ml/min/1.73m2 (>59) [facility] GFR INTERPRETATION [facility] --NORMAL KIDNEY FUNCTION OR MILD DISEASE - GFR >OR= 60CHRONIC KIDNEY DISEASE - GFR 15 - 59RENAL FAILURE - GFR <15 Est. GFR calculation based on the MDRDstudy equation, which assumes a steadystate for creatinine. Est. GFR should notbe used for medication dosing. ID Date Data Source [id number] 11/16/2019 06:26:45 AM EDT [facility] [place] Name Value Range Interpretation Code Description Data [facility](s) Supporting Document(s) WBC 4.3 10*3/uL (4.1-11.0) [facility] [place] RBC 2.52 10*6/uL (4.00-5.40) L [facility] HGB 7.5 g/dL (12.0-16.0) L [facility] HCT 22.8 % (36.0-47.0) L [facility] MCV 90.5 fL (80.0-95.0) [facility] MCH 29.9 pg (27.0-32.0) [facility] MCHC 33.0 g/dL (32.0-36.0) [facility] RDW 18.4 % (10.5-14.5) H [facility] PLT 142 10*3/uL (150-450) L [facility] MPV 8.5 fL (7.1-10.7) [facility] ID Date Data Source [id number] 11/15/2019 10:17:31 PM EDT [facility] INFORMATIONPatient MRN Name Date of Age Gend*PT [id number] Lindsay Blair F 1935 84 years F IPPT Location Admission Date/Time Visit ID Attending ProviderD-[id number] 11/14/192308 --- Masood Richardson MD([id number]) EPI ID CSN Admitting Provider [id number] Silvestre Kenyon MD([id number]) Attestation signed by Bharath Escobar MD at 11/15/2019 10:17 PMATTENDING ADDENDUM:Attestation signed by Bharath Escobar MD at 11/15/2019 10:13 PMATTENDING ADDENDUM:I saw and examined Ms. Blair today, and agree with the exam, assessment, andplan of cheikh Bethea, noted above.In brief, Ms. Blair presents with syncope with facial injury. She had recentpermanent pacemaker generator change. Her atrial and ventricular lead hadabnormal sensing. Her pacing requirements are < 1%.--- DEVICE INTERROGATION DATA ---Device: dual permanent pacemaker SJMBase rhythm: sinusAtrial and ventricular leads; abnormal sensing, excellent pacing threshold.The patient is not pacemaker-dependent.The battery is intact .Episodes: noneOverall: This represents a normal device check. No programming changes wererequired.--- END DEVICE REPORT ---Problem List:Syncope with facial injuryNo signs of device infectionsMinimal pacing requirementsPlan:Continue rhythm monitoringNo need for lead revisionWill follow as neededI agree with the plan as noted above.Drew Escobar M.D., [facility], [place] [facility]Clinical Cardiac Electrophysiology11/15/2019 10:05 PM Cardiology History and PhysicalName: Lindsay Blair Gender: femaleDate of : 1935 Age: 84 yearsDate/Time of Admit: 11/14/2019 11:09 PM Code Status: Full CodePrimary Care ProviderReferring Physician: Selwyn Bell IV, Светлана Richardson [facility] Complaint: syncopeReason for consult: syncopeHPI: The patient is a very pleasant 84 year old female who follows with Dr. Chambersfor cardiac care. She has the following past medical history:1. Liver cirrhosis on lactulose2. SSS, stp [facility] Yo[facility] PPM with recent generator change3. Asthma4. GERD5. Aortic stenosis, normal LV EF6. Echocar diogram 10/14/2019 revealed normal LV EF 60-65%, Mild MAC, mild LAE.Moderate aortic sclerosis, moderate aortic stenosis. No insufficiency.7. Hypertension8. DM9. GERDThe patient had a pacemaker generator change 10/30/2019. She was seen in follow upby Dr. Chambers. There was drainage on the dressing and he had concerns forinfection. He started her on Dicloxacillin which the patient states she took.She denies having had any fever, chills, nausea of vomiting. No erythema, edemaor tenderness at the incision site.The patient tells me that while ambulating with a walker to get a bottle ofwater a few days ago and fell. Initially she told me that she was not dizzy, buton requestioning she says she must have been dizzy and weak. She does not thinkshe lost consciousness. She really is uncertain how it happened. Evaluation [facility] showed that she had an abrasion over her eye, broke her nose andher right proximal tibia. She was found to be hypotensive by EMS. She had a lowgrade temperature. She was COVID-19 negative. [facility] [place] [place] [place] continued to be hypotensive during her admission. She doestake furosemide and spironolactone. Her INR was 1.75, she has hypoalbunemia. Shehas a history of significant liver disease.Her [employer]. Yoav permanent pacemaker was interrogated. She had some high ventricularrates were actually broken lead chatter. She has known atrial lead insulationproblem with low impendence. Her RV lead has changed as well showing noise. Thepatient was [facility].Patient currently denies significant pain. No dizziness, fever, chills, nauseaor vomiting. She again denies any tenderness at the pocket. CXR today showshemithorax thought to be secondary to effusion or consolidation and ground glassthroughout the right lung. There is some shifting of the mediastinum. ECG showssinus rhythm with some sinus arrhythmia. troponins are negative, NT pro-BNP is570. Liver function is abnormal. Albumin is low, 2.2. INR 1.5. She is anemicwith a drop in her H&H since last night from 8.4/25.6 and 7.8/23.7. Normal ironstudies. Her urinalysis is abnormal. Blood cultures are pending. Telemetryshows intermittent atrial pacing and v pacing. One episode of v beats of NSVTvsV pacing..HistoryPast Medical History:Diagnosis Date Asthma Cirrhosis of liver DM (diabetes mellitus) Encounter for pacemaker at end of battery life 10/24/2019 10/24/2019 Added automatically from request for surgery [id number] GERD (gastroesophageal reflux disease) Heart murmur History of severe nausea and vomiting after administration of anesthetic agent Hypertension PacemakerPast Surgical History:Procedure Laterality Date APPENDECTOMY CHOLECYSTECTOMY EP STUDY N/A 10/30/2019 Procedure: SJM PPM battery change; Surgeon: Bharath Escobar MD;Laterality: N/A; ST YOAV HYSTERECTOMY TONSILLECTOMY AND ADENOIDECTOMYSocial HistorySocioeconomic History Marital status: Spouse name: Not on file Number of children: Not on file Years of education: Not on file Highest education level: Not on fileOccupational History Not on fileSocial Needs Financial resource strain: Not on file Food insecurity: Worry: Not on file Inability: Not on file Transportation needs: Medical: Not on file Non-medical: Not on fileTobacco Use Smoking status: Former Smoker Types: Cigarettes Smokeless tobacco: Former UserSubstance and Sexual Activity Alcohol use: Not Currently Drug use: Never Sexual activity: Not on fileLifestyle Physical activity: Days per week: Not on file Minutes per session: Not on file Stress: Not on fileRelationships Social connections: Talks on phone: Not on file Gets together: Not on file Attends holiness service: Not on file Active member of club or organization: Not on file Attends meetings of clubs or organizations: Not on file Relations hip status: Not on file Intimate partner violence: Fear of current or ex partner: Not on file Emotionally abused: Not on file Physically abused: Not on file Forced sexual activity: Not on fileOther Topics Concern Not on fileSocial History Narrative Not on fileNo family history on file.Medications & AllergiesAllergies:AllergiesAllergen Reactions Demerol [Meperidine Hcl]Medications:Medications Prior to AdmissionMedication Sig albuterol (PROVENTIL HFA;VENTOLIN HFA) 108 (90 Base) MCG/ACT inhaler Inhale 2puffs every 4 (four) hours as needed for wheezing albuterol (PROVENTIL) (2.5 MG/3ML) 0.083% nebulizer solution ALBUTEROL SULFATENEBU furosemide (LASIX) 20 MG tablet FUROSEMIDE 20 MG TABS glipiZIDE (GLUCOTROL) 5 MG tablet GLIPIZIDE 5 MG TABS insulin glargine (LANTUS) 100 UNIT/ML injection Inject 32 Units under the skindaily @ 1200 Lactulose Encephalopathy 10 GM/15ML SOLN Take by mouth 3 (three) times a day nitroglycerin (NITROSTAT) 0.4 MG SL tablet NITROSTAT 0.4 MG SUBL Omeprazole 20 MG TBEC OMEPRAZOLE 20 MG TBEC spironolactone (ALDACTONE) 50 MG tablet SPIRONOLACTONE 50 MG TABS Scheduled Meds: furosemide 20 mg Oral QAM heparin (porcine) 5,000 Units Subcutaneous Q12H KAE insulin glargine 12 Units Subcutaneous Daily insulin lispro 1-8 Units Subcutaneous With meals sliding scale lactulose 20 g Oral 3 times daily sliding scale normal saline flush 3 mL Intravenous Per Protocol pantoprazole 40 mg Oral Daily piperacillin-tazobactam (ZOSYN) IV 3.375 g Intravenous Q6H spironolactone 50 mg Oral Daily vancomycin 1,500 mg Intravenous OnceContinuous Infusions: sodium chloride 60 mL/hr at 11/15/19 0425PRN Meds:.acetaminophen, albuterol, atropine sulfate, Maintain 2nd IV AccessAND sodium chloride (PF)Review of Systems General Admits dizziness or lightheadedness. Denies any recent, unexpected weight changes. HEENT Denies any loss or change of vision. Respiratory Denies PND, orthopnea,hemoptysis, cough, shortness of breath,DEL TORO. Cardiac Denies chest pain or pressure, or palpitations GI Denies melena, hematochezia, nausea, or vomiting. MS Denies warm or swollen joints. Neuro Denies speech, motor, or sensory impairment. Psych Denies depression or anxiety. Endo Denies polyuria or polydipsia, denies temperature intolerance. Derm Denies diaphoresis, non-healing skin woundsPhysicalTemp (24hrs), Av.2 F, Min:96.8 F, Max:100.1 FBlood Pressure: BP: 139/64 Pulse: Heart Rate: 60Temperature: Temp: 100.1 F Respirations: Resp: 18Admission Weight: Weight: 70.8 kg (156 lb) O2 Saturation: SpO2: 92 %Today's Weight: Weight: 70.8 kg (156 lb) BMI: Body mass index is 29.48 kg/m .Intake/Output Summary (Last 24 hours) at 11/15/2019 0903Last data filed at 11/15/2019 0637Gross per 24 hourIntake 424.5 mlOutput 700 mlNet -275.5 mlPhysical Exam General Well developed, well nourished, no acute distress Neck No JVD, no bruits Chest Non-tender to palpation Lungs Decreased breath sounds RLL. No crackles, rhonchi, or wheezes Heart Normal S1 S2, 3/6 harsh SM Abdomen Soft, non-tender, non-distended, no palpable HSM or masses, + bowelsounds Neuro AAOx3, no focal motor or sensory deficit Derm No rashes, or ulcers Extremities no cyanosis, no clubbing and edema. Distal pulses left lowerextremity are present. Splint on right lower extremity to thighDiagnosticsBMP:Lab ResultsComponent Value Date NA 135 (L) 11/14/2019 K 4.3 11/14/2019 CL 102 11/14/2019 CO2 28 11/14/2019 ANIONGAP 5 (L) 11/14/2019 CALCIUM 9.2 11/14/2019 GLU 197 (H) 11/14/2019 BUN 17 11/14/2019 CREATININE 1.18 (H) 11/14/2019 GFRAA 53 (L) 11/14/2019 GFRNONAA 44 (L) 11/14/2019Cardiac:Lab ResultsComponent Value Date TROPONINI <0.05 11/14/2019 PROBNP 570 (H) 11/14/2019CBC Brief:Lab ResultsComponent Value Date WBC 5.5 11/15/2019 HGB 7.8 (L) 11/15/2019 HCT 23.7 (L) 11/15/2019 PLT 149 (L) 11/15/2019Coags:Lab ResultsComponent Value Date PROTIME 15.0 (H) 11/14/2019 INR 1.46 11/14/2019 APTT 28.8 11/14/2019Electrolytes:Lab ResultsComponent Value Date NA 135 (L) 11/14/2019 K 4.3 11/14/2019 CL 102 11/14/2019 CO2 28 11/14/2019 ANIONGAP 5 (L) 11/14/2019HgbA1c:Lab ResultsComponent Value Date HGBA1C 6.2 (A) 09/13/2019 Hyperlipidemia:Lab ResultsComponent Value Date CHOL 94 09/13/2019 TRIG 53 09/13/2019 HDL 57 09/13/2019 LDLCALC 26 09/13/2019Lactate:Lab ResultsComponent Value Date LACTATE 1.7 11/14/2019Liver Functions:Lab ResultsComponent Value Date LABBILI 1.5 (H) 11/14/2019 ALKPHOS 149 (H) 11/14/2019 ALT 10 (L) 11/14/2019 AST 30 11/14/2019 ALBUMIN 2.2 (L) 11/14/2019Magnesium: No results found for: MGThyroid:Lab ResultsComponent Value Date TSH 3.611 11/14/2019Urinalysis:Lab ResultsComponent Value Date COLORU YELLOW 11/15/2019 SPECGRAV 1.005 11/15/2019 GLUCOSEU NEGATIVE 11/15/2019 KETONESU NEGATIVE 11/15/2019 BLOODU 2+ (A) 11/15/2019 NITRITE NEGATIVE 11/15/2019 LEUKOCYTESUR 2+ (A) 11/15/2019 PROTEINUA NEGATIVE 11/15/2019 BILIRUBINUR NEGATIVE 11/15/2019 UROBILINOGEN 0.2 11/15/2019 RBCU 0-2 11/15/2019 WBCU * 10-25 11/15/2019 APU CLEAR 11/15/2019POC TROPONIN: No results found for: POCTROPTSH:No results found for: H2LBZRIKB: SR with sinus arrhythmiaTelemetry: SR, 7 beats NSVT vs V pcingAssessment and PlanPrincipal Problem: Infection of pacemaker pocketActive Problems: Aortic valve disease Cardiac pacemaker in situ Diabetes mellitus, type II Cirrhosis advanced Sinoatrial node dysfunction Encounter for pacemaker at end of battery life 10/24/2019 Elevated INR 1.4-1.7 Closed right tibial fracture Pacemaker RV lead malfunction reported Acute blood loss anemia Laceration of brow without complication, left - sutures 11/13/2019 Periorbital ecchymosesInfection PPM pocket: pocket examined. Dressing was clean and dry, removed.Steri-strips in place. There are no signs of infection, no tenderness. Noleukocytosis. Blood cultures are pending. Currently on IV abx per medicine team.Fall/ near syncope: Etiology is unclear. There were no pauses, fast rates orarrhythmia on her pacemaker interrogation. There is lead noise, known on heratrial lead and new since implant on her RV. We will continue to monitor ontelemetry. She did have one episode of NSVT vs V pacing last night. Looking atpacing morphology it is more consistent with V pacing.Patient was hypotensive. Has known liver disease and hypoalbunemia. She onlytakes diuretics. Known moderate . Will monitor blood pressure. Orthostaticsmay be difficult with broken tibia. Echocardiogram requested. I do not thinkoverall her picture looks like sepsis as a cause of her fall. UA is concerningfor UTI, will defer to medicine. No leukocytosis.Anemia: History of anemia. H&H in August was 10.4/33.3. Now significantly less asabove with Initial H&H here 8.4/25.6 and now 7.8/23.7.Further management per Dr. Escobar.Signature: NICKY Grayate: November 15, 2019Time: 9:03 AM Name Value Range Interpretation Code Description Data Beryl rce(s) Supporting Document(s) ID Date Data Source [id number] 11/15/2019 09:17:33 PM EDT [place], [place] [address]Patient Name: LINDSAY Minaya ED: 1935Sex: FOrdering Provider: ALFIE Valdes Prov: ALFIE Colmenares Provider: Procedure Performed: XR KNEE COMPLETE RIGHTExam Date: 11/15/2019 19:18MRN: [id number] Number: [id number] Class: InpatientAccount #: [id number] for Exam: proximal tibia fractureTechnique: AP, lateral and obliques obtained.Comparison: NoneFindings: 3 compartment productive changes are seen. There is a fracture through the proximal tibial metadiaphysis. Chondrocalcinosis is noted.IMPRESSIO N: There is a fracture through the proximal tibial metadiaphysis.Report electronically signed by: IVÁN KOROMA On 11/15/2019 9:17 PMWorkstation ID: [id number] Name Value Range Interpretation Code Description Data Beryl rce(s) Supporting Document(s) ID Date Data Source [id number] 11/15/2019 08:36:08 PM EDT [place], [place] [address]Patient Name: LINDSAY Minaya ED: 1935Sex: FOrdering Provider: ALFIE Valdes Prov: ALFIE Colmenares Provider: Procedure Performed: CT LOWER EXTREMITY WO CONTRAST RIGHTExam Date: 11/15/2019 19:50MRN: [id number] Number: [id number] Class: InpatientAccount #: [id number] for Exam: Fracture, tib/fibTechnique: Helical axial images were obtained during the administration 70ml of Isovue 370 IV contrast.One or more of the following dose reduction techniqueswere utilized; automated exposure control, dose modulation, technique adjustment based on patient size and iterativereconstruction algorithms. Multiplanar reconstructions were created and reviewed.Comparison: NoneFindings: Medial and lateral meniscal calcifications are seen which are likely chondrocalcinosis. 3 compartment productive changes are seen. No aggressive osseous lesion is identified. There is a small knee effusion. Soft tissue edema is seen in the legs. There is a fracture in the metadiaphysis of the proximal tibia.IMPRESSION: There is a fracture in the metadiaphysis of the proximal tibia. Chondrocalcinosis is suspected. Osteoarthrosis is noted. There is a small knee effusion.Report electronically signed by: IVÁN KOROMA On 11/15/2019 8:36 PMWorkstation ID: [id number] Name Value Range Interpretation Code Description Data Beryl rce(s) Supporting Document(s) ID Date Data Source [id number] 11/15/2019 08:33:59 PM EDT [facility] Name Value Range Interpretation Code Description Data Beryl rce(s) Supporting Document(s) POC NOVA GLU 179 mg/dL (70-99) H [facility] [place] [facility]FORMED BY [facility] ID Date Data Source [id number] 11/15/2019 08:15:43 PM [facility]T [facility] NT INFORMATIONPatient MRN Name Date of Age Gend*PT [id number] Lindsay Blair F 1935 84 years F IPPT Location Admission Date/Time Visit ID Attending [id number] 11/14/19 8309 --- Masood Richardson MD([id number]) EPI ID CSN Admitting Provider [id number] Silvestre Kenyon MD([id number]) Attestation signed by Delon Elizalde MD at 11/15/2019 8:15 PMPatient seen and examined-see my noteSignature: Delon Elizalde MDDate: November 15, 2019Time: 8:15 PM --ORTHOPEDIC CONSULTConsulting Physician: Delon Elizalde [facility] referred by:Laney Terry for consult: Right proximal tibia fx, unknown type, closedHPI: Lindsay Blair is a 84 years female who [facility] and treatedfor left sided facial laceration and right LE injury. She is 2-3 wks s/ppacemaker generator exchange which has become infected. She lives independentlyin her own home. She speaks to her sister daily. When she did not answer, hersister went to check on her and found her. [facility]of [facility]. Concern for her pacemaker infection and function lead to her transferhere. She is currently in the cardiac unit.She is alert and oriented but has difficulty with specifics of the past fewweeks. She states the only thing she hurt in her fall was her left forehead andher RLE. Denies other pain. Orthopedics asked to evaluate the fracture for anytemporization changes or short term plan. She normally ambulates independentlyand denies anticoagulation medications.Past Medical History:Past Medical History:Diagnosis Date Asthma Cirrhosis of liver DM (diabetes mellitus) Encounter for pacemaker at end of battery life 10/24/2019 10/24/2019 Added automatically from request for surgery [id number] GERD (gastroesophageal reflux disease) Heart murmur History of severe nausea and vomiting after administration of anesthetic agent Hypertension PacemakerPast Surgical History:Past Surgical History:Procedure Laterality Date APPENDECTOMY CHOLECYSTECTOMY EP STUDY N/A 10/30/2019 Procedure: SJM PPM battery change; Surgeon: Bharath Escobar MD;Laterality: N/A; ST YOAV HYSTERECTOMY TONSILLECTOMY AND ADENOIDECTOMYMedications: Patient's current medication list was reviewed:Medications Prior to AdmissionMedication Sig Dispense Refill Last Dose albuterol (PROVENTIL HFA;VENTOLIN HFA) 108 (90 Base) MCG/ACT inhaler Inhale 2puffs every 4 (four) hours as needed for wheezing Past Week at Unknown time albuterol (PROVENTIL) (2.5 MG/3ML) 0.083% nebulizer solution ALBUTEROL SULFATENEBU Past Week at Unknown time furosemide (LASIX) 20 MG tablet FUROSEMIDE 20 MG TABS 11/14/2019 at Unknowntime glipiZIDE (GLUCOTROL) 5 MG tablet GLIPIZIDE 5 MG TABS Unknown at Unknowntime insulin glargine (LANTUS) 100 UNIT/ML injection Inject 32 Units under the skindaily @ 1200 11/14/2019 at 1230 Lactulose Encephalopathy 10 GM/15ML SOLN Take by mouth 3 (three) times a day11/14/2019 at 1200 nitroglycerin (NITROSTAT) 0.4 MG SL tablet NITROSTAT 0.4 MG SUBL Unknown atUnknown time Omeprazole 20 MG TBEC OMEPRAZOLE 20 MG TBEC Unknown at Unknown time spironolactone (ALDACTONE) 50 MG tablet SPIRONOLACTONE 50 MG TABS 11/14/2019at 0800Allergies:Demerol [meperidine hcl]Family History:No family history on file.Social History:Social HistoryTobacco Use Smoking status: Former Smoker Types: Cigarettes Smokeless tobacco: Former UserSubstance Use Topics Alcohol use: Not Currently Drug use: NeverReview of Systems:All systems were reviewed and found negative except for those mentioned in theHPI.PHYSICAL EXAM:Vitals: 11/15/19 1118BP: 116/58Pulse: 55Resp: 18Temp: 99.6 FSpO2: 96%NAD, A&OHead with laceration to brow, closed with sutures, ecchymosis across both eyesand cheeks.Neck supple, no posterior cervical tenderness, no pain with flexion, extension,rotationUpper extremities with diffuse small areas of ecchymosis, no open aspects, nofocal deficits or deformitiesLeft chest wall with pacemaker site, with steri-strips in place, area iserythematousBilateral lower extremities with equal leg lenghtsAble to SL raise, quads fire.LLE with +DF PF EHL FHL DP pulses and light touch sensationRLE in LL posterior splint above kneeToes are sensate, warm to touch, +DP pulseLABS:Lab ResultsComponent Value Date CREATININE 0.96 11/15/2019 BUN 16 11/15/2019 NA 136 11/15/2019 K 4.2 11/15/2019 CL 102 11/15/2019 CO2 28 11/15/2019Lab ResultsComponent Value Date WBC 5.5 11/15/2019 HGB 7.8 (L) 11/15/2019 HCT 23.7 (L) 11/15/2019 MCV 90.1 11/15/2019 PLT 149 (L) 11/15/2019Lab ResultsComponent Value Date INR 1.46 11/14/2019 PROTIME 15.0 (H) 11/14/2019No results found for: PTTIMAGING:X-rays from other facilities not provided. STAT X- rays pendingAssessment:1.) Lindsay Blair is a 84 years female with a reported left proximal tibiafracture which has been immobilized at another facility.Plan:1.) We will need X-rays to determine fracture pattern, type. Will comment onplan once images are available. Will discuss with Dr Elizalde.2.) She would benefit form some sort of DVT prophylaxis, however will defer toprimary service regarding her other active medical problems and priorities.Signature: NICKY Londonoate: November 15, 2019Time: 12:39 PM Name Value Range Interpretation Code Description Data Beryl rce(s) Supporting Document(s) ID Date Data Source [id number] 11/15/2019 02:39:57 PM EDT [facility] Name Value Range Interpretation Code Description Data Beryl rce(s) Supporting Document(s) POC NOVA GLU 72 mg/dL (70-99) [facility] [place] [facility] ID Date Data Source [id number] 11/15/2019 02:31:49 PM EDT [address], [place] [address]Nddrpzj Name: LINDSAY BLAIRDOB: 1935Sex: FOrdering Provider: SAMMY Duran Prov: SAMMY APONTEIReferring Provider: Procedure Performed: XR TIBIA FIBULA AP AND LATERAL RIGHTExam Date: 11/15/2019 14:22MRN: [id number] Number: [id number] Class: InpatientAccount #: [id number] for Exam: reported to have proximal tibia fx from another facility, no images availableTechnique: AP and lateral views obtained.Comparison: NoneFindings: Four views of the right tibia and fibula demonstrate a posterior splint. There is a comminuted fracture of the proximal tibia noted with slight anterior angulation. Other visualized bony structures are unremarkable.IMPRESSION: Comminuted fracture proximal tibia.Report electronically signed by: JAY GONZÁLES On 11/15/2019 2:31 PMWorkstation ID: [id number] Name Value Range Interpretation Code Description Data Beryl rce(s) Supporting Document(s) ID Date Data Source [id number] 11/15/2019 01:57:38 PM EDT [facility] Name Value Range Interpretation Code Description Data Beryl rce(s) Supporting Document(s) &PDF [facility] TNUDZt1wNbOPAlIq17/SIBrjGRUbb4YeVOvpNCc6GFpzPWBlK4NquUpaTSiHJ00BHwnSJTZlAdCwZMrt waW [file] ICAgICAgICAgICAgICAgICAgICAgICAgICAgICAgICAgICAgICAgICAgICAgICAgICAgICAgICAgICAg ICAgICAgICAgICAgICAgICAgICAgICAgICAgICAgDQogICAgICAgICAgICAgICAgICAgICAgICAgICAg ICAgICAgICAgICAgICAgICAgICAgICAgICAgICAgIC AgICAgICAgICAgICAgICAgICAgICAgICAgICAgICAgICAgICAgICAgDQogICAgICAgICAgICAgICAgIC AgICAgICAgICAgICAgICAgICAgICAgICAgICAgICAgICAgICAgICAgICAgICAgICAgICAgICAgICAgIC AgICAgICAgICAgICAgICAgICAgICAgDQogICAgICAg ICAgICAgICAgICAgICAgICAgICAgICAgICAgICAgICAgICAgICAgICAgICAgICAgICAgICAgICAgICAg ICAgICAgICAgICAgICAgICAgICAgICAgICAgICAgICAgDQogICAgICAgICAgICAgICAgICAgICAgICAg ICAgICAgICAgICAgICAgICAgICAgICAgICAgICAgIC AgICAgICAgICAgICAgICAgICAgICAgICAgICAgICAgICAgICAgICAgICAgDQogICAgICAgICAgICAgIC AgICAgICAgICAgICAgICAgICAgICAgICAgICAgICAgICAgICAgICAgICAgICAgICAgICAgICAgICAgIC AgICAgICAgICAgICAgICAgICAgICAgICAgDQogICAg ICAgICAgICAgICAgICAgICAgICAgICAgICAgICAgICAgICAgICAgICAgICAgICAgICAgICAgICAgICAg ICAgICAgICAgICAgICAgICAgICAgICAgICAgICAgICAgICAgDQogICAgICAgICAgICAgICAgICAgICAg ICAgICAgICAgICAgICAgICAgICAgICAgICAgICAgIC AgICAgICAgICAgICAgICAgICAgICAgICAgICAgICAgICAgICAgICAgICAgICAgDQogICAgICAgICAgIC AgICAgICAgICAgICAgICAgICAgICAgICAgICAgICAgICAgICAgICAgICAgICAgICAgICAgICAgICAgIC AgICAgICAgICAgICAgICAgICAgICAgICAgICAgDQog ICAgICAgICAgICAgICAgICAgICAgICAgICAgICAgICAgICAgICAgICAgICAgICAgICAgICAgICAgICAg LBEhIESdPCEjANJfXRXnPPYcSWGbGUDoRXAsSCZbWVElRBMeTKFrKGb9L8ssZTEgEOMhUJ2nZFs9Fx6+ JDeNPsPuKTA1bnOhnD3AUU8az5JnNDbzWEJjl9PsIH z8II8BPYZrOMbzEL9RAZhfdq5IRNHbOYDfvDZJd9rsLcZyUJT3XGJgZystDS2SKRImV2qeyqMnAHAlCJ RNLWytQHRFSAfdTVSUFBCyQUXhJkAhFUtiOE1Sa3QjbWS8HUn+Uz2MDK5zh6DcSDe5SrWeOX2uhu5NBR pDBkFkF8T8kAJsG9Y1CLuvPg3AKFCmHRPoBKRaJTQS CTixKX7IHB7apfR6NB5OjCQtFFXxXKEqeSEzRCs4J97klEKxFMlhQY8CYHK+Elida+Vx0UHKAjEEAzENNe ImUmTRZFXlEtQ15riNFlAOFrFEJjYPTfMr8TQTMwP4CounGapTmsakUoOTAiXNJPIL9NRWwhotXpsCVw uEwuCL57aWrtCM4BBn9WRiSdHT1iuv9UeXVtMz6LCG Z8Zt4SLJBoXUVzFGNiLEI5RMDvVzNoVOsbWDPdFCUjCMG2QCJlVNXpNQ1FNrEbJHIxPrUxPWAlIWRlGQ Smhd1LFUJwJBI6SJCrVVEsQVHfHZAjIBadKZCwNVHaHKw4SXXxGGYyQS6FLtRxZHFbJAXoGvOrGUUeBQ Meio7ISXXiFICxCyHeDYIySLYkULXuEYiwEYMrCKP7 WXYwAJOeSPMjAQ7RMpPyBSIuDWGbSnUlFGMgGJIsyr5EIHJzLQAgYhTpGlPvCCBnSGBgVUtjDVWpYJZ5 PqS0UDGqFQDnFY0ZTxDaDJHmSLr5HQfnLKEqJESuwp3NHHGhHXPuLAknIANhIBKdYWBjECydCIFnXQS4 EQb4DWGeMOKuWY1PAlDoZFLkACPbPCZtMRQwBZAhlp 3OTMBkYOVkWRP4WGKdAHHqWPZhIAamSOEzUROrVvF4JZNxGQVgVS7IEnUmAPGzWLJ8RsCuCGLmXZUrib 9EKYPsJVAqRZVoKPUvFBRlEHExAGupEHLtTQRaUEcdCCHdYLKxHV3ENmJwLWHiFFP4YeCoHFFgRBTrso 8HYFJlMQNcJzt6ADOwZFKrLWEbBEgyIBCxPEFnHMSd JHDqGCTgGP4ZJyXrNJKmKEVpIELcEWNnSNWdod6NFCIqDIXjGFBaWdRiCYKjKRLvEQcfFFPvXJE4GLRo KUTkHEFgBU9KJrTbQZNuDxC6PIFfXCRzYWIfaa2MUFDyRWGbNKEvEMXtKFVhWFNbHOqhATPgLVH1RxPv LHQkUHLcVN3EMnJiGUXvApNbMnKsPAZnKATqhu1QYI RuLODfYle2ILUnOVWtAFGaFTwyVSJvDBU5TzG4CTZaAXObWV4IPvUgOFKtQnz9BwRrKSYgSLQkfx0IDW XaWNM9UCS6AcRtUQRnGYRyMLfhJCNdDEWhFLZmETMtQADfOW2PUpMcCHHsUBn5BDTkNFUcGVLhtb2VJI OoYTE0RCtxAPGoGMGgDYDlPGdkSGMwRPV0VIouBVNy ZSYyRO7WFjYqAETtWAe5VwZjKPYwIYRitd6BFAXpGGX4QfL0OYLsRAKbUENaZNkeGJWkTWF4IcqbJHLj FVGmGW1PHxTuRKIdGsV7UoidLZUsKUSarp9CGDHxOUZ1STEcROOmIQTkSHLwUHi1phScrIMcXCk3GN2H H0NvbpWlULCBGl5Ph723HMOlEIQaLj8LZ7utRo9jND BaZQIXYt7QDVl6PhM0NSItElAqG0A9GFWhGSlqTyB7CVG1ZMM3WUNuTcb+UAvfJVmgUYZuKWUaEVF7VV [id number]+[id number] ID Date Data Source [id number] 11/15/2019 09:11:59 AM EDT [facility] Name Value Range Interpretation Code Description Data Beryl rce(s) Supporting Document(s) POC NOVA GLU 122 mg/dL (70-99) H [facility] [place] PERFORMED BY [facility] STAFF ID Date Data Source [id number] 11/15/2019 08:52:35 AM EDT [facility] NT INFORMATIONPatient MRN Name Date of Age Gend*PT [id number] Lindsay Blair F 1935 84 years F IPPT Location Admission Date/Time Visit ID Attending [id number] 11/14/192308 --- Masood Richardson MD([id number]) EPI ID CSN Admitting Provider [id number] Silvestre Kenyon MD([id number])Inpatient History & PhysicalAda F IrineoMRN: [id number] and Plan:Principal Problem: Infection of pacemaker pocketActive Problems: Acute blood loss anemia Cardiac pacemaker in situ Sinoatrial node dysfunction Encounter for pacemaker at end of battery life 10/24/2019 Elevated INR 1.4-1.7 Closed right tibial fracture Pacemaker RV lead malfunction reported Periorbital ecchymoses Aortic valve disease Diabetes mellitus, type II Cirrhosis advanced Laceration of brow without complication, left - sutures . Infection PPM pocket concernLower BPLow grade tempsDrainage from PPM pocket on f/u with her cardiologistOral dicloxacillin outpatient was started by cardiology outpatient reportedlyFall at home with EMS finding hypotension caused concern for sepsis...Zosyn IV utilized in [facility] ED then [facility] admitvery briefly2. RV lead noisePer their notes concern for RV lead dysfunctionThey were concerned PPM dysfunction may have promoted a fallNo mention of knowledge of lead vegetations or lead infection just pocketShe is s/p generator change this month not the leadTele continueMigeed note mentions not PPm dependent3. Hypotension at [facility] also had hemorrhage from her left lid laceration - describes large pool ofbloodHCT 25% representing likely at least some acute blood loss anemiaAdd-on anemia panelHCT > 33% just two months agoNo further hypotension reportedBaseline lower BP sounds likely, 90-100s SBP ?4. R proximal tibial fractureUpdate xray check alignmentI contacted ortho to checkLikely no surgery necessaryNo major pain at restRisk of surgery not warranted given multiple issues infection anemia PPM issueINR etc.5. R hydrothorax chronic w/ advanced liver diseaseIf no acute symptoms I don't see reason to perform workup at the momentBNP normalShe I think is used to the chronic dyspnea from thisThis has been present at least since 2018 per [facility] inpatient reportPCP looking at xray in a series over the years to monitor for change would beappropriate6. INR elevation 1.75 there 1.49 hereC/w a dvanced liver diseaseAvoid major blood thinners for now given anemia and black and blue eyes and s/ptraumaHeparin subQ DVT should be okay since > 48H from trauma and stable7. CirrhosisContinue lactuloseContinue spironolactone8. DM2 change to humalog and reduce Lantus and hold oral mediction9. Left brow lacerationShe needs sutures removed probably around 5-6 days out from 11/13/2019 on11/18/2019 approximately depending on how they look. They can be washed andcleaned gentlyAHD Full codeHistory of Present Illness: Patient had a pacemaker end of battery lifeencounter a 2-[address] Escobar. She had a new battery put in [employer]. It went uneventfully. His note mentioned she is not PPM dependent. Shehad follow-up with her supervisor rubber covering Dr. Chambers. He was concerned there was somedrainage and possible pus that could suggest a pocket infection. He had herstart taking dicloxacillin 4 times a day which she did comply with.A couple days ago she ended up having weakness and a fall. She hit her lefteyebrow and had quite a bit of bleeding. She described having a pool of bloodon the floor. She had pain in her right ramirez up towards her knee also. [facility] they found a proximal tibialfracture. She had sutures placed in her left eyebrow.Hearing the story about the possible pacemaker infection and having the fall shewas recommended to be admitted and to be transferred [facility]. She had an evaluation there and theyfound out that there is evidence for noise in the right ventricular pacemakerlead with palpation or movement of the chest wall apparently. There isconcerned that the reason she fell may have been related to pacemakerdysfunction.Apparently the ambulance found her blood pressure be severely low and they firstsaw her. She had some low-grade temperatures. With a history of a drainagefrom the pacemaker pocket they changed her from her dicloxacillin to Zosynintravenous. She had no further low blood pressures during her hospital stay.She was yesterday evening excepted to our hospital for evaluation byelectrophysiology and cardiology further. She had an uneventful ride here.Patient has no complaints at this time. There is nothing draining from herpacemaker site and it is not swollen or painful. She did have 100.1 Ftemperature. She denies any respiratory congestion or chest pain. She deniesany other source of temperature like urinary symptoms or gastrointestinal upset.She had a screen for COVID-19 that was negative.She shows me her sutures in her left eyebrow and she has ecchymosis around botheyes which she said she inks is stable she denies any new pain or swelling. Shedenies headache or neck pain.I noticed her lab work from the other facility had an international normalizedratio 1.75. She denies taking blood thinners she does have a known history ofclass B or C Child Madsen. She cannot tell me exactly what the etiology is. Shedenies that it is viral or due to alcohol. She has to take lactulose. There tom mention of an effusion in her right chest that is more chronic which soundslike hydrothorax. Records from the other hospital mention this being known allthe way back to at least 2 years ago. Patient denies any new respiratorysymptoms. Patient is 92 to 95% on room air. This is despite having any historyof the right sided effusion. She used to be a smoker as well.Patient is listed as having some memory impairment mild but also some liverdisease to where she needs to take lactulose for hyperammonia. She gives afairly good history tells me details specific about how she fell while being onthe way to get a drink in the kitchen with her wheeled walker a couple days ago.She denies ever losing consciousness. She thinks she did feel some weakness anddizziness but it happened quickly without a lot of symptoms. Blood pressureshave noted to be on the lower side. She does have history of significant liverdisease and low albumin level. She would say her blood pressure is usually lownormal and does not take blood pressure medication.Past Medical History:Past Medical History:Diagnosis Date Asthma Cirrhosis of liver DM (diabetes mellitus) Encounter for pacemaker at end of battery life 10/24/2019 10/24/2019 Added automatically from request for surgery [id number] GERD (gastroesophageal reflux disease) Heart murmur History of severe nausea and vomiting after administration of anesthetic agent Hypertension PacemakerPast Surgical History:Past Surgical History:Procedure Laterality Date APPENDECTOMY CHOLECYSTECTOMY EP STUDY N/A 10/30/2019 Procedure: SJM PPM battery change; Surgeon: Bharath Escboar MD;Laterality: N/A; [facility] HYSTERECTOMY TONSILLECTOMY AND ADENOIDECTOMYMedications:Medications Prior to AdmissionMedication Sig Dispense Refill Last Dose albuterol (PROVENTIL HFA;VENTOLIN HFA) 108 (90 Base) MCG/ACT inhaler Inhale 2puffs every 4 (four) hours as needed for wheezing Past Week at Unknown time albuterol (PROVENTIL) (2.5 MG/3ML) 0.083% nebulizer solution ALBUTEROL SULFATENEBU Past Week at Unknown time furosemide (LASIX) 20 MG tablet FUROSEMIDE 20 MG TABS 11/14/2019 at Unknowntime glipiZIDE (GLUCOTROL) 5 MG tablet GLIPIZIDE 5 MG TABS Unknown at Unknowntime insulin glargine (LANTUS) 100 UNIT/ML injection Inject 32 Units under the skindaily @ 1200 11/14/2019 at 1230 Lactulose Encephalopathy 10 GM/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 SOLN Take by mouth 3 (three) times a day11/14/2019 at 1200 nitroglycerin (NITROSTAT) 0.4 MG SL tablet NITROSTAT 0.4 MG SUBL Unknown atUnknown time Omeprazole 20 MG TBEC OMEPRAZOLE 20 MG TBEC Unknown at Unknown time spironolactone (ALDACTONE) 50 MG tablet SPIRONOLACTONE 50 MG TABS 11/14/2019at 0800Allergies:Demerol [meperidine hcl]Family History:Denies familial liver diseaseNo report of lung CASocial History:Social HistorySocioeconomic H istory Marital status: Spouse name: Not on file Number of children: Not on file Years of education: Not on file Highest education level: Not on fileOccupational History Not on fileSocial Needs Financial resource strain: Not on file Food insecurity: Worry: Not on file Inability: Not on file Transportation needs: Medical: Not on file Non-medical: Not on fileTobacco Use Smoking status: Former Smoker Types: Cigarettes Smokeless tobacco: Former UserSubstance and Sexual Activity Alcohol use: Not Currently Drug use: Never Sexual activity: Not on fileLifestyle Physical activity: Days per week: Not on file Minutes per session: Not on file Stress: Not on fileRelationships Social connections: Talks on phone: Not on file Gets together: Not on file Attends holiness service: Not on file Active member of club or organization: Not on file Attends meetings of clubs or organizations: Not on file Relationship status: Not on file Intimate partner violence: Fear of current or ex partner: Not on file Emotionally abused: Not on file Physically abused: Not on file Forced sexual activity: Not on fileOther Topics Concern Not on fileSocial History Narrative Not on fileReview of SystemsAll other systems reviewed and are negative.All systems were reviewed and foundto be negative except for those mentioned in the HPI.Temp: [96.8 F-100.1 F] 100.1 FHeart Rate: [60-62] 60Resp: [18] 18BP: (109-139)/(56-64) 139/64Physical ExamConstitutional: She is oriented to person, place, and time. She appearswell- nourished. No distress.HENT:Head: Normocephalic and atraumatic.Right Ear: External ear normal.Left Ear: External ear normal.Nose: Nose normal.Mouth/Thro at: Oropharynx is clear and moist. No oropharyngeal exudate.Eyes: Pupils are equal, round, and reactive to light. Conjunctivae and EOM arenormal. Right conjunctiva is not injected. Left conjunctiva is not injected. Noscleral icterus.Neck: Neck supple. No JVD present.Cardiovascular: Normal rate, regular rhythm and intact distal pulses. Examreveals no gallop and no friction rub.No murmur heard.Peripheral Edema: no lower extremity edema.Pulmonary/Chest: Effort normal. No respiratory distress. She has no wheezes. Shehas no rhonchi. She has no rales. She exhibits no tenderness.Decreased breath sounds severe RLL. Also I noticed that when she takes a breathand it sounds like she has some upper airway restriction but not stridor. Shedenies this says she does not notice it.Abdominal: Soft. Bowel sounds are normal. She exhibits no distension and nomass. There is no tenderness. There is no rebound and no guarding. No hernia.Lymphadenopathy: She has no cervical adenopathy.Neurological: She is alert and oriented to person, place, and time. No cranialnerve deficit. She exhibits normal muscle tone. Coordination normal.Skin: Skin is warm and dry. No rash noted. She is not diaphoretic. No erythema.No pallor.Psychiatric: She has a normal mood and affect. Her behavior is normal. Judgmentand thought content normal.Vitals reviewed.Labs, Imaging and Other Diagnostic Tests:Diagnostic test reviewed for today's visit include: X-ray, Labs and Old RecordsReviewed.Significant findings: Results for LINDSAY BLAIR ( ) as of11/15/2019 08: 23:50Sodium: 135 (L)Potassium: 4.3Chloride: 102CO2: 28Anion Gap: 5 (L)Urea nitrogen: 17Creatinine, Ser: 1.18 (H)BUN/Creatinine Ratio: 14.4GLUCOSE: 197 (H)Calcium: 9.2Total Protein: 6.1 (L)Albumin: 2.2 (L)Globulin: 3.9Alb/Glob ratio: 0.6Bilirubin, Total: 1.5 (H)AST: 30ALT: 10 (L)GFR MDRD Non Af Amer: 44 (L)GFR MDRD Af Amer: 53 (L)Glom Filt Rate, Est: SEE NOTESAlkaline Phosphatase: 149 (H)LD: 208Troponin I: <0.05NT-pro BNP: 570 (H)Lactate, Agapito: 1.7WBC: 5.7RBC: 2.85 (L)Hematocrit: 25.6 (L)Hemoglobin: 8.4 (L)MCV: 90.0MCH: 29.5MCHC: 32.8RDW: 18.5 (H)Platelets: 161MPV: 8.8Neutrophils %: 76.8 (H)Lymphocytes Relative: 8.9 (L)Monocytes Relative: 12.6 (H)Eosinophils Relative: 1.1Basophils Relative: 0.6Neutrophils Absolute: 4.3Lymphocytes Absolute: 0.5 (L)Monocytes Absolute: 0.7Basophils Absolute: 0.0Protime: 15.0 (H)INR: 1.46aPTT: 28.8TSH, High Sensitivity: 3.6 23:52Ammonia: 26.Signature: Silvestre Kenyon, MDDate: November 15, 2019Time: 8:52 AM Name Value Range Interpretation Code Description Data Beryl rce(s) Supporting Document(s) ID Date Data Source [id number] 11/15/2019 06:52:35 AM EDT [facility] Name Value Range Interpretation Code Description Data Beryl rce(s) Supporting Document(s) EKG [facility] FPYUFv5zKwYXUfKtj0HjVyTuILBkSA5vrgy1E2Q9cHDzU4UwuVYtj3ugJ0LzQ7WnTPQbRFHJMD5KbCLw jb2 [file] /a+Emeka///fnXW/h//vqvf/vrf/nb//Gnt+fP3/7vv/7b3/2zp3Jopn9/Ek/7/O/f/vWvOZ8/5j///PPP Kc74+fcff/53B68UrSmH05XCwjGxDGWTmyjMia7Dww UzppaPNY8UdezmYFGHeBQQTxs7gkHk92SIcvIaczI5JV0AG4layrbfTQ2n0aKskc6jxQzZvgQ6k2s6St iJgG4W7Kypar67kE0NP6f2ozakQX3d6tMzfz9hhFyGowO1s3e9MduBzE0u2ovhrsW5YI7AIZpVwjugCZ GcRbXovr3tiZbZxh52b2m5Apq4jL9P3Vmdcfv2WI9T CFltumtaSBKbVdPzhg6xUvW5AXv0xO2P9Ivcrsr8BI6Cg34j4MX3i5Muctz3mksNAdx3AeneG6iMemLw 7WvVy7yx5JUrK4Abzg1ZbCu6UWE4blVd3S4SopYaMtsoUNyvb4tDsMq7Yd7JxztZe6o0n8DhV8a48S8s 9Ffd57X5MxZzesnA4aP6IIceXc9GEa8+tZ5r0dvvch 76oI8SYzz3yrfxARynmeJxkb2wdAtKny60j8t9Aln4x7/L8mD+ejI/fDQ/X8/mhw/n5+vp digital marketing/PDx/Hw9nx 8+oJ+vJ/TDR/Tz9Yx++HANG+vp7SDx/Qv9u1eHE9Xq7QwEKv9ZSa2JkLTRpi4m7FB+WeXgCV0DaKUKaq3y [file] 9Xc131JFDmVZRJFfn+CyeznRBkqCixYBSLVNM8FleQBDPKZ2B= ID Date Data Source [id number] 11/15/2019 10:08:30 AM EDT [facility] Name Value Range Interpretation Code Description Data Beryl rce(s) Supporting Document(s) SODIUM 136 mmol/L (136-145) [facility] POTASSIUM 4.2 mmol/L (3.6-5.2) [facility] CHLORIDE 102 mmol/L (100-108) [facility] CO2 28 mmol/L (22-31) [facility] ANION GAP 6 mmol/L (7-16) L [facility] UREA NITROGEN 16 mg/dL (7-24) [facility] CREATININE 0.96 mg/dL (0.60-1.00) [facility] BUN/CREAT RATIO 16.7 RATIO (10.0-20.0) [facility] GLUCOSE 103 mg/dL (70-99) H [facility] CALCIUM 8.7 mg/dL (8.4-10.2) [facility] GFR 55 ml/min/1.73m2 (>59) L [facility] GFR ( AMER) >60 ml/min/1.73m2 (>59) [facility] GFR INTERPRETATION [facility] --NORMAL KIDNEY FUNCTION OR MILD DISEASE - GFR >OR= 60CHRONIC KIDNEY DISEASE - GFR 15 - 59RENAL FAILURE - GFR <15 Est. GFR calculation based on the MDRDstudy equation, which assumes a steadystate for creatinine. Est. GFR should notbe used for medication dosing. ID Date Data Source [id number] 11/15/2019 09:48:50 AM EDT [facility] Name Value Range Interpretation Code Description Data Beryl rce(s) Supporting Document(s) WBC 5.5 10*3/uL (4.1-11.0) [facility] RBC 2.63 10*6/uL (4.00-5.40) L [facility] HGB 7.8 g/dL (12.0-16.0) L [facility] HCT 23.7 % (36.0-47.0) L [facility] MCV 90.1 fL (80.0-95.0) [facility] MCH 29.6 pg (27.0-32.0) [facility] MCHC 32.9 g/dL (32.0-36.0) [facility] RDW 18.3 % (10.5-14.5) H [facility] PLT 149 10*3/uL (150-450) L [facility] MPV 8.9 fL (7.1-10.7) [facility] ID Date Data Source [id number] 11/15/2019 06:09:49 AM EDT [address] [place] [address]Xawhrdb Name: LINDSAY SULLIVANB: 1935Sex: FOrdering Provider: SILVESTRE Silva Prov: SILVESTRE Antonio Provider: Procedure Performed: XR CHEST PORTABLEExam Date: 11/15/2019 00:34MRN: [id number] Number: [id number] Class: InpatientAccount #: [id number] for Exam: check pacer lead positionTechnique: AP portable view obtained.Comparison: NoneFindings: A single frontal view of the chest demonstrates an opacification of the lower right hemithorax likely secondary to a combination of effusion and consolidation. Groundglass opacities throughout remainder of the right lung. Some density at the right lung apex may be secondary to pleural thickening or loculated effusion. Left lung is clear. Dual-chamber left-sided pacemaker is noted with leads overlying the region of the right ventricle. Mediastinum appears slightly shifted to the right.IMPRESSION: 1. Opacification lower right hemithorax likely secondary to effusion and consolidation with perhaps some loculated effusion at the right apex and groundglass opacities throughout the remainder of the right lung.2. Some shifting of the mediastinum to the right some of which may be technical.Report electronically signed by: JAY GONZÁLES On 11/15/2019 6:09 AMWorkstation ID: [id number] Name Value Range Interpretation Code Description Data Beryl rce(s) Supporting Document(s) ID Date Data Source [id number] 11/15/2019 05:30:37 AM EDT [facility] Name Value Range Interpretation Code Description Data Beryl rce(s) Supporting Document(s) URINE WBC (0-5) [facility] URINE RBC (0-2) [facility] EPITHELIAL CELLS 2+ [HPF] [facility] BACTERIA 2+ [HPF] [facility] CAOX CRYSTALS 1+ [HPF] [facility] COMMENT [facility] POSSIBLE RARE YEAST PRESENT ID Date Data Source [id number] 11/15/2019 05:22:11 AM EDT [facility] Name Value Range Interpretation Code Description Data Beryl rce(s) Supporting Document(s) COLOR [facility] APPEARANCE [facility] SPEC GRAV URINE 1.005 (1.003-1.030) [facility] PH URINE 6.0 (5.0-7.5) [facility] LEUK ESTERASE 2+ (NEG) A [facility] NITRITE URINE (NEG) [facility] PROTEIN URINE (NEG) [facility] GLUCOSE URINE (NEG) [facility] KETONE URINE (NEG) [facility] UROBILINOGEN 0.2 mg/dL (0-1.0) [facility] BILIRUBIN URINE (NEG) [facility] BLOOD/HGB URINE 2+ (NEG) A [facility] ID Date Data Source [id number] 11/15/2019 04:51:10 AM EDT [facility] Name Value Range Interpretation Code Description Data Beryl rce(s) Supporting Document(s) URN CULTURE HOLD [facility] FOR ADD ON CULTURE ID Date Data Source [id number] 11/15/2019 12:53:28 AM EDT [facility] Name Value Range Interpretation Code Description Data Beryl rce(s) Supporting Document(s) AMMONIA 26 umol/L (11-32) [facility] ID Date Data Source [id number] 11/15/2019 09:16:32 AM EDT [facility] Name Value Range Interpretation Code Description Data Beryl rce(s) Supporting Document(s) IRON,TOTAL @ 42 ug/dL (35-150) [facility] UIBC @ 257 ug/dL (130-375) [facility] TIBC @ 299 ug/dL (250-450) [facility] % SATURATION 14 % (12-50) [facility] ID Date Data Source [id number] 11/15/2019 09:16:32 AM EDT [facility] Name Value Range Interpretation Code Description Data Beryl rce(s) Supporting Document(s) FOLATE @ 11.8 ng/mL (3.1-17.5) [facility] ID Date Data Source [id number] 11/15/2019 09:16:32 AM EDT [facility] Name Value Range Interpretation Code Description Data Beryl rce(s) Supporting Document(s) FERRITIN @ 85 ng/mL (8-252) [facility] ID Date Data Source [id number] 11/15/2019 09:16:32 AM EDT [facility] Name Value Range Interpretation Code Description Data Beryl rce(s) Supporting Document(s) C REACTIVE PROTEIN @ 4.3 mg/dL (0.0-0.5) H [facility] ID Date Data Source [id number] 11/15/2019 09:16:32 AM EDT [facility] Name Value Range Interpretation Code Description Data Beryl rce(s) Supporting Document(s) VITAMIN B12 @ 697 pg/mL (193-986) [facility] ID Date Data Source [id number] 11/15/2019 08:53:19 AM EDT [facility] Name Value Range Interpretation Code Description Data Beryl rce(s) Supporting Document(s) RETIC % 3.4 % (0.6-2.1) H [facility] PERFORMED AT [address] [place] [id number] RETIC INDEX 2.1 % (0.5-1.9) H [facility] ABSOLUTE RETIC 0.10 10*6/uL (0.027-0.101) [facility] ID Date Data Source [id number] 11/15/2019 03:31:44 AM EDT [facility] Name Value Range Interpretation Code Description Data Beryl rce(s) Supporting Document(s) LDH 208 U/L (84-246) [facility] ID Date Data Source [id number] 11/15/2019 01:38:22 AM EDT [facility] Name Value Range Interpretation Code Description Data Beryl rce(s) Supporting Document(s) PROCALCITONIN @ 0.39 ng/mL (<0.10) H [facility] INTERPRETATION OF RESULT < 0.51 Sepsis is not likely.0.51-2.00 Sepsis is possible, but other conditions are known to elevate PCT.2.01-9.99 Sepsis is likely, unless other causes are known. > 9.99 Important systemic inflammatory response, almost exclusively due to severe bacterial sepsis or septic shock.PERFORMED AT [address] [place] [address] ID Date Data Source [id number] 11/15/2019 01:21:04 AM EDT [facility] Name Value Range Interpretation Code Description Data Beryl rce(s) Supporting Document(s) TSH,ULTRASENSITIVE @ 3.611 mIU/L (0.360-4.170) [facility] PERFORMED AT [address] [place] [address] [place] [address] ID Date Data Source [id number] 11/15/2019 01:21:04 AM EDT [facility] Name Value Range Interpretation Code Description Data Beryl rce(s) Supporting Document(s) NT PRO BNP 570 pg/mL (0-450) H [facility] ID Date Data Source [id number] 11/15/2019 01:21:04 AM EDT [facility] Name Value Range Interpretation Code Description Data Beryl rce(s) Supporting Document(s) TROPONIN I <0.05 ng/mL (<0.05) [facility] Less than 0.05: Myocardial injury unlike lyGreater than or equal to 0.05: Highly suggestive of myocardial injuryCorrelation with rise and/or fall ofserial troponins, clinical symptomsand ECG changes is necessary. ID Date Data Source [id number] 11/15/2019 01:21:04 AM EDT [facility] Name Value Range Interpretation Code Description Data Beryl rce(s) Supporting Document(s) SODIUM 135 mmol/L (136-145) L [facility] POTASSIUM 4.3 mmol/L (3.6-5.2) [facility] CHLORIDE 102 mmol/L (100-108) [facility] CO2 28 mmol/L (22-31) [facility] ANION GAP 5 mmol/L (7-16) L [facility] UREA NITROGEN 17 mg/dL (7-24) [facility] CREATININE 1.18 mg/dL (0.60-1.00) H [facility] BUN/CREAT RATIO 14.4 RATIO (10.0-20.0) [facility] GLUCOSE 197 mg/dL (70-99) H [facility] CALCIUM 9.2 mg/dL (8.4-10.2) [facility] TOTAL PROTEIN 6.1 g/dL (6.4-8.2) L [facility] ALBUMIN 2.2 g/dL (3.2-4.5) L [facility] GLOBULIN 3.9 g/dL (2.7-4.3) [facility] ALB/GLOB RATIO 0.6 RATIO [facility] ALKALINE PHOSPHATASE 149 U/L (45-117) H [facility] BILIRUBIN,TOTAL 1.5 mg/dL (0.0-1.0) H [facility] PLEASE NOTE:Total bilirubin results may be falselyelevated in patients taking Eltrombopag. AST (SGOT) 30 U/L (11-39) [facility] ALT (SGPT) 10 U/L (12-78) L [facility] GFR 44 ml/min/1.73m2 (>59) L [facility] GFR ( AMER) 53 ml/min/1.73m2 (>59) L [facility] GFR INTERPRETATION [facility] --NORMAL KIDNEY FUNCTION OR MILD DISEASE - GFR >OR= 60CHRONIC KIDNEY DISEASE - GFR 15 - 59RENAL FAILURE - GFR <15 Est. GFR calculation based on the MDRDstudy equation, which assumes a steadystate for creatinine. Est. GFR should notbe used for medication dosing. ID Date Data Source [id number] 11/15/2019 12:52:57 AM EDT [facility] Name Value Range Interpretation Code Description Data Beryl rce(s) Supporting Document(s) APTT 28.8 s (22.0-34.3) [facility] ID Date Data Source [id number] 11/15/2019 12:52:57 AM EDT [facility] Name Value Range Interpretation Code Description Data Beryl rce(s) Supporting Document(s) PT 15.0 s (9.2-11.9) H [facility] INR 1.46 [facility] SUGGESTED THERAPEUTIC RANGES USING INR F ORSTABILIZED ANTICOAGULATED PATIENTS:STANDARD DOSE THERAPY INR 2.0-3.0 DVT, PE, PREVENT DVT OR EMBOLISMHIGH DOSE THERAPY INR 2.5-3.5 PREVENT EMBOLISM FROM MECHANICAL HEART VALVE ID Date Data Source [id number] 11/15/2019 12:40:27 AM EDT [facility] Name Value Range Interpretation Code Description Data Beryl rce(s) Supporting Document(s) WBC 5.7 10*3/uL (4.1-11.0) [facility] [place] RBC 2.85 10*6/uL (4.00-5.40) L [facility] HGB 8.4 g/dL (12.0-16.0) L [facility] HCT 25.6 % (36.0-47.0) L [facility] MCV 90.0 fL (80.0-95.0) [facility] MCH 29.5 pg (27.0-32.0) [facility] MCHC 32.8 g/dL (32.0-36.0) [facility] RDW 18.5 % (10.5-14.5) H [facility] PLT 161 10*3/uL (150-450) [facility] MPV 8.8 fL (7.1-10.7) [facility] NEUT % 76.8 % (35.0-75.0) H [facility] LYMPH % 8.9 % (16.0-52.0) L [facility] MONO % 12.6 % (0.0-8.0) H [facility] EOS % 1.1 % (0.0-5.0) [facility] BASO % 0.6 % (0.0-4.0) [facility] NEUT # 4.3 10*3/uL (1.8-7.7) [facility] LYMPH # 0.5 10*3/uL (1.2-4.8) L [facility] MONO # 0.7 10*3/uL (0.0-0.8) [facility] Eosinophils [#/volume] in Blood by Automated count 0.1 10*3/uL (0.0-0 .5) [facility] BASO # 0.0 10*3/uL (0.0-0.2) [facility] ID Date Data Source [id number] 11/15/2019 12:38:21 AM EDT [facility] Name Value Range Interpretation Code Description Data Beryl rce(s) Supporting Document(s) LACTIC ACID 1.7 mmol/L (0.4-2.0) [facility] ID Date Data Source [id number] 11/21/2019 10:17:03 AM EDT [facility] [place] SPECIMEN DESCRIPTION PERIPHERALSP ECIAL REQUESTS NONECULTURE RESULTS NO GROWTH 6 DAYSREPORT STATUS FINAL 11/21/2019 Name Value Range Interpretation Code Description Data Beryl rce(s) Supporting Document(s) ID Date Data Source [id number] 11/21/2019 10:17:03 AM EDT [facility] SPECIMEN DESCRIPTION PERIPHERALSP ECIAL REQUESTS NONECULTURE RESULTS NO GROWTH 6 DAYSREPORT STATUS FINAL 11/21/2019 Name Value Range Interpretation Code Description Data Beryl rce(s) Supporting Document(s) ID Date Data Source [id number] 11/15/2019 02:42:44 AM EDT [facility] Name Value Range Interpretation Code Description Data Beryl rce(s) Supporting Document(s) SPECIMEN DESCRIPTION [facility] COVID19 RESULT (NDET) [facility] THIS ASSAY AMPLIFIES AND DETECTSTHE TARG ET RNA USING REAL-TIME PCR.NEGATIVE 2019_NCOV RT-PCR RESULTS DONOT PRECLUDE 2019_NCOV INFECTION ANDSHOULD NOT BE USED THE SOLE BASISFOR PATIENT MANAGEMENT DECISIONS. COMMENT [facility] UNDER AN EMERGENCY USE AUTHORIZATION(EUA ) FOR THE DETECTION AND/OR DIAGNOSISOF THE VIRUS THAT CAUSES COVID-19.EMAILED RESULTS TO [facility] AT 8774 QI [id number]. [id number] ID Date Data Source [id number] 11/14/2019 10:31:00 PM EDT [facility] Name Value Range Interpretation Code Description Data Beryl rce(s) Supporting Document(s) SARS coronavirus 2 RNA [Presence] in Res piratory specimen by GET with probe detection [facility] This lab was reported by [facility]. ID Date Data Source [id number] 11/14/2019 09:28:00 PM EDT [facility] Name Value Range Interpretation Code Description Data Beryl rce(s) Supporting Document(s) LAB Glucose,Fingerstick 204 mg/dL 70-110 Above high normal [facility] ID Date Data Source [id number] 11/14/2019 02:45:00 PM EDT [facility] Name: LINDSAY BLAIR : 1935 Age/S ex: 84F Ordering Provider: Laney Silvestre MD Med Rec #: [id number] Reg Status:ADM IN Room #: 307-1 Date of Service: 11/14/19 Report Number: [id number] cc: Selwyn Bell, IV, BLOCK PILER; Laney Silvestre MD Send Report To: Echocardiogram Complete Ordering Phys: MANISH, Referring Phys: MANISH, Exam Location: [facility] Exam Date: 11/14/2019 15:08 Indications: LIMITED-EF, RIGHT SIDED PRESSURE, IVC. IP 307-1 BP 125 / 63 Rhythm: Technical Quality: Very technically difficult study Contrast: Definity Total Dose (mL): 2 MEASUREMENTS (Male / Female) Normal Values DOPPLER Measurement TR Peak Velocity 183 cm/s TR Peak Gradient 13.4 mmHg FINDINGS Left Ventricle: Technically difficult study with limited acoustic windows. Definity contrast utilized to enhance visualization of the LV. Hyperdynamic left ventricle, LVEF estimated at 65-70%. Right Ventricle: Right Atrium: The IVC is normal in size and collapses with inspiration. Left Atrium: Mitral Valve: Aortic Valve: Tricuspid Valve: Suboptimal tricuspid regurgitation jet to estimate pulmonary artery pressure. Pulmonic Valve: Pericardium: No pericardial effusion/thickening. Aorta: CONCLUSIONS Limited Study. Technically difficult study with limited acoustic windows. Definity contrast utilized to enhance visualization of the LV. Normal LV size and systolic function. Hyperdynamic left ventricle, LVEF estimated at 65-70%. Normal RV size. Suboptimal tricuspid regurgitation jet to estimate pulmonary artery pressure. No pericardial effusion/thickening. REPORT SIGNATURE ON FILE 11/14/19 1818 Reported By: Anshu Galeano MD <Electronically signed by Anshu Galeano MD in OV> Exam Date/Time: 11/14/19 1445 Order #: [id number] Dictation Date/Time: 11/14/19 1508 Transcribed Date/Time: Salon Sales Consultant: Name Value Range Interpretation Code Description Data [facility] rce(s) Supporting Document(s) ID Date Data Source [id number] 11/14/2019 04:54:00 PM EDT [facility] 11/13Positive Reference range: Negativ e for occult blood.TNP. Only one specimen submitted. Reference range: Negative for occult blood.TNP. Only one specimen submitted. Name Value Range Interpretation Code Description Data [facility] rce(s) Supporting Document(s) ID Date Data Source [id number] 11/15/2019 01:50:00 PM EDT [facility] Name: LINDSAY BLAIR : 1935 Age/S ex: 84F Ordering Provider: Laney Silvestre MD Med Rec #: [id number] Reg Status: DIS IN Room #: 307-1 Date of Service: 11/14/19 Report Number: [id number] cc:Selwyn Bell IV, BLOCK PILER; Laney Silvestre MD Send Report To: [id number] XRP/XR Chest Xray Portable Reason for exam: hypotensive Comparison is made to 11/13/2019 FINDINGS: Again noted is moderate pleural effusion with suggestion for some loculation. There is some shift to the cardiomediastinum towards the right suggesting atelectatic changes likely are present on the right as well. Heart size is difficult to determine due to the pleuroparenchymal changes on the right. Vascular pattern is normal. The left lung is clear. IMPRESSION: Persistent pleural effusion along with some suspected atelectasis in the right hemithorax similar to to 11/13/2019 study given degree of inspiration. Left lung grossly clear. Fluoroscopy time in seconds: Number of Exposures: Time Portable Image Performed: 1247 Contrast Agent in ml: Method of Administration: REPORT SIGNATURE ON FILE Reported By: Chikis Moreau MD <Electronically signed by Chikis Moreau MD> 11/18/19 0948 Dictation Date/Time: 11/14/19 1351 Transcribed Date/Time: 11/15/19 1350 Salon Sales Consultant: ROZAP Name Value Range Interpretation Code Description Data Beryl rce(s) Supporting Document(s) ID Date Data Source [id number] 11/14/2019 11:26:00 AM EDT [facility] Name Value Range Interpretation Code Description Data Beryl rce(s) Supporting Document(s) LAB Glucose,Fingerstick 257 mg/dL 70-110 Above high normal [facility] ID Date Data Source [id number] 11/14/2019 01:48:00 PM EDT [facility] Name Value Range Interpretation Code Description Data Beryl rce(s) Supporting Document(s) Procalcitonin 0.00-0.24 Above high normal [facility] 1.Risk of Progression to severe sepsis a nd septic shock: < 0.50 ng/mL Low Risk of severe sepsis and/or septic shock > 2.00 ng/mL High Risk of severe sepsis and/or septic shock 2.Decision on antibiotic discontinuation for suspected or confirmed septic patients: Antibiotic therapy may be discontinued if the current PCT is <0.50 ng/mL or if there is an 80% decrease in PCT. 3.Decision for antibiotic therapy for patients with suspected or confirmed Lower Respiratory Tract Infection (LRTI): >0.25 ng/mL - Antibiotic therapy encouraged 4.Decision on antibiotic discontinuation for patients with suspected or confirmed LRTI: Antibiotic therapy may be discontinued if the current PCT is <0.25 ng/mL or if there is an 80% decrease in PCT. NOTE: Antibiotic therapy should be considered regardless of PCT result if the patient is clinically unstable, is at high risk for adverse outcome, has strong evidence of bacterial pathogen or the clinical context indicates antibiotic therapy is warranted. ID Date Data Source [id number] 11/14/2019 12:06:00 PM EDT [facility] Name Value Range Interpretation Code Description Data Beryl rce(s) Supporting Document(s) PT 9.4-12.5 Above high normal [facility] INR Normal (applies to non-numeric results) [facility] The use of the INR is restricted to mita ents on stable oral anticoagulant. Therapeutic Range: 2.0-3.0 High Risk Values: 2.5-3.5 ID Date Data Source [id number] 11/14/2019 12:05:00 PM EDT [facility] Name Value Range Interpretation Code Description Data Beryl rce(s) Supporting Document(s) Sodium 132 mmol/L 137-145 Below low normal [facility] Potassium 3.5-5.1 Normal (applies to non-numeric resul ts) [facility] Chloride 98 mmol/L 98-112 Normal (applies to non-numeric resul ts) [facility] Carbon Dioxide CO2 22.0-33.0 Normal (applies to non-numer ic results) [facility] Anion Gap 4.0-11.0 Normal (applies to non-numeric resul ts) [facility] BUN 16 mg/dL 7-17 Normal (applies to non-numeric resul ts) [facility] Creatinine 0.70-1.20 Normal (applies to non-numeric resul ts) [facility] GFR 46 mL/min >60 Below low normal [facility] Result based on MDRD formula. Glucose Level 239 mg/dL 74-99 Above high normal [facility] The reference range is only applicable w hen fasting. Calcium-Uncorrected 8.4-10.2 Normal (applies to non-nume ronaldo results) [facility] Corrected Calcium 8.4-10.2 Above high normal [facility] Bilirubin,Total 0.2-1.3 Above high normal [facility] SGOT(AST) 32 U/L 14-36 Normal (applies to non-numeric resul ts) [facility] SGPT(ALT) 9 U/L 9-52 Normal (applies to non-numeric resul ts) [facility] Alkaline Phosphatase 182 U/L 38-126 Above high normal [facility] can increase Alkaline Phosp le vels up to 2 times the normal adult value. Normal values for children and adolescents are 2 to 3 times the normal adult value. Total Protein 6.3-8.2 Below low normal [facility] Albumin 3.5-5.0 Below low normal [facility] ID Date Data Source [id number] 11/14/2019 12:05:00 PM EDT [facility] Name Value Range Interpretation Code Description Data Beryl rce(s) Supporting Document(s) Phosphorus 2.5-4.9 Normal (applies to non-numeric resul ts) [facility] ID Date Data Source [id number] 11/14/2019 12:05:00 PM T [facility] Name Value Range Interpretation Code Description Data Beryl rce(s) Supporting Document(s) Magnesium 1.80-2.40 Normal (applies to non-numeric resul ts) [facility] ID Date Data Source [id number] 11/14/2019 12:05:00 PM EDT [facility] Name Value Range Interpretation Code Description Data Beryl rce(s) Supporting Document(s) Bilirubin,Direct 0.0-0.3 Above high normal [facility] ID Date Data Source [id number] 11/14/2019 12:05:00 PM T [facility] Name Value Range Interpretation Code Description Data Beryl rce(s) Supporting Document(s) C-Reactive Protein,Wide Range <3.00 Above high normal [facility] ID Date Data Source [id number] 11/14/2019 11:19:00 AM T [facility] Name Value Range Interpretation Code Description Data Beryl rce(s) Supporting Document(s) White Blood Count 4.8-10.8 Normal (applies to non-numeri c results) [facility] Red Blood Count 3.68-5.22 Below low normal [facility] Hemoglobin 11.2-15.7 Below low normal [facility] Hematocrit 34.1-44.9 Below low normal [facility] Mean Corpuscular Volume 81-99 Normal (applies to non- numeric results) [facility] Mean Corpuscular Hemoglobin 27.0-33.0 Normal (appli es to non-numeric results) [facility] Mean Corpuscular HGB Conc 32.0-36.0 Normal (applies to no n-numeric results) [facility] Red Cell Distribution Width 11.5-14.5 Above high normal [facility] Platelet Count 160 X10 3/uL 130-450 Normal (applies to non-numeric results) [facility] Mean Platelet Volume 9.5-12.7 Normal (applies to non-num omer results) [facility] Imm Grans% (AUTO) 0 % 0-2 Normal (applies to non-numeri c results) [facility] Neutrophils % (AUTO) 81 % 40-75 Above high normal [facility] Lymphocytes % (AUTO) 7 % 21-46 Below low normal [facility] Monocytes % (AUTO) 11 % 5-12 Normal (applies to non-numer ic results) [facility] Eosinophils % (AUTO) 1 % 1-5 Normal (applies to non-num omer results) [facility] Basophils % (AUTO) 0 % 0-1 Normal (applies to non-numer ic results) [facility] Imm Grans# (AUTO) 0.0-0.5 Normal (applies to non-numeri c results) [facility] Neutrophils # (AUTO) 1.5-8.1 Normal (applies to non-num omer results) [facility] Lymphocytes # (AUTO) 1.0-3.1 Below low normal [facility] Monocytes # (AUTO) 0.2-1.3 Normal (applies to non-numer ic results) [facility] Eosinophils# (AUTO) 0.0-0.5 Normal (applies to non-nume ronaldo results) [facility] Basophils # (AUTO) 0.0-0.1 Normal (applies to non-numer ic results) [facility] ID Date Data Source [id number] 11/14/2019 07:25:00 AM EDT [facility] Name Value Range Interpretation Code Description Data Beryl rce(s) Supporting Document(s) LAB Glucose,Fingerstick 266 mg/dL 70-110 Above high normal [facility] ID Date Data Source [id number] 11/19/2019 07:13:00 AM EDT [facility] Name Value Range Interpretation Code Description Data Beryl rce(s) Supporting Document(s) Blood Culture-Venous [facility] ID Date Data Source [id number] 11/14/2019 06:18:00 AM EDT [facility] Name Value Range Interpretation Code Description Data Beryl rce(s) Supporting Document(s) Respiratory specimen severe acute respir atory syndrome coronavirus 2 (SARS-CoV-2) RNA [facility] This lab was ordered by Armando alford and reported by . ID Date Data Source [id number] 11/14/2019 04:17:00 AM EDT [facility] Name Value Range Interpretation Code Description Data Beryl rce(s) Supporting Document(s) LAB Glucose,Fingerstick 297 mg/dL 70-110 Above high normal [facility] ID Date Data Source [id number] 11/19/2019 01:55:00 AM EDT [facility] Name Value Range Interpretation Code Description Data Beryl rce(s) Supporting Document(s) Blood Culture-Venous [facility] ID Date Data Source [id number] 11/14/2019 01:30:00 AM EDT [facility] MB if CPK is elevated? Y MB if CPK is elevated? Y MB if CPK is elevated? Y Name Value Range Interpretation Code Description Data Beryl rce(s) Supporting Document(s) Sodium 130 mmol/L 137-145 Below low normal [facility] Potassium 3.5-5.1 Normal (applies to non-numeric resul ts) [facility] Chloride 99 mmol/L 98-112 Normal (applies to non-numeric resul ts) [facility] Carbon Dioxide CO2 22.0-33.0 Normal (applies to non-numer ic results) [facility] Anion Gap 4.0-11.0 Normal (applies to non-numeric resul ts) [facility] BUN 17 mg/dL 7-17 Normal (applies to non-numeric resul ts) [facility] Creatinine 0.70-1.20 Above high normal [facility] GFR 35 mL/min >60 Below low normal [facility] Result based on MDRD formula. Glucose Level 299 mg/dL 74-99 Above high normal [facility] The reference range is only applicable w hen fasting. Calcium-Uncorrected 8.4-10.2 Normal (applies to non-nume ronaldo results) [facility] Corrected Calcium 8.4-10.2 Above high normal [facility] Bilirubin,Total 0.2-1.3 Above high normal [facility] SGOT(AST) 31 U/L 14-36 Normal (applies to non-numeric resul ts) [facility] SGPT(ALT) 8 U/L 9-52 Below low normal [facility] Alkaline Phosphatase 203 U/L 38-126 Above high normal [facility] can increase Alkaline Phosp le vels up to 2 times the normal adult value. Normal values for children and adolescents are 2 to 3 times the normal adult value. Total Protein 6.3-8.2 Normal (applies to non-numeric re sults) [facility] Albumin 3.5-5.0 Below low normal [facility] ID Date Data Source [id number] 11/14/2019 01:30:00 AM EDT [facility] MB if CPK is elevated? Y MB if CPK is elevated? Y MB if CPK is elevated? Y Name Value Range Interpretation Code Description Data Beryl rce(s) Supporting Document(s) Bilirubin,Direct 0.0-0.3 Above high normal [facility] ID Date Data Source [id number] 11/14/2019 01:30:00 AM EDT [facility] MB if CPK is elevated? Y MB if CPK is elevated? Y MB if CPK is elevated? Y Name Value Range Interpretation Code Description Data Beryl rce(s) Supporting Document(s) CPK 90 U/L 26-192 Normal (applies to non-numeric resul ts) [facility] ID Date Data Source [id number] 11/14/2019 01:16:00 AM EDT [facility] Name Value Range Interpretation Code Description Data Beryl rce(s) Supporting Document(s) Troponin I 0.000-0.045 Normal (applies to non-numeric resu lts) [facility] ID Date Data Source [id number] 11/14/2019 12:52:00 AM EDT [facility] Name Value Range Interpretation Code Description Data Beryl rce(s) Supporting Document(s) White Blood Count 4.8-10.8 Normal (applies to non-numeri c results) [facility] Red Blood Count 3.68-5.22 Below low normal [facility] Hemoglobin 11.2-15.7 Below low normal [facility] Hematocrit 34.1-44.9 Below low normal [facility] Mean Corpuscular Volume 81-99 Normal (applies to non- numeric results) [facility] Mean Corpuscular Hemoglobin 27.0-33.0 Normal (appli es to non-numeric results) [facility] Mean Corpuscular HGB Conc 32.0-36.0 Normal (applies to no n-numeric results) [facility] Red Cell Distribution Width 11.5-14.5 Above high normal [facility] Platelet Count 171 X10 3/uL 130-450 Normal (applies to non-numeric results) [facility] Mean Platelet Volume 9.5-12.7 Normal (applies to non-num omer results) [facility] Imm Grans% (AUTO) 1 % 0-2 Normal (applies to non-numeri c results) [facility] Neutrophils % (AUTO) 86 % 40-75 Above high normal [facility] Lymphocytes % (AUTO) 3 % 21-46 Below low normal [facility] Monocytes % (AUTO) 10 % 5-12 Normal (applies to non-numer ic results) [facility] Eosinophils % (AUTO) 0 % 1-5 Below low normal [facility] Basophils % (AUTO) 0 % 0-1 Normal (applies to non-numer ic results) [facility] Imm Grans# (AUTO) 0.0-0.5 Normal (applies to non-numeri c results) [facility] Neutrophils # (AUTO) 1.5-8.1 Normal (applies to non-num omer results) [facility] Lymphocytes # (AUTO) 1.0-3.1 Below low normal [facility] Monocytes # (AUTO) 0.2-1.3 Normal (applies to non-numer ic results) [facility] Eosinophils# (AUTO) 0.0-0.5 Normal (applies to non-nume ronaldo results) [facility] Basophils # (AUTO) 0.0-0.1 Normal (applies to non-numer ic results) [facility] ID Date Data Source [id number] 11/13/2019 10:52:00 PM EDT [facility] First test? [facility]ed in [facility] re? NOSymptomatic per CDC? UNKNOWNIf yes date of onset? 11/13/19Hospitalized? NOICU? NOResident in congregated care? ex skilled nursing, [facility] NO? NO Name Value Range Interpretation Code Description Data Beryl rce(s) Supporting Document(s) SARS-CoV-2 RNA Negative Normal (applies to non-numeric r esults) [facility] Negative results should be treated as pr esumptive and, if inconsistent with clinical signs and symptoms or necessary for patient management, should be tested with different authorized or cleared molecular tests. Negative results do not preclude SARS-CoV-2 infection and should not be used as the sole basis for patient management decisions. Negative results should be considered in the context of a patient???s recent exposures, history and the presence of clinical signs and symptoms consistent with COVID-19. This test has not been FDA cleared or approved; this test has been authorized by FDA under an Emergency Use Authorization for use by laboratories certified under the Clinical Laboratory Improvement Amendments of 1988 (CLIA), 42 U.S.C. ???263a, to perform moderate complexity/high complexity tests and at the Point of Care (POC), i.e., in patient care settings operating under a CLIA Certificate of Waiver, Certificate of Compliance, or Certificate of Accreditation. Factsheets for healthcare providers: https://www.fda.gov/media/157826/download Factsheets for patients: https://www.fda.gov/media/050980/download THIS IS A STATE REPORTABLE COMMUNICABLE DISEASE. Manual entry verified by Shannon Grant 11/13/19 2251 ID Date Data Source [id number] 11/13/2019 09:49:00 PM EDT [facility] ADD ON Name Value Range Interpretation Code Description Data Beryl rce(s) Supporting Document(s) Troponin I 0.000-0.056 Normal (applies to non-numeric resu lts) [facility] ID Date Data Source [id number] 11/15/2019 08:49:00 AM EDT [facility] Procedure Performed By: [facility] [address] [place] [address] Director: Shruthi Arriaga MD Name Value Range Interpretation Code Description Data Beryl rce(s) Supporting Document(s) Urine Culture [facility] ID Date Data Source [id number] 11/15/2019 08:49:00 AM EDT [facility] Procedure Performed By: [facility] [address] [place] [address] Director: Shruthi Arriaga MD Name Value Range Interpretation Code Description Data Beryl rce(s) Supporting Document(s) Amoxicillin/Clavulanic Acid Susc eptible. Indicates for microbiology susceptibilities only. [facility] Cefazolin Susceptible. Indicates for microbiol ogy susceptibilities only. [facility] Cefepime Susceptible. Indicates for microbiol ogy susceptibilities only. [facility] Ceftriaxone Susceptible. Indicates for m icrobiology susceptibilities only. [facility] Ciprofloxacin Susceptible. Ind icates for microbiology susceptibilities only. [facility] Ertapenem Susceptible. Indicates for microbiol ogy susceptibilities only. [facility] Gentamicin Susceptible. Indicates for microbiol ogy susceptibilities only. [facility] Imipenem Susceptible. Indicates for microbiol ogy susceptibilities only. [facility] Meropenem Susceptible. Indicates for microbiol ogy susceptibilities only. [facility] Levofloxacin Susceptible. Indicates for m icrobiology susceptibilities only. [facility] Nitrofurantoin 64 Specimen in lab; results pending [facility] Pipercillin/Tazobactam Susceptib le. Indicates for microbiology susceptibilities only. [facility] Trimeth/Sulfamethoxazole Suscept ible. Indicates for microbiology susceptibilities only. [facility] ID Date Data Source [id number] 11/15/2019 07:32:00 AM EDT [place] [facility] Procedure Performed By: [facility] [address] [place] [address] Director: Shruthi Arriaga MD Procedure Performed By: [facility] [address] [place] [address] Director: Shruthi Arriaga MD QUANTITY: 20,000 - 30,000/mL {KLEBSIELLA PNEUMONIAE} KLEBSIELLA PNEUMONIAESCT Name Value Range Interpretation Code Description Data Beryl rce(s) Supporting Document(s) ID Date Data Source [id number] 11/15/2019 07:32:00 AM EDT [facility] Procedure Performed By: [facility] [address] [place] [address] Director: Shruthi Arriaga MD Procedure Performed By: [facility] [address] [place] [address] Director: Shruthi Arriaga MD QUANTITY: 20,000 - 30,000/mL {KLEBSIELLA PNEUMONIAE} KLEBSIELLA PNEUMONIAESCT Name Value Range Interpretation Code Description Data Beryl rce(s) Supporting Document(s) Amoxicillin/Clavulanic Acid Susc eptible. Indicates for microbiology susceptibilities only. [facility] Cefazolin Susceptible. Indicates for microbiol ogy susceptibilities only. [facility] Cefepime Susceptible. Indicates for microbiol ogy susceptibilities only. [facility] ESBL - [facility] Ceftriaxone Susceptible. Indicates for m icrobiology susceptibilities only. [facility] Ciprofloxacin Susceptible. Ind icates for microbiology susceptibilities only. [facility] Ertapenem Susceptible. Indicates for microbiol ogy susceptibilities only. [facility] Gentamicin Susceptible. Indicates for microbiol ogy susceptibilities only. [facility] Imipenem Susceptible. Indicates for microbiol ogy susceptibilities only. [facility] Meropenem Susceptible. Indicates for microbiol ogy susceptibilities only. [facility] Levofloxacin Susceptible. Indicates for m icrobiology susceptibilities only. [facility] Nitrofurantoin 64 Specimen in lab; results pending [facility] Pipercillin/Tazobactam Susceptib le. Indicates for microbiology susceptibilities only. [facility] Trimeth/Sulfamethoxazole Suscept ible. Indicates for microbiology susceptibilities only. [facility] ID Date Data Source [id number] 11/13/2019 07:59:00 PM EDT [facility] Name Value Range Interpretation Code Description Data Beryl rce(s) Supporting Document(s) PT 9.2-11.7 Above high normal [facility] ospital INR Normal (applies to non-numeric results) [facility] The use of INR is restricted to patients on stable oral anticoagulant. Therapeutic Range: 2.0 - 3.0 High Risk Range: 2.5 - 3.5 ID Date Data Source [id number] 11/13/2019 07:59:00 PM EDT [facility] Name Value Range Interpretation Code Description Data Beryl rce(s) Supporting Document(s) PTT 23.8-37.9 Normal (applies to non-numeric results) [facility] ID Date Data Source [id number] 11/13/2019 07:47:00 PM EDT [facility] Name Value Range Interpretation Code Description Data Beryl rce(s) Supporting Document(s) Sodium 133 mmol/L 136-145 Below low normal [facility]ital Potassium 3.5-5.1 Normal (applies to non-numeric resul ts) [facility] Chloride 96 mmol/L 98-107 Below low normal [facility] spital Carbon Dioxide CO2 21-32 Normal (applies to non-numer ic results) [facility] Anion Gap 5.0-16.0 Normal (applies to non-numeric resul ts) [facility] BUN 15 mg/dL 7-18 Normal (applies to non-numeric results) [facility] Creatinine,Serum 0.7-1.2 Above high normal [facility] GFR 38 mL/min >60 Below low normal [facility] spital Glucose Level 267 mg/dL 60-99 Above high normal [facility] Reference range is only applicable when patient is fasting Note the following drug interference: Sulfasalazine Sulfapyridine Can see falsely depressed Can see falsely elevated result with up to 17% results with up to 11% decrease in measurement increase in measurement Recommend patients be collected for this test prior to administration of either drug. Calcium 8.5-10.1 Normal (applies to non-numeric resul ts) [facility] Bilirubin,Total 0.1-1.9 Normal (applies to non-numeric results) [facility] SGOT(AST) 31 U/L 15-37 Normal (applies to non-numeric resul ts) [facility] Note the following drug interference: Sulfasalazine Sulfapyridine Can see falsely depressed Can see falsely elevated result with up to 10% results with up to 10% decrease in measurement increase in measurement Recommend patients be collected for this test prior to administration of either drug. SGPT(ALT) 13 U/L 12-78 Normal (applies to non-numeric resul ts) [facility] Note the following drug interference: Sulfasalazine Sulfapyridine Can see falsely depressed Can see falsely elevated result with up to 29% results with up to 10% decrease in measurement increase in measurement Recommend patients be collected for this test prior to administration of either drug. Alkaline Phosphatase 201 U/L 38-126 Above high normal [facility] can increase Alkaline Phosp le vels up to 2 times the normal adult value. Normal values for children and adolescents are 2 to 3 times the normal adult value. Total Protein 6.0-8.2 Normal (applies to non-numeric re sults) [facility] Albumin Level 3.4-5.0 Below low normal [facility] ID Date Data Source [id number] 11/13/2019 07:45:00 PM EDT [facility] Name Value Range Interpretation Code Description Data Beryl rce(s) Supporting Document(s) White Blood Count 3.5-10.5 Normal (applies to non-numeri c results) [facility] Red Blood Count 3.90-5.00 Below low normal [facility] Hemoglobin 12.0-15.5 Below low normal [facility] Hematocrit 34.9-44.5 Below low normal [facility] Mean Corpuscular Volume 81.2-95.1 Normal (applies to non- numeric results) [facility] Mean Corpuscular Hgb 25.6-32.2 Normal (applies to non-num omer results) [facility] Mean Corpuscular Hgb Conc 32.0-36.0 Below low normal [facility] Red Cell Distribution Width 11.9-15.5 Above high normal [facility] Platelet Count 192 x10 3/uL 150-450 Normal (applies to non-numeric results) [facility] Mean Platelet Volume 9.4-12.4 Normal (applies to non-num omer results) [facility] Neutrophils% (Auto) 31.0-71.0 Above high normal [facility] Lymphocytes% (Auto) 20.0-55.0 Below low normal [facility] Monocytes% (Auto) 4.0-12.0 Normal (applies to non-numeri c results) [facility] Eosinophils% (Auto) 1.0-8.0 Below low normal [facility] Basophils% (Auto) 0.0-2.0 Normal (applies to non-numeri c results) [facility] Immature Granulocytes% (Auto) 0.0-2.0 Normal (juan lies to non-numeric results) [facility] Neutrophils# (Auto) 1.50-6.20 Above high normal [facility] Lymphocytes# (Auto) 1.20-4.00 Below low normal [facility] Monocytes# (Auto) 0.00-0.90 Normal (applies to non-numeri c results) [facility] Eosinophils# (Auto) 0.00-0.50 Normal (applies to non-nume ronaldo results) [facility] Basophils# (Auto) 0.00-0.20 Normal (applies to non-numeri c results) [facility] Immature Granulocytes# (Auto) 0.00-7.00 No rmal (applies to non-numeric results) [facility] Slide Reviewed By Normal (applies to non-numeri c results) [facility] Slide has been reviewed and findings con firmed by a technologist/nurse technician. ID Date Data Source [id number] 11/14/2019 12:27:00 PM EDT [facility] Imaging Services Department Imaging Report [address], [place] [address] %(RAD)RES..mtdd.print.filter("line") Name: LINDSAY BLAIR : 1935 Age/Sex: 84F Ordering Provider: ALEXIS Montoya Med Rec #: [id number] Reg Status: [facility] ER Room #: Date of Service: 11/13/19 Report Number: [id number] cc:Sudhakar Chambers MD Send Report To: [id number] CT/CT Maxillo- Facial No Contrast Reason for exam: fall, left facial bruising and swelling FINDINGS/IMPRESSION: There appears to be a comminuted nondisplaced fracture of the nasal bones. Mild left periorbital swelling is noted. The paranasal sinuses and mastoid air cells are clear. No other acute osseous abnormality of the facial bones is noted. While performing the above CT exam, the following dose reduction techniques wereused: *Automated exposure control *Adjustment of the mA and/or kV according to patient size *Use of iterative reconstruction technique CT Dose in mGy: Contrast Agent: Amount in ml: Method of Administration: REPORT SIGNATURE ON FILE Reported By: Jeronimo Choi MD <Electronically signed by Jeronimo Choi MD> 11/15/19 1219 Dictation Date/Time: 11/13/192022 Transcribed Date/Time: 11/14/19 122 [employer] Consultant: DANIA Name Value Range Interpretation Code Description Data Beryl rce(s) Supporting Document(s) ID Date Data Source [id number] 11/14/2019 12:01:00 PM EDT [facility] Imaging Services Department Imaging Report [address], [place] [address] %(RAD)RES..mtdd.print.filter("line") Name: LINDSAY BLAIR : 1935 Age/Sex: 84F Ordering Provider: ALEXIS Montoya Med Rec #: [id number] Reg Status: [facility] ER Room #: Date of Service: 11/13/19 Report Number: [id number] cc:Sudhakar Chambers MD Send Report To: [id number] XRP/XR Leg Tibia and Fibula Rt Reason for exam: prox pain, s/p fall FINDINGS/IMPRESSION: There is a comminuted, nondisplaced fracture of the proximal tibial shaft. Degenerative changes are noted in the visualized knee. Time portable per formed: Fluoroscopy time in seconds: Number of Exposures: Contrast Agent in ml: Method of Administration: REPORT SIGNATURE ON FILE Reported By: Jeronimo Choi MD <Electronically signed by Jeronimo Choi MD> 11/15/19 1219 Dictation Date/Time: 11/13/19 0652 Transcribed Date/Time: 11/14/19 1201 [employer] Consultant: DANIA Name Value Range Interpretation Code Description Data Beryl rce(s) Supporting Document(s) ID Date Data Source [id number] 11/14/2019 12:33:00 PM EDT [facility] Imaging Services Department Imaging Report [address] [place] [address] %(RAD)RES..mtdd.print.filter("line") Name: LINDSAY BLAIR : 1935 Age/Sex: 84F Ordering Provider: ALEXIS Montoya Med Rec #: [id number] Reg Status: [facility] ER Room #: Date of Service: 11/13/19 Report Number: [id number] cc:Sudhakar Chambers MD Send Report To: [id number] CT/CT Abdomen & Pelvis No Contras Reason for exam: diffuse pain, s/p fall FINDINGS: The liver is cirrhotic. There is a small to moderate ascites. Thereis normal noncontrast CT appearance of the spleen, pancreas, and adrenal glands. 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 The patient appears to be status post cholecystectomy. There is evidence of portal hypertension with recanalization of the umbilical vein. The visualized bowel is normal in caliber. No bowel wall thickening. The appendix is not definitively visualized. The bladder and pelvic organs appear normal. No acute osseous abnormality. No lymphadenopathy. IMPRESSION: Small to moderate ascites with severe cirrhotic changes of the liver and evidence of portal hypertension. While performing the above CT exam, the following dose reduction techniques wereused: *Automated exposure control *Adjustment of the mA and/or kV according to patient size *Use of iterative reconstruction technique CT Dose in mGy: Contrast Agent: Amount in ml: Method of Administration: REPORT SIGNATURE ON FILE Reported By: Jeronimo Choi MD <Electronically signed by Jeronimo Choi MD> 11/15/19 1219 Dictation Date/Time: 11/13/192022 Transcribed Date/Time: 11/14/19 1233 [employer] Consultant: DANIA Name Value Range Interpretation Code Description Data Beryl rce(s) Supporting Document(s) ID Date Data Source [id number] 11/14/2019 12:30:00 PM EDT [facility] Imaging Services Department Imaging Report [address] [place] [address] %(RAD)RES..mtdd.print.filter("line") Name: LINDSAY BLAIR : 1935 Age/Sex: 84F Ordering Provider: ALEXIS Montoya Med Rec #: [id number] Reg Status: [facility] Room #: Date of Service: 11/13/19 Report Number: [id number] cc:Sudhakar Chambers MD Send Report To: [id number] CT/CT Chest No Contrast Reason for exam: sob, s/p fall FINDINGS: The neck base demonstrates a left-sided cardiac conduction device. There is marked loss of volume in the right hemithorax. I suspect this is due to marked atelectasis of the right lower lobe. There is a small to moderate loculated right pleural effusion. The left lung is clear. The heart is normal in size. No lymphadenopathy. No acute osseous abnormality. IMPRESSION: Small to moderate loculated pleural effusion on the right. Marked volume loss of the right hemithorax mainly due to atelectatic changes of the right lower lobe. While performing the above CT exam, the following dose reduction techniques wereused: *Automated exposure control *Adjustment of the mA and/or kV according to patient size *Use of iterative reconstruction technique CT Dose in mGy: Contrast Agent: Amount in ml: Method of Administration: REPORT SIGNATURE ON FILE Reported By: Jeronimo Choi MD <Electronically signed by Jeronimo Choi MD> 11/15/19 1219 Dictation Date/Time: 11/13/192022 Transcribed Date/Time: 11/14/19 1230 [employer] Consultant: DANIA Name Value Range Interpretation Code Description Data Beryl rce(s) Supporting Document(s) ID Date Data Source [id number] 11/14/2019 12:24:00 PM EDT [facility] Imaging Services Department Imaging Report [address], [place] [address] %(RAD)RES..mtdd.print.filter("line") Name: LINDSAY BLAIR : 1935 Age/Sex: 84F Ordering Provider: ALEXIS Montoya Med Rec #: [id number] Reg Status: [facility] ER Room #: Date of Service: 11/13/19 Report Number: [id number] cc:Sudhakar Chambers MD Send Report To: [id number] CT/CT Head No Contrast Reason for exam: fall FINDINGS: The cortical sulci and ventricles are globally and proportionately prominent. No acute hemorrhage, infarct, mass effect, or midline shift. The paranasal sinuses and mastoid air cells are clear. There is no acute osseous abnormality. The visualized orbits are normal. IMPRESSION: No acute intracranial abnormality. Moderate age related atrophy and chronic small vessel ischemic changes. While performing the above CT exam, the following dose reduction techniques wereused: *Automated exposure control *Adjustment of the mA and/or kV according to patient size *Use of iterative reconstruction technique CT Dose in mGy: Contrast Agent: Amount in ml: Method of Administration: REPORT SIGNA TURE ON FILE Reported By: Jeronimo Choi MD <Electronically signed by Jeronimo Choi MD> 11/15/19 1219 Dictation Date/Time: 11/13/192044 Transcribed Date/Time: 11/14/19 1224 [employer] Consultant: DANIA Name Value Range Interpretation Code Description Data Beryl rce(s) Supporting Document(s) ID Date Data Source [id number] 11/18/2019 01:23:00 PM EDT [facility] Imaging Services Department Imaging Report [address], [place] [address] %(RAD)RES..mtdd.print.filter("line") Name: LINDSAY BLAIR : 1935 Age/Sex: 84F Ordering Provider: ALEXIS Montoya Med Rec #: [id number] Reg Status: [facility] Room #: Date of Service: 11/13/19 Report Number: [id number] cc:Sudhakar Chambers MD Send Report To: [id number] CT/CT Cervical Spine No Contrast Reason for exam: fall FINDINGS: Some moderate arthritic changes in the disc spaces and posterior articulations with no intrinsic bony lesions or fractures. Some right apical pleural parenchymal thickening noted. No signs of any intrinsic bony lesions or fractures otherwise noted. IMPRESSION: Some arthritic changes with no other significant findings identified. While performing the above CT exam, the following dose reduction techniques wereused: *Automated exposure control *Adjustment of the mA and/or kV according to patient size *Use of iterative reconstruction technique CT Dose in mGy: Contrast Agent: Amount in ml: Method of Administration: REPORT SIGNATURE ON FILE Reported By: Cecile Montalvo MD <Electr onically signed by Nini Montalvo MD> 11/18/19 1541 Dictation Date/Time: 11/18/19 1114 Transcribed Date/Time: 11/18/19 1323 [employer] Consultant: RAFFI Name Value Range Interpretation Code Description Data Beryl rce(s) Supporting Document(s) ID Date Data Source [id number] 11/14/2019 12:02:00 PM EDT [facility] Imaging Services Department Imaging Report [address], [place] [address] %(RAD)RES..mtdd.print.filter("line") Name: LINDSAY BLAIR : 1935 Age/Sex: 84F Ordering Provider: ALEXIS Montoya Med Rec #: [id number] Reg Status: [facility] Room #: Date of Service: 11/13/19 Report Number: [id number] cc:Sudhakar Chambers MD Send Report To: [id number] XRP/XR Chest Xray Portable Reason for exam: sob s/p fall FINDINGS: There is a moderate right pleural effusion. The left lung is moderately expanded. The cardiac silhouette is partially obscured. There is a left-sided cardiac conduction device. No acute osseous abnormality. IMPRESSION: Moderate right effusion and associated atelectasis. Time portable performed: 1800 Fluoroscopy time in seconds: Number of Exposures: Contrast Agent in ml: Method of Administration: REPORT SIGNATURE ON FILE Reported By: Jeronimo Choi MD <Electronically signed by Jeronimo Choi MD> 11/15/19 1219 Dictation Date/Time: 11/13/192022 Transcribed Date/Time: 11/14/19 120 [employer] Consultant: DANIA Name Value Range Interpretation Code Description Data Beryl rce(s) Supporting Document(s) ID Date Data Source [id number] 10/30/2019 08:20:08 AM EDT [facility] Name Value Range Interpretation Code Description Data Beryl rce(s) Supporting Document(s) &PDF [facility] DPMVVn7bVbOBAkLq64/BFZdcXYFvr6YrEIprGBb1JIobNQHpC4LarAwqUEbPQ55UCzzEAJAxPoAgYCwl pYy [file] o7VHWmZhVpYsmLFHCJjgykrp5IeE/MV9U5AI/mjEAKUQf0fbwrrZhIUGgwrg1vwNjaBW4O6zknelu/GATES UxFLJ+ARMxKlarh0MPLU4Aii11Lg2dGir4xU7KoFRXwvsmqnAvqe+es0V90cdTI9dof127eJ5FRSyHD4 OBWctOIQrjIE0481SYYMTNNXiHIVpgGFNbCTA2IrbB X8ZCgUtbHt4b1SM7JU9HDat2HN4+e2dVhtLg+F2viXX2kX+T8kkPvatJQtKXUBWjH8tj3VEeBiaDONZA uuhWvmQFKwFdWdppJCQUZH9FQRzbXsirXbwL1wOhFZgdNkokbn0eFRhj5/wGM6Kk5jijnrkqYwVxXTv2 nzn3bkKQi+IXgd6u3D2sYuC4MVzWsEJTk1y4vF+LJL sN6+sBcOmDwyYJvqsninFrJOYWYpxkGizrGeSGJYJ49ZaEzbG+eKi1ZjlYvzEGTjvvg7d9uwVdgM1d16 QTb581TOpb6GvmFXltAX171vGkUCvJ7F8F42C14/JitpI7d/iRGMfLu0ZudwvqJ+4TOZaz31S9r7YIyS QRJQCzbt+5NhsaPwxtESG25Pg9K3AP5gZJhENbDn2h w4bKm5lFAslp6+W+Ax71NrmWxXlE5Xuldp+cVKUvIdJfXwC0VJiULQBnKDo3qDN6fPj02kRZ68FpxUVf 5uQyZtCZBVJpHH1mPkr6FrDVGot7DUVEwX3NzPyBc9pn1mNS8AdhNpGS+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 RA lead high thresholds. Not pacer dependentNO CP or SOBPast Medical History:Past Medical History:Diagnosis Date Asthma Cirrhosis of liver DM (diabetes mellitus) GERD (gastroesophageal reflux disease) Heart murmur Hypertension PacemakerPast Surgical History:Past Surgical History:Procedure Laterality Date APPENDECTOMY CHOLECYSTECTOMY HYSTERECTOMY TONSILLECTOMY AND ADENOIDECTOMYMedications:Medications Prior to AdmissionMe dication Sig Dispense Refill Last Dose albuterol (PROVENTIL) (2.5 MG/3ML) 0.083% nebulizer solution ALBUTEROL SULFATENEBU furosemide (LASIX) 20 MG tablet FUROSEMIDE 20 MG TABS glipiZIDE (GLUCOTROL) 5 MG tablet GLIPIZIDE 5 MG TABS insulin glargine (LANTUS) 100 UNIT/ML injection LANTUS 100 UNIT/ML SOLN Lactulose Encephalopathy 10 GM/15ML SOLN nitroglycerin (NITROSTAT) 0.4 MG SL tablet NITROSTAT 0.4 MG SUBL Omeprazole 20 MG TBEC OMEPRAZOLE 20 MG TBEC spironolactone (ALDACTONE) 50 MG tablet SPIRONOLACTONE 50 MG TABSAllergies:Demerol [meperidine hcl]Family History:No family history on file.Social History:Social HistoryTobacco Use Smoking status: Former Smoker Types: Cigarettes Smokeless tobacco: Former UserSubstance Use Topics Alcohol use: Not Currently Drug use: NeverReview of Systems:Pertinent positives as mentioned in the HPI. Denies recent fever, chills, orchange in appetite. Denies unilateral weakness, numbness, slurred speech, orfacial droop. Denies any hematemesis, hematochezia, or melena. Denies nausea,vomiting, diarrhea, or abdominal pain. All other systems were reviewed and theremainder are negative.Physical Exam:Vital Signs: Temp: [97.9 F] 97.9 FHeart Rate: [73] 73Resp: [22] 22BP: (149)/(92) 149/92A 9 body area/organ physical examination was performed.General: ederly fragile patient in NAD.HEENT: NC/AT, sclerae anicteric, moist mucous membranes.Neck: Supple. No thyromegaly was appreciated.Lungs: CTAB, without rales, rhonchi, or wheezes.CV: Regular rate & rhythm, no murmurs, rubs, or gallops. Normal S1/S2. The JVPis <8 cm while sitting upright.Abd: Soft, NT, ND.Extremities: No pitting edema, cyanosis or clubbing.Skin: Warm & dry, without jaundice or bruising.Psych: A&O x3, affect appropriate.Assessment:Principal Problem: Encounter for pacemaker at end of battery lifeNormal LV functionSJM dual PPM ERIHigh RA lead threshold but ok bipolarPlan:1. SJm dual PPM gen changeProcedure was discussed with patient / risks, benefits, and alternativesexplained. Potential risks include but not limited to pain, bleeding, infection,injury to any body system or organ between the skin and heart (including theskin, subcutaneous tissue, blood vessels, abdominal organs, heart, and lungs),possible need for a heart surgery , heart attack, stroke, or even .Signature: Bharath Escobar, MDDate: October 30, 2019Time: 6:46 AM Name Value Range Interpretation Code Description Data Beryl rce(s) Supporting Document(s) ID Date Data Source [id number] 10/30/2019 10:21:20 AM EDT [facility] Name Value Range Interpretation Code Description Data Beryl rce(s) Supporting Document(s) POC NOVA GLU 170 mg/dL (70-99) H [facility] [place] PERFORMED BY [facility] ID Date Data Source [id number] 10/25/2019 09:05:00 AM EDT [facility] Name Value Range Interpretation Code Description Data Beryl rce(s) Supporting Document(s) SARS coronavirus 2 RNA [facility]. ID Date Data Source [id number] 10/27/2019 06:54:00 AM EDT [facility] Name Value Range Interpretation Code Description Data Beryl rce(s) Supporting Document(s) SARS-CoV-2, GET Not Detected Not Detected [facility] Testing was performed using the Aptima S ARS-CoV-2 assay.This test was developed and its performance characteristics determinedby [employer] This test has not been FDA cleared orapproved. This test has been authorized by FDA under an Emergency UseAuthorization (EUA). This test is only authorized for the duration oftime the declaration that circumstances exist justifying theauthorization of the emergency use of in vitro diagnostic tests fordetection of SARS-CoV-2 virus and/or diagnosis of COVID-19 infectionunder section 564(b)(1) of the Act, 21 U.S.C. 360bbb-3(b)(1), unlessthe authorization is terminated or revoked sooner.When diagnostic testing is negative, the possibility of a falsenegative result should be considered in the context of a patient'srecent exposures and the presence of clinical signs and symptomsconsistent with COVID-19. An individual without symptoms of COVID-19and who is not shedding SARS-CoV-2 virus would expect to have anegative (not detected) result in this assay. ID Date Data Source [id number] 10/23/2019 01:12:56 PM EDT [facility] Name Value Range Interpretation Code Description Data Beryl rce(s) Supporting Document(s) &PDF [facility] EDTILh3iSpQDJvMy28/ZFUnmITOhz1JkSQksKTy6RLtfAIFrL8ZcuSzxOWwIM27URarXSIAwFwCkVYnr waW ZoW2byhMGtsjYYx9Cla0ZbhEkjgtsQFoChRq8RZhNnXW6jmj9XIBVcXS1pok6JPRS9LS8YeLc8YCSiP0 WqQKCgIUCyo9VsLQ5XZC1jbWgaIuDiJY9+MBzkWFA7tpVqjA0GWJIzDPhdE1xIsr/Q/9LrM81BhL8yxs 31G5I7RFMAlm3fYm3ic0m6ah12OGoBl/H++p3WbnPc 8G81MvMk4TEHgYbtkbl902+cGSnV/e/fajtLoihSzX+WK1IwTlpi7pm/xDbpZn7Dg/tTTFr+u+bVTrFp jDxWin6UE399ePbIWOndgZkM/EPfk6PJz/2n0V/yf2kjeoHaKpkOGploL5tNtTzokqcBnIrVYYn+QZ38 W7fdzNbDk280epOXO8s2e225ebgeiHXCnIsq3IYH7V GS/+kTwXnDz2jieu2nGMjF5EPVKm6qcsPgQMbNR0EtG1lDEAM9RdidPN6gKgpXd+7FJHgLwtBtV5FOzH Xj1kIEP5OTbh5OY1kTrvW1sd4OfGs3cq8H4rlgmQp4/nl1qJ4/Tgu2clZ37XKZ0eXy/Y97R2/33ocUmN fmUxwg8P8mzS4h3sc/dEGpqGnxXeh5YKjpUPAgkvZR pBkupDz9v4I8GG9nJmDHdXdamNELebXXlcgBPFGKtrdfPYIkh9nzS06NAdHZgOZAMxc3ydiiq597L0IF GbLuYAfiDDRNmJuZDbSlG6A2lNU9ZvL76UcukDpcagwrJCxFRP4BYpiG/Q8t6PoDZy+7HwTm37GlyCxN LuR96huPhdvyF2xo/vyPwUAizO5RSA7CQ7RtooZ9xv GTH7sOQVjkZBt8GwvpjPXjvoNc1b9+1QDvoAIyY+tKjY2456JVUirc1RVcfVdrDlGH/KDrKLw34SaiON DkfnYK2Zti60GfysAUqoso1Mz3wQ/VD42JTxv0c2SoQ3Gy1Gr0MTQKM++xn5B5Zarte5Lmv4aNzotLEM EYbzehkoh/as4npWwdleWsbfBeJZXrkVhyzvlnK3Vk [file] LdSJAwOhL2DEA7DM0oJZRWEt3+ORnppGLslWtsUDBUSmP2KZP4YEqyYCDRAl1O ID Date Data Source [id number] 10/19/2019 03:57:32 PM EDT [facility] Name Value Range Interpretation Code Description Data Beryl rce(s) Supporting Document(s) &PDF [facility] LKLLYj6mAiBIEhSx96/BWEvwKLEug5OvDCqvXZi2FWhrQSDmE1NipRdpXBwCW76MXafBMPKiXgQgXQcn waW [file] ICAgICAgICAgICAgICAgICAgICAgICAgICAgICAgIC AgICAgICAgICAgICAgICAgICAgICAgICAgICAgICAgICAgICAgICAgICAgICAgICAgICAgICAgICAgIA 0KICAgICAgICAgICAgICAgICAgICAgICAgICAgICAgICAgICAgICAgICAgICAgICAgICAgICAgICAgIC AgICAgICAgICAgICAgICAgICAgICAgICAgICAgICAg ZKTsKRLbXDKnTC2LJZLvTXTnRTOrITNnQQHeVKQtIGDoIQTxINKvUEZjVAOsPUElFBBxVTWlGZMqBNXp ZNBlXMHmPDStVUQhBGJcJOGsAPBqRJPhYHEvCUWjIEZhRYBrZGArLCEwDYBtUXPsRFNvBZ5RIMIpFZGd ICAgICAgICAgICAgICAgICAgICAgICAgICAgICAgIC AgICAgICAgICAgICAgICAgICAgICAgICAgICAgICAgICAgICAgICAgICAgICAgICAgICAgICAgICAgIC NzSC0XRGWuIFPlEOCzYWKrJLErTMZrFPWfQHCwXWXbEWBpCABkLABjZZGvAGSyHYDuHKEbZAKmRGPvVE AgICAgICAgICAgICAgICAgICAgICAgICAgICAgICAg MPNbYUCxWRDgUEZtNL4DXNEuHMDtARAmYUEdFBZmWLAaYFCjPYYkCESqEFQhMWCmHKRgJFFgSOJyTILh CWBpVMIoLTIlDVQeVUZvSJEmSZIjBRCxUAEyABEbJKQyDDCeRHLuBNRnYSJbYVIqTEEvUQYsTN0VHNZx ICAgICAgICAgICAgICAgICAgICAgICAgICAgICAgIC AgICAgICAgICAgICAgICAgICAgICAgICAgICAgICAgICAgICAgICAgICAgICAgICAgICAgICAgICAgIC MhAZLfDU5PFOOvSTViKRViYFUqGWBfCIZoMTUfTAAlOYNyWNMxPFUzZHXbRVCeNEMgUZCwGTEtPUOsMW AgICAgICAgICAgICAgICAgICAgICAgICAgICAgICAg EJLkLYXyYPOiMYViBHSoVL9ONQUnMVWvQWEfSSWxZOViQDDqYFZkOHRhXWEdOOTyIKTlDOSeOANeJZGr MGWvYCEeBWPlVVEdYMNvMGOkCUUoXXQkZXZzLPKsUIYgSNPsZASzIBIhBKOpNIUlIAPfDNDpZBBgKC7P ZR91vNZoz5Y1EZWaBZ6bdzj/Fo8EOSjiugUjhEHqIT 2GVlSfAI3lku9HFvKxBK9ggn6DJFlSZxKbI7I2bKUsPVUxLEJNVoMmJ26gPQhfQa85OLoxGNCiQtPxOT p2Tb5LIbRmZ4gvWDQqHxR7NOQpLrJ0GEIvQzX9EIPtZyCrBByfNK1Yz7KkpIZwUSh+Sm6TMH4pq0LeKX mnHUZrOF1ldu2QHCkYCzHvB7I0gRVaX9Y8IGvqCw5X JPKhAPFfYpRfJIHBZJmeKQ8EAB1rzbS4BJ0WhJIvKWYsUWKgyXSdEBx0W63cdSAeFCddKF5SVQC+Elida+ Ht5OBOVrMKBsWPVmPsTrEYVGAfLlM79fgIFyZWJsIUH1ADKnHp7CIBLsD2HcfqEiaHzpfrFpSOOuKEQX EU8CZWdtpfXvqAUhxFpvMG83wHeyZN9GOj6ICoCoHF 3nei6NuYDaUk4KWGNkTc8WQZAgJULlFTEkWCE4SHPyYlUjVNkjCZFiTNNlENH7CPTnNDEqPT2OAdNpAV TjARm9SXheDINzOPPuts4RKAQzOTO1ULx1AIRpWMWaTERoLOtmZBAqENYcFEd5NJPcWEXtIS8EPcRfIQ DdGGNlVPUpCROvQRUift5OPDKvUHGwRhY4KADoVIVy WOYuFAkeUEAzUJV1VQq6OHKsFCNsGI4TFmQpVJQdROWvTVVuMECmUWIceq3ARSDhTNMnOgBhWWZbXHBy FDQaLMbuRLRgWFG0GbC0TZPjZNSoYV3GKoWlZMWjEDpoFvSqRFQiKKZikj1LQEIvPWTwQZK9VOXfUHFw OSTdBRvhTGDoZKH7RFK2NSImIAPyET9GRyLoCZYkEL p9OJDxNHNnQABmke6JCIUnYCCbVLdmMCYeQLEuMZPgZPtmGXRyQYI9GFpnLGQtKCAzHK8ZLlFdIOOaPI N6XJvzRIHeALVljr5DAPZjQLFvOMV3NxBiIKXbKEVkZFewCKYwWGJ8Aym7SCIsFNJnVE7WWpOtJMVtZB B0VPwpSQBgORXyit2FIGAuKHJrGBQ6TSXuDWDnPKXz LPytFKEmQSV7VyF5NWLdKBArTU4GLaJuQKEkZYD1YHLjZTJiZHIfja1MEFLmDHQzVgb5CMCaLUZoIVYk PBazLERaYKHlSlM4VUOnNXIoST5WYtAlEPUlWcG5FqzcOYJoFMGloa1TNDAzZOGwFVz1FKWaWPAfAZAa XYmaGXZwHAPbWOYsXEFnVGOgJI5CRpIhTCYsDGW0Bj tvYMVtQNPozf4UGWFvJYL0CmhyAAAxFSUwAXIgHOtaBSWhSHx1KCA7VQIpMPNqHR0YKyXeVMFpBHX2Bi ooGMSqYHNzku9APHAgTYR6WldxZzHoLUFsKXUcJXgeNBPqVGg9RKF5JLItTJEqJI1DVeJcVQHfQMm0VQ zlVOUmBCKbkj8HrJYenFspwa8PYBzEDm3PuVllKSG2 KBhtRf1axTHaUVHpWMAKXx2HwrNiMIUbFNSYSCucXYXtLNX1CZmxYFP7IzItYSyoK2G1ZrOxJMI4PMRs XXB5GYL2RaJ6BfP9IXE0IkemWSV4PUD7SRHvGRWvCfhpIPS0JgQ2FeE+NU6uNTh+Rs6Vx5ExlqV0cpOi LVbaJKCqIJNMUrRdSZ1MZLk= ID Date Data Source [id number] 09/13/2019 05:11:00 PM EDT [facility] Name Value Range Interpretation Code Description Data [facility](s) Supporting Document(s) White Blood Count 3.5-10.5 Normal (applies to non-numeri c results) [facility] Red Blood Count 3.90-5.00 Below low normal [facility] Hemoglobin 12.0-15.5 Below low normal [facility]spital Hematocrit 34.9-44.5 Below low normal [facility] Mean Corpuscular Volume 81.2-95.1 Above high normal [facility] Mean Corpuscular Hgb 25.6-32.2 Normal (applies to non-num omer results) [facility] Mean Corpuscular Hgb Conc 32.0-36.0 Below low normal [facility] Red Cell Distribution Width 11.9-15.5 Above high normal [facility] Platelet Count 196 x10 3/uL 150-450 Normal (applies to non-numeric results) [facility] Mean Platelet Volume 9.4-12.4 Normal (applies to non-num omer results) [facility] Neutrophils% (Auto) 31.0-71.0 Above high normal [facility] Lymphocytes% (Auto) 20.0-55.0 Below low normal [facility] Monocytes% (Auto) 4.0-12.0 Above high normal [facility] Eosinophils% (Auto) 1.0-8.0 Normal (applies to non-nume ronaldo results) [facility] Basophils% (Auto) 0.0-2.0 Normal (applies to non-numeri c results) [facility] Immature Granulocytes% (Auto) 0.0-2.0 Normal (juan lies to non-numeric results) [facility] Neutrophils# (Auto) 1.50-6.20 Normal (applies to non-nume ronaldo results) [facility] Lymphocytes# (Auto) 1.20-4.00 Below low normal [facility] Monocytes# (Auto) 0.00-0.90 Normal (applies to non-numeri c results) [facility] Eosinophils# (Auto) 0.00-0.50 Normal (applies to non-nume ronaldo results) [facility] Basophils# (Auto) 0.00-0.20 Normal (applies to non-numeri c results) [facility] Immature Granulocytes# (Auto) 0.00-7.00 No rmal (applies to non-numeric results) [facility] Slide Reviewed By Normal (applies to non-numeri c results) [facility] Slide has been reviewed and findings con firmed by a technologist/nurse technician. ID Date Data Source [id number] 09/13/2019 04:51:00 PM EDT [facility] Name Value Range Interpretation Code Description Data Beryl rce(s) Supporting Document(s) Hemoglobin A1c 4.4-6.2 Normal (applies to non-numeric r esults) [facility] Estimated Avg Glucose 131 mg/dL 126-240 Normal (applies to non-numeric results) [facility] ID Date Data Source [id number] 09/13/2019 04:47:00 PM EDT [facility] Name Value Range Interpretation Code Description Data Beryl rce(s) Supporting Document(s) Sodium 137 mmol/L 136-145 Normal (applies to non-numeric resul ts) [facility] Potassium 3.5-5.1 Normal (applies to non-numeric resul ts) [facility] Chloride 101 mmol/L 98-107 Normal (applies to non-numeric resul ts) [facility] Carbon Dioxide CO2 21-32 Normal (applies to non-numer ic results) [facility] Anion Gap 5.0-16.0 Normal (applies to non-numeric resul ts) [facility] BUN 13 mg/dL 7-18 Normal (applies to non-numeric results) [facility] Creatinine,Serum 0.7-1.2 Normal (applies to non-numeric results) [facility] GFR 56 mL/min >60 Below low normal [facility] spital Glucose Level 123 mg/dL 60-99 Above high normal [facility] Reference range is only applicable when patient is fasting Note the following drug interference: Sulfasalazine Sulfapyridine Can see falsely depressed Can see falsely elevated result with up to 17% results with up to 11% decrease in measurement increase in measurement Recommend patients be collected for this test prior to administration of either drug. Calcium 8.5-10.1 Normal (applies to non-numeric resul ts) [facility] Bilirubin,Total 0.1-1.9 Normal (applies to non-numeric results) [facility] SGOT(AST) 28 U/L 15-37 Normal (applies to non-numeric resul ts) [facility] Note the following drug interference: Sulfasalazine Sulfapyridine Can see falsely depressed Can see falsely elevated result with up to 10% results with up to 10% decrease in measurement increase in measurement Recommend patients be collected for this test prior to administration of either drug. SGPT(ALT) 9 U/L 12-78 Below low normal [facility] Note the following drug interference: Sulfasalazine Sulfapyridine Can see falsely depressed Can see falsely elevated result with up to 29% results with up to 10% decrease in measurement increase in measurement Recommend patients be collected for this test prior to administration of either drug. Alkaline Phosphatase 189 U/L 38-126 Above high normal [facility] can increase Alkaline Phosp le vels up to 2 times the normal adult value. Normal values for children and adolescents are 2 to 3 times the normal adult value. Total Protein 6.0-8.2 Normal (applies to non-numeric re sults) [facility] Albumin Level 3.4-5.0 Below low normal [facility] ID Date Data Source [id number] 09/13/2019 04:47:00 PM EDT [facility] Name Value Range Interpretation Code Description Data Beryl rce(s) Supporting Document(s) Triglycerides 53 mg/dL <150 Normal (applies to non-numeric re sults) [facility] Cholesterol 94 mg/dL 100-200 Below low normal [facility] LDL Cholesterol Calculated 26 0-130 Normal (applies to n on-numeric results) [facility] HDL Cholesterol 57 mg/dL 40-60 Normal (applies to non-numeric results) [facility] Cholesterol/HDL Ratio 3.6-6.7 Below low normal [facility] ID Date Data Source [id number] 07/11/2019 03:49:36 PM EDT [facility] Name Value Range Interpretation Code Description Data Beryl rce(s) Supporting Document(s) &PDF [facility] VBWNHv5nAuXXDpGg52/QUPuxPYIga7QkOWauUGc0MOitBMQiG5PgcUpfTQfDG54VUscDWPSpBrPpLNWx waW [file] AgICAgICAgICAgICAgICAgICAgICAgICAgICAgICAg USMbJJFqZVEeZVLoEZYuNLXsVITxTFZwQRPcOSIyDMVhFHPvASUmKHNfCFUeWXTtPYKfMKHjYP2EUWKg ICAgICAgICAgICAgICAgICAgICAgICAgICAgICAgICAgICAgICAgICAgICAgICAgICAgICAgICAgICAg ICAgICAgICAgICAgICAgICAgICAgICAgICAgICAgIC QgWTLhKE7DJWKqLBXyNRCbMIClORAcWGVaCKGeUQGtUKJlAURfFRBbZCOgGRCjRRQoZUUeUEWnWDFpIP NiOZDeYKClLQUeXRYdKOWiGQRiLIMjKYOwZVCcIJGqSBAkAZNvJFGgUVPdAUOlUW0KJMMxXPVsWYDmWT AgICAgICAgICAgICAgICAgICAgICAgICAgICAgICAg WHCbSXJlIFUwUWYqUPScVPAyXFWdJARgDSWwIMUiIUDoKPAhBZMbMPWhMUYjQKAwYWSoPQWjYGZzPP0C ICAgICAgICAgICAgICAgICAgICAgICAgICAgICAgICAgICAgICAgICAgICAgICAgICAgICAgICAgICAg ICAgICAgICAgICAgICAgICAgICAgICAgICAgICAgIC EgQBRdHCJpAK7ORTYtUSAhRBUzZROyJTXrVWXeLJQuBQCcTZNtHTPrFHYcKTLjVXDrEXCaINUwDTKoYQ HrFOHvAVVeCYOyIUUvYXDlZLHpBJDrSPUiZSMfDCBfZACpCGPcECRsVJApKZUxMNFgLL6WIIErUQIqGS AgICAgICAgICAgICAgICAgICAgICAgICAgICAgICAg ICAgICAgICAgICAgICAgICAgICAgICAgICAgICAgICAgICAgICAgICAgICAgICAgICAgICAgICAgICAg CD8TVWChMKTlQKOtDIBiQLAdFYTnAZKxKXVbJFUfHDBtRDTtKQPvLQRzMHDfHSRzMOViXRScEHWtUZQd ICAgICAgICAgICAgICAgICAgICAgICAgICAgICAgIC DtGXJtPGRlCCKzEI6ILAWwJTHcFJGzFXOvIJJlVXHdCSOhANGyVAWfCCXyXHMfEHQoDKNzQXErDPFhRX LpZLNcBYPeNNOiXSTbVKAgEEPeNREtBNVaKFXyIKJkHNHrXLPyXCJyDCTlNLSlPTQrHUPjOX5NEO57hG Mds1I9RBKoOZ1mbdr/Mn4KCQoumtHwoAAaXH9BDtLj FA7bqg3KLjBlEB8inb3QUIsQBmDjA0W9bZEbAVQkAYWNGzMdA77qIHomMs76TWunXHSaYxQhZNj4Jc2V PnRdN9tpOATrUlG9RKVcLxJdEQytKB8Fn0KekSHwHVr+Xp8AVY2ge4VyWTytBKPoVN5wxh4KYGuFHkSp F9Z2fSSrP1E2JUtoHj7RKGLdBJEkRFqnYUXFLJquBD 3OUV9vucP8CX5FxGBwODLmZGWwnNQoZRb3D62opWMpOCcwOQ8PZDX+Elida+Kc6RIEAaJKKsIMDzUlSfIL EJEwPeZ68itCXsQLBuICS7XTKeFg9PPJKiE6OfsqAjyGgfkyBhKWGnHCXDBG4IMPihqgGqgTTokDcnXY 57rBmpYK1JRj4CYaGqSJ7bzd0PyPKrLz3KZNGcVP6G OEQxHNBjSVJvJDI6KJVqKcOeVRvbRUFbHBMdKFH8BLFoPDNlQE1GUwAjDBUxVIG9UuKzEFOoPUMite0S ZHNtYGMtJoV2HLFvFCUtUODbNGcvINCqMCEwQGg0IKGjFLJzJM3PKpDeBMEfZKQ8UiFgCZLhTRNjem4Y UXKwGPKvBqE3WZPjBTRxQQQpZOnsJHUwHPP3TGAnQT WjZUFbVM8OKoDmZYEmKFXdGaruAKNxUROkzr9YQQVgUCZpIXJvDXLfMVEeZPJyYOweFQTqTFS9ArV5MQ ScUFDhWS3NWzTeXFLmNTF1CpieZJScYZUvyu5CYHDtKOKcKSb2RhPvAOAhAMLlFWxrCYAaNEL3WvA2NW OyQLDrFW3YEuIsKNWlKDW2LRPqZUFtWMXnfb0ONJMy MMXmGqBeEPZrLOQvWHZwJQyoFIOsVYErDzvsGGQgLTKsLT7LLfYoYEHyJFA0EACtTJWwWEItcu7ISFAs SXXpXyO2AOTaCNYiWGPcMCdkHHZvPTD2Wvd8VMHcNDDeHS9TJwUyYOtmXNBJLwn7CLnnC6e4GDQuQV3R Q5Skh9MwOMqgPEDPYBpkBU4ikjMjBCBdEg4WQ5xRYq nrA5NwPQOqKAIzCGV3MSLqN9S7EvCnSoAwOQFnDyG2LH4oUMGrCXMrUWFtIrBjHVZjKgAyXERmWUUxH7 EbLPZjVmSbFiLcRE2VXj6NOsM1XBM1pDQsUo4FCHt4EyGYZdGfRL9UICc= Procedure Social History Code Duration Value Status Description Data Source(s ) Alcohol intake 11/14/2019 12:00:00 AM EDT Not Currently completed [facility] Smoking 11/14/2019 12:00:00 AM EDT Former smoker completed Former smoker [facility] Alcohol intake 10/30/2019 12:00:00 AM EDT Not Currently completed [facility] Smoking 10/30/2019 12:00:00 AM EDT Former smoker completed Former smoker [facility] Alcohol intake 10/14/2019 12:00:00 AM EDT Not Currently completed [facility] Smoking 10/14/2019 12:00:00 AM EDT Former smoker completed Former smoker [facility] Vital Signs ID Date Data Source UNK Name Value Range Interpretation Code Description Data Source(s) Body mass index (BMI) [Ratio] 32.2 kg/m2 32.2 k g/m2 [facility] Body weight 165.00 [lb_av] 165.00 [lb_av] [facility] ([facility]) Body height 60 [in_i] 60 [in_i] [facility] ([facility]) 5'0" Body temperature 96.7 [degF] 96.7 [degF] [facility] ([facility] Oxygen saturation in Arterial blood by Pulse oximetry 97 % 97 % [facility] Respiratory rate 16 /min 16 /min [facility] Body temperature 37.17 Karen 37.17 Karen [facility] Heart rate 69 /min 69 /min [facility] Diastolic blood pressure 60 mm[Hg] 60 mm[Hg] [facility] Systolic blood pressure 129 mm[Hg] 129 mm[Hg] [facility] Body mass index (BMI) [Ratio] 31.27 kg/m2 31.27 kg/m2 [facility] Body weight 75.07 kg 75.07 kg [facility] Body height 154.9 cm 154.9 cm [facility] Oxygen saturation in Arterial blood by Pulse oximetry 98 % 98 % [facility] Respiratory rate 16 /min 16 /min [facility] Body temperature 36.33 Karen 36.33 Karen [facility] Heart rate 59 /min 59 /min [facility] Diastolic blood pressure 76 mm[Hg] 76 mm[Hg] [facility] Systolic blood pressure 128 mm[Hg] 128 mm[Hg] [facility] Body mass index (BMI) [Ratio] 28.53 kg/m2 28.53 kg/m2 [facility] Body weight 70.761 kg 70.761 kg [facility] Body height 157.5 cm 157.5 cm [facility] ID Date Data Source [id number] 02/27/2020 09:56:00 AM EST [facility] spital Name Value Range Interpretation Code Description Data Source(s) Weight Measurement Method 8 8 [facility] Weight (Calculated Kilograms) 69.40 69.40 [facility] Weight 2480 2480 [facility] pital Temperature Source 7 7 [facility] Temperature 97.5 97.5 [facility] spital Respiratory Effort 1 1 [facility] Respiratory Rate 20 20 [facility] Pulse Assessment Method 4 4 [facility] Pulse Rate 70 70 [facility] Height (Calculated Centimeters) 154.94 154. 94 [facility] Height 60 60 [facility] Blood Pressure 113/68 113/68 [facility] Body Mass Index (BMI) 28.9 28.9 [facility] Weight Measurement Method 8 8 [facility] Weight (Calculated Kilograms) 69.40 69.40 [facility] Weight 2480 2480 [facility] pital Temperature Source 7 7 [facility] Temperature 96.8 96.8 [facility] spital Respiratory Effort 1 1 [facility] Respiratory Rate 20 20 [facility] Pulse Assessment Method 4 4 [facility] Pulse Rate 70 70 [facility] Height (Calculated Centimeters) 154.94 154. 94 [facility] Height 60 60 [facility] Blood Pressure 124/74 124/74 [facility] Body Mass Index (BMI) 28.9 28.9 [facility] Weight (Calculated Kilograms) 69.40 69.40 [facility] Height (Calculated Centimeters) 154.94 154. 94 [facility] Body Mass Index (BMI) 28.9 28.9 [facility] Weight (Calculated Kilograms) 69.40 69.40 [facility] Height (Calculated Centimeters) 154.94 154. 94 [facility] Body Mass Index (BMI) 28.9 28.9 [facility] ID Date Data Source [id number] 03/10/2020 02:16:00 AM [facility] Name Value Range Interpretation Code Description Data Source(s) Weight (Calculated Kilograms) 70.96 70.96 [facility] Height (Calculated Centimeters) 154.94 154. 94 [facility] Body Mass Index (BMI) 29.5 29.5 [facility] Weight (Calculated Kilograms) 70.96 70.96 [facility] Height (Calculated Centimeters) 154.94 154. 94 [facility] Body Mass Index (BMI) 29.5 29.5 [facility] Weight (Calculated Kilograms) 70.96 70.96 [facility] Height (Calculated Centimeters) 154.94 154. 94 [facility] Body Mass Index (BMI) 29.5 29.5 [facility] ID Date Data Source [id number] 03/10/2020 09:02:00 AM [facility] Name Value Range Interpretation Code Description Data Source(s) Weight (Calculated Kilograms) 70.96 70.96 [facility] Height (Calculated Centimeters) 154.94 154. 94 [facility] Body Mass Index (BMI) 29.5 29.5 [facility] ID Date Data Source [id number] 03/23/2020 01:02:00 PM EST [facility] Name Value Range Interpretation Code Description Data Source(s) Weight (Calculated Kilograms) 70.96 70.96 [facility] Height (Calculated Centimeters) 154.94 154. 94 [facility] Body Mass Index (BMI) 29.5 29.5 [facility] Hospital ID Date Data Source [id number] 01/08/2020 09:41:00 AM [facility] Name Value Range Interpretation Code Description Data Source(s) Weight (Calculated Kilograms) 70.96 70.96 [facility] Height (Calculated Centimeters) 154.94 154. 94 [facility] Body Mass Index (BMI) 29.5 29.5 [facility] Weight (Calculated Kilograms) 70.96 70.96 [facility] Height (Calculated Centimeters) 154.94 154. 94 [facility] Body Mass Index (BMI) 29.5 29.5 [facility] ID Date Data Source [id number] 12/27/2019 10:05:00 AM [facility] Name Value Range Interpretation Code Description Data Source(s) Weight (Calculated Kilograms) 70.96 70.96 [facility] Height (Calculated Centimeters) 154.94 154. 94 [facility] Body Mass Index (BMI) 29.5 29.5 [facility] ID Date Data Source [id number] 12/21/2019 02:29:00 PM [facility] Name Value Range Interpretation Code Description Data Source(s) Weight (Calculated Kilograms) 70.96 70.96 [facility] Height (Calculated Centimeters) 154.94 154. 94 [facility] Body Mass Index (BMI) 29.5 29.5 [facility] ID Date Data Source [id number] 11/27/2019 12:44:00 PM [facility] Name Value Range Interpretation Code Description Data Source(s) Weight (Calculated Kilograms) 70.96 70.96 [facility] Height (Calculated Centimeters) 154.94 154. 94 [facility] Body Mass Index (BMI) 29.5 29.5 [facility] ID Date Data Source [id number] 12/26/2019 02:57:00 PM EDT [facility] Name Value Range Interpretation Code Description Data Source(s) Weight Measurement Method 4 4 [facility] Weight (Calculated Kilograms) 69.40 69.40 [facility] Weight 2448 2448 [facility] pital Temperature Source 3 3 [facility] Temperature 97.9 97.9 [facility] spital Respiratory Effort 1 1 [facility] Respiratory Rate 20 20 [facility] Pulse Assessment Method 4 4 [facility] Pulse Rate 64 64 [facility] Height (Calculated Centimeters) 154.94 154. 94 [facility] Height 61 61 [facility] Blood Pressure 98/56 98/56 [facility] Body Mass Index (BMI) 28.9 28.9 [facility] Weight Measurement Method 4 4 [facility] Weight (Calculated Kilograms) 69.40 69.40 [facility] Weight 2566 2566 [facility] pital Temperature Source 7 7 [facility] Temperature 98.4 98.4 [facility] spital Respiratory Effort 1 1 [facility] Respiratory Rate 18 18 [facility] Pulse Assessment Method 4 4 [facility] Pulse Rate 74 74 [facility] pital Height (Calculated Centimeters) 154.94 154. 94 [facility] Height 61 61 [facility] Blood Pressure 99/65 99/65 [facility] Body Mass Index (BMI) 28.9 28.9 [facility] Weight Measurement Method 4 4 [facility] Weight (Calculated Kilograms) 69.40 69.40 [facility] Weight 2566 2566 [facility] pital Temperature Source 7 7 [facility] Temperature 98.4 98.4 [facility] spital Respiratory Effort 1 1 [facility] Respiratory Rate 18 18 [facility] Pulse Assessment Method 4 4 [facility] Pulse Rate 74 74 [facility] pital Height (Calculated Centimeters) 154.94 154. 94 [facility] Height 61 61 [facility] Blood Pressure 99/65 99/65 [facility] Body Mass Index (BMI) 28.9 28.9 [facility] Weight Measurement Method 4 4 [facility] Weight (Calculated Kilograms) 69.40 69.40 [facility] Weight 2448 2448 [facility] pital Temperature Source 1 1 [facility] Temperature 97.7 97.7 [facility] spital Respiratory Effort 1 1 [facility] Respiratory Rate 15 15 [facility] Pulse Assessment Method 4 4 [facility] Pulse Rate 70 70 [facility] pital Height (Calculated Centimeters) 154.94 154. 94 [facility] Height 61 61 [facility] Blood Pressure 117/73 117/73 [facility] Body Mass Index (BMI) 28.9 28.9 [facility] Weight Measurement Method 4 4 [facility] Weight (Calculated Kilograms) 69.40 69.40 [facility] Weight 2448 2448 [facility] pital Temperature Source 1 1 [facility] Temperature 97.8 97.8 [facility] spital Respiratory Effort 1 1 [facility] Respiratory Rate 19 19 [facility] Pulse Assessment Method 4 4 [facility] Pulse Rate 70 70 [facility] pital Height (Calculated Centimeters) 154.94 154. 94 [facility] Height 61 61 [facility] Blood Pressure 120/71 120/71 [facility] Body Mass Index (BMI) 28.9 28.9 [facility] Weight Measurement Method 4 4 [facility] Weight (Calculated Kilograms) 69.40 69.40 [facility] Weight 2448 2448 [facility] pital Temperature Source 3 3 [facility] Temperature 97.9 97.9 [facility] spital Respiratory Effort 1 1 [facility] Respiratory Rate 20 20 [facility] Pulse Assessment Method 4 4 [facility] Pulse Rate 64 64 [facility] Height (Calculated Centimeters) 154.94 154. 94 [facility] Height 61 61 [facility] Blood Pressure 98/56 98/56 [facility] Body Mass Index (BMI) 28.9 28.9 [facility] ID Date Data Source [id number] 12/05/2019 08:26:00 AM EDT [facility] Name Value Range Interpretation Code Description Data Source(s) Weight Measurement Method 5 5 [facility] Weight (Calculated Kilograms) 70.96 70.96 [facility] Weight 2468.8 2468.8 [facility] Temperature Source 7 7 [facility] Temperature 98.6 98.6 [facility] Respiratory Effort 1 1 [facility] Respiratory Rate 20 20 [facility] Pulse Assessment Method 4 4 [facility] Pulse Rate 67 67 [facility] Height (Calculated Centimeters) 154.94 154. 94 [facility] Height 61 61 [facility] Blood Pressure 126/61 126/61 [facility] Body Mass Index (BMI) 29.5 29.5 [facility] Weight Measurement Method 5 5 [facility] Weight (Calculated Kilograms) 70.96 70.96 [facility] Weight 2468.8 2468.8 [facility] Temperature Source 7 7 [facility] Temperature 98.6 98.6 [facility] Respiratory Effort 1 1 [facility] Respiratory Rate 20 20 [facility] Pulse Assessment Method 4 4 [facility] Pulse Rate 67 67 [facility] Height (Calculated Centimeters) 154.94 154. 94 [facility] Height 61 61 [facility] Blood Pressure 126/61 126/61 [facility] Body Mass Index (BMI) 29.5 29.5 [facility] Weight Measurement Method 5 5 [facility] Weight (Calculated Kilograms) 70.96 70.96 [facility] Weight 2468.8 2468.8 [facility] Temperature Source 7 7 [facility] Temperature 98.6 98.6 [facility] Respiratory Effort 1 1 [facility] Respiratory Rate 20 20 [facility] Pulse Assessment Method 4 4 [facility] Pulse Rate 67 67 [facility] Height (Calculated Centimeters) 154.94 154. 94 [facility] Height 61 61 [facility] Blood Pressure 126/61 126/61 [facility] Body Mass Index (BMI) 29.5 29.5 [facility] Weight Measurement Method 5 5 [facility] Weight (Calculated Kilograms) 70.96 70.96 [facility] Weight 2468.8 2468.8 [facility] Temperature Source 7 7 [facility] Temperature 97.1 97.1 [facility] Respiratory Effort 1 1 [facility] Respiratory Rate 16 16 [facility] Pulse Assessment Method 4 4 [facility] Pulse Rate 55 55 [facility] Height (Calculated Centimeters) 154.94 154. 94 [facility] Height 61 61 [facility] Blood Pressure 108/57 108/57 [facility] Body Mass Index (BMI) 29.5 29.5 [facility] Weight (Calculated Kilograms) 74.12 74.12 [facility] Height (Calculated Centimeters) 157.48 157. 48 [facility] Body Mass Index (BMI) 29.9 29.9 [facility] Weight (Calculated Kilograms) 74.12 74.12 [facility] Height (Calculated Centimeters) 157.48 157. 48 [facility] Body Mass Index (BMI) 29.9 29.9 [facility] ID Date Data Source [id number] 11/15/2019 08:49:00 AM EDT [facility] Name Value Range Interpretation Code Description Data Source(s) Weight (Calculated Kilograms) 74.12 74.12 [facility] Height (Calculated Centimeters) 157.48 157. 48 [facility] Body Mass Index (BMI) 29.9 29.9 [facility] ID Date Data Source [id number] 11/18/2019 03:43:00 PM EDT [facility] Name Value Range Interpretation Code Description Data Source(s) Weight 2496 2496 [facility] Temperature Source 7 7 [facility] Temperature 98.8 98.8 [facility] Respiratory Effort 1 1 [facility] Respiratory Rate 22 22 [facility] Pulse Assessment Method 4 4 [facility] Pulse Rate 73 73 [facility] pital Blood Pressure 108/62 108/62 [facility] Weight 2496 2496 [facility] pital Temperature Source 7 7 [facility] Temperature 97.5 97.5 [facility] Respiratory Effort 1 1 [facility] Respiratory Rate 20 20 [facility] Pulse Assessment Method 4 4 [facility] Weight 2496 2496 [facility] pital Temperature Source 7 7 [facility] Temperature 97.5 97.5 [facility] Respiratory Effort 1 1 [facility] Respiratory Rate 20 20 [facility] Pulse Rate 87 87 [facility] pital Blood Pressure 116/63 116/63 [facility] Weight 2496 2496 [facility] pital Temperature Source 7 7 [facility] Temperature 97.5 97.5 [facility] Respiratory Effort 1 1 [facility] Respiratory Rate 20 20 [facility] Pulse Rate 56 56 [facility] pital Blood Pressure 118/60 118/60 [facility] Patient Treatment Plan of Care Planned Activity Planned Date Details Description Data Source (s) torsemide 20 MG Oral Tablet 11/21/2019 12:00:00 AM EDT [facility] Nadolol 20 MG Oral Tablet 11/21/2019 12:00:00 AM EDT [facility] Multiple Vitamins-Iron (MULTIVITAMIN WITH IRON) TABS 020 12:00:00 AM EDT [facility] Acetaminophen 325 MG / Oxycodone Hydrochloride 5 MG Or al Tablet 11/20/2019 12:00:00 AM EDT [facility] Acetaminophen 325 MG Oral Tablet 11/20/2019 12:00:00 AM EDT [facility] Insulin Glargine 100 UNT/ML Injectable Solution [Lantu s] 11/20/2019 12:00:00 AM EDT [facility] Lactulose 667 MG/ML Oral Solution 09/09/2019 12:00:00 AM EDT [facility] Insulin Glargine 100 UNT/ML Injectable Solution [facility] Furosemide 20 MG Oral Tablet [facility]
[2020-04-25] MEDS ORDERED: INSUDET SC (01:30)
[2020-04-25] MEDS ORDERED: ASPI81TA26 PO (01:30)
[2020-04-25] MEDS ORDERED: ALBUTEROL SULFATE 2.5 MG/0.5 ML INH NEB SOLN NEB SCH (02:00)
[2020-04-25] MEDS ORDERED: REMDESIVIR 200 MG in NS 250 ML IV ONE (02:00)
[2020-04-25] MEDS ORDERED: RISATAB3 PO (02:27)
[2020-04-25] MEDS ORDERED: INSU100V2 SQ (02:37)
[2020-04-25] MEDS ORDERED: [UNRECOGNIZED DRUG - CODE] PO (02:37)
[2020-04-25] MEDS ORDERED: MILK400S19 PO (02:37)
[2020-04-25] MEDS ORDERED: THERTAB19 PO (02:37)
[2020-04-25] MEDS ORDERED: D 1010004 PO (02:37)
[2020-04-25] MEDS ORDERED: VANC500P IV (02:37)
[2020-04-25] MEDS ORDERED: MAGN400T35 PO (02:37)
[2020-04-25] MEDS ORDERED: TRAM50TA2 PO (02:37)
[2020-04-25] MEDS ORDERED: ZINC1TAB2 PO (02:37)
[2020-04-25] MEDS ORDERED: DEXA1TA PO (02:37)
[2020-04-25] MEDS ORDERED: VITA500C24 PO (02:37)
[2020-04-25] MEDS ORDERED: ACET-683 PO (02:37)
[2020-04-25] MEDS: HumaLOG INSULIN (NovoLOG) PER UNIT SC SCH ×5 (03:16→21:00)
[2020-04-25 03:18] LABS: HEMATOCRIT 28.8 % (36.0-47.0); HEMOGLOBIN 9.1 g/dl (12.0-15.5); MEAN CORPUSCULAR HEMOGLOBIN 29.4 pg (27.0-33.0); MEAN CORPUSCULAR HGB CONC 31.6 g/dl (32.0-36.5); MEAN CORPUSCULAR VOLUME 93.2 fl (80.0-96.0); NEUTROPHILS % 85.8 % (36.0-66.0); PLATELET COUNT, AUTOMATED 120 10^3/uL (150-450); RED BLOOD COUNT 3.09 10^6/uL (4.00-5.40); WHITE BLOOD COUNT 3.6 10^3/uL (4.0-10.0)
[2020-04-25 03:19] LABS: LYMPH # 0.2 10^3/uL (1.5-5.0); MONO # 0.3 10^3/uL (0.0-0.8); MONO % 8.6 % (0.0-5.0); NEUTROPHILS # 3.1 10^3/uL (1.5-8.5)
[2020-04-25 03:31] LABS: PARTIAL THROMBOPLASTIN TIME 56.4 SECONDS (24.2-38.5)
[2020-04-25 03:35] LABS: FIBRINOGEN 137 MG/DL (221-452)
[2020-04-25] MEDS: DOXYCYCLINE HYCLATE 100 MG in D5W MINI-BAG PLUS 100 ML IV SCH ×2 (03:35→15:22)
[2020-04-25 03:43] LABS: HEMOGLOBIN A1c 5.8 %
[2020-04-25 03:47] LABS: ALBUMIN 1.6 GM/DL (3.2-5.2); BILIRUBIN,TOTAL 3.6 MG/DL (0.2-1.0); C REACTIVE PROTEIN QUANTITATIV 10.2 MG/DL (0.00-0.30); CREATININE FOR GFR 1.12 MG/DL (0.55-1.30); GLOMERULAR FILTRATION RATE 49.3 (>32); MAGNESIUM LEVEL 1.9 MG/DL (1.8-2.4); POTASSIUM SERUM 3.3 MEQ/L (3.5-5.1); TOTAL PROTEIN 5.6 GM/DL (6.4-8.2); TROPONIN I 0.04 NG/ML (< 0.10)
[2020-04-25 03:48] LABS: D-DIMER QUANT > 4000.00 ng/ml (<500)
[2020-04-25] MEDS ORDERED: SODIUM CHLORIDE 0.9% INJ 10 ML SYR IV ONE (04:00)
[2020-04-25] MEDS ORDERED: SODIUM CHLORIDE 0.9% INJ 10 ML SYR IV PRN (04:30)
--- NOTE | 2020-04-25 05:55 | HPEPDOC ---
[facility] Medical History & Physical Date of Admission Apr 25, 2020 Date of Service: Apr 25, 2020 Attending Physician: HAROLDO ALEGRE MD History and Physical TIME OF SERVICE: 130am CHIEF COMPLAINT: dyspnea HISTORY OF PRESENT ILLNESS: This 84 yr old F is temporarily residing at a [place] temporarily where she is receiving abx via a PICC for an infected hip prosthesis. She was transferred to [facility] [place] w c/o dyspnea but denied having acough, fever chills or chest pain. Per the patient had O2 sats of 92% on RA, was wheezing and had LLE swelling. Her COVID 19 test was positive, CTA revealed PNA and the LLE US was unremarkable. She received zosyn, azithromycin, and remdesivir prior to transfer to [facility] was requested for a higher level of care. Remarkable lab tests from [place] Hg10 .2, Na 121, K 3.2, Cl 79, CO2 32, glucose 187, [id number] acid 6.6, CRP 133 REVIEW OF SYSTEMS: 12-point review of systems negative except as listed in HPI PAST MEDICAL/ SURGICAL HISTORY: Chronic HFpEF / Pulmonary hypertension Liver cirrhosis complicated by episodes of hepatic encephalopathy & hyponatremia CAD / DLP CKD3 HTN Asthma IDDM Obesity Bradycardia requiring pacemaker placement GERD Hearing loss Chronic right pleural effusion with underexpansion of the right lung s/p th oracentesis Cardio dextrorotation Hysterectomy Appendectomy Cholecystectomy Tonsillectomy Right hip fx 2/2 fall that was managed w hemiarthroplasty, 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 Denies alcohol or recreational drug use. Resides at a [place]. FAMILY HISTORY: n/a ALLERGIES: Please see below. HOME MEDICATIONS: Please see below. PHYSICAL EXAMINATION: VITAL SIGNS: Please see below. GENERAL APPEARANCE: well nourished / well developed / NAD HEENT: scleral icterus / NC in place CARDIOVASCULAR: RRR/NMRG LUNGS: breath sounds diminished ABDOMEN: obese/ soft &NT MUSCULOSKELETAL: NCAT INTEGUMENT: jaundice NEUROLOGICAL: speech not dysarthric PSYCHIATRIC: A&Ox 3 /able to understand and follow all commands LABORATORY DATA: see HPI IMAGING: see HPI MICROBIOLOGY: see HPI ASSESSMENT: is an 84 yr old w a hx of HFpEF, pulmonary HTN, liver cirrhosis, CAD, HTN asthma, IDDM, pacemaker, infected right hip prosthesis and hearing loss who was transferred from [place] for tx of sepsis 2/2 COVID 19 PNA. PLAN: 1 Sepsis 2/2 COVID 19 PNA qCSI score = low intermediate risk Lactic acid elevated Plan: admit to PCU / continuous pulse ox / supplemental O2 up to 3L with target O2 sats between 92-95% / contact & air borne precautions / f/u repeat plts (if low indicates bad prognosis), CRP (if high indicates bad prognosis), INR, BMP, fibrinogen, INR, D-dimer, PT, PTT (if patient has DIC indicates bad prognosis), ferritin, LDH, troponins (if elevated will need Echo to r/o viral cardiomyopathy) / VBG to assess the degree of hypoxemia / Ceftriaxone, Doxycyline and Vanc for CAP pending procalcitonin, sputum cx, strep pneumo, legionella & mycoplasma, MRSA to r/o bacterial PNA / since she is requiring supplemental O2 to maintain her sats above 92 will start dexamethasone & c/w Remdesivir 2. Acute Asthma Plan: albuterol / [place]ymb[place]ourt 3. Hypokalemia Plan: KCl / f/u Mg 4. Chronic NN Anemia At baseline Plan: f/u CBC 5. Infected hip prosthesis Plan: c/w Vanc 6. Chronic HFpEF / pulmonary HTN / HTN Plan: resume diuretics 7 Liver cirrhosis Plan: Lactulose, rifaxamin, spironolactone & torsemide 8. Chronic Hyponatremia At baseline Plan: f/u CMP 9. IDDM Plan: diabetic diet / f/u accuchecks / / hypoglycemia protocol / sliding scale insulin / hold oral anti-glycemic / Long acting insulin 10 untis BID DVT px w Lovenox and ASA Dispo: back to [place] after more than 2 midnights stay Vital Signs Vital Signs Date Time Temp Pulse Resp B/P (MAP) Pulse Ox O2 Delivery O2 Flow Rate FiO2 04/25/20 04:52 3.0 04/25/20 04:30 95 Nasal Cannula 04/25/20 04:00 98.7 100 20 110/54 (72) Laboratory Data Labs 24H Laboratory Tests 2 04/25/20 01:55: Methicillin-Resist S.aureus DNA PCR NOT DETECTED 04/25/20 03:00: Bedside Glucose (Misc Panel) 189H 04/25/20 03:06: Immature Granulocyte % (Auto) 0.6, Neutrophils (%) (Auto) 85.8H, Lymphocytes (%) (Auto) 5.0L, Monocytes (%) (Auto) 8.6H, Eosinophils (%) (Auto) 0.0, Basophils (%) (Auto) 0.0, Neutrophils # (Auto) 3.1, Lymphocytes # (Auto) 0.2L, Monocytes # (Auto) 0.3, Eosinophils # (Auto) 0.0, Basophils # (Auto) 0.0, Nucleated Red Blood Cells % (auto) 0.0, Prothrombin Time 24.0H, Prothromb Time International Ratio 2.10, Activated Partial Thromboplast Time 56.4H, Fibrinogen 137L, D-Dimer, Quantitative > 4000.00H, Anion Gap 9, Glomerular Filtration Rate 49.3, Lactic Acid Level 3.5*H, Calcium Level 8.0L, Magnesium Level 1.9, Ferritin 653H, Total Bilirubin 3.6H, Direct Bilirubin 3.0H, Aspartate Amino Transf (AST/SGOT) 55H, Alanine Aminotransferase (ALT/SGPT) 6L, Alkaline Phosphatase 189H, Lactate Dehydrogenase 349H, Total Creatine Kinase 28, Troponin I 0.04, C-Reactive Protein, Quantitative 10.20H, GL-Mcu-S-Type Natriuretic Peptide 1738H, Total Protein 5.6L, Albumin 1.6L, Albumin/Globulin Ratio 0.4L 04/25/20 03:10: Estimated Mean Plasma Glucose 120H, Hemoglobin A1c 5.8 CBC/BMP Laboratory Tests 04/25/20 03:06 Microbiology Microbiology 04/25/20 Blood Culture, Received Pending Home Medications Scheduled Ascorbic Acid (Vitamin C) 500 Mg Capsule, 500 MG PO BID Aspirin (Aspirin EC) 81 Mg Tablet.dr, 81 MG PO BID Cholecalciferol (Vitamin D3) (Vitamin D3) 25 Mcg Capsule, 25 MCG PO DAILY Dexamethasone (Dexamethasone) 1 Mg Tablet, 3 MG PO TID Insulin Detemir (Levemir) 100 Unit/1 Ml Vial, 10 UNITS SC BID Insulin Lispro (Insulin Lispro) 100 Unit/1 Ml Vial, 1 DOSE SQ QID PER SLIDING SCALE L.acidoph/L.bulg/B.bif/S.therm ([place]-Bid Caplet) 1 Each Tablet, 1 TAB PO QID Lactulose (Lactulose) 10 Gm/15 Ml Skylar, 30 ML PO TID Magnesium Oxide (Magnesium Oxide) 400 Mg Tablet, 400 MG PO DAILY for constipation Multivitamin with Folic Acid (Thera Tablet) 400 Mcg Tablet, 1 TAB PO DAILY Omeprazole (Omeprazole) 20 Mg Cap, 20 MG PO DAILY Rifampin (Rifadin) 300 Mg Capsule, 300 MG PO BID 1400,2000 Spironolactone (Spironolactone) 25 Mg Tablet, 25 MG PO DAILY Torsemide (Torsemide) 20 Mg Tablet, 20 MG PO DAILY Vancomycin/Water For Inj (Peg) (Vancomycin 500 mg/100 ml Bag) 500 Mg/100 Ml Piggyback, 500 MG IV DAILY Zinc (Zinc) 50 Mg Tablet, 50 MG PO DAILY Scheduled PRN Acetaminophen (Acetaminophen) 500 Mg Tablet, 1,000 MG PO Q8H PRN for PAIN Magnesium Hydroxide (Milk of Magnesia) 400 Mg/5 Ml Oral.susp, 400 MG PO DAILY PRN for CONSTIPATION Tramadol HCl (Tramadol HCl) 50 Mg Tablet, 50 MG PO Q4H PRN for MODERATE PAIN (PS 5-7) Allergies Coded Allergies: meperidine (Verified Adverse Reaction, Mild, N/V, 02/25/20) A-FIB/CHADSVASC A-FIB History Current/History of A-Fib/PAF?: No Current PO Anticoag Therapy: HAROLDO Davis MD Apr 25, 2020 05:55
[2020-04-25] MEDS: cefTRIAXone SOD 1 GM in D5W MINI-BAG PLUS 50 ML IV SCH (06:10)
[2020-04-25] MEDS: SODIUM CHLORIDE 0.9% INJ 10 ML SYR IV SCH ×3 (06:10→21:15)
[2020-04-25] MEDS ORDERED: VANCOMYCIN HCL 500 MG in D5W MINI-BAG PLUS 100 ML IV SCH ×2 (06:45→12:00)
[2020-04-25] MEDS ORDERED: traMADol 50 MG TAB PO PRN (06:45)
[2020-04-25] MEDS: COMBIVENT RESPIMAT 100-20MCG INHALER 4GM INH SCH ×3 (07:54→20:00)
[2020-04-25] MEDS: ASPIRIN 81 MG ENTERIC TAB PO SCH (08:47)
[2020-04-25] MEDS: TORSEMIDE 20 MG TAB PO SCH (08:47)
[2020-04-25] MEDS: LACTULOSE 20 GM/30 ML SYRUP UD PO SCH ×3 (08:48→21:13)
[2020-04-25] MEDS: SPIRONOLACTONE 25 MG TAB PO SCH (08:48)
[2020-04-25] MEDS: LEVEMIR (INSULIN DETEMIR) 1 UNITS/0.01ML SC SCH ×2 (08:48→21:14)
[2020-04-25] MEDS: PANTOPRAZOLE 40MG TAB (PROTONIX) PO SCH (08:48)
[2020-04-25] MEDS: ENOXAPARIN 30MG/0.3ML SYRINGE (J1650 PER 10MG) SC SCH (08:49)
[2020-04-25] MEDS: NYSTATIN 100,000 UNITS/GM TOPICAL PWD 15 GM TOP SCH ×2 (08:49→21:13)
[2020-04-25] MEDS ORDERED: POTASSIUM CHLORIDE 10 MEQ SR TABLET PO ONE (09:00)
[2020-04-25 09:04] LABS: VENOUS BASE EXCESS 6.7 (-2.0-2.0); VENOUS HCO3 30.9 MEQ/L (23.0-27.0); VENOUS O2 SATURATION 87.8 % (60.0-80.0); VENOUS PARTIAL PRESSURE CO2 43.1 mmHg (38.0-50.0); VENOUS PH 7.474 UNITS (7.330-7.430); VENOUS STANDARD HCO3 30.3 MEQ/L; VENOUS TOTAL CO2 32.3 MEQ/L (24.0-28.0)
[2020-04-25] MEDS: ACETAMINOPHEN TAB 650MG DOSE (2X325MG) PO PRN (09:09)
[2020-04-25] MEDS: dexameTHASONE 4 MG/ML 1ML VIAL (J1100 PER 1MG) IV SCH (09:09)
[2020-04-25] MEDS: rifAMPin 150MG CAPSULE PO SCH ×2 (13:30→21:14)
[2020-04-25] MEDS: REMDESIVIR 100 MG in NS 250 ML IV SCH (21:13)
--- NOTE | 2020-04-25 21:23 | IPNPDOC ---
Subjective Date Seen The patient was seen on 04/25/20. Subjective Chief Complaint/HPI Mrs. Cabello is an 84 year old female from [place] for IV antibiotics for infected hip prothesis who was transferred here for sepsis 2/2 COVID pneumonia. She was seen this afternoon. Denied any chest pain or abdominal pain. She was very hard of hearing. Objective Physical Examination General Exam: Positive: No Acute Distress Eye Exam: Negative: Sclera icteric Neck Exam: Positive: Supple Chest Exam: Positive: Diminished Heart Exam: Positive: Rate Normal, Regular Rhythm Abdomen Exam: Positive: Normal bowel sounds, Soft; Negative: Tenderness Assessment /Plan Assessment Mrs. Cabello is an 84 year old female from [place] for IV antibiotics for infected hip prothesis who was transferred here for sepsis 2/2 COVID pneumonia. She was on Vancomycin for her infected hip prothesis. Ceftriaxone and doxycycline was added on for CAP. Patient currently requiring 3L of NC. Pending clinical improvement prior to sending back to [place]. Plan/VTE VTE Prophylaxis Ordered?: Yes Plan 1. Sepsis 2/2 COVID PNA -Requiring 3L of NC -Continues on Ceftriaxone and Doxycycline -Sputum cultures ordered and pending 2. COVID PNA -Receiving remdesivir, dexamethasone, Lovenox and ASA 3. Asthma -Continue albuterol and symbicort 4. Infected hip prothesis -Continue Vancomycin 5. Liver cirrhosis -Continue with lactulose, rifaxmin, spironolactone, and torsemide 6. IDDM -Continue basal=bolus insulin -Carbohydrate consistent diet 7. DVT ppx -Lovenox and aspirin VS, I&O, 24H, Fishbone Vital Signs/I&O Vital Signs Date Time Temp Pulse Resp B/P (MAP) Pulse Ox O2 Delivery O2 Flow Rate FiO2 04/25/20 20:00 98.8 88 18 122/69 (86) 94 Nasal Cannula 3.0 I&O- Last 24 Hours up to 6 AM 04/25/20 06:00 Intake Total 300 ml Balance 300 ml Laboratory Data 24H LABS Laboratory Tests 2 04/25/20 01:55: Methicillin-Resist S.aureus DNA PCR NOT DETECTED 04/25/20 03:00: Bedside Glucose (Misc Panel) 189H 04/25/20 03:06: Immature Granulocyte % (Auto) 0.6, Neutrophils (%) (Auto) 85.8H, Lymphocytes (%) (Auto) 5.0L, Monocytes (%) (Auto) 8.6H, Eosinophils (%) (Auto) 0.0, Basophils (%) (Auto) 0.0, Neutrophils # (Auto) 3.1, Lymphocytes # (Auto) 0.2L, Monocytes # (Auto) 0.3, Eosinophils # (Auto) 0.0, Basophils # (Auto) 0.0, Nucleated Red Blood Cells % (auto) 0.0, Prothrombin Time 24.0H, Prothromb Time International Ratio 2.10, Activated Partial Thromboplast Time 56.4H, Fibrinogen 137L, D-Dimer, Quantitative > 4000.00H, Anion Gap 9, Glomerular Filtration Rate 49.3, Lactic Acid Level 3.5*H, Calcium Level 8.0L, Magnesium Level 1.9, Ferritin 653H, Total Bilirubin 3.6H, Direct Bilirubin 3.0H, Aspartate Amino Transf (AST/SGOT) 55H, Alanine Aminotransferase (ALT/SGPT) 6L, Alkaline Phosphatase 189H, Lactate Dehydrogenase 349H, Total Creatine Kinase 28, Troponin I 0.04, C-Reactive Protein, Quantitative 10.20H, HS-Rql-S-Type Natriuretic Peptide 1738H, Total Protein 5.6L, Albumin 1.6L, Albumin/Globulin Ratio 0.4L, Procalcitonin 0.49 04/25/20 03:10: Estimated Mean Plasma Glucose 120H, Hemoglobin A1c 5.8 04/25/20 06:16: Bedside Glucose (Misc Panel) 226H 04/25/20 08:00: 04/25/20 08:50: Blood Gas Bicarbonate Standard 30.3, Venous Blood pH 7.474H, Venous Blood Partial Pressure CO2 43.1, Venous Blood Partial Pressure O2 55.0H, Venous Blood Total Carbon Dioxide 32.3H, Venous Blood HCO3 30.9H, Venous Blood Oxygen Saturation 87.8H, Venous Blood Base Excess 6.7H, Lactic Acid Followup at 4 Hours 2.8*H, Magnesium Level 2.0 04/25/20 11:59: Lactic Acid Level 2.3*H, Vancomycin Level Trough 2.6L 04/25/20 12:01: Bedside Glucose (Misc Panel) 140H 04/25/20 17:08: Bedside Glucose (Misc Panel) 120H 04/25/20 18:28: Lactic Acid Followup at 4 Hours 2.9*H 04/25/20 21:03: Bedside Glucose (Misc Panel) 118H CBC/BMP Laboratory Tests 04/25/20 03:06 Microbiology Microbiology 04/25/20 Blood Culture, Received Pending PREMA DEL VALLE DO Apr 25, 2020 21:22
[2020-04-26] VITALS (10 sets, daily range): BP systolic 92–112; BP diastolic 50–78; O2SAT 94–98
[2020-04-26] MEDS: COMBIVENT RESPIMAT 100-20MCG INHALER 4GM INH SCH ×4 (01:49→20:00)
[2020-04-26] MEDS ORDERED: REMDESIVIR 100 MG in NS 250 ML IV SCH (02:00)
[2020-04-26] MEDS: DOXYCYCLINE HYCLATE 100 MG in D5W MINI-BAG PLUS 100 ML IV SCH ×2 (02:54→15:42)
[2020-04-26] MEDS: cefTRIAXone SOD 1 GM in D5W MINI-BAG PLUS 50 ML IV SCH (05:44)
[2020-04-26] MEDS: SODIUM CHLORIDE 0.9% INJ 10 ML SYR IV SCH ×3 (05:48→22:47)
[2020-04-26 05:51] LABS: HEMATOCRIT 29.7 % (36.0-47.0); HEMOGLOBIN 9.5 g/dl (12.0-15.5); LYMPH # 0.3 10^3/uL (1.5-5.0); LYMPH % 3.8 % (24.0-44.0); MEAN CORPUSCULAR VOLUME 93.7 fl (80.0-96.0); MONO # 0.6 10^3/uL (0.0-0.8); MONO % 6.5 % (0.0-5.0); NEUTROPHILS # 7.7 10^3/uL (1.5-8.5); NEUTROPHILS % 89.1 % (36.0-66.0); PLATELET COUNT, AUTOMATED 116 10^3/uL (150-450); RED BLOOD COUNT 3.17 10^6/uL (4.00-5.40); WHITE BLOOD COUNT 8.6 10^3/uL (4.0-10.0)
[2020-04-26 06:27] LABS: CALCIUM LEVEL 8.2 MG/DL (8.8-10.2); CREATININE FOR GFR 1.08 MG/DL (0.55-1.30); GLOMERULAR FILTRATION RATE 51.5 (>32); MAGNESIUM LEVEL 1.8 MG/DL (1.8-2.4); POTASSIUM SERUM 3.4 MEQ/L (3.5-5.1); TROPONIN I 0.03 NG/ML (< 0.10); VANCOMYCIN RANDOM 6.7 UG/ML
[2020-04-26] MEDS: HumaLOG INSULIN (NovoLOG) PER UNIT SC SCH ×4 (07:30→20:40)
[2020-04-26] MEDS ORDERED: VANCOMYCIN HCL 1,000 MG, VIAL MATE ADAPTER 1 EACH in D5W 250 ML IV SCH (08:00)
[2020-04-26] MEDS: SPIRONOLACTONE 25 MG TAB PO SCH (08:29)
[2020-04-26] MEDS: POTASSIUM CHLORIDE 10 MEQ SR TABLET PO SCH (08:29)
[2020-04-26] MEDS: LACTULOSE 20 GM/30 ML SYRUP UD PO SCH ×3 (08:29→20:32)
[2020-04-26] MEDS: PANTOPRAZOLE 40MG TAB (PROTONIX) PO SCH (08:29)
[2020-04-26] MEDS: TORSEMIDE 20 MG TAB PO SCH (08:29)
[2020-04-26] MEDS: ASPIRIN 81 MG ENTERIC TAB PO SCH (08:29)
[2020-04-26] MEDS: ENOXAPARIN 30MG/0.3ML SYRINGE (J1650 PER 10MG) SC SCH (08:30)
[2020-04-26] MEDS: NYSTATIN 100,000 UNITS/GM TOPICAL PWD 15 GM TOP SCH ×2 (08:30→20:41)
[2020-04-26] MEDS: dexameTHASONE 4 MG/ML 1ML VIAL (J1100 PER 1MG) IV SCH (08:30)
[2020-04-26] MEDS ORDERED: VANCOMYCIN HCL 500 MG in D5W MINI-BAG PLUS 100 ML IV SCH (09:00)
[2020-04-26] MEDS: LEVEMIR (INSULIN DETEMIR) 1 UNITS/0.01ML SC SCH ×2 (09:00→20:41)
[2020-04-26] MEDS: rifAMPin 150MG CAPSULE PO SCH ×2 (15:43→20:32)
--- NOTE | 2020-04-26 19:24 | IPNPDOC ---
Subjective Date Seen The patient was seen on 04/26/20. Subjective Chief Complaint/HPI Mrs. Cabello is an 84 year old female from [place] for IV antibiotics for infected hip prothesis who was transferred here for sepsis 2/2 COVID pneumonia. She reports dyspnea, but denies chest pain or abdominal pain. Nurse reports her appetite is poor, but she does drink the ensure. She does have cirrhosis which may explain her soft blood pressures Objective Physical Examination General Exam: Positive: No Acute Distress Eye Exam: Negative: Sclera icteric Neck Exam: Positive: Supple Chest Exam: Positive: Diminished Heart Exam: Positive: Rate Normal, Regular Rhythm Abdomen Exam: Positive: Normal bowel sounds, Soft; Negative: Tenderness Assessment /Plan Assessment Mrs. Cabello is an 84 year old female from [place] for IV antibiotics for infected hip prothesis who was transferred here for sepsis 2/2 COVID pneumonia. She was on Vancomycin for her infected hip prothesis. Ceftriaxone and doxycycline was added on for CAP. Patient currently requiring 3L of NC. Pending clinical improvement prior to sending back to [place]. Plan/VTE VTE Prophylaxis Ordered?: Yes Plan 1. Sepsis 2/2 COVID PNA -Requiring 3L of NC -Continues on Ceftriaxone and Doxycycline -Sputum cultures ordered and pending -Legionella, Mycoplasma, and strep pneumonia Ag also pending 2. COVID PNA -Receiving remdesivir, dexamethasone, Lovenox and ASA -CRP 10.2 -Ferritin 653 3. Asthma -Continue albuterol and symbicort 4. Infected hip prothesis -Continue Vancomycin 5. Liver cirrhosis -Continue with lactulose, rifaxmin, spironolactone, and torsemide 6. IDDM -Continue basal-bolus insulin -Carbohydrate consistent diet 7. DVT ppx -Lovenox and aspirin VS, [facility]I&O Vital Signs Date Time Temp Pulse Resp B/P (MAP) Pulse Ox O2 Delivery O2 Flow Rate FiO2 04/26/20 16:15 104 21 94/64 (74) 95 Nasal Cannula 2.0 04/26/20 15:46 97.6 I&O- Last 24 Hours up to 6 AM 04/26/20 06:00 Intake Total 900 ml Output Total 450 ml Balance 450 ml Laboratory Data 24H LABS Laboratory Tests 2 04/25/20 21:03: Bedside Glucose (Misc Panel) 118H 04/25/20 23:49: Lactic Acid Level 2.1*H 04/26/20 05:28: Lactic Acid Followup at 4 Hours 1.9 04/26/20 05:29: Immature Granulocyte % (Auto) 0.6, Neutrophils (%) (Auto) 89.1H, Lymphocytes (%) (Auto) 3.8L, Monocytes (%) (Auto) 6.5H, Eosinophils (%) (Auto) 0.0, Basophils (%) (Auto) 0.0, Neutrophils # (Auto) 7.7, Lymphocytes # (Auto) 0.3L, Monocytes # (Auto) 0.6, Eosinophils # (Auto) 0.0, Basophils # (Auto) 0.0, Nucleated Red Blood Cells % (auto) 0.0, Anion Gap 7L, Glomerular Filtration Rate 51.5, Calcium Level 8.2L, Magnesium Level 1.8, Troponin I 0.03#, Random Vancomycin Level 6.7 04/26/20 05:43: 04/26/20 07:28: Bedside Glucose (Misc Panel) 54L 04/26/20 08:23: Bedside Glucose (Misc Panel) 84 04/26/20 12:24: Bedside Glucose (Misc Panel) 171H 04/26/20 17:34: Bedside Glucose (Misc Panel) 256H CBC/BMP Laboratory Tests 04/26/20 05:29 Microbiology Microbiology 04/25/20 Blood Culture - Preliminary, Resulted No growth after 24 hours . All specim... PREMA DEL VALLE DO Apr 26, 2020 19:24
[2020-04-26] MEDS: REMDESIVIR 100 MG in NS 250 ML IV SCH (20:32)
[2020-04-26] MEDS: SUCRALFATE SUSP 1GM/10ML UD PO SCH (20:32)
[2020-04-27 00:29] VITALS: BP 113/65
[2020-04-27] MEDS: COMBIVENT RESPIMAT 100-20MCG INHALER 4GM INH SCH ×4 (02:08→20:07)
[2020-04-27] MEDS: DOXYCYCLINE HYCLATE 100 MG in D5W MINI-BAG PLUS 100 ML IV SCH ×2 (03:56→16:08)
[2020-04-27 04:12] VITALS: BP 112/72
[2020-04-27 05:24] VITALS: BP 104/70
[2020-04-27] MEDS: cefTRIAXone SOD 1 GM in D5W MINI-BAG PLUS 50 ML IV SCH (05:36)
[2020-04-27] MEDS: SODIUM CHLORIDE 0.9% INJ 10 ML SYR IV SCH ×3 (05:36→23:14)
[2020-04-27 05:42] LABS: INR 2.15; PROTHROMBIN TIME 24.5 SECONDS (12.5-14.3)
[2020-04-27 05:43] LABS: PARTIAL THROMBOPLASTIN TIME 59.7 SECONDS (24.2-38.5)
[2020-04-27 06:04] LABS: ALBUMIN 1.5 GM/DL (3.2-5.2); BILIRUBIN,DIRECT 2.9 MG/DL (0.0-0.2); BILIRUBIN,TOTAL 3.3 MG/DL (0.2-1.0); C REACTIVE PROTEIN QUANTITATIV 6.86 MG/DL (0.00-0.30); TOTAL PROTEIN 5.4 GM/DL (6.4-8.2); TROPONIN I 0.03 NG/ML (< 0.10)
[2020-04-27 08:00] VITALS: BP 96/94
[2020-04-27] MEDS: ENOXAPARIN 30MG/0.3ML SYRINGE (J1650 PER 10MG) SC SCH (08:30)
[2020-04-27] MEDS: LACTULOSE 20 GM/30 ML SYRUP UD PO SCH ×3 (08:30→20:57)
[2020-04-27] MEDS: ASPIRIN 81 MG ENTERIC TAB PO SCH (08:30)
[2020-04-27] MEDS: PANTOPRAZOLE 40MG TAB (PROTONIX) PO SCH (08:30)
[2020-04-27] MEDS: TORSEMIDE 20 MG TAB PO SCH (08:30)
[2020-04-27] MEDS: POTASSIUM CHLORIDE 10 MEQ SR TABLET PO SCH (08:30)
[2020-04-27] MEDS: dexameTHASONE 4 MG/ML 1ML VIAL (J1100 PER 1MG) IV SCH (08:31)
[2020-04-27] MEDS: HumaLOG INSULIN (NovoLOG) PER UNIT SC SCH ×4 (08:31→21:00)
[2020-04-27] MEDS: SPIRONOLACTONE 25 MG TAB PO SCH (08:31)
[2020-04-27] MEDS: SUCRALFATE SUSP 1GM/10ML UD PO SCH ×4 (08:31→20:57)
[2020-04-27] MEDS: LEVEMIR (INSULIN DETEMIR) 1 UNITS/0.01ML SC SCH ×2 (08:32→21:00)
[2020-04-27] MEDS: VANCOMYCIN HCL 1,000 MG, VIAL MATE ADAPTER 1 EACH in D5W 250 ML IV SCH (08:39)
[2020-04-27] MEDS: NYSTATIN 100,000 UNITS/GM TOPICAL PWD 15 GM TOP SCH ×2 (08:39→20:57)
[2020-04-27] MEDS ORDERED: cefTRIAXone SOD 1 GM in D5W MINI-BAG PLUS 50 ML IV SCH (11:00)
[2020-04-27 12:00] VITALS: BP 119/66
--- NOTE | 2020-04-27 12:35 | REP ---
INDICATION: COVID PNEUMONIA. COMPARISON: Comparison chest CT studies are from November 10, 2017, March 22, 2020, and March 29, 2020.. TECHNIQUE: Helical scanning is acquired. 3 mm axial images are generated. Coronal and sagittal MPR and coronal MIP images are generated. FINDINGS: The previously noted right pleural effusion with parietal pleural thickening is again seen. There is collapse and consolidation in the right lower lobe suggesting spiral atelectasis. These are chronic findings. There is a 3.5 cm low-density lesion in the right lobe of the liver visible on today's CT chest images. The right pleural effusion appears larger than the study done on 29 March 2020. There are new scattered areas of ground-glass opacification in the left upper lobe fairly extensively and in a patchy distribution in the periphery of the left base consistent with the history of COVID-19 pneumonia. These ground-glass opacity infiltrates are new when compared with the most recent prior study of March 29, 2020. The right lung is otherwise unchanged from most recent prior study. There is upper abdominal ascites. There is evidence of a right-sided PICC line and a left-sided transvenous pacemaker. IMPRESSION: New ground-glass opacity infiltrates left upper lobe and left lower lobe consistent with COVID-19 pneumonia. Fairly extensive left upper lobe disease. Pre-existing volume loss in the right lung and atelectasis and consolidation in the right lower lobe again seen. Moderate right pleural effusion somewhat increased from the most recent study of March 29, 2020. <Electronically signed by Abdiel Vieira > 04/27/20 [id number]
--- NOTE | 2020-04-27 12:41 | REP ---
INDICATION: COVID PNEUMONIA, CIRRHOSIS COMPARISON: Comparison CT study is chest study from March 29, 2020.. TECHNIQUE: Helical scanning is acquired in 4 mm axial images were reformatted. Coronal and sagittal MPR images were generated and reviewed. FINDINGS: Preliminary digital pilot boat operator radiograph shows right pleural effusion and evidence of ascites. Moderate diffuse abdominal ascites is observed on today's CT study. This appears increased when compared with the March 29, 2020 study. Today's exam demonstrates a somewhat heterogeneous low-density liver lesion measuring 3.4 by 3.8 by 3.3 cm in diameter. This was not observed previously. Mass versus abscess. There is evidence of cirrhosis with nodular liver contour and hypertrophy of the left lobe as before. The spleen is not felt to be enlarged. The stomach is somewhat dilated with air and fluid. Small and large bowel loops are unremarkable in the abdomen. A Quigley catheter is seen in the decompressed bladder. The kidneys shows small cortical cysts bilaterally. No hydronephrosis. The umbilical vein is recannulated consistent with some degree of portal hypertension. IMPRESSION: Diffuse abdominal ascites moderate in degree and increased from the most recent prior CT study of the chest. Cirrhosis pattern. New 3.8 cm low-density lesion in the right lobe of the liver, mass versus abscess. The small cortical cysts in each kidney. Gastric distention with air and fluid. <Electronically signed by Abdiel Vieira > 04/27/20 [id number]
[2020-04-27] MEDS: rifAMPin 150MG CAPSULE PO SCH ×2 (13:47→20:56)
--- NOTE | 2020-04-27 14:34 | IPNPDOC ---
Text Note Date of Service The patient was seen on 04/27/20. NOTE Subjective: No acute events overnight. Patient continues to endorse some shortness of breath and is not sure if it's due to her asthma or something else. She continues to endorse generalized weakness and fatigue and feeling poor in general. Denies any chest pain, abdominal pain, nausea, vomiting, constipation, diarrhea. Objective: General: Sick appearing female lying in bed in no acute distress. HEENT: NC, AT. EOMI, no scleral icterus. No pharyngeal erythema, mucous membranes moist. Neck: No lymphadenopathy or JVD CV: RRR, Normal S1 and S2. No murmurs, gallops, or rubs. Resp: Diminished breath sounds bilaterally with crackles auscultated in the right lower lobe. No wheezes, crackles, or rhonchi. No dullness to percussion. Abdomen: Bowel sounds present. Abdomen is soft, nontender with mild to moderate distention. No hepatosplenomegaly on palpation although this is difficult secondary to body habitus. No masses or ecchymosis. Extremities: 2+ pitting edema in bilateral lower extremities. Neurologic: No focal neurologic deficits. Psychiatric: Normal mood and affect. Imagin04/27/20 CT abdomen and pelvis without contrast: "Diffuse abdominal ascites moderate in degree and increased from the most recent prior CT study of the chest. Cirrhosis pattern. New 3.8 cm low-density lesion in the right lobe of the liver, mass versus abscess. The small cortical cysts in each kidney. Gastric distention with air and fluid." 04/27/[address] without contrast: "New ground-glass opacity infiltrates left upper lobe and left lower lobe consistent with COVID-19 pneumonia. Fairly extensive left upper lobe disease. Pre-existing volume loss in the right lung and atelectasis and consolidation in the right lower lobe again seen. Moderate right pleural effusion somewhat increased from the most recent study of March 29, 2020." Assessment/Plan: Patient is an 84-year-old female who presents from [facility] for rehabilitation and nursing care for infected right hip prosthesis requiring IV vancomycin with stop date of 05/02/2020 who presented to [facility] emergency department on 04/24 with chief complaint of shortness of breath and was diagnosed with sepsis secondary to Covid pneumonia and transfer was requested to [facility] for higher level of care. Patient was started on Remdesivir, doxycycline, Rocephin. CT chest is showing increased right-sided pleural effusion and findings consistent with Covid pneumonia. CT abdomen and pelvis is showing increased abdominal ascites compared to prior imaging. Patient will be going for ultrasound guided abdominal paracentesis. #. Sepsis secondary to Covid pneumonia -Diagnosed in [place] ED on 04/24. Attempting to obtain outside records for first symptom date. -Obtaining CT chest as she may require better diuresis/nutrition consu lts/thoracentesis. -Remdesivir (day 4), Lovenox, aspirin -Continue Rocephin, doxycycline #. Infected right hip prosthesis -S/p right hip femoral neck fracture repair on 02/25, 03/21 revision of right hip infected prosthesis. -In light of this, discontinuing dexamethasone -Continue IV vancomycin, stop date of 05/02/2020. #. Decompensated liver cirrhosis -Continue with lactulose, rifaxmin, spironolactone, and torsemide -CT abdomen and pelvis showing increased abdominal ascites, IR for diagnostic/therapeutic paracentesis today or tomorrow. #. Asthma -Continue albuterol and symbicort #. IDDM -Sliding-scale insulin -Carbohydrate consistent diet #. DVT ppx -Lovenox and aspirin Disposition: Pending clinical improvement, prognosis guarded VS,Fishbone, I+O VS, Fishbone, I+O Vital Signs Date Time Temp Pulse Resp B/P (MAP) Pulse Ox O2 Delivery O2 Flow Rate FiO2 04/27/20 09:00 3.0 04/27/20 08:00 97.3 101 22 96/94 (95) 97 Nasal Cannula I&O- Last 24 Hours up to 6 AM 04/27/20 06:00 Intake Total 1180 ml Output Total 1000 ml Balance 180 ml GME ATTESTATION GME ATTESTATION My faculty preceptor for this patient encounter was physically present during the encounter and was fully available. All aspects of the patient interview, examination, medical decision making process, and medical care plan development were reviewed and approved by the faculty preceptor. The faculty preceptor is aware and concurs with the plan as stated in the body of this note and will attest to such by his/her cosignature. ATTENDING NOTE I, Jose Ramon Calderon MD, have independently examined this patient and performed my own physical exam, as well as reviewed the documentation and edited where necessary. I have discussed in detail with the resident / student the findings and plan of treatment as documented by the resident / student and edited their note. I agree with their findings and treatment plan and have edited their documentation. JOHN OLEA DO Apr 27, 2020 14:34 JOSE RAMON CALDERON MD May 01, 2020 12:37
[2020-04-27] MEDS: ACETAMINOPHEN TAB 650MG DOSE (2X325MG) PO PRN (17:37)
[2020-04-27 20:10] VITALS: BP 97/63
[2020-04-27] MEDS: REMDESIVIR 100 MG in NS 250 ML IV SCH (20:57)
[2020-04-28] MEDS: VANCOMYCIN HCL 1,000 MG, VIAL MATE ADAPTER 1 EACH in D5W 250 ML IV SCH ×2 (02:13→23:41)
[2020-04-28] MEDS: COMBIVENT RESPIMAT 100-20MCG INHALER 4GM INH SCH ×4 (02:13→20:31)
[2020-04-28] MEDS: DOXYCYCLINE HYCLATE 100 MG in D5W MINI-BAG PLUS 100 ML IV SCH (03:23)
[2020-04-28] MEDS: cefTRIAXone SOD 1 GM in D5W MINI-BAG PLUS 50 ML IV SCH (05:05)
[2020-04-28] MEDS: SODIUM CHLORIDE 0.9% INJ 10 ML SYR IV SCH ×3 (05:05→23:23)
[2020-04-28 05:20] LABS: HEMATOCRIT 28.2 % (36.0-47.0); LYMPH # 0.5 10^3/uL (1.5-5.0); LYMPH % 7.4 % (24.0-44.0); MEAN CORPUSCULAR HEMOGLOBIN 29.7 pg (27.0-33.0); MEAN CORPUSCULAR HGB CONC 31.9 g/dl (32.0-36.5); MEAN CORPUSCULAR VOLUME 93.1 fl (80.0-96.0); MONO # 0.8 10^3/uL (0.0-0.8); MONO % 10.5 % (0.0-5.0); NEUTROPHILS # 5.9 10^3/uL (1.5-8.5); NEUTROPHILS % 81.5 % (36.0-66.0); PLATELET COUNT, AUTOMATED 113 10^3/uL (150-450); RED BLOOD COUNT 3.03 10^6/uL (4.00-5.40); WHITE BLOOD COUNT 7.2 10^3/uL (4.0-10.0)
[2020-04-28 05:49] LABS: ALBUMIN 1.4 GM/DL (3.2-5.2); BILIRUBIN,TOTAL 4.2 MG/DL (0.2-1.0); CALCIUM LEVEL 7.6 MG/DL (8.8-10.2); CREATININE FOR GFR 0.95 MG/DL (0.55-1.30); GLOMERULAR FILTRATION RATE 59.7 (>32); POTASSIUM SERUM 3.3 MEQ/L (3.5-5.1); TOTAL PROTEIN 5.2 GM/DL (6.4-8.2)
[2020-04-28] MEDS ORDERED: POTASSIUM CHLORIDE 10 MEQ SR TABLET PO ONE (07:45)
[2020-04-28 08:00] VITALS: BP 97/65
[2020-04-28] MEDS: POTASSIUM CHLORIDE 10 MEQ SR TABLET PO SCH (08:46)
[2020-04-28] MEDS: PANTOPRAZOLE 40MG TAB (PROTONIX) PO SCH (08:47)
[2020-04-28] MEDS: SUCRALFATE SUSP 1GM/10ML UD PO SCH ×4 (08:47→20:22)
[2020-04-28] MEDS: TORSEMIDE 20 MG TAB PO SCH (08:47)
[2020-04-28] MEDS: SPIRONOLACTONE 25 MG TAB PO SCH (08:47)
[2020-04-28] MEDS: LACTULOSE 20 GM/30 ML SYRUP UD PO SCH ×3 (08:48→20:21)
[2020-04-28] MEDS: NYSTATIN 100,000 UNITS/GM TOPICAL PWD 15 GM TOP SCH ×2 (08:48→20:22)
[2020-04-28] MEDS: HumaLOG INSULIN (NovoLOG) PER UNIT SC SCH ×4 (08:48→19:48)
[2020-04-28] MEDS: LEVEMIR (INSULIN DETEMIR) 1 UNITS/0.01ML SC SCH ×2 (08:48→20:21)
--- NOTE | 2020-04-28 11:21 | IPNPDOC ---
Text Note Date of Service The patient was seen on 04/28/20. NOTE Subjective: No acute events overnight. Patient states that she feels better to day generally and that her breathing is significantly improved. Denies any chest pain, abdominal pain, nausea, vomiting, constipation, diarrhea. Objective: General: Tired appearing female who appears stated age lying in bed in no acute distress. HEENT: NC, AT. EOMI, no scleral icterus. No pharyngeal erythema, mucous membranes moist. Neck: No lymphadenopathy or JVD CV: RRR, Normal S1 and S2. No murmurs, gallops, or rubs. Resp: Diminished breath sounds bilaterally with crackles auscultated in the right lower lobe. No wheezes, crackles, or rhonchi. No dullness to percussion. Transmitted upper airway sounds heard on auscultation. Abdomen: Bowel sounds present. Abdomen is soft, nontender with mild distention. No hepatosplenomegaly on palpation although this is difficult secondary to body habitus. No masses or ecchymosis. Extremities: 2+ pitting edema in bilateral lower extremities. Neurologic: No focal neurologic deficits. Psychiatric: Normal mood and affect. Imagin04/27/20 CT abdomen and pelvis without contrast: "Diffuse abdominal ascites moderate in degree and increased from the most recent prior CT study of the chest. Cirrhosis pattern. New 3.8 cm low-density lesion in the right lobe of the liver, mass versus abscess. The small cortical cysts in each kidney. Gastric distention with air and fluid." 04/27/[address] without contrast: "New ground-glass opacity infiltrates left upper lobe and left lower lobe consistent with COVID-19 pneumonia. Fairly extensive left upper lobe disease. Pre-existing volume loss in the right lung and atelectasis and consolidation in the right lower lobe again seen. Moderate right pleural effusion somewhat increased from the most recent study of March 29, 2020." Assessment/Plan: Patient is an 84-year-old female who presents from [facility] for rehabilitation and nursing care for infected right hip prosthesis requiring IV vancomycin with stop date of 05/02/2020 who presented to [facility] emergency department on 04/24 with chief complaint of shortness of breath and was diagnosed with sepsis secondary to Covid pneumonia and transfer was requested to [facility] for higher level of care. Patient was started on Remdesivir, doxycycline, Rocephin. CT chest is showing increased right-sided pleural effusion and findings consistent with Covid pneumonia. CT abdomen and pelvis is showing increased abdominal ascites compared to prior imaging. Patient will be going for ultrasound guided abdominal paracentesis. #. Sepsis secondary to Covid pneumonia -Diagnosed in [place] ED on 04/24. Attempting to obtain outside records for first symptom date. -Obtaining CT chest as she may require better diuresis/nutrition consults/thoracentesis. -Remdesivir (day 4), Lovenox, aspirin -Continue Rocephin, doxycycline #. Decompensated liver cirrhosis -Continue with lactulose, spironolactone, and torsemide -CT abdomen and pelvis showing increased abdominal ascites, IR for diagnostic/therapeutic paracentesis today #. Infected right hip prosthesis -S/p right hip femoral neck fracture repair on 02/25, 03/21 revision of right hip infected prosthesis. -In light of this, discontinuing dexamethasone -Continue IV vancomycin, rifampin stop date of 05/02/2020. #. Asthma -Continue albuterol and symbicort #. IDDM -Sliding-scale insulin -Carbohydrate consistent diet #. DVT ppx -Lovenox and aspirin Disposition: Pending clinical improvement, prognosis guarded VS,Fishbone, I+O VS, Fishbone, I+O Laboratory Tests 04/28/20 05:07 Vital Signs Date Time Temp Pulse Resp B/P (MAP) Pulse Ox O2 Delivery O2 Flow Rate FiO2 04/28/20 08:00 96.5 98 20 97/65 (76) 94 Nasal Cannula 1.0 I&O- Last 24 Hours up to 6 AM 04/28/20 06:00 Intake Total 1390 ml Output Total 1200 ml Balance 190 ml GME ATTESTATION GME ATTESTATION My faculty preceptor for this patient encounter was physically present during the encounter and was fully available. All aspects of the patient interview, examination, medical decision making process, and medical care plan development were reviewed and approved by the faculty preceptor. The faculty preceptor is aware and concurs with the plan as stated in the body of this note and will attest to such by his/her cosignature. ATTENDING NOTE I, Jose Ramon Calderon MD, have independently examined this patient and performed my own physical exam, as well as reviewed the documentation and edited where necessary. I have discussed in detail with the resident / student the findings and plan of treatment as documented by the resident / student and edited their note. I agree with their findings and treatment plan and have edited their documentation. JOHN OLEA DO Apr 28, 2020 11:21 JOSE RAMON CALDERON MD May 01, 2020 12:39
[2020-04-28] MEDS: rifAMPin 150MG CAPSULE PO SCH ×2 (12:47→20:21)
[2020-04-28 15:36] VITALS: BP 98/70
[2020-04-28 16:11] LABS: APPEARANCE, BODY FLUID TURBID (CLEAR); ASCITES FL COLOR RED (COLORLESS); SOURCE, BODY FLUID ASCITES
[2020-04-28 16:12] LABS: SOURCE, BODY FLUID ALBUMIN ASCITES; SPEC. GRAVITY BODY FLUIDS 1.013 (NOT ESTABLISHED)
[2020-04-28 16:21] LABS: SOURCE, BODY FLUID GLUCOSE ASCITES; SOURCE, BODY FLUID TOT PROTEIN ASCITES; TOTAL PROTEIN, BODY FLUID 1.6 G/DL (NOT ESTABLISHED)
--- NOTE | 2020-04-28 16:59 | REP ---
INDICATION: ascites. COMPARISON: None. TECHNIQUE: The procedure was performed under the direct supervision of Dr. Vieira. The risks and benefits of the procedure were explained to the patient and informed consent was obtained. The risks and benefits of the procedure were explained to the patient and informed consent was obtained. The largest pocket of fluid was localized in the right flank using ultrasound guidance. The skin was prepped and draped in a sterile fashion. 1% lidocaine was used as a local anesthetic. An 8-[employer] [place] multi side-hole catheter was inserted using trocar technique. 3400 cc of low viscosity red colored fluid was withdrawn with a sample sent to the lab for analysis. The patient tolerated the procedure well and there were no immediate complications. After the appropriate amount of monitored convalescence, the patient was discharged from the department. FINDINGS: None IMPRESSION: Ultrasound-guided paracentesis yielding 3400 cc of low viscosity red colored fluid. <Electronically signed by José Arriaga > 04/28/20 1617 <Electronically signed by Abdiel Vieira > 04/28/20 [id number]
[2020-04-28 18:07] LABS: MYCOPLASMA PNEUMONIAE IgG 327 U/mL (0-99); MYCOPLASMA PNEUMONIAE IgM <770 U/mL (0-769)
[2020-04-28 20:00] VITALS: BP 96/55
[2020-04-28] MEDS: REMDESIVIR 100 MG in NS 250 ML IV SCH (20:22)
[2020-04-29] MEDS: COMBIVENT RESPIMAT 100-20MCG INHALER 4GM INH SCH ×4 (01:23→20:00)
[2020-04-29 04:00] VITALS: BP 116/85
[2020-04-29] MEDS: cefTRIAXone SOD 1 GM in D5W MINI-BAG PLUS 50 ML IV SCH (05:19)
[2020-04-29] MEDS: SODIUM CHLORIDE 0.9% INJ 10 ML SYR IV SCH ×3 (05:19→22:00)
[2020-04-29 05:55] LABS: BASO % 0.1 % (0.0-1.0); HEMATOCRIT 31.4 % (36.0-47.0); HEMOGLOBIN 10.3 g/dl (12.0-15.5); LYMPH # 0.6 10^3/uL (1.5-5.0); MEAN CORPUSCULAR HEMOGLOBIN 30.2 pg (27.0-33.0); MEAN CORPUSCULAR HGB CONC 32.8 g/dl (32.0-36.5); MEAN CORPUSCULAR VOLUME 92.1 fl (80.0-96.0); MONO # 1.3 10^3/uL (0.0-0.8); MONO % 11.3 % (0.0-5.0); NEUTROPHILS # 9.5 10^3/uL (1.5-8.5); NEUTROPHILS % 83.2 % (36.0-66.0); PLATELET COUNT, AUTOMATED 164 10^3/uL (150-450); RED BLOOD COUNT 3.41 10^6/uL (4.00-5.40); WHITE BLOOD COUNT 11.4 10^3/uL (4.0-10.0)
[2020-04-29 06:06] LABS: INR 2.43
[2020-04-29 06:07] LABS: PARTIAL THROMBOPLASTIN TIME 62.1 SECONDS (24.2-38.5)
[2020-04-29 06:22] LABS: ALBUMIN 1.3 GM/DL (3.2-5.2); ALT/SGPT < 6 U/L (12-78); BILIRUBIN,DIRECT 4.8 MG/DL (0.0-0.2); BILIRUBIN,TOTAL 5.6 MG/DL (0.2-1.0); BLOOD UREA NITROGEN 17 MG/DL (7-18); CALCIUM LEVEL 7.4 MG/DL (8.8-10.2); CARBON DIOXIDE LEVEL 33 MEQ/L (21-32); CHLORIDE LEVEL 90 MEQ/L (98-107); CPK CREATINE PHOSPHOKINASE 19 U/L (26-192); CREATININE FOR GFR 0.89 MG/DL (0.55-1.30); FERRITIN 354 NG/ML (8-252); GLOMERULAR FILTRATION RATE > 60.0 (>32); GLUCOSE, FASTING 73 MG/DL (70-100); LDH LACTATE DEHYDROGENASE 358 U/L (84-246); NT-PRO BNP 857 PG/ML (<450); POTASSIUM SERUM 3.6 MEQ/L (3.5-5.1); SODIUM LEVEL 129 MEQ/L (136-145); TOTAL PROTEIN 5.4 GM/DL (6.4-8.2); TROPONIN I 0.03 NG/ML (< 0.10)
[2020-04-29] MEDS: HumaLOG INSULIN (NovoLOG) PER UNIT SC SCH ×4 (07:30→21:00)
[2020-04-29 08:44] VITALS: BP 93/57
[2020-04-29] MEDS: TORSEMIDE 20 MG TAB PO SCH (08:52)
[2020-04-29] MEDS: POTASSIUM CHLORIDE 10 MEQ SR TABLET PO SCH (08:52)
[2020-04-29] MEDS: SPIRONOLACTONE 25 MG TAB PO SCH (08:52)
[2020-04-29] MEDS: PANTOPRAZOLE 40MG TAB (PROTONIX) PO SCH (08:52)
[2020-04-29] MEDS: NYSTATIN 100,000 UNITS/GM TOPICAL PWD 15 GM TOP SCH ×2 (08:53→21:58)
[2020-04-29] MEDS: LACTULOSE 20 GM/30 ML SYRUP UD PO SCH ×3 (08:54→21:57)
[2020-04-29] MEDS: SUCRALFATE SUSP 1GM/10ML UD PO SCH ×4 (08:55→21:57)
[2020-04-29] MEDS: ASPIRIN 81 MG ENTERIC TAB PO SCH (09:40)
[2020-04-29] MEDS: ENOXAPARIN 30MG/0.3ML SYRINGE (J1650 PER 10MG) SC SCH (09:41)
--- NOTE | 2020-04-29 10:39 | IPNPDOC ---
Text Note Date of Service The patient was seen on 04/29/20. NOTE Subjective: No acute events overnight. Patient says the procedure well well and she has no issues. She currently has some intermittent abdominal pain and is complaining of feeling generally unwell but cannot elaborate further. She denies any fever, chills, chest pain, shortness of breath, nausea, vomiting, constipation. Objective: General: Tired appearing female who appears stated age lying in bed in no acute distress. HEENT: NC, AT. EOMI, no scleral icterus. No pharyngeal erythema, mucous membranes moist. Neck: No lymphadenopathy or JVD CV: RRR, Normal S1 and S2. No murmurs, gallops, or rubs. Resp: Diminished breath sounds bilaterally with crackles auscultated in the right lower lobe. No wheezes, crackles, or rhonchi. No dullness to percussion. Transmitted upper airway sounds heard on auscultation. Abdomen: Bowel sounds present. Abdomen is soft, non-tender with mild distention. No hepatosplenomegaly on palpation although this is difficult secondary to body habitus. No masses or ecchymosis. Extremities: 2+ pitting edema in bilateral lower extremities. Neurologic: No focal neurologic deficits. Psychiatric: Normal mood and affect. Imagin04/27/20 CT abdomen and pelvis without contrast: "Diffuse abdominal ascites moderate in degree and increased from the most recent prior CT study of the chest. Cirrhosis pattern. New 3.8 cm low-density lesion in the right lobe of the liver, mass versus abscess. The small cortical cysts in each kidney. Gastric distention with air and fluid." 04/27/[address] without contrast: "New ground-glass opacity infiltrates left upper lobe and left lower lobe consistent with COVID-19 pneumonia. Fairly extensive left upper lobe disease. Pre-existing volume loss in the right lung and atelectasis and consolidation in the right lower lobe again seen. 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 Patient was started on Remdesivir, doxycycline, Rocephin. CT chest is showing increased right-sided pleural effusion and findings consistent with Covid pneumonia. CT abdomen and pelvis is showing increased abdominal ascites compared to prior imaging. Patient went for ultrasound guided abdominal paracentesis on 04/28 with 4.3 L removed demonstrating a cirrhotic presentation. Her oxygen requirements have significantly decreased however she complained of generalized weakness so PT/OT was consulted for evaluation. #. Decompensated liver cirrhosis -s/p diagnostic/therapeutic paracentesis on 04/28 with 4.3 L removed. No indication for albumin. Ascitic fluid analysis consistent with cirrhotic picture. -Continue with lactulose, spironolactone, and torsemide #. Hypoxia secondary to COVID pneumonia -Diagnosed in [place] ED on 04/24. Attempting to obtain outside records for first symptom date. -Lovenox, aspirin. Completed course of Remdesivir. -Continue Rocephin, dc doxy #. Sepsis secondary to Covid pneumonia -Essentially resolved. #. Infected right hip prosthesis -S/p right hip femoral neck fracture repair on 02/25, 03/21 revision of right hip infected prosthesis. -In light of this, discontinuing dexamethasone -Continue IV vancomycin, rifampin stop date of 05/02/2020. #. Asthma -Continue albuterol and symbicort #. IDDM -Sliding-scale insulin -Carbohydrate consistent diet #. DVT ppx -Lovenox and aspirin Disposition: Pending PT/OT evaluation. VS,Fishbone, I+O VS, Fishbone, I+O Laboratory Tests 04/29/20 05:26 Vital Signs Date Time Temp Pulse Resp B/P (MAP) Pulse Ox O2 Delivery O2 Flow Rate FiO2 04/29/20 08:44 97.2 107 17 93/57 (69) 94 Nasal Cannula 2.0 I&O- Last 24 Hours up to 6 AM 04/29/20 06:00 Intake Total 1180 ml Output Total 4450 ml Balance -3270 ml GME ATTESTATION GME ATTESTATION My faculty preceptor for this patient encounter was physically present during the encounter and was fully available. All aspects of the patient interview, examination, medical decision making process, and medical care plan development were reviewed and approved by the faculty preceptor. The faculty preceptor is aware and concurs with the plan as stated in the body of this note and will attest to such by his/her cosignature. ATTENDING NOTE I, Jose Ramon Calderon MD, have independently examined this patient and performed my own physical exam, as well as reviewed the documentation and edited where necessary. I have discussed in detail with the resident / student the findings and plan of treatment as documented by the resident / student and edited their note. I agree with their findings and treatment plan and have edited their documentation. JOHN OLEA DO Apr 29, 2020 10:39 JOSE RAMON CALDERON MD May 01, 2020 12:54
[2020-04-29] MEDS: rifAMPin 150MG CAPSULE PO SCH ×2 (15:00→21:57)
[2020-04-29 17:17] VITALS: BP 90/55
[2020-04-30] VITALS (35 sets, daily range): BP systolic 50–141; BP diastolic 22–76
[2020-04-30] MEDS: VANCOMYCIN HCL 1,000 MG, VIAL MATE ADAPTER 1 EACH in D5W 250 ML IV SCH ×3
[2020-04-30] MEDS: COMBIVENT RESPIMAT 100-20MCG INHALER 4GM INH SCH ×2 (02:15→10:30)
[2020-04-30] MEDS ORDERED: NOREPINEPHRINE BITARTRATE 8 MG in D5W 492 ML IV SCH ×2 (05:30→15:30)
[2020-04-30] MEDS ORDERED: NOREPINEPHRINE 4 MG/4 ML AMP As Ordered ONE (05:38)
[2020-04-30] MEDS ORDERED: NOREPINEPHRINE BITARTRATE 16 MG in D5W 484 ML IV SCH ×2 (05:45→10:00)
[2020-04-30] MEDS: SODIUM CHLORIDE 0.9% INJ 10 ML SYR IV SCH (07:04)
--- NOTE | 2020-04-30 07:27 | IPNPDOC ---
Date Seen The patient was seen on 04/30/20. Progress Note Night resident called to bedside to evaluate patient with low pressure. On evaluation, the patient had BP of 56/20 manually. She was mentating although a ppeared lethargic. Extremities were cool and clammy. Decision was made to transfer patient to ICU. Levophed was started with titration for map >65. Patients BP did recover with Levophed and mentation improved ASSESSMENT AND PLAN: Patient is a 84 year old female with a history of liver cirrhosis admitted with COVID-19 infection. PROBLEMS: 1. Hypotension 2/2 Decompensated liver cirrhosis -Patient noted to be markedly hypotensive. BP of 56/20. Patient was mentating although appeared lethargic. On review of patients chart she did receive a paracentesis today with 4.5 L of fluid removed. Her decompensation could be secondary to this although her paracentesis was not considered large volume. -Levophed currently running through patients single lumen PICC. She may benefit from Albumin given her third spacing. She does have poor vascular access and may need additional vascular access DISPOSITION: Overall poor prognosis. Patient remains DNR/DNI ATTENDING NOTE Discussed with resident/student regarding plan of care and agree with the above assessment and plan. VS, I&O, 24H, Fishbone Vital Signs/I&O Vital Signs Date Time Temp Pulse Resp B/P (MAP) Pulse Ox O2 Delivery O2 Flow Rate FiO2 04/30/20 06:30 109 24 73/43 (53) 94 Room Air 04/30/20 06:06 96.0 04/29/20 21:00 2.0 I&O- Last 24 Hours up to 6 AM 04/30/20 06:00 Intake Total 0 ml Output Total 400 ml Balance -400 ml Laboratory Data 24H LABS Laboratory Tests 2 04/29/20 11:32: Bedside Glucose (Misc Panel) 117H 04/29/20 12:32: Coronavirus (COVID-19)(PCR) POSITIVEA 04/29/20 17:06: Bedside Glucose (Misc Panel) 87 04/29/20 22:10: Bedside Glucose (Misc Panel) 115H 04/30/20 00:02: Vancomycin Level Trough 25.5*H Microbiology Microbiology 04/28/20 Acid Fast Stain, Received Pending 04/28/20 Mycobacterial Culture, Received Pending 04/28/20 Fungal Smear, Received Pending 04/28/20 Fungal Culture, Received Pending 04/28/20 Gram Stain - Final, Resulted 04/28/20 Body Fluid Culture, Resulted Pending 04/25/20 Blood Culture - Final, Complete NO GROWTH AFTER 5 DAYS HAKAN NAVAS DO Apr 30, 2020 07:27 ADDI WILBURN MD Apr 30, 2020 21:53
[2020-04-30] MEDS: SUCRALFATE SUSP 1GM/10ML UD PO SCH ×2 (07:30→12:16)
[2020-04-30 07:39] LABS: BASO % 0.1 % (0.0-1.0); HEMATOCRIT 32.8 % (36.0-47.0); HEMOGLOBIN 10.1 g/dl (12.0-15.5); LYMPH # 0.8 10^3/uL (1.5-5.0); LYMPH % 4.2 % (24.0-44.0); MEAN CORPUSCULAR HEMOGLOBIN 29.2 pg (27.0-33.0); MEAN CORPUSCULAR HGB CONC 30.8 g/dl (32.0-36.5); MEAN CORPUSCULAR VOLUME 94.8 fl (80.0-96.0); MONO # 2.2 10^3/uL (0.0-0.8); MONO % 12.2 % (0.0-5.0); NEUTROPHILS # 14.9 10^3/uL (1.5-8.5); NEUTROPHILS % 81.7 % (36.0-66.0); PLATELET COUNT, AUTOMATED 236 10^3/uL (150-450); RED BLOOD COUNT 3.46 10^6/uL (4.00-5.40)
[2020-04-30] MEDS: cefTRIAXone SOD 1 GM in D5W MINI-BAG PLUS 50 ML IV SCH (07:48)
[2020-04-30 08:06] LABS: WHITE BLOOD COUNT 18.2 10^3/uL (4.0-10.0)
[2020-04-30 08:25] LABS: ALBUMIN 1.4 GM/DL (3.2-5.2); BILIRUBIN,TOTAL 6.4 MG/DL (0.2-1.0); CALCIUM LEVEL 8.8 MG/DL (8.8-10.2); GLOMERULAR FILTRATION RATE 25.3 (>32); POTASSIUM SERUM 4.6 MEQ/L (3.5-5.1); TOTAL PROTEIN 5.6 GM/DL (6.4-8.2)
--- NOTE | 2020-04-30 09:31 | REP ---
INDICATION: central line. COMPARISON: Comparison chest x-ray 29 March 2020. TECHNIQUE: Portable upright AP chest radiograph. FINDINGS: A right subclavian line has been inserted and its course is seen to be ascending in the right neck soft tissues consistent with jugular vein position. There is no evidence of pneumothorax. A right pleural effusion is again noted blunting the right lateral pleural angle. There is volume loss in the aerated right lung. There are new peripheral alveolar infiltrates in the left upper lobe and left base laterally.. These are visible on April 27, 2020 CT study. A bipolar pacemaker is again seen. There is some shift of the mediastinum to the right as before. IMPRESSION: Right subclavian line ascends in the right neck consistent with internal jugular position. No pneumothorax seen. Right pleural effusion, volume loss the right hemithorax, and left upper and lower lobe infiltrates again noted.. <Electronically signed by Abdiel Vieira > 04/30/20 0998
[2020-04-30] MEDS: HumaLOG INSULIN (NovoLOG) PER UNIT SC SCH ×2 (09:56→12:16)
[2020-04-30] MEDS: ASPIRIN 81 MG ENTERIC TAB PO SCH (09:56)
[2020-04-30] MEDS: POTASSIUM CHLORIDE 10 MEQ SR TABLET PO SCH (10:00)
[2020-04-30] MEDS: PANTOPRAZOLE 40MG TAB (PROTONIX) PO SCH (10:08)
[2020-04-30] MEDS: LACTULOSE 20 GM/30 ML SYRUP UD PO SCH (10:11)
[2020-04-30] MEDS: ENOXAPARIN 30MG/0.3ML SYRINGE (J1650 PER 10MG) SC SCH (10:11)
[2020-04-30] MEDS: NYSTATIN 100,000 UNITS/GM TOPICAL PWD 15 GM TOP SCH (10:11)
[2020-04-30] MEDS ORDERED: NS 1,000 ML IV ONE ×3 (10:15→12:15)
[2020-04-30 10:39] LABS: MAGNESIUM LEVEL 1.3 MG/DL (1.8-2.4); PHOSPHORUS LEVEL 4.2 MG/DL (2.5-4.9)
[2020-04-30 10:54] LABS: ABG BASE EXCESS -6.9 (-2.0-2.0); ABG HCO3 16.2 MEQ/L (22.0-26.0); ABG O2 SATURATION 90.9 % (95.0-99.0); ABG PARTIAL PRESSURE CO2 25.4 mmHg (35.0-45.0); ABG PARTIAL PRESSURE O2 64.2 mmHg (75.0-100.0); ABG STANDARD HCO3 18.7 MEQ/L (22.0-26.0); ABG pH (ARTERIAL) 7.422 UNITS (7.350-7.450)
[2020-04-30] MEDS: MAG SULF 1GM/100ML (MAG RUN) 1 GM in IV 1 EA IV SCH ×2 (11:25→12:38)
--- NOTE | 2020-04-30 12:21 | RO ---
OPERATIVE NOTE DATE OF OPERATION: 04/30/2020 PREOPERATIVE DIAGNOSIS: Shock. POSTOPERATIVE DIAGNOSIS: Shock. PROCEDURE: Emergent right subclavian CVP placement. SURGEON: Jd Blas M.D. MOLD CUTTING MACHINE OPERATOR: None. ANESTHESIA: DESCRIPTION OF PROCEDURE: I was called stat to the intensive care unit to evaluate this patient due to shock unresponsive to pressor therapy. She is hospitalized for liver failure and is confused and combative. The procedure was felt to be emergent. The patient was placed in the supine position. The skin overlying the right subclavian vein was prepped with ChloraPrep and draped in a sterile fashion. A 25-gauge needle was used to raise a skin wheel with 1% Lidocaine. Thereafter, a 17-gauge introducer needle was placed in through the skin. The right subclavian vein was able to be accessed, but it was difficult to pass a wire. Multiple attempts were made to secure the vein. Eventually, we were able to pass a wire. A small incision was made adjacent to the wire and the triple lumen catheter placed into the venous system. There was some difficulty in passing the catheter and some difficulty in removing the wire from the catheter. The ports; however, flushed freely and good venous blood return was noted. A sterile dressing was applied and a postprocedural chest x-ray confirms adequate placement in the right subclavian system. The tip of the catheter does proceed into the jugular system, but remains in the central access site. The dressing remained in place. There were no other apparent complications.
[2020-04-30] MEDS ORDERED: VASOPRESSIN INJ 20 UNITS/ML VIAL As Ordered ONE (12:23)
[2020-04-30] MEDS ORDERED: VASOPRESSIN INJ 20 UNITS in NS 499 ML IV SCH ×2 (12:30→13:00)
[2020-04-30] MEDS ORDERED: D5W/0.45% SODIUM CHLORIDE 1,000 ML IV SCH (12:47)
[2020-04-30] MEDS ORDERED: ATROPINE SULFATE 1% OP SOLN 2 ML BTL SL PRN (13:00)
[2020-04-30] MEDS ORDERED: MORPHINE 2 MG/ML 1ML VIAL (J2270) IV PRN (13:00)
[2020-04-30] MEDS ORDERED: BISACODYL 10 MG SUPP PR PRN (13:00)
[2020-04-30] MEDS ORDERED: LORazepam 2 MG/ML VIAL IV PRN (13:00)
[2020-04-30] MEDS ORDERED: ONDANSETRON 4MG/2ML VIAL IV PRN (13:00)
[2020-04-30] MEDS ORDERED: SCOPOLAMINE 1MG TRANSDERMAL PATCH TOP PRN (13:00)
[2020-04-30] MEDS ORDERED: COMBIVENT RESPIMAT 100-20MCG INHALER 4GM INH PRN (13:30)
[2020-04-30] MEDS: MORPHINE 2 MG/ML 1ML VIAL (J2270) IV PRN ×2 (14:21→15:32)
[2020-04-30 15:12] LABS: BODY FLUID CULTURE Not indicated. (.); LEGIONELLA ANTIGEN URINE Negative (Negative); ORGANISM ID Not indicated. (.); SPECIMEN SOURCE Urine (.); URINE STREP PNEUMONIAE ANTIGEN Negative (Negative)
--- NOTE | 2020-04-30 17:47 | DS.PDOC ---
Discharge Summary General Date of Admission Apr 25, 2020 at 01:09 Date of Discharge 04/30/20 Attending Physician: JOSE RAMON CALDERON MD Discharge Summary PROCEDURES PERFORMED DURING STAY: Subclavian Central line ADMITTING/DISCHARGE DIAGNOSES: COMPLICATIONS/CHIEF COMPLAINT: Sepsis, Covid 19. HISTORY OF PRESENT ILLNESS:This 84 yr old F is temporarily residing at a [facility] temporarily where she is receiving abx via a PICC for an infected hip prosthesis. She was transferred to [facility] w c/o dyspnea but denied having acough, fever chills or chest pain. Per the patient had O2 sats of 92% on RA, was wheezing and had LLE swelling. Her COVID 19 test was positive, CTA revealed PNA and the LLE US was unremarkable. She received zosyn, azithromycin, and remdesivir prior to transfer to [facility] was requested for a higher level of care.Remarkable lab tests from [place] Hg10 .2, Na 121, K 3.2, Cl 79, CO2 32, glucose 187, [id number] acid 6.6, CRP 133. HOSPITAL COURSE: Patient was admitted overnight for hypoxic respiratory failure secondary to Covid pneumonia and decompensated liver cirrhosis. Her oxygen requirements increased on day 1 of admission however this was attributed to her abdominal distention from decompensated liver cirrhosis rather than her Covid pneumonia. She was scheduled for abdominal paracentesis and had 4.3 L drained with significant improvement in her oxygenation. She continued to complain of generalized weakness however so she was started on physical therapy and was awaiting clearance from physical therapy when, on the morning of 04/30 she was found to have a blood pressure of 56/20 and appeared lethargic with cool and clammy extremities so the patient was immediately transferred to the ICU and started on levophed with improvement in her mentation. A central line was placed for her hypotension by Dr. Blas and she was continued on double strength levo fed, was given 2 normal saline boluses with little effect in her blood pressure and so albumin was also started. This also was not found to be very effective as her map continued to decrease so she was started on vasopressin. At this time her sister, Jo Ann, was updated of the patient's critical status and at that point Jo Ann expressed that she wanted her sister to continue with her DNR/DNI CODE STATUS but that she also thought her sister would want to be comfortable and in no pain. We continued with our care and up titrating her vasopressin however she began to have more and more episodes of ventricular tachycardia which became problematic as the patient began to experience discomfort from these episodes. The sister was again updated the patient's condition and that she feared to be more uncomfortable from these increasing episodes of ventricular tachycardia and our need to increase the amount of vasopressor agents in order to continue with adequate perfusion so at that time the sister, in line with the patient's wishes, stated that she would like to make the patient comfort measures only and withdraw care at this time. A new most form was filled out and updated with RN, Kelly Arriaga serving as a witness for the updated most form. The patient at 1721 on 04/30/20 and the body was released to the [facility]. DISCHARGE MEDICATIONS: see below. ALLERGIES: Please see below. PHYSICAL EXAMINATION ON DISCHARGE: VITAL SIGNS: none LABORATORY DATA: Please see below. IMAGIN04/27/20 CT abdomen and pelvis without contrast: "Diffuse abdominal ascites moderate in degree and increased from the most recent prior CT study of the chest. Cirrhosis pattern. New 3.8 cm low-density lesion in the right lobe of the liver, mass versus abscess. The small cortical cysts in each kidney. Gastric distention with air and fluid." 04/27/[address] without contrast: "New ground-glass opacity infiltrates left upper lobe and left lower lobe consistent with COVID-19 pneumonia. Fairly extensive left upper lobe disease. Pre-existing volume loss in the right lung and atelectasis and consolidation in the right lower lobe again seen. Moderate right pleural effusion somewhat increased from the most recent study of March 29, 2020." PROGNOSIS: ACTIVITY: N/A DIET: N/A DISCHARGE PLAN: DC [place] [facility] DISPOSITION: DC to [facility] DISCHARGE INSTRUCTIONS: none DISCHARGE CONDITION: Stable. TIME SPENT ON DISCHARGE: 20 minutes. Vital Signs/I&Os Vital Signs Date Time Temp Pulse Resp B/P (MAP) Pulse Ox O2 Delivery O2 Flow Rate FiO2 04/30/20 13:08 26 04/30/20 12:45 113 141/60 (87) 97 Room Air 04/30/20 12:19 97.7 04/30/20 10:48 2.0 I&O- Last 24 Hours up to 6 AM 04/30/20 06:00 Intake Total 0 ml Output Total 400 ml Balance -400 ml Laboratory Data Labs 24H Laboratory Tests 2 04/29/20 22:10: Bedside Glucose (Misc Panel) 115H 04/30/20 00:02: Vancomycin Level Trough 25.5*H 04/30/20 07:22: Immature Granulocyte % (Auto) 1.8, Neutrophils (%) (Auto) 81.7H, Lymphocytes (%) (Auto) 4.2L, Monocytes (%) (Auto) 12.2H, Eosinophils (%) (Auto) 0.0, Basophils (%) (Auto) 0.1, Neutrophils # (Auto) 14.9H, Lymphocytes # (Auto) 0.8L, Monocytes # (Auto) 2.2H, Eosinophils # (Auto) 0.0, Basophils # (Auto) 0.0, Nucleated Red B lood Cells % (auto) 0.0, Anion Gap 18H, Glomerular Filtration Rate 25.3L, Calcium Level 8.8#, Phosphorus Level 4.2, Magnesium Level 1.3L, Total Bilirubin 6.4H, Aspartate Amino Transf (AST/SGOT) 92H, Alanine Aminotransferase (ALT/SGPT) 11L, Alkaline Phosphatase 203H, Total Protein 5.6L, Albumin 1.4L, Albumin/Globulin Ratio 0.3L 04/30/20 10:48: Blood Gas Bicarbonate Standard 18.7L, Arterial Blood pH 7.422, Arterial Blood Partial Pressure CO2 25.4L, Arterial Blood Partial Pressure O2 64.2L, Arterial Blood Total CO2 17.0L, Arterial Blood HCO3 16.2L, Arterial Blood Base Excess - 6.9L, Arterial Blood Oxygen Saturation 90.9L 04/30/20 10:59: 04/30/20 12:07: Bedside Glucose (Misc Panel) 154H CBC/BMP Laboratory Tests 04/30/20 07:22 FSBS Laboratory Tests Test 04/29/20 22:10 04/30/20 12:07 Range/Units Bedside Glucose (Misc Panel) 115 154 83-110 MG/DL Microbiology Microbiology 04/30/20 Blood Culture, Received Pending 04/30/20 Blood Culture, Received Pending 04/28/20 Acid Fast Stain, Received Pending 04/28/20 Mycobacterial Culture, Received Pending 04/28/20 Fungal Smear, Received Pending 04/28/20 Fungal Culture, Received Pending 04/28/20 Gram Stain - Final, Complete 04/28/20 Body Fluid Culture - Final, Complete 04/25/20 Blood Culture - Final, Complete NO GROWTH AFTER 5 DAYS Discharge Medications Scheduled Ascorbic Acid (Vitamin C) 500 Mg Capsule, 500 MG PO BID, (Reported) Aspirin (Aspirin EC) 81 Mg Tablet.dr, 81 MG PO BID, (Reported) Cholecalciferol (Vitamin D3) (Vitamin D3) 25 Mcg Capsule, 25 MCG PO DAILY, (Reported) Dexamethasone (Dexamethasone) 1 Mg Tablet, 3 MG PO TID, (Reported) Insulin Detemir (Levemir) 100 Unit/1 Ml Vial, 10 UNITS SC BID, (Reported) Insulin Lispro (Insulin Lispro) 100 Unit/1 Ml Vial, 1 DOSE SQ QID, (Reported) PER SLIDING SCALE L.acidoph/L.bulg/B.bif/S.therm (Bronwyn-Bid Caplet) 1 Each Tablet, 1 TAB PO QID, (Reported) Lactulose (Lactulose) 10 Gm/15 Ml Skylar, 30 ML PO TID, (Reported) Magnesium Oxide (Magnesium Oxide) 400 Mg Tablet, 400 MG PO DAILY for constipation, (Reported) Multivitamin with Folic Acid (Thera Tablet) 400 Mcg Tablet, 1 TAB PO DAILY, (Reported) Omeprazole (Omeprazole) 20 Mg Cap, 20 MG PO DAILY, (Reported) Rifampin (Rifadin) 300 Mg Capsule, 300 MG PO BID, (Reported) 1400,2000 Spironolactone (Spironolactone) 25 Mg Tablet, 25 MG PO DAILY, (Reported) Torsemide (Torsemide) 20 Mg Tablet, 20 MG PO DAILY, (Reported) Vancomycin/Water For Inj (Peg) (Vancomycin 500 mg/100 ml Bag) 500 Mg/100 Ml Piggyback, 500 MG IV DAILY, (Reported) Zinc (Zinc) 50 Mg Tablet, 50 MG PO DAILY, (Reported) Scheduled PRN Acetaminophen (Acetaminophen) 500 Mg Tablet, 1,000 MG PO Q8H PRN for PAIN, (Reported) Magnesium Hydroxide (Milk of Magnesia) 400 Mg/5 Ml Oral.susp, 400 MG PO DAILY PRN for CONSTIPATION, (Reported) Tramadol HCl (Tramadol HCl) 50 Mg Tablet, 50 MG PO Q4H PRN for MODERATE PAIN (PS 5-7), (Reported) Allergies Coded Allergies: meperidine (Verified Adverse Reaction, Mild, N/V, 02/25/20) GME ATTESTATION GME ATTESTATION My faculty preceptor for this patient encounter was physically present during the encounter and was fully available. All aspects of the patient interview, examination, medical decision making process, and medical care plan development were reviewed and approved by the faculty preceptor. The faculty preceptor is aware and concurs with the plan as stated in the body of this note and will attest to such by his/her cosignature. ATTENDING NOTE I, Jose Ramon Calderon MD, have independently examined this patient and performed my own physical exam, as well as reviewed the documentation and edited where necessary. I have discussed in detail with the resident / student the findings and plan of treatment as documented by the resident / student and edited their note. I agree with their findings and treatment plan and have edited their documentation. JOHN OLEA DO Apr 30, 2020 17:47 JOSE RAMON CALDERON MD May 01, 2020 13:03
[2020-04-30 18:27] LABS: INFLUENZA A AMPLIFICATION NEGATIVE (NEGATIVE); INFLUENZA B AMPLIFICATION NEGATIVE (NEGATIVE)
[2020-04-30] MEDS ORDERED: VANCOMYCIN HCL 500 MG in D5W MINI-BAG PLUS 100 ML IV SCH (22:00)
== END 2020-04-30 17:21 | disposition expired | DRG 871 ==
LOC: M 4MAIN 04-25 01:09 → M ICU 04-30 05:47
PROVIDERS: ADMIT Internal Medicine; ATTEND Internal Medicine
PROC: 0W9G3ZZ Drainage of Peritoneal Cavity, Percutaneous Approach (ICD-10-PCS; principal; 2020-04-28 13:00)
DX: A41.9 Sepsis, unspecified organism (principal); U07.1 COVID-19; J12.82 Pneumonia due to coronavirus disease 2019; J96.91 Respiratory failure, unspecified with hypoxia; I50.32 Chronic diastolic (congestive) heart failure; I13.0 Hypertensive heart and chronic kidney disease with heart failure and stage 1 through stage 4 chronic kidney disease, or unspecified chronic kidney disease; J45.901 Unspecified asthma with (acute) exacerbation; E87.1 Hypo-osmolality and hyponatremia; J90 Pleural effusion, not elsewhere classified; T84.51XA Infection and inflammatory reaction due to internal right hip prosthesis, initial encounter; R57.9 Shock, unspecified; I47.2 Ventricular tachycardia; R18.8 Other ascites; N18.30 Chronic kidney disease, stage 3 unspecified; K74.60 Unspecified cirrhosis of liver; E11.22 Type 2 diabetes mellitus with diabetic chronic kidney disease; I27.20 Pulmonary hypertension, unspecified; K72.90 Hepatic failure, unspecified without coma; E87.6 Hypokalemia; Z51.5 Encounter for palliative care